=== PATIENT | female | born 1985 | race American Indian/Alaskan Native ===

== ENCOUNTER 2016-07-14 14:00 | Inpatient (IN) | payer OTHER ==
[2016-07-14] MEDS ORDERED: NACL 0.9% 1000 ML 1,000 ML IV ONE ×2 (14:26→16:24)
[2016-07-14] MEDS ORDERED: PROTONIX IV ONE (14:26)
[2016-07-14] MEDS ORDERED: CLEOCIN 600 MG/50 mL 50 ML IV ONE (14:27)
[2016-07-14 14:47] LABS: ISTAT Base Excess -7; ISTAT HCO3 18.6; ISTAT PCO2 34.2 (35-45); ISTAT PH 7.345 (7.35-7.45); ISTAT PO2 24 (80-105); ISTAT SO2 39; ISTAT TCO2 20
[2016-07-14] MEDS ORDERED: CORDARONE IV ONE (14:51)
[2016-07-14] MEDS ORDERED: XYLOCAINE 1%/ EPI 1:100,000 INFILTRATI ONE (14:51)
[2016-07-14] MEDS ORDERED: VANCOMYCIN PHARMACY TO DOSE IV SCH (15:00)
[2016-07-14 15:10] LABS: Anion Gap 24 mmol/L; BUN/Creatinine Ratio 14.14; Blood Urea Nitrogen 99 mg/dL (7-17); Calcium 8.8 mg/dL (8.4-10.2); Carbon Dioxide 16 mmol/L (22-30); Chloride 92.9 mmol/L (98-107); Glucose 107 mg/dL (65-100); Potassium 4.5 mmol/L (3.6-5.0); Sodium 128 mmol/L (137-145)
[2016-07-14 15:14] LABS: Alanine Aminotransferase 26 units/L (7-56); Albumin 2.3 g/dL (3.9-5); Albumin/Globulin Ratio 0.4 %; Alkaline Phosphatase 166 units/L (35-129); Bilirubin,Direct 1.5 mg/dL (0-0.2); Bilirubin,Indirect 0.6 mg/dL; Bilirubin,Total 2.1 mg/dL (0.1-1.2); Total Protein 8.6 g/dL (6.3-8.2)
[2016-07-14] MEDS: ZOSYN/NS 3.375GM/50ML 50 ML IV ONE ×2 (15:14→15:27)
[2016-07-14] MEDS: NACL 0.9% 1000 ML 1,000 ML IV ONE ×2 (15:14→15:28)
[2016-07-14] MEDS ORDERED: XYLOCAINE 1% 20 mL INFILTRATI ONE (15:15)
[2016-07-14 15:21] LABS: Hemoglobin 9.2 gm/dl (10.1-14.3); Mean Corpuscular HGB Conc 33 % (30-34); Mean Corpuscular Hemoglobin 26 pg (28-32); Mean Corpuscular Volume 80 fl (79-97); Platelet Count 373 K/mm3 (140-440); Red Cell Distribution Width 14.7 % (13.2-15.2); White Blood Count 17.3 K/mm3 (4.5-11.0)
[2016-07-14 15:27] LABS: Urine Drugs of Abuse Note Disclamer
[2016-07-14 15:31] LABS: INR 1.22 (0.87-1.13)
[2016-07-14 15:32] LABS: Partial Thromboplastin Time 30.8 Sec. (24.2-36.6)
[2016-07-14] MEDS ORDERED: MERREM 1,000 MG in NACL 0.9% 100 ML IV ONE (15:34)
[2016-07-14] MEDS ORDERED: SODIUM BICARBONATE IV ONE ×2 (15:40→16:13)
[2016-07-14] MEDS ORDERED: SODIUM BICARBONATE 150 MEQ in D5W 1,000 ML IV ONE (15:46)
[2016-07-14 15:56] LABS: Bacteria,Urine 2+ /HPF (Negative); Bilirubin,Urine SM (Negative); Blood,Urine NEG (Negative); Ketones,Urine NEG (Negative); Leukocyte Esterase,Urine NEG (Negative); Mucus,Urine 1+ /HPF; Nitrite,Urine NEG (Negative)
[2016-07-14] MEDS ORDERED: VANCOMYCIN/NS 1 GM/250 ML 250 ML IV NR (16:00)
[2016-07-14 16:08] LABS: Anisocytosis 1+; Basophils % (Manual) 0 % (0.0-1.8); Blastocytes % (Manual) 0 %; Eosinophils % (Manual) 0 % (0.0-4.3); Poikilocytosis 1+
--- NOTE | 2016-07-14 16:08 | Emergency Department Report ---
ED General Adult HPI - General Chief complaint: Chest Pain Stated complaint: CHEST PAIN Time Seen by Provider: 07/14/16 14:18 Source: EMS Mode of arrival: Stretcher Limitations: No Limitations - History of Present Illness Initial comments: Actually the patient is a complaint of chest pain at all. This entered an area apparently by others. This patient was transported via EMS with a heart rate of approximately 170-180 and apparent atrial fibrillation with rapid ventricular response. EMS was unsuccessful in getting IV access. The patient had an Accu-Chek obtained which was over 100. Medics state that the patient was hypotensive and they were unable to get a pulse oximetry. The patient herself was unwilling to provide any more information other than toothache 5 days. The patient was quite lethargic and as the medics described "nonverbal" largely. She would answer very limited questions. She was obviously coughing. She did admit to feeling sick for at least 5 days, weak and having a toothache. Later she would admit that she has a history of HIV which she is apparently ignored and never sought out treatment. -: days(s) Location: mouth (left lower wisdom tooth) Quality: aching Consistency: intermittent Improves with: none Worsens with: none Associated Symptoms: other (very poor historian) - Related Data Allergies Allergy/AdvReac Type Severity Reaction Status Date / Time Penicillins Allergy Swelling Verified 07/14/16 15:15 ED Review of Systems ROS: Stated complaint: CHEST PAIN Other details as noted in HPI Comment: Unobtainable due to pts medical conditions ED Past Medical Hx - Past Medical History Hx Diabetes: Yes Hx Asthma: Yes Additional medical history: HIV positive - Social History Smoking Status: Unknown if ever smoked ED Physical Exam - General Limitations: No Limitations General appearance: lethargic - Head Head exam: Present: atraumatic, normocephalic - Eye Eye exam: Present: normal appearance, PERRL, EOMI. Absent: scleral icterus - ENT ENT exam: Present: mucous membranes dry, other (and packed it and carious left third molar gingival reaction no abscess noted no trismus) - Neck Neck exam: Present: normal inspection, lymphadenopathy (mild anterior cervical adenopathy bilateral). Absent: meningismus - Respiratory Respiratory exam: Present: normal lung sounds bilaterally. Absent: respiratory distress - Cardiovascular Cardiovascular Exam: Present: regular rate, normal rhythm. Absent: systolic murmur, diastolic murmur, rubs, gallop - GI/Abdominal GI/Abdominal exam: Present: soft, normal bowel sounds. Absent: distended, tenderness, guarding, rebound, rigid - Extremities Exam Extremities exam: Present: normal inspection - Back Exam Back exam: Present: normal inspection - Neurological Exam Neurological exam: Present: CN II-XII intact (as testable), other (lethargic I don't think disoriented however). Absent: motor sensory deficit - Psychiatric Psychiatric exam: Present: anxious, flat affect - Skin Skin exam: Present: warm, dry, intact, normal color. Absent: rash ED Course Vital Signs 07/14/16 07/14/16 07/14/16 14:06 14:07 14:15 Temperature 99.1 F Pulse Rate 170 H 111 H 165 H Respiratory 20 12 24 Rate Blood Pressure 89/51 84/48 Blood Pressure 85/50 [Left] O2 Sat by Pulse 99 98 Oximetry 07/14/16 07/14/16 07/14/16 14:30 14:45 15:00 Temperature Pulse Rate 168 H 176 H 124 H Respiratory 13 19 24 Rate Blood Pressure 84/48 106/47 106/47 Blood Pressure [Left] O2 Sat by Pulse 100 79 L 84 Oximetry 07/14/16 07/14/16 07/14/16 15:15 15:30 15:50 Temperature 99.4 F Pulse Rate 120 H 117 H Respiratory 22 11 L Rate Blood Pressure 90/52 100/55 Blood Pressure [Left] O2 Sat by Pulse Oximetry 07/14/16 15:51 Temperature Pulse Rate Respiratory 20 Rate Blood Pressure Blood Pressure [Left] O2 Sat by Pulse 100 Oximetry - Reevaluation(s) Reevaluation #1: Patient presented his atrial fibrillation with a ventricular response of about 160-170. This was presumed to be related to hypovolemia. She was hypotensive. She was given a bolus of IV fluid. She did spontaneously cardiovert to sinus rhythm. Her blood pressure remained on the low side however therefore a central line was placed in the right groin. Later the patient would admit that she was HIV positive and had not ever been treated. She is still providing very little history. She obviously has cough. Chest x-ray is yet pending. The patient was treated for presumed sepsis. She is penicillin allergic. I gave her clindamycin and vancomycin and meropenem as she is penicillin allergic. Further antibiotic coverage may be necessary based on her chest x- ray and infectious disease consultation. I spoke with the marketing communications associate concerning the patient's renal failure and acidosis. We went over all her labs. The marketing communications associate agreed with the administration of one amp of bicarbonate and a bicarbonate drip to follow. She will be seeing the patient. I have already spoken to the hospitalist Dr. sOhea will be admitting this patient presumably to the intensive care unit. With additional fluids the patient's blood pressure has improved. At this point pressors have not been required. I have encouraged x-ray to do her film. 07/14/16 16:14 - Central Line Placement Left Femoral Consent Obtained: verbal consent, emergent situation Time Out Performed: No Patient Placed on Monitor/Pulse Ox: Yes MD Prep: mask, gown, gloves Central Line Prep: Chlorhexidine scrub Local Anesthesia Used: Lidocaine 1% Amount of Anesthesia Used (mls): 8 Ultrasound Used for Placement: Yes Central Line Lumen Inserted: triple Bloods Obtained for Lab: Yes Central Line Position: good blood return (venous and nonpulsatile), all ports aspirated, flus, sutured in place with 2-0 Dressing Applied: Tegaderm Patient Tolerated Procedure: well Complications: none ED Medical Decision Making - Lab Data Result diagrams: 07/14/16 14:33 07/14/16 14:33 Laboratory Results - last 24 hr 07/14/16 07/14/16 07/14/16 14:33 14:33 14:33 WBC 17.3 H RBC 3.50 L Hgb 9.2 L Hct 28.0 L MCV 80 MCH 26 L MCHC 33 RDW 14.7 Plt Count 373 Add Manual Diff Complete Total Counted 100 Seg Neuts % (Manual) 72.0 H Band Neutrophils % 18.0 Lymphocytes % (Manual) 7.0 L Reactive Lymphs % (Man) 0 Monocytes % (Manual) 2.0 Eosinophils % (Manual) 0 Basophils % (Manual) 0 Metamyelocytes % 1.0 Myelocytes % 0 Promyelocytes % 0 Blast Cells % 0 Nucleated RBC % Not Reportable Seg Neutrophils # Man 12.5 H Band Neutrophils # 3.1 Lymphocytes # (Manual) 1.2 Abs React Lymphs (Man) 0.0 Monocytes # (Manual) 0.3 Eosinophils # (Manual) 0.0 Basophils # (Manual) 0.0 Metamyelocytes # 0.2 Myelocytes # 0.0 Promyelocytes # 0.0 Blast Cells # 0.0 WBC Morphology Not Reportable Hypersegmented Neuts Not Reportable Hyposegmented Neuts Not Reportable Hypogranular Neuts Not Reportable Smudge Cells Not Reportable Toxic Granulation Not Reportable Toxic Vacuolation Not Reportable Dohle Bodies 1+ Pelger-Huet Anomaly Not Reportable Rishabh Rods Not Reportable Platelet Estimate Consistent w auto Clumped Platelets Not Reportable Plt Clumps, EDTA Not Reportable Large Platelets Not Reportable Giant Platelets Few Platelet Satelliting Not Reportable Plt Morphology Comment Not Reportable RBC Morphology Not Reportable Dimorphic RBCs Not Reportable Polychromasia Not Reportable Hypochromasia 1+ Poikilocytosis 1+ Anisocytosis 1+ Microcytosis Not Reportable Macrocytosis Not Reportable Spherocytes Not Reportable Pappenheimer Bodies Not Reportable Sickle Cells Not Reportable Target Cells Not Reportable Tear Drop Cells Not Reportable Ovalocytes 1+ Helmet Cells Not Reportable [place] Bodies Not Reportable [place] Rings Not Reportable Augusto Cells Not Reportable Bite Cells Not Reportable Crenated Cell 1+ Elliptocytes Not Reportable Acanthocytes (Spur) Not Reportable Rouleaux Not Reportable Hemoglobin C Crystals Not Reportable Schistocytes Not Reportable Malaria parasites Not Reportable Stephen Bodies Not Reportable Hem Pathologist Commnt No PT INR APTT POC ABG pH POC ABG pCO2 POC ABG pO2 POC ABG HCO3 POC ABG Total CO2 POC ABG O2 Sat POC ABG Base Excess FiO2 Sodium 128 L Potassium 4.5 Chloride 92.9 L Carbon Dioxide 16 L Anion Gap 24 BUN 99 H Creatinine 7.0 H Estimated GFR 8 BUN/Creatinine Ratio 14.14 Glucose 107 H Lactic Acid 2.0 Calcium 8.8 Magnesium Total Bilirubin Direct Bilirubin Indirect Bilirubin AST ALT Alkaline Phosphatase Troponin T NT-Pro-B Natriuret Pep Total Protein Albumin Albumin/Globulin Ratio TSH Free T4 Urine Color Urine Turbidity Urine pH Ur Specific [place] Urine Protein Urine Glucose (UA) Urine Ketones Urine Blood Urine Nitrite Urine Bilirubin Urine Ictotest Urine Urobilinogen Ur Leukocyte Esterase Urine WBC (Auto) Urine RBC (Auto) U Epithel Cells (Auto) Urine Bacteria (Auto) Urine WBC Clumps Urine Mucus Urine HCG, Qual Urine Opiates Screen Urine Methadone Screen Ur Barbiturates Screen Ur Phencyclidine Scrn Ur Amphetamines Screen U Benzodiazepines Scrn Urine Cocaine Screen U Marijuana (THC) Screen Drugs of Abuse Note 07/14/16 07/14/16 07/14/16 14:33 14:33 14:33 WBC RBC Hgb Hct MCV MCH MCHC RDW Plt Count Add Manual Diff Total Counted Seg Neuts % (Manual) Band Neutrophils % Lymphocytes % (Manual) Reactive Lymphs % (Man) Monocytes % (Manual) Eosinophils % (Manual) Basophils % (Manual) Metamyelocytes % Myelocytes % Promyelocytes % Blast Cells % Nucleated RBC % Seg Neutrophils # Man Band Neutrophils # Lymphocytes # (Manual) Abs React Lymphs (Man) Monocytes # (Manual) Eosinophils # (Manual) Basophils # (Manual) Metamyelocytes # Myelocytes # Promyelocytes # Blast Cells # WBC Morphology Hypersegmented Neuts Hyposegmented Neuts Hypogranular Neuts Smudge Cells Toxic Granulation Toxic Vacuolation Dohle Bodies Pelger-Huet Anomaly Rishabh Rods Platelet Estimate Clumped Platelets Plt Clumps, EDTA Large Platelets Giant Platelets Platelet Satelliting Plt Morphology Comment RBC Morphology Dimorphic RBCs Polychromasia Hypochromasia Poikilocytosis Anisocytosis Microcytosis Macrocytosis Spherocytes Pappenheimer Bodies Sickle Cells Target Cells Tear Drop Cells Ovalocytes Helmet Cells [place] Bodies [place] Rings Keno Cells Bite Cells Crenated Cell Elliptocytes Acanthocytes (Spur) Rouleaux Hemoglobin C Crystals Schistocytes Malaria parasites Stephen Bodies Hem Pathologist Commnt PT 15.3 H INR 1.22 H APTT 30.8 POC ABG pH POC ABG pCO2 POC ABG pO2 POC ABG HCO3 POC ABG Total CO2 POC ABG O2 Sat POC ABG Base Excess FiO2 Sodium Potassium Chloride Carbon Dioxide Anion Gap BUN Creatinine Estimated GFR BUN/Creatinine Ratio Glucose Lactic Acid Calcium Magnesium 2.2 Total Bilirubin 2.1 H Direct Bilirubin 1.5 H Indirect Bilirubin 0.6 AST 32 ALT 26 Alkaline Phosphatase 166 H Troponin T < 0.010 NT-Pro-B Natriuret Pep Total Protein 8.6 H Albumin 2.3 L Albumin/Globulin Ratio 0.4 TSH Free T4 Urine Color Urine Turbidity Urine pH Ur Specific [place] Urine Protein Urine Glucose (UA) Urine Ketones Urine Blood Urine Nitrite Urine Bilirubin Urine Ictotest Urine Urobilinogen Ur Leukocyte Esterase Urine WBC (Auto) Urine RBC (Auto) U Epithel Cells (Auto) Urine Bacteria (Auto) Urine WBC Clumps Urine Mucus Urine HCG, Qual Urine Opiates Screen Urine Methadone Screen Ur Barbiturates Screen Ur Phencyclidine Scrn Ur Amphetamines Screen U Benzodiazepines Scrn Urine Cocaine Screen U Marijuana (THC) Screen Drugs of Abuse Note 07/14/16 07/14/16 07/14/16 14:33 14:33 14:42 WBC RBC Hgb Hct MCV MCH MCHC RDW Plt Count Add Manual Diff Total Counted Seg Neuts % (Manual) Band Neutrophils % Lymphocytes % (Manual) Reactive Lymphs % (Man) Monocytes % (Manual) Eosinophils % (Manual) Basophils % (Manual) Metamyelocytes % Myelocytes % Promyelocytes % Blast Cells % Nucleated RBC % Seg Neutrophils # Man Band Neutrophils # Lymphocytes # (Manual) Abs React Lymphs (Man) Monocytes # (Manual) Eosinophils # (Manual) Basophils # (Manual) Metamyelocytes # Myelocytes # Promyelocytes # Blast Cells # WBC Morphology Hypersegmented Neuts Hyposegmented Neuts Hypogranular Neuts Smudge Cells Toxic Granulation Toxic Vacuolation Dohle Bodies Pelger-Huet Anomaly Rishabh Rods Platelet Estimate Clumped Platelets Plt Clumps, EDTA Large Platelets Giant Platelets Platelet Satelliting Plt Morphology Comment RBC Morphology Dimorphic RBCs Polychromasia Hypochromasia Poikilocytosis Anisocytosis Microcytosis Macrocytosis Spherocytes Pappenheimer Bodies Sickle Cells Target Cells Tear Drop Cells Ovalocytes Helmet Cells [place] Bodies [place] Rings Keno Cells Bite Cells Crenated Cell Elliptocytes Acanthocytes (Spur) Rouleaux Hemoglobin C Crystals Schistocytes Malaria parasites Stephen Bodies Hem Pathologist Commnt PT INR APTT POC ABG pH 7.345 L POC ABG pCO2 34.2 L POC ABG pO2 24 L POC ABG HCO3 18.6 POC ABG Total CO2 20 POC ABG O2 Sat 39 POC ABG Base Excess -7 FiO2 28 Sodium Potassium Chloride Carbon Dioxide Anion Gap BUN Creatinine Estimated GFR BUN/Creatinine Ratio Glucose Lactic Acid Calcium Magnesium Total Bilirubin Direct Bilirubin Indirect Bilirubin AST ALT Alkaline Phosphatase Troponin T NT-Pro-B Natriuret Pep 3986 H Total Protein Albumin Albumin/Globulin Ratio TSH 1.060 Free T4 1.21 Urine Color Urine Turbidity Urine pH Ur Specific [place] Urine Protein Urine Glucose (UA) Urine Ketones Urine Blood Urine Nitrite Urine Bilirubin Urine Ictotest Urine Urobilinogen Ur Leukocyte Esterase Urine WBC (Auto) Urine RBC (Auto) U Epithel Cells (Auto) Urine Bacteria (Auto) Urine WBC Clumps Urine Mucus Urine HCG, Qual Urine Opiates Screen Urine Methadone Screen Ur Barbiturates Screen Ur Phencyclidine Scrn Ur Amphetamines Screen U Benzodiazepines Scrn Urine Cocaine Screen U Marijuana (THC) Screen Drugs of Abuse Note 07/14/16 07/14/16 Unknown Unknown WBC RBC Hgb Hct MCV MCH MCHC RDW Plt Count Add Manual Diff Total Counted Seg Neuts % (Manual) Band Neutrophils % Lymphocytes % (Manual) Reactive Lymphs % (Man) Monocytes % (Manual) Eosinophils % (Manual) Basophils % (Manual) Metamyelocytes % Myelocytes % Promyelocytes % Blast Cells % Nucleated RBC % Seg Neutrophils # Man Band Neutrophils # Lymphocytes # (Manual) Abs React Lymphs (Man) Monocytes # (Manual) Eosinophils # (Manual) Basophils # (Manual) Metamyelocytes # Myelocytes # Promyelocytes # Blast Cells # WBC Morphology Hypersegmented Neuts Hyposegmented Neuts Hypogranular Neuts Smudge Cells Toxic Granulation Toxic Vacuolation Dohle Bodies Pelger-Huet Anomaly Rishabh Rods Platelet Estimate Clumped Platelets Plt Clumps, EDTA Large Platelets Giant Platelets Platelet Satelliting Plt Morphology Comment RBC Morphology Dimorphic RBCs Polychromasia Hypochromasia Poikilocytosis Anisocytosis Microcytosis Macrocytosis Spherocytes Pappenheimer Bodies Sickle Cells Target Cells Tear Drop Cells Ovalocytes Helmet Cells [place] Bodies [place] Rings Augusto Cells Bite Cells Crenated Cell Elliptocytes Acanthocytes (Spur) Rouleaux Hemoglobin C Crystals Schistocytes Malaria parasites Stephen Bodies Hem Pathologist Commnt PT INR APTT POC ABG pH POC ABG pCO2 POC ABG pO2 POC ABG HCO3 POC ABG Total CO2 POC ABG O2 Sat POC ABG Base Excess FiO2 Sodium Potassium Chloride Carbon Dioxide Anion Gap BUN Creatinine Estimated GFR BUN/Creatinine Ratio Glucose Lactic Acid Calcium Magnesium Total Bilirubin Direct Bilirubin Indirect Bilirubin AST ALT Alkaline Phosphatase Troponin T NT-Pro-B Natriuret Pep Total Protein Albumin Albumin/Globulin Ratio TSH Free T4 Urine Color Jen Urine Turbidity Turbid Urine pH 5.0 Ur Specific [place] 1.028 Urine Protein 100 mg/dl Urine Glucose (UA) Neg Urine Ketones Neg Urine Blood Neg Urine Nitrite Neg Urine Bilirubin Sm Urine Ictotest Negative Urine Urobilinogen 4.0 Ur Leukocyte Esterase Neg Urine WBC (Auto) 5.0 Urine RBC (Auto) 16.0 U Epithel Cells (Auto) 10.0 Urine Bacteria (Auto) 2+ Urine WBC Clumps 3+ Urine Mucus 1+ Urine HCG, Qual Negative Urine Opiates Screen Presumptive negative Urine Methadone Screen Presumptive negative Ur Barbiturates Screen Presumptive negative Ur Phencyclidine Scrn Presumptive negative Ur Amphetamines Screen Presumptive negative U Benzodiazepines Scrn Presumptive negative Urine Cocaine Screen Presumptive negative U Marijuana (THC) Screen Presumptive negative Drugs of Abuse Note Disclamer Laboratory Results - last 24 hr 07/14/16 07/14/16 07/14/16 14:33 14:33 14:33 WBC 17.3 H RBC 3.50 L Hgb 9.2 L Hct 28.0 L MCV 80 MCH 26 L MCHC 33 RDW 14.7 Plt Count 373 Add Manual Diff Complete Total Counted 100 Seg Neuts % (Manual) 72.0 H Band Neutrophils % 18.0 Lymphocytes % (Manual) 7.0 L Reactive Lymphs % (Man) 0 Monocytes % (Manual) 2.0 Eosinophils % (Manual) 0 Basophils % (Manual) 0 Metamyelocytes % 1.0 Myelocytes % 0 Promyelocytes % 0 Blast Cells % 0 Nucleated RBC % Not Reportable Seg Neutrophils # Man 12.5 H Band Neutrophils # 3.1 Lymphocytes # (Manual) 1.2 Abs React Lymphs (Man) 0.0 Monocytes # (Manual) 0.3 Eosinophils # (Manual) 0.0 Basophils # (Manual) 0.0 Metamyelocytes # 0.2 Myelocytes # 0.0 Promyelocytes # 0.0 Blast Cells # 0.0 WBC Morphology Not Reportable Hypersegmented Neuts Not Reportable Hyposegmented Neuts Not Reportable Hypogranular Neuts Not Reportable Smudge Cells Not Reportable Toxic Granulation Not Reportable Toxic Vacuolation Not Reportable Dohle Bodies 1+ Pelger-Huet Anomaly Not Reportable Rishabh Rods Not Reportable Platelet Estimate Consistent w auto Clumped Platelets Not Reportable Plt Clumps, EDTA Not Reportable Large Platelets Not Reportable Giant Platelets Few Platelet Satelliting Not Reportable Plt Morphology Comment Not Reportable RBC Morphology Not Reportable Dimorphic RBCs Not Reportable Polychromasia Not Reportable Hypochromasia 1+ Poikilocytosis 1+ Anisocytosis 1+ Microcytosis Not Reportable Macrocytosis Not Reportable Spherocytes Not Reportable Pappenheimer Bodies Not Reportable Sickle Cells Not Reportable Target Cells Not Reportable Tear Drop Cells Not Reportable Ovalocytes 1+ Helmet Cells Not Reportable [place] Bodies Not Reportable [place] Rings Not Reportable [place] Cells Not Reportable Bite Cells Not Reportable Crenated Cell 1+ Elliptocytes Not Reportable Acanthocytes (Spur) Not Reportable Rouleaux Not Reportable Hemoglobin C Crystals Not Reportable Schistocytes Not Reportable Malaria parasites Not Reportable Stephen Bodies Not Reportable Hem Pathologist Commnt No PT INR APTT POC ABG pH POC ABG pCO2 POC ABG pO2 POC ABG HCO3 POC ABG Total CO2 POC ABG O2 Sat POC ABG Base Excess FiO2 Sodium 128 L Potassium 4.5 Chloride 92.9 L Carbon Dioxide 16 L Anion Gap 24 BUN 99 H Creatinine 7.0 H Estimated GFR 8 BUN/Creatinine Ratio 14.14 Glucose 107 H Lactic Acid 2.0 Calcium 8.8 Magnesium Total Bilirubin Direct Bilirubin Indirect Bilirubin AST ALT Alkaline Phosphatase Troponin T NT-Pro-B Natriuret Pep Total Protein Albumin Albumin/Globulin Ratio TSH Free T4 Urine Color Urine Turbidity Urine pH Ur Specific [place] Urine Protein Urine Glucose (UA) Urine Ketones Urine Blood Urine Nitrite Urine Bilirubin Urine Ictotest Urine Urobilinogen Ur Leukocyte Esterase Urine WBC (Auto) Urine RBC (Auto) U Epithel Cells (Auto) Urine Bacteria (Auto) Urine WBC Clumps Urine Mucus Urine HCG, Qual Urine Opiates Screen Urine Methadone Screen Ur Barbiturates Screen Ur Phencyclidine Scrn Ur Amphetamines Screen U Benzodiazepines Scrn Urine Cocaine Screen U Marijuana (THC) Screen Drugs of Abuse Note 07/14/16 07/14/16 07/14/16 14:33 14:33 14:33 WBC RBC Hgb Hct MCV MCH MCHC RDW Plt Count Add Manual Diff Total Counted Seg Neuts % (Manual) Band Neutrophils % Lymphocytes % (Manual) Reactive Lymphs % (Man) Monocytes % (Manual) Eosinophils % (Manual) Basophils % (Manual) Metamyelocytes % Myelocytes % Promyelocytes % Blast Cells % Nucleated RBC % Seg Neutrophils # Man Band Neutrophils # Lymphocytes # (Manual) Abs React Lymphs (Man) Monocytes # (Manual) Eosinophils # (Manual) Basophils # (Manual) Metamyelocytes # Myelocytes # Promyelocytes # Blast Cells # WBC Morphology Hypersegmented Neuts Hyposegmented Neuts Hypogranular Neuts Smudge Cells Toxic Granulation Toxic Vacuolation Dohle Bodies Pelger-Huet Anomaly Rishabh Rods Platelet Estimate Clumped Platelets Plt Clumps, EDTA Large Platelets Giant Platelets Platelet Satelliting Plt Morphology Comment RBC Morphology Dimorphic RBCs Polychromasia Hypochromasia Poikilocytosis Anisocytosis Microcytosis Macrocytosis Spherocytes Pappenheimer Bodies Sickle Cells Target Cells Tear Drop Cells Ovalocytes Helmet Cells [place] Bodies [place] Rings Keno Cells Bite Cells Crenated Cell Elliptocytes Acanthocytes (Spur) Rouleaux Hemoglobin C Crystals Schistocytes Malaria parasites Stephen Bodies Hem Pathologist Commnt PT 15.3 H INR 1.22 H APTT 30.8 POC ABG pH POC ABG pCO2 POC ABG pO2 POC ABG HCO3 POC ABG Total CO2 POC ABG O2 Sat POC ABG Base Excess FiO2 Sodium Potassium Chloride Carbon Dioxide Anion Gap BUN Creatinine Estimated GFR BUN/Creatinine Ratio Glucose Lactic Acid Calcium Magnesium 2.2 Total Bilirubin 2.1 H Direct Bilirubin 1.5 H Indirect Bilirubin 0.6 AST 32 ALT 26 Alkaline Phosphatase 166 H Troponin T < 0.010 NT-Pro-B Natriuret Pep Total Protein 8.6 H Albumin 2.3 L Albumin/Globulin Ratio 0.4 TSH Free T4 Urine Color Urine Turbidity Urine pH Ur Specific [place] Urine Protein Urine Glucose (UA) Urine Ketones Urine Blood Urine Nitrite Urine Bilirubin Urine Ictotest Urine Urobilinogen Ur Leukocyte Esterase Urine WBC (Auto) Urine RBC (Auto) U Epithel Cells (Auto) Urine Bacteria (Auto) Urine WBC Clumps Urine Mucus Urine HCG, Qual Urine Opiates Screen Urine Methadone Screen Ur Barbiturates Screen Ur Phencyclidine Scrn Ur Amphetamines Screen U Benzodiazepines Scrn Urine Cocaine Screen U Marijuana (THC) Screen Drugs of Abuse Note 07/14/16 07/14/16 07/14/16 14:33 14:33 14:42 WBC RBC Hgb Hct MCV MCH MCHC RDW Plt Count Add Manual Diff Total Counted Seg Neuts % (Manual) Band Neutrophils % Lymphocytes % (Manual) Reactive Lymphs % (Man) Monocytes % (Manual) Eosinophils % (Manual) Basophils % (Manual) Metamyelocytes % Myelocytes % Promyelocytes % Blast Cells % Nucleated RBC % Seg Neutrophils # Man Band Neutrophils # Lymphocytes # (Manual) Abs React Lymphs (Man) Monocytes # (Manual) Eosinophils # (Manual) Basophils # (Manual) Metamyelocytes # Myelocytes # Promyelocytes # Blast Cells # WBC Morphology Hypersegmented Neuts Hyposegmented Neuts Hypogranular Neuts Smudge Cells Toxic Granulation Toxic Vacuolation Dohle Bodies Pelger-Huet Anomaly Rishabh Rods Platelet Estimate Clumped Platelets Plt Clumps, EDTA Large Platelets Giant Platelets Platelet Satelliting Plt Morphology Comment RBC Morphology Dimorphic RBCs Polychromasia Hypochromasia Poikilocytosis Anisocytosis Microcytosis Macrocytosis Spherocytes Pappenheimer Bodies Sickle Cells Target Cells Tear Drop Cells Ovalocytes Helmet Cells [place] Bodies [place] Rings Augusto Cells Bite Cells Crenated Cell Elliptocytes Acanthocytes (Spur) Rouleaux Hemoglobin C Crystals Schistocytes Malaria parasites Stephen Bodies Hem Pathologist Commnt PT INR APTT POC ABG pH 7.345 L POC ABG pCO2 34.2 L POC ABG pO2 24 L POC ABG HCO3 18.6 POC ABG Total CO2 20 POC ABG O2 Sat 39 POC ABG Base Excess -7 FiO2 28 Sodium Potassium Chloride Carbon Dioxide Anion Gap BUN Creatinine Estimated GFR BUN/Creatinine Ratio Glucose Lactic Acid Calcium Magnesium Total Bilirubin Direct Bilirubin Indirect Bilirubin AST ALT Alkaline Phosphatase Troponin T NT-Pro-B Natriuret Pep 3986 H Total Protein Albumin Albumin/Globulin Ratio TSH 1.060 Free T4 1.21 Urine Color Urine Turbidity Urine pH Ur Specific [place] Urine Protein Urine Glucose (UA) Urine Ketones Urine Blood Urine Nitrite Urine Bilirubin Urine Ictotest Urine Urobilinogen Ur Leukocyte Esterase Urine WBC (Auto) Urine RBC (Auto) U Epithel Cells (Auto) Urine Bacteria (Auto) Urine WBC Clumps Urine Mucus Urine HCG, Qual Urine Opiates Screen Urine Methadone Screen Ur Barbiturates Screen Ur Phencyclidine Scrn Ur Amphetamines Screen U Benzodiazepines Scrn Urine Cocaine Screen U Marijuana (THC) Screen Drugs of Abuse Note 07/14/16 07/14/16 Unknown Unknown WBC RBC Hgb Hct MCV MCH MCHC RDW Plt Count Add Manual Diff Total Counted Seg Neuts % (Manual) Band Neutrophils % Lymphocytes % (Manual) Reactive Lymphs % (Man) Monocytes % (Manual) Eosinophils % (Manual) Basophils % (Manual) Metamyelocytes % Myelocytes % Promyelocytes % Blast Cells % Nucleated RBC % Seg Neutrophils # Man Band Neutrophils # Lymphocytes # (Manual) Abs React Lymphs (Man) Monocytes # (Manual) Eosinophils # (Manual) Basophils # (Manual) Metamyelocytes # Myelocytes # Promyelocytes # Blast Cells # WBC Morphology Hypersegmented Neuts Hyposegmented Neuts Hypogranular Neuts Smudge Cells Toxic Granulation Toxic Vacuolation Dohle Bodies Pelger-Huet Anomaly Rishabh Rods Platelet Estimate Clumped Platelets Plt Clumps, EDTA Large Platelets Giant Platelets Platelet Satelliting Plt Morphology Comment RBC Morphology Dimorphic RBCs Polychromasia Hypochromasia Poikilocytosis Anisocytosis Microcytosis Macrocytosis Spherocytes Pappenheimer Bodies Sickle Cells Target Cells Tear Drop Cells Ovalocytes Helmet Cells Hanna-[place] Bodies Brighton Rings Augusto Cells Bite Cells Crenated Cell Elliptocytes Acanthocytes (Spur) Rouleaux Hemoglobin C Crystals Schistocytes Malaria parasites Stephen Bodies Hem Pathologist Commnt PT INR APTT POC ABG pH POC ABG pCO2 POC ABG pO2 POC ABG HCO3 POC ABG Total CO2 POC ABG O2 Sat POC ABG Base Excess FiO2 Sodium Potassium Chloride Carbon Dioxide Anion Gap BUN Creatinine Estimated GFR BUN/Creatinine Ratio Glucose Lactic Acid Calcium Magnesium Total Bilirubin Direct Bilirubin Indirect Bilirubin AST ALT Alkaline Phosphatase Troponin T NT-Pro-B Natriuret Pep Total Protein Albumin Albumin/Globulin Ratio TSH Free T4 Urine Color Jen Urine Turbidity Turbid Urine pH 5.0 Ur Specific [place] 1.028 Urine Protein 100 mg/dl Urine Glucose (UA) Neg Urine Ketones Neg Urine Blood Neg Urine Nitrite Neg Urine Bilirubin Sm Urine Ictotest Negative Urine Urobilinogen 4.0 Ur Leukocyte Esterase Neg Urine WBC (Auto) 5.0 Urine RBC (Auto) 16.0 U Epithel Cells (Auto) 10.0 Urine Bacteria (Auto) 2+ Urine WBC Clumps 3+ Urine Mucus 1+ Urine HCG, Qual Negative Urine Opiates Screen Presumptive negative Urine Methadone Screen Presumptive negative Ur Barbiturates Screen Presumptive negative Ur Phencyclidine Scrn Presumptive negative Ur Amphetamines Screen Presumptive negative U Benzodiazepines Scrn Presumptive negative Urine Cocaine Screen Presumptive negative U Marijuana (THC) Screen Presumptive negative Drugs of Abuse Note Disclamer - EKG Data -: EKG Interpreted by Me - EKG Data His cardioversion EKG showed normal sinus rhythm normal axis and fairly normal repolarization. No evidence of ischemia. 07/14/16 16:19 - Radiology Data interpreted by me: Chest x-ray appears to show a left lower lobe infiltrate. The cardiac silhouette is probably normal. Critical Care Time: Yes Critical care time in (mins) excluding proc time.: 90 Critical care attestation.: If time is entered above; I have spent that time in minutes in the direct care of this critically ill patient, excluding procedure time. ED Disposition Clinical Impression: Severe sepsis, Acute renal injury, Atrial fibrillation with RVR Hypotension Qualifiers: Hypotension type: unspecified hypotension type Qualified Code(s): I95.9 - Hypotension, unspecified Pneumonia Qualifiers: Pneumonia type: due to unspecified organism Laterality: left Lung location: lower lobe of lung Qualified Code(s): J18.9 - Pneumonia, unspecified organism Disposition: OP ADMITTED IP TO THIS HOSP Is pt being admited?: Yes Does the pt Need Aspirin: No Condition: Stable Instructions: Bacterial Pneumonia (ED) Time of Disposition: 16:23
[2016-07-14 16:09] LABS: Hypochromasia 1+
[2016-07-14 16:11] LABS: Crenated RBC 1+; Diff Status Complete; Dohle Bodies 1+; Giant Platelets Few; Ovalocytes 1+; Platelet Estimate Consistent w Auto
[2016-07-14] MEDS ORDERED: TYLENOL ONE (16:31)
[2016-07-14] MEDS ORDERED: VANCOMYCIN/NS 1 GM/250 ML 250 ML IV ONE ×2 (17:00)
[2016-07-14 17:33] LABS: BUN/Creatinine Ratio 14.84; Calcium 7.6 mg/dL (8.4-10.2); Chloride 97.8 mmol/L (98-107)
[2016-07-14 17:52] LABS: LA REFLEX Y
[2016-07-14] MEDS ORDERED: DILAUDID IV PRN (19:53)
[2016-07-14] MEDS ORDERED: ZOFRAN IV PRN (19:53)
--- NOTE | 2016-07-14 20:16 | Admit Criteria Form ---
Admission Criteria Documentation: SEPSIS and OTHER FEBRILE ILLNESS, W/O FOCAL INFECTION Clinical Indications for Admission to Inpatient Care ( Place 'X' for any and all applicable criteria): Admission is indicated for ANY ONE of the following (1)(2)(3)(4): [ ] I. Bacteremia [X ]II. Suspected or identified specific infection requiring hospitalization (eg, meningitis, endocarditis) [ X]III. Hemodynamic instability [ ]IV. Altered mental status [ ]V. Failure or unavailability of outpatient antimicrobial treatment [ ]. Hypoxemia [ ]VII. Seizures [ ]VIII. High-risk febrile neutropenia [ ]IX. Need for parenteral antibiotic in patient who is likely to abuse vascular access device (eg, injection drug user) [A](7) [ ]X. Temperature greater than 104.9 degrees F (40.5 degrees C) (oral) [ ]XI. Inpatient admission required rather than observation care because of ANY ONE of the following: [ ]1) Specific infection identified that is too severe for outpatient treatment or observation care trial [ ]2) Metabolic disorder (eg, hypoglycemia, hyperglycemia, metabolic acidosis) that is severe or persistent [ ]3) Temperature greater than 103.1 degrees F (39.5 degrees C) ( oral) that is not responsive to observation care treatment [ ]4) IV fluid to replace significant ongoing (eg, for over 24 hours) losses (> 3 L/m2 per day) [ ]5) Supplemental oxygen or respiratory treatments for over 24 hours that is performable only in acute inpatient setting [ ]6) Parenteral nutrition regimen need that must be implemented on inpatient basis [ ]7) Strict or protective (eg, laminar flow) isolation [ ]8) Other condition, treatment or monitoring requiring inpatient admission Extended stay beyond goal length of stay may be needed for(1)(3) [ ]a) Sepsis or septic shock(22) [ ]b) Positive blood cultures [ ]c) Insufficient oral intake [ ]d) High-risk febrile neutropenia(29)(30) [ ]e) Continued fever and clinical instability [ ]f) Clinically active comorbid illness (e.g,heart failure, renal failure , diabetes) The original [facility] [employer] content created by Keila Morris has been revised. The portions of the content which have been revised are identified through the use of italic text or in bold, and Keila Morris has neither reviewed nor approved the modified material. All other unmodified content is copyright [facility]. Please see references footnoted in the original [facility] edition 2016 Admission Criteria Met: Yes
--- NOTE | 2016-07-14 20:34 | Event Note ---
Date: 07/14/16 See H/p in reports Sepsis Hypotension ARF CKD HIV
[2016-07-14] MEDS ORDERED: MILK OF MAGNESIA PO PRN (20:37)
[2016-07-14] MEDS ORDERED: DULCOLAX PR PRN (20:37)
[2016-07-14] MEDS ORDERED: TYLENOL PO PRN (21:12)
[2016-07-14] MEDS ORDERED: ZOSYN/NS 2.25 GM/50ML 50 ML IV SCH (22:00)
[2016-07-14] MEDS ORDERED: VANCOMYCIN VIAL 1,000 MG in NACL 0.9% 250ML 250 ML IV SCH (22:00)
--- NOTE | 2016-07-15 06:20 | Progress Note ---
Subjective Date of service: 07/15/16 Objective - Vital Signs Vital signs: Vital Signs - 12hr 07/14/16 07/14/16 07/14/16 20:46 20:48 21:00 Temperature Pulse Rate 115 H 115 H 115 H Respiratory 27 H 25 H 29 H Rate Blood Pressure 101/58 101/58 98/48 O2 Sat by Pulse 97 97 Oximetry 07/14/16 07/14/16 07/14/16 21:16 21:30 21:46 Temperature Pulse Rate 113 H 112 H 112 H Respiratory 20 29 H 28 H Rate Blood Pressure 101/58 101/58 98/48 O2 Sat by Pulse 95 96 95 Oximetry 07/14/16 07/14/16 07/14/16 22:00 22:16 22:30 Temperature Pulse Rate 113 H 112 H 111 H Respiratory 30 H 29 H 19 Rate Blood Pressure 88/31 88/31 88/31 O2 Sat by Pulse 94 97 95 Oximetry 07/14/16 07/14/16 07/14/16 22:46 23:00 23:16 Temperature Pulse Rate 111 H 112 H 108 H Respiratory 32 H 19 28 H Rate Blood Pressure 88/31 97/51 97/51 O2 Sat by Pulse 96 95 Oximetry 07/14/16 07/14/16 07/15/16 23:30 23:45 00:00 Temperature 98.7 F Pulse Rate 107 H 103 H Respiratory 32 H 26 H Rate Blood Pressure 97/51 97/51 97/51 O2 Sat by Pulse 96 95 Oximetry 07/15/16 07/15/16 07/15/16 00:16 00:30 00:45 Temperature Pulse Rate 109 H 108 H Respiratory 19 13 Rate Blood Pressure 107/53 107/53 97/51 O2 Sat by Pulse 99 96 92 Oximetry 07/15/16 07/15/16 07/15/16 01:00 01:16 01:22 Temperature Pulse Rate 111 H 111 H 109 H Respiratory 24 25 H 24 Rate Blood Pressure 107/53 101/53 101/53 O2 Sat by Pulse 97 98 97 Oximetry 07/15/16 07/15/16 07/15/16 01:30 01:46 02:00 Temperature Pulse Rate 109 H 106 H 112 H Respiratory 24 21 23 Rate Blood Pressure 101/53 101/53 101/53 O2 Sat by Pulse 100 97 95 Oximetry 07/15/16 07/15/16 07/15/16 02:16 02:20 02:30 Temperature Pulse Rate 106 H 105 H 104 H Respiratory 27 H 24 21 Rate Blood Pressure 110/53 107/53 110/53 O2 Sat by Pulse 96 100 96 Oximetry 07/15/16 07/15/16 07/15/16 02:46 03:00 05:00 Temperature 98.5 F Pulse Rate 106 H 107 H Respiratory 13 29 H Rate Blood Pressure 110/53 109/49 O2 Sat by Pulse 90 93 Oximetry - Lab 07/14/16 14:33 07/14/16 17:01 Most recent lab results Calcium 7.6 mg/dL (8.4-10.2) L 07/14/16 17:01 Magnesium 2.2 mg/dL (1.7-2.3) 07/14/16 14:33
[2016-07-15] MEDS: DILAUDID IV PRN ×4 (07:57→21:49)
[2016-07-15] MEDS ORDERED: VANCOMYCIN VIAL 1,000 MG in NACL 0.9% 250ML 250 ML IV SCH (08:00)
--- NOTE | 2016-07-15 08:34 | History and Physical Report ---
CHIEF COMPLAINT: Chest pain. HISTORY OF PRESENT ILLNESS: A 31-year-old female with history of HIV, called in for chest pain. When the EMS arrived, the patient had a heart rate of approximately 170 to 180 and was in atrial fibrillation with rapid ventricular response. The patient had an Accu-Chek of more than 100. The patient was hypotensive. The patient was apparently to take for 5 days. The patient was quite lethargic and nonverbal. She was coughing, feeling sick for the last 5 days. Has history of HIV and did not taking any medications, following up for her HIV. Very poor historian. Chest pain is better in the ER, but the patient continues to cough and has a low blood pressure in the ER. PAST MEDICAL HISTORY: Diabetes, asthma, and HIV positive. SOCIAL HISTORY: Does not smoke. FAMILY HISTORY: Unknown. PAST SURGICAL HISTORY: None. CURRENT MEDICATIONS: None. REVIEW OF SYSTEMS: CONSTITUTIONAL: Has fever and chills. No weight loss. HEENT: No sore throat. No postnasal drip. CARDIOVASCULAR: Has chest pain and palpitations. No diaphoresis. RESPIRATORY: Cough present. Some wheezing present. Cough productive of mucoid to yellow sputum. GASTROINTESTINAL: No nausea, no vomiting, no diarrhea. GENITOURINARY: No dysuria, no flank pain. MUSCULOSKELETAL: No joint pains. CENTRAL NERVOUS SYSTEM: No syncope, no seizures. SKIN: No rashes. PSYCHIATRIC: No depression. No homicidal or suicidal thoughts. A 14-point review of systems done, other than fever, chills, and cough and feeling weak and chest pain, the review of systems is essentially negative. PHYSICAL EXAMINATION: GENERAL: Young female, cooperative during examination. VITAL SIGNS: Temperature 99.1, pulse is 170 it has come down to 111, 117. Blood pressure is 89/51, O2 sats are 99%, and respiratory rate is 20. HEENT: Slightly dry mucous membranes. NECK: Supple, no lymphadenopathy, no thyromegaly. LUNGS: Clear to auscultation and percussion. Good air entry. CARDIOVASCULAR: S1, S2 heard. No gallop, no murmur, no rub. Apical impulse in left fifth intercostal space and midclavicular line. ABDOMEN: Soft and benign. No hepatosplenomegaly. No guarding, no rigidity. Hernial orifices are normal. EXTREMITIES: Good pedal pulses. No pedal edema. CENTRAL NERVOUS SYSTEM: Alert, slightly altered sensorium present. SKIN: Normal. LABORATORY DATA: White count is 17,300, H and H is 9.2 and 28.0, platelet count is 373,000. ABG was done, pH was 7.34, pCO2 of 34, pO2 of 24, bicarbonate of 18. Sodium is 128, potassium is 4.5, BUN and creatinine is 99 and 7.0. Lactic acid is 2.0. Total bilirubin is 2.1. AST, ALT are normal. ProBNP is 3986. TSH is 1.06. Urine was negative 16 RBCs. Toxicology was negative. Chest x-ray was negative. EKG, cardioversion was spontaneous and then it showed normal sinus rhythm with normal axis with a heart rate of 100. Chest x-ray shows left lower lobe infiltrate. ASSESSMENT AND PLAN: 1. Sepsis secondary to possible left lower lobe infiltrate. The patient was started on IV Zosyn and IV vancomycin. 2. Left lower lobe pneumonia. IV Zosyn and IV vancomycin. ID consult requested. 3. Sepsis with hypotension. IV fluids for the time being because of the high creatinine. 4. Acute on chronic renal failure. The patient may end up needing emergent dialysis if creatinine does not improve. 5. Hypotension, as mentioned IV fluids. 6. Human-immunodeficiency virus status. The patient does not elaborate CD4 count, etc. We will have to order CD4 count. ID consultation requested for HIV treatment and also for sepsis. 7. Deep venous thrombosis prophylaxis, Lovenox 40 mg subcutaneous daily. The patient to be admitted to ICU because of sepsis, hypotension and acute renal failure. CRITICAL CARE STATEMENT: The high probability for a clinically significant sudden or life-threatening deterioration of the cardiovascular system, required my full and direct attention, intervention, and personal management. The aggregate critical care time was 40 minutes. At the time of examination, the time spent performing reported procedures, but include the following, 1. Data review and interoperation. 2. The patient assessment and monitoring of vital signs. 3. Documentation. 4. Medication orders and management. JOB# [id number] ARACELI/JOAQUIN
[2016-07-15 08:40] LABS: Bacteria,Urine 2+ /HPF (Negative); Bilirubin,Urine NEG (Negative); Blood,Urine LG (Negative); Ketones,Urine NEG (Negative); Leukocyte Esterase,Urine SM (Negative); Mucus,Urine FEW /HPF; Nitrite,Urine NEG (Negative)
[2016-07-15 08:44] LABS: Hematocrit 21.6 % (30.3-42.9); Hemoglobin 7.1 gm/dl (10.1-14.3); Mean Corpuscular HGB Conc 33 % (30-34); Mean Corpuscular Volume 77 fl (79-97); Platelet Count 323 K/mm3 (140-440); Red Blood Count 2.82 M/mm3 (3.65-5.03); Red Cell Distribution Width 14.4 % (13.2-15.2)
[2016-07-15 08:46] LABS: Mean Corpuscular Hemoglobin 25 pg (28-32)
--- NOTE | 2016-07-15 09:19 | XRay Report ---
Single view chest: History: Hypotension. Findings: Normal cardiomediastinal silhouette. Trachea is midline. Faint infiltrate left lower lobe. Normal CT angles. Impression: Faint infiltrate left lower lobe.
[2016-07-15 09:31] LABS: BUN/Creatinine Ratio 15.07; Calcium 7.8 mg/dL (8.4-10.2); Chloride 97.6 mmol/L (98-107); Potassium 4.1 mmol/L (3.6-5.0)
--- NOTE | 2016-07-15 09:36 | Consultation ---
History of Present Illness - Reason for Consult Consult date: 07/15/16 acute renal failure, metabolic acidosis - History of Present Illness Mrs. Carroll is a 31yo female with HIV who reports being in usual state of health until appx 1.5 week ago when she began having night sweats followed by nasuea/vomiting. She denies fevers. She reports inability to tolerate po intake since that time. Mrs. Carroll denies abdominal pain, constipation and diarrhea. She denies sick contacts. She also reports difficulty urinating over the past several days. She denies NSAIDs, hemoptysis, epistaxis and hematuria. She reports a family hx of kidney disease - mother, hx of DM, was on dialysis Past History Past Medical History: HIV/AIDS Past Surgical History: No surgical history Social history: no significant social history Family history: other (Mother with ESRD, DM - ) Medications and Allergies Allergies Allergy/AdvReac Type Severity Reaction Status Date / Time Penicillins Allergy Swelling Verified 07/14/16 15:15 Home Medications Medication Instructions Recorded Confirmed Last Taken Type No Known Home Medications [No 07/14/16 07/14/16 Unknown History Reported Home Medications] Active Meds: Active Medications Acetaminophen (Tylenol) 650 mg PO Q4H PRN PRN Reason: Pain MILD(1-3)/Fever >100.5/RODRIGUES Benzonatate (Tessalon Perles) 100 mg PO Q8HR PRN PRN Reason: cough Bisacodyl (Dulcolax) 10 mg [place] QDAY PRN PRN Reason: Constipation unrelieved by MOM Hydromorphone HCl (Dilaudid) 1 mg IV Q3H PRN PRN Reason: Pain , Severe (7-10) Last Admin: 07/15/16 07:57 Dose: 1 mg Sodium Bicarbonate 150 meq/ (Dextrose) 1,150 mls @ 75 mls/hr IV DIRECT DARYA Dextrose/Sodium Chloride (D5ns) 1,000 mls @ 125 mls/hr IV DIRECT DARYA Meropenem (Merrem/Ns 500 Mg/50 Ml) 50 mls @ 50 mls/hr IV Q6HR DARYA Vancomycin HCl 1,000 mg/ (Sodium Chloride) 250 mls @ 167 mls/hr IV Q24H DARYA PRN Reason: Protocol Magnesium Hydroxide (Milk Of Magnesia) 30 ml PO Q4H PRN PRN Reason: Constipation Ondansetron HCl (Zofran) 4 mg IV Q3H PRN PRN Reason: N/V unrelieved by Reglan Review of Systems Constitutional: sweats, anorexia, fatigue, weakness, poor appetite, no fever, no chills Ears, nose, mouth and throat: no epistaxis Breasts: deferred Cardiovascular: no chest pain, no orthopnea, no syncope, no shortness of breath , no dyspnea on exertion Respiratory: no cough, no hemoptysis, no shortness of breath, no dyspnea on exertion Gastrointestinal: nausea, vomiting, no abdominal pain, no diarrhea, no constipation, no BRBPR, no melena Genitourinary Female: difficulty voiding, no dysuria, no urinary frequency, no hematuria Integumentary: no rash Exam - Vital Signs Vital signs: Vital Signs Temp Pulse Resp BP Pulse Ox 99.1 F 179 H 20 85/50 99 07/14/16 14:06 07/14/16 14:06 07/14/16 14:06 07/14/16 14:06 07/14/16 14:06 - General Appearance General appearance: well-developed, well-nourished EENT: ATNC Respiratory: Decreased Breath Sounds Heart: tachycardia Gastrointestinal: Present: normal. Absent: tenderness, distended Integumentary: no rash Neurologic: no focal deficit, alert and oriented x3 Musculoskeletal: Present: other (no edema) Psychiatric: cooperative Results - Lab Results 07/16/16 06:00 07/16/16 06:00 Most recent lab results Calcium 7.8 mg/dL (8.4-10.2) L 07/15/16 Unknown Magnesium 2.2 mg/dL (1.7-2.3) 07/14/16 14:33 Assessment and Plan Impression: * Oliguric cute kidney injury secondary to ATN vs HIVAN * Sepsis * HIV * Metabolic acidosis Plan: * Patient w/ minimal UOP, worsening renal function and sx of uremia. Renal function unimproved with hydration. Will plan for hemodialysis today * Consult vascular surgery for vascath placement * Obtain serologic work up * Obtain urine studies * Await renal u/s * If renal function fails to recover, patient may require renal bx for diagnosis /prognosis
[2016-07-15] MEDS ORDERED: VANCOMYCIN/NS 1 GM/250 ML 250 ML IV ONE ×2 (09:51→14:09)
[2016-07-15 10:02] LABS: Basophils % (Manual) 0 % (0.0-1.8); Blastocytes % (Manual) 0 %; Eosinophils % (Manual) 0 % (0.0-4.3); Total Cells Counted Percent 0
[2016-07-15 10:03] LABS: Anisocytosis 1+; Dohle Bodies 1+; Hypochromasia 1+; Microcytosis 1+; Ovalocytes 1+; Poikilocytosis 1+
[2016-07-15 10:04] LABS: Burr Cells Few; Diff Status Complete; Target Cells Rare
[2016-07-15] MEDS ORDERED: NACL 0.9% 1000 ML 100 ML IV PRN (10:51)
--- NOTE | 2016-07-15 11:30 | Consultation ---
History of Present Illness - Reason for Consult Consult date: 07/15/16 Sepsis; HIV Requesting physician: MIKY ONOFRE - History of Present Illness Helga Carroll is a 31 y/o female with HIV infection, type 2 DM and asthma who was admitted to [facility] on 07/14 with a several day history of anterior chest pain, cough with occasional "greenish sputum production, subjective fevers and chills and was found to be hypotensive in the ED. She states that at first she though she had a "simple cold" but when the symptoms progressed she came to the ED and was referred to the hospitalist service and admitted. She has not had any shortness of breath or dyspnea on exertion. She also noted markedly decreased urine output. She has been HIV positive since 2011 and has been followed at the [facility]. She has been maintained on HAART with Truvada, Norvir & prezista which she states that she is compliant in taking. She says that she has been told that she is "undetectable" and her CD4 i s"good" but is unaware of the exact number. She has not had any HIV related complications or hospitalizations. No friends or family members have been ill except her 1 year old child has had a "mild cold." Review of systems General: see HPI HEENT: no odynophagia, no dysphagia, no oral lesions, no vision changes CV: no exertional chest pain, no palpitations Chest: see HPI. Pleuritic quality chest pain. GI: no abdominal pain, no N/V, no diarrhea : no change in urinary frequency, no dysuria, no hematuria Skin: no rashes; Ext: No muscle or joint pain, No edema Neuro: no headaches, no numbness/tingling, no tremors Endocrine: No history of diabetes. Psych: no anxiety, no depression Infectious diseases: + HIV as per HPI. Past History Past Medical History: HIV/AIDS Medications and Allergies Allergies Allergy/AdvReac Type Severity Reaction Status Date / Time Penicillins Allergy Swelling Verified 07/14/16 15:15 Home Medications Medication Instructions Recorded Confirmed Last Taken Type No Known Home Medications [No 07/14/16 07/14/16 Unknown History Reported Home Medications] Active Meds: Active Medications Acetaminophen (Tylenol) 650 mg PO Q4H PRN PRN Reason: Pain MILD(1-3)/Fever >100.5/RODRIGUES Benzonatate (Tessalon Perles) 100 mg PO Q8HR PRN PRN Reason: cough Bisacodyl (Dulcolax) 10 mg [place] QDAY PRN PRN Reason: Constipation unrelieved by MOM Hydromorphone HCl (Dilaudid) 1 mg IV Q3H PRN PRN Reason: Pain , Severe (7-10) Last Admin: 07/15/16 07:57 Dose: 1 mg Sodium Bicarbonate 150 meq/ (Dextrose) 1,150 mls @ 75 mls/hr IV DIRECT DARYA Dextrose/Sodium Chloride (D5ns) 1,000 mls @ 125 mls/hr IV DIRECT DARYA Sodium Chloride (Nacl 0.9% 1000 Ml) 100 mls @ 999 mls/hr IV BORIS PRN PRN Reason: Hypotension Meropenem 500 mg/ Sodium (Chloride) 100 mls @ 100 mls/hr IV Q24HR DARYA Magnesium Hydroxide (Milk Of Magnesia) 30 ml PO Q4H PRN PRN Reason: Constipation Ondansetron HCl (Zofran) 4 mg IV Q3H PRN PRN Reason: N/V unrelieved by Reglan Vancomycin HCl (Vancomycin Pharmacy To Dose) 1 each IV PKCONSULT DARYA Physical Examination - Physical Exam Narrative exam: GENERAL: Well-developed, well-nourished appearing female who is alert and in no acute distress. She only appears mildly ill. HEAD: Normocephalic. No lesions seen. EYES: Pupils are equal reactive to light and accommodation. There is no scleral icterus. Optic fundi are normal. EARS: Tympanic membranes are normal. THROAT: Oropharynx is normal with no evidence of oral candidiasis or pharyngitis. Mildly dry mucus membranes. NECK: Supple. No enlargement of the thyroid gland. No significant cervical lymphadenopathy. No jugular venous distention at 30. LUNGS: Clear with no adventitious sounds. CHEST: Mild tenderness over the anterior chest with no other onjective findings. HEART: Regular rate. S1 and S2 are normal. There are no murmurs, gallops, clicks or rubs heard. ABDOMEN: Soft, mildly distended and nontender. Liver and spleen are not palpably enlarged or tender. No palpable masses. Bowel sounds are normoactive. EXTREMITIES: No peripheral lymphadenopathy, clubbing or edema. SKIN: Multiple tattoos; no rash : Not examined NEUROLOGIC: No focal findings. - Constitutional Vitals: Vital Signs Temp Pulse Resp BP Pulse Ox 98.5 F 99 H 22 100/59 93 07/15/16 05:00 07/15/16 11:00 07/15/16 11:00 07/15/16 11:00 07/15/16 11:00 Temperature -Last 24 Hours Temperature 98.5 F Temperature 98.7 F Results - Labs CBC & Chem 7: 07/15/16 Unknown 07/15/16 Unknown Labs: Abnormal lab results Laboratory Tests 07/14/16 07/14/16 07/14/16 14:33 14:33 Unknown BUN 99 H Creatinine 7.0 H Total Bilirubin 2.1 H Direct Bilirubin 1.5 H Alkaline Phosphatase 166 H Albumin 2.3 L Urine WBC (Auto) 5.0 Urine RBC (Auto) 16.0 Laboratory Tests 07/14/16 07/14/16 14:33 17:01 Lactic Acid 2.0 1.6 Microbiology 07/14/16 14:20 Urine,Catheterized - Straight Catheter Urine Culture - Preliminary NO GROWTH AFTER 24 HOURS 07/14/16 14:33 Peripheral/Venous Blood Culture - Preliminary Culture in Progress 07/14/16 14:33 Peripheral/Venous Blood Culture - Preliminary Culture in Progress Imagin/22: CXR: Faint left lower lobe infiltrate Assessment and Plan Current antibiotics: Meropenem 1 g IV q24h 07/14 --> Vancomycin (pulse dose) IV 07/14 --> Previous antibiotics: Clindamycin 600 mg IV X 1 07/14 ASSESSMENT: Helga Carroll is a 31 y/o female with HIV infection, type 2 DM and asthma who was admitted to [facility] on 07/14 with a several day history of anterior chest pain, cough with occasional "greenish sputum production, subjective fevers and chills and was found to be hypotensive in the ED. She was also found to have MARY. Problem list: 1. Sepsis syndrome -History of fever, MARY, cough and malaise -Rule out viral illness including acute Influenza -Rule out pneumonia although CXR is not impressive to my review -Rule bacteremia -Doubt HIV related OI with her CD4 reportedly "good." 2. HIV infection -ARV therapy: Truvada, Norvir & darunavir -CD4 and VL unclear although reportedly "good." 3. MARY -? secondary to #1 4. Leukocytosis -Secondary to #1 5. Penicillin allergy -"Tongue swells up" 6. Anemia Plan: 1. Will continue empiric vancomycin and meropenem pending culture data 2. Continue Truvada and darunavir/Norvir 3. Will track down information from the [facility] 4. Continued supportive measures as are being done Thank you for this consultation. We will follow with you. Mark Sanchez MD [facility] Office: [phone]
[2016-07-15] MEDS ORDERED: VANCOMYCIN PHARMACY TO DOSE IV SCH (12:00)
[2016-07-15] MEDS ORDERED: MERREM/NS 500 MG/50 ML 50 ML IV SCH (12:00)
[2016-07-15] MEDS ORDERED: HEPARIN/NS 5000 UNIT/500ML(CATH LAB) 500 ML IR ONE (14:09)
[2016-07-15] MEDS: XYLOCAINE 1%/ EPI 1:100,000 INFILTRATI ONE ×2 (14:46→14:49)
[2016-07-15] MEDS: SUBLIMAZE ONE ×2 (14:46→14:50)
--- NOTE | 2016-07-15 14:56 | Progress Note ---
Assessment and Plan Assessment and plan: --Septic shock Continue Levophed, titrate systolic blood pressures to more than 100 Follow cultures and supportive care empiric antibiotics, vancomycin and meropenem ID following, Admit to ICU for close observation --Possible pneumonia left lower lobe Continue current antibiotics follow cultures --Acute and chronic renal failure; nephrology following hemodialysis per schedule --History of HIV AIDS on antiretrovirals, we will hold HIV medications as patient has sepsis, Acute renal failure, --Chronic anemia closely monitor transfuse as needed Iron supplements --DVT prophylaxis with Lovenox Consults noted and appreciated Closely monitor the patient and adjust management as needed Plan of care discussed with the patient as well as her Critical care time 31 minutes The high probability of a clinically significant, sudden or life threatening deterioration of the [pulmonology , infectious diseases , and renal] system(s) required my full and direct attention, intervention and personal management. The aggregate critical care time was [31] minutes. This time is in addition to time spent performing reported procedures but includes the following: [x] Data Review and interpretation [x] Patient assessment and monitoring of vital signs [x] Documentation [x] Medication orders and management History Interval history: Patient seen and evaluated in ER awaiting her room assignment Medical records reviewed, patient was admitted with sepsis and shortness of breath and chest pain Noted to be hypotensive on pressors Patient feels slightly better denies any chest pain or shortness of breath, complains of generalized weakness Mild nausea no vomiting Alert awake oriented 3 not in acute distress Hospitalist Physical - Constitutional Vitals: Temp Pulse Resp BP Pulse Ox 98.6 F 82 18 92/60 98 07/15/16 12:15 07/15/16 13:00 07/15/16 13:00 07/15/16 12:00 07/15/16 12:15 General appearance: Present: mild distress, well-nourished - EENT Eyes: Present: PERRL, EOM intact - Neck Neck: Present: supple, normal ROM - Respiratory Respiratory effort: normal Respiratory: bilateral: diminished, negative: rales, rhonchi, wheezing - Cardiovascular Rhythm: regular Heart Sounds: Present: S1 & S2 - Extremities Extremities: no ischemia, pulses intact, pulses symmetrical Peripheral Pulses: within normal limits - Abdominal General gastrointestinal: soft, non-tender, non-distended, normal bowel sounds - Integumentary Integumentary: Present: clear, warm - Psychiatric Psychiatric: appropriate mood/affect, cooperative - Neurologic Neurologic: CNII-XII intact, moves all extremities Results - Labs CBC & Chem 7: 07/15/16 Unknown 07/15/16 Unknown Labs: Laboratory Last Values WBC 19.0 K/mm3 (4.5-11.0) H 07/15/16 Unknown RBC 2.82 M/mm3 (3.65-5.03) L 07/15/16 Unknown Hgb 7.1 gm/dl (10.1-14.3) L 07/15/16 Unknown Hct 21.6 % (30.3-42.9) L D 07/15/16 Unknown MCV 77 fl (79-97) L D 07/15/16 Unknown MCH 25 pg (28-32) L 07/15/16 Unknown MCHC 33 % (30-34) 07/15/16 Unknown RDW 14.4 % (13.2-15.2) 07/15/16 Unknown Plt Count 323 K/mm3 (140-440) 07/15/16 Unknown Lymph % (Auto) Refrigeration Operator 07/15/16 Unknown [place] % (Auto) Refrigeration Operator 07/15/16 Unknown Eos % (Auto) Refrigeration Operator 07/15/16 Unknown Baso % (Auto) Refrigeration Operator 07/15/16 Unknown Lymph # Refrigeration Operator 07/15/16 Unknown [place] # Refrigeration Operator 07/15/16 Unknown Eos # Refrigeration Operator 07/15/16 Unknown Baso # Refrigeration Operator 07/15/16 Unknown Add Manual Diff Complete 07/15/16 Unknown Total Counted 100 07/15/16 Unknown Seg Neutrophils % Refrigeration Operator 07/15/16 Unknown Seg Neuts % (Manual) 81.0 % (40.0-70.0) H 07/15/16 Unknown Band Neutrophils % 14.0 % 07/15/16 Unknown Lymphocytes % (Manual) 5.0 % (13.4-35.0) L 07/15/16 Unknown Reactive Lymphs % (Man) 0 % 07/15/16 Unknown Monocytes % (Manual) 0 % (0.0-7.3) 07/15/16 Unknown Eosinophils % (Manual) 0 % (0.0-4.3) 07/15/16 Unknown Basophils % (Manual) 0 % (0.0-1.8) 07/15/16 Unknown Metamyelocytes % 0 % 07/15/16 Unknown Myelocytes % 0 % 07/15/16 Unknown Promyelocytes % 0 % 07/15/16 Unknown Blast Cells % 0 % 07/15/16 Unknown Nucleated RBC % Not Reportable 07/15/16 Unknown Seg Neutrophils # Refrigeration Operator 07/15/16 Unknown Seg Neutrophils # Man 15.4 K/mm3 (1.8-7.7) H 07/15/16 Unknown Band Neutrophils # 2.7 K/mm3 07/15/16 Unknown Lymphocytes # (Manual) 1.0 K/mm3 (1.2-5.4) L 07/15/16 Unknown Abs React Lymphs (Man) 0.0 K/mm3 07/15/16 Unknown Monocytes # (Manual) 0.0 K/mm3 (0.0-0.8) 07/15/16 Unknown Eosinophils # (Manual) 0.0 K/mm3 (0.0-0.4) 07/15/16 Unknown Basophils # (Manual) 0.0 K/mm3 (0.0-0.1) 07/15/16 Unknown Metamyelocytes # 0.0 K/mm3 07/15/16 Unknown Myelocytes # 0.0 K/mm3 07/15/16 Unknown Promyelocytes # 0.0 K/mm3 07/15/16 Unknown Blast Cells # 0.0 K/mm3 07/15/16 Unknown WBC Morphology Not Reportable 07/15/16 Unknown Hypersegmented Neuts Not Reportable 07/15/16 Unknown Hyposegmented Neuts Not Reportable 07/15/16 Unknown Hypogranular Neuts Not Reportable 07/15/16 Unknown Smudge Cells Not Reportable 07/15/16 Unknown Toxic Granulation Not Reportable 07/15/16 Unknown Toxic Vacuolation Not Reportable 07/15/16 Unknown Dohle Bodies 1+ 07/15/16 Unknown Pelger-Huet Anomaly Not Reportable 07/15/16 Unknown Rishabh Rods Not Reportable 07/15/16 Unknown Platelet Estimate Appears normal 07/15/16 Unknown Clumped Platelets Not Reportable 07/15/16 Unknown Plt Clumps, EDTA Not Reportable 07/15/16 Unknown Large Platelets Not Reportable 07/15/16 Unknown Giant Platelets Not Reportable 07/15/16 Unknown Platelet Satelliting Not Reportable 07/15/16 Unknown Plt Morphology Comment Not Reportable 07/15/16 Unknown RBC Morphology Not Reportable 07/15/16 Unknown Dimorphic RBCs Not Reportable 07/15/16 Unknown Polychromasia Not Reportable 07/15/16 Unknown Hypochromasia 1+ 07/15/16 Unknown Poikilocytosis 1+ 07/15/16 Unknown Anisocytosis 1+ 07/15/16 Unknown Microcytosis 1+ 07/15/16 Unknown Macrocytosis Not Reportable 07/15/16 Unknown Spherocytes Not Reportable 07/15/16 Unknown Pappenheimer Bodies Not Reportable 07/15/16 Unknown Sickle Cells Not Reportable 07/15/16 Unknown Target Cells Rare 07/15/16 Unknown Tear Drop Cells Not Reportable 07/15/16 Unknown Ovalocytes 1+ 07/15/16 Unknown Helmet Cells Not Reportable 07/15/16 Unknown Hanna-Lyle Bodies Not Reportable 07/15/16 Unknown [place] Rings Not Reportable 07/15/16 Unknown Augusto Cells Few 07/15/16 Unknown Bite Cells Not Reportable 07/15/16 Unknown Crenated Cell Not Reportable 07/15/16 Unknown Elliptocytes Not Reportable 07/15/16 Unknown Acanthocytes (Spur) Not Reportable 07/15/16 Unknown Rouleaux Not Reportable 07/15/16 Unknown Hemoglobin C Crystals Not Reportable 07/15/16 Unknown Schistocytes Not Reportable 07/15/16 Unknown Malaria parasites Not Reportable 07/15/16 Unknown Stephen Bodies Not Reportable 07/15/16 Unknown Hem Pathologist Commnt No 07/15/16 Unknown PT 15.3 Sec. (12.2-14.9) H 07/14/16 14:33 INR 1.22 (0.87-1.13) H 07/14/16 14:33 APTT 30.8 Sec. (24.2-36.6) 07/14/16 14:33 POC ABG pH 7.345 (7.35-7.45) L 07/14/16 14:42 POC ABG pCO2 34.2 (35-45) L 07/14/16 14:42 POC ABG pO2 24 (80-105) L 07/14/16 14:42 POC ABG HCO3 18.6 07/14/16 14:42 POC ABG Total CO2 20 07/14/16 14:42 POC ABG O2 Sat 39 07/14/16 14:42 POC ABG Base Excess -7 07/14/16 14:42 FiO2 28 % 07/14/16 14:42 Sodium 134 mmol/L (137-145) L 07/15/16 Unknown Potassium 4.1 mmol/L (3.6-5.0) 07/15/16 Unknown Chloride 97.6 mmol/L (98-107) L 07/15/16 Unknown Carbon Dioxide 22 mmol/L (22-30) 07/15/16 Unknown Anion Gap 19 mmol/L 07/15/16 Unknown BUN 104 mg/dL (7-17) H 07/15/16 Unknown Creatinine 6.9 mg/dL (0.7-1.2) H 07/15/16 Unknown Estimated GFR 8 ml/min 07/15/16 Unknown BUN/Creatinine Ratio 15.07 % 07/15/16 Unknown Glucose 99 mg/dL (65-100) 07/15/16 Unknown Lactic Acid 1.6 mmol/L (0.7-2.0) 07/14/16 17:01 Calcium 7.8 mg/dL (8.4-10.2) L 07/15/16 Unknown Magnesium 2.2 mg/dL (1.7-2.3) 07/14/16 14:33 Total Bilirubin 2.1 mg/dL (0.1-1.2) H 07/14/16 14:33 Direct Bilirubin 1.5 mg/dL (0-0.2) H 07/14/16 14:33 Indirect Bilirubin 0.6 mg/dL 07/14/16 14:33 AST 32 units/L (5-40) 07/14/16 14:33 ALT 26 units/L (7-56) 07/14/16 14:33 Alkaline Phosphatase 166 units/L (35-129) H 07/14/16 14:33 Troponin T < 0.010 ng/mL (0.00-0.029) 07/14/16 14:33 NT-Pro-B Natriuret Pep 3986 pg/mL (0-450) H 07/14/16 14:33 Total Protein 8.6 g/dL (6.3-8.2) H 07/14/16 14:33 Albumin 2.3 g/dL (3.9-5) L 07/14/16 14:33 Albumin/Globulin Ratio 0.4 % 07/14/16 14:33 TSH 1.060 mlU/mL (0.270-4.200) 07/14/16 14:33 Free T4 1.21 ng/dL (0.76-1.46) 07/14/16 14:33 Urine Color Jen (Yellow) 07/15/16 07:11 Urine Turbidity Cloudy (Clear) 07/15/16 07:11 Urine pH 5.0 (5.0-7.0) 07/15/16 07:11 Ur Specific [place] 1.016 (1.003-1.030) 07/15/16 07:11 Urine Protein 30 mg/dl mg/dL (Negative) 07/15/16 07:11 Urine Glucose (UA) Neg mg/dL (Negative) 07/15/16 07:11 Urine Ketones Neg mg/dL (Negative) 07/15/16 07:11 Urine Blood Lg (Negative) 07/15/16 07:11 Urine Nitrite Neg (Negative) 07/15/16 07:11 Urine Bilirubin Neg (Negative) 07/15/16 07:11 Urine Ictotest Negative (Negative) 07/14/16 Unknown Urine Urobilinogen 4.0 mg/dL (<2.0) 07/15/16 07:11 Ur Leukocyte Esterase Sm (Negative) 07/15/16 07:11 Urine WBC (Auto) 15.0 /HPF (0.0-6.0) H 07/15/16 07:11 Urine RBC (Auto) 115.0 /HPF (0.0-6.0) 07/15/16 07:11 U Epithel Cells (Auto) < 1.0 /HPF (0-13.0) 07/15/16 07:11 Urine Bacteria (Auto) 2+ /HPF (Negative) 07/15/16 07:11 Urine WBC Clumps 3+ /HPF 07/14/16 Unknown Hyaline Casts 3 /LPF 07/15/16 07:11 Urine Mucus Few /HPF 07/15/16 07:11 Urine Eosinophils None seen (None Seen) 07/15/16 07:11 Urine Creatinine 143.6 mg/dL (0.1-20.0) H 07/15/16 07:11 Protein/Creatinin Ratio 1.16 07/15/16 07:11 Urine Sodium 45 mEq/L 07/15/16 07:11 Urine Total Protein 166 mg/dL (5-11.8) H 07/15/16 07:11 Urine HCG, Qual Negative (Negative) 07/14/16 Unknown Urine Opiates Screen Presumptive negative 07/14/16 Unknown Urine Methadone Screen Presumptive negative 07/14/16 Unknown Ur Barbiturates Screen Presumptive negative 07/14/16 Unknown Ur Phencyclidine Scrn Presumptive negative 07/14/16 Unknown Ur Amphetamines Screen Presumptive negative 07/14/16 Unknown U Benzodiazepines Scrn Presumptive negative 07/14/16 Unknown Urine Cocaine Screen Presumptive negative 07/14/16 Unknown U Marijuana (THC) Screen Presumptive negative 07/14/16 Unknown Drugs of Abuse Note Disclamer 07/14/16 Unknown Hepatitis A IgM Ab -1 (NonReactive) 07/15/16 Unknown Hep Bs Antigen Non-reactive (Negative) 07/15/16 Unknown Hep B Core IgM Ab Non-reactive (NonReactive) 07/15/16 Unknown Hepatitis C Antibody Non-reactive (NonReactive) 07/15/16 Unknown Blood Type B POSITIVE 07/14/16 16:00 Antibody Screen Negative 07/14/16 16:00
[2016-07-15] MEDS: HEPARIN 10,000 UNITS/10 ML ONE ×2 (15:01→15:02)
--- NOTE | 2016-07-15 15:09 | Operative Report ---
Operative Report Operative Report: EXAM: ULTRASOUND AND FLUOROSCOPIC GUIDED PLACEMENT OF VAS-CATH CLINICAL INDICATION: PATIENT WITH END-STAGE RENAL DISEASE REQUIRING EMERGENT DIALYSIS ACCESS DATE: 07/15/2016 PROCEDURE: Following an explanation of the risks, benefits and alternatives; written informed consent was obtained. The patient was brought to the angiographic suite and placed in supine position on the examination table. Initial ultrasound survey of the right neck demonstrated a patent right internal jugular vein. The right neck was prepped and draped in the usual sterile fashion. 1% lidocaine was used for anesthesia. Under ultrasound guidance, the right internal jugular vein was cannulated with a 7 cm 18-gauge needle. A 0.035 guidewire was advanced centrally under fluoroscopy. The guidewire was advanced into the IVC under fluoroscopy to document intravenous positioning. The needle was removed and following serial dilation, a 16 cm 11.5 [place] precursor Vas-Cath was placed over the guidewire and positioned with the tip in the proximal right atrium. The guidewire was removed. Both ports flushed and aspirated easily and were then locked with appropriate volumes of heparin. The catheter was securely fastened of the skin surface using 2-0 silk suture and a sterile dressing applied. The patient tolerated the procedure well. There were no immediate post procedure complications. The patient received fentanyl for analgesia. No sedation was utilized secondary to patient's non-nothing by mouth status. Continuous cardiopulmonary monitoring was utilized. IMPRESSION: 1) Utrasound and fluoroscopic guided placement of Vas-Cath via the right internal jugular vein
[2016-07-15] MEDS: HEPARIN IV PRN (20:38)
[2016-07-15] MEDS: TESSALON PERLES PO PRN (21:59)
[2016-07-15] MEDS: ZOFRAN IV PRN (21:59)
[2016-07-15] MEDS ORDERED: SODIUM BICARBONATE 150 MEQ in D5W 1,000 ML IV SCH (23:00)
[2016-07-16] MEDS: DILAUDID IV PRN ×5 (02:21→23:21)
[2016-07-16] MEDS: ZOFRAN IV PRN ×3 (02:22→23:22)
[2016-07-16] MEDS ORDERED: DILAUDID IV ONE (05:30)
[2016-07-16 06:27] LABS: Hematocrit 21.3 % (30.3-42.9); Hemoglobin 7.1 gm/dl (10.1-14.3); Mean Corpuscular HGB Conc 33 % (30-34); Mean Corpuscular Volume 78 fl (79-97); Platelet Count 285 K/mm3 (140-440); Red Blood Count 2.74 M/mm3 (3.65-5.03); Red Cell Distribution Width 14.5 % (13.2-15.2); White Blood Count 15.6 K/mm3 (4.5-11.0)
[2016-07-16 06:28] LABS: Mean Corpuscular Hemoglobin 26 pg (28-32)
[2016-07-16 06:43] LABS: BUN/Creatinine Ratio 13.72
[2016-07-16 06:44] LABS: Chloride 95.8 mmol/L (98-107); Potassium 3.6 mmol/L (3.6-5.0)
--- NOTE | 2016-07-16 07:24 | Ultrasound Report ---
ULTRASOUND RENAL BILATERAL HISTORY: Acute renal insufficiency. TECHNIQUE: transabdominal ultrasound with color Doppler interrogation. FINDINGS: The right kidney measures 14.6 x 5.5 x 7.1cm. Right renal cortex: 1.6cm. The left kidney measures 15.3 x 5.9 x 5.8cm. Left renal cortex: 1.9cm. The kidneys are normal size and contour. The kidneys may be slightly enlarged. There is no evidence for cystic disease, mass, shadowing calculus, hydronephrosis or perinephric fluid. Renal parenchymal echotexture is slightly increased. The bladder is decompressed with a Santiago catheter. IMPRESSION: Normal size but slightly echogenic kidneys suggesting medical renal disease or acute renal failure. No focal renal lesion or hydronephrosis.
[2016-07-16 07:55] LABS: Basophils % (Manual) 0 % (0.0-1.8); Blastocytes % (Manual) 0 %; Eosinophils % (Manual) 0 % (0.0-4.3)
[2016-07-16 07:56] LABS: Anisocytosis 1+; Burr Cells 1+; Large Platelets Few; Microcytosis 1+; Target Cells Rare
[2016-07-16 07:57] LABS: Diff Status Complete; Giant Platelets Rare; Helmet Cells Rare; Ovalocytes 1+; Tear Drop Cells Rare
--- NOTE | 2016-07-16 08:57 | Consultation ---
History of Present Illness Consult date: 07/16/16 Reason for consult: pneumonia, other (Acute renal failure, HIV) History of present illness: 31y/o AAF, HIV positive, who was admitted to the ED with Hx/o SOB. Reportedly found with A.fib on EMS evaluation, rushed to the ED. Initial evaluation there, showed evidence of renal failure and CXR with possible LLL pneumonia. Poor historian, looks detached , apathic during the interview. States that she is taking her HIV meds, but reportedly not on Tx on ED interview. Though she " had the flu" last week. No history of flu vaccination. She follow-up for her HIV disease apparently in [place]. Past History Past Medical History: HIV/AIDS Social history: smoking Medications and Allergies Allergies Allergy/AdvReac Type Severity Reaction Status Date / Time Penicillins Allergy Swelling Verified 07/14/16 15:15 Home Medications Medication Instructions Recorded Confirmed Last Taken Type No Known Home Medications [No 07/14/16 07/14/16 Unknown History Reported Home Medications] Active Meds: Active Medications Acetaminophen (Tylenol) 650 mg PO Q4H PRN PRN Reason: Pain MILD(1-3)/Fever >100.5/RODRIGUES Benzonatate (Tessalon Perles) 100 mg PO Q8HR PRN PRN Reason: cough Last Admin: 07/15/16 21:59 Dose: 100 mg Bisacodyl (Dulcolax) 10 mg CA QDAY PRN PRN Reason: Constipation unrelieved by MOM Heparin Sodium (Porcine) (Heparin) 5,000 unit IV BORIS PRN PRN Reason: hemodialysis Last Admin: 07/15/16 20:38 Dose: 5,000 unit Hydromorphone HCl (Dilaudid) 1 mg IV Q3H PRN PRN Reason: Pain , Severe (7-10) Last Admin: 07/16/16 05:44 Dose: 1 mg Sodium Bicarbonate 150 meq/ (Dextrose) 1,150 mls @ 75 mls/hr IV DIRECT DARYA Last Admin: 07/16/16 02:23 Dose: 75 mls/hr Dextrose/Sodium Chloride (D5ns) 1,000 mls @ 125 mls/hr IV DIRECT DARYA Sodium Chloride (Nacl 0.9% 1000 Ml) 100 mls @ 999 mls/hr IV BORIS PRN PRN Reason: Hypotension Meropenem 500 mg/ Sodium (Chloride) 100 mls @ 100 mls/hr IV Q24HR DARYA Magnesium Hydroxide (Milk Of Magnesia) 30 ml PO Q4H PRN PRN Reason: Constipation Ondansetron HCl (Zofran) 4 mg IV Q3H PRN PRN Reason: N/V unrelieved by Brennon Last Admin: 07/16/16 05:46 Dose: 4 mg Vancomycin HCl (Vancomycin Pharmacy To Dose) 1 each IV PKCONSULT DARYA Review of Systems Constitutional: weight gain, anorexia, fatigue, weakness, malaise Physical Examination Vital signs: Vital Signs Temp Pulse Resp BP Pulse Ox 99.1 F 179 H 20 85/50 99 07/14/16 14:06 07/14/16 14:06 07/14/16 14:06 07/14/16 14:06 07/14/16 14:06 General appearance: no acute distress, alert Eyes: non-icteric ENT: oropharynx moist Ascultation: Bilateral: rales (bases posteriorly) Cardiovascular: regular rate and rhythm, other (tachycardic) Results - Laboratory Findings CBC and BMP: 07/17/16 06:10 07/17/16 06:10 ABG POC ABG pH 7.345 (7.35-7.45) L 07/14/16 14:42 POC ABG pCO2 34.2 (35-45) L 07/14/16 14:42 POC ABG pO2 24 (80-105) L 07/14/16 14:42 POC ABG HCO3 18.6 07/14/16 14:42 POC ABG Total CO2 20 07/14/16 14:42 POC ABG O2 Sat 39 07/14/16 14:42 PT/INR, D-dimer PT 15.3 Sec. (12.2-14.9) H 07/14/16 14:33 INR 1.22 (0.87-1.13) H 07/14/16 14:33 Abnormal lab findings: Abnormal Labs 07/15/16 07/15/16 07/15/16 07:11 07:11 21:32 WBC RBC Hgb Hct MCV MCH Seg Neuts % (Manual) Lymphocytes % (Manual) Seg Neutrophils # Man Lymphocytes # (Manual) Sodium Chloride BUN Creatinine Glucose POC Glucose 140 H Calcium Urine WBC (Auto) 15.0 H Urine Creatinine 143.6 H Urine Total Protein 166 H 07/15/16 07/15/16 07/16/16 Unknown Unknown 06:00 WBC 19.0 H 15.6 H RBC 2.82 L 2.74 L Hgb 7.1 L 7.1 L Hct 21.6 L D 21.3 L MCV 77 L D 78 L MCH 25 L 26 L Seg Neuts % (Manual) 81.0 H 90.0 H Lymphocytes % (Manual) 5.0 L 4.0 L Seg Neutrophils # Man 15.4 H 14.0 H Lymphocytes # (Manual) 1.0 L 0.6 L Sodium 134 L Chloride 97.6 L BUN 104 H Creatinine 6.9 H Glucose POC Glucose Calcium 7.8 L Urine WBC (Auto) Urine Creatinine Urine Total Protein 07/16/16 06:00 WBC RBC Hgb Hct MCV MCH Seg Neuts % (Manual) Lymphocytes % (Manual) Seg Neutrophils # Man Lymphocytes # (Manual) Sodium 135 L Chloride 95.8 L BUN 70 H Creatinine 5.1 H Glucose 122 H POC Glucose Calcium 8.0 L Urine WBC (Auto) Urine Creatinine Urine Total Protein - Diagnostic Findings Chest x-ray: report reviewed, image reviewed Assessment and Plan A fib FVR episode Pneumonia ESRD HIV Rec Continue ABX Possible ESRD evaluation per nephrology Monitor BP Continue O2 support CCT 40 min
--- NOTE | 2016-07-16 09:09 | Progress Note ---
Assessment and Plan Assessment and plan: --Septic shock/ Significantly improved, patient's blood pressures are reasonable Discontinue Levophed, gentle hydration --gram-negative bacteremia ID following, continue meropenem and vancomycin Follow Repeat cultures --Possible small left lower lobe pneumonia Continue current antibiotics follow cultures --Acute and chronic renal failure; nephrology following hemodialysis per schedule --History of HIV AIDS on antiretrovirals, we will hold HIV medications as patient has sepsis, Acute renal failure, --Chronic anemia closely monitor transfuse as needed Iron supplements --DVT prophylaxis with Lovenox Consults noted and appreciated Closely monitor the patient and adjust management as needed Plan of care discussed with the patient as well as her Patient can be transferred out of ICU to medical floor today. Critical care time 31 minutes The high probability of a clinically significant, sudden or life threatening deterioration of the [pulmonology , infectious diseases , and renal] system(s) required my full and direct attention, intervention and personal management. The aggregate critical care time was [31] minutes. This time is in addition to time spent performing reported procedures but includes the following: [x] Data Review and interpretation [x] Patient assessment and monitoring of vital signs [x] Documentation [x] Medication orders and management History Interval history: Reason seen and evaluated in ICU this morning medical records reviewed Patient feels slightly better received hemodialysis yesterday, scheduled for dialysis today Off pressors, blood pressures are reasonable level denies nausea vomiting or abdominal pain Alert awake oriented 3 not in acute distress Vital signs reviewed Hospitalist Physical - Constitutional Vitals: Temp Pulse Resp BP Pulse Ox 97.9 F 94 H 16 108/65 91 07/16/16 08:00 07/16/16 08:00 07/16/16 08:00 07/16/16 08:00 07/16/16 08:00 General appearance: Present: no acute distress, well-nourished - EENT Eyes: Present: PERRL, EOM intact - Neck Neck: Present: supple, normal ROM - Respiratory Respiratory effort: normal Respiratory: bilateral: diminished, rales, negative: rhonchi, wheezing - Cardiovascular Rhythm: regular Heart Sounds: Present: S1 & S2 - Extremities Extremities: no ischemia, pulses intact, pulses symmetrical Peripheral Pulses: within normal limits - Abdominal General gastrointestinal: soft, non-tender, non-distended, normal bowel sounds - Integumentary Integumentary: Present: clear, warm - Psychiatric Psychiatric: appropriate mood/affect, cooperative - Neurologic Neurologic: CNII-XII intact, moves all extremities Results - Labs CBC & Chem 7: 07/16/16 06:00 07/16/16 06:00 Labs: Laboratory Last Values WBC 15.6 K/mm3 (4.5-11.0) H 07/16/16 06:00 RBC 2.74 M/mm3 (3.65-5.03) L 07/16/16 06:00 Hgb 7.1 gm/dl (10.1-14.3) L 07/16/16 06:00 Hct 21.3 % (30.3-42.9) L 07/16/16 06:00 MCV 78 fl (79-97) L 07/16/16 06:00 MCH 26 pg (28-32) L 07/16/16 06:00 MCHC 33 % (30-34) 07/16/16 06:00 RDW 14.5 % (13.2-15.2) 07/16/16 06:00 Plt Count 285 K/mm3 (140-440) 07/16/16 06:00 Lymph % (Auto) Microwave Technician 07/15/16 Unknown [place] % (Auto) Microwave Technician 07/15/16 Unknown Eos % (Auto) Microwave Technician 07/15/16 Unknown Baso % (Auto) Microwave Technician 07/15/16 Unknown Lymph # Microwave Technician 07/15/16 Unknown [place] # Microwave Technician 07/15/16 Unknown Eos # Microwave Technician 07/15/16 Unknown Baso # Microwave Technician 07/15/16 Unknown Add Manual Diff Complete 07/16/16 06:00 Total Counted 100 07/16/16 06:00 Seg Neutrophils % Microwave Technician 07/15/16 Unknown Seg Neuts % (Manual) 90.0 % (40.0-70.0) H 07/16/16 06:00 Band Neutrophils % 4.0 % 07/16/16 06:00 Lymphocytes % (Manual) 4.0 % (13.4-35.0) L 07/16/16 06:00 Reactive Lymphs % (Man) 0 % 07/16/16 06:00 Monocytes % (Manual) 1.0 % (0.0-7.3) 07/16/16 06:00 Eosinophils % (Manual) 0 % (0.0-4.3) 07/16/16 06:00 Basophils % (Manual) 0 % (0.0-1.8) 07/16/16 06:00 Metamyelocytes % 1.0 % 07/16/16 06:00 Myelocytes % 0 % 07/16/16 06:00 Promyelocytes % 0 % 07/16/16 06:00 Blast Cells % 0 % 07/16/16 06:00 Nucleated RBC % Not Reportable 07/16/16 06:00 Seg Neutrophils # Microwave Technician 07/15/16 Unknown Seg Neutrophils # Man 14.0 K/mm3 (1.8-7.7) H 07/16/16 06:00 Band Neutrophils # 0.6 K/mm3 07/16/16 06:00 Lymphocytes # (Manual) 0.6 K/mm3 (1.2-5.4) L 07/16/16 06:00 Abs React Lymphs (Man) 0.0 K/mm3 07/16/16 06:00 Monocytes # (Manual) 0.2 K/mm3 (0.0-0.8) 07/16/16 06:00 Eosinophils # (Manual) 0.0 K/mm3 (0.0-0.4) 07/16/16 06:00 Basophils # (Manual) 0.0 K/mm3 (0.0-0.1) 07/16/16 06:00 Metamyelocytes # 0.2 K/mm3 07/16/16 06:00 Myelocytes # 0.0 K/mm3 07/16/16 06:00 Promyelocytes # 0.0 K/mm3 07/16/16 06:00 Blast Cells # 0.0 K/mm3 07/16/16 06:00 WBC Morphology Not Reportable 07/16/16 06:00 Hypersegmented Neuts Not Reportable 07/16/16 06:00 Hyposegmented Neuts Not Reportable 07/16/16 06:00 Hypogranular Neuts Not Reportable 07/16/16 06:00 Smudge Cells Not Reportable 07/16/16 06:00 Toxic Granulation Not Reportable 07/16/16 06:00 Toxic Vacuolation Not Reportable 07/16/16 06:00 Dohle Bodies Not Reportable 07/16/16 06:00 Pelger-Huet Anomaly Not Reportable 07/16/16 06:00 Rishabh Rods Not Reportable 07/16/16 06:00 Platelet Estimate Appears normal 07/16/16 06:00 Clumped Platelets Not Reportable 07/16/16 06:00 Plt Clumps, EDTA Not Reportable 07/16/16 06:00 Large Platelets Few 07/16/16 06:00 Giant Platelets Rare 07/16/16 06:00 Platelet Satelliting Not Reportable 07/16/16 06:00 Plt Morphology Comment Not Reportable 07/16/16 06:00 RBC Morphology Not Reportable 07/16/16 06:00 Dimorphic RBCs Not Reportable 07/16/16 06:00 Polychromasia Not Reportable 07/16/16 06:00 Hypochromasia Not Reportable 07/16/16 06:00 Poikilocytosis Not Reportable 07/16/16 06:00 Anisocytosis 1+ 07/16/16 06:00 Microcytosis 1+ 07/16/16 06:00 Macrocytosis Not Reportable 07/16/16 06:00 Spherocytes Not Reportable 07/16/16 06:00 Pappenheimer Bodies Not Reportable 07/16/16 06:00 Sickle Cells Not Reportable 07/16/16 06:00 Target Cells Rare 07/16/16 06:00 Tear Drop Cells Rare 07/16/16 06:00 Ovalocytes 1+ 07/16/16 06:00 Helmet Cells Rare 07/16/16 06:00 [place] Bodies Not Reportable 07/16/16 06:00 Orange Rings Not Reportable 07/16/16 06:00 Augusto Cells 1+ 07/16/16 06:00 Bite Cells Not Reportable 07/16/16 06:00 Crenated Cell Not Reportable 07/16/16 06:00 Elliptocytes Not Reportable 07/16/16 06:00 Acanthocytes (Spur) Not Reportable 07/16/16 06:00 Rouleaux Not Reportable 07/16/16 06:00 Hemoglobin C Crystals Not Reportable 07/16/16 06:00 Schistocytes Not Reportable 07/16/16 06:00 Malaria parasites Not Reportable 07/16/16 06:00 Stephen Bodies Not Reportable 07/16/16 06:00 Hem Pathologist Commnt No 07/16/16 06:00 PT 15.3 Sec. (12.2-14.9) H 07/14/16 14:33 INR 1.22 (0.87-1.13) H 07/14/16 14:33 APTT 30.8 Sec. (24.2-36.6) 07/14/16 14:33 POC ABG pH 7.345 (7.35-7.45) L 07/14/16 14:42 POC ABG pCO2 34.2 (35-45) L 07/14/16 14:42 POC ABG pO2 24 (80-105) L 07/14/16 14:42 POC ABG HCO3 18.6 07/14/16 14:42 POC ABG Total CO2 20 07/14/16 14:42 POC ABG O2 Sat 39 07/14/16 14:42 POC ABG Base Excess -7 07/14/16 14:42 FiO2 28 % 07/14/16 14:42 Sodium 135 mmol/L (137-145) L 07/16/16 06:00 Potassium 3.6 mmol/L (3.6-5.0) 07/16/16 06:00 Chloride 95.8 mmol/L (98-107) L 07/16/16 06:00 Carbon Dioxide 29 mmol/L (22-30) D 07/16/16 06:00 Anion Gap 14 mmol/L 07/16/16 06:00 BUN 70 mg/dL (7-17) H 07/16/16 06:00 Creatinine 5.1 mg/dL (0.7-1.2) H 07/16/16 06:00 Estimated GFR 12 ml/min 07/16/16 06:00 BUN/Creatinine Ratio 13.72 % 07/16/16 06:00 Glucose 122 mg/dL (65-100) H 07/16/16 06:00 POC Glucose 140 (70-105) H 07/15/16 21:32 Lactic Acid 1.6 mmol/L (0.7-2.0) 07/14/16 17:01 Calcium 8.0 mg/dL (8.4-10.2) L 07/16/16 06:00 Magnesium 2.2 mg/dL (1.7-2.3) 07/14/16 14:33 Total Bilirubin 2.1 mg/dL (0.1-1.2) H 07/14/16 14:33 Direct Bilirubin 1.5 mg/dL (0-0.2) H 07/14/16 14:33 Indirect Bilirubin 0.6 mg/dL 07/14/16 14:33 AST 32 units/L (5-40) 07/14/16 14:33 ALT 26 units/L (7-56) 07/14/16 14:33 Alkaline Phosphatase 166 units/L (35-129) H 07/14/16 14:33 Troponin T < 0.010 ng/mL (0.00-0.029) 07/14/16 14:33 NT-Pro-B Natriuret Pep 3986 pg/mL (0-450) H 07/14/16 14:33 Total Protein 8.6 g/dL (6.3-8.2) H 07/14/16 14:33 Albumin 2.3 g/dL (3.9-5) L 07/14/16 14:33 Albumin/Globulin Ratio 0.4 % 07/14/16 14:33 TSH 1.060 mlU/mL (0.270-4.200) 07/14/16 14:33 Free T4 1.21 ng/dL (0.76-1.46) 07/14/16 14:33 Urine Color Jen (Yellow) 07/15/16 07:11 Urine Turbidity Cloudy (Clear) 07/15/16 07:11 Urine pH 5.0 (5.0-7.0) 07/15/16 07:11 Ur Specific [place] 1.016 (1.003-1.030) 07/15/16 07:11 Urine Protein 30 mg/dl mg/dL (Negative) 07/15/16 07:11 Urine Glucose (UA) Neg mg/dL (Negative) 07/15/16 07:11 Urine Ketones Neg mg/dL (Negative) 07/15/16 07:11 Urine Blood Lg (Negative) 07/15/16 07:11 Urine Nitrite Neg (Negative) 07/15/16 07:11 Urine Bilirubin Neg (Negative) 07/15/16 07:11 Urine Ictotest Negative (Negative) 07/14/16 Unknown Urine Urobilinogen 4.0 mg/dL (<2.0) 07/15/16 07:11 Ur Leukocyte Esterase Sm (Negative) 07/15/16 07:11 Urine WBC (Auto) 15.0 /HPF (0.0-6.0) H 07/15/16 07:11 Urine RBC (Auto) 115.0 /HPF (0.0-6.0) 07/15/16 07:11 U Epithel Cells (Auto) < 1.0 /HPF (0-13.0) 07/15/16 07:11 Urine Bacteria (Auto) 2+ /HPF (Negative) 07/15/16 07:11 Urine WBC Clumps 3+ /HPF 07/14/16 Unknown Hyaline Casts 3 /LPF 07/15/16 07:11 Urine Mucus Few /HPF 07/15/16 07:11 Urine Eosinophils None seen (None Seen) 07/15/16 07:11 Urine Creatinine 143.6 mg/dL (0.1-20.0) H 07/15/16 07:11 Protein/Creatinin Ratio 1.16 07/15/16 07:11 Urine Sodium 45 mEq/L 07/15/16 07:11 Urine Total Protein 166 mg/dL (5-11.8) H 07/15/16 07:11 Urine HCG, Qual Negative (Negative) 07/14/16 Unknown Urine Opiates Screen Presumptive negative 07/14/16 Unknown Urine Methadone Screen Presumptive negative 07/14/16 Unknown Ur Barbiturates Screen Presumptive negative 07/14/16 Unknown Ur Phencyclidine Scrn Presumptive negative 07/14/16 Unknown Ur Amphetamines Screen Presumptive negative 07/14/16 Unknown U Benzodiazepines Scrn Presumptive negative 07/14/16 Unknown Urine Cocaine Screen Presumptive negative 07/14/16 Unknown U Marijuana (THC) Screen Presumptive negative 07/14/16 Unknown Drugs of Abuse Note Disclamer 07/14/16 Unknown Hepatitis A IgM Ab -1 (NonReactive) 07/15/16 Unknown Hep Bs Antigen Non-reactive (Negative) 07/15/16 Unknown Hep B Core IgM Ab Non-reactive (NonReactive) 07/15/16 Unknown Hepatitis C Antibody Non-reactive (NonReactive) 07/15/16 Unknown Blood Type B POSITIVE 07/14/16 16:00 Antibody Screen Negative 07/14/16 16:00
[2016-07-16] MEDS ORDERED: NACL 0.9% 1000 ML 100 ML IV PRN (09:33)
--- NOTE | 2016-07-16 09:37 | Progress Note ---
Assessment and Plan Impression: * Oliguric acute kidney injury secondary to ATN vs HIVAN * Sepsis secondary to GNR bacteremia * HIV * Metabolic acidosis Plan: * Hemodialysis today via vascath; no UF at this time * Abx per ID * Await serologic work up * Renal u/s reviewed - if renal function fails to recover, patient may require renal bx for diagnosis/prognosis * Renal diet * Avoid potential nephrotoxins * Dose medications for renal function Subjective Date of service: 07/16/16 Interval history: Patient has no complaints today. Objective - Vital Signs Vital signs: Vital Signs - 12hr 07/15/16 07/15/16 07/15/16 21:49 22:00 23:00 Temperature Pulse Rate 102 H 106 H Respiratory 22 21 23 Rate Blood Pressure 108/66 108/59 O2 Sat by Pulse 97 92 Oximetry 07/15/16 07/16/16 07/16/16 23:53 00:00 00:07 Temperature Pulse Rate 100 H 96 H 99 H Respiratory 15 20 20 Rate Blood Pressure 103/61 103/61 O2 Sat by Pulse 100 100 100 Oximetry 07/16/16 07/16/16 07/16/16 01:00 01:02 02:00 Temperature 98.3 F Pulse Rate 102 H 98 H Respiratory 23 25 H Rate Blood Pressure 103/60 106/50 O2 Sat by Pulse 91 100 Oximetry 07/16/16 07/16/16 07/16/16 03:00 04:00 04:22 Temperature 98.1 F Pulse Rate 92 H 92 H Respiratory 24 20 Rate Blood Pressure 97/58 92/55 O2 Sat by Pulse 100 100 Oximetry 07/16/16 07/16/16 07/16/16 05:00 05:18 05:44 Temperature Pulse Rate 83 88 Respiratory 18 21 23 Rate Blood Pressure 85/47 92/53 O2 Sat by Pulse 100 99 Oximetry 07/16/16 07/16/16 07/16/16 05:45 06:00 07:00 Temperature Pulse Rate 97 H 90 Respiratory 23 19 19 Rate Blood Pressure 104/50 102/63 O2 Sat by Pulse 98 94 Oximetry 07/16/16 08:00 Temperature 97.9 F Pulse Rate 94 H Respiratory 16 Rate Blood Pressure 108/65 O2 Sat by Pulse 91 Oximetry - General Appearance General appearance: well-developed, well-nourished EENT: ATNC Respiratory: Present: Clear to Ascultation Cardiology: regular, S1S2 Gastrointestinal: normal, no tenderness, no distended Neurologic: no focal deficit Musculoskeletal: other (no edema) Psychiatric: mood/affect appropriate - Lab 07/17/16 06:10 07/17/16 06:10 Most recent lab results Calcium 8.0 mg/dL (8.4-10.2) L 07/16/16 06:00 Magnesium 2.2 mg/dL (1.7-2.3) 07/14/16 14:33 Urine Creatinine 143.6 mg/dL (0.1-20.0) H 07/15/16 07:11 Urine Sodium 45 mEq/L 07/15/16 07:11 Urine Total Protein 166 mg/dL (5-11.8) H 07/15/16 07:11
--- NOTE | 2016-07-16 10:02 | Progress Note ---
Assessment and Plan Current antibiotics: Meropenem 1 g IV q24h 07/14 --> Vancomycin (pulse dose) IV 07/14 --> Previous antibiotics: Clindamycin 600 mg IV X 1 07/14 Antiretrovirals: (on hold now) Truvada 1 tab po q day Norvir 100 mg po q day Darunavir 800 mg po q day ASSESSMENT: Helga Carroll is a 31 y/o female with HIV infection, type 2 DM and asthma who was admitted to [facility] on 07/14 with a several day history of anterior chest pain, cough with occasional "greenish sputum production, subjective fevers and chills and was found to be hypotensive in the ED. She was also found to have MARY. Problem list: 1. Gram negative bacteremia & sepsis -Source unclear -She did not appear to have a urinary tract infection and was asymptomatic as well -Rule out pulmonary source -Blood intra-abdominal source -Clinically improved 2. HIV infection -ARV therapy: Truvada, Norvir & darunavir -CD4 and VL unclear although reportedly "good." 3. MARY -? secondary to #1 -HD initiated 4. Leukocytosis -Secondary to #1 -Somewhat improved today 5. Penicillin allergy -"Tongue swells up" 6. Anemia Plan: 1. Will continue empiric vancomycin and meropenem pending culture data 2. If no distant Gram positives isolated Will stop vancomycin 2. Continue to hold Truvada and darunavir/Norvir in light of her renal failure 3. Await information from the [facility] (we called yesterday) 4. Continued supportive measures as are being done Mark Sanchez MD [facility] Office: [phone] Subjective Date of service: 07/16/16 Principal diagnosis: Sepsis; + HIV Interval history: Feels a little better. Still with some right lateral chest discomfort. Minimal cough and no sputum production. No subjective fevers or chills. Status post right IJ vas cath placement yesterday. Objective - Exam Narrative Exam: GENERAL: Well-developed, well-nourished appearing female who is alert and in no acute distress. She only appears mildly ill. HEAD: Normocephalic. No lesions seen. EYES: Pupils are equal reactive to light and accommodation. There is no scleral icterus. Optic fundi are normal. EARS: Tympanic membranes are normal. THROAT: Oropharynx is normal with no evidence of oral candidiasis or pharyngitis. Mildly dry mucus membranes. NECK: Supple. No enlargement of the thyroid gland. No significant cervical lymphadenopathy. No jugular venous distention at 30. Right IJ Vas-Cath in place LUNGS: Clear with no adventitious sounds. CHEST: Mild tenderness over the right lateral chest with no other objective findings. HEART: Regular rate. S1 and S2 are normal. There are no murmurs, gallops, clicks or rubs heard. ABDOMEN: Soft, mildly distended and nontender. Liver and spleen are not palpably enlarged or tender. No palpable masses. Bowel sounds are normoactive. EXTREMITIES: No peripheral lymphadenopathy, clubbing or edema. SKIN: Multiple tattoos; no rash : Not examined. No Santiago. NEUROLOGIC: No focal findings. - Constitutional Vitals: Vital Signs Temp Pulse Resp BP Pulse Ox 97.9 F 94 H 16 108/65 91 07/16/16 08:00 07/16/16 08:00 07/16/16 08:00 07/16/16 08:00 07/16/16 08:00 Temperature -Last 24 Hours Temperature 97.9 F Temperature 98.1 F Temperature 98.3 F Temperature 98.1 F Temperature 98.1 F Temperature 97.6 F Temperature 97.6 F Temperature 98.6 F - Labs CBC & Chem 7: 07/16/16 06:00 07/16/16 06:00 Labs: Abnormal lab results Microbiology 07/14/16 14:33 Peripheral/Venous Blood Culture - Preliminary Gram Negative Hans in 1/2 bottle so far 07/14/16 14:33 Peripheral/Venous Blood Culture - Preliminary NO GROWTH AFTER 24 HOURS 07/14/16 14:20 Urine,Catheterized - Straight Catheter Urine Culture - Preliminary NO GROWTH AFTER 24 HOURS Imagin/22: CXR: Faint left lower lobe infiltrate
--- NOTE | 2016-07-16 10:19 | Vascular Lab Report ---
MISCELLANEOUS VESSEL IDENTIFICATION: COMMENTS ON THE SCAN: The right internal jugular vein was identified and under real-time ultrasound guidance was cannulated. IMPRESSION: Successful ultrasound guided vein cannulation.
[2016-07-16] MEDS: MERREM IV SCH (10:30)
[2016-07-16] MEDS: NACL 0.9% IV SCH (10:30)
--- NOTE | 2016-07-16 16:16 | Query- Nutrition ---
Dear Dr. Ester Nava Date: July 16, 2016 Director Supply/CDS: Stanley Harris Phone#: [phone] Exercise your independent professional judgment when responding to query. Questions asked do not imply a particular answer is desired or expected. We greatly appreciate your clarification on this issue. Clinical Documentation States: 31/y F with history of HIV, DM & asthma is admitted for chest pain in [facility] w/ RVR. H&P by Dr. Oshea on 07/15 states : "Sepsis secondary to possible left lower lobe infiltrate.","Human-immunodeficiency virus status" Renal Consult by Dr. Bhakta on 07/15 states : "appx 1.5 week ago when she began having night sweats followed by nasuea/vomiting.","She reports inability to tolerate po intake since that time" Clinical Findings Show: BMI: 25.8 kg/m2 Sr.Albumin: 2.3 g/dL L (07/14) Lymphocyte #: 1200/u L2 (07/14), 1000/uL2 (07/15), 600/uL2 (07/16) Please select the most appropriate option 3 [] Mild Malnutrition [] Mild - Moderate Malnutrition [] Moderate - Severe Malnutrition [x] Severe Malnutrition Serum Albumin 2.8 to 3.4 g/dl or Pre-albumin 5 to 17 mg/dl1,2 Inadequate nutritional intake1,2,3,4 NPO > 5 days Weight loss: 5% in 1 month or 7.5% in 3 months or 10% in 6 months1, 3,4 BMI 16 to 18.4 or Weight <90% of ideal body weight1,2,3,4 Serum Albumin < 2.8 g/ dl1,2 Lymphocytes < 1500/ L2 Inadequate nutritional intake3, high stress e.g. major trauma, sepsis,pancreatitis, henning etc. Decubitus ulcers1,2, , skin breakdown2, easy hair pluckability2 Weight <80% standard for height2 Triceps skin fold <3 mm2 Mid-arm muscle circumference <15 cm2 Creatinine-height index <60% standard2 [ ] Cachexia [ ] Emaciated w/Malnutrition [ ] Other: [ ] Unable to determine [ ] Comment/Explanation: Present on Admission: [x ] Yes (Y) [ ] Clinically undeterminable (W) [ ] No (N) Please also document response in your Progress Notes and/or Discharge Summary and indicate if the condition was present on admission. MTDD
[2016-07-16] MEDS: HEPARIN IV PRN (18:15)
[2016-07-16] MEDS: TYLENOL PO PRN (23:22)
[2016-07-16] MEDS: TESSALON PERLES PO PRN (23:22)
[2016-07-17] MEDS: DILAUDID IV PRN ×6 (02:36→22:00)
[2016-07-17 06:24] LABS: Hematocrit 21.1 % (30.3-42.9); Mean Corpuscular HGB Conc 33 % (30-34); Mean Corpuscular Volume 78 fl (79-97); Platelet Count 260 K/mm3 (140-440); Red Blood Count 2.71 M/mm3 (3.65-5.03); Red Cell Distribution Width 14.5 % (13.2-15.2); White Blood Count 10.9 K/mm3 (4.5-11.0)
[2016-07-17 06:25] LABS: Mean Corpuscular Hemoglobin 26 pg (28-32)
[2016-07-17 06:39] LABS: BUN/Creatinine Ratio 10.96; Calcium 8.2 mg/dL (8.4-10.2); Chloride 97.2 mmol/L (98-107); Magnesium 1.7 mg/dL (1.7-2.3); Potassium 3.8 mmol/L (3.6-5.0)
[2016-07-17] MEDS ORDERED: NACL 0.9% 500 ML 500 ML IV NR (08:00)
[2016-07-17 08:05] LABS: Anisocytosis 1+; Basophils % (Manual) 0 % (0.0-1.8); Blastocytes % (Manual) 0 %; Eosinophils % (Manual) 0 % (0.0-4.3); Microcytosis 1+
[2016-07-17 08:06] LABS: Hypochromasia 1+; Ovalocytes 1+; Tear Drop Cells Rare
[2016-07-17 08:07] LABS: Diff Status Complete
--- NOTE | 2016-07-17 09:06 | Progress Note ---
Assessment and Plan Impression: * Oliguric acute kidney injury secondary to ATN vs HIVAN * Sepsis secondary to haemophilus bacteremia * LLL pneumonia * HIV * Metabolic acidosis Plan: * Hold hemodialysis today; reassess need for HD tomorrow am * Abx per ID * Await serologic work up * Renal u/s reviewed - if renal function fails to recover, patient may require renal bx for diagnosis/prognosis * Renal diet * Avoid potential nephrotoxins * Dose medications for renal function Subjective Date of service: 07/17/16 Principal diagnosis: Sepsis; + HIV Interval history: Patient without complaint Objective - Vital Signs Vital signs: Vital Signs - 12hr 07/16/16 07/16/16 07/16/16 21:21 23:00 23:21 Temperature 100.6 F H Pulse Rate [ 102 H Left] Respiratory 20 18 Rate Respiratory Rate [c/p] Blood Pressure 125/76 O2 Sat by Pulse 98 100 Oximetry 07/16/16 07/16/16 07/17/16 23:22 23:51 00:22 Temperature Pulse Rate [ Left] Respiratory 20 18 18 Rate Respiratory Rate [c/p] Blood Pressure O2 Sat by Pulse Oximetry 07/17/16 07/17/16 07/17/16 02:36 03:06 05:02 Temperature Pulse Rate [ Left] Respiratory 18 18 Rate Respiratory 18 Rate [c/p] Blood Pressure O2 Sat by Pulse Oximetry 07/17/16 07/17/16 05:55 08:45 Temperature 98.7 F Pulse Rate [ 102 H Left] Respiratory 18 20 Rate Respiratory Rate [c/p] Blood Pressure 127/82 O2 Sat by Pulse 95 Oximetry - General Appearance General appearance: well-developed, well-nourished EENT: ATNC Respiratory: Present: Clear to Ascultation Cardiology: regular, S1S2 Gastrointestinal: normal, no tenderness, no distended Neurologic: alert and oriented x3 Psychiatric: mood/affect appropriate, cooperative - Lab 07/17/16 06:10 07/17/16 06:10 Most recent lab results Calcium 8.2 mg/dL (8.4-10.2) L 07/17/16 06:10 Magnesium 1.7 mg/dL (1.7-2.3) 07/17/16 06:10 Urine Creatinine 143.6 mg/dL (0.1-20.0) H 07/15/16 07:11 Urine Sodium 45 mEq/L 07/15/16 07:11 Urine Total Protein 166 mg/dL (5-11.8) H 07/15/16 07:11
[2016-07-17] MEDS: NACL 0.9% IV SCH (09:36)
[2016-07-17] MEDS: MERREM IV SCH (09:36)
[2016-07-17] MEDS: TESSALON PERLES PO PRN (09:48)
--- NOTE | 2016-07-17 10:16 | Progress Note ---
Assessment and Plan Current antibiotics: Meropenem 1 g IV q24h 07/14 --> Vancomycin (pulse dose) IV 07/14 --> Previous antibiotics: Clindamycin 600 mg IV X 1 07/14 Antiretrovirals: (on hold now) Truvada 1 tab po q day Norvir 100 mg po q day Darunavir 800 mg po q day ASSESSMENT: Helga Carroll is a 31 y/o female with HIV infection, type 2 DM and asthma who was admitted to [facility] on 07/14 with a several day history of anterior chest pain, cough with occasional "greenish sputum production, subjective fevers and chills and was found to be hypotensive in the ED. She was also found to have MARY. Problem list: 1. Haemohilus influenzae bacteremia & sepsis -06/26 bottles from 07/14 positive -Likely pulmonary or upper respiratory source -Clinically improved 2. HIV infection -ARV therapy: Truvada, Norvir & darunavir -CD4 in the upper 200s and VL undetectable according to [facility] records 3. MARY -? secondary to #1 -HD initiated -? renal function improving 4. Leukocytosis -Secondary to #1 -Resolved 5. Penicillin allergy -"Tongue swells up" 6. Anemia PLAN: 1. Will continue meropenem pending sensitivity data 2. Will stop vancomycin 3. Continue to hold Truvada and darunavir/Norvir in light of her renal failure 4. Will recheck blood cultures to document clearance 5. Repeat CXR 6. Continued supportive measures as are being done Mark Sanchez MD [facility] Office: [phone] Subjective Date of service: 07/17/16 Principal diagnosis: Sepsis; + HIV Interval history: Complains of constipation. Right lateral chest discomfort ~ the same. Minimal nonproductive cough ~ the same. No subjective fevers or chills. Objective - Exam Narrative Exam: GENERAL: Well-developed, well-nourished appearing female who is alert and in no acute distress. She only appears mildly ill. Mildly depressed affect. HEAD: Normocephalic. No lesions seen. EYES: Pupils are equal reactive to light and accommodation. There is no scleral icterus. Optic fundi are normal. EARS: Tympanic membranes are normal. THROAT: Oropharynx is normal with no evidence of oral candidiasis or pharyngitis. Mildly dry mucus membranes. NECK: Supple. No enlargement of the thyroid gland. No significant cervical lymphadenopathy. No jugular venous distention at 30. Right IJ Vas-Cath in place LUNGS: Clear with no adventitious sounds. CHEST: Mild tenderness over the right lateral chest with no other objective findings. HEART: Regular rate. S1 and S2 are normal. There are no murmurs, gallops, clicks or rubs heard. ABDOMEN: Soft, mildly distended and nontender. Liver and spleen are not palpably enlarged or tender. No palpable masses. Bowel sounds are normoactive. EXTREMITIES: No peripheral lymphadenopathy, clubbing or edema. SKIN: Multiple tattoos; no rash : Not examined. No Santiago. NEUROLOGIC: No focal findings. - Constitutional Vitals: Vital Signs Temp Pulse Resp BP Pulse Ox 98.7 F 102 H 20 127/82 96 07/17/16 08:45 07/17/16 08:45 07/17/16 08:45 07/17/16 08:45 07/17/16 10:13 Temperature -Last 24 Hours Temperature 98.7 F Temperature 100.6 F Temperature 98.1 F Temperature 98.1 F Temperature 97.1 F Temperature 97.2 F - Labs CBC & Chem 7: 07/17/16 06:10 07/17/16 06:10 Labs: Abnormal lab results Microbiology 07/14/16 14:33 Peripheral/Venous Blood Culture - Preliminary Haemophilus influenzae in 1/2 bottle so far 07/14/16 14:33 Peripheral/Venous Blood Culture - Preliminary NO GROWTH AFTER 24 HOURS 07/14/16 14:20 Urine,Catheterized - Straight Catheter Urine Culture - Preliminary NO GROWTH AFTER 24 HOURS Received records from [facility] and she was last seen in 11/2015 but no CD4 or viral load were done on that visit. Previous studies showed undetectable viral load and CD4 in the upper 200s. Imagin/22: CXR: Faint left lower lobe infiltrate
[2016-07-17 11:00] LABS: Myeloperoxidase Antibody <1.0 AI (<1.0)
--- NOTE | 2016-07-17 12:21 | Progress Note ---
Assessment and Plan A fib FVR episode. Controlled Haemophilus Pneumonia. Switch over to meropenem by ID. Off VANCOMYCIN MARY HIV Rec Continue ABX, agree with ID recommendations nephrology follow-up Acapella valve therapy Continue O2 support Subjective Date of service: 07/17/16 Principal diagnosis: Haemophilus pneumonia, Sepsis; + HIV, acute kidney injury Interval history: Some cough coming up with some discomfort on the left base with breathing Objective Vital Signs - 12hr 07/17/16 07/17/16 07/17/16 00:22 02:36 03:06 Temperature Pulse Rate [ Left] Respiratory 18 18 18 Rate Respiratory Rate [c/p] Blood Pressure O2 Sat by Pulse Oximetry 07/17/16 07/17/16 07/17/16 05:02 05:55 08:45 Temperature 98.7 F Pulse Rate [ 102 H Left] Respiratory 18 20 Rate Respiratory 18 Rate [c/p] Blood Pressure 127/82 O2 Sat by Pulse 95 Oximetry 07/17/16 10:13 Temperature Pulse Rate [ Left] Respiratory Rate Respiratory Rate [c/p] Blood Pressure O2 Sat by Pulse 96 Oximetry Constitutional: no acute distress, alert Eyes: non-icteric ENT: oropharynx moist Ascultation: Bilateral: rales ( at left base) Cardiovascular: regular rate and rhythm CBC and BMP: 07/17/16 06:10 07/17/16 06:10 ABG, PT/INR, D-dimer: ABG POC ABG pH 7.345 (7.35-7.45) L 07/14/16 14:42 POC ABG pCO2 34.2 (35-45) L 07/14/16 14:42 POC ABG pO2 24 (80-105) L 07/14/16 14:42 POC ABG HCO3 18.6 07/14/16 14:42 POC ABG Total CO2 20 07/14/16 14:42 POC ABG O2 Sat 39 07/14/16 14:42 PT/INR, D-dimer PT 15.3 Sec. (12.2-14.9) H 07/14/16 14:33 INR 1.22 (0.87-1.13) H 07/14/16 14:33 Abnormal lab findings: Abnormal Labs 07/15/16 07/15/16 07/15/16 07:11 07:11 21:32 WBC RBC Hgb Hct MCV MCH Seg Neuts % (Manual) Lymphocytes % (Manual) Seg Neutrophils # Man Lymphocytes # (Manual) Sodium Chloride BUN Creatinine Glucose POC Glucose 140 H Calcium Urine WBC (Auto) 15.0 H Urine Creatinine 143.6 H Urine Total Protein 166 H Complement C4 07/15/16 07/15/16 07/15/16 Unknown Unknown Unknown WBC 19.0 H RBC 2.82 L Hgb 7.1 L Hct 21.6 L D MCV 77 L D MCH 25 L Seg Neuts % (Manual) 81.0 H Lymphocytes % (Manual) 5.0 L Seg Neutrophils # Man 15.4 H Lymphocytes # (Manual) 1.0 L Sodium 134 L Chloride 97.6 L BUN 104 H Creatinine 6.9 H Glucose POC Glucose Calcium 7.8 L Urine WBC (Auto) Urine Creatinine Urine Total Protein Complement C4 14 L 07/16/16 07/16/16 07/16/16 06:00 06:00 07:29 WBC 15.6 H RBC 2.74 L Hgb 7.1 L Hct 21.3 L MCV 78 L MCH 26 L Seg Neuts % (Manual) 90.0 H Lymphocytes % (Manual) 4.0 L Seg Neutrophils # Man 14.0 H Lymphocytes # (Manual) 0.6 L Sodium 135 L Chloride 95.8 L BUN 70 H Creatinine 5.1 H Glucose 122 H POC Glucose 129 H Calcium 8.0 L Urine WBC (Auto) Urine Creatinine Urine Total Protein Complement C4 07/16/16 07/17/16 07/17/16 11:56 06:10 06:10 WBC RBC 2.71 L Hgb 7.0 L Hct 21.1 L MCV 78 L MCH 26 L Seg Neuts % (Manual) 94.0 H Lymphocytes % (Manual) 3.0 L Seg Neutrophils # Man 10.2 H Lymphocytes # (Manual) 0.3 L Sodium 134 L Chloride 97.2 L BUN 34 H Creatinine 3.1 H Glucose POC Glucose 122 H Calcium 8.2 L Urine WBC (Auto) Urine Creatinine Urine Total Protein Complement C4
--- NOTE | 2016-07-17 13:28 | Progress Note ---
Assessment and Plan Assessment and plan: --Acute on chronic anemia Type and cross transfuse 2 units of PRBC Closely monitor H&H --s/p septic shock, off pressors --gram-negative bacteremia continue meropenem and vancomycin Repeat cultures negative to date ID following --Possible small left lower lobe pneumonia chest x-ray Continue current antibiotics follow cultures --Acute renal failure; nephrology following hemodialysis per schedule --History of HIV AIDS antiretrovirals are on hold in view of sepsis and acute renal failure --DVT prophylaxis with Lovenox Closely monitor the patient and adjust management as needed Plan of care discussed with the patient as well as her nurse History Interval history: Patient seen and evaluated medical records reviewed No new events reported by the nursing staff Significant drop in H&H, will transfuse 2 units of PRBC Denies chest pain shortness of breath Alert awake oriented 3 not in acute distress Hospitalist Physical - Constitutional Vitals: Temp Pulse Resp BP Pulse Ox 98.7 F 102 H 20 127/82 96 07/17/16 08:45 07/17/16 08:45 07/17/16 08:45 07/17/16 08:45 07/17/16 10:13 General appearance: Present: no acute distress, well-nourished - EENT Eyes: Present: PERRL, EOM intact - Neck Neck: Present: supple, normal ROM - Respiratory Respiratory effort: normal Respiratory: bilateral: diminished, negative: rales, rhonchi, wheezing - Cardiovascular Rhythm: regular Heart Sounds: Present: S1 & S2 - Extremities Extremities: no ischemia, pulses intact, pulses symmetrical Peripheral Pulses: within normal limits - Abdominal General gastrointestinal: soft, non-tender, non-distended, normal bowel sounds - Integumentary Integumentary: Present: clear, warm - Psychiatric Psychiatric: appropriate mood/affect, cooperative - Neurologic Neurologic: CNII-XII intact, moves all extremities Results - Labs CBC & Chem 7: 07/17/16 06:10 07/17/16 06:10 Labs: Laboratory Last Values WBC 10.9 K/mm3 (4.5-11.0) 07/17/16 06:10 RBC 2.71 M/mm3 (3.65-5.03) L 07/17/16 06:10 Hgb 7.0 gm/dl (10.1-14.3) L 07/17/16 06:10 Hct 21.1 % (30.3-42.9) L 07/17/16 06:10 MCV 78 fl (79-97) L 07/17/16 06:10 MCH 26 pg (28-32) L 07/17/16 06:10 MCHC 33 % (30-34) 07/17/16 06:10 RDW 14.5 % (13.2-15.2) 07/17/16 06:10 Plt Count 260 K/mm3 (140-440) 07/17/16 06:10 Lymph % (Auto) Doll Dresser 07/15/16 Unknown [place] % (Auto) Doll Dresser 07/15/16 Unknown Eos % (Auto) Doll Dresser 07/15/16 Unknown Baso % (Auto) Doll Dresser 07/15/16 Unknown Lymph # Doll Dresser 07/15/16 Unknown [place] # Doll Dresser 07/15/16 Unknown Eos # Doll Dresser 07/15/16 Unknown Baso # Doll Dresser 07/15/16 Unknown Add Manual Diff Complete 07/17/16 06:10 Total Counted 100 07/17/16 06:10 Seg Neutrophils % Doll Dresser 07/15/16 Unknown Seg Neuts % (Manual) 94.0 % (40.0-70.0) H 07/17/16 06:10 Band Neutrophils % 1.0 % 07/17/16 06:10 Lymphocytes % (Manual) 3.0 % (13.4-35.0) L 07/17/16 06:10 Reactive Lymphs % (Man) 0 % 07/17/16 06:10 Monocytes % (Manual) 1.0 % (0.0-7.3) 07/17/16 06:10 Eosinophils % (Manual) 0 % (0.0-4.3) 07/17/16 06:10 Basophils % (Manual) 0 % (0.0-1.8) 07/17/16 06:10 Metamyelocytes % 1.0 % 07/17/16 06:10 Myelocytes % 0 % 07/17/16 06:10 Promyelocytes % 0 % 07/17/16 06:10 Blast Cells % 0 % 07/17/16 06:10 Nucleated RBC % Not Reportable 07/17/16 06:10 Seg Neutrophils # Doll Dresser 07/15/16 Unknown Seg Neutrophils # Man 10.2 K/mm3 (1.8-7.7) H 07/17/16 06:10 Band Neutrophils # 0.1 K/mm3 07/17/16 06:10 Lymphocytes # (Manual) 0.3 K/mm3 (1.2-5.4) L 07/17/16 06:10 Abs React Lymphs (Man) 0.0 K/mm3 07/17/16 06:10 Monocytes # (Manual) 0.1 K/mm3 (0.0-0.8) 07/17/16 06:10 Eosinophils # (Manual) 0.0 K/mm3 (0.0-0.4) 07/17/16 06:10 Basophils # (Manual) 0.0 K/mm3 (0.0-0.1) 07/17/16 06:10 Metamyelocytes # 0.1 K/mm3 07/17/16 06:10 Myelocytes # 0.0 K/mm3 07/17/16 06:10 Promyelocytes # 0.0 K/mm3 07/17/16 06:10 Blast Cells # 0.0 K/mm3 07/17/16 06:10 WBC Morphology Not Reportable 07/17/16 06:10 Hypersegmented Neuts Not Reportable 07/17/16 06:10 Hyposegmented Neuts Not Reportable 07/17/16 06:10 Hypogranular Neuts Not Reportable 07/17/16 06:10 Smudge Cells Not Reportable 07/17/16 06:10 Toxic Granulation Not Reportable 07/17/16 06:10 Toxic Vacuolation Not Reportable 07/17/16 06:10 Dohle Bodies Not Reportable 07/17/16 06:10 Pelger-Huet Anomaly Not Reportable 07/17/16 06:10 Rishabh Rods Not Reportable 07/17/16 06:10 Platelet Estimate Appears normal 07/17/16 06:10 Clumped Platelets Not Reportable 07/17/16 06:10 Plt Clumps, EDTA Not Reportable 07/17/16 06:10 Large Platelets Not Reportable 07/17/16 06:10 Giant Platelets Not Reportable 07/17/16 06:10 Platelet Satelliting Not Reportable 07/17/16 06:10 Plt Morphology Comment Not Reportable 07/17/16 06:10 RBC Morphology Not Reportable 07/17/16 06:10 Dimorphic RBCs Not Reportable 07/17/16 06:10 Polychromasia Not Reportable 07/17/16 06:10 Hypochromasia 1+ 07/17/16 06:10 Poikilocytosis Not Reportable 07/17/16 06:10 Anisocytosis 1+ 07/17/16 06:10 Microcytosis 1+ 07/17/16 06:10 Macrocytosis Not Reportable 07/17/16 06:10 Spherocytes Not Reportable 07/17/16 06:10 Pappenheimer Bodies Not Reportable 07/17/16 06:10 Sickle Cells Not Reportable 07/17/16 06:10 Target Cells Not Reportable 07/17/16 06:10 Tear Drop Cells Rare 07/17/16 06:10 Ovalocytes 1+ 07/17/16 06:10 Helmet Cells Not Reportable 07/17/16 06:10 Hanna-Afton Bodies Not Reportable 07/17/16 06:10 [place] Rings Not Reportable 07/17/16 06:10 Augusto Cells Not Reportable 07/17/16 06:10 Bite Cells Not Reportable 07/17/16 06:10 Crenated Cell Not Reportable 07/17/16 06:10 Elliptocytes Not Reportable 07/17/16 06:10 Acanthocytes (Spur) Not Reportable 07/17/16 06:10 Rouleaux Not Reportable 07/17/16 06:10 Hemoglobin C Crystals Not Reportable 07/17/16 06:10 Schistocytes Not Reportable 07/17/16 06:10 Malaria parasites Not Reportable 07/17/16 06:10 Stephen Bodies Not Reportable 07/17/16 06:10 Hem Pathologist Commnt No 07/17/16 06:10 PT 15.3 Sec. (12.2-14.9) H 07/14/16 14:33 INR 1.22 (0.87-1.13) H 07/14/16 14:33 APTT 30.8 Sec. (24.2-36.6) 07/14/16 14:33 POC ABG pH 7.345 (7.35-7.45) L 07/14/16 14:42 POC ABG pCO2 34.2 (35-45) L 07/14/16 14:42 POC ABG pO2 24 (80-105) L 07/14/16 14:42 POC ABG HCO3 18.6 07/14/16 14:42 POC ABG Total CO2 20 07/14/16 14:42 POC ABG O2 Sat 39 07/14/16 14:42 POC ABG Base Excess -7 07/14/16 14:42 FiO2 28 % 07/14/16 14:42 Sodium 134 mmol/L (137-145) L 07/17/16 06:10 Potassium 3.8 mmol/L (3.6-5.0) 07/17/16 06:10 Chloride 97.2 mmol/L (98-107) L 07/17/16 06:10 Carbon Dioxide 30 mmol/L (22-30) 07/17/16 06:10 Anion Gap 11 mmol/L 07/17/16 06:10 BUN 34 mg/dL (7-17) H 07/17/16 06:10 Creatinine 3.1 mg/dL (0.7-1.2) H 07/17/16 06:10 Estimated GFR 21 ml/min 07/17/16 06:10 BUN/Creatinine Ratio 10.96 % 07/17/16 06:10 Glucose 100 mg/dL (65-100) 07/17/16 06:10 POC Glucose 122 (70-105) H 07/16/16 11:56 Lactic Acid 1.6 mmol/L (0.7-2.0) 07/14/16 17:01 Calcium 8.2 mg/dL (8.4-10.2) L 07/17/16 06:10 Magnesium 1.7 mg/dL (1.7-2.3) 07/17/16 06:10 Total Bilirubin 2.1 mg/dL (0.1-1.2) H 07/14/16 14:33 Direct Bilirubin 1.5 mg/dL (0-0.2) H 07/14/16 14:33 Indirect Bilirubin 0.6 mg/dL 07/14/16 14:33 AST 32 units/L (5-40) 07/14/16 14:33 ALT 26 units/L (7-56) 07/14/16 14:33 Alkaline Phosphatase 166 units/L (35-129) H 07/14/16 14:33 Troponin T < 0.010 ng/mL (0.00-0.029) 07/14/16 14:33 NT-Pro-B Natriuret Pep 3986 pg/mL (0-450) H 07/14/16 14:33 Total Protein 8.6 g/dL (6.3-8.2) H 07/14/16 14:33 Albumin 2.3 g/dL (3.9-5) L 07/14/16 14:33 Albumin/Globulin Ratio 0.4 % 07/14/16 14:33 TSH 1.060 mlU/mL (0.270-4.200) 07/14/16 14:33 Free T4 1.21 ng/dL (0.76-1.46) 07/14/16 14:33 Urine Color Jen (Yellow) 07/15/16 07:11 Urine Turbidity Cloudy (Clear) 07/15/16 07:11 Urine pH 5.0 (5.0-7.0) 07/15/16 07:11 Ur Specific [place] 1.016 (1.003-1.030) 07/15/16 07:11 Urine Protein 30 mg/dl mg/dL (Negative) 07/15/16 07:11 Urine Glucose (UA) Neg mg/dL (Negative) 07/15/16 07:11 Urine Ketones Neg mg/dL (Negative) 07/15/16 07:11 Urine Blood Lg (Negative) 07/15/16 07:11 Urine Nitrite Neg (Negative) 07/15/16 07:11 Urine Bilirubin Neg (Negative) 07/15/16 07:11 Urine Ictotest Negative (Negative) 07/14/16 Unknown Urine Urobilinogen 4.0 mg/dL (<2.0) 07/15/16 07:11 Ur Leukocyte Esterase Sm (Negative) 07/15/16 07:11 Urine WBC (Auto) 15.0 /HPF (0.0-6.0) H 07/15/16 07:11 Urine RBC (Auto) 115.0 /HPF (0.0-6.0) 07/15/16 07:11 U Epithel Cells (Auto) < 1.0 /HPF (0-13.0) 07/15/16 07:11 Urine Bacteria (Auto) 2+ /HPF (Negative) 07/15/16 07:11 Urine WBC Clumps 3+ /HPF 07/14/16 Unknown Hyaline Casts 3 /LPF 07/15/16 07:11 Urine Mucus Few /HPF 07/15/16 07:11 Urine Eosinophils None seen (None Seen) 07/15/16 07:11 Urine Creatinine 143.6 mg/dL (0.1-20.0) H 07/15/16 07:11 Protein/Creatinin Ratio 1.16 07/15/16 07:11 Urine Sodium 45 mEq/L 07/15/16 07:11 Urine Total Protein 166 mg/dL (5-11.8) H 07/15/16 07:11 Urine HCG, Qual Negative (Negative) 07/14/16 Unknown Random Vancomycin 22.6 ug/mL (0-40.0) 07/16/16 12:30 Urine Opiates Screen Presumptive negative 07/14/16 Unknown Urine Methadone Screen Presumptive negative 07/14/16 Unknown Ur Barbiturates Screen Presumptive negative 07/14/16 Unknown Ur Phencyclidine Scrn Presumptive negative 07/14/16 Unknown Ur Amphetamines Screen Presumptive negative 07/14/16 Unknown U Benzodiazepines Scrn Presumptive negative 07/14/16 Unknown Urine Cocaine Screen Presumptive negative 07/14/16 Unknown U Marijuana (THC) Screen Presumptive negative 07/14/16 Unknown Drugs of Abuse Note Disclamer 07/14/16 Unknown Proteinase 3 (PR3) Ab <1.0 AI (<1.0) 07/15/16 Unknown Myeloperoxidase Ab <1.0 AI (<1.0) 07/15/16 Unknown Complement C3 130 mg/dL (90-180) 07/15/16 Unknown Complement C4 14 mg/dL (16-47) L 07/15/16 Unknown Hepatitis A IgM Ab -1 (NonReactive) 07/15/16 Unknown Hep Bs Antigen Non-reactive (Negative) 07/15/16 Unknown Hep B Core IgM Ab Non-reactive (NonReactive) 07/15/16 Unknown Hepatitis C Antibody Non-reactive (NonReactive) 07/15/16 Unknown Blood Type B POSITIVE 07/14/16 16:00 Antibody Screen Negative 07/14/16 16:00 Crossmatch See Detail 07/14/16 16:00
[2016-07-17] MEDS: TYLENOL PO PRN ×2 (13:29→22:41)
[2016-07-17 23:53] LABS: Albumin 1.8 g/dL (3.8-4.8); Gamma Globulin 2.3 g/dL (0.8-1.7)
[2016-07-18] MEDS ORDERED: NACL 0.9% 500 ML 500 ML IV ONE (01:47)
[2016-07-18] MEDS ORDERED: MILK OF MAGNESIA PO ONE (08:18)
--- NOTE | 2016-07-18 08:19 | Progress Note ---
Hospitalist Physical - Constitutional Vitals: Temp Pulse Resp BP Pulse Ox 98.9 F 118 H 20 132/80 95 07/17/16 23:25 07/17/16 23:25 07/17/16 23:25 07/17/16 23:25 07/17/16 23:25 General appearance: Present: no acute distress, well-nourished Results - Labs CBC & Chem 7: 07/17/16 06:10 07/17/16 06:10 Labs: Laboratory Last Values WBC 10.9 K/mm3 (4.5-11.0) 07/17/16 06:10 RBC 2.71 M/mm3 (3.65-5.03) L 07/17/16 06:10 Hgb 7.0 gm/dl (10.1-14.3) L 07/17/16 06:10 Hct 21.1 % (30.3-42.9) L 07/17/16 06:10 MCV 78 fl (79-97) L 07/17/16 06:10 MCH 26 pg (28-32) L 07/17/16 06:10 MCHC 33 % (30-34) 07/17/16 06:10 RDW 14.5 % (13.2-15.2) 07/17/16 06:10 Plt Count 260 K/mm3 (140-440) 07/17/16 06:10 Lymph % (Auto) Practice Coordinator 07/15/16 Unknown Vance % (Auto) Practice Coordinator 07/15/16 Unknown Eos % (Auto) Practice Coordinator 07/15/16 Unknown Baso % (Auto) Practice Coordinator 07/15/16 Unknown Lymph # Practice Coordinator 07/15/16 Unknown Vance # Practice Coordinator 07/15/16 Unknown Eos # Practice Coordinator 07/15/16 Unknown Baso # Practice Coordinator 07/15/16 Unknown Add Manual Diff Complete 07/17/16 06:10 Total Counted 100 07/17/16 06:10 Seg Neutrophils % Practice Coordinator 07/15/16 Unknown Seg Neuts % (Manual) 94.0 % (40.0-70.0) H 07/17/16 06:10 Band Neutrophils % 1.0 % 07/17/16 06:10 Lymphocytes % (Manual) 3.0 % (13.4-35.0) L 07/17/16 06:10 Reactive Lymphs % (Man) 0 % 07/17/16 06:10 Monocytes % (Manual) 1.0 % (0.0-7.3) 07/17/16 06:10 Eosinophils % (Manual) 0 % (0.0-4.3) 07/17/16 06:10 Basophils % (Manual) 0 % (0.0-1.8) 07/17/16 06:10 Metamyelocytes % 1.0 % 07/17/16 06:10 Myelocytes % 0 % 07/17/16 06:10 Promyelocytes % 0 % 07/17/16 06:10 Blast Cells % 0 % 07/17/16 06:10 Nucleated RBC % Not Reportable 07/17/16 06:10 Seg Neutrophils # Practice Coordinator 07/15/16 Unknown Seg Neutrophils # Man 10.2 K/mm3 (1.8-7.7) H 07/17/16 06:10 Band Neutrophils # 0.1 K/mm3 07/17/16 06:10 Lymphocytes # (Manual) 0.3 K/mm3 (1.2-5.4) L 07/17/16 06:10 Abs React Lymphs (Man) 0.0 K/mm3 07/17/16 06:10 Monocytes # (Manual) 0.1 K/mm3 (0.0-0.8) 07/17/16 06:10 Eosinophils # (Manual) 0.0 K/mm3 (0.0-0.4) 07/17/16 06:10 Basophils # (Manual) 0.0 K/mm3 (0.0-0.1) 07/17/16 06:10 Metamyelocytes # 0.1 K/mm3 07/17/16 06:10 Myelocytes # 0.0 K/mm3 07/17/16 06:10 Promyelocytes # 0.0 K/mm3 07/17/16 06:10 Blast Cells # 0.0 K/mm3 07/17/16 06:10 WBC Morphology Not Reportable 07/17/16 06:10 Hypersegmented Neuts Not Reportable 07/17/16 06:10 Hyposegmented Neuts Not Reportable 07/17/16 06:10 Hypogranular Neuts Not Reportable 07/17/16 06:10 Smudge Cells Not Reportable 07/17/16 06:10 Toxic Granulation Not Reportable 07/17/16 06:10 Toxic Vacuolation Not Reportable 07/17/16 06:10 Dohle Bodies Not Reportable 07/17/16 06:10 Pelger-Huet Anomaly Not Reportable 07/17/16 06:10 Rishabh Rods Not Reportable 07/17/16 06:10 Platelet Estimate Appears normal 07/17/16 06:10 Clumped Platelets Not Reportable 07/17/16 06:10 Plt Clumps, EDTA Not Reportable 07/17/16 06:10 Large Platelets Not Reportable 07/17/16 06:10 Giant Platelets Not Reportable 07/17/16 06:10 Platelet Satelliting Not Reportable 07/17/16 06:10 Plt Morphology Comment Not Reportable 07/17/16 06:10 RBC Morphology Not Reportable 07/17/16 06:10 Dimorphic RBCs Not Reportable 07/17/16 06:10 Polychromasia Not Reportable 07/17/16 06:10 Hypochromasia 1+ 07/17/16 06:10 Poikilocytosis Not Reportable 07/17/16 06:10 Anisocytosis 1+ 07/17/16 06:10 Microcytosis 1+ 07/17/16 06:10 Macrocytosis Not Reportable 07/17/16 06:10 Spherocytes Not Reportable 07/17/16 06:10 Pappenheimer Bodies Not Reportable 07/17/16 06:10 Sickle Cells Not Reportable 07/17/16 06:10 Target Cells Not Reportable 07/17/16 06:10 Tear Drop Cells Rare 07/17/16 06:10 Ovalocytes 1+ 07/17/16 06:10 Helmet Cells Not Reportable 07/17/16 06:10 Hanna-Summers Bodies Not Reportable 07/17/16 06:10 [place] Rings Not Reportable 07/17/16 06:10 [place] Cells Not Reportable 07/17/16 06:10 Bite Cells Not Reportable 07/17/16 06:10 Crenated Cell Not Reportable 07/17/16 06:10 Elliptocytes Not Reportable 07/17/16 06:10 Acanthocytes (Spur) Not Reportable 07/17/16 06:10 Rouleaux Not Reportable 07/17/16 06:10 Hemoglobin C Crystals Not Reportable 07/17/16 06:10 Schistocytes Not Reportable 07/17/16 06:10 Malaria parasites Not Reportable 07/17/16 06:10 Stephen Bodies Not Reportable 07/17/16 06:10 Hem Pathologist Commnt No 07/17/16 06:10 PT 15.3 Sec. (12.2-14.9) H 07/14/16 14:33 INR 1.22 (0.87-1.13) H 07/14/16 14:33 APTT 30.8 Sec. (24.2-36.6) 07/14/16 14:33 POC ABG pH 7.345 (7.35-7.45) L 07/14/16 14:42 POC ABG pCO2 34.2 (35-45) L 07/14/16 14:42 POC ABG pO2 24 (80-105) L 07/14/16 14:42 POC ABG HCO3 18.6 07/14/16 14:42 POC ABG Total CO2 20 07/14/16 14:42 POC ABG O2 Sat 39 07/14/16 14:42 POC ABG Base Excess -7 07/14/16 14:42 FiO2 28 % 07/14/16 14:42 Sodium 134 mmol/L (137-145) L 07/17/16 06:10 Potassium 3.8 mmol/L (3.6-5.0) 07/17/16 06:10 Chloride 97.2 mmol/L (98-107) L 07/17/16 06:10 Carbon Dioxide 30 mmol/L (22-30) 07/17/16 06:10 Anion Gap 11 mmol/L 07/17/16 06:10 BUN 34 mg/dL (7-17) H 07/17/16 06:10 Creatinine 3.1 mg/dL (0.7-1.2) H 07/17/16 06:10 Estimated GFR 21 ml/min 07/17/16 06:10 BUN/Creatinine Ratio 10.96 % 07/17/16 06:10 Glucose 100 mg/dL (65-100) 07/17/16 06:10 POC Glucose 122 (70-105) H 07/16/16 11:56 Lactic Acid 1.6 mmol/L (0.7-2.0) 07/14/16 17:01 Calcium 8.2 mg/dL (8.4-10.2) L 07/17/16 06:10 Magnesium 1.7 mg/dL (1.7-2.3) 07/17/16 06:10 Total Bilirubin 2.1 mg/dL (0.1-1.2) H 07/14/16 14:33 Direct Bilirubin 1.5 mg/dL (0-0.2) H 07/14/16 14:33 Indirect Bilirubin 0.6 mg/dL 07/14/16 14:33 AST 32 units/L (5-40) 07/14/16 14:33 ALT 26 units/L (7-56) 07/14/16 14:33 Alkaline Phosphatase 166 units/L (35-129) H 07/14/16 14:33 Troponin T < 0.010 ng/mL (0.00-0.029) 07/14/16 14:33 NT-Pro-B Natriuret Pep 3986 pg/mL (0-450) H 07/14/16 14:33 Serum Total Protein 6.4 g/dL (6.1-8.1) 07/15/16 Unknown Total Protein 8.6 g/dL (6.3-8.2) H 07/14/16 14:33 Albumin 1.8 g/dL (3.8-4.8) L 07/15/16 Unknown Albumin/Globulin Ratio 0.4 % 07/14/16 14:33 Sialq-0-Ggjtcatxy 0.7 g/dL (0.2-0.3) H 07/15/16 Unknown Rrrbx-4-Ejxwzhppb 0.9 g/dL (0.5-0.9) 07/15/16 Unknown Beta Globulins 0.4 g/dL (0.2-0.5) 07/15/16 Unknown Gamma Globulins 2.3 g/dL (0.8-1.7) H 07/15/16 Unknown Abnorm Protein Band 1 see below (()) 07/15/16 Unknown PEP Interpretation see below (()) H 07/15/16 Unknown TSH 1.060 mlU/mL (0.270-4.200) 07/14/16 14:33 Free T4 1.21 ng/dL (0.76-1.46) 07/14/16 14:33 Urine Color Jen (Yellow) 07/15/16 07:11 Urine Turbidity Cloudy (Clear) 07/15/16 07:11 Urine pH 5.0 (5.0-7.0) 07/15/16 07:11 Ur Specific [place] 1.016 (1.003-1.030) 07/15/16 07:11 Urine Protein 30 mg/dl mg/dL (Negative) 07/15/16 07:11 Urine Glucose (UA) Neg mg/dL (Negative) 07/15/16 07:11 Urine Ketones Neg mg/dL (Negative) 07/15/16 07:11 Urine Blood Lg (Negative) 07/15/16 07:11 Urine Nitrite Neg (Negative) 07/15/16 07:11 Urine Bilirubin Neg (Negative) 07/15/16 07:11 Urine Ictotest Negative (Negative) 07/14/16 Unknown Urine Urobilinogen 4.0 mg/dL (<2.0) 07/15/16 07:11 Ur Leukocyte Esterase Sm (Negative) 07/15/16 07:11 Urine WBC (Auto) 15.0 /HPF (0.0-6.0) H 07/15/16 07:11 Urine RBC (Auto) 115.0 /HPF (0.0-6.0) 07/15/16 07:11 U Epithel Cells (Auto) < 1.0 /HPF (0-13.0) 07/15/16 07:11 Urine Bacteria (Auto) 2+ /HPF (Negative) 07/15/16 07:11 Urine WBC Clumps 3+ /HPF 07/14/16 Unknown Hyaline Casts 3 /LPF 07/15/16 07:11 Urine Mucus Few /HPF 07/15/16 07:11 Urine Eosinophils None seen (None Seen) 07/15/16 07:11 Urine Creatinine 143.6 mg/dL (0.1-20.0) H 07/15/16 07:11 Protein/Creatinin Ratio 1.16 07/15/16 07:11 Urine Sodium 45 mEq/L 07/15/16 07:11 Urine Total Protein 166 mg/dL (5-11.8) H 07/15/16 07:11 Urine HCG, Qual Negative (Negative) 07/14/16 Unknown Random Vancomycin 22.6 ug/mL (0-40.0) 07/16/16 12:30 Urine Opiates Screen Presumptive negative 07/14/16 Unknown Urine Methadone Screen Presumptive negative 07/14/16 Unknown Ur Barbiturates Screen Presumptive negative 07/14/16 Unknown Ur Phencyclidine Scrn Presumptive negative 07/14/16 Unknown Ur Amphetamines Screen Presumptive negative 07/14/16 Unknown U Benzodiazepines Scrn Presumptive negative 07/14/16 Unknown Urine Cocaine Screen Presumptive negative 07/14/16 Unknown U Marijuana (THC) Screen Presumptive negative 07/14/16 Unknown Drugs of Abuse Note Disclamer 07/14/16 Unknown Proteinase 3 (PR3) Ab <1.0 AI (<1.0) 07/15/16 Unknown Myeloperoxidase Ab <1.0 AI (<1.0) 07/15/16 Unknown Complement C3 130 mg/dL (90-180) 07/15/16 Unknown Complement C4 14 mg/dL (16-47) L 07/15/16 Unknown Hepatitis A IgM Ab -1 (NonReactive) 07/15/16 Unknown Hep Bs Antigen Non-reactive (Negative) 07/15/16 Unknown Hep B Core IgM Ab Non-reactive (NonReactive) 07/15/16 Unknown Hepatitis C Antibody Non-reactive (NonReactive) 07/15/16 Unknown Blood Type B POSITIVE 07/18/16 00:16 Antibody Screen Negative 07/18/16 00:16 Crossmatch See Detail 07/18/16 00:16
[2016-07-18] MEDS: DILAUDID IV PRN ×4 (09:06→21:19)
--- NOTE | 2016-07-18 09:17 | Progress Note ---
Assessment and Plan Impression: * Nonoliguric acute kidney injury secondary to ATN vs HIVAN * Sepsis secondary to haemophilus bacteremia * LLL pneumonia * HIV * Metabolic acidosis * Anemia Plan: * Patient w/ improved urine output; SCr trending down. Will hold hemodialysis for now. * Encourage po hydration * Transfuse pRBC per primary team * Abx per ID * Renal diet * Avoid potential nephrotoxins * Dose medications for renal function Subjective Date of service: 07/18/16 Principal diagnosis: Haemophilus pneumonia, Sepsis; + HIV, acute kidney injury Interval history: Patient c/o cough Objective - Vital Signs Vital signs: Vital Signs - 12hr 07/17/16 07/17/16 22:51 23:25 Temperature 98.9 F Pulse Rate [ 118 H Left] Respiratory 20 Rate Blood Pressure 132/80 [Left Arm] O2 Sat by Pulse 97 95 Oximetry - General Appearance General appearance: well-developed, well-nourished EENT: ATNC Respiratory: Present: Clear to Ascultation, Productive Cough Cardiology: regular, S1S2 Integumentary: no rash Neurologic: no focal deficit Musculoskeletal: other (trace edema) Psychiatric: cooperative - Lab 07/17/16 06:10 07/18/16 10:04 Most recent lab results Calcium 8.2 mg/dL (8.4-10.2) L 07/17/16 06:10 Magnesium 1.7 mg/dL (1.7-2.3) 07/17/16 06:10 Urine Creatinine 143.6 mg/dL (0.1-20.0) H 07/15/16 07:11 Urine Sodium 45 mEq/L 07/15/16 07:11 Urine Total Protein 166 mg/dL (5-11.8) H 07/15/16 07:11
--- NOTE | 2016-07-18 09:57 | XRay Report ---
CHEST X-RAY, 2 VIEWS: HISTORY: Chest pain. FINDINGS: There is poor inspiration. Bibasilar atelectasis and small pleural effusions are identified. The upper lung zones are clear. Heart size is within normal limits. A right IJ venous catheter terminates in the right atrium. IMPRESSION: Bibasilar infiltrates or atelectasis and small pleural effusions. ABDOMEN, 2 VIEWS: HISTORY: Abdominal pain. FINDINGS: Supine and upright views of the abdomen demonstrate a normal bowel gas pattern. No evidence for obstruction, pathologic calcifications or large free air. A right femoral catheter terminates at the level of L5-S1. IMPRESSION: No acute abdominal process.
[2016-07-18] MEDS ORDERED: MEROPENEM IV SCH (10:00)
[2016-07-18] MEDS ORDERED: SODIUM CHLORIDE IV SCH (10:00)
[2016-07-18] MEDS ORDERED: NACL 0.9% 500 ML 500 ML ONE (10:06)
--- NOTE | 2016-07-18 10:18 | Progress Note ---
Assessment and Plan Current antibiotics: Meropenem 1 g IV q24h 07/14 --> Vancomycin (pulse dose) IV 07/14 --> Previous antibiotics: Clindamycin 600 mg IV X 1 07/14 Antiretrovirals: (on hold now) Truvada 1 tab po q day Norvir 100 mg po q day Darunavir 800 mg po q day ASSESSMENT: Helga Carroll is a 31 y/o female with HIV infection, type 2 DM and asthma who was admitted to [facility] on 07/14 with a several day history of anterior chest pain, cough with occasional "greenish sputum production, subjective fevers and chills and was found to be hypotensive in the ED. She was also found to have MARY. Problem list: 1. Haemophilus influenzae bacteremia & sepsis -07/27 bottles from 07/14 positive -Repeat blood cultures 07/17 pending -Likely pulmonary or upper respiratory source -07/17 CXR with atelectasis but no definite pneumonia -Clinically improved 2. HIV infection -ARV therapy: Truvada, Norvir & darunavir -CD4 in the upper 200s and VL undetectable according to [facility] records 3. MARY -? secondary to #1 -HD initiated -? renal function improving 4. Leukocytosis -Secondary to #1 -Resolved 5. Penicillin allergy -"Tongue swells up" 6. Anemia PLAN: 1. Will switch to po Levaquin and follow 2. Continue to hold Truvada and darunavir/Norvir in light of her renal failure 4. Await results of repeat blood cultures from 07/17 to document clearance of the bacteremia 5. Continued supportive measures as are being done Mark Sanchez MD [facility] Office: [phone] Subjective Date of service: 07/18/16 Principal diagnosis: Sepsis; + HIV Interval history: Patient and family with multiple complaints about nursing care. States that she has "not received requested pain medication since 9:00 last night." They are asking to "be transferred to [facility] where care can be given." No other new complaints. ROS: No subjective fever or chills. No nausea, vomiting or diarrhea. No shortness of breath, cough or pleuritic chest pain Objective - Exam Narrative Exam: GENERAL: Well-developed, well-nourished appearing female who is alert and in no acute distress. She only appears mildly ill. Depressed affect. HEAD: Normocephalic. No lesions seen. EYES: Pupils are equal reactive to light and accommodation. There is no scleral icterus. Optic fundi are normal. EARS: Tympanic membranes are normal. THROAT: Oropharynx is normal with no evidence of oral candidiasis or pharyngitis. Mildly dry mucus membranes. NECK: Supple. No enlargement of the thyroid gland. No significant cervical lymphadenopathy. No jugular venous distention at 30. Right IJ Vas-Cath in place LUNGS: Clear with no adventitious sounds. CHEST: Mild tenderness over the right lateral chest with no other objective findings. HEART: Regular rate. S1 and S2 are normal. There are no murmurs, gallops, clicks or rubs heard. ABDOMEN: Soft, mildly distended and nontender. Liver and spleen are not palpably enlarged or tender. No palpable masses. Bowel sounds are normoactive. EXTREMITIES: No peripheral lymphadenopathy, clubbing or edema. SKIN: Multiple tattoos; no rash : Not examined. No Santiago. NEUROLOGIC: No focal findings. - Constitutional Vitals: Vital Signs Temp Pulse Resp BP Pulse Ox 99 F 107 H 20 135/79 99 07/18/16 08:00 07/18/16 08:00 07/18/16 08:00 07/18/16 08:00 07/18/16 08:00 Temperature -Last 24 Hours Temperature 99 F Temperature 98.9 F Temperature 99.2 F Temperature 102.7 F - Labs CBC & Chem 7: 07/17/16 06:10 07/18/16 10:04 Labs: Abnormal lab results Microbiology 07/14/16 14:33 Peripheral/Venous Blood Culture - Preliminary Haemophilus influenzae in 1/2 bottle so far 07/14/16 14:33 Peripheral/Venous Blood Culture - Preliminary Haemophilus influenzae in 1/2 bottles so far 07/14/16 14:20 Urine,Catheterized - Straight Catheter Urine Culture - Preliminary NO GROWTH AFTER 24 HOURS 07/18/16 10:04 Nasopharyngeal Swab Influenza Types A,B Antigen (TARA) - Negative Received records from [facility] and she was last seen in 11/2015 but no CD4 or viral load were done on that visit. Previous studies showed undetectable viral load and CD4 in the upper 200s. Imagin/25: Bibasilar infiltrates and small pulmonary effusions 07/14: CXR: Faint left lower lobe infiltrate
[2016-07-18] MEDS: TYLENOL PO PRN (10:20)
[2016-07-18 10:42] LABS: BUN/Creatinine Ratio 11.72; Calcium 8.1 mg/dL (8.4-10.2); Potassium 4.1 mmol/L (3.6-5.0)
[2016-07-18] MEDS: LEVAQUIN PO SCH (11:35)
--- NOTE | 2016-07-18 11:52 | Progress Note ---
Assessment and Plan A fib FVR episode. Controlled Pneumonia completing antibiotics. She also ID recommendations MARY on chronic. Improving HIV. 3 times a day recommendations, follow-up Rec Continue ABX. I will give him 7 days minimum antibiotic coverage Chest x-ray showed minimal changes. Positive with improvement of pneumonic process. We recommend that they just before discharge if the patient's symptoms required this. HIV treatment and follow-up per ID Will sign off reconsult as necessary. Subjective Date of service: 07/18/16 Principal diagnosis: Sepsis; + HIV Interval history: Some discomfort on the left base with breathing Objective Vital Signs - 12hr 07/18/16 07/18/16 08:00 10:32 Temperature 99 F Pulse Rate [ 107 H From Monitor] Respiratory 20 Rate Blood Pressure 135/79 [Left Arm] O2 Sat by Pulse 99 94 Oximetry Constitutional: no acute distress, alert Eyes: non-icteric ENT: oropharynx moist Ascultation: Bilateral: rales (bases posteriorly) Cardiovascular: regular rate and rhythm Integumentary: other (tattoos) Extremities: no cyanosis, no cyanosis, no cyanosis Neurologic: normal mental status, non-focal exam Psychiatric: mood appropriate, affect normal CBC and BMP: 07/17/16 06:10 07/18/16 10:04 ABG, PT/INR, D-dimer: ABG POC ABG pH 7.345 (7.35-7.45) L 07/14/16 14:42 POC ABG pCO2 34.2 (35-45) L 07/14/16 14:42 POC ABG pO2 24 (80-105) L 07/14/16 14:42 POC ABG HCO3 18.6 07/14/16 14:42 POC ABG Total CO2 20 07/14/16 14:42 POC ABG O2 Sat 39 07/14/16 14:42 PT/INR, D-dimer PT 15.3 Sec. (12.2-14.9) H 07/14/16 14:33 INR 1.22 (0.87-1.13) H 07/14/16 14:33 Abnormal lab findings: Abnormal Labs 07/15/16 07/15/16 07/15/16 07:11 07:11 21:32 WBC RBC Hgb Hct MCV MCH Seg Neuts % (Manual) Lymphocytes % (Manual) Seg Neutrophils # Man Lymphocytes # (Manual) Sodium Chloride BUN Creatinine Glucose POC Glucose 140 H Calcium Albumin Jfuiu-5-Fzenwgmqd Gamma Globulins PEP Interpretation Urine WBC (Auto) 15.0 H Urine Creatinine 143.6 H Urine Total Protein 166 H Complement C4 Crossmatch 07/15/16 07/15/16 07/15/16 Unknown Unknown Unknown WBC 19.0 H RBC 2.82 L Hgb 7.1 L Hct 21.6 L D MCV 77 L D MCH 25 L Seg Neuts % (Manual) 81.0 H Lymphocytes % (Manual) 5.0 L Seg Neutrophils # Man 15.4 H Lymphocytes # (Manual) 1.0 L Sodium 134 L Chloride 97.6 L BUN 104 H Creatinine 6.9 H Glucose POC Glucose Calcium 7.8 L Albumin Tpzll-5-Hzcdvureo Gamma Globulins PEP Interpretation Urine WBC (Auto) Urine Creatinine Urine Total Protein Complement C4 14 L Crossmatch 07/15/16 07/16/16 07/16/16 Unknown 06:00 06:00 WBC 15.6 H RBC 2.74 L Hgb 7.1 L Hct 21.3 L MCV 78 L MCH 26 L Seg Neuts % (Manual) 90.0 H Lymphocytes % (Manual) 4.0 L Seg Neutrophils # Man 14.0 H Lymphocytes # (Manual) 0.6 L Sodium 135 L Chloride 95.8 L BUN 70 H Creatinine 5.1 H Glucose 122 H POC Glucose Calcium 8.0 L Albumin 1.8 L Mdjks-4-Ubshksvse 0.7 H Gamma Globulins 2.3 H PEP Interpretation see below H Urine WBC (Auto) Urine Creatinine Urine Total Protein Complement C4 Crossmatch 07/16/16 07/16/16 07/17/16 07:29 11:56 06:10 WBC RBC 2.71 L Hgb 7.0 L Hct 21.1 L MCV 78 L MCH 26 L Seg Neuts % (Manual) 94.0 H Lymphocytes % (Manual) 3.0 L Seg Neutrophils # Man 10.2 H Lymphocytes # (Manual) 0.3 L Sodium Chloride BUN Creatinine Glucose POC Glucose 129 H 122 H Calcium Albumin Ygjsi-5-Qzkkhmavk Gamma Globulins PEP Interpretation Urine WBC (Auto) Urine Creatinine Urine Total Protein Complement C4 Crossmatch 07/17/16 07/18/16 07/18/16 06:10 00:16 10:04 WBC RBC Hgb Hct MCV MCH Seg Neuts % (Manual) Lymphocytes % (Manual) Seg Neutrophils # Man Lymphocytes # (Manual) Sodium 134 L 136 L Chloride 97.2 L BUN 34 H 34 H Creatinine 3.1 H 2.9 H Glucose POC Glucose Calcium 8.2 L 8.1 L Albumin Vqjgn-4-Uplvgkxeb Gamma Globulins PEP Interpretation Urine WBC (Auto) Urine Creatinine Urine Total Protein Complement C4 Crossmatch See Detail
[2016-07-18] MEDS: TESSALON PERLES PO PRN (12:42)
--- NOTE | 2016-07-18 15:00 | Progress Note ---
Assessment and Plan Assessment and plan: --Acute on chronic anemia Patient is receiving transfusion Closely monitor recheck H&H, transfuse additional PRBC --s/p septic shock, resolved --gram-negative bacteremia continue meropenem and vancomycin Repeat cultures negative to date ID following --Possible small left lower lobe pneumonia chest x-ray Continue current antibiotics follow cultures --Acute renal failure; nephrology following hemodialysis per schedule --History of HIV AIDS antiretrovirals are on hold in view of sepsis and acute renal failure --DVT prophylaxis with Lovenox DC planning. Case management Consults and recommendations noted and appreciated Plan of care discussed with the patient her nurse as well as the case management History Interval history: Patient seen and evaluated medical records reviewed Patient complains of constipation and mild abdominal pain Scheduled to receive 2 units of PRBC today End-stage renal disease on hemodialysis Patient is alert awake oriented 3 not in acute distress vital signs reviewed Hospitalist Physical - Constitutional Vitals: Temp Pulse Resp BP Pulse Ox 97.9 F 91 H 18 129/69 94 07/18/16 13:57 07/18/16 13:57 07/18/16 13:57 07/18/16 13:57 07/18/16 10:32 General appearance: Present: no acute distress, well-nourished - EENT Eyes: Present: PERRL, EOM intact - Neck Neck: Present: supple, normal ROM - Respiratory Respiratory effort: normal Respiratory: bilateral: diminished, negative: rales, rhonchi, wheezing - Cardiovascular Rhythm: regular Heart Sounds: Present: S1 & S2 - Extremities Extremities: no ischemia, pulses intact, pulses symmetrical Peripheral Pulses: within normal limits - Abdominal General gastrointestinal: soft, non-tender, non-distended, normal bowel sounds - Integumentary Integumentary: Present: clear, warm - Psychiatric Psychiatric: appropriate mood/affect, cooperative - Neurologic Neurologic: CNII-XII intact, moves all extremities Results - Labs CBC & Chem 7: 07/17/16 06:10 07/18/16 10:04 Labs: Laboratory Last Values WBC 10.9 K/mm3 (4.5-11.0) 07/17/16 06:10 RBC 2.71 M/mm3 (3.65-5.03) L 07/17/16 06:10 Hgb 7.0 gm/dl (10.1-14.3) L 07/17/16 06:10 Hct 21.1 % (30.3-42.9) L 07/17/16 06:10 MCV 78 fl (79-97) L 07/17/16 06:10 MCH 26 pg (28-32) L 07/17/16 06:10 MCHC 33 % (30-34) 07/17/16 06:10 RDW 14.5 % (13.2-15.2) 07/17/16 06:10 Plt Count 260 K/mm3 (140-440) 07/17/16 06:10 Lymph % (Auto) Admissions Specialist 07/15/16 Unknown [facility] % (Auto) Admissions Specialist 07/15/16 Unknown Eos % (Auto) Admissions Specialist 07/15/16 Unknown Baso % (Auto) Admissions Specialist 07/15/16 Unknown Lymph # Admissions Specialist 07/15/16 Unknown [facility] # Admissions Specialist 07/15/16 Unknown Eos # Admissions Specialist 07/15/16 Unknown Baso # Admissions Specialist 07/15/16 Unknown Add Manual Diff Complete 07/17/16 06:10 Total Counted 100 07/17/16 06:10 Seg Neutrophils % Admissions Specialist 07/15/16 Unknown Seg Neuts % (Manual) 94.0 % (40.0-70.0) H 07/17/16 06:10 Band Neutrophils % 1.0 % 07/17/16 06:10 Lymphocytes % (Manual) 3.0 % (13.4-35.0) L 07/17/16 06:10 Reactive Lymphs % (Man) 0 % 07/17/16 06:10 Monocytes % (Manual) 1.0 % (0.0-7.3) 07/17/16 06:10 Eosinophils % (Manual) 0 % (0.0-4.3) 07/17/16 06:10 Basophils % (Manual) 0 % (0.0-1.8) 07/17/16 06:10 Metamyelocytes % 1.0 % 07/17/16 06:10 Myelocytes % 0 % 07/17/16 06:10 Promyelocytes % 0 % 07/17/16 06:10 Blast Cells % 0 % 07/17/16 06:10 Nucleated RBC % Not Reportable 07/17/16 06:10 Seg Neutrophils # Admissions Specialist 07/15/16 Unknown Seg Neutrophils # Man 10.2 K/mm3 (1.8-7.7) H 07/17/16 06:10 Band Neutrophils # 0.1 K/mm3 07/17/16 06:10 Lymphocytes # (Manual) 0.3 K/mm3 (1.2-5.4) L 07/17/16 06:10 Abs React Lymphs (Man) 0.0 K/mm3 07/17/16 06:10 Monocytes # (Manual) 0.1 K/mm3 (0.0-0.8) 07/17/16 06:10 Eosinophils # (Manual) 0.0 K/mm3 (0.0-0.4) 07/17/16 06:10 Basophils # (Manual) 0.0 K/mm3 (0.0-0.1) 07/17/16 06:10 Metamyelocytes # 0.1 K/mm3 07/17/16 06:10 Myelocytes # 0.0 K/mm3 07/17/16 06:10 Promyelocytes # 0.0 K/mm3 07/17/16 06:10 Blast Cells # 0.0 K/mm3 07/17/16 06:10 WBC Morphology Not Reportable 07/17/16 06:10 Hypersegmented Neuts Not Reportable 07/17/16 06:10 Hyposegmented Neuts Not Reportable 07/17/16 06:10 Hypogranular Neuts Not Reportable 07/17/16 06:10 Smudge Cells Not Reportable 07/17/16 06:10 Toxic Granulation Not Reportable 07/17/16 06:10 Toxic Vacuolation Not Reportable 07/17/16 06:10 Dohle Bodies Not Reportable 07/17/16 06:10 Pelger-Huet Anomaly Not Reportable 07/17/16 06:10 Rishabh Rods Not Reportable 07/17/16 06:10 Platelet Estimate Appears normal 07/17/16 06:10 Clumped Platelets Not Reportable 07/17/16 06:10 Plt Clumps, EDTA Not Reportable 07/17/16 06:10 Large Platelets Not Reportable 07/17/16 06:10 Giant Platelets Not Reportable 07/17/16 06:10 Platelet Satelliting Not Reportable 07/17/16 06:10 Plt Morphology Comment Not Reportable 07/17/16 06:10 RBC Morphology Not Reportable 07/17/16 06:10 Dimorphic RBCs Not Reportable 07/17/16 06:10 Polychromasia Not Reportable 07/17/16 06:10 Hypochromasia 1+ 07/17/16 06:10 Poikilocytosis Not Reportable 07/17/16 06:10 Anisocytosis 1+ 07/17/16 06:10 Microcytosis 1+ 07/17/16 06:10 Macrocytosis Not Reportable 07/17/16 06:10 Spherocytes Not Reportable 07/17/16 06:10 Pappenheimer Bodies Not Reportable 07/17/16 06:10 Sickle Cells Not Reportable 07/17/16 06:10 Target Cells Not Reportable 07/17/16 06:10 Tear Drop Cells Rare 07/17/16 06:10 Ovalocytes 1+ 07/17/16 06:10 Helmet Cells Not Reportable 07/17/16 06:10 Hanna-Fitzpatrick Bodies Not Reportable 07/17/16 06:10 [place] Rings Not Reportable 07/17/16 06:10 [place] Cells Not Reportable 07/17/16 06:10 Bite Cells Not Reportable 07/17/16 06:10 Crenated Cell Not Reportable 07/17/16 06:10 Elliptocytes Not Reportable 07/17/16 06:10 Acanthocytes (Spur) Not Reportable 07/17/16 06:10 Rouleaux Not Reportable 07/17/16 06:10 Hemoglobin C Crystals Not Reportable 07/17/16 06:10 Schistocytes Not Reportable 07/17/16 06:10 Malaria parasites Not Reportable 07/17/16 06:10 Stephen Bodies Not Reportable 07/17/16 06:10 Hem Pathologist Commnt No 07/17/16 06:10 PT 15.3 Sec. (12.2-14.9) H 07/14/16 14:33 INR 1.22 (0.87-1.13) H 07/14/16 14:33 APTT 30.8 Sec. (24.2-36.6) 07/14/16 14:33 POC ABG pH 7.345 (7.35-7.45) L 07/14/16 14:42 POC ABG pCO2 34.2 (35-45) L 07/14/16 14:42 POC ABG pO2 24 (80-105) L 07/14/16 14:42 POC ABG HCO3 18.6 07/14/16 14:42 POC ABG Total CO2 20 07/14/16 14:42 POC ABG O2 Sat 39 07/14/16 14:42 POC ABG Base Excess -7 07/14/16 14:42 FiO2 28 % 07/14/16 14:42 Sodium 136 mmol/L (137-145) L 07/18/16 10:04 Potassium 4.1 mmol/L (3.6-5.0) 07/18/16 10:04 Chloride 98.0 mmol/L (98-107) 07/18/16 10:04 Carbon Dioxide 27 mmol/L (22-30) 07/18/16 10:04 Anion Gap 15 mmol/L 07/18/16 10:04 BUN 34 mg/dL (7-17) H 07/18/16 10:04 Creatinine 2.9 mg/dL (0.7-1.2) H 07/18/16 10:04 Estimated GFR 23 ml/min 07/18/16 10:04 BUN/Creatinine Ratio 11.72 % 07/18/16 10:04 Glucose 94 mg/dL (65-100) 07/18/16 10:04 POC Glucose 122 (70-105) H 07/16/16 11:56 Lactic Acid 1.6 mmol/L (0.7-2.0) 07/14/16 17:01 Calcium 8.1 mg/dL (8.4-10.2) L 07/18/16 10:04 Magnesium 1.7 mg/dL (1.7-2.3) 07/17/16 06:10 Total Bilirubin 2.1 mg/dL (0.1-1.2) H 07/14/16 14:33 Direct Bilirubin 1.5 mg/dL (0-0.2) H 07/14/16 14:33 Indirect Bilirubin 0.6 mg/dL 07/14/16 14:33 AST 32 units/L (5-40) 07/14/16 14:33 ALT 26 units/L (7-56) 07/14/16 14:33 Alkaline Phosphatase 166 units/L (35-129) H 07/14/16 14:33 Troponin T < 0.010 ng/mL (0.00-0.029) 07/14/16 14:33 NT-Pro-B Natriuret Pep 3986 pg/mL (0-450) H 07/14/16 14:33 Serum Total Protein 6.4 g/dL (6.1-8.1) 07/15/16 Unknown Total Protein 8.6 g/dL (6.3-8.2) H 07/14/16 14:33 Albumin 1.8 g/dL (3.8-4.8) L 07/15/16 Unknown Albumin/Globulin Ratio 0.4 % 07/14/16 14:33 Xccjo-3-Kkicxewap 0.7 g/dL (0.2-0.3) H 07/15/16 Unknown Brdha-7-Bjkapqjmq 0.9 g/dL (0.5-0.9) 07/15/16 Unknown Beta Globulins 0.4 g/dL (0.2-0.5) 07/15/16 Unknown Gamma Globulins 2.3 g/dL (0.8-1.7) H 07/15/16 Unknown Abnorm Protein Band 1 see below (()) 07/15/16 Unknown PEP Interpretation see below (()) H 07/15/16 Unknown TSH 1.060 mlU/mL (0.270-4.200) 07/14/16 14:33 Free T4 1.21 ng/dL (0.76-1.46) 07/14/16 14:33 Urine Color Jen (Yellow) 07/15/16 07:11 Urine Turbidity Cloudy (Clear) 07/15/16 07:11 Urine pH 5.0 (5.0-7.0) 07/15/16 07:11 Ur Specific Oxly 1.016 (1.003-1.030) 07/15/16 07:11 Urine Protein 30 mg/dl mg/dL (Negative) 07/15/16 07:11 Urine Glucose (UA) Neg mg/dL (Negative) 07/15/16 07:11 Urine Ketones Neg mg/dL (Negative) 07/15/16 07:11 Urine Blood Lg (Negative) 07/15/16 07:11 Urine Nitrite Neg (Negative) 07/15/16 07:11 Urine Bilirubin Neg (Negative) 07/15/16 07:11 Urine Ictotest Negative (Negative) 07/14/16 Unknown Urine Urobilinogen 4.0 mg/dL (<2.0) 07/15/16 07:11 Ur Leukocyte Esterase Sm (Negative) 07/15/16 07:11 Urine WBC (Auto) 15.0 /HPF (0.0-6.0) H 07/15/16 07:11 Urine RBC (Auto) 115.0 /HPF (0.0-6.0) 07/15/16 07:11 U Epithel Cells (Auto) < 1.0 /HPF (0-13.0) 07/15/16 07:11 Urine Bacteria (Auto) 2+ /HPF (Negative) 07/15/16 07:11 Urine WBC Clumps 3+ /HPF 07/14/16 Unknown Hyaline Casts 3 /LPF 07/15/16 07:11 Urine Mucus Few /HPF 07/15/16 07:11 Urine Eosinophils None seen (None Seen) 07/15/16 07:11 Urine Creatinine 143.6 mg/dL (0.1-20.0) H 07/15/16 07:11 Protein/Creatinin Ratio 1.16 07/15/16 07:11 Urine Sodium 45 mEq/L 07/15/16 07:11 Urine Total Protein 166 mg/dL (5-11.8) H 07/15/16 07:11 Urine HCG, Qual Negative (Negative) 07/14/16 Unknown Random Vancomycin 22.6 ug/mL (0-40.0) 07/16/16 12:30 Urine Opiates Screen Presumptive negative 07/14/16 Unknown Urine Methadone Screen Presumptive negative 07/14/16 Unknown Ur Barbiturates Screen Presumptive negative 07/14/16 Unknown Ur Phencyclidine Scrn Presumptive negative 07/14/16 Unknown Ur Amphetamines Screen Presumptive negative 07/14/16 Unknown U Benzodiazepines Scrn Presumptive negative 07/14/16 Unknown Urine Cocaine Screen Presumptive negative 07/14/16 Unknown U Marijuana (THC) Screen Presumptive negative 07/14/16 Unknown Drugs of Abuse Note Disclamer 07/14/16 Unknown Proteinase 3 (PR3) Ab <1.0 AI (<1.0) 07/15/16 Unknown Myeloperoxidase Ab <1.0 AI (<1.0) 07/15/16 Unknown Complement C3 130 mg/dL (90-180) 07/15/16 Unknown Complement C4 14 mg/dL (16-47) L 01/23/17 Unknown Hepatitis A IgM Ab -1 (NonReactive) 07/15/16 Unknown Hep Bs Antigen Non-reactive (Negative) 07/15/16 Unknown Hep B Core IgM Ab Non-reactive (NonReactive) 07/15/16 Unknown Hepatitis C Antibody Non-reactive (NonReactive) 07/15/16 Unknown Blood Type B POSITIVE 07/18/16 00:16 Antibody Screen Negative 07/18/16 00:16 Crossmatch See Detail 07/18/16 00:16
[2016-07-18] MEDS: ZOFRAN IV PRN (17:55)
[2016-07-19] MEDS: DILAUDID IV PRN ×5 (02:08→20:15)
[2016-07-19] MEDS: ZOFRAN IV PRN (07:00)
[2016-07-19 07:02] LABS: Hematocrit 25.7 % (30.3-42.9); Hemoglobin 8.6 gm/dl (10.1-14.3); Mean Corpuscular HGB Conc 34 % (30-34); Mean Corpuscular Hemoglobin 26 pg (28-32); Mean Corpuscular Volume 77 fl (79-97); Platelet Count 209 K/mm3 (140-440); Red Blood Count 3.33 M/mm3 (3.65-5.03); Red Cell Distribution Width 14.1 % (13.2-15.2); White Blood Count 6.2 K/mm3 (4.5-11.0)
[2016-07-19 07:05] LABS: BUN/Creatinine Ratio 13.04; Calcium 8.2 mg/dL (8.4-10.2); Chloride 99.2 mmol/L (98-107); Potassium 4.3 mmol/L (3.6-5.0)
[2016-07-19 08:54] LABS: Anisocytosis 1+; Basophils % (Manual) 0 % (0.0-1.8); Blastocytes % (Manual) 0 %; Eosinophils % (Manual) 0 % (0.0-4.3); Microcytosis 1+
[2016-07-19 08:55] LABS: Diff Status Complete; Hypochromasia 1+; Ovalocytes 1+; Tear Drop Cells Rare
--- NOTE | 2016-07-19 11:09 | Progress Note ---
Assessment and Plan Impression: * Nonoliguric acute kidney injury secondary to ATN vs HIVAN * Sepsis secondary to haemophilus bacteremia * LLL pneumonia * HIV * Metabolic acidosis * Anemia Plan: * Patient w/ improved urine output; SCr trending down. * Will continue to hold hemodialysis for now. * If patient's renal function continues to improve, most likely we can remove the Vas-Cath tomorrow * Encourage po hydration * Transfuse pRBC per primary team * Abx per ID * Renal diet * Avoid potential nephrotoxins * Dose medications for renal function Subjective Date of service: 07/19/16 Principal diagnosis: Haemophilus pneumonia, Sepsis; + HIV, acute kidney injury Interval history: Patient still complains of abdominal discomfort. No nausea or vomiting. However her appetite is somewhat poor Objective - Vital Signs Vital signs: Vital Signs - 12hr 07/18/16 07/19/16 07/19/16 23:12 08:15 09:12 Temperature 98.7 F 99.4 F Pulse Rate [ 87 Left Radial] Pulse Rate [ 94 H Left] Respiratory 20 18 Rate Blood Pressure 128/86 133/82 [Left Arm] O2 Sat by Pulse 97 99 97 Oximetry - General Appearance General appearance: well-developed, well-nourished, appears stated age EENT: PERRL, mucous membranes moist Neck: no JVD, no thyromegaly, no carotid bruit, supple, other (right IJ Vas- Cath in place) Respiratory: Present: Clear to Ascultation Cardiology: regular, normal heart rate, S1S2, no murmurs Gastrointestinal: normal, normoactive bowel sounds, tenderness (mild tenderness in the left lower quadrant area on deep palpation) Integumentary: no rash, other (no edema) - Lab 07/19/16 06:36 07/19/16 06:36 Most recent lab results Calcium 8.2 mg/dL (8.4-10.2) L 07/19/16 06:36 Magnesium 1.7 mg/dL (1.7-2.3) 07/17/16 06:10 Urine Creatinine 143.6 mg/dL (0.1-20.0) H 07/15/16 07:11 Urine Sodium 45 mEq/L 07/15/16 07:11 Urine Total Protein 166 mg/dL (5-11.8) H 07/15/16 07:11
--- NOTE | 2016-07-19 11:46 | Progress Note ---
Assessment and Plan Current antibiotics: Levaquin 500 mg po Q48Hr ( 07/18 - > Previous antibiotics: Meropenem 1 g IV every 24 hour ( 07/14 - 07/18) Vancomycin IV ( 07/14 - 07/18) Clindamycin 600 mg IV X 1 07/14 Antiretrovirals: (on hold now) Truvada 1 tab po q day Norvir 100 mg po q day Darunavir 800 mg po q day ASSESSMENT: Helga Carroll is a 31 y/o female with HIV infection, type 2 DM and asthma who was admitted to [facility] on 07/14 with a several day history of anterior chest pain, cough with occasional "greenish sputum production, subjective fevers and chills and was found to be hypotensive in the ED. She was also found to have MARY. Problem list: 1. Haemophilus influenzae bacteremia & sepsis -07/27 bottles from 07/14 positive -Repeat blood cultures 07/17 - NGTD -Likely pulmonary or upper respiratory source -07/17 CXR with atelectasis but no definite pneumonia -Clinically improved 2. HIV infection -ARV therapy: Truvada, Norvir & darunavir -CD4 in the upper 200s and VL undetectable according to [facility] records 3. MARY -? secondary to #1 -HD initiated -? renal function improving 4. Leukocytosis -Secondary to #1 -Resolved 5. Penicillin allergy -"Tongue swells up" 6. Anemia PLAN: 1. Continu po Levaquin and follow 2. Continue to hold Truvada and darunavir/Norvir in light of her renal failure 3. Continued supportive measures as are being done Subjective Date of service: 07/19/16 Principal diagnosis: Haemophilus pneumonia, Sepsis; + HIV, acute kidney injury Interval history: Describes chest pain with deep inspiration. Objective - Exam Narrative Exam: HEENT: Pupils are equal reactive to light and accommodation. Conjunctiva clear. Oropharynx is normal with no evidence of oral candidiasis or pharyngitis. NECK: Supple. No enlargement of the thyroid gland. No significant cervical lymphadenopathy. No jugular venous distention at 30. LUNGS: Fine crackles with decreased breath sounds at bases. HEART: Regular rate. S1 and S2 are normal. There are no murmurs, gallops, clicks or rubs heard. ABDOMEN: Soft and nontender. Liver and spleen are not palpably enlarged or tender. No palpable masses. Bowel sounds are normoactive. Santiago catheter in place. EXTREMITIES: No rash, peripheral lymphadenopathy, clubbing or edema. SKIN: No other rash, ulcers or wounds. Right chest wall line dressings clean. NEUROLOGIC: No focal findings. - Constitutional Vitals: Vital Signs Temp Pulse Resp BP Pulse Ox 99.4 F 87 18 133/82 97 07/19/16 08:15 07/19/16 08:15 07/19/16 08:15 07/19/16 08:15 07/19/16 09:12 Temperature -Last 24 Hours Temperature 99.4 F Temperature 98.7 F Temperature 98.3 F Temperature 98.4 F Temperature 97.5 F Temperature 98.3 F Temperature 98.4 F Temperature 98.2 F Temperature 98.3 F Temperature 98.3 F Temperature 98.3 F Temperature 97.9 F Temperature 97.9 F Temperature 98.3 F Temperature 98.8 F - Labs CBC & Chem 7: 07/19/16 06:36 07/19/16 06:36 Labs: Abnormal lab results 07/18/16 07/19/16 07/19/16 Range/Units 00:16 06:36 06:36 RBC 3.33 L (3.65-5.03) M/mm3 Hgb 8.6 L (10.1-14.3) gm/dl Hct 25.7 L (30.3-42.9) % MCV 77 L (79-97) fl MCH 26 L (28-32) pg Seg Neuts % (Manual) 80.0 H (40.0-70.0) % Lymphocytes % (Manual) 4.0 L (13.4-35.0) % Monocytes % (Manual) 9.0 H (0.0-7.3) % Lymphocytes # (Manual) 0.2 L (1.2-5.4) K/mm3 Sodium 135 L (137-145) mmol/L BUN 30 H (7-17) mg/dL Creatinine 2.3 H (0.7-1.2) mg/dL Calcium 8.2 L (8.4-10.2) mg/dL Crossmatch See Detail
--- NOTE | 2016-07-19 18:21 | Progress Note ---
Assessment and Plan Assessment and plan: --s/p septic shock, resolved --gram-negative bacteremia Received 5 days of vancomycin and meropenem continue oral Levaquin, Repeat cultures negative to date ID following --Acute on chronic anemia Disposed 2 units PRBC transfusion Mild improvement of H&H --Possible small left lower lobe pneumonia chest x-ray Continue current antibiotics follow cultures --Acute renal failure; nephrology following hemodialysis per schedule --History of HIV AIDS antiretrovirals are on hold in view of sepsis and acute renal failure --DVT prophylaxis with Lovenox DC planning. Case management Consults and recommendations noted and appreciated Plan of care discussed with the patient her nurse as well as the case management Possible discharge in 1-2 days if stable History Interval history: patient seen and evaluated in her room medical records reviewed Patient complains of pain and requests pain medications Alert awake oriented 3 not in acute distress Vital signs reviewed Hospitalist Physical - Constitutional Vitals: Temp Pulse Resp BP Pulse Ox 100.2 F H 91 H 20 145/94 97 07/19/16 16:00 07/19/16 16:00 07/19/16 16:00 07/19/16 16:00 07/19/16 09:12 General appearance: Present: no acute distress, well-nourished - EENT Eyes: Present: PERRL, EOM intact - Neck Neck: Present: supple, normal ROM - Respiratory Respiratory effort: normal Respiratory: negative: rales, rhonchi, wheezing - Cardiovascular Rhythm: regular Heart Sounds: Present: S1 & S2 - Extremities Extremities: no ischemia, pulses intact, pulses symmetrical Peripheral Pulses: within normal limits - Abdominal General gastrointestinal: soft, non-tender, non-distended, normal bowel sounds - Integumentary Integumentary: Present: clear, warm - Psychiatric Psychiatric: appropriate mood/affect, cooperative - Neurologic Neurologic: CNII-XII intact, moves all extremities Results - Labs CBC & Chem 7: 07/19/16 06:36 07/19/16 06:36 Labs: Laboratory Last Values WBC 6.2 K/mm3 (4.5-11.0) 07/19/16 06:36 RBC 3.33 M/mm3 (3.65-5.03) L 07/19/16 06:36 Hgb 8.6 gm/dl (10.1-14.3) L 07/19/16 06:36 Hct 25.7 % (30.3-42.9) L 07/19/16 06:36 MCV 77 fl (79-97) L 07/19/16 06:36 MCH 26 pg (28-32) L 07/19/16 06:36 MCHC 34 % (30-34) 07/19/16 06:36 RDW 14.1 % (13.2-15.2) 07/19/16 06:36 Plt Count 209 K/mm3 (140-440) 07/19/16 06:36 Lymph % (Auto) Roof Panel Hanger 07/15/16 Unknown Starke % (Auto) Roof Panel Hanger 07/15/16 Unknown Eos % (Auto) Roof Panel Hanger 07/15/16 Unknown Baso % (Auto) Roof Panel Hanger 07/15/16 Unknown Lymph # Roof Panel Hanger 07/15/16 Unknown Starke # Roof Panel Hanger 07/15/16 Unknown Eos # Roof Panel Hanger 07/15/16 Unknown Baso # Roof Panel Hanger 07/15/16 Unknown Add Manual Diff Complete 07/19/16 06:36 Total Counted 100 07/19/16 06:36 Seg Neutrophils % Roof Panel Hanger 07/15/16 Unknown Seg Neuts % (Manual) 80.0 % (40.0-70.0) H 07/19/16 06:36 Band Neutrophils % 2.0 % 07/19/16 06:36 Lymphocytes % (Manual) 4.0 % (13.4-35.0) L 07/19/16 06:36 Reactive Lymphs % (Man) 0 % 07/19/16 06:36 Monocytes % (Manual) 9.0 % (0.0-7.3) H 07/19/16 06:36 Eosinophils % (Manual) 0 % (0.0-4.3) 07/19/16 06:36 Basophils % (Manual) 0 % (0.0-1.8) 07/19/16 06:36 Metamyelocytes % 4.0 % 07/19/16 06:36 Myelocytes % 1.0 % 07/19/16 06:36 Promyelocytes % 0 % 07/19/16 06:36 Blast Cells % 0 % 07/19/16 06:36 Nucleated RBC % Not Reportable 07/19/16 06:36 Seg Neutrophils # Roof Panel Hanger 07/15/16 Unknown Seg Neutrophils # Man 5.0 K/mm3 (1.8-7.7) 07/19/16 06:36 Band Neutrophils # 0.1 K/mm3 07/19/16 06:36 Lymphocytes # (Manual) 0.2 K/mm3 (1.2-5.4) L 07/19/16 06:36 Abs React Lymphs (Man) 0.0 K/mm3 07/19/16 06:36 Monocytes # (Manual) 0.6 K/mm3 (0.0-0.8) 07/19/16 06:36 Eosinophils # (Manual) 0.0 K/mm3 (0.0-0.4) 07/19/16 06:36 Basophils # (Manual) 0.0 K/mm3 (0.0-0.1) 07/19/16 06:36 Metamyelocytes # 0.2 K/mm3 07/19/16 06:36 Myelocytes # 0.1 K/mm3 07/19/16 06:36 Promyelocytes # 0.0 K/mm3 07/19/16 06:36 Blast Cells # 0.0 K/mm3 07/19/16 06:36 WBC Morphology Not Reportable 07/19/16 06:36 Hypersegmented Neuts Not Reportable 07/19/16 06:36 Hyposegmented Neuts Not Reportable 07/19/16 06:36 Hypogranular Neuts Not Reportable 07/19/16 06:36 Smudge Cells Not Reportable 07/19/16 06:36 Toxic Granulation Not Reportable 07/19/16 06:36 Toxic Vacuolation Not Reportable 07/19/16 06:36 Dohle Bodies Not Reportable 07/19/16 06:36 Pelger-Huet Anomaly Not Reportable 07/19/16 06:36 Rishabh Rods Not Reportable 07/19/16 06:36 Platelet Estimate Appears normal 07/19/16 06:36 Clumped Platelets Not Reportable 07/19/16 06:36 Plt Clumps, EDTA Not Reportable 07/19/16 06:36 Large Platelets Not Reportable 07/19/16 06:36 Giant Platelets Not Reportable 07/19/16 06:36 Platelet Satelliting Not Reportable 07/19/16 06:36 Plt Morphology Comment Not Reportable 07/19/16 06:36 RBC Morphology Not Reportable 07/19/16 06:36 Dimorphic RBCs Not Reportable 07/19/16 06:36 Polychromasia Not Reportable 07/19/16 06:36 Hypochromasia 1+ 07/19/16 06:36 Poikilocytosis Not Reportable 07/19/16 06:36 Anisocytosis 1+ 07/19/16 06:36 Microcytosis 1+ 07/19/16 06:36 Macrocytosis Not Reportable 07/19/16 06:36 Spherocytes Not Reportable 07/19/16 06:36 Pappenheimer Bodies Not Reportable 07/19/16 06:36 Sickle Cells Not Reportable 07/19/16 06:36 Target Cells Not Reportable 07/19/16 06:36 Tear Drop Cells Rare 07/19/16 06:36 Ovalocytes 1+ 07/19/16 06:36 Helmet Cells Not Reportable 07/19/16 06:36 [place]anna-[place] Bodies Not Reportable 07/19/16 06:36 [place] Rings Not Reportable 07/19/16 06:36 Augusto Cells Not Reportable 07/19/16 06:36 Bite Cells Not Reportable 07/19/16 06:36 Crenated Cell Not Reportable 07/19/16 06:36 Elliptocytes Not Reportable 07/19/16 06:36 Acanthocytes (Spur) Not Reportable 07/19/16 06:36 Rouleaux Not Reportable 07/19/16 06:36 Hemoglobin C Crystals Not Reportable 07/19/16 06:36 Schistocytes Not Reportable 07/19/16 06:36 Malaria parasites Not Reportable 07/19/16 06:36 Stephen Bodies Not Reportable 07/19/16 06:36 Hem Pathologist Commnt No 07/19/16 06:36 PT 15.3 Sec. (12.2-14.9) H 07/14/16 14:33 INR 1.22 (0.87-1.13) H 07/14/16 14:33 APTT 30.8 Sec. (24.2-36.6) 07/14/16 14:33 POC ABG pH 7.345 (7.35-7.45) L 07/14/16 14:42 POC ABG pCO2 34.2 (35-45) L 07/14/16 14:42 POC ABG pO2 24 (80-105) L 07/14/16 14:42 POC ABG HCO3 18.6 07/14/16 14:42 POC ABG Total CO2 20 07/14/16 14:42 POC ABG O2 Sat 39 07/14/16 14:42 POC ABG Base Excess -7 07/14/16 14:42 FiO2 28 % 07/14/16 14:42 Sodium 135 mmol/L (137-145) L 07/19/16 06:36 Potassium 4.3 mmol/L (3.6-5.0) 07/19/16 06:36 Chloride 99.2 mmol/L (98-107) 07/19/16 06:36 Carbon Dioxide 26 mmol/L (22-30) 07/19/16 06:36 Anion Gap 14 mmol/L 07/19/16 06:36 BUN 30 mg/dL (7-17) H 07/19/16 06:36 Creatinine 2.3 mg/dL (0.7-1.2) H 07/19/16 06:36 Estimated GFR 30 ml/min 07/19/16 06:36 BUN/Creatinine Ratio 13.04 % 07/19/16 06:36 Glucose 95 mg/dL (65-100) 07/19/16 06:36 POC Glucose 122 (70-105) H 07/16/16 11:56 Lactic Acid 1.6 mmol/L (0.7-2.0) 07/14/16 17:01 Calcium 8.2 mg/dL (8.4-10.2) L 07/19/16 06:36 Magnesium 1.7 mg/dL (1.7-2.3) 07/17/16 06:10 Total Bilirubin 2.1 mg/dL (0.1-1.2) H 07/14/16 14:33 Direct Bilirubin 1.5 mg/dL (0-0.2) H 07/14/16 14:33 Indirect Bilirubin 0.6 mg/dL 07/14/16 14:33 AST 32 units/L (5-40) 07/14/16 14:33 ALT 26 units/L (7-56) 07/14/16 14:33 Alkaline Phosphatase 166 units/L (35-129) H 07/14/16 14:33 Troponin T < 0.010 ng/mL (0.00-0.029) 07/14/16 14:33 NT-Pro-B Natriuret Pep 3986 pg/mL (0-450) H 07/14/16 14:33 Serum Total Protein 6.4 g/dL (6.1-8.1) 07/15/16 Unknown Total Protein 8.6 g/dL (6.3-8.2) H 07/14/16 14:33 Albumin 1.8 g/dL (3.8-4.8) L 07/15/16 Unknown Albumin/Globulin Ratio 0.4 % 07/14/16 14:33 Mflbo-9-Futjftryq 0.7 g/dL (0.2-0.3) H 07/15/16 Unknown Clikt-7-Pykmxlwsj 0.9 g/dL (0.5-0.9) 07/15/16 Unknown Beta Globulins 0.4 g/dL (0.2-0.5) 07/15/16 Unknown Gamma Globulins 2.3 g/dL (0.8-1.7) H 07/15/16 Unknown Abnorm Protein Band 1 see below (()) 07/15/16 Unknown PEP Interpretation see below (()) H 07/15/16 Unknown TSH 1.060 mlU/mL (0.270-4.200) 07/14/16 14:33 Free T4 1.21 ng/dL (0.76-1.46) 07/14/16 14:33 Urine Color Jen (Yellow) 07/15/16 07:11 Urine Turbidity Cloudy (Clear) 07/15/16 07:11 Urine pH 5.0 (5.0-7.0) 07/15/16 07:11 Ur Specific [place] 1.016 (1.003-1.030) 07/15/16 07:11 Urine Protein 30 mg/dl mg/dL (Negative) 07/15/16 07:11 Urine Glucose (UA) Neg mg/dL (Negative) 07/15/16 07:11 Urine Ketones Neg mg/dL (Negative) 07/15/16 07:11 Urine Blood Lg (Negative) 07/15/16 07:11 Urine Nitrite Neg (Negative) 07/15/16 07:11 Urine Bilirubin Neg (Negative) 07/15/16 07:11 Urine Ictotest Negative (Negative) 07/14/16 Unknown Urine Urobilinogen 4.0 mg/dL (<2.0) 07/15/16 07:11 Ur Leukocyte Esterase Sm (Negative) 07/15/16 07:11 Urine WBC (Auto) 15.0 /HPF (0.0-6.0) H 07/15/16 07:11 Urine RBC (Auto) 115.0 /HPF (0.0-6.0) 07/15/16 07:11 U Epithel Cells (Auto) < 1.0 /HPF (0-13.0) 07/15/16 07:11 Urine Bacteria (Auto) 2+ /HPF (Negative) 07/15/16 07:11 Urine WBC Clumps 3+ /HPF 07/14/16 Unknown Hyaline Casts 3 /LPF 07/15/16 07:11 Urine Mucus Few /HPF 07/15/16 07:11 Urine Eosinophils None seen (None Seen) 07/15/16 07:11 Urine Creatinine 143.6 mg/dL (0.1-20.0) H 07/15/16 07:11 Protein/Creatinin Ratio 1.16 07/15/16 07:11 Urine Sodium 45 mEq/L 07/15/16 07:11 Urine Total Protein 166 mg/dL (5-11.8) H 07/15/16 07:11 Urine HCG, Qual Negative (Negative) 07/14/16 Unknown Random Vancomycin 22.6 ug/mL (0-40.0) 07/16/16 12:30 Urine Opiates Screen Presumptive negative 07/14/16 Unknown Urine Methadone Screen Presumptive negative 07/14/16 Unknown Ur Barbiturates Screen Presumptive negative 07/14/16 Unknown Ur Phencyclidine Scrn Presumptive negative 07/14/16 Unknown Ur Amphetamines Screen Presumptive negative 07/14/16 Unknown U Benzodiazepines Scrn Presumptive negative 07/14/16 Unknown Urine Cocaine Screen Presumptive negative 07/14/16 Unknown U Marijuana (THC) Screen Presumptive negative 07/14/16 Unknown Drugs of Abuse Note Disclamer 07/14/16 Unknown Proteinase 3 (PR3) Ab <1.0 AI (<1.0) 07/15/16 Unknown Myeloperoxidase Ab <1.0 AI (<1.0) 07/15/16 Unknown Complement C3 130 mg/dL (90-180) 07/15/16 Unknown Complement C4 14 mg/dL (16-47) L 07/15/16 Unknown Hepatitis A IgM Ab -1 (NonReactive) 07/15/16 Unknown Hep Bs Antigen Non-reactive (Negative) 07/15/16 Unknown Hep B Core IgM Ab Non-reactive (NonReactive) 07/15/16 Unknown Hepatitis C Antibody Non-reactive (NonReactive) 07/15/16 Unknown Blood Type B POSITIVE 07/18/16 00:16 Antibody Screen Negative 07/18/16 00:16 Crossmatch See Detail 07/18/16 00:16
[2016-07-19] MEDS: PERCOCET 5/325 PO PRN (23:57)
[2016-07-20] MEDS: TESSALON PERLES PO PRN ×2 (00:02→13:40)
[2016-07-20] MEDS: DILAUDID IV PRN ×4 (02:20→23:59)
[2016-07-20] MEDS: PERCOCET 5/325 PO PRN ×3 (05:58→18:25)
[2016-07-20] MEDS: D5NS 1,000 ML IV SCH ×2 (06:08→15:11)
[2016-07-20 06:22] LABS: BUN/Creatinine Ratio 14.11; Chloride 97.5 mmol/L (98-107); Potassium 4.3 mmol/L (3.6-5.0)
[2016-07-20 07:07] LABS: Hematocrit 26.8 % (30.3-42.9); Hemoglobin 8.9 gm/dl (10.1-14.3); Mean Corpuscular HGB Conc 33 % (30-34); Mean Corpuscular Volume 78 fl (79-97); Platelet Count 222 K/mm3 (140-440); Red Blood Count 3.44 M/mm3 (3.65-5.03); Red Cell Distribution Width 14.2 % (13.2-15.2)
[2016-07-20 07:17] LABS: Mean Corpuscular Hemoglobin 26 pg (28-32)
[2016-07-20 08:00] LABS: Basophils % (Manual) 0 % (0.0-1.8); Blastocytes % (Manual) 0 %; Eosinophils % (Manual) 0 % (0.0-4.3)
[2016-07-20 08:01] LABS: Anisocytosis 1+; Hypochromasia 1+; Microcytosis 1+; Tear Drop Cells Rare
[2016-07-20 08:02] LABS: Diff Status Complete
[2016-07-20] MEDS ORDERED: DILAUDID IV PRN (09:26)
[2016-07-20] MEDS: LEVAQUIN PO SCH (10:47)
[2016-07-20] MEDS ORDERED: TRIPLE ANTIBIOTIC TP ONE (11:08)
--- NOTE | 2016-07-20 11:26 | Progress Note ---
Assessment and Plan Impression: * Nonoliguric acute kidney injury secondary to ATN vs HIVAN * Sepsis secondary to haemophilus bacteremia * LLL pneumonia * HIV * Metabolic acidosis * Anemia Plan: * Patient w/ improved urine output; SCr trending down. * Will continue to hold hemodialysis for now. * Don't anticipate need for further dialysis at this time. Shall remove her Vas -Cath today * Encourage po hydration * Transfuse pRBC per primary team * Abx per ID * Renal diet * Avoid potential nephrotoxins * Dose medications for renal function Subjective Date of service: 07/20/16 Principal diagnosis: Haemophilus pneumonia, Sepsis; + HIV, acute kidney injury Interval history: Patient feels better today. Denies any shortness of breath. Still having some abdominal discomfort. No nausea or vomiting . Her Santiago catheter has been removed Objective - Vital Signs Vital signs: Vital Signs - 12hr 07/19/16 07/20/16 07/20/16 23:57 00:00 07:26 Temperature 99.5 F 99.0 F Pulse Rate [ 104 H 95 H Left Radial] Respiratory 20 20 16 Rate Blood Pressure 131/85 129/75 [Left Arm] O2 Sat by Pulse 97 99 Oximetry - General Appearance General appearance: well-developed, well-nourished, appears stated age EENT: PERRL, mucous membranes moist Neck: no JVD, no thyromegaly, no carotid bruit, supple, other (right IJ Vas- Cath in place) Respiratory: Present: Clear to Ascultation Cardiology: regular, normal heart rate, S1S2, no murmurs Gastrointestinal: normal, normoactive bowel sounds, tenderness (mild tenderness in the left lower quadrant area) Integumentary: no rash, other (no edema) - Lab 07/20/16 05:45 07/20/16 05:45 Most recent lab results Calcium 8.0 mg/dL (8.4-10.2) L 07/20/16 05:45 Magnesium 1.7 mg/dL (1.7-2.3) 07/17/16 06:10 Urine Creatinine 143.6 mg/dL (0.1-20.0) H 07/15/16 07:11 Urine Sodium 45 mEq/L 07/15/16 07:11 Urine Total Protein 166 mg/dL (5-11.8) H 07/15/16 07:11
--- NOTE | 2016-07-20 16:35 | Progress Note ---
Assessment and Plan Current antibiotics: Levaquin 500 mg po q day 07/18 --> Previous antibiotics: Meropenem 1 g IV q24h 07/14-07/18 Vancomycin (pulse dose) IV 07/14-07/18 Clindamycin 600 mg IV X 1 07/14 Antiretrovirals: (on hold now) Truvada 1 tab po q day Norvir 100 mg po q day Darunavir 800 mg po q day ASSESSMENT: Helga Carroll is a 31 y/o female with HIV infection, type 2 DM and asthma who was admitted to [facility] on 07/14 with a several day history of anterior chest pain, cough with occasional "greenish sputum production, subjective fevers and chills and was found to be hypotensive in the ED. She was also found to have MARY. Problem list: 1. Haemophilus influenzae bacteremia & sepsis -07/27 bottles from 07/14 positive -Repeat blood cultures 07/17 pending -Likely pulmonary or upper respiratory source -07/17 CXR with atelectasis but no definite pneumonia -Clinically improved 2. HIV infection -ARV therapy: Truvada, Norvir & darunavir -CD4 in the upper 200s and VL undetectable according to [place] records 3. MARY -? secondary to #1 -HD initiated -Renal function appears to be recovering 4. Leukocytosis -Secondary to #1 -Resolved 5. Penicillin allergy -"Tongue swells up" 6. Anemia PLAN: 1. Will switch to po Levaquin and follow 2. Continue to hold Truvada and darunavir/Norvir in light of her renal failure but restart if renal function continues to improve 4. Await results of repeat blood cultures from 07/17 to document clearance of the bacteremia (NGTD) 5. Continued supportive measures as are being done Mark Sanchez MD [facility] Office: [phone] Subjective Date of service: 07/20/16 Principal diagnosis: Haemophilus pneumonia, Sepsis; + HIV, acute kidney injury Interval history: No complaints at present except for persistent chest pain. ROS: No subjective fever or chills. No nausea, vomiting or diarrhea. No shortness of breath, cough or pleuritic chest pain Objective - Exam Narrative Exam: GENERAL: Well-developed, well-nourished appearing female who is alert and in no acute distress. She only appears mildly ill. Depressed affect. HEAD: Normocephalic. No lesions seen. EYES: Pupils are equal reactive to light and accommodation. There is no scleral icterus. Optic fundi are normal. EARS: Tympanic membranes are normal. THROAT: Oropharynx is normal with no evidence of oral candidiasis or pharyngitis. Mildly dry mucus membranes. NECK: Supple. No enlargement of the thyroid gland. No significant cervical lymphadenopathy. No jugular venous distention at 30. Right IJ Vas-Cath in place LUNGS: Clear with no adventitious sounds. CHEST: Mild tenderness over the right lateral chest with no other objective findings. HEART: Regular rate. S1 and S2 are normal. There are no murmurs, gallops, clicks or rubs heard. ABDOMEN: Soft, mildly distended and nontender. Liver and spleen are not palpably enlarged or tender. No palpable masses. Bowel sounds are normoactive. EXTREMITIES: No peripheral lymphadenopathy, clubbing or edema. SKIN: Multiple tattoos; no rash : Not examined. No Santiago. NEUROLOGIC: No focal findings. - Constitutional Vitals: Vital Signs Temp Pulse Resp BP Pulse Ox 98.1 F 90 22 129/84 97 07/20/16 15:15 07/20/16 15:15 07/20/16 15:15 07/20/16 15:15 07/20/16 15:15 Temperature -Last 24 Hours Temperature 98.1 F Temperature 99.0 F Temperature 99.5 F - Labs CBC & Chem 7: 07/20/16 05:45 07/20/16 05:45 Labs: Abnormal lab results Microbiology 07/14/16 14:33 Peripheral/Venous Blood Culture - Preliminary Haemophilus influenzae in 1/2 bottle so far 07/14/16 14:33 Peripheral/Venous Blood Culture - Preliminary Haemophilus influenzae in 1/2 bottles so far 07/14/16 14:20 Urine,Catheterized - Straight Catheter Urine Culture - Preliminary NO GROWTH AFTER 24 HOURS 07/18/16 10:04 Nasopharyngeal Swab Influenza Types A,B Antigen (TARA) - Negative Received records from [facility] and she was last seen in 11/2015 but no CD4 or viral load were done on that visit. Previous studies showed undetectable viral load and CD4 in the upper 200s. Imagin/25: Bibasilar infiltrates and small pulmonary effusions 07/14: CXR: Faint left lower lobe infiltrate
--- NOTE | 2016-07-20 19:05 | Progress Note ---
Assessment and Plan Assessment and plan: --s/p septic shock, resolved --gram-negative bacteremia Received 5 days of vancomycin and meropenem continue oral Levaquin, Repeat cultures negative to date ID following --Acute on chronic anemia Disposed 2 units PRBC transfusion Mild improvement of H&H --Possible small left lower lobe pneumonia chest x-ray Continue current antibiotics follow cultures --Acute renal failure; nephrology following hemodialysis per schedule --History of HIV AIDS antiretrovirals are on hold in view of sepsis and acute renal failure --DVT prophylaxis with Lovenox Closely monitor the patient and adjust the management as needed This planning possible case management DC home when cleared by ID History Interval history: Patient seen and evaluated medical records reviewed Patient feels Slightly better, complains of generalized body pains Patient requests for more pain medications Denies chest pain or shortness of breath Alert awake oriented 3 not in acute distress Hospitalist Physical - Constitutional Vitals: Temp Pulse Resp BP Pulse Ox 100.5 F H 90 22 129/84 97 07/20/16 18:26 07/20/16 15:15 07/20/16 15:15 07/20/16 15:15 07/20/16 15:15 General appearance: Present: no acute distress, well-nourished - EENT Eyes: Present: PERRL, EOM intact - Neck Neck: Present: supple, normal ROM - Respiratory Respiratory effort: normal Respiratory: bilateral: diminished, negative: rales, rhonchi, wheezing - Cardiovascular Rhythm: regular Heart Sounds: Present: S1 & S2 - Extremities Extremities: no ischemia, pulses intact, pulses symmetrical Peripheral Pulses: within normal limits - Abdominal General gastrointestinal: soft, non-tender, non-distended, normal bowel sounds - Integumentary Integumentary: Present: clear, warm - Psychiatric Psychiatric: appropriate mood/affect, cooperative - Neurologic Neurologic: CNII-XII intact, moves all extremities Results - Labs CBC & Chem 7: 07/20/16 05:45 07/20/16 05:45 Labs: Laboratory Last Values WBC 6.0 K/mm3 (4.5-11.0) 07/20/16 05:45 RBC 3.44 M/mm3 (3.65-5.03) L 07/20/16 05:45 Hgb 8.9 gm/dl (10.1-14.3) L 07/20/16 05:45 Hct 26.8 % (30.3-42.9) L 07/20/16 05:45 MCV 78 fl (79-97) L 07/20/16 05:45 MCH 26 pg (28-32) L 07/20/16 05:45 MCHC 33 % (30-34) 07/20/16 05:45 RDW 14.2 % (13.2-15.2) 07/20/16 05:45 Plt Count 222 K/mm3 (140-440) 07/20/16 05:45 Lymph % (Auto) Stator Tester 07/20/16 05:45 [place] % (Auto) Stator Tester 07/20/16 05:45 Eos % (Auto) Stator Tester 07/20/16 05:45 Baso % (Auto) Stator Tester 07/20/16 05:45 Lymph # Stator Tester 07/20/16 05:45 [place] # Stator Tester 07/20/16 05:45 Eos # Stator Tester 07/20/16 05:45 Baso # Stator Tester 07/20/16 05:45 Add Manual Diff Complete 07/20/16 05:45 Total Counted 100 07/20/16 05:45 Seg Neutrophils % Stator Tester 07/20/16 05:45 Seg Neuts % (Manual) 86.0 % (40.0-70.0) H 07/20/16 05:45 Band Neutrophils % 3.0 % 07/20/16 05:45 Lymphocytes % (Manual) 8.0 % (13.4-35.0) L 07/20/16 05:45 Reactive Lymphs % (Man) 0 % 07/20/16 05:45 Monocytes % (Manual) 2.0 % (0.0-7.3) 07/20/16 05:45 Eosinophils % (Manual) 0 % (0.0-4.3) 07/20/16 05:45 Basophils % (Manual) 0 % (0.0-1.8) 07/20/16 05:45 Metamyelocytes % 1.0 % 07/20/16 05:45 Myelocytes % 0 % 07/20/16 05:45 Promyelocytes % 0 % 07/20/16 05:45 Blast Cells % 0 % 07/20/16 05:45 Nucleated RBC % Not Reportable 07/20/16 05:45 Seg Neutrophils # Stator Tester 07/20/16 05:45 Seg Neutrophils # Man 5.2 K/mm3 (1.8-7.7) 07/20/16 05:45 Band Neutrophils # 0.2 K/mm3 07/20/16 05:45 Lymphocytes # (Manual) 0.5 K/mm3 (1.2-5.4) L 07/20/16 05:45 Abs React Lymphs (Man) 0.0 K/mm3 07/20/16 05:45 Monocytes # (Manual) 0.1 K/mm3 (0.0-0.8) 07/20/16 05:45 Eosinophils # (Manual) 0.0 K/mm3 (0.0-0.4) 07/20/16 05:45 Basophils # (Manual) 0.0 K/mm3 (0.0-0.1) 07/20/16 05:45 Metamyelocytes # 0.1 K/mm3 07/20/16 05:45 Myelocytes # 0.0 K/mm3 07/20/16 05:45 Promyelocytes # 0.0 K/mm3 07/20/16 05:45 Blast Cells # 0.0 K/mm3 07/20/16 05:45 WBC Morphology Not Reportable 07/20/16 05:45 Hypersegmented Neuts Not Reportable 07/20/16 05:45 Hyposegmented Neuts Not Reportable 07/20/16 05:45 Hypogranular Neuts Not Reportable 07/20/16 05:45 Smudge Cells Not Reportable 07/20/16 05:45 Toxic Granulation Not Reportable 07/20/16 05:45 Toxic Vacuolation Not Reportable 07/20/16 05:45 Dohle Bodies Not Reportable 07/20/16 05:45 Pelger-Huet Anomaly Not Reportable 07/20/16 05:45 Rishabh Rods Not Reportable 07/20/16 05:45 Platelet Estimate Appears normal 07/20/16 05:45 Clumped Platelets Not Reportable 07/20/16 05:45 Plt Clumps, EDTA Not Reportable 07/20/16 05:45 Large Platelets Not Reportable 07/20/16 05:45 Giant Platelets Not Reportable 07/20/16 05:45 Platelet Satelliting Not Reportable 07/20/16 05:45 Plt Morphology Comment Not Reportable 07/20/16 05:45 RBC Morphology Not Reportable 07/20/16 05:45 Dimorphic RBCs Not Reportable 07/20/16 05:45 Polychromasia Not Reportable 07/20/16 05:45 Hypochromasia 1+ 07/20/16 05:45 Poikilocytosis Not Reportable 07/20/16 05:45 Anisocytosis 1+ 07/20/16 05:45 Microcytosis 1+ 07/20/16 05:45 Macrocytosis Not Reportable 07/20/16 05:45 Spherocytes Not Reportable 07/20/16 05:45 Pappenheimer Bodies Not Reportable 07/20/16 05:45 Sickle Cells Not Reportable 07/20/16 05:45 Target Cells Not Reportable 07/20/16 05:45 Tear Drop Cells Rare 07/20/16 05:45 Ovalocytes Not Reportable 07/20/16 05:45 Helmet Cells Not Reportable 07/20/16 05:45 [place] Bodies Not Reportable 07/20/16 05:45 M[place] Rings Not Reportable 07/20/16 05:45 [place] Cells Not Reportable 07/20/16 05:45 Bite Cells Not Reportable 07/20/16 05:45 Crenated Cell Not Reportable 07/20/16 05:45 Elliptocytes Not Reportable 07/20/16 05:45 Acanthocytes (Spur) Not Reportable 07/20/16 05:45 Rouleaux Not Reportable 07/20/16 05:45 Hemoglobin C Crystals Not Reportable 07/20/16 05:45 Schistocytes Not Reportable 07/20/16 05:45 Malaria parasites Not Reportable 07/20/16 05:45 Stephen Bodies Not Reportable 07/20/16 05:45 Hem Pathologist Commnt No 07/20/16 05:45 PT 15.3 Sec. (12.2-14.9) H 07/14/16 14:33 INR 1.22 (0.87-1.13) H 07/14/16 14:33 APTT 30.8 Sec. (24.2-36.6) 07/14/16 14:33 POC ABG pH 7.345 (7.35-7.45) L 07/14/16 14:42 POC ABG pCO2 34.2 (35-45) L 07/14/16 14:42 POC ABG pO2 24 (80-105) L 07/14/16 14:42 POC ABG HCO3 18.6 07/14/16 14:42 POC ABG Total CO2 20 07/14/16 14:42 POC ABG O2 Sat 39 07/14/16 14:42 POC ABG Base Excess -7 07/14/16 14:42 FiO2 28 % 07/14/16 14:42 Sodium 134 mmol/L (137-145) L 07/20/16 05:45 Potassium 4.3 mmol/L (3.6-5.0) 07/20/16 05:45 Chloride 97.5 mmol/L (98-107) L 07/20/16 05:45 Carbon Dioxide 25 mmol/L (22-30) 07/20/16 05:45 Anion Gap 16 mmol/L 07/20/16 05:45 BUN 24 mg/dL (7-17) H 07/20/16 05:45 Creatinine 1.7 mg/dL (0.7-1.2) H 07/20/16 05:45 Estimated GFR 43 ml/min 07/20/16 05:45 BUN/Creatinine Ratio 14.11 % 07/20/16 05:45 Glucose 84 mg/dL (65-100) 07/20/16 05:45 POC Glucose 122 (70-105) H 07/16/16 11:56 Lactic Acid 1.6 mmol/L (0.7-2.0) 07/14/16 17:01 Calcium 8.0 mg/dL (8.4-10.2) L 07/20/16 05:45 Magnesium 1.7 mg/dL (1.7-2.3) 07/17/16 06:10 Total Bilirubin 2.1 mg/dL (0.1-1.2) H 07/14/16 14:33 Direct Bilirubin 1.5 mg/dL (0-0.2) H 07/14/16 14:33 Indirect Bilirubin 0.6 mg/dL 07/14/16 14:33 AST 32 units/L (5-40) 07/14/16 14:33 ALT 26 units/L (7-56) 07/14/16 14:33 Alkaline Phosphatase 166 units/L (35-129) H 07/14/16 14:33 Troponin T < 0.010 ng/mL (0.00-0.029) 07/14/16 14:33 NT-Pro-B Natriuret Pep 3986 pg/mL (0-450) H 07/14/16 14:33 Serum Total Protein 6.4 g/dL (6.1-8.1) 07/15/16 Unknown Total Protein 8.6 g/dL (6.3-8.2) H 07/14/16 14:33 Albumin 1.8 g/dL (3.8-4.8) L 07/15/16 Unknown Albumin/Globulin Ratio 0.4 % 07/14/16 14:33 Wqvek-1-Hrctwyfqu 0.7 g/dL (0.2-0.3) H 07/15/16 Unknown Mexrd-7-Vtzdgtxqn 0.9 g/dL (0.5-0.9) 07/15/16 Unknown Beta Globulins 0.4 g/dL (0.2-0.5) 07/15/16 Unknown Gamma Globulins 2.3 g/dL (0.8-1.7) H 07/15/16 Unknown Abnorm Protein Band 1 see below (()) 07/15/16 Unknown PEP Interpretation see below (()) H 07/15/16 Unknown TSH 1.060 mlU/mL (0.270-4.200) 07/14/16 14:33 Free T4 1.21 ng/dL (0.76-1.46) 07/14/16 14:33 Urine Color Jen (Yellow) 07/15/16 07:11 Urine Turbidity Cloudy (Clear) 07/15/16 07:11 Urine pH 5.0 (5.0-7.0) 07/15/16 07:11 Ur Specific [place] 1.016 (1.003-1.030) 07/15/16 07:11 Urine Protein 30 mg/dl mg/dL (Negative) 07/15/16 07:11 Urine Glucose (UA) Neg mg/dL (Negative) 07/15/16 07:11 Urine Ketones Neg mg/dL (Negative) 07/15/16 07:11 Urine Blood Lg (Negative) 07/15/16 07:11 Urine Nitrite Neg (Negative) 07/15/16 07:11 Urine Bilirubin Neg (Negative) 07/15/16 07:11 Urine Ictotest Negative (Negative) 07/14/16 Unknown Urine Urobilinogen 4.0 mg/dL (<2.0) 07/15/16 07:11 Ur Leukocyte Esterase Sm (Negative) 07/15/16 07:11 Urine WBC (Auto) 15.0 /HPF (0.0-6.0) H 07/15/16 07:11 Urine RBC (Auto) 115.0 /HPF (0.0-6.0) 07/15/16 07:11 U Epithel Cells (Auto) < 1.0 /HPF (0-13.0) 07/15/16 07:11 Urine Bacteria (Auto) 2+ /HPF (Negative) 07/15/16 07:11 Urine WBC Clumps 3+ /HPF 07/14/16 Unknown Hyaline Casts 3 /LPF 07/15/16 07:11 Urine Mucus Few /HPF 07/15/16 07:11 Urine Eosinophils None seen (None Seen) 07/15/16 07:11 Urine Creatinine 143.6 mg/dL (0.1-20.0) H 07/15/16 07:11 Protein/Creatinin Ratio 1.16 07/15/16 07:11 Urine Sodium 45 mEq/L 07/15/16 07:11 Urine Total Protein 166 mg/dL (5-11.8) H 07/15/16 07:11 Urine HCG, Qual Negative (Negative) 07/14/16 Unknown Random Vancomycin 22.6 ug/mL (0-40.0) 07/16/16 12:30 Urine Opiates Screen Presumptive negative 07/14/16 Unknown Urine Methadone Screen Presumptive negative 07/14/16 Unknown Ur Barbiturates Screen Presumptive negative 07/14/16 Unknown Ur Phencyclidine Scrn Presumptive negative 07/14/16 Unknown Ur Amphetamines Screen Presumptive negative 07/14/16 Unknown U Benzodiazepines Scrn Presumptive negative 07/14/16 Unknown Urine Cocaine Screen Presumptive negative 07/14/16 Unknown U Marijuana (THC) Screen Presumptive negative 07/14/16 Unknown Drugs of Abuse Note Disclamer 07/14/16 Unknown Proteinase 3 (PR3) Ab <1.0 AI (<1.0) 07/15/16 Unknown Myeloperoxidase Ab <1.0 AI (<1.0) 07/15/16 Unknown Complement C3 130 mg/dL (90-180) 01/23/17 Unknown Complement C4 14 mg/dL (16-47) L 07/15/16 Unknown Hepatitis A IgM Ab -1 (NonReactive) 07/15/16 Unknown Hep Bs Antigen Non-reactive (Negative) 07/15/16 Unknown Hep B Core IgM Ab Non-reactive (NonReactive) 07/15/16 Unknown Hepatitis C Antibody Non-reactive (NonReactive) 07/15/16 Unknown Blood Type B POSITIVE 07/18/16 00:16 Antibody Screen Negative 07/18/16 00:16 Crossmatch See Detail 07/18/16 00:16
[2016-07-21] MEDS: PERCOCET 5/325 PO PRN ×3 (03:27→20:55)
[2016-07-21] MEDS: D5NS 1,000 ML IV SCH ×3 (07:40→19:04)
[2016-07-21] MEDS: DILAUDID IV PRN ×2 (07:41→17:20)
[2016-07-21] MEDS: TESSALON PERLES PO PRN (07:41)
[2016-07-21 10:53] LABS: Anion Gap 15 mmol/L; Blood Urea Nitrogen 12 mg/dL (7-17); Calcium 7.5 mg/dL (8.4-10.2); Carbon Dioxide 23 mmol/L (22-30); Chloride 103.2 mmol/L (98-107); Glucose 113 mg/dL (65-100); Potassium 4.2 mmol/L (3.6-5.0); Sodium 137 mmol/L (137-145)
--- NOTE | 2016-07-21 11:29 | Progress Note ---
Assessment and Plan Impression: * Nonoliguric acute kidney injury secondary to ATN vs HIVAN * Sepsis secondary to gram-negative bacteremia * LLL pneumonia * HIV * Metabolic acidosis * Anemia Plan: * Patient renal function has improved. * No further need for dialysis. Her Vas-Cath has been removed * Shall reduce her IV fluids. Encourage po hydration * Transfuse pRBC per primary team * Abx per ID * Renal diet * Avoid potential nephrotoxins * Dose medications for renal function Subjective Date of service: 07/21/16 Principal diagnosis: Haemophilus pneumonia, Sepsis; + HIV, acute kidney injury Interval history: Patient feels somewhat better today. Her IJ Vas-Cath has been removed. Objective - Vital Signs Vital signs: Vital Signs - 12hr 07/20/16 07/21/16 07/21/16 23:59 03:27 08:12 Temperature 99.5 F Pulse Rate [ 87 Left Radial] Respiratory 16 18 20 Rate Blood Pressure 149/95 [Left Arm] O2 Sat by Pulse 99 Oximetry - General Appearance General appearance: well-developed, well-nourished, appears stated age EENT: PERRL, mucous membranes moist Neck: no JVD, no thyromegaly, no carotid bruit, supple, other (small dressing on the right side of her neck. Dry) Respiratory: Present: Clear to Ascultation Cardiology: regular, normal heart rate Gastrointestinal: normal, normoactive bowel sounds Integumentary: no rash, other (no edema) - Lab 07/20/16 05:45 07/21/16 04:00 Most recent lab results Calcium 7.5 mg/dL (8.4-10.2) L 07/21/16 04:00 Magnesium 1.7 mg/dL (1.7-2.3) 07/17/16 06:10 Urine Creatinine 143.6 mg/dL (0.1-20.0) H 07/15/16 07:11 Urine Sodium 45 mEq/L 07/15/16 07:11 Urine Total Protein 166 mg/dL (5-11.8) H 07/15/16 07:11
--- NOTE | 2016-07-21 13:16 | Progress Note ---
Assessment and Plan Total Time Spent with Patient (Minutes): 20 - Patient Problems (1) Acute renal injury Current Visit: Yes Status: Acute Plan to address problem: Renal failure continues to resolve. Nephrology following patient. No further hemodialysis as needed. (2) Pneumonia Current Visit: Yes Status: Acute Qualifiers: Pneumonia type: due to unspecified organism Laterality: left Lung location: lower lobe of lung Qualified Code(s): J18.9 - Pneumonia, unspecified organism Plan to address problem: Agent with questionable history left lower lobe pneumonia. On Levaquin we'll continue Levaquin since patient had temperature over p.m. Chin has only been positive for H influenza. Has been treated with 5 days Vanco M[place]um. Blood cultures no growth so far. Also repeat cultures from 125 no growth as well. (3) Severe sepsis Current Visit: Yes Status: Acute Plan to address problem: Has resolved. Patient treated with Vanco. Cultures repeated negative. No evidence of sepsis at this particular time. Patient did have one episode of fever last night 102.9. (4) History of HIV or AIDS Current Visit: Yes Status: Acute Plan to address problem: Agent being followed off anti-retrovirals at this particular time. History Interval history: Agent seen examined all questions and concerns answered. Patient only concerns today was for cough. States she needs something stronger for cough. Patient also was febrile over p.m. with a temp of 102.9. Hospitalist Physical - Constitutional Vitals: Temp Pulse Resp BP Pulse Ox 99.5 F 87 20 149/95 99 07/21/16 08:12 07/21/16 08:12 07/21/16 08:12 07/21/16 08:12 07/21/16 08:12 General appearance: Present: no acute distress, well-nourished - EENT Eyes: Present: PERRL, EOM intact ENT: hearing intact, clear oral mucosa, dentition normal - Neck Neck: Present: supple - Respiratory Respiratory effort: normal - Cardiovascular Rhythm: regular Heart Sounds: Present: S1 & S2 - Extremities Extremities: no ischemia, pulses intact, pulses symmetrical, No edema, normal color, Full ROM Peripheral Pulses: within normal limits - Abdominal General gastrointestinal: soft, non-tender, non-distended, normal bowel sounds - Integumentary Integumentary: Present: clear, warm, dry - Psychiatric Psychiatric: appropriate mood/affect, cooperative - Neurologic Neurologic: CNII-XII intact Results - Labs CBC & Chem 7: 07/20/16 05:45 07/21/16 04:00 Labs: Laboratory Last Values WBC 6.0 K/mm3 (4.5-11.0) 07/20/16 05:45 RBC 3.44 M/mm3 (3.65-5.03) L 07/20/16 05:45 Hgb 8.9 gm/dl (10.1-14.3) L 07/20/16 05:45 Hct 26.8 % (30.3-42.9) L 07/20/16 05:45 MCV 78 fl (79-97) L 07/20/16 05:45 MCH 26 pg (28-32) L 07/20/16 05:45 MCHC 33 % (30-34) 07/20/16 05:45 RDW 14.2 % (13.2-15.2) 07/20/16 05:45 Plt Count 222 K/mm3 (140-440) 07/20/16 05:45 Lymph % (Auto) Risk Control Consultant 07/20/16 05:45 [place] % (Auto) Risk Control Consultant 07/20/16 05:45 Eos % (Auto) Risk Control Consultant 07/20/16 05:45 Baso % (Auto) Risk Control Consultant 07/20/16 05:45 Lymph # Risk Control Consultant 07/20/16 05:45 [place] # Risk Control Consultant 07/20/16 05:45 Eos # Risk Control Consultant 07/20/16 05:45 Baso # Risk Control Consultant 07/20/16 05:45 Add Manual Diff Complete 07/20/16 05:45 Total Counted 100 07/20/16 05:45 Seg Neutrophils % Risk Control Consultant 07/20/16 05:45 Seg Neuts % (Manual) 86.0 % (40.0-70.0) H 07/20/16 05:45 Band Neutrophils % 3.0 % 07/20/16 05:45 Lymphocytes % (Manual) 8.0 % (13.4-35.0) L 07/20/16 05:45 Reactive Lymphs % (Man) 0 % 07/20/16 05:45 Monocytes % (Manual) 2.0 % (0.0-7.3) 07/20/16 05:45 Eosinophils % (Manual) 0 % (0.0-4.3) 07/20/16 05:45 Basophils % (Manual) 0 % (0.0-1.8) 07/20/16 05:45 Metamyelocytes % 1.0 % 07/20/16 05:45 Myelocytes % 0 % 07/20/16 05:45 Promyelocytes % 0 % 07/20/16 05:45 Blast Cells % 0 % 07/20/16 05:45 Nucleated RBC % Not Reportable 07/20/16 05:45 Seg Neutrophils # Risk Control Consultant 07/20/16 05:45 Seg Neutrophils # Man 5.2 K/mm3 (1.8-7.7) 07/20/16 05:45 Band Neutrophils # 0.2 K/mm3 07/20/16 05:45 Lymphocytes # (Manual) 0.5 K/mm3 (1.2-5.4) L 07/20/16 05:45 Abs React Lymphs (Man) 0.0 K/mm3 07/20/16 05:45 Monocytes # (Manual) 0.1 K/mm3 (0.0-0.8) 07/20/16 05:45 Eosinophils # (Manual) 0.0 K/mm3 (0.0-0.4) 07/20/16 05:45 Basophils # (Manual) 0.0 K/mm3 (0.0-0.1) 07/20/16 05:45 Metamyelocytes # 0.1 K/mm3 07/20/16 05:45 Myelocytes # 0.0 K/mm3 07/20/16 05:45 Promyelocytes # 0.0 K/mm3 07/20/16 05:45 Blast Cells # 0.0 K/mm3 07/20/16 05:45 WBC Morphology Not Reportable 07/20/16 05:45 Hypersegmented Neuts Not Reportable 07/20/16 05:45 Hyposegmented Neuts Not Reportable 07/20/16 05:45 Hypogranular Neuts Not Reportable 07/20/16 05:45 Smudge Cells Not Reportable 07/20/16 05:45 Toxic Granulation Not Reportable 07/20/16 05:45 Toxic Vacuolation Not Reportable 07/20/16 05:45 Dohle Bodies Not Reportable 07/20/16 05:45 Pelger-Huet Anomaly Not Reportable 07/20/16 05:45 Rishabh Rods Not Reportable 07/20/16 05:45 Platelet Estimate Appears normal 07/20/16 05:45 Clumped Platelets Not Reportable 07/20/16 05:45 Plt Clumps, EDTA Not Reportable 07/20/16 05:45 Large Platelets Not Reportable 07/20/16 05:45 Giant Platelets Not Reportable 07/20/16 05:45 Platelet Satelliting Not Reportable 07/20/16 05:45 Plt Morphology Comment Not Reportable 07/20/16 05:45 RBC Morphology Not Reportable 07/20/16 05:45 Dimorphic RBCs Not Reportable 07/20/16 05:45 Polychromasia Not Reportable 07/20/16 05:45 Hypochromasia 1+ 07/20/16 05:45 Poikilocytosis Not Reportable 07/20/16 05:45 Anisocytosis 1+ 07/20/16 05:45 Microcytosis 1+ 07/20/16 05:45 Macrocytosis Not Reportable 07/20/16 05:45 Spherocytes Not Reportable 07/20/16 05:45 Pappenheimer Bodies Not Reportable 07/20/16 05:45 Sickle Cells Not Reportable 07/20/16 05:45 Target Cells Not Reportable 07/20/16 05:45 Tear Drop Cells Rare 07/20/16 05:45 Ovalocytes Not Reportable 07/20/16 05:45 Helmet Cells Not Reportable 07/20/16 05:45 [place] Bodies Not Reportable 07/20/16 05:45 [place] Rings Not Reportable 07/20/16 05:45 [place] Cells Not Reportable 07/20/16 05:45 Bite Cells Not Reportable 07/20/16 05:45 Crenated Cell Not Reportable 07/20/16 05:45 Elliptocytes Not Reportable 07/20/16 05:45 Acanthocytes (Spur) Not Reportable 07/20/16 05:45 Rouleaux Not Reportable 07/20/16 05:45 Hemoglobin C Crystals Not Reportable 07/20/16 05:45 Schistocytes Not Reportable 07/20/16 05:45 Malaria parasites Not Reportable 07/20/16 05:45 Stephen Bodies Not Reportable 07/20/16 05:45 Hem Pathologist Commnt No 07/20/16 05:45 PT 15.3 Sec. (12.2-14.9) H 07/14/16 14:33 INR 1.22 (0.87-1.13) H 07/14/16 14:33 APTT 30.8 Sec. (24.2-36.6) 07/14/16 14:33 POC ABG pH 7.345 (7.35-7.45) L 07/14/16 14:42 POC ABG pCO2 34.2 (35-45) L 07/14/16 14:42 POC ABG pO2 24 (80-105) L 07/14/16 14:42 POC ABG HCO3 18.6 07/14/16 14:42 POC ABG Total CO2 20 07/14/16 14:42 POC ABG O2 Sat 39 07/14/16 14:42 POC ABG Base Excess -7 07/14/16 14:42 FiO2 28 % 07/14/16 14:42 Sodium 137 mmol/L (137-145) 07/21/16 04:00 Potassium 4.2 mmol/L (3.6-5.0) 07/21/16 04:00 Chloride 103.2 mmol/L (98-107) 07/21/16 04:00 Carbon Dioxide 23 mmol/L (22-30) 07/21/16 04:00 Anion Gap 15 mmol/L 07/21/16 04:00 BUN 12 mg/dL (7-17) 07/21/16 04:00 Creatinine 1.2 mg/dL (0.7-1.2) 07/21/16 04:00 Estimated GFR > 60 ml/min 07/21/16 04:00 BUN/Creatinine Ratio 10.00 % 07/21/16 04:00 Glucose 113 mg/dL (65-100) H 07/21/16 04:00 POC Glucose 122 (70-105) H 07/16/16 11:56 Lactic Acid 1.6 mmol/L (0.7-2.0) 07/14/16 17:01 Calcium 7.5 mg/dL (8.4-10.2) L 07/21/16 04:00 Magnesium 1.7 mg/dL (1.7-2.3) 07/17/16 06:10 Total Bilirubin 2.1 mg/dL (0.1-1.2) H 07/14/16 14:33 Direct Bilirubin 1.5 mg/dL (0-0.2) H 07/14/16 14:33 Indirect Bilirubin 0.6 mg/dL 07/14/16 14:33 AST 32 units/L (5-40) 07/14/16 14:33 ALT 26 units/L (7-56) 07/14/16 14:33 Alkaline Phosphatase 166 units/L (35-129) H 07/14/16 14:33 Troponin T < 0.010 ng/mL (0.00-0.029) 07/14/16 14:33 NT-Pro-B Natriuret Pep 3986 pg/mL (0-450) H 07/14/16 14:33 Serum Total Protein 6.4 g/dL (6.1-8.1) 07/15/16 Unknown Total Protein 8.6 g/dL (6.3-8.2) H 07/14/16 14:33 Albumin 1.8 g/dL (3.8-4.8) L 07/15/16 Unknown Albumin/Globulin Ratio 0.4 % 07/14/16 14:33 Flhpo-1-Eltviwjxd 0.7 g/dL (0.2-0.3) H 07/15/16 Unknown Lpcic-0-Lrooxjaio 0.9 g/dL (0.5-0.9) 07/15/16 Unknown Beta Globulins 0.4 g/dL (0.2-0.5) 07/15/16 Unknown Gamma Globulins 2.3 g/dL (0.8-1.7) H 07/15/16 Unknown Abnorm Protein Band 1 see below (()) 07/15/16 Unknown PEP Interpretation see below (()) H 07/15/16 Unknown TSH 1.060 mlU/mL (0.270-4.200) 07/14/16 14:33 Free T4 1.21 ng/dL (0.76-1.46) 07/14/16 14:33 Urine Color Jen (Yellow) 07/15/16 07:11 Urine Turbidity Cloudy (Clear) 07/15/16 07:11 Urine pH 5.0 (5.0-7.0) 07/15/16 07:11 Ur Specific [place] 1.016 (1.003-1.030) 07/15/16 07:11 Urine Protein 30 mg/dl mg/dL (Negative) 07/15/16 07:11 Urine Glucose (UA) Neg mg/dL (Negative) 07/15/16 07:11 Urine Ketones Neg mg/dL (Negative) 07/15/16 07:11 Urine Blood Lg (Negative) 07/15/16 07:11 Urine Nitrite Neg (Negative) 07/15/16 07:11 Urine Bilirubin Neg (Negative) 07/15/16 07:11 Urine Ictotest Negative (Negative) 07/14/16 Unknown Urine Urobilinogen 4.0 mg/dL (<2.0) 07/15/16 07:11 Ur Leukocyte Esterase Sm (Negative) 07/15/16 07:11 Urine WBC (Auto) 15.0 /HPF (0.0-6.0) H 07/15/16 07:11 Urine RBC (Auto) 115.0 /HPF (0.0-6.0) 07/15/16 07:11 U Epithel Cells (Auto) < 1.0 /HPF (0-13.0) 07/15/16 07:11 Urine Bacteria (Auto) 2+ /HPF (Negative) 07/15/16 07:11 Urine WBC Clumps 3+ /HPF 07/14/16 Unknown Hyaline Casts 3 /LPF 07/15/16 07:11 Urine Mucus Few /HPF 07/15/16 07:11 Urine Eosinophils None seen (None Seen) 07/15/16 07:11 Urine Creatinine 143.6 mg/dL (0.1-20.0) H 07/15/16 07:11 Protein/Creatinin Ratio 1.16 07/15/16 07:11 Urine Sodium 45 mEq/L 07/15/16 07:11 Urine Total Protein 166 mg/dL (5-11.8) H 07/15/16 07:11 Urine HCG, Qual Negative (Negative) 07/14/16 Unknown Random Vancomycin 22.6 ug/mL (0-40.0) 07/16/16 12:30 Urine Opiates Screen Presumptive negative 07/14/16 Unknown Urine Methadone Screen Presumptive negative 07/14/16 Unknown Ur Barbiturates Screen Presumptive negative 07/14/16 Unknown Ur Phencyclidine Scrn Presumptive negative 07/14/16 Unknown Ur Amphetamines Screen Presumptive negative 07/14/16 Unknown U Benzodiazepines Scrn Presumptive negative 07/14/16 Unknown Urine Cocaine Screen Presumptive negative 07/14/16 Unknown U Marijuana (THC) Screen Presumptive negative 07/14/16 Unknown Drugs of Abuse Note Disclamer 07/14/16 Unknown Proteinase 3 (PR3) Ab <1.0 AI (<1.0) 07/15/16 Unknown Myeloperoxidase Ab <1.0 AI (<1.0) 07/15/16 Unknown Complement C3 130 mg/dL (90-180) 07/15/16 Unknown Complement C4 14 mg/dL (16-47) L 07/15/16 Unknown Hepatitis A IgM Ab -1 (NonReactive) 07/15/16 Unknown Hep Bs Antigen Non-reactive (Negative) 07/15/16 Unknown Hep B Core IgM Ab Non-reactive (NonReactive) 07/15/16 Unknown Hepatitis C Antibody Non-reactive (NonReactive) 07/15/16 Unknown Blood Type B POSITIVE 07/18/16 00:16 Antibody Screen Negative 07/18/16 00:16 Crossmatch See Detail 07/18/16 00:16 - Imaging and Cardiology Chest x-ray: image reviewed
[2016-07-21] MEDS ORDERED: PHENERGAN/CODEINE 6.25-10 MG/5ML PO PRN (13:17)
[2016-07-21] MEDS: ROBITUSSIN AC PO PRN ×3 (15:15→23:23)
--- NOTE | 2016-07-21 19:09 | Progress Note ---
Assessment and Plan Current antibiotics: Levaquin 500 mg po q day 07/18 --> Previous antibiotics: Meropenem 1 g IV q24h 07/14-07/18 Vancomycin (pulse dose) IV 07/14-07/18 Clindamycin 600 mg IV X 1 07/14 Antiretrovirals: (on hold now) Truvada 1 tab po q day Norvir 100 mg po q day Darunavir 800 mg po q day ASSESSMENT: Helga Carroll is a 31 y/o female with HIV infection, type 2 DM and asthma who was admitted to [facility] on 07/14 with a several day history of anterior chest pain, cough with occasional "greenish sputum production, subjective fevers and chills and was found to be hypotensive in the ED. She was also found to have MARY. Problem list: 1. Haemophilus influenzae bacteremia & sepsis -07/27 bottles from 07/14 positive -Repeat blood cultures 07/17 pending -Likely pulmonary or upper respiratory source -07/17 CXR with atelectasis but no definite pneumonia -Clinically improved 2. HIV infection -ARV therapy: Truvada, Norvir & darunavir -CD4 in the upper 200s and VL undetectable according to [place] records 3. MARY -? secondary to #1 -Transient HD that has now been stopped -Renal function is recovering 4. Leukocytosis -Secondary to #1 -Resolved 5. Penicillin allergy -"Tongue swells up" 6. Anemia PLAN: 1. Continue po Levaquin 2. If renal function continues to improve will restart Truvada and darunavir/ Norvir 3. Await results of repeat blood cultures from 07/17 to document clearance of the bacteremia (NGTD) 4. Continued supportive measures as are being done Mark Sanchez MD [facility] Office: [phone] Subjective Date of service: 07/21/16 Principal diagnosis: Haemophilus pneumonia, Sepsis; + HIV, acute kidney injury Interval history: Feeling better in general. Wants have a breathing treatment with some mild shortness of breath. ROS: No subjective fever or chills. No nausea, vomiting or diarrhea. No cough or pleuritic chest pain Objective - Exam Narrative Exam: GENERAL: Well-developed, well-nourished appearing female who is alert and in no acute distress. She only appears mildly ill. Depressed affect. HEAD: Normocephalic. No lesions seen. EYES: Pupils are equal reactive to light and accommodation. There is no scleral icterus. Optic fundi are normal. EARS: Tympanic membranes are normal. THROAT: Oropharynx is normal with no evidence of oral candidiasis or pharyngitis. Mildly dry mucus membranes. NECK: Supple. No enlargement of the thyroid gland. No significant cervical lymphadenopathy. No jugular venous distention at 30. Right IJ Vas-Cath has been removed. LUNGS: Clear with no adventitious sounds. CHEST: Mild tenderness over the right lateral chest much improved. HEART: Regular rate. S1 and S2 are normal. There are no murmurs, gallops, clicks or rubs heard. ABDOMEN: Soft, mildly distended and nontender. Liver and spleen are not palpably enlarged or tender. No palpable masses. Bowel sounds are normoactive. EXTREMITIES: No peripheral lymphadenopathy, clubbing or edema. SKIN: Multiple tattoos; no rash : Not examined. No Santiago. NEUROLOGIC: No focal findings. - Constitutional Vitals: Vital Signs Temp Pulse Resp BP Pulse Ox 99.4 F 88 20 121/69 99 07/21/16 15:33 07/21/16 15:33 07/21/16 15:33 07/21/16 15:33 07/21/16 08:12 Temperature -Last 24 Hours Temperature 99.4 F Temperature 99.5 F Temperature 102.9 F - Labs CBC & Chem 7: 07/20/16 05:45 07/21/16 04:00 Labs: Abnormal lab results Microbiology 07/14/16 14:33 Peripheral/Venous Blood Culture - Preliminary Haemophilus influenzae in 1/2 bottles 07/14/16 14:33 Peripheral/Venous Blood Culture - Preliminary Haemophilus influenzae in 1/2 bottles 07/14/16 14:20 Urine,Catheterized - Straight Catheter Urine Culture - Preliminary NO GROWTH AFTER 24 HOURS 07/18/16 10:04 Nasopharyngeal Swab Influenza Types A,B Antigen (TARA) - Negative Received records from [facility] and she was last seen in 11/2015 but no CD4 or viral load were done on that visit. Previous studies showed undetectable viral load and CD4 in the upper 200s. Imagin/25: Bibasilar infiltrates and small pulmonary effusions 07/14: CXR: Faint left lower lobe infiltrate
[2016-07-22] MEDS: ROBITUSSIN AC PO PRN ×3 (02:50→14:15)
[2016-07-22] MEDS: DILAUDID IV PRN ×2 (03:00→09:54)
[2016-07-22] MEDS ORDERED: PROVENTIL IH PRN (03:22)
[2016-07-22] MEDS: DUONEB 0.5 MG-3 MG/3 ML SOLN IH SCH ×5 (03:34→19:38)
[2016-07-22 06:46] LABS: Anion Gap 15 mmol/L; BUN/Creatinine Ratio 8.18; Blood Urea Nitrogen 9 mg/dL (7-17); Calcium 7.1 mg/dL (8.4-10.2); Carbon Dioxide 23 mmol/L (22-30); Chloride 98.9 mmol/L (98-107); Glucose 105 mg/dL (65-100); Potassium 3.9 mmol/L (3.6-5.0); Sodium 133 mmol/L (137-145)
[2016-07-22] MEDS: PERCOCET 5/325 PO PRN ×2 (06:46→14:00)
--- NOTE | 2016-07-22 09:41 | Progress Note ---
Assessment and Plan Current antibiotics: Levaquin 500 mg po q day 07/18 --> Previous antibiotics: Meropenem 1 g IV q24h 07/14-07/18 Vancomycin (pulse dose) IV 07/14-07/18 Clindamycin 600 mg IV X 1 07/14 Antiretrovirals: (on hold now) Truvada 1 tab po q day Norvir 100 mg po q day Darunavir 800 mg po q day ASSESSMENT: Helga Carroll is a 31 y/o female with HIV infection, type 2 DM and asthma who was admitted to [facility] on 07/14 with a several day history of anterior chest pain, cough with occasional "greenish sputum production, subjective fevers and chills and was found to be hypotensive in the ED. She was also found to have MARY. Problem list: 1. Haemophilus influenzae bacteremia & sepsis -07/27 bottles from 07/14 positive -Repeat blood cultures 07/17 - negative -Likely pulmonary or upper respiratory source -07/17 CXR with atelectasis but no definite pneumonia -Clinically improved 2. HIV infection -ARV therapy: Truvada, Norvir & darunavir -CD4 in the upper 200s and VL undetectable according to [place] records 3. MARY -? secondary to #1 -Transient HD that has now been stopped -Renal function is recovering 4. Leukocytosis -Secondary to #1 -Resolved 5. Penicillin allergy -"Tongue swells up" 6. Anemia PLAN: 1. Continue po Levaquin to complete 14 day course following documented negative blood cultures on 07/17. ( Antibiotic stop date 08/01/2016) 2. Okay to restart Truvada and darunavir/Norvir 3. Resume HIV follow at [place]. 4. Continued supportive measures Subjective Date of service: 07/22/16 Principal diagnosis: Haemophilus pneumonia, Sepsis; + HIV, acute kidney injury Interval history: Depressed affect. Complains of some abdominal pain. Objective - Exam Narrative Exam: HEENT: Pupils are equal reactive to light and accommodation. Conjunctiva clear. Oropharynx is normal with no evidence of oral candidiasis or pharyngitis. NECK: Supple. No enlargement of the thyroid gland. No significant cervical lymphadenopathy. No jugular venous distention at 30. LUNGS: Clear. HEART: Regular rate. S1 and S2 are normal. There are no murmurs, gallops, clicks or rubs heard. ABDOMEN: Soft and nontender. Liver and spleen are not palpably enlarged or tender. No palpable masses. Bowel sounds are normoactive. EXTREMITIES: No rash, peripheral lymphadenopathy, clubbing or edema. SKIN: No other rash, ulcers or wounds. Right chest wall line dressings clean. NEUROLOGIC: No focal findings. - Constitutional Vitals: Vital Signs Temp Pulse Resp BP Pulse Ox 98.6 F 94 H 16 129/72 93 07/22/16 08:06 07/22/16 08:11 07/22/16 08:11 07/22/16 08:06 07/22/16 08:06 Temperature -Last 24 Hours Temperature 98.6 F Temperature 99.5 F Temperature 100.2 F Temperature 99.4 F - Labs CBC & Chem 7: 07/20/16 05:45 07/22/16 05:40 Labs: Abnormal lab results 07/21/16 07/22/16 Range/Units 04:00 05:40 Sodium 133 L (137-145) mmol/L Glucose 113 H 105 H (65-100) mg/dL Calcium 7.5 L 7.1 L (8.4-10.2) mg/dL
[2016-07-22] MEDS: LEVAQUIN PO SCH (09:54)
[2016-07-22] MEDS: D5NS 1,000 ML IV SCH (09:54)
--- NOTE | 2016-07-22 16:20 | Discharge Summary ---
Providers - Providers Date of Admission: 07/14/16 20:37 Date of discharge: 07/22/16 Attending physician: ROBIN UMANA 07/14/16 21:06 Consult to Physician [CONS] Routine Consulting Provider: ANNELIESE FARRIS Reason For Exam: sepsis Place consult to:: jaret service Notified:: yes Phone number called:: [phone] Was contact made?: Yes If yes, spoke with:: Riddhi Time called:: 07:57 07/15/16 10:52 Consult to Physician [CONS] Routine Consulting Provider: MIRIAM HAYWOOD Reason For Exam: VAS CATH PLACEMENT Place consult to:: dr cuello Notified:: dr cuello Phone number called:: Was contact made?: Yes Time called:: 13:53 Primary care physician: MACHINE CLOTH MEASURER Hospitalization Reason for admission: renal failure chest pain sepsis Condition: Good Pertinent studies: Chest x-ray bilateral infiltrates. Ultrasound unremarkable. Renal ultrasound unremarkable. Procedures: Vas-Cath for hemodialysis. Hospital course: Alejandro Kumari is a 21-year-old female with a history of HIV AIDS presented originally with a chief complaint of right sided flank and chest pain associated with fever. During admission patient was found to be septic. Septic workup was negative for bacteria however was positive for influenza. Patient was diagnosed with bacteremia and sepsis secondary to H influenza. Patient had repeat cultures done from June were negative. He should hospital course was complicated by acute renal failure in which exact etiology for renal failure unknown however patient will require hemodialysis. Patient is kidneys responded to hemodialysis and they will to stop the hemodialysis. Renal function remained stable. Patient HIV meds were he'll secondary to sepsis and poor functional status patient back at baseline meds will be restarted. Patient will require follow-up at [facility]. Also may follow-up for acute kidney injury with Dr. Almeida. Also explained importance of completing Levaquin for 14 days. Disposition: DISCHARGED TO HOME OR SELFCARE - Discharge Diagnoses (1) Acute renal injury Status: Resolved Comment: Resolved after 3 episodes of hemodialysis. Kidneys responded. (2) Pneumonia Status: Acute Qualifiers: Pneumonia type: due to Haemophilus influenzae Laterality: left Lung location: lower lobe of lung Qualified Code(s): J14 - Pneumonia due to Hemophilus influenzae Comment: Stable culture positive. We'll continue Levaquin for total of 14 days to end on 08/01/2016 (3) Severe sepsis Status: Resolved (4) History of HIV or AIDS Status: Acute Comment: Place back on Truvada/Norvir/DarUNAVIR Core Measure Documentation - Palliative Care Palliative Care/ Comfort Measures: Not Applicable - Core Measures Any of the following diagnoses?: none - VTE Discharge Requirements Deep Vein Thrombosis/Pulmonary Embolism Present on Admission: No Exam - Constitutional Vitals: Temp Pulse Resp BP Pulse Ox 98.6 F 94 H 16 129/72 93 07/22/16 08:06 07/22/16 13:28 07/22/16 13:28 07/22/16 08:06 07/22/16 08:06 General appearance: Present: no acute distress, well-nourished - EENT Eyes: Present: PERRL ENT: hearing intact, clear oral mucosa - Neck Neck: Present: supple, normal ROM - Respiratory Respiratory effort: normal Respiratory: bilateral: CTA - Cardiovascular Heart Sounds: Present: S1 & S2. Absent: rub, click - Extremities Extremities: pulses symmetrical, No edema Peripheral Pulses: within normal limits - Abdominal General gastrointestinal: Present: soft, non-tender, non-distended, normal bowel sounds Female genitourinary: Present: normal - Integumentary Integumentary: Present: clear, warm, dry - Musculoskeletal Musculoskeletal: gait normal, strength equal bilaterally - Psychiatric Psychiatric: appropriate mood/affect, intact judgment & insight - Neurologic Neurologic: CNII-XII intact, moves all extremities Plan Activity: no restrictions Weight Bearing Status: Full Weight Bearing Diet: regular, renal Special Instructions: other (follow-up [facility].) Follow up with: PRIMARY CARE, [Primary Care Provider] - 3-5 Days Prescriptions: Benzonatate [Tessalon Perles] 100 mg PO Q8HR PRN #20 capsule PRN Reason: cough Darunavir [Prezista] 800 mg PO QDAY #30 tablet Ipratropium/Albuterol Sulfate [Duoneb 0.5 mg-3 mg/3 ml Soln] 1 ampul IH Q4HRT # 7 ampul.neb Levofloxacin [Levaquin TAB] 500 mg PO Q24HR #10 tablet Ritonavir [Norvir] 100 mg PO BID #60 tab oxyCODONE /ACETAMINOPHEN [Percocet 5/325 mg] 1 tab PO Q6H PRN #60 tablet PRN Reason: Pain, Moderate (4-6)
[2016-07-22 17:30] VITALS: BP 118/79
[2016-07-22] MEDS: TYLENOL PO PRN (18:30)
[2016-07-23] MEDS ORDERED: EMTRIVA 200 MG, VIREAD 300 MG PO SCH (10:00)
[2016-07-23] MEDS ORDERED: NORVIR PO SCH (10:00)
[2016-07-23] MEDS ORDERED: LEVAQUIN PO SCH (10:00)
[2016-07-23] MEDS ORDERED: PREZISTA PO SCH (10:00)
== END 2016-07-22 19:45 | disposition home or self-care (01) | DRG 974 ==
LOC: ED 14:00 → CC1 20:37 → 3A 07-16 14:31
PROVIDERS: ADMIT Internal Medicine; ATTEND Internal Medicine
PROC: 4A03XR1 Measurement of Arterial Saturation, Peripheral, External Approach (ICD-10-PCS; 2016-07-14)
PROC: 06HN33Z Insertion of Infusion Device into Left Femoral Vein, Percutaneous Approach (ICD-10-PCS; 2016-07-14)
PROC: B54CZZA Ultrasonography of Left Lower Extremity Veins, Guidance (ICD-10-PCS; 2016-07-14)
PROC: 05HM33Z Insertion of Infusion Device into Right Internal Jugular Vein, Percutaneous Approach (ICD-10-PCS; principal; 2016-07-15)
PROC: B513YZA Fluoroscopy of Right Jugular Veins using Other Contrast, Guidance (ICD-10-PCS; 2016-07-15)
PROC: 30233N1 Transfusion of Nonautologous Red Blood Cells into Peripheral Vein, Percutaneous Approach (ICD-10-PCS; 2016-07-18)
DX: A41.50 Gram-negative sepsis, unspecified (principal); B20 Human immunodeficiency virus [HIV] disease; E43 Unspecified severe protein-calorie malnutrition; R65.21 Severe sepsis with septic shock; N18.6 End stage renal disease; J14 Pneumonia due to Hemophilus influenzae; N17.9 Acute kidney failure, unspecified; I12.0 Hypertensive chronic kidney disease with stage 5 chronic kidney disease or end stage renal disease; J98.11 Atelectasis; I48.91 Unspecified atrial fibrillation; R07.9 Chest pain, unspecified; J45.909 Unspecified asthma, uncomplicated; D64.9 Anemia, unspecified; Z88.0 Allergy status to penicillin; E11.22 Type 2 diabetes mellitus with diabetic chronic kidney disease; Z68.25 Body mass index [BMI] 25.0-25.9, adult
CPT/HCPCS: 36415; 36556; 71010; 71020; 74020; 76770; 76937; 77001; 80048; 80074; 80202; 80307; 81001; 81025; 82140; 82570; 82803; 82962; 83735; 83880; 84156; 84165; 84300; 84439; 84443; 84484; 85007; 85025; 85610; 85730; 86021; 86160; 86850; 86900; 86901; 86920; 87040; 87076; 87086; 87185; 87400; 89050; 93005; 93010; 94640; 94760; 96361; 96365; 96367; 96368; 96375; 99292; A6250; C1752; C9113; J0282; J1170; J1644; J2185; J2405; J2543; J3010; J3370; J7030; J7040; J7042; J7070; P9016

== ENCOUNTER 2017-01-24 16:09 | Emergency (ER) | payer MEDICAID ==
[2017-01-24 16:30] VITALS: BP 114/80
[2017-01-24 17:10] LABS: Basophils % (Auto) 0.1 % (0.0-1.8); Eosinophils % (Auto) 0.5 % (0.0-4.3); Hematocrit 29.7 % (30.3-42.9); Hemoglobin 9.8 gm/dl (10.1-14.3); Mean Corpuscular HGB Conc 33 % (30-34); Mean Corpuscular Hemoglobin 27 pg (28-32); Mean Corpuscular Volume 83 fl (79-97); Platelet Count 251 K/mm3 (140-440); Red Blood Count 3.58 M/mm3 (3.65-5.03); Red Cell Distribution Width 13.1 % (13.2-15.2); White Blood Count 4.1 K/mm3 (4.5-11.0)
[2017-01-24 17:32] LABS: Alanine Aminotransferase 39 units/L (7-56); Albumin 3.5 g/dL (3.9-5); Albumin/Globulin Ratio 0.5 %; Alkaline Phosphatase 87 units/L (35-129); Anion Gap 14 mmol/L; Blood Urea Nitrogen 12 mg/dL (7-17); Calcium 8.8 mg/dL (8.4-10.2); Carbon Dioxide 25 mmol/L (22-30); Chloride 98.9 mmol/L (98-107); Glucose 116 mg/dL (65-100); Sodium 134 mmol/L (137-145); Total Protein 10.3 g/dL (6.3-8.2)
--- NOTE | 2017-01-25 18:29 | ED Elopement Review ---
ED Pt Elopement review - Results review Lab results: Laboratory Tests 01/24/17 01/24/17 01/24/17 16:46 16:46 16:46 WBC 4.1 L RBC 3.58 L Hgb 9.8 L Hct 29.7 L MCV 83 MCH 27 L MCHC 33 RDW 13.1 L Plt Count 251 Lymph % (Auto) 37.8 H [place] % (Auto) 7.9 H Eos % (Auto) 0.5 Baso % (Auto) 0.1 Lymph # 1.5 [place] # 0.3 Eos # 0.0 Baso # 0.0 Seg Neutrophils % 53.7 Seg Neutrophils # 2.2 Sodium 134 L Potassium 4.0 Chloride 98.9 Carbon Dioxide 25 Anion Gap 14 BUN 12 Creatinine 0.8 Estimated GFR > 60 BUN/Creatinine Ratio 15.00 Glucose 116 H Calcium 8.8 Total Bilirubin 0.50 AST 47 H ALT 39 Alkaline Phosphatase 87 Total Protein 10.3 H Albumin 3.5 L Albumin/Globulin Ratio 0.5 HCG, Qual Negative - Call Back decision Pt Call Back Decision: Pt to F/U with PMD
== END 2017-01-24 19:00 | disposition left against medical advice (07) ==
LOC: ED 16:09
DX: Z53.21 Procedure and treatment not carried out due to patient leaving prior to being seen by health care provider (principal)
CPT/HCPCS: 36415; 80053; 84703; 85025; 93005; 93010

== ENCOUNTER 2017-05-26 23:50 | Emergency (ER) | payer MEDICAID | END 2017-05-27 00:25 | disposition left against medical advice (07) | LOC: ED 23:50 | DX: R55 Syncope and collapse (principal); Z53.21 Procedure and treatment not carried out due to patient leaving prior to being seen by health care provider ==

== ENCOUNTER 2017-09-25 16:18 | Emergency (ER) | payer MEDICAID ==
[2017-09-25] MEDS ORDERED: TYLENOL PO ONE (19:23)
[2017-09-25] MEDS ORDERED: MOTRIN PO ONE (19:23)
--- NOTE | 2017-09-25 19:24 | Emergency Department Report ---
Blank Doc - Documentation Documentation: Patient is a 32-year-old female who presents with vaginal bleeding and pelvic pain enhancing off the last 2 years. Patient had the [place] earlier Placed 2 years ago at [facility]. After of her son she has since not followed up and states that she has even more pain.
[2017-09-25 19:36] LABS: Basophils % (Auto) 0.5 % (0.0-1.8); Eosinophils % (Auto) 0.8 % (0.0-4.3); Hematocrit 29.9 % (30.3-42.9); Hemoglobin 9.9 gm/dl (10.1-14.3); Lymphocytes # (Auto) 1.5 K/mm3 (1.2-5.4); Lymphocytes % (Auto) 44.8 % (13.4-35.0); Mean Corpuscular HGB Conc 33 % (30-34); Mean Corpuscular Hemoglobin 27 pg (28-32); Mean Corpuscular Volume 82 fl (79-97); Monocytes # (Auto) 0.3 K/mm3 (0.0-0.8); Monocytes % (Auto) 10.1 % (0.0-7.3); Platelet Count 231 K/mm3 (140-440); Red Blood Count 3.64 M/mm3 (3.65-5.03); Red Cell Distribution Width 13.6 % (13.2-15.2)
[2017-09-25 19:48] LABS: Alanine Aminotransferase 17 units/L (7-56); Albumin 3.3 g/dL (3.9-5); BUN/Creatinine Ratio 11; Blood Urea Nitrogen 8 mg/dL (7-17); Calcium 8.8 mg/dL (8.4-10.2); Hemolysis Index 1
[2017-09-25 22:31] LABS: Bilirubin,Urine NEG (Negative); Blood,Urine NEG (Negative); Color,Urine Yellow (Yellow); Mucus,Urine FEW /HPF; Protein,Urine <15 mg/dL mg/dL (Negative); RBC,Urine < 1.0 /HPF (0.0-6.0); Urobilinogen,Urine < 2.0 mg/dL (<2.0)
[2017-09-25 22:32] LABS: HCG Qualitative,Urine Negative (Negative)
[2017-09-25 23:42] VITALS: BP 132/83
--- NOTE | 2017-09-25 23:55 | Emergency Department Report ---
HPI - General Chief Complaint: Urogenital-Female - HPI HPI: Patient complains of irregular menstrual cycle. Complaining of pelvic discomfort with motion cycle. Patient has not seen CAREER AGENT for her symptoms. Patient denies any chance of . Denies dysuria, dyspareunia, vaginal discharge. ED Past Medical Hx - Past Medical History Previous Medical History?: Yes Hx Congestive Heart Failure: Yes Hx Diabetes: Yes Hx Asthma: Yes Hx HIV: Yes (2003) Additional medical history: HIV positive - Surgical History Past Surgical History?: Yes Additional Surgical History: Mirena - Social History Smoking Status: Current Every Day Smoker - Medications Home Medications: Home Medications Medication Instructions Recorded Confirmed Last Taken Type Benzonatate [Tessalon Perles] 100 mg PO Q8HR PRN #20 capsule 07/22/16 Unknown Rx Darunavir [Prezista] 800 mg PO QDAY #30 tablet 07/22/16 Unknown Rx Emtricitabine/Tenofovir (Tdf) 1 each PO DAILY #30 tablet 07/22/16 Unknown Rx [Truvada 133 mg-200 mg Tablet] Ipratropium/Albuterol Sulfate 1 ampul IH Q4HRT #7 ampul.neb 07/22/16 Unknown Rx [DUONEB *Not for PRN Use*] Levofloxacin [Levaquin TAB] 500 mg PO Q24HR #10 tablet 07/22/16 Unknown Rx Ritonavir [Norvir] 100 mg PO BID #60 tab 07/22/16 Unknown Rx oxyCODONE /ACETAMINOPHEN [Percocet 1 tab PO Q6H PRN #60 tablet 07/22/16 Unknown Rx 5/325 mg] Cyclobenzaprine [Flexeril] 10 mg PO TID PRN #30 tablet 09/25/17 Unknown Rx ED Review of Systems ROS: Stated complaint: PELVIC PAIN Other details as noted in HPI Comment: All other systems reviewed and negative Gastrointestinal: denies: abdominal pain, nausea, vomiting Genitourinary: abnormal menses. denies: urgency, dysuria, dyspareunia Physical Exam - Physical Exam Vital Signs: Vital Signs 09/25/17 09/25/17 09/25/17 16:22 19:33 19:34 Temperature 97.9 F Pulse Rate 88 Respiratory 18 18 18 Rate Blood Pressure 117/71 Blood Pressure [Left] O2 Sat by Pulse 100 Oximetry 09/25/17 09/25/17 23:41 23:42 Temperature 98.5 F Pulse Rate 91 H Respiratory 16 16 Rate Blood Pressure Blood Pressure 132/83 [Left] O2 Sat by Pulse 97 97 Oximetry Physical Exam: - Physical Exam Physical Exam: - General Limitations: No Limitations General appearance: alert, in no apparent distress. - Head Head exam: Present: atraumatic, normocephalic - Eye Eye exam: Present: normal appearance - ENT ENT exam: Present: mucous membranes moist - Neck Neck exam: Present: normal inspection - Respiratory Respiratory exam: Present: normal lung sounds bilaterally. Absent: respiratory distress - Cardiovascular Cardiovascular Exam: Present: normal rhythm, normal rate. Absent: systolic murmur, diastolic murmur, rubs, gallop - GI/Abdominal GI/Abdominal exam: Present: soft, normal bowel sounds - Extremities Exam Extremities exam: Present: normal inspection - Back Exam Back exam: Present: normal inspection - Neurological Exam Neurological exam: Present: alert, oriented X3 - Psychiatric Psychiatric exam: normal affect and mood - Skin Skin exam: Present: warm, dry, intact, normal color. Absent: rash ED Course Vital Signs 09/25/17 09/25/17 09/25/17 16:22 19:33 19:34 Temperature 97.9 F Pulse Rate 88 Respiratory 18 18 18 Rate Blood Pressure 117/71 Blood Pressure [Left] O2 Sat by Pulse 100 Oximetry 09/25/17 09/25/17 23:41 23:42 Temperature 98.5 F Pulse Rate 91 H Respiratory 16 16 Rate Blood Pressure Blood Pressure 132/83 [Left] O2 Sat by Pulse 97 97 Oximetry ED Medical Decision Making - Lab Data Result diagrams: 09/25/17 19:27 09/25/17 19:27 Critical care attestation.: If time is entered above; I have spent that time in minutes in the direct care of this critically ill patient, excluding procedure time. ED Disposition Clinical Impression: Abnormal vaginal bleeding Disposition: DC-01 TO HOME OR SELFCARE Is pt being admited?: No Does the pt Need Aspirin: No Condition: Stable Instructions: Dysfunctional Uterine Bleeding (ED) Prescriptions: Cyclobenzaprine [Flexeril] 10 mg PO TID PRN #30 tablet PRN Reason: Muscle Spasm Referrals: PRIMARY CARE, [Primary Care Provider] - 3-5 Days CHANG BERGER MD [Staff Physician] - 3-5 Days
== END 2017-09-26 00:16 | disposition home or self-care (01) ==
LOC: ED 16:18
DX: N93.9 Abnormal uterine and vaginal bleeding, unspecified (principal); I50.9 Heart failure, unspecified; E11.9 Type 2 diabetes mellitus without complications; F17.200 Nicotine dependence, unspecified, uncomplicated
CPT/HCPCS: 36415; 80053; 81001; 81025; 85025; 99284

== ENCOUNTER 2017-11-07 06:31 | Day surgery (SDC) | payer MEDICAID ==
[~2017-11-07 06:31] MED LIST: LACTATED RINGERS 1,000 ML IV SCH; VERSED IV NR
[2017-11-07] MEDS ORDERED: GARAMYCIN IV SCH (07:15)
--- NOTE | 2017-11-07 07:15 | Short Stay Summary ---
Short Stay Documentation Date of service: 11/07/17 Narrative H&P: Pt is a 32yo BF LMP 10/11/17 presents for surgical evaluation and treatment for a malpositioned IUD. Pelvic u/s showed an IUD in the lower uterine segment that was unable to be removed in the office. She is therefore scheduled for a Hysteroscopic retrieval of IUD. - History Principal diagnosis: Malpositioned IUD H&P: obtained from office Past Medical History: No medical history Past Surgical History: (x3), Other (kidney biopsy) Social history: no significant social history, single - Allergies and Medications Current Medications: Allergies Penicillins Allergy (Verified 11/04/17 13:28) Swelling Home Medications Medication Instructions Recorded Confirmed Last Taken Type No Known Home Medications [No 11/04/17 11/04/17 Unknown History Reported Home Medications] Active Medications Lactated Ringer's (Lactated Ringers) 1,000 mls @ 100 mls/hr IV DIRECT DARYA Midazolam HCl (Versed) 2 mg IV PREOP NR Stop: 11/07/17 23:59 - Physical exam General appearance: no acute distress Integumentary: no rash HEENT: Atraumatic Lungs: Clear to auscultation Breasts: deferred Heart: Regular rate Gastrointestinal: normal Female Genitourinary: deferred Rectal Exam: deferred Extremities: no ischemia, No edema Neurological: Normal gait, Normal speech - Brief post op/procedure progress note Date of procedure: 11/07/17 Pre-op diagnosis: Malpositioned IUD Post-op diagnosis: same Procedure: Hysteroscopic retrieval of malpositioned IUD Anesthesia: MAC Findings: A normal uterus with anteflexed cervix. IUD removed without difficulty. Surgeon: CHANG BERGER Estimated blood loss: none Pathology: list (IUD) Specimen disposition: to lab Condition: stable - Hospital course Hospital course: Unremarkable. - Disposition Condition at discharge: Good Disposition: DC-01 TO HOME OR SELFCARE - Discharge Diagnoses (1) Malpositioned intrauterine device (IUD) Status: Resolved Qualifiers: Encounter type: subsequent encounter Qualified Code(s): T83.32XD - Displacement of intrauterine contraceptive device, subsequent encounter Short Stay Discharge Plan Activity: no restrictions Diet: regular Follow up with: ERAN POSADA MD [Primary Care Provider] - 7 Days CHANG BERGER MD [Staff Physician] - 14 Days Prescriptions: Ibuprofen [Motrin] 800 mg PO Q8HR PRN #20 tablet PRN Reason: Pain, Moderate (4-6)
[2017-11-07] MEDS ORDERED: ZOFRAN IV PRN (07:29)
[2017-11-07] MEDS ORDERED: PERCOCET 5/325 PO PRN (07:29)
[2017-11-07] MEDS ORDERED: TORADOL IV PRN (07:29)
[2017-11-07] MEDS ORDERED: NACL BACTERIOSTATIC INFILTRATI ONE (07:46)
--- NOTE | 2017-11-07 07:50 | Anesthesia Day of Surgery ---
Anesthesia Day of Surgery - Day of Surgery Patient Examined: Yes Patient H&P Reviewed: Yes Patient is NPO: Yes
--- NOTE | 2017-11-07 07:50 | Anesthesia Consultation ---
Anesthesia Consult and Med Hx Date of service: 11/07/17 - Airway Anesthetic Teeth Evaluation: Good ROM Head & Neck: Adequate Mental/Hyoid Distance: Adequate Mallampati Class: Class II Intubation Access Assessment: Probably Good - Pulmonary Exam CTA: Yes - Cardiac Exam Cardiac Exam: RRR - Pre-Operative Health Status ASA Pre-Surgery Classification: ASA2 Proposed Anesthetic Plan: General - Pulmonary Hx Smoking: No Hx Asthma: No - Cardiovascular System Hx Hypertension: No - Central Nervous System Hx Neuromuscular Disorder: No Hx Psychiatric Problems: No - Hematic Hx Anemia: Yes - Other Systems Hx Substance Use: Yes (Marijuana last used 2 mos ago) Hx Cancer: No
[2017-11-07] MEDS ORDERED: GARAMYCIN/NS 120MG/100ML 120 MG/100 ML BAG IV SCH (08:00)
[2017-11-07] MEDS ORDERED: CLEOCIN 600 MG/50 mL 600 MG/50 ML BAG IV NR (08:00)
[2017-11-07] MEDS ORDERED: SUBLIMAZE ONE (08:30)
[2017-11-07] MEDS ORDERED: DIPRIVAN 10 MG/ML IV ONE (08:30)
[2017-11-07] MEDS ORDERED: DECADRON ONE (08:32)
[2017-11-07 08:58] LABS: Hematocrit 30.6 % (30.3-42.9); Hemoglobin 10.4 gm/dl (10.1-14.3)
[2017-11-07] MEDS ORDERED: ZOFRAN ONE (09:00)
--- NOTE | 2017-11-07 09:37 | Operative Report ---
Operative Report Operative Report: Date of procedure: 11/07/2017 Pre-operative diagnosis: Malpositioned IUD Post-operative diagnosis: Same Procedure name(s): Hysteroscopic retrieval of malpositioned IUD Surgeon: Charles Neely MD Heel Seat Flap Stapler: None Anesthesia: Gen. mask EBL: Minimal Findings: A normal uterus with anteflexed cervix. IUD removed without difficulty Procedure: After the patient was correctly identified, she was prepped and draped in usual sterile fashion and placed in the dorsolithotomy position. First the bladder was entered using a straight catheter, and next the anterior lip of the cervix was grasped using single-tooth tenaculum after the patient was placed in Trendelenburg positioning. The cervix was anteflexed almost behind the pubic bone. The cervical os was sequentially dilated, and the hysteroscope was introduced. The IUD string was visible in the uterine cavity. It was then grasped and removed without complications and sent to pathology. At this point the procedure was considered complete. All instruments removed from the vagina. The patient tolerated the procedure well and was transported to recovery room in stable condition.
[2017-11-07] MEDS: DILAUDID IV PRN ×2 (10:00→10:05)
--- NOTE | 2017-11-07 10:09 | Post Anesthesia Evaluation ---
- Post Anesthesia Evaluation Patient Participated: Yes Airway Patent: Yes Stable Respiratory Function: Yes Nausea/Vomiting: No Temp > 96.8F: Yes Pain Manageable: Yes Adequeate Hydration: Yes Anesthesia Complications: No Block Receding Appropriately: Not Applicable Patient on Ventilator: No
[2017-11-07 11:44] VITALS: BP 116/79
== END 2017-11-07 12:00 | disposition home or self-care (01) ==
LOC: OR 06:31
PROVIDERS: ATTEND Obstetrics & Gynecology
DX: T83.32XA Displacement of intrauterine contraceptive device, initial encounter (principal); Z98.890 Other specified postprocedural states; Z88.0 Allergy status to penicillin; Y83.1 Surgical operation with implant of artificial internal device as the cause of abnormal reaction of the patient, or of later complication, without mention of misadventure at the time of the procedure
CPT/HCPCS: 36415; 58562; 81025; 85014; 85018; 88300; J1100; J1170; J1580; J2250; J2405; J2704; J3010; J7120; 88302

== ENCOUNTER 2017-11-11 12:15 | Emergency (ER) | payer MEDICAID ==
[2017-11-11 13:42] LABS: Basophils % (Auto) 0.3 % (0.0-1.8); Eosinophils # (Auto) 0.1 K/mm3 (0.0-0.4); Eosinophils % (Auto) 1.7 % (0.0-4.3); Hematocrit 27.3 % (30.3-42.9); Hemoglobin 9.3 gm/dl (10.1-14.3); Lymphocytes # (Auto) 1.1 K/mm3 (1.2-5.4); Lymphocytes % (Auto) 26.1 % (13.4-35.0); Mean Corpuscular HGB Conc 34 % (30-34); Mean Corpuscular Hemoglobin 28 pg (28-32); Mean Corpuscular Volume 81 fl (79-97); Monocytes # (Auto) 0.4 K/mm3 (0.0-0.8); Monocytes % (Auto) 9.4 % (0.0-7.3); Platelet Count 234 K/mm3 (140-440); Red Blood Count 3.36 M/mm3 (3.65-5.03); Red Cell Distribution Width 13.6 % (13.2-15.2)
--- NOTE | 2017-11-11 13:47 | XRay Report ---
ROUTINE CHEST, TWO VIEWS: HISTORY: Shortness of breath. The trachea, heart, mediastinal contour, lung blue and bony thorax are unremarkable. IMPRESSION: Unremarkable chest x-ray.
[2017-11-11 13:53] LABS: BUN/Creatinine Ratio 20; Blood Urea Nitrogen 20 mg/dL (7-17); Calcium 8.4 mg/dL (8.4-10.2); Hemolysis Index 1
[2017-11-11] MEDS ORDERED: ZOFRAN IV ONE (16:20)
[2017-11-11] MEDS ORDERED: SUBLIMAZE IV ONE ×2 (16:20→17:00)
[2017-11-11] MEDS ORDERED: NACL 0.9% 1000 ML 1,000 ML IV ONE (16:20)
--- NOTE | 2017-11-11 16:23 | Emergency Department Report ---
ED General Adult HPI - General Chief complaint: Dyspnea/Respdistress Stated complaint: CP/SOB/ABD PAIN Time Seen by Provider: 11/11/17 16:14 Source: patient Mode of arrival: Ambulatory Limitations: No Limitations - History of Present Illness Initial comments: Patient is a 32 years old female with no significant past medical history. Patient presents to the ER complaining of chest pain or shortness of breath and lower abdominal pain. Patient had hysteroscopy 4 days ago for mal-position IUD by Dr. Charles Neely. Patient denied any fever, nausea or vomiting. She describes her chest pain as sharp, increase with deep breathing. She denied any cough. - Related Data Previous Rx's Medication Instructions Recorded Last Taken Type Ibuprofen [Motrin] 800 mg PO Q8HR PRN #20 tablet 11/07/17 Unknown Rx Ondansetron [Zofran Odt] 4 mg PO Q8HR PRN #14 tab.rapdis 11/11/17 Unknown Rx traMADol [Ultram 50 MG tab] 50 mg PO Q4HR PRN #14 tablet 11/11/17 Unknown Rx Allergies Allergy/AdvReac Type Severity Reaction Status Date / Time Penicillins Allergy Swelling Verified 11/04/17 13:28 ED Review of Systems ROS: Stated complaint: CP/SOB/ABD PAIN Other details as noted in HPI Comment: All other systems reviewed and negative Constitutional: denies: chills, fever Respiratory: shortness of breath. denies: cough Cardiovascular: chest pain, palpitations Gastrointestinal: abdominal pain, nausea. denies: vomiting, diarrhea, constipation, hematemesis, melena, hematochezia Genitourinary: denies: urgency, dysuria, frequency, hematuria Musculoskeletal: denies: back pain Neurological: denies: headache, weakness, numbness, paresthesias, confusion, abnormal gait ED Past Medical Hx - Past Medical History Previous Medical History?: Yes Hx Hypertension: No Hx Asthma: No Hx HIV: No (Pt verbally denies although noted in medical history) Additional medical history: HIV positive - Surgical History Past Surgical History?: Yes Additional Surgical History: Mirena, HYSTEROSCOPY - Social History Smoking Status: Never Smoker Substance Use Type: Prescribed - Medications Home Medications: Home Medications Medication Instructions Recorded Confirmed Last Taken Type Ibuprofen [Motrin] 800 mg PO Q8HR PRN #20 tablet 11/07/17 Unknown Rx Ondansetron [Zofran Odt] 4 mg PO Q8HR PRN #14 tab.rapdis 11/11/17 Unknown Rx traMADol [Ultram 50 MG tab] 50 mg PO Q4HR PRN #14 tablet 11/11/17 Unknown Rx ED Physical Exam - General Limitations: No Limitations General appearance: alert, in no apparent distress - Head Head exam: Present: atraumatic, normocephalic, normal inspection - Eye Eye exam: Present: normal appearance, PERRL - ENT ENT exam: Present: normal exam, normal orophraynx, mucous membranes moist - Neck Neck exam: Present: normal inspection, full ROM. Absent: tenderness, meningismus, lymphadenopathy, thyromegaly - Respiratory Respiratory exam: Present: normal lung sounds bilaterally. Absent: respiratory distress, wheezes, rales, rhonchi, stridor, chest wall tenderness, accessory muscle use, decreased breath sounds, prolonged expiratory - Cardiovascular Cardiovascular Exam: Present: tachycardia - GI/Abdominal GI/Abdominal exam: Present: soft, tenderness (lower abdominal pain), normal bowel sounds. Absent: distended, guarding, rebound, rigid, organomegaly, mass, bruit, pulsatile mass, hernia - Extremities Exam Extremities exam: Present: normal inspection, full ROM, normal capillary refill - Back Exam Back exam: Present: normal inspection, full ROM. Absent: tenderness, CVA tenderness (R), CVA tenderness (L), muscle spasm, paraspinal tenderness, vertebral tenderness - Neurological Exam Neurological exam: Present: alert, oriented X3, CN II-XII intact, normal gait, reflexes normal - Skin Skin exam: Present: warm, intact, normal color ED Course Vital Signs 11/11/17 11/11/17 11/11/17 12:38 19:24 19:30 Temperature 97.8 F 98.5 F Pulse Rate 102 H 97 H 97 H Respiratory 20 15 14 Rate Blood Pressure 124/85 131/83 116/76 Blood Pressure 131/83 [Left] O2 Sat by Pulse 98 100 100 Oximetry 11/11/17 19:37 Temperature 98.2 F Pulse Rate Respiratory Rate Blood Pressure Blood Pressure [Left] O2 Sat by Pulse Oximetry ED Medical Decision Making - Lab Data Result diagrams: 11/11/17 13:23 11/11/17 13:23 - Radiology Data Radiology results: report reviewed Referring Physician: JAMIL MCFARLAND Patient Name: ROGELIO DE LA VEGA Date of : 1985 Sex: Female Report Date: 2017-11-11 Report Status: Finalized Findings [address] [address] Cat Scan Report Signed Patient: ROGELIO DE LA VEGA MR#: [id number] : 1985 Acct:[id number] Age/Sex: 32 / F ADM Date: 11/11/17 Loc: ED Attending Dr: Ordering Physician: JAMIL MCFARLAND Date of Service: 11/11/17 Procedure(s): CT angio chest Accession Number(s): [id number] cc: JAMIL MCFARLAND FINAL REPORT EXAM: CT ANGIO CHEST HISTORY: CHEST PAIN WITH SOB TECHNIQUE: High-resolution helical axial images were obtained of the chest during intravenous administration of iodinated contrast. Images are reconstructed in the sagittal and coronal planes. PRIORS: None. FINDINGS: There is no evidence of pulmonary embolism, the pulmonary arteries opacify normally. The heart and thoracic aorta appear normal. The lungs are clear. The bones are unremarkable. IMPRESSION: 1. No evidence of pulmonary embolism. 2. No acute findings in the chest Transcribed By: [facility] [place]ictated By: AMEYA MARIN MD Electronically Authenticated By: AMEYA MARIN MD Signed Date/Time: 11/11/171900 Referring Physician: JAMIL MCFARLAND Patient Name: ROGELIO DE LA VEGA Date of : 1985 Sex: Female Report Date: 2017-11-11 Report Status: Finalized Findings [address] [address] Cat Scan Report Signed Patient: ROGELIO DE LA VEGA MR#: [id number] : 1985 Acct:[id number] Age/Sex: 32 / F ADM Date: 11/11/17 Loc: ED Attending Dr: Ordering Physician: JAMIL MCFARLAND Date of Service: 11/11/17 Procedure(s): CT abdomen pelvis w con Accession Number(s): [id number] cc: JAMIL MCFARLAND FINAL REPORT EXAM: CT ABDOMEN PELVIS W CON HISTORY: abdominal pain/hysteroscope 4 days ago TECHNIQUE: Dynamic helical CT scan through the abdomen and pelvis during and again after for fix dot for intravenous injection of iodinated contrast. Images are reconstructed in the sagittal and coronal planes. Oral contrast was not given. PRIORS: None. FINDINGS: There are numerous enlarged mesenteric, retroperitoneal, pelvic and inguinal lymph nodes. The liver, pancreas, spleen and adrenal glands appear normal. There are multiple calcified stones in an otherwise normal-appearing gallbladder. The kidneys appear normal. The uterus and ovaries appear grossly normal. The stomach appears grossly within normal limits. There are no abnormally dilated loops of bowel or acute inflammatory changes. A normal-appearing appendix is identified. The abdominal aorta has a normal diameter. The bones and subcutaneous soft tissues are unremarkable for age. IMPRESSION: 1. Diffuse adenopathy. Further clinical evaluation to evaluate for lymphoma is recommended. 2. Cholelithiasis without CT evidence of acute cholecystitis Transcribed By: [facility] [place]ictated By: AMEYA MARIN MD Electronically Authenticated By: AMEYA MARIN MD Signed Date/Time: 11/11/171915 DD/ 15 TD/TT: 11/11/171915 DD/ 00 TD/TT: 11/11/171900 - Medical Decision Making Patient stated that she is feeling better, I informed the patient about her CT abdomen and pelvis finding which show Diffuse adenopathy. Further clinical evaluation to evaluate for lymphoma is recommended. I strongly advised the patient to follow-up with her primary care physician for further evaluation and referral to hematology. Critical care attestation.: If time is entered above; I have spent that time in minutes in the direct care of this critically ill patient, excluding procedure time. ED Disposition Clinical Impression: Abdominal pain, Status post hysteroscopy, Gallbladder stone with nonacute cholecystitis Disposition: -01 TO HOME OR SELFCARE Is pt being admited?: No Condition: Stable Instructions: Biliary Colic (ED), Lymphadenopathy (ED), Abdominal Pain (ED) Additional Instructions: Please follow-up with your primary care physician for further management for your enlarged lymph nodes and possible referral to hematology to rule out lymphoma. Prescriptions: Ondansetron [Zofran Odt] 4 mg PO Q8HR PRN #14 tab.rapdis PRN Reason: Nausea And Vomiting traMADol [Ultram 50 MG tab] 50 mg PO Q4HR PRN #14 tablet PRN Reason: Pain Referrals: PRIMARY CARE,MD [Primary Care Provider] - 3-5 Days
[2017-11-11 17:46] LABS: HCG Qualitative,Urine Negative (Negative)
--- NOTE | 2017-11-11 19:04 | Cat Scan Report ---
FINAL REPORT EXAM: CT ANGIO CHEST HISTORY: CHEST PAIN WITH SOB TECHNIQUE: High-resolution helical axial images were obtained of the chest during intravenous administration of iodinated contrast. Images are reconstructed in the sagittal and coronal planes. PRIORS: None. FINDINGS: There is no evidence of pulmonary embolism, the pulmonary arteries opacify normally. The heart and thoracic aorta appear normal. The lungs are clear. The bones are unremarkable. IMPRESSION: 1. No evidence of pulmonary embolism. 2. No acute findings in the chest
--- NOTE | 2017-11-11 19:20 | Cat Scan Report ---
FINAL REPORT EXAM: CT ABDOMEN PELVIS W CON HISTORY: abdominal pain/hysteroscope 4 days ago TECHNIQUE: Dynamic helical CT scan through the abdomen and pelvis during and again after for fix dot for intravenous injection of iodinated contrast. Images are reconstructed in the sagittal and coronal planes. Oral contrast was not given. PRIORS: None. FINDINGS: There are numerous enlarged mesenteric, retroperitoneal, pelvic and inguinal lymph nodes. The liver, pancreas, spleen and adrenal glands appear normal. There are multiple calcified stones in an otherwise normal-appearing gallbladder. The kidneys appear normal. The uterus and ovaries appear grossly normal. The stomach appears grossly within normal limits. There are no abnormally dilated loops of bowel or acute inflammatory changes. A normal-appearing appendix is identified. The abdominal aorta has a normal diameter. The bones and subcutaneous soft tissues are unremarkable for age. IMPRESSION: 1. Diffuse adenopathy. Further clinical evaluation to evaluate for lymphoma is recommended. 2. Cholelithiasis without CT evidence of acute cholecystitis
[2017-11-11] MEDS ORDERED: TORADOL IV ONE (19:56)
[2017-11-11 20:09] VITALS: BP 130/78
== END 2017-11-11 20:22 | disposition home or self-care (01) ==
LOC: ED 12:15
DX: K80.10 Calculus of gallbladder with chronic cholecystitis without obstruction (principal); R07.89 Other chest pain; R06.02 Shortness of breath; Z88.0 Allergy status to penicillin; Z98.890 Other specified postprocedural states
CPT/HCPCS: 36415; 71046; 71275; 74177; 80048; 81025; 84484; 85025; 85379; 93005; 93010; 96361; 96374; 96375; 99285; J1885; J2405; J3010; J7030; Q9967

== ENCOUNTER 2017-12-02 07:35 | Emergency (ER) | payer MEDICAID ==
[2017-12-02] MEDS ORDERED: MOTRIN PO ONE (09:19)
--- NOTE | 2017-12-02 09:22 | Emergency Department Report ---
Blank Doc - Documentation Documentation: Pt is presenting with 3 weeks of vaginal bleeding. Pt had an IUD removed 3 weeks ago. heavy clots present. pt states that she is is pain in lower abd. cramy. Pt had hx of 4 blood transfusions in the past. +dysuria. CBC ordered to rule out anemia. preg test done as well. If labs nl may consider provera and OBGYN follow up
[2017-12-02 09:47] LABS: Hemoglobin 9.4 gm/dl (10.1-14.3); Mean Corpuscular HGB Conc 33 % (30-34); Mean Corpuscular Hemoglobin 27 pg (28-32); Mean Corpuscular Volume 83 fl (79-97); Platelet Count 278 K/mm3 (140-440); Red Blood Count 3.49 M/mm3 (3.65-5.03); Red Cell Distribution Width 13.8 % (13.2-15.2)
[2017-12-02 09:57] LABS: BUN/Creatinine Ratio 14; Blood Urea Nitrogen 11 mg/dL (7-17); Calcium 8.5 mg/dL (8.4-10.2); Hemolysis Index 3
[2017-12-02 10:19] LABS: Partial Thromboplastin Time 33.7 Sec. (24.2-36.6)
--- NOTE | 2017-12-02 11:27 | Emergency Department Report ---
ED Female HPI - General Chief complaint: Vaginal Bleeding Stated complaint: VOMITTING Time Seen by Provider: 12/02/17 09:16 Source: patient Mode of arrival: Ambulatory Limitations: No Limitations - History of Present Illness Initial comments: Pt is presenting with 3 weeks of vaginal bleeding. Pt had an IUD removed 3 weeks ago. heavy clots present. pt states that she is is pain in lower abd. cramy. Pt had hx of 4 blood transfusions in the past. +dysuria. CBC ordered to rule out anemia. preg test done as well. If labs nl may consider provera and OBGYN follow up MD Complaint: vaginal bleeding, dysuria Onset/Timin -: week(s) Severity: moderate Severity scale (0 -10): 3 Quality: cramping Consistency: intermittent Improves with: none Worsens with: none Are you Now?: No Last Menstrual Period: 11/11/17 EDC: 08/18/18 Associated Symptoms: vaginal bleeding, dysuria. denies: nausea/vomiting, fever/ chills, headaches, loss of appetite, hematuria, rash, seizure, shortness of breath, syncope, weakness - Related Data Sexually active: Yes Previous Rx's Medication Instructions Recorded Last Taken Type Ibuprofen [Motrin] 800 mg PO Q8HR PRN #20 tablet 11/07/17 Unknown Rx Ondansetron [Zofran Odt] 4 mg PO Q8HR PRN #14 tab.rapdis 11/11/17 Unknown Rx traMADol [Ultram 50 MG tab] 50 mg PO Q4HR PRN #14 tablet 11/11/17 Unknown Rx medroxyPROGESTERone ACETATE 10 mg PO QDAY #10 tablet 12/02/17 Unknown Rx [Provera] traMADol [Ultram] 50 mg PO Q8HR PRN #15 tablet 12/02/17 Unknown Rx Allergies Allergy/AdvReac Type Severity Reaction Status Date / Time Penicillins Allergy Swelling Verified 11/04/17 13:28 ED Review of Systems ROS: Stated complaint: VOMITTING Other details as noted in HPI Constitutional: denies: chills, fever Eyes: denies: eye pain, eye discharge, vision change ENT: denies: ear pain, throat pain Respiratory: denies: cough, shortness of breath, wheezing Cardiovascular: denies: chest pain, palpitations Endocrine: no symptoms reported Gastrointestinal: denies: abdominal pain, nausea, diarrhea Genitourinary: denies: urgency, dysuria, discharge Musculoskeletal: denies: back pain, joint swelling, arthralgia Skin: denies: rash, lesions Neurological: denies: headache, weakness, paresthesias Psychiatric: denies: anxiety, depression Hematological/Lymphatic: denies: easy bleeding, easy bruising ED Past Medical Hx - Past Medical History Hx Hypertension: No Hx Asthma: No Hx HIV: Yes Additional medical history: HIV positive - Surgical History Additional Surgical History: Mirena, HYSTEROSCOPY - Social History Smoking Status: Never Smoker Substance Use Type: None - Medications Home Medications: Home Medications Medication Instructions Recorded Confirmed Last Taken Type Ibuprofen [Motrin] 800 mg PO Q8HR PRN #20 tablet 11/07/17 Unknown Rx Ondansetron [Zofran Odt] 4 mg PO Q8HR PRN #14 tab.rapdis 11/11/17 Unknown Rx traMADol [Ultram 50 MG tab] 50 mg PO Q4HR PRN #14 tablet 11/11/17 Unknown Rx medroxyPROGESTERone ACETATE 10 mg PO QDAY #10 tablet 12/02/17 Unknown Rx [Provera] traMADol [Ultram] 50 mg PO Q8HR PRN #15 tablet 12/02/17 Unknown Rx ED Physical Exam - General Limitations: No Limitations General appearance: alert, in no apparent distress - Head Head exam: Present: atraumatic, normocephalic - Eye Eye exam: Present: normal appearance - ENT ENT exam: Present: mucous membranes moist - Neck Neck exam: Present: normal inspection - Respiratory Respiratory exam: Present: normal lung sounds bilaterally. Absent: respiratory distress - Cardiovascular Cardiovascular Exam: Present: regular rate, normal rhythm. Absent: systolic murmur, diastolic murmur, rubs, gallop - GI/Abdominal GI/Abdominal exam: Present: soft, normal bowel sounds. Absent: distended, tenderness, guarding, rebound, rigid, mass, bruit, pulsatile mass, hernia - Rectal Rectal exam: Present: deferred - External exam: Present: other (deferred per patient ) - Extremities Exam Extremities exam: Present: normal inspection, full ROM - Back Exam Back exam: Present: normal inspection, full ROM. Absent: tenderness, CVA tenderness (R), CVA tenderness (L), muscle spasm, paraspinal tenderness, vertebral tenderness - Neurological Exam Neurological exam: Present: alert, oriented X3 - Psychiatric Psychiatric exam: Present: normal affect, normal mood - Skin Skin exam: Present: warm, dry, intact, normal color. Absent: rash ED Course Vital Signs 12/02/17 12/02/17 08:49 09:45 Temperature 98.9 F Pulse Rate 96 H Respiratory 18 20 Rate Blood Pressure 122/84 ED Medical Decision Making - Lab Data Result diagrams: 12/02/17 09:32 12/02/17 09:35 Laboratory Tests 12/02/17 12/02/17 12/02/17 09:32 09:35 09:35 WBC 4.4 L RBC 3.49 L Hgb 9.4 L Hct 29.0 L MCV 83 MCH 27 L MCHC 33 RDW 13.8 Plt Count 278 PT 13.7 INR 1.00 APTT 33.7 Sodium 134 L Potassium 3.8 Chloride 101.0 Carbon Dioxide 24 Anion Gap 13 BUN 11 Creatinine 0.8 Estimated GFR > 60 BUN/Creatinine Ratio 14 Glucose 180 H Calcium 8.5 Laboratory Tests 12/02/17 12/02/17 12/02/17 09:32 09:35 09:35 WBC 4.4 L RBC 3.49 L Hgb 9.4 L Hct 29.0 L MCV 83 MCH 27 L MCHC 33 RDW 13.8 Plt Count 278 Add Manual Diff Complete Total Counted 100 Seg Neuts % (Manual) 63.0 Band Neutrophils % 0 Lymphocytes % (Manual) 29.0 Reactive Lymphs % (Man) 0 Monocytes % (Manual) 6.0 Eosinophils % (Manual) 1.0 Basophils % (Manual) 1.0 Metamyelocytes % 0 Myelocytes % 0 Promyelocytes % 0 Blast Cells % 0 Nucleated RBC % Not Reportable Seg Neutrophils # Man 2.8 Band Neutrophils # 0.0 Lymphocytes # (Manual) 1.3 Abs React Lymphs (Man) 0.0 Monocytes # (Manual) 0.3 Eosinophils # (Manual) 0.0 Basophils # (Manual) 0.0 Metamyelocytes # 0.0 Myelocytes # 0.0 Promyelocytes # 0.0 Blast Cells # 0.0 WBC Morphology Not Reportable Hypersegmented Neuts Not Reportable Hyposegmented Neuts Not Reportable Hypogranular Neuts Not Reportable Smudge Cells Not Reportable Toxic Granulation Not Reportable Toxic Vacuolation Not Reportable Dohle Bodies Not Reportable Pelger-Huet Anomaly Not Reportable Rishabh Rods Not Reportable Platelet Estimate Cons Clumped Platelets Not Reportable Plt Clumps, EDTA Not Reportable Large Platelets Not Reportable Giant Platelets Not Reportable Platelet Satelliting Not Reportable Plt Morphology Comment Not Reportable RBC Morphology Not Reportable Dimorphic RBCs Not Reportable Polychromasia Not Reportable Hypochromasia Not Reportable Poikilocytosis Not Reportable Anisocytosis 1+ Microcytosis Not Reportable Macrocytosis Not Reportable Spherocytes Not Reportable Pappenheimer Bodies Not Reportable Sickle Cells Not Reportable Target Cells Not Reportable Tear Drop Cells Not Reportable Ovalocytes Not Reportable Helmet Cells Not Reportable [place] Bodies Not Reportable [place] Rings Not Reportable Platter Cells Not Reportable Bite Cells Not Reportable Crenated Cell Not Reportable Elliptocytes Not Reportable Acanthocytes (Spur) Not Reportable Rouleaux Not Reportable Hemoglobin C Crystals Not Reportable Schistocytes Not Reportable Malaria parasites Not Reportable Stephen Bodies Not Reportable Hem Pathologist Commnt No PT 13.7 INR 1.00 APTT 33.7 Sodium 134 L Potassium 3.8 Chloride 101.0 Carbon Dioxide 24 Anion Gap 13 BUN 11 Creatinine 0.8 Estimated GFR > 60 BUN/Creatinine Ratio 14 Glucose 180 H Calcium 8.5 Urine Color Urine Turbidity Urine pH Ur Specific [place] Urine Protein Urine Glucose (UA) Urine Ketones Urine Blood Urine Nitrite Urine Bilirubin Urine Urobilinogen Ur Leukocyte Esterase Urine WBC (Auto) Urine RBC (Auto) U Epithel Cells (Auto) Urine Bacteria (Auto) Hyaline Casts Urine Mucus Urine HCG, Qual 12/02/17 10:36 WBC RBC Hgb Hct MCV MCH MCHC RDW Plt Count Add Manual Diff Total Counted Seg Neuts % (Manual) Band Neutrophils % Lymphocytes % (Manual) Reactive Lymphs % (Man) Monocytes % (Manual) Eosinophils % (Manual) Basophils % (Manual) Metamyelocytes % Myelocytes % Promyelocytes % Blast Cells % Nucleated RBC % Seg Neutrophils # Man Band Neutrophils # Lymphocytes # (Manual) Abs React Lymphs (Man) Monocytes # (Manual) Eosinophils # (Manual) Basophils # (Manual) Metamyelocytes # Myelocytes # Promyelocytes # Blast Cells # WBC Morphology Hypersegmented Neuts Hyposegmented Neuts Hypogranular Neuts Smudge Cells Toxic Granulation Toxic Vacuolation Dohle Bodies Pelger-Huet Anomaly Rishabh Rods Platelet Estimate Clumped Platelets Plt Clumps, EDTA Large Platelets Giant Platelets Platelet Satelliting Plt Morphology Comment RBC Morphology Dimorphic RBCs Polychromasia Hypochromasia Poikilocytosis Anisocytosis Microcytosis Macrocytosis Spherocytes Pappenheimer Bodies Sickle Cells Target Cells Tear Drop Cells Ovalocytes Helmet Cells [place] Bodies [place] Rings Augusto Cells Bite Cells Crenated Cell Elliptocytes Acanthocytes (Spur) Rouleaux Hemoglobin C Crystals Schistocytes Malaria parasites Stephen Bodies Hem Pathologist Commnt PT INR APTT Sodium Potassium Chloride Carbon Dioxide Anion Gap BUN Creatinine Estimated GFR BUN/Creatinine Ratio Glucose Calcium Urine Color Yellow Urine Turbidity Hazy Urine pH 5.0 Ur Specific [place] 1.021 Urine Protein 30 mg/dl Urine Glucose (UA) 50 Urine Ketones Tr Urine Blood Lg Urine Nitrite Neg Urine Bilirubin Neg Urine Urobilinogen < 2.0 Ur Leukocyte Esterase Neg Urine WBC (Auto) 1.0 Urine RBC (Auto) 134.0 U Epithel Cells (Auto) 2.0 Urine Bacteria (Auto) 1+ Hyaline Casts 3 Urine Mucus Few Urine HCG, Qual Negative - Medical Decision Making This is AUB , h/h stable, hcg: neg plan Provera I rebroken when necessary pain follow with [facility] Dr. Neely in 2-3 days patient verbalized understanding and was signed discharged home in stable condition at this time Critical care attestation.: If time is entered above; I have spent that time in minutes in the direct care of this critically ill patient, excluding procedure time. ED Disposition Clinical Impression: Abnormal uterine bleeding (AUB) Disposition: - TO HOME OR SELFCARE Is pt being admited?: No Does the pt Need Aspirin: No Condition: Good Instructions: Dysfunctional Uterine Bleeding (ED) Prescriptions: medroxyPROGESTERone ACETATE [Provera] 10 mg PO QDAY #10 tablet traMADol [Ultram] 50 mg PO Q8HR PRN #15 tablet PRN Reason: Pain Referrals: SPRING NEELY MD [Referring] - 3-5 Days Time of Disposition: 12:02
[2017-12-02 11:38] LABS: Total Cells Counted 100
[2017-12-02 11:40] LABS: Anisocytosis 1+; Platelet Estimate Cons
[2017-12-02 11:50] LABS: Bacteria,Urine 1+ /HPF (Negative); Bilirubin,Urine NEG (Negative); Blood,Urine LG (Negative); Color,Urine Yellow (Yellow); Hyaline Casts,Urine 3 /LPF; Mucus,Urine FEW /HPF; Urobilinogen,Urine < 2.0 mg/dL (<2.0)
[2017-12-02 11:51] LABS: HCG Qualitative,Urine Negative (Negative)
[2017-12-02] MEDS ORDERED: TORADOL IV ONE (11:55)
[2017-12-02 12:57] VITALS: BP 128/78
== END 2017-12-02 12:58 | disposition home or self-care (01) ==
LOC: ED 07:35
DX: N93.8 Other specified abnormal uterine and vaginal bleeding (principal); Z88.0 Allergy status to penicillin
CPT/HCPCS: 36415; 80048; 81001; 81025; 85007; 85025; 85610; 85730; 96374; 99283; J1885

== ENCOUNTER 2018-01-07 04:17 | Emergency (ER) | payer MEDICAID ==
--- NOTE | 2018-01-07 05:01 | Emergency Department Report ---
Blank Doc - Documentation Documentation: The patient was medically screened by myself at 0445. The patient is a 32-year-old female with a history of heart failure, and whom presents reporting sudden onset of headache, right sided pain, left arm and leg tingling, and left-sided facial droop earlier tonight. She is unsure of the exact time that her symptoms began, but she believes that the time was around midnight, or 4 hours and 45 minutes prior to my evaluation. The on-call tele-neurologist Dr. Franco was contacted. She submitted that as the patient's last known normal time is unknown, and at best 5 hours ago now, the patient is not a candidate for TPA. The patient will be given asprin and a CTA of the head and neck will be ordered.
--- NOTE | 2018-01-07 05:05 | Cat Scan Report ---
FINAL REPORT EXAM: CT HEAD/BRAIN WO CON HISTORY: left sided numbness TECHNIQUE: Routine axial imaging was obtained of the brain without IV contrast. FINDINGS: The ventricular system is appropriate in size. There is no evidence of acute stroke or hemorrhage. There are no extra-axial fluid collections. The basal cisterns appear normal. The visualized sinuses are clear. The mastoid air cells are well pneumatized. IMPRESSION: No acute intracranial process.
[2018-01-07 05:06] LABS: Hematocrit 25.9 % (30.3-42.9); Hemoglobin 8.6 gm/dl (10.1-14.3); Mean Corpuscular HGB Conc 33 % (30-34); Mean Corpuscular Hemoglobin 27 pg (28-32); Mean Corpuscular Volume 83 fl (79-97); Platelet Count 269 K/mm3 (140-440); Red Blood Count 3.14 M/mm3 (3.65-5.03); Red Cell Distribution Width 13.3 % (13.2-15.2)
[2018-01-07 05:12] LABS: INR 1.02 (0.87-1.13)
[2018-01-07 05:13] LABS: Partial Thromboplastin Time 32.1 Sec. (24.2-36.6)
[2018-01-07 05:20] LABS: BUN/Creatinine Ratio 16; Blood Urea Nitrogen 11 mg/dL (7-17); Calcium 8.6 mg/dL (8.4-10.2); Hemolysis Index 0
[2018-01-07 06:21] LABS: Basophils % (Manual) 0 % (0.0-1.8); Hypochromasia 1+; Platelet Estimate Consistent w Auto; Target Cells Rare; Total Cells Counted 100
[2018-01-07 07:16] LABS: Alanine Aminotransferase 17 units/L (7-56); Albumin 3.1 g/dL (3.9-5)
[2018-01-07 07:17] LABS: Bilirubin,Direct < 0.2 mg/dL (0-0.2)
--- NOTE | 2018-01-07 08:03 | XRay Report ---
AP CHEST: HISTORY: Hypertension AP view of the chest demonstrates a normal mediastinal and cardiac contour with clear lungs and normal bony and soft tissue structures. IMPRESSION: Unremarkable AP chest.
[2018-01-07 08:14] VITALS: BP 120/82
--- NOTE | 2018-01-07 08:40 | Cat Scan Report ---
CTA HEAD: HISTORY: Left-sided numbness and facial droop. TECHNIQUE: Helical CT images after IV contrast with 0.625mm reformations. Sagittal and coronal reformats. Rotational MIP images. 3D volume rendering technique. FINDINGS: The arterial structures of the anterior and posterior circulations are patent throughout. No evidence for stenosis, occlusion or aneurysm. IMPRESSION: Unremarkable CTA head.
--- NOTE | 2018-01-07 08:41 | Cat Scan Report ---
CTA NECK: HISTORY: Left-sided numbness and facial droop. TECHNIQUE: Helical CT following IV contrast. Sagittal and coronal reformatted images. 3D volume rendering technique. Stenosis was calculated using NASCET criteria with the distal ICA the used to standard diameter. FINDINGS: The visualized aortic arch, innominate artery and proximal bilateral subclavian arteries are widely patent with less than 20% stenosis. Within the right carotid system: Less than 20% stenosis. Within the left carotid system: Less than 20% stenosis. The cervical vertebral arteries are patent with less than 20% stenosis. IMPRESSION: Unremarkable CTA of the neck.
[2018-01-07 08:52] LABS: Bilirubin,Urine NEG (Negative); Blood,Urine NEG (Negative); Color,Urine Yellow (Yellow); Hyaline Casts,Urine 1 /LPF; Mucus,Urine FEW /HPF; Protein,Urine <15 mg/dL mg/dL (Negative); Urobilinogen,Urine < 2.0 mg/dL (<2.0); WBC,Urine < 1.0 /HPF (0.0-6.0)
--- NOTE | 2018-01-07 09:19 | Emergency Department Report ---
ED Neuro Deficit HPI - General Chief Complaint: Neuro Symptoms/Deficit Stated Complaint: LT SIDE NUMBNESS/TINGLING Time Seen by Provider: 01/07/18 06:24 Source: patient Mode of arrival: Ambulatory Limitations: No Limitations - History of Present Illness Initial Comments: This is a 32 year old patient who states that she is compliant with antiretroviral therapy and has undetectable viral load. The patient is a variable history. She is preliminarily seen by Dr. Garcia who reported that the patient had a history of CHF as well. Patient did tell me that she had a history of CHF which occurred during a long hospitalization at this facility. She actually went into acute renal failure and a diagnosis of HIV was made. She had various CTs which showed some abdominal lymphadenopathy which I presume was consistent with her diagnosis of HIV. In any case patient has followed up with infectious disease on her condition. She stated that she had some left eye drooping, slight slurred speech and slight facial droop at triage. However the patient did not complain of any of these elements to me whatsoever. She had no difficulty with her face. She said her entire left side of her body was tingling to include her face arm chest abdomen and lower extremity. She also stated that it was painful and that both sides of her body were painful. She stated that she has frequent headaches and has been previously diagnosed with migraine. She states that she has had CTs of her head before. The patient complained of general body pain in the emergency department but not specifically of headache. -: hour(s) (patient is not suspected of stroke at this point. Her symptoms began at midnight. She was well out of the window for thrombolytics as when she was seen by me.) Location: other (altered sensation (paresthesias of the entire left side) Presenting Symptoms: Absent: Weak/Paralyzed One Side, Sudden, Severe Headache, Blurred/Loss of Vision, Facial Droop/Numbness, Unable to Speak Clearly, Altered Mental Status History of same: No Place: home Severity: mild, moderate Quality: tingling Improves With: none Worsens With: none On Anticoagulants: No Context: gradual onset Associated Symptoms: denies other symptoms (except for body pain and a frontal headache bilaterally which was not persistent) - Related Data Home Medications: Previous Rx's Medication Instructions Recorded Last Taken Type Ibuprofen [Motrin] 800 mg PO Q8HR PRN #20 tablet 11/07/17 Unknown Rx Ondansetron [Zofran Odt] 4 mg PO Q8HR PRN #14 tab.rapdis 11/11/17 Unknown Rx medroxyPROGESTERone ACETATE 10 mg PO QDAY #10 tablet 12/02/17 Unknown Rx [Provera] traMADol [Ultram] 50 mg PO Q8HR PRN #15 tablet 12/02/17 Unknown Rx traMADol [Ultram 50 MG tab] 50 mg PO Q4HR PRN #14 tablet 01/07/18 Unknown Rx Allergies/Adverse Reactions: Allergies Allergy/AdvReac Type Severity Reaction Status Date / Time Penicillins Allergy Swelling Verified 11/04/17 13:28 ED Review of Systems ROS: Stated complaint: LT SIDE NUMBNESS/TINGLING Other details as noted in HPI Constitutional: denies: chills, fever Eyes: denies: eye pain, eye discharge, vision change ENT: denies: ear pain, throat pain Respiratory: denies: cough, shortness of breath, wheezing Cardiovascular: denies: chest pain, palpitations Endocrine: no symptoms reported Gastrointestinal: denies: abdominal pain, nausea, diarrhea Genitourinary: denies: urgency, dysuria, discharge Musculoskeletal: denies: back pain, joint swelling, arthralgia Skin: denies: rash, lesions Neurological: as per HPI, headache. denies: weakness, paresthesias Psychiatric: denies: anxiety, depression Hematological/Lymphatic: denies: easy bleeding, easy bruising ED Past Medical Hx - Past Medical History Previous Medical History?: Yes Hx Hypertension: No Hx Congestive Heart Failure: Yes Hx Asthma: No Hx HIV: Yes Additional medical history: HIV positive - Surgical History Past Surgical History?: Yes Hx Breast Surgery: Yes (reduction) Additional Surgical History: Mirena, HYSTEROSCOPY. c-sectin x3 - Social History Smoking Status: Never Smoker Substance Use Type: None - Medications Home Medications: Home Medications Medication Instructions Recorded Confirmed Last Taken Type Ibuprofen [Motrin] 800 mg PO Q8HR PRN #20 tablet 11/07/17 Unknown Rx Ondansetron [Zofran Odt] 4 mg PO Q8HR PRN #14 tab.rapdis 11/11/17 Unknown Rx medroxyPROGESTERone ACETATE 10 mg PO QDAY #10 tablet 12/02/17 Unknown Rx [Provera] traMADol [Ultram] 50 mg PO Q8HR PRN #15 tablet 12/02/17 Unknown Rx traMADol [Ultram 50 MG tab] 50 mg PO Q4HR PRN #14 tablet 01/07/18 Unknown Rx ED Neuro Physical Exam - General Limitations: No Limitations General appearance: alert, in no apparent distress Suspected Stroke: No (NIH stroke is 0) - Head Head exam: Present: atraumatic, normocephalic - Eye Eye exam: Present: normal appearance, PERRL, EOMI. Absent: scleral icterus - ENT ENT exam: Present: normal exam, mucous membranes moist - Neck Neck exam: Present: normal inspection. Absent: tenderness, meningismus - Respiratory Respiratory exam: Present: normal lung sounds bilaterally. Absent: respiratory distress - Cardiovascular Cardiovascular Exam: Present: regular rate, normal rhythm. Absent: systolic murmur, diastolic murmur, rubs, gallop - GI/Abdominal GI/Abdominal exam: Present: soft, normal bowel sounds. Absent: distended, tenderness, guarding, rebound, rigid - Extremities Exam Extremities exam: Present: normal inspection - Back Exam Back exam: Present: normal inspection - Neurological Exam Neurological exam: Present: alert, oriented X3, CN II-XII intact. Absent: motor sensory deficit - NIHSS Assessment Interval: Baseline 1a. Level of Consciousness: alert 1b. LOC Questions: answers correctly 1c. LOC Commands: performs tasks correctly 2. Best Gaze: normal 3. Visual: no visual loss 4. Facial Palsy: normal symmetrical movement 5b. Motor Arm Right: no drift 5a. Motor Arm Left: no drift 6a. Motor Leg Left: no drift 6b. Motor Leg Right: no drift 7. Limb Ataxia: absent 8. Sensory: normal (complaints of paresthesias only) 9. Best Language: no aphasia 10. Dysarthria: normal 11. Extinction/Inattention: no abnormality Total Score: 0 Stroke Severity: No Stroke Symptoms - Psychiatric Psychiatric exam: Present: normal affect, normal mood - Skin Skin exam: Present: warm, dry, intact, normal color. Absent: rash ED Course Vital Signs 01/07/18 01/07/18 01/07/18 04:29 05:27 05:46 Temperature 98.5 F Pulse Rate 80 Respiratory 16 18 Rate Blood Pressure 135/80 O2 Sat by Pulse 100 99 99 Oximetry 01/07/18 01/07/18 06:00 07:00 Temperature Pulse Rate Respiratory Rate Blood Pressure 108/62 120/82 O2 Sat by Pulse 100 99 Oximetry - Reevaluation(s) Reevaluation #1: I found the patient resting comfortably/of sleep. She is easily arousable. She had asked the nurse for medicine for body pain but not specifically headache. I did not find her to have any facial paresis nor any ptosis. I did not find her to have any actual sensory deficit just paresthesias. I spoke with the neurologist Dr. Franco. She did not express a need to admit the patient. The patient was found to have a negative CT of her head negative CT angiogram of her neck and head. Therefore I think it would be reasonable to have the patient follow-up with her HIV provider as well as a neurologist. She is discharged in stable condition. It is recommended that she takes baby aspirin a day. 01/07/18 09:21 - Lab Data Result diagrams: 01/07/18 04:48 01/07/18 04:48 Lab Results 01/07/18 01/07/18 01/07/18 Range/Units 04:48 04:48 04:48 WBC 3.8 L (4.5-11.0) K/mm3 RBC 3.14 L (3.65-5.03) M/mm3 Hgb 8.6 L (10.1-14.3) gm/dl Hct 25.9 L (30.3-42.9) % MCV 83 (79-97) fl MCH 27 L (28-32) pg MCHC 33 (30-34) % RDW 13.3 (13.2-15.2) % Plt Count 269 (140-440) K/mm3 Add Manual Diff Complete Total Counted 100 Seg Neuts % (Manual) 66.0 (40.0-70.0) % Band Neutrophils % 0 % Lymphocytes % (Manual) 30.0 (13.4-35.0) % Reactive Lymphs % (Man) 0 % Monocytes % (Manual) 3.0 (0.0-7.3) % Eosinophils % (Manual) 1.0 (0.0-4.3) % Basophils % (Manual) 0 (0.0-1.8) % Metamyelocytes % 0 % Myelocytes % 0 % Promyelocytes % 0 % Blast Cells % 0 % Nucleated RBC % Not Reportable Seg Neutrophils # Man 2.5 (1.8-7.7) K/mm3 Band Neutrophils # 0.0 K/mm3 Lymphocytes # (Manual) 1.1 L (1.2-5.4) K/mm3 Abs React Lymphs (Man) 0.0 K/mm3 Monocytes # (Manual) 0.1 (0.0-0.8) K/mm3 Eosinophils # (Manual) 0.0 (0.0-0.4) K/mm3 Basophils # (Manual) 0.0 (0.0-0.1) K/mm3 Metamyelocytes # 0.0 K/mm3 Myelocytes # 0.0 K/mm3 Promyelocytes # 0.0 K/mm3 Blast Cells # 0.0 K/mm3 WBC Morphology Not Reportable Hypersegmented Neuts Not Reportable Hyposegmented Neuts Not Reportable Hypogranular Neuts Not Reportable Smudge Cells Not Reportable Toxic Granulation Not Reportable Toxic Vacuolation Not Reportable Dohle Bodies Not Reportable Pelger-Huet Anomaly Not Reportable Rishabh Rods Not Reportable Platelet Estimate Consistent w auto Clumped Platelets Not Reportable Plt Clumps, EDTA Not Reportable Large Platelets Not Reportable Giant Platelets Not Reportable Platelet Satelliting Not Reportable Plt Morphology Comment Not Reportable RBC Morphology Not Reportable Dimorphic RBCs Not Reportable Polychromasia Not Reportable Hypochromasia 1+ Poikilocytosis Not Reportable Anisocytosis Not Reportable Microcytosis Not Reportable Macrocytosis Not Reportable Spherocytes Not Reportable Pappenheimer Bodies Not Reportable Sickle Cells Not Reportable Target Cells Rare Tear Drop Cells Not Reportable Ovalocytes Not Reportable Helmet Cells Not Reportable Hanna-Stilwell Bodies Not Reportable [place] Rings Not Reportable Augusto Cells Not Reportable Bite Cells Not Reportable Crenated Cell Not Reportable Elliptocytes Not Reportable Acanthocytes (Spur) Not Reportable Rouleaux Not Reportable Hemoglobin C Crystals Not Reportable Schistocytes Not Reportable Malaria parasites Not Reportable Stephen Bodies Not Reportable Hem Pathologist Commnt No PT 13.9 (12.2-14.9) Sec. INR 1.02 (0.87-1.13) APTT 32.1 (24.2-36.6) Sec. Thrombin Time (15.1-19.6) Sec. D-Dimer (0-234) ng/mlDDU Sodium 135 L (137-145) mmol/L Potassium 3.6 (3.6-5.0) mmol/L Chloride 101.7 (98-107) mmol/L Carbon Dioxide 24 (22-30) mmol/L Anion Gap 13 mmol/L BUN 11 (7-17) mg/dL Creatinine 0.7 (0.7-1.2) mg/dL Estimated GFR > 60 ml/min BUN/Creatinine Ratio 16 % Glucose 109 H (65-100) mg/dL POC Glucose (70-105) Calcium 8.6 (8.4-10.2) mg/dL Magnesium (1.7-2.3) mg/dL Total Bilirubin (0.1-1.2) mg/dL Direct Bilirubin (0-0.2) mg/dL Indirect Bilirubin mg/dL AST (5-40) units/L ALT (7-56) units/L Alkaline Phosphatase (35-129) units/L Troponin T < 0.010 (0.00-0.029) ng/mL NT-Pro-B Natriuret Pep (0-450) pg/mL Total Protein (6.3-8.2) g/dL Albumin (3.9-5) g/dL Albumin/Globulin Ratio % Urine Color (Yellow) Urine Turbidity (Clear) Urine pH (5.0-7.0) Ur Specific [place] (1.003-1.030) Urine Protein (Negative) mg/dL Urine Glucose (UA) (Negative) mg/dL Urine Ketones (Negative) mg/dL Urine Blood (Negative) Urine Nitrite (Negative) Urine Bilirubin (Negative) Urine Urobilinogen (<2.0) mg/dL Ur Leukocyte Esterase (Negative) Urine WBC (Auto) (0.0-6.0) /HPF Urine RBC (Auto) (0.0-6.0) /HPF U Epithel Cells (Auto) (0-13.0) /HPF Hyaline Casts /LPF Urine Mucus /HPF 01/07/18 01/07/18 01/07/18 Range/Units 04:48 04:48 04:48 WBC (4.5-11.0) K/mm3 RBC (3.65-5.03) M/mm3 Hgb (10.1-14.3) gm/dl Hct (30.3-42.9) % MCV (79-97) fl MCH (28-32) pg MCHC (30-34) % RDW (13.2-15.2) % Plt Count (140-440) K/mm3 Add Manual Diff Total Counted Seg Neuts % (Manual) (40.0-70.0) % Band Neutrophils % % Lymphocytes % (Manual) (13.4-35.0) % Reactive Lymphs % (Man) % Monocytes % (Manual) (0.0-7.3) % Eosinophils % (Manual) (0.0-4.3) % Basophils % (Manual) (0.0-1.8) % Metamyelocytes % % Myelocytes % % Promyelocytes % % Blast Cells % % Nucleated RBC % Seg Neutrophils # Man (1.8-7.7) K/mm3 Band Neutrophils # K/mm3 Lymphocytes # (Manual) (1.2-5.4) K/mm3 Abs React Lymphs (Man) K/mm3 Monocytes # (Manual) (0.0-0.8) K/mm3 Eosinophils # (Manual) (0.0-0.4) K/mm3 Basophils # (Manual) (0.0-0.1) K/mm3 Metamyelocytes # K/mm3 Myelocytes # K/mm3 Promyelocytes # K/mm3 Blast Cells # K/mm3 WBC Morphology Hypersegmented Neuts Hyposegmented Neuts Hypogranular Neuts Smudge Cells Toxic Granulation Toxic Vacuolation Dohle Bodies Pelger-Huet Anomaly Rishabh Rods Platelet Estimate Clumped Platelets Plt Clumps, EDTA Large Platelets Giant Platelets Platelet Satelliting Plt Morphology Comment RBC Morphology Dimorphic RBCs Polychromasia Hypochromasia Poikilocytosis Anisocytosis Microcytosis Macrocytosis Spherocytes Pappenheimer Bodies Sickle Cells Target Cells Tear Drop Cells Ovalocytes Helmet Cells Hanna-Stilwell Bodies [place] Rings Augusto Cells Bite Cells Crenated Cell Elliptocytes Acanthocytes (Spur) Rouleaux Hemoglobin C Crystals Schistocytes Malaria parasites Stephen Bodies Hem Pathologist Commnt PT (12.2-14.9) Sec. INR (0.87-1.13) APTT (24.2-36.6) Sec. Thrombin Time 19.3 (15.1-19.6) Sec. D-Dimer 424.07 H (0-234) ng/mlDDU Sodium (137-145) mmol/L Potassium (3.6-5.0) mmol/L Chloride (98-107) mmol/L Carbon Dioxide (22-30) mmol/L Anion Gap mmol/L BUN (7-17) mg/dL Creatinine (0.7-1.2) mg/dL Estimated GFR ml/min BUN/Creatinine Ratio % Glucose (65-100) mg/dL POC Glucose (70-105) Calcium (8.4-10.2) mg/dL Magnesium 1.70 (1.7-2.3) mg/dL Total Bilirubin 0.30 (0.1-1.2) mg/dL Direct Bilirubin < 0.2 (0-0.2) mg/dL Indirect Bilirubin 0.1 mg/dL AST 34 (5-40) units/L ALT 17 (7-56) units/L Alkaline Phosphatase 81 (35-129) units/L Troponin T (0.00-0.029) ng/mL NT-Pro-B Natriuret Pep 38.05 (0-450) pg/mL Total Protein 9.6 H (6.3-8.2) g/dL Albumin 3.1 L (3.9-5) g/dL Albumin/Globulin Ratio 0.5 % Urine Color (Yellow) Urine Turbidity (Clear) Urine pH (5.0-7.0) Ur Specific [place] (1.003-1.030) Urine Protein (Negative) mg/dL Urine Glucose (UA) (Negative) mg/dL Urine Ketones (Negative) mg/dL Urine Blood (Negative) Urine Nitrite (Negative) Urine Bilirubin (Negative) Urine Urobilinogen (<2.0) mg/dL Ur Leukocyte Esterase (Negative) Urine WBC (Auto) (0.0-6.0) /HPF Urine RBC (Auto) (0.0-6.0) /HPF U Epithel Cells (Auto) (0-13.0) /HPF Hyaline Casts /LPF Urine Mucus /HPF 01/07/18 01/07/18 Range/Units 04:50 Unknown WBC (4.5-11.0) K/mm3 RBC (3.65-5.03) M/mm3 Hgb (10.1-14.3) gm/dl Hct (30.3-42.9) % MCV (79-97) fl MCH (28-32) pg MCHC (30-34) % RDW (13.2-15.2) % Plt Count (140-440) K/mm3 Add Manual Diff Total Counted Seg Neuts % (Manual) (40.0-70.0) % Band Neutrophils % % Lymphocytes % (Manual) (13.4-35.0) % Reactive Lymphs % (Man) % Monocytes % (Manual) (0.0-7.3) % Eosinophils % (Manual) (0.0-4.3) % Basophils % (Manual) (0.0-1.8) % Metamyelocytes % % Myelocytes % % Promyelocytes % % Blast Cells % % Nucleated RBC % Seg Neutrophils # Man (1.8-7.7) K/mm3 Band Neutrophils # K/mm3 Lymphocytes # (Manual) (1.2-5.4) K/mm3 Abs React Lymphs (Man) K/mm3 Monocytes # (Manual) (0.0-0.8) K/mm3 Eosinophils # (Manual) (0.0-0.4) K/mm3 Basophils # (Manual) (0.0-0.1) K/mm3 Metamyelocytes # K/mm3 Myelocytes # K/mm3 Promyelocytes # K/mm3 Blast Cells # K/mm3 WBC Morphology Hypersegmented Neuts Hyposegmented Neuts Hypogranular Neuts Smudge Cells Toxic Granulation Toxic Vacuolation Dohle Bodies Pelger-Huet Anomaly Rishabh Rods Platelet Estimate Clumped Platelets Plt Clumps, EDTA Large Platelets Giant Platelets Platelet Satelliting Plt Morphology Comment RBC Morphology Dimorphic RBCs Polychromasia Hypochromasia Poikilocytosis Anisocytosis Microcytosis Macrocytosis Spherocytes Pappenheimer Bodies Sickle Cells Target Cells Tear Drop Cells Ovalocytes Helmet Cells Hanna-Stilwell Bodies [place] Rings Augusto Cells Bite Cells Crenated Cell Elliptocytes Acanthocytes (Spur) Rouleaux Hemoglobin C Crystals Schistocytes Malaria parasites Stephen Bodies Hem Pathologist Commnt PT (12.2-14.9) Sec. INR (0.87-1.13) APTT (24.2-36.6) Sec. Thrombin Time (15.1-19.6) Sec. D-Dimer (0-234) ng/mlDDU Sodium (137-145) mmol/L Potassium (3.6-5.0) mmol/L Chloride (98-107) mmol/L Carbon Dioxide (22-30) mmol/L Anion Gap mmol/L BUN (7-17) mg/dL Creatinine (0.7-1.2) mg/dL Estimated GFR ml/min BUN/Creatinine Ratio % Glucose (65-100) mg/dL POC Glucose 95 (70-105) Calcium (8.4-10.2) mg/dL Magnesium (1.7-2.3) mg/dL Total Bilirubin (0.1-1.2) mg/dL Direct Bilirubin (0-0.2) mg/dL Indirect Bilirubin mg/dL AST (5-40) units/L ALT (7-56) units/L Alkaline Phosphatase (35-129) units/L Troponin T (0.00-0.029) ng/mL NT-Pro-B Natriuret Pep (0-450) pg/mL Total Protein (6.3-8.2) g/dL Albumin (3.9-5) g/dL Albumin/Globulin Ratio % Urine Color Yellow (Yellow) Urine Turbidity Clear (Clear) Urine pH 7.0 (5.0-7.0) Ur Specific [place] 1.003 (1.003-1.030) Urine Protein <15 mg/dl (Negative) mg/dL Urine Glucose (UA) Neg (Negative) mg/dL Urine Ketones Neg (Negative) mg/dL Urine Blood Neg (Negative) Urine Nitrite Neg (Negative) Urine Bilirubin Neg (Negative) Urine Urobilinogen < 2.0 (<2.0) mg/dL Ur Leukocyte Esterase Neg (Negative) Urine WBC (Auto) < 1.0 (0.0-6.0) /HPF Urine RBC (Auto) 2.0 (0.0-6.0) /HPF U Epithel Cells (Auto) 2.0 (0-13.0) /HPF Hyaline Casts 1 /LPF Urine Mucus Few /HPF Laboratory Results - last 24 hr 01/07/18 01/07/18 01/07/18 04:48 04:48 04:48 WBC 3.8 L RBC 3.14 L Hgb 8.6 L Hct 25.9 L MCV 83 MCH 27 L MCHC 33 RDW 13.3 Plt Count 269 Add Manual Diff Complete Total Counted 100 Seg Neuts % (Manual) 66.0 Band Neutrophils % 0 Lymphocytes % (Manual) 30.0 Reactive Lymphs % (Man) 0 Monocytes % (Manual) 3.0 Eosinophils % (Manual) 1.0 Basophils % (Manual) 0 Metamyelocytes % 0 Myelocytes % 0 Promyelocytes % 0 Blast Cells % 0 Nucleated RBC % Not Reportable Seg Neutrophils # Man 2.5 Band Neutrophils # 0.0 Lymphocytes # (Manual) 1.1 L Abs React Lymphs (Man) 0.0 Monocytes # (Manual) 0.1 Eosinophils # (Manual) 0.0 Basophils # (Manual) 0.0 Metamyelocytes # 0.0 Myelocytes # 0.0 Promyelocytes # 0.0 Blast Cells # 0.0 WBC Morphology Not Reportable Hypersegmented Neuts Not Reportable Hyposegmented Neuts Not Reportable Hypogranular Neuts Not Reportable Smudge Cells Not Reportable Toxic Granulation Not Reportable Toxic Vacuolation Not Reportable Dohle Bodies Not Reportable Pelger-Huet Anomaly Not Reportable Rishabh Rods Not Reportable Platelet Estimate Consistent w auto Clumped Platelets Not Reportable Plt Clumps, EDTA Not Reportable Large Platelets Not Reportable Giant Platelets Not Reportable Platelet Satelliting Not Reportable Plt Morphology Comment Not Reportable RBC Morphology Not Reportable Dimorphic RBCs Not Reportable Polychromasia Not Reportable Hypochromasia 1+ Poikilocytosis Not Reportable Anisocytosis Not Reportable Microcytosis Not Reportable Macrocytosis Not Reportable Spherocytes Not Reportable Pappenheimer Bodies Not Reportable Sickle Cells Not Reportable Target Cells Rare Tear Drop Cells Not Reportable Ovalocytes Not Reportable Helmet Cells Not Reportable Hanna-Stilwell Bodies Not Reportable [place] Rings Not Reportable [place] Cells Not Reportable Bite Cells Not Reportable Crenated Cell Not Reportable Elliptocytes Not Reportable Acanthocytes (Spur) Not Reportable Rouleaux Not Reportable Hemoglobin C Crystals Not Reportable Schistocytes Not Reportable Malaria parasites Not Reportable Stephen Bodies Not Reportable Hem Pathologist Commnt No PT 13.9 INR 1.02 APTT 32.1 Thrombin Time D-Dimer Sodium 135 L Potassium 3.6 Chloride 101.7 Carbon Dioxide 24 Anion Gap 13 BUN 11 Creatinine 0.7 Estimated GFR > 60 BUN/Creatinine Ratio 16 Glucose 109 H POC Glucose Calcium 8.6 Magnesium Total Bilirubin Direct Bilirubin Indirect Bilirubin AST ALT Alkaline Phosphatase Troponin T < 0.010 NT-Pro-B Natriuret Pep Total Protein Albumin Albumin/Globulin Ratio Urine Color Urine Turbidity Urine pH Ur Specific [place] Urine Protein Urine Glucose (UA) Urine Ketones Urine Blood Urine Nitrite Urine Bilirubin Urine Urobilinogen Ur Leukocyte Esterase Urine WBC (Auto) Urine RBC (Auto) U Epithel Cells (Auto) Hyaline Casts Urine Mucus 01/07/18 01/07/18 01/07/18 04:48 04:48 04:48 WBC RBC Hgb Hct MCV MCH MCHC RDW Plt Count Add Manual Diff Total Counted Seg Neuts % (Manual) Band Neutrophils % Lymphocytes % (Manual) Reactive Lymphs % (Man) Monocytes % (Manual) Eosinophils % (Manual) Basophils % (Manual) Metamyelocytes % Myelocytes % Promyelocytes % Blast Cells % Nucleated RBC % Seg Neutrophils # Man Band Neutrophils # Lymphocytes # (Manual) Abs React Lymphs (Man) Monocytes # (Manual) Eosinophils # (Manual) Basophils # (Manual) Metamyelocytes # Myelocytes # Promyelocytes # Blast Cells # WBC Morphology Hypersegmented Neuts Hyposegmented Neuts Hypogranular Neuts Smudge Cells Toxic Granulation Toxic Vacuolation Dohle Bodies Pelger-Huet Anomaly Rishabh Rods Platelet Estimate Clumped Platelets Plt Clumps, EDTA Large Platelets Giant Platelets Platelet Satelliting Plt Morphology Comment RBC Morphology Dimorphic RBCs Polychromasia Hypochromasia Poikilocytosis Anisocytosis Microcytosis Macrocytosis Spherocytes Pappenheimer Bodies Sickle Cells Target Cells Tear Drop Cells Ovalocytes Helmet Cells Hanna-Stilwell Bodies [place] Rings Augusto Cells Bite Cells Crenated Cell Elliptocytes Acanthocytes (Spur) Rouleaux Hemoglobin C Crystals Schistocytes Malaria parasites Stephen Bodies Hem Pathologist Commnt PT INR APTT Thrombin Time 19.3 D-Dimer 424.07 H Sodium Potassium Chloride Carbon Dioxide Anion Gap BUN Creatinine Estimated GFR BUN/Creatinine Ratio Glucose POC Glucose Calcium Magnesium 1.70 Total Bilirubin 0.30 Direct Bilirubin < 0.2 Indirect Bilirubin 0.1 AST 34 ALT 17 Alkaline Phosphatase 81 Troponin T NT-Pro-B Natriuret Pep 38.05 Total Protein 9.6 H Albumin 3.1 L Albumin/Globulin Ratio 0.5 Urine Color Urine Turbidity Urine pH Ur Specific [place] Urine Protein Urine Glucose (UA) Urine Ketones Urine Blood Urine Nitrite Urine Bilirubin Urine Urobilinogen Ur Leukocyte Esterase Urine WBC (Auto) Urine RBC (Auto) U Epithel Cells (Auto) Hyaline Casts Urine Mucus 01/07/18 01/07/18 04:50 Unknown WBC RBC Hgb Hct MCV MCH MCHC RDW Plt Count Add Manual Diff Total Counted Seg Neuts % (Manual) Band Neutrophils % Lymphocytes % (Manual) Reactive Lymphs % (Man) Monocytes % (Manual) Eosinophils % (Manual) Basophils % (Manual) Metamyelocytes % Myelocytes % Promyelocytes % Blast Cells % Nucleated RBC % Seg Neutrophils # Man Band Neutrophils # Lymphocytes # (Manual) Abs React Lymphs (Man) Monocytes # (Manual) Eosinophils # (Manual) Basophils # (Manual) Metamyelocytes # Myelocytes # Promyelocytes # Blast Cells # WBC Morphology Hypersegmented Neuts Hyposegmented Neuts Hypogranular Neuts Smudge Cells Toxic Granulation Toxic Vacuolation Dohle Bodies Pelger-Huet Anomaly Rishabh Rods Platelet Estimate Clumped Platelets Plt Clumps, EDTA Large Platelets Giant Platelets Platelet Satelliting Plt Morphology Comment RBC Morphology Dimorphic RBCs Polychromasia Hypochromasia Poikilocytosis Anisocytosis Microcytosis Macrocytosis Spherocytes Pappenheimer Bodies Sickle Cells Target Cells Tear Drop Cells Ovalocytes Helmet Cells Hanna-Stilwell Bodies [place] Rings [place] Cells Bite Cells Crenated Cell Elliptocytes Acanthocytes (Spur) Rouleaux Hemoglobin C Crystals Schistocytes Malaria parasites Stephen Bodies Hem Pathologist Commnt PT INR APTT Thrombin Time D-Dimer Sodium Potassium Chloride Carbon Dioxide Anion Gap BUN Creatinine Estimated GFR BUN/Creatinine Ratio Glucose POC Glucose 95 Calcium Magnesium Total Bilirubin Direct Bilirubin Indirect Bilirubin AST ALT Alkaline Phosphatase Troponin T NT-Pro-B Natriuret Pep Total Protein Albumin Albumin/Globulin Ratio Urine Color Yellow Urine Turbidity Clear Urine pH 7.0 Ur Specific [place] 1.003 Urine Protein <15 mg/dl Urine Glucose (UA) Neg Urine Ketones Neg Urine Blood Neg Urine Nitrite Neg Urine Bilirubin Neg Urine Urobilinogen < 2.0 Ur Leukocyte Esterase Neg Urine WBC (Auto) < 1.0 Urine RBC (Auto) 2.0 U Epithel Cells (Auto) 2.0 Hyaline Casts 1 Urine Mucus Few - EKG Data -: EKG Interpreted by Sd EKG shows normal: sinus rhythm, axis, intervals, QRS complexes, ST-T waves Rate: normal Interpretation: no acute changes - Radiology Data Radiology results: report reviewed Critical care attestation.: If time is entered above; I have spent that time in minutes in the direct care of this critically ill patient, excluding procedure time. ED Disposition Clinical Impression: Paresthesias, Allodynia, History of HIV or AIDS Anemia Qualifiers: Anemia type: unspecified type Qualified Code(s): D64.9 - Anemia, unspecified Cephalalgia Qualifiers: Headache type: unspecified Headache chronicity pattern: episodic headache Intractability: not intractable Qualified Code(s): R51 - Headache Disposition: DC-01 TO HOME OR SELFCARE Is pt being admited?: No Does the pt Need Aspirin: No Condition: Stable Instructions: Human Immunodeficiency Virus Infection (ED), Anemia (ED), Acute Headache (ED), Paresthesia (ED) Additional Instructions: I would recommend further evaluation with the neurologist, a primary care physician and your HIV specialist. Sincerely referrals. Return to the emergency department any acute change in her symptoms or worsening. Rx for generalized pain as needed. I would recommend one baby aspirin a day. Prescriptions: traMADol [Ultram 50 MG tab] 50 mg PO Q4HR PRN #14 tablet PRN Reason: Pain Referrals: REGINA HU MD [Staff Physician] - 3-5 Days PRIMARY CARE, [Primary Care Provider] - 24 Hours [facility] [Provider Group] - 3-5 Days Time of Disposition: 09:29
[2018-01-07 09:28] LABS: Basophils % (Auto) 1.2 % (0.0-1.8); Eosinophils # (Auto) 0.1 K/mm3 (0.0-0.4); Eosinophils % (Auto) 1.5 % (0.0-4.3); Lymphocytes # (Auto) 1.5 K/mm3 (1.2-5.4); Lymphocytes % (Auto) 40.2 % (13.4-35.0); Monocytes # (Auto) 0.4 K/mm3 (0.0-0.8); Monocytes % (Auto) 10.5 % (0.0-7.3)
[2018-01-07] MEDS ORDERED: ASPIRIN PO ONE (09:35)
[2018-01-07] MEDS ORDERED: ULTRAM PO ONE (09:35)
== END 2018-01-07 09:40 | disposition home or self-care (01) ==
LOC: ED 04:17
DX: D64.9 Anemia, unspecified (principal); R51 Headache; R20.0 Anesthesia of skin; I50.9 Heart failure, unspecified; Z88.0 Allergy status to penicillin
CPT/HCPCS: 36415; 70450; 70496; 70498; 71045; 80048; 80074; 81001; 82962; 83735; 83880; 84484; 85007; 85025; 85379; 85610; 85670; 85730; 93005; 93010; 99285; Q9967

== ENCOUNTER 2019-02-14 22:32 | Emergency (ER) | payer MEDICAID ==
--- NOTE | 2019-02-14 23:16 | Emergency Department Report ---
HPI - General Chief Complaint: Syncope Time Seen by Provider: 02/14/19 23:03 - HPI HPI: 33-year-old -[place] female presents to the emergency department by EMS from home after she had a syncopal episode. The patient says that she was talking on the phone and then woke up in the ambulance. It is unknown who called EMS but she thinks it may have been one of her children. The patient says that she was having some chest pain leading up to the syncopal episode. The chest pain is midsternal to left-sided and radiates to the left arm and neck. She has a past medical history of HIV but says she is at an undetectable level, is compliant with her medications, and follows up with [facility]. She also has a past medical history of [id number] diabetes and CHF. She says that she was supposed to have a pacemaker placed one year ago but she decided not to get this done and says "I have just been ignoring it." She also appears to have had an episode of atrial fibrillation in the past and says that she is supposed to be on blood thinners but is not. No recent travel or sick contacts at home. ED Past Medical Hx - Past Medical History Previous Medical History?: Yes Hx Hypertension: No Hx Congestive Heart Failure: Yes Hx Asthma: No Hx HIV: Yes Additional medical history: HIV positive - Surgical History Past Surgical History?: Yes Hx Breast Surgery: Yes (reduction) Additional Surgical History: Mirena, HYSTEROSCOPY. c-sectin x3 - Social History Smoking Status: Never Smoker Substance Use Type: None - Medications Home Medications: Home Medications Medication Instructions Recorded Confirmed Last Taken Type Ibuprofen [Motrin] 800 mg PO Q8HR PRN #20 tablet 11/07/17 06/01/18 Unknown Rx Ondansetron [Zofran Odt] 4 mg PO Q8HR PRN #14 tab.rapdis 11/11/17 06/01/18 Unknown Rx medroxyPROGESTERone ACETATE 10 mg PO QDAY #10 tablet 12/02/17 06/01/18 Unknown Rx [Provera] traMADol [Ultram] 50 mg PO Q8HR PRN #15 tablet 12/02/17 06/01/18 Unknown Rx traMADol [Ultram 50 MG tab] 50 mg PO Q4HR PRN #14 tablet 01/07/18 06/01/18 Unknown Rx ED Review of Systems ROS: Stated complaint: AMS Other details as noted in HPI Comment: All other systems reviewed and negative Constitutional: denies: chills, weakness Eyes: denies: eye pain, vision change ENT: denies: ear pain, throat pain Respiratory: denies: cough, wheezing Cardiovascular: chest pain, syncope Gastrointestinal: denies: abdominal pain, vomiting Genitourinary: denies: dysuria, discharge Musculoskeletal: denies: back pain, arthralgia Skin: denies: rash, lesions Neurological: denies: weakness, numbness Physical Exam - Physical Exam Vital Signs: Vital Signs 02/14/19 02/14/19 22:44 23:05 Temperature 100.4 F H Pulse Rate 96 H 97 H Respiratory 16 Rate Blood Pressure 117/74 O2 Sat by Pulse 99 Oximetry Physical Exam: GENERAL: The patient is well-developed well-nourished. HENT: Normocephalic. Atraumatic. Patient has moist mucous membranes. EYES: Extraocular motions are intact. Pupils equal reactive to light b ilaterally. NECK: Supple. Trachea is midline. CHEST/LUNGS: Clear to auscultation. There is no respiratory distress noted. HEART/CARDIOVASCULAR: Regular. There is no tachycardia. There is no murmur. ABDOMEN: Abdomen is soft, nontender. Patient has normal bowel sounds. There is no abdominal distention. SKIN: Skin is warm and dry. NEURO: The patient is awake, alert, and oriented. The patient is cooperative. The patient has no focal neurologic deficits. Normal speech. CN II - XII grossly intact. MUSCULOSKELETAL: There is no tenderness or deformity. There is no limitation range of motion. There is no evidence of acute injury. ED Course Vital Signs 02/14/19 02/14/19 22:44 23:05 Temperature 100.4 F H Pulse Rate 96 H 97 H Respiratory 16 Rate Blood Pressure 117/74 O2 Sat by Pulse 99 Oximetry ED Medical Decision Making - Lab Data Result diagrams: 02/14/19 23:00 02/14/19 23:00 - EKG Data -: EKG Interpreted by Me EKG shows normal: sinus rhythm, axis, intervals, QRS complexes, ST-T waves Rate: normal - EKG Data When compared to previous EKG there are: no significant change Interpretation: unchanged when compared t (06/01/18) - Radiology Data Radiology results: report reviewed, image reviewed interpreted by me: Chest x-ray does not show any acute process. There are no pleural effusions, o bvious pneumonia and there is no pneumothorax. CT head/brain wo con INDICATION: headache, Syncope. TECHNIQUE: All CT scans at this location are performed using the following dose modulation technique: Automated exposure control. CONTRAST: None. COMPARISON: CT brain 01/07/2018. FINDINGS: The ventricular system is appropriate in size and configuration withou t midline shift. Negative for mass, stroke or hemorrhage. Imaged portions of the paranasal sinuses are clear. IMPRESSION: Negative CT brain without contrast. CT angio chest INDICATION / CLINICAL INFORMATION: Syncope. Chest pain. TECHNIQUE: Axial CT images were obtained after injection of Omnipaque 350, 100 cc IV injection. IV contrast using CTA protocol. 3 plane MIP / 3D reconstructions were produced. All CT scans at this location are performed using CT dose reduction for ALARA by means of automated exposure control. COMPARISON: None available. FINDINGS: Negative for lung mass, infiltrate or pleural fluid. No mediastinal mass or adenopathy. Negative for aneurysm, dissection or pulmonary embolus. Prominent nodes are seen at the axillary regions bilaterally. The largest is on the right (series 2, image 81) measuring 1.3 cm in the greatest short axis diameter. Imaging of the upper abdomen demonstrates calcified gallstones. IMPRESSION: 1. Negative for pulmonary embolus or pneumonia. 2. Calcified gallstones. - Medical Decision Making This patient presents to the emergency department after having a syncopal episode at home. She says that she had some generalized chest pain earlier in the day. Since being in the emergency department, the patient denies any significant pain. She does not appear to have any focal, motor or sensory deficits and her cranial nerves are intact. EKG was done that does not show any signs of ST elevation RI, dysrhythmia or ischemia. CT scan of the head was done without contrast that does not show any bleed, shift, mass, ischemia, or any other acute process. Patient's labs have been mostly unremarkable except for a slightly elevated and equivocal d-dimer. For this reason, the patient had a CT angiography of the chest does not show any signs of pulmonary embolism, pneumothorax, dissection, or any other acute process. There is an incidental finding of some calcified gallstones. The patient had a low-grade fever upon arrival but no source of infection has been found and the patient had no complaints of any fever, chills, sweats. The patient also had some anemia but it does not appear to require transfusion and is consistent with her previous visits. The patient was seen ambulatory in the emergency department and both appears and feels stable. She is currently without any chest discomfort and is low on the Heart score. Her information has been faxed over to [facility] cardiology for a close outpatient follow-up within the next 48 hours. The patient has been instructed to return to the emergency department with any return of her chest pain, any further episodes of passing out, or with any acute distress. - Differential Diagnosis dysrhythmia, TIA, RI, PE Critical Care Time: No Critical care attestation.: If time is entered above; I have spent that time in minutes in the direct care of this critically ill patient, excluding procedure time. ED Disposition Clinical Impression: History of HIV or AIDS, Intermittent chest pain Syncope Qualifiers: Syncope type: unspecified Qualified Code(s): R55 - Syncope and collapse Disposition: DC-01 TO HOME OR SELFCARE Is pt being admited?: No Condition: Stable Instructions: Chest Pain (ED), Syncope (ED) Additional Instructions: Please follow-up with your infectious disease physician. I am giving you some referrals for local primary care physicians and clinics. You should receive a phone call in the next day or so from [facility] cardiology setting you up for an outpatient appointment in the next 48 hours. However, he should return to the emergency department immediately, or call 911, with any return of your chest pain, further episodes of passing out, worsening of your symptoms, or with any acute distress. Referrals: [facility] [Outside] - 2-3 Days [facility] [Provider Group] - 2-3 Days KAYCE YEN MD [Staff Physician] - 2-3 Days Time of Disposition: 03:37 Heart Score - HEART Score History: Slightly suspicious EKG: Normal Age: < 45 Risk factors: 1-2 risk factors Troponin: < normal limit HEART Score: 1 - Critical Actions Critical Actions: 0-3 pts:0.9-1.7%risk of adverse cardiac event.Candidate for discharge
[2019-02-14 23:23] LABS: Basophils % (Auto) 0.3 % (0.0-1.8); Eosinophils % (Auto) 1.1 % (0.0-4.3); Hematocrit 25.3 % (30.3-42.9); Hemoglobin 8.3 gm/dl (10.1-14.3); Lymphocytes # (Auto) 1.5 K/mm3 (1.2-5.4); Mean Corpuscular HGB Conc 33 % (30-34); Mean Corpuscular Volume 77 fl (79-97); Monocytes # (Auto) 0.4 K/mm3 (0.0-0.8); Monocytes % (Auto) 9.3 % (0.0-7.3); Platelet Count 250 K/mm3 (140-440); Red Blood Count 3.27 M/mm3 (3.65-5.03); Red Cell Distribution Width 14.8 % (13.2-15.2)
[2019-02-14 23:35] LABS: Creatine Kinase MB 2.3 ng/mL (0.0-4.0)
[2019-02-14 23:36] LABS: Alanine Aminotransferase 19 units/L (7-56); Albumin 3.5 g/dL (3.9-5); BUN/Creatinine Ratio 22; Blood Urea Nitrogen 20 mg/dL (7-17); Calcium 9.1 mg/dL (8.4-10.2); Hemolysis Index 0
[2019-02-15] MEDS ORDERED: TYLENOL PO ONE (00:12)
--- NOTE | 2019-02-15 00:48 | XRay Report ---
CHEST 2 VIEWS INDICATION: CP. COMPARISON: 01/07/2018. FINDINGS: Support devices: None. Heart: Within normal limits. Lungs/Pleura: No acute air space or interstitial disease. No significant pleural effusion. IMPRESSION: No acute findings. Signer Name: Evelio Nolan MD Signed: 02/15/2019 12:44 AM Workstation Name: [id number]
--- NOTE | 2019-02-15 02:46 | Cat Scan Report ---
CT head/brain wo con INDICATION: headache, Syncope. TECHNIQUE: All CT scans at this location are performed using the following dose modulation technique: Automated exposure control. CONTRAST: None. COMPARISON: CT brain 01/07/2018. FINDINGS: The ventricular system is appropriate in size and configuration without midline shift. Nega tive for mass, stroke or hemorrhage. Imaged portions of the paranasal sinuses are clear. IMPRESSION: Negative CT brain without contrast. Signer Name: Evelio Nolan MD Signed: 02/15/2019 2:42 AM Workstation Name: [id number]
--- NOTE | 2019-02-15 03:23 | Cat Scan Report ---
CT angio chest INDICATION / CLINICAL INFORMATION: Syncope. Chest pain. TECHNIQUE: Axial CT images were obtained after injection of Omnipaque 350, 100 cc IV injection. IV contrast usin g CTA protocol. 3 plane MIP / 3D reconstructions were produced. All CT scans at this location are per formed using CT dose reduction for ALARA by means of automated exposure control. COMPARISON: None available. FINDINGS: Negative for lung mass, infiltrate or pleural fluid. No mediastinal mass or adenopathy. Negative for aneurysm, dissection or pulmonary embolus. Prominent nodes are seen at the axillary regions bilaterally. The largest is on the right (series 2, image 81) measuring 1.3 cm in the greatest short axis diameter. Imaging of the upper abdomen demonstrates calcified gallstones. IMPRESSION: 1. Negative for pulmonary embolus or pneumonia. 2. Calcified gallstones. Signer Name: Evelio Nolan MD Signed: 02/15/2019 3:19 AM Workstation Name: [id number]
[2019-02-15 03:36] VITALS: BP 125/76
== END 2019-02-15 03:51 | disposition home or self-care (01) ==
LOC: ED 22:32
DX: R55 Syncope and collapse (principal); R07.89 Other chest pain; I50.9 Heart failure, unspecified; E11.9 Type 2 diabetes mellitus without complications; Z98.890 Other specified postprocedural states; Z90.710 Acquired absence of both cervix and uterus; Z79.899 Other long term (current) drug therapy; Z88.0 Allergy status to penicillin
CPT/HCPCS: 36415; 70450; 71046; 71275; 80053; 82550; 82553; 84443; 84484; 84703; 85025; 85379; 93005; 93010; 99285; Q9967; 80320; G0480

== ENCOUNTER 2019-05-24 16:12 | Emergency (ER) | payer MEDICAID ==
--- NOTE | 2019-05-24 16:18 | Emergency Department Report ---
Blank Doc - Documentation Documentation: 34-year-old female that presents with chest pain and SOB. This initial assessment/diagnostic orders/clinical plan/treatment(s) is/are subject to change based on patient's health status, clinical progression and re- assessment by fellow clinical providers in the ED. Further treatment and workup at subsequent clinical providers discretion. Patient/guardians urged not to elope from the ED as their condition may be serious if not clinically assessed and managed. Initial orders include: 1- Patient sent to [facility] for further evaluation and treatment 2- EKG 3- labs 4- CXR
[2019-05-24 17:07] LABS: Basophils % (Auto) 0.3 % (0.0-1.8); Eosinophils # (Auto) 0.2 K/mm3 (0.0-0.4); Hematocrit 26.6 % (30.3-42.9); Hemoglobin 8.7 gm/dl (10.1-14.3); Lymphocytes # (Auto) 2.4 K/mm3 (1.2-5.4); Lymphocytes % (Auto) 37.1 % (13.4-35.0); Mean Corpuscular HGB Conc 33 % (30-34); Mean Corpuscular Volume 79 fl (79-97); Monocytes # (Auto) 0.9 K/mm3 (0.0-0.8); Monocytes % (Auto) 13.1 % (0.0-7.3); Platelet Count 271 K/mm3 (140-440); Red Blood Count 3.37 M/mm3 (3.65-5.03)
[2019-05-24 17:32] LABS: BUN/Creatinine Ratio 13; Blood Urea Nitrogen 10 mg/dL (7-17); Calcium 8.8 mg/dL (8.4-10.2); Hemolysis Index 0
--- NOTE | 2019-05-24 17:50 | XRay Report ---
CHEST 2 VIEWS INDICATION / CLINICAL INFORMATION: Chest pain. COMPARISON: 02/15/2019 FINDINGS: SUPPORT DEVICES: None. HEART / MEDIASTINUM: No significant abnormality. LUNGS / PLEURA: No significant pulmonary or pleural abnormality. No pneumothorax. ADDITIONAL FINDINGS: No significant additional findings. IMPRESSION: 1. No acute findings. Signer Name: Olegario Gary MD Signed: 05/24/2019 5:45 PM Workstation Name: [email or web address]
[2019-05-24 19:32] VITALS: BP 129/93
[2019-05-24] MEDS ORDERED: HYDROcodone/ACETAMINOPHEN 5-325 MG TAB PO ONE (21:56)
--- NOTE | 2019-05-24 22:22 | Emergency Department Report ---
ED General Adult HPI - General Chief complaint: Chest Pain Stated complaint: CHEST PAIN/SOB Time Seen by Provider: 05/24/19 16:16 Source: patient Mode of arrival: Ambulatory Limitations: No Limitations - History of Present Illness Initial comments: 34-year-old female that presents with chest pain and SOB. Patient is to occasions for same. there is no nausea vomiting no fever chills no back pain or flank pain no shortness of breath patient history is even nonlabored Onset/Timin -: days(s) Location: chest Severity scale (0 -10): 5 Quality: burning Improves with: none Worsens with: none Associated Symptoms: chest pain, nausea/vomiting Treatments Prior to Arrival: none - Related Data Previous Rx's Medication Instructions Recorded Last Taken Type Ibuprofen [Motrin] 800 mg PO Q8HR PRN #20 tablet 11/07/17 Unknown Rx Ondansetron [Zofran Odt] 4 mg PO Q8HR PRN #14 tab.rapdis 11/11/17 Unknown Rx medroxyPROGESTERone ACETATE 10 mg PO QDAY #10 tablet 12/02/17 Unknown Rx [Provera] traMADoL [Ultram] 50 mg PO Q8HR PRN #15 tablet 12/02/17 Unknown Rx traMADoL [Ultram 50 MG tab] 50 mg PO Q4HR PRN #14 tablet 01/07/18 Unknown Rx Naproxen 500 mg PO BID PRN #30 tablet 05/24/19 Unknown Rx Allergies Allergy/AdvReac Type Severity Reaction Status Date / Time Penicillins Allergy Swelling Verified 11/04/17 13:28 ED Review of Systems ROS: Stated complaint: CHEST PAIN/SOB Other details as noted in HPI Constitutional: denies: chills, fever Eyes: denies: eye pain, eye discharge, vision change ENT: denies: ear pain, throat pain Respiratory: denies: cough, shortness of breath, wheezing Cardiovascular: denies: chest pain, palpitations, paroxysmal nocturnal dyspnea Endocrine: no symptoms reported Gastrointestinal: denies: abdominal pain, nausea, diarrhea Genitourinary: denies: urgency, dysuria, discharge Musculoskeletal: denies: back pain, joint swelling, arthralgia Skin: denies: rash, lesions Neurological: denies: headache, weakness, paresthesias Psychiatric: denies: anxiety, depression Hematological/Lymphatic: denies: easy bleeding, easy bruising ED Past Medical Hx - Past Medical History Previous Medical History?: Yes Hx Hypertension: No Hx Congestive Heart Failure: Yes Hx Asthma: No Hx HIV: Yes Additional medical history: HIV positive - Surgical History Past Surgical History?: Yes Hx Breast Surgery: Yes (reduction) Additional Surgical History: Mirena, HYSTEROSCOPY. c-sectin x3 - Social History Smoking Status: Never Smoker Substance Use Type: None - Medications Home Medications: Home Medications Medication Instructions Recorded Confirmed Last Taken Type Ibuprofen [Motrin] 800 mg PO Q8HR PRN #20 tablet 11/07/17 06/01/18 Unknown Rx Ondansetron [Zofran Odt] 4 mg PO Q8HR PRN #14 tab.rapdis 11/11/17 06/01/18 Unknown Rx medroxyPROGESTERone ACETATE 10 mg PO QDAY #10 tablet 12/02/17 06/01/18 Unknown Rx [Provera] traMADoL [Ultram] 50 mg PO Q8HR PRN #15 tablet 12/02/17 06/01/18 Unknown Rx traMADoL [Ultram 50 MG tab] 50 mg PO Q4HR PRN #14 tablet 01/07/18 06/01/18 Unknown Rx Naproxen 500 mg PO BID PRN #30 tablet 05/24/19 Unknown Rx ED Physical Exam - General Limitations: No Limitations General appearance: alert, in no apparent distress, cachectic, postictal - Eye Eye exam: Present: normal appearance, PERRL, EOMI Pupils: Present: normal accommodation, irregular - ENT ENT exam: Present: mucous membranes moist - Neck Neck exam: Present: normal inspection - Respiratory Respiratory exam: Present: normal lung sounds bilaterally, chest wall tenderness (right antreiror u trtils;). Absent: respiratory distress, wheezes, rhonchi - Cardiovascular Cardiovascular Exam: Present: regular rate, normal rhythm, normal heart sounds. Absent: systolic murmur, diastolic murmur, rubs, gallop - GI/Abdominal GI/Abdominal exam: Present: soft, normal bowel sounds. Absent: mass, bruit, hernia - Rectal Rectal exam: Present: deferred - External exam: Present: normal external exam. Absent: erythema, swelling, lesions, bleeding Speculum exam: Present: other (deferred by patient) - Extremities Exam Extremities exam: Present: normal inspection - Back Exam Back exam: Present: normal inspection, full ROM. Absent: tenderness, CVA tenderness (R), muscle spasm, paraspinal tenderness, vertebral tenderness, rash noted - Neurological Exam Neurological exam: Present: alert, oriented X3, reflexes normal - Psychiatric Psychiatric exam: Present: normal affect, normal mood - Skin Skin exam: Present: warm, dry, intact, normal color. Absent: rash ED Course Vital Signs 05/24/19 05/24/19 16:21 19:31 Temperature 98.0 F Pulse Rate 110 H 94 H Respiratory 20 16 Rate Blood Pressure 158/84 Blood Pressure 129/93 [Right] O2 Sat by Pulse 100 98 Oximetry ED Medical Decision Making - Lab Data Result diagrams: 05/24/19 16:31 05/24/19 16:31 Critical Care Qualifying Procedures Procedure Code Date FLUOROSCOPY OF R JUGULAR VEIN USING OT CONTRAST, GUIDANCE [id number] 07/14/16 INSERT INFUSION DEV IN R INT JUGULAR VEIN, PERC [id number] 07/14/16 INSERTION OF INFUSION DEV INTO L FEMOR VEIN, PERC APPROACH [id number] 07/14/16 MEASURE OF ARTERIAL SATURATION, PERIPHERAL, MEDICAL OFFICE SECRETARY APPROACH [id number] 07/14/16 TRANSFUSE NONAUT RED BLOOD CELLS IN PERIPH VEIN, PERC [id number] 07/14/16 ULTRASONOGRAPHY OF LEFT LOWER EXTREMITY VEINS, GUIDANCE [id number] 07/14/16 - Medical Decision Making this is chest wall pain , pain is relieved, heart score is 0, pt with nad at this time, pt is ambulatory with steay gait. will follow up with pcp in 2-3 days. Critical care attestation.: If time is entered above; I have spent that time in minutes in the direct care of this critically ill patient, excluding procedure time. ED Disposition Clinical Impression: Chest wall pain Disposition: DC-01 TO HOME OR SELFCARE Is pt being admited?: No Does the pt Need Aspirin: No Condition: Undetermined Instructions: Chest Pain (ED) Prescriptions: Naproxen 500 mg PO BID PRN #30 tablet PRN Reason: pain Referrals: PRIMARY CARE, [Primary Care Provider] - 3-5 Days Forms: Work/School Release Form(ED) Time of Disposition: 22:31
== END 2019-05-24 22:54 | disposition home or self-care (01) ==
LOC: ED 16:12
DX: R07.89 Other chest pain (principal); R06.02 Shortness of breath; R11.2 Nausea with vomiting, unspecified; I50.9 Heart failure, unspecified; Z79.899 Other long term (current) drug therapy; Z88.0 Allergy status to penicillin
CPT/HCPCS: 36415; 71046; 80048; 84484; 84703; 85025; 93005; 93010

== ENCOUNTER 2019-06-02 10:37 | Outpatient (CLI) | payer MEDICAID ==
[2019-06-02 11:19] LABS: Hematocrit 26.8 % (30.3-42.9); Hemoglobin 8.7 gm/dl (10.1-14.3); Mean Corpuscular HGB Conc 33 % (30-34); Mean Corpuscular Volume 79 fl (79-97); Platelet Count 210 K/mm3 (140-440); Red Blood Count 3.42 M/mm3 (3.65-5.03)
[2019-06-02 11:47] LABS: Erythrocyte Sedimentation Rate 99 mm/Hr (0-20)
--- NOTE | 2019-06-02 12:04 | XRay Report ---
LUMBOSACRAL SPINE, 5 VIEWS INDICATION: M54.5 LOW BACK PAIN. COMPARISON: None. IMPRESSION: Normal alignment. No significant discogenic DJD or facet arthropathy. No acute osseous or soft tissue abnormality. Signer Name: Charles Davidson Jr, MD Signed: 06/02/2019 12:00 PM Workstation Name: [id number]
--- NOTE | 2019-06-02 12:04 | XRay Report ---
RIGHT KNEE, 3 VIEWS INDICATION: M25.561 PAIN IN RIGHT KNEE. COMPARISON: None. IMPRESSION: No acute osseous or soft tissue abnormality. No significant DJD. Signer Name: Charles Davidson Jr, MD Signed: 06/02/2019 12:00 PM Workstation Name: [id number]
[2019-06-06 22:15] LABS: ANA Screen, IFA Negative (Negative)
== END 2019-06-02 10:38 | disposition home or self-care (01) ==
LOC: XRAY 10:37
PROVIDERS: ATTEND Orthopaedic Surgery
DX: M25.561 Pain in right knee (principal); M54.5 Low back pain
CPT/HCPCS: 36415; 72110; 84550; 85027; 85652; 86038; 86618

== ENCOUNTER 2020-08-04 16:54 | Emergency (ER) | payer MEDICAID ==
[2020-08-04 17:18] VITALS: BP 150/94
[2020-08-04] MEDS ORDERED: ACETAMINOPHEN 325 MG TAB ONE (17:19)
[2020-08-04] MEDS ORDERED: ACETAMINOPHEN 325 MG TAB PO ONE (17:21)
--- NOTE | 2020-08-04 17:25 | Emergency Department Report ---
ED General Adult HPI - General Chief complaint: Pain General Stated complaint: WEAKNESS/BODY ACHES PUI?: Yes Time Seen by Provider: 08/04/20 17:20 Source: patient Mode of arrival: Ambulatory Limitations: No Limitations - Related Data Previous Rx's Medication Instructions Recorded Last Taken Type Ibuprofen [Motrin] 800 mg PO Q8HR PRN #20 tablet 11/07/17 Unknown Rx Ondansetron [Zofran Odt] 4 mg PO Q8HR PRN #14 tab.rapdis 11/11/17 Unknown Rx medroxyPROGESTERone ACETATE 10 mg PO QDAY #10 tablet 12/02/17 Unknown Rx [Provera] traMADoL [Ultram] 50 mg PO Q8HR PRN #15 tablet 12/02/17 Unknown Rx traMADoL [Ultram 50 MG tab] 50 mg PO Q4HR PRN #14 tablet 01/07/18 Unknown Rx Naproxen 500 mg PO BID PRN #30 tablet 05/24/19 Unknown Rx Allergies Allergy/AdvReac Type Severity Reaction Status Date / Time Penicillins Allergy Swelling Verified 08/04/20 17:13 ED Review of Systems ROS: Stated complaint: WEAKNESS/BODY ACHES Other details as noted in HPI ED Past Medical Hx - Past Medical History Hx Hypertension: No Hx Congestive Heart Failure: Yes Hx Asthma: No Hx HIV: Yes Additional medical history: HIV positive - Surgical History Hx Breast Surgery: Yes (reduction) Additional Surgical History: Mirena, HYSTEROSCOPY. c-sectin x3 - Social History Smoking Status: Current Every Day Smoker - Medications Home Medications: Home Medications Medication Instructions Recorded Confirmed Last Taken Type Ibuprofen [Motrin] 800 mg PO Q8HR PRN #20 tablet 11/07/17 06/01/18 Unknown Rx Ondansetron [Zofran Odt] 4 mg PO Q8HR PRN #14 tab.rapdis 11/11/17 06/01/18 Unknown Rx medroxyPROGESTERone ACETATE 10 mg PO QDAY #10 tablet 12/02/17 06/01/18 Unknown Rx [Provera] traMADoL [Ultram] 50 mg PO Q8HR PRN #15 tablet 12/02/17 06/01/18 Unknown Rx traMADoL [Ultram 50 MG tab] 50 mg PO Q4HR PRN #14 tablet 01/07/18 06/01/18 Unknown Rx Naproxen 500 mg PO BID PRN #30 tablet 05/24/19 Unknown Rx ED Physical Exam - General Limitations: No Limitations ED Course Vital Signs 08/04/20 17:16 Temperature 99.1 F Pulse Rate 91 H Respiratory 16 Rate Blood Pressure 150/94 O2 Sat by Pulse 100 Oximetry Critical care attestation.: If time is entered above; I have spent that time in minutes in the direct care of this critically ill patient, excluding procedure time. ED Disposition Condition: Stable
--- NOTE | 2020-08-04 18:03 | Emergency Department Report ---
Chief Complaint: Pain General Stated Complaint: WEAKNESS/BODY ACHES Time Seen by Provider: 08/04/20 17:20 - HPI History of Present Illness: Patient is a 35-year-old female presents to the ED today complaining of generalized body aches times couple of days. Patient states she went and got tested for COVID-19 today and tested positive. Patient states she presents here today because she is having generalized body aches. Patient denies fever/chills/chest pain/shortness of breath/abdominal pain or any other symptoms. - ROS Review of Systems: As noted in HPI - Exam Vital Signs: Vital Signs 08/04/20 17:16 Temperature 99.1 F Pulse Rate 91 H Respiratory 16 Rate Blood Pressure 150/94 O2 Sat by Pulse 100 Oximetry Physical Exam: GENERAL: Alert and oriented x3, no apparent distress, Normal Gait, atraumatic. HEAD: Head is normocephalic and a-traumatic. LUNGS: Symetrical with respiration, No wheezing, no rales or crackles, CTAB. HEART: S1, S2 present, regular rate and rhythm without murmur, no rubs, no gallops. Non tender to palpation SKIN: Warm and dry, No lesions, No ulceration or induration present. MSE screening note: Focused history and physical exam performed. Due to findings the following was ordered: ED Medical Decision Making - Medical Decision Making 35-year-old female presented with body aches secondary to the COVID-19. Chest x-ray was ordered, labs ordered. Tylenol given in triage for body aches. After advising patient that she would be screened for pneumonia. Vital signs are normal. Patient is in no acute or respiratory distress. X-ray was pending. Patient decided to walk out right after being triaged. Nurse's triage nurse made me aware after patient had walked out ED Disposition for MSE Clinical Impression: Body aches Disposition: Z-07 MED SCREENING EXAM-LEFT Is pt being admited?: No Does the pt Need Aspirin: No Condition: Stable
== END 2020-08-04 17:30 | disposition left against medical advice (07) ==
LOC: ED 16:54
DX: M79.10 Myalgia, unspecified site (principal); Z53.21 Procedure and treatment not carried out due to patient leaving prior to being seen by health care provider

== ENCOUNTER 2020-11-13 16:55 | Observation (INO) | payer MEDICAID ==
[2020-11-13] MEDS ORDERED: ASPIRIN 325 MG TAB PO ONE (17:04)
[2020-11-13 17:34] LABS: Basophils % (Auto) 0.4 % (0.0-1.8); Eosinophils # (Auto) 0.1 K/mm3 (0.0-0.4); Eosinophils % (Auto) 2.6 % (0.0-4.3); Hematocrit 27.4 % (30.3-42.9); Lymphocytes # (Auto) 1.2 K/mm3 (1.2-5.4); Mean Corpuscular HGB Conc 33 % (30-34); Mean Corpuscular Volume 77 fl (79-97); Monocytes # (Auto) 0.6 K/mm3 (0.0-0.8); Monocytes % (Auto) 11.2 % (0.0-7.3); Platelet Count 315 K/mm3 (140-440); Red Blood Count 3.55 M/mm3 (3.65-5.03)
[2020-11-13 17:44] LABS: INR 1.11 (0.87-1.13)
[2020-11-13 17:45] LABS: Partial Thromboplastin Time 28.9 Sec. (24.2-36.6)
--- NOTE | 2020-11-13 17:54 | XRay Report ---
XR chest routine 2V INDICATION / CLINICAL INFORMATION: CP/ DYSPNEA COMPARISON: May 24, 2019 FINDINGS: SUPPORT DEVICES: None. HEART / MEDIASTINUM: No significant abnormality. LUNGS / PLEURA: Bilateral patchy parenchymal opacities. Costophrenic sulci are sharp. No pneumothorax . ADDITIONAL FINDINGS: No significant additional findings. IMPRESSION: 1. Bilateral airspace disease concerning for infection. Covid is a consideration. Signer Name: Leobardo Moreno MD Signed: 11/13/2020 5:49 PM Workstation Name: [id number]
[2020-11-13 18:00] LABS: Alanine Aminotransferase 14 units/L (7-56); Albumin 3.6 g/dL (3.9-5); Blood Urea Nitrogen 8 mg/dL (7-17); Calcium 8.8 mg/dL (8.4-10.2); Hemolysis Index 0
[2020-11-13 18:01] LABS: BUN/Creatinine Ratio 11
--- NOTE | 2020-11-13 21:17 | Emergency Department Report ---
ED General Adult HPI - General Chief complaint: Dyspnea/Respdistress Stated complaint: LIGHT HEADED PUI?: Yes Time Seen by Provider: 11/13/20 21:09 Source: patient, EMS ( EMS documentation not available at time of chart d ictation ), RN notes reviewed, old records reviewed Mode of arrival: Wheelchair Limitations: Physical Limitation - History of Present Illness Initial comments: The patient was evaluated in the emergency department for symptoms described in the history of present illness. He/she was evaluated in the context of the global COVID-19 pandemic, which necessitated consideration that the patient might be at risk for infection with the virus that causes COVID-19. Institutional protocols and algorithms that pertain to the evaluation of patients at risk for COVID-19 are in a state of rapid change based on infor mation released by regulatory bodies including the CDC and federal and state organizations. These policies and algorithms were followed during the patient's care in the emergency department. Please note that these policies, procedures and recommendations changed on a rapid basis. During the history and physical examination, I had on complete personal protective equipment. This is a 35-year-old female. She states that she is not . She has a past medical history of HIV. She follows at the [facility] for her infectious disease care. She has not received a COVID-19 vaccination. She is on antiviral therapy, and believes that she is on Biktarvy. She presents to the ER today with a 1 day complaints of cough, chest tightness, shortness of breath, malaise, fatigue and headache. No fever. No loss of taste or smell. No vomiting. No dysuria. Positive body aches. Positive chest tightness. No leg pain or leg swelling. Denies travel, surgery, immobilization, DVT and pulmonary embolism risk factors. Please note that this patient had a CTA chest, January 2019, October 2017, both of which were negative for pulmonary embolism. The patient is insistent that she has been staying at home and isolating. She states that she has not gone out at all. She also reports that she lives with family members at home, although she states that "none of them have Covid." -: Gradual, days(s) Location: head, chest, abdomen, left, right, upper extremity, lower extremity Radiation: non-radiation Quality: aching Consistency: constant Improves with: rest Worsens with: movement - Related Data Previous Rx's Medication Instructions Recorded Last Taken Type Ibuprofen [Motrin] 800 mg PO Q8HR PRN #20 tablet 11/07/17 Unknown Rx Ondansetron [Zofran Odt] 4 mg PO Q8HR PRN #14 tab.rapdis 11/11/17 Unknown Rx medroxyPROGESTERone ACETATE 10 mg PO QDAY #10 tablet 12/02/17 Unknown Rx [Provera] traMADoL [Ultram] 50 mg PO Q8HR PRN #15 tablet 12/02/17 Unknown Rx traMADoL [Ultram 50 MG tab] 50 mg PO Q4HR PRN #14 tablet 01/07/18 Unknown Rx Naproxen 500 mg PO BID PRN #30 tablet 05/24/19 Unknown Rx Allergies Allergy/AdvReac Type Severity Reaction Status Date / Time Penicillins Allergy Swelling Verified 11/13/20 16:58 ED Review of Systems ROS: Stated complaint: LIGHT HEADED Other details as noted in HPI Constitutional: malaise, weakness Eyes: denies: eye discharge ENT: congestion Respiratory: shortness of breath Cardiovascular: chest pain Gastrointestinal: nausea. denies: abdominal pain Genitourinary: denies: dysuria Musculoskeletal: back pain, arthralgia, myalgia Neurological: headache, weakness Psychiatric: anxiety Hematological/Lymphatic: denies: easy bleeding ED Past Medical Hx - Past Medical History Hx Hypertension: No Hx Congestive Heart Failure: Yes Hx Asthma: No Hx HIV: Yes Additional medical history: HIV positive - Surgical History Hx Breast Surgery: Yes (reduction) Additional Surgical History: Mirena, HYSTEROSCOPY. c-sectin x3 - Social History Smoking Status: Never Smoker Substance Use Type: None - Medications Home Medications: Home Medications Medication Instructions Recorded Confirmed Last Taken Type Ibuprofen [Motrin] 800 mg PO Q8HR PRN #20 tablet 11/07/17 06/01/18 Unknown Rx Ondansetron [Zofran Odt] 4 mg PO Q8HR PRN #14 tab.rapdis 11/11/17 06/01/18 Unknown Rx medroxyPROGESTERone ACETATE 10 mg PO QDAY #10 tablet 12/02/17 06/01/18 Unknown Rx [Provera] traMADoL [Ultram] 50 mg PO Q8HR PRN #15 tablet 12/02/17 06/01/18 Unknown Rx traMADoL [Ultram 50 MG tab] 50 mg PO Q4HR PRN #14 tablet 01/07/18 06/01/18 Unknown Rx Naproxen 500 mg PO BID PRN #30 tablet 05/24/19 Unknown Rx ED Physical Exam - General Limitations: Physical Limitation General appearance: alert, anxious, obese - Head Head exam: Present: atraumatic, normocephalic - Eye Eye exam: Present: normal appearance, EOMI. Absent: nystagmus - ENT ENT exam: Present: normal exam, normal orophraynx, mucous membranes moist, normal external ear exam - Neck Neck exam: Present: normal inspection, full ROM. Absent: tenderness, meningismus - Respiratory Respiratory exam: Present: other (Pulmonary auscultation not performed secondary to lack of disposable stethoscope). Absent: stridor - Cardiovascular Cardiovascular Exam: Present: tachycardia (Tachycardic rate seen on teletypesetter monitor), other (Cardiac auscultation not performed secondary to lack of disposable stethoscope) - GI/Abdominal GI/Abdominal exam: Present: soft. Absent: distended, tenderness, guarding, rebound, rigid, pulsatile mass - Extremities Exam Extremities exam: Present: normal inspection, full ROM, other (2+ pulses noted in the bilateral upper and lower extremities. There is no palpable cord. negative Homans sign. Muscular compartments are soft. The pelvis is stable.). Absent: pedal edema, calf tenderness - Back Exam Back exam: Present: normal inspection, full ROM. Absent: tenderness, CVA tenderness (R), CVA tenderness (L), paraspinal tenderness, vertebral tenderness - Neurological Exam Neurological exam: Present: alert, normal gait, other (No facial droop. Tongue midline. Extraocular movements intact bilaterally. Facial sensation intact to light touch in V1, V2, V3 distribution bilaterally. 5 and a 5 strength in 4 extremities. Sensation intact to light touch in 4 extremities.). Absent: motor sensory deficit - Psychiatric Psychiatric exam: Present: anxious - Skin Skin exam: Present: warm, dry, intact, normal color. Absent: rash ED Course Vital Signs 11/13/20 11/13/20 17:02 22:19 Temperature 99.4 F Pulse Rate 112 H Respiratory 18 18 Rate Blood Pressure 114/78 Blood Pressure 134/74 [Right] O2 Sat by Pulse 97 98 Oximetry - Reevaluation(s) Reevaluation #1: 11/13/20 22:36 Differential diagnosis, including but not limited to: Pneumonia, COVID-19, PCP pneumonia Assessment and plan: 35-year-old female, who has a low-grade temperature and is tachycardic, who with trial of ambulation, desaturated to 92% on room air, could not complete 5-minute walk test on ambulation, secondary to fatigue and shortness of breath, with bilateral pneumonia, suspicious for COVID-19. Given presence of HIV, immune compromise, hypoxia, bilateral infiltrates, we have recommended admission to the hospital for supportive care and initiation of steroids, supplemental oxygen, and urgent ID consultation, to determine if patient is a suitable candidate for remdesivir. Courtesy consultation is placed to infectious disease, will defer to the inpatient team to follow this up. Review of old charts has indicated that the patient has received meropenem without difficulty, although she has indicated in the past that her tongue swells up if she gets penicillin, although she tells me that she has no medication allergies. Patient will be treated supportively and symptomatically with steroids, supplemental oxygen, and acetaminophen. Assuming she is not , we will initiate levofloxacin. The patient stated that she is not , and she is amenable to admission an d hospitalization. Hospital physician, Dr. Camarillo, to admit to [facility] 11/13/20 22:38 Microcytic anemia is chronic, this is likely anemia of chronic disease. ED Medical Decision Making - Lab Data Result diagrams: 11/13/20 17:23 11/13/20 21:56 Vital Signs 11/13/20 17:02 Temperature 99.4 F Pulse Rate 112 H Respiratory 18 Rate Blood Pressure 114/78 O2 Sat by Pulse 97 Oximetry Lab Results 11/13/20 11/13/20 11/13/20 Range/Units 17:23 17:23 17:23 WBC 5.0 (4.5-11.0) K/mm3 RBC 3.55 L (3.65-5.03) M/mm3 Hgb 9.0 L (10.1-14.3) gm/dl Hct 27.4 L (30.3-42.9) % MCV 77 L (79-97) fl MCH 25 L (28-32) pg MCHC 33 (30-34) % RDW 14.0 (13.2-15.2) % Plt Count 315 (140-440) K/mm3 Lymph % (Auto) 25.0 (13.4-35.0) % [place] % (Auto) 11.2 H (0.0-7.3) % Eos % (Auto) 2.6 (0.0-4.3) % Baso % (Auto) 0.4 (0.0-1.8) % Lymph # (Auto) 1.2 (1.2-5.4) K/mm3 [place] # (Auto) 0.6 (0.0-0.8) K/mm3 Eos # (Auto) 0.1 (0.0-0.4) K/mm3 Baso # (Auto) 0.0 (0.0-0.1) K/mm3 Seg Neutrophils % 60.8 (40.0-70.0) % Seg Neutrophils # 3.0 (1.8-7.7) K/mm3 PT 14.1 (12.2-14.9) Sec. INR 1.11 (0.87-1.13) APTT 28.9 (24.2-36.6) Sec. Sodium 132 L (137-145) mmol/L Potassium 3.9 (3.6-5.0) mmol/L Chloride 100.9 (98-107) mmol/L Carbon Dioxide 22 (22-30) mmol/L Anion Gap 13 mmol/L BUN 8 (7-17) mg/dL Creatinine 0.7 (0.6-1.2) mg/dL Estimated GFR > 60 ml/min BUN/Creatinine Ratio 11 % Glucose 148 H (65-100) mg/dL Calcium 8.8 (8.4-10.2) mg/dL Total Bilirubin 0.30 (0.1-1.2) mg/dL AST 28 (5-40) units/L ALT 14 (7-56) units/L Alkaline Phosphatase 97 (35-129) units/L Troponin T < 0.010 (0.00-0.029) ng/mL NT-Pro-B Natriuret Pep (0-450) pg/mL Total Protein 9.5 H (6.3-8.2) g/dL Albumin 3.6 L (3.9-5) g/dL Albumin/Globulin Ratio 0.6 % 11/13/20 11/13/20 Range/Units 17:23 20:08 WBC (4.5-11.0) K/mm3 RBC (3.65-5.03) M/mm3 Hgb (10.1-14.3) gm/dl Hct (30.3-42.9) % MCV (79-97) fl MCH (28-32) pg MCHC (30-34) % RDW (13.2-15.2) % Plt Count (140-440) K/mm3 Lymph % (Auto) (13.4-35.0) % [place] % (Auto) (0.0-7.3) % Eos % (Auto) (0.0-4.3) % Baso % (Auto) (0.0-1.8) % Lymph # (Auto) (1.2-5.4) K/mm3 [place] # (Auto) (0.0-0.8) K/mm3 Eos # (Auto) (0.0-0.4) K/mm3 Baso # (Auto) (0.0-0.1) K/mm3 Seg Neutrophils % (40.0-70.0) % Seg Neutrophils # (1.8-7.7) K/mm3 PT (12.2-14.9) Sec. INR (0.87-1.13) APTT (24.2-36.6) Sec. Sodium (137-145) mmol/L Potassium (3.6-5.0) mmol/L Chloride (98-107) mmol/L Carbon Dioxide (22-30) mmol/L Anion Gap mmol/L BUN (7-17) mg/dL Creatinine (0.6-1.2) mg/dL Estimated GFR ml/min BUN/Creatinine Ratio % Glucose (65-100) mg/dL Calcium (8.4-10.2) mg/dL Total Bilirubin (0.1-1.2) mg/dL AST (5-40) units/L ALT (7-56) units/L Alkaline Phosphatase (35-129) units/L Troponin T < 0.010 (0.00-0.029) ng/mL NT-Pro-B Natriuret Pep 10.44 (0-450) pg/mL Total Protein (6.3-8.2) g/dL Albumin (3.9-5) g/dL Albumin/Globulin Ratio % - EKG Data -: EKG Interpreted by Ri EKG shows normal: sinus rhythm Rate: tachycardia - EKG Data 11/13/20 22:39 EKG interpreted at 17: 10 Sinus rhythm, tachycardia, rate 109 bpm. Normal axis and normal intervals. Minimal motion artifact. This is an abnormal EKG, however, it appears to be unchanged from prior EKG from May 2019. This EKG is not morphologically consistent with a STEMI - Radiology Data Radiology results: report reviewed, image reviewed [facility] [address] [place] [address] XRay Report Signed Patient: ROGELIO DE LA VEGA MR#: [id number] : 1985 Acct:[id number] Age/Sex: 35 / F ADM Date: 11/13/20 Loc: ED Attending Dr: Ordering Physician: LEIGH PRITCHARD MD Date of Service: 11/13/20 Procedure(s): XR chest routine 2V Accession Number(s): [id number] cc: ED MD FRANCHESKA Fluoro Time In Minutes: XR chest routine 2V INDICATION / CLINICAL INFORMATION: CP/ DYSPNEA COMPARISON: May 24, 2019 FINDINGS: SUPPORT DEVICES: None. HEART / MEDIASTINUM: No significant abnormality. LUNGS / PLEURA: Bilateral patchy parenchymal opacities. Costophrenic sulci are sharp. No pneumothorax. ADDITIONAL FINDINGS: No significant additional findings. IMPRESSION: 1. Bilateral airspace disease concerning for infection. Covid is a consideration. Signer Name: Leobardo Moreno MD Signed: 11/13/2020 5:49 PM Workstation Name: [id number] Transcribed By: Dictated By: Leobardo Moreno MD Electronically Authenticated By: Leobardo Moreno MD Signed Date/Time: 11/13/201748 DD/ 48 Critical Care Time: Yes Critical care time in (mins) excluding proc time.: 35 Critical care attestation.: If time is entered above; I have spent that time in minutes in the direct care of this critically ill patient, excluding procedure time. ED Disposition Clinical Impression: History of HIV or AIDS, Suspected 2019 novel coronavirus infection Pneumonia Qualifiers: Pneumonia type: due to unspecified organism Laterality: bilateral Disposition: -09 OP ADMIT IP TO THIS HOSP Is pt being admited?: Yes Does the pt Need Aspirin: No Condition: Stable
[2020-11-13] MEDS ORDERED: METOCLOPRAMIDE 10 MG/2 ML INJ IV ONE (21:43)
[2020-11-13] MEDS ORDERED: dexAMETHasone 4 MG/ML VIAL IV ONE (21:43)
[2020-11-13] MEDS ORDERED: ACETAMINOPHEN 325 MG TAB PO ONE (21:43)
[2020-11-13] MEDS ORDERED: LACTATED RINGERS 1,000 ML IV ONE (21:48)
[2020-11-13] MEDS ORDERED: ACETAMINOPHEN 325 MG TAB PO PRN (21:58)
[2020-11-13] MEDS ORDERED: ALBUTEROL 2.5 MG/3 ML NEBU IH PRN (21:58)
[2020-11-13] MEDS ORDERED: ONDANSETRON 4 MG/2 ML INJ IV PRN (21:58)
[2020-11-13] MEDS ORDERED: IBUPROFEN 800 MG TAB PO PRN (21:59)
[2020-11-13] MEDS ORDERED: hydrALAZINE 20 MG/1 ML INJ IV PRN (22:00)
--- NOTE | 2020-11-13 22:08 | History and Physical Report ---
History of Present Illness Date of examination: 11/13/20 Date of admission: 11/13/20 Chief complaint: Dyspnea Respiratory distress History of present illness: 35 years old female with past medical history of HIV, congestive heart failure was brought to the hospital because of shortness of breath and coughing , chest tightness, malice, fatigue and headache for last 1 day. No fever. No loss of taste or smell. No vomiting. No dysuria. Positive body aches. Positive chest tightness. No leg pain or leg swelling. Denies travel, surgery, immobilization, DVT and pulmonary embolism risk factors. Please note that this patient had a CTA chest, January 2019, October 2017, both of which were negative for pulmonary embolism. The patient is insistent that she has been staying at home and isolating. She states that she has not gone out at all. She also reports that she lives with family members at home, although she states that "none of them have Covid." In the emergency room patient is found to have suspected COVID-19 infection/pneumonia, chest x-ray showed bilateral airspace disease concerning for infections Covid is a consideration Past History Past Medical History: heart failure, HIV/AIDS Medications and Allergies Allergies Allergy/AdvReac Type Severity Reaction Status Date / Time Penicillins Allergy Swelling Verified 11/13/20 16:58 Home Medications Medication Instructions Recorded Confirmed Last Taken Type Ibuprofen [Motrin] 800 mg PO Q8HR PRN #20 tablet 11/07/17 06/01/18 Unknown Rx Ondansetron [Zofran Odt] 4 mg PO Q8HR PRN #14 tab.rapdis 11/11/17 06/01/18 Unknown Rx medroxyPROGESTERone ACETATE 10 mg PO QDAY #10 tablet 12/02/17 06/01/18 Unknown Rx [Provera] traMADoL [Ultram] 50 mg PO Q8HR PRN #15 tablet 12/02/17 06/01/18 Unknown Rx traMADoL [Ultram 50 MG tab] 50 mg PO Q4HR PRN #14 tablet 01/07/18 06/01/18 Unknown Rx Naproxen 500 mg PO BID PRN #30 tablet 05/24/19 Unknown Rx Active Meds: Active Medications Acetaminophen (Acetaminophen 325 Mg Tab) 650 mg PO Q4H PRN PRN Reason: Pain MILD(1-3)/Fever >100.5/RODRIGUES Albuterol (Albuterol 2.5 Mg/3 Ml Nebu) 2.5 mg IH Q3HRT PRN PRN Reason: Shortness Of Breath Albuterol/Ipratropium (Ipratropium/Albuterol Sulfate 3 Ml Ampul.Neb) 1 ampul IH Q6HRT [facility] Dexamethasone (Dexamethasone 4 Mg/Ml Vial) 6 mg IV DAILY [facility] Famotidine (Famotidine 20 Mg Tab) 20 mg PO BID [facility] Heparin Sodium (Porcine) (Heparin 5,000 Unit/1 Ml Vial) 5,000 unit SUB-Q Q8HR [facility] Hydralazine HCl (Hydralazine 20 Mg/1 Ml Inj) 10 mg IV Q6H PRN PRN Reason: htn Lactated Ringer's (Lactated Ringers) 1,000 mls @ 999 mls/hr IV BOLUS ONE Stop: 11/13/20 22:48 Ibuprofen (Ibuprofen 800 Mg Tab) 800 mg PO Q8HR PRN PRN Reason: Pain, Moderate (4-6) Miscellaneous Medication (Medroxyprogesterone Acetate [Provera]) 10 mg PO QDAY [facility] Ondansetron HCl (Ondansetron 4 Mg/2 Ml Inj) 4 mg IV Q8H PRN PRN Reason: Nausea And Vomiting Sodium Chloride (Sodium Chloride 0.9% 10 Ml Flush Syringe) 10 ml IV BID [facility] Sodium Chloride (Sodium Chloride 0.9% 10 Ml Flush Syringe) 10 ml IV PRN PRN PRN Reason: LINE FLUSH Tramadol HCl (Tramadol 50 Mg Tab) 50 mg PO Q4HR PRN PRN Reason: PAIN Review of Systems Respiratory: cough, shortness of breath, dyspnea on exertion Exam - Constitutional Vitals: Temp Pulse Resp BP Pulse Ox 99.4 F 112 H 18 114/78 97 11/13/20 17:02 11/13/20 17:02 11/13/20 17:02 11/13/20 17:02 11/13/20 17:02 General appearance: Present: no acute distress, well-nourished - EENT Eyes: Present: PERRL ENT: hearing intact, clear oral mucosa - Neck Neck: Present: supple, normal ROM - Respiratory Respiratory effort: normal Respiratory: bilateral: diminished - Cardiovascular Heart Sounds: Present: S1 & S2. Absent: rub, click - Extremities Extremities: pulses symmetrical, No edema Peripheral Pulses: within normal limits - Abdominal General gastrointestinal: Present: soft, non-tender, non-distended, normal bowel sounds Female genitourinary: Present: normal - Integumentary Integumentary: Present: clear, warm, dry - Musculoskeletal Musculoskeletal: gait normal, strength equal bilaterally - Psychiatric Psychiatric: appropriate mood/affect, intact judgment & insight - Neurologic Neurologic: CNII-XII intact, moves all extremities HEART Score - HEART Score Troponin: Troponin T < 0.010 ng/mL (0.00-0.029) 11/13/20 20:08 Results - Labs CBC & Chem 7: 11/13/20 17:23 11/13/20 21:56 Labs: Laboratory Last Values WBC 5.0 K/mm3 (4.5-11.0) 11/13/20 17:23 RBC 3.55 M/mm3 (3.65-5.03) L 11/13/20 17:23 Hgb 9.0 gm/dl (10.1-14.3) L 11/13/20 17:23 Hct 27.4 % (30.3-42.9) L 11/13/20 17:23 MCV 77 fl (79-97) L 11/13/20 17:23 MCH 25 pg (28-32) L 11/13/20 17:23 MCHC 33 % (30-34) 11/13/20 17:23 RDW 14.0 % (13.2-15.2) 11/13/20 17:23 Plt Count 315 K/mm3 (140-440) 11/13/20 17:23 Lymph % (Auto) 25.0 % (13.4-35.0) 11/13/20 17:23 [place] % (Auto) 11.2 % (0.0-7.3) H 11/13/20 17:23 Eos % (Auto) 2.6 % (0.0-4.3) 11/13/20 17:23 Baso % (Auto) 0.4 % (0.0-1.8) 11/13/20 17:23 Lymph # (Auto) 1.2 K/mm3 (1.2-5.4) 11/13/20 17:23 [place] # (Auto) 0.6 K/mm3 (0.0-0.8) 11/13/20 17:23 Eos # (Auto) 0.1 K/mm3 (0.0-0.4) 11/13/20 17:23 Baso # (Auto) 0.0 K/mm3 (0.0-0.1) 11/13/20 17:23 Seg Neutrophils % 60.8 % (40.0-70.0) 11/13/20 17:23 Seg Neutrophils # 3.0 K/mm3 (1.8-7.7) 11/13/20 17:23 PT 14.1 Sec. (12.2-14.9) 11/13/20 17:23 INR 1.11 (0.87-1.13) 11/13/20 17:23 APTT 28.9 Sec. (24.2-36.6) 11/13/20 17:23 Sodium 132 mmol/L (137-145) L 11/13/20 17:23 Potassium 3.9 mmol/L (3.6-5.0) 11/13/20 17:23 Chloride 100.9 mmol/L (98-107) 11/13/20 17:23 Carbon Dioxide 22 mmol/L (22-30) 11/13/20 17:23 Anion Gap 13 mmol/L 11/13/20 17:23 BUN 8 mg/dL (7-17) 11/13/20 17:23 Creatinine 0.7 mg/dL (0.6-1.2) 11/13/20 17:23 Estimated GFR > 60 ml/min 11/13/20 17:23 BUN/Creatinine Ratio 11 % 11/13/20 17:23 Glucose 148 mg/dL (65-100) H 11/13/20 17:23 Calcium 8.8 mg/dL (8.4-10.2) 11/13/20 17:23 Magnesium 1.80 mg/dL (1.7-2.3) 11/13/20 21:26 Total Bilirubin 0.30 mg/dL (0.1-1.2) 11/13/20 17:23 AST 28 units/L (5-40) 11/13/20 17:23 ALT 14 units/L (7-56) 11/13/20 17:23 Alkaline Phosphatase 97 units/L (35-129) 05/24/21 17:23 Total Creatine Kinase < 7 units/L (30-135) L 11/13/20 21:26 Troponin T < 0.010 ng/mL (0.00-0.029) 11/13/20 20:08 NT-Pro-B Natriuret Pep 10.44 pg/mL (0-450) 11/13/20 17:23 Total Protein 9.5 g/dL (6.3-8.2) H 11/13/20 17:23 Albumin 3.6 g/dL (3.9-5) L 11/13/20 17:23 Albumin/Globulin Ratio 0.6 % 11/13/20 17:23 - Imaging and Cardiology Chest x-ray: report reviewed Assessment and Plan VTE prophylaxis?: Chemical Plan of care discussed with patient/family: Yes - Patient Problems (1) Suspected 2019 novel coronavirus infection Current Visit: No Status: Acute Plan to address problem: Admit the patient to the medical floor. Oxygen per nasal cannula 3 to per minute. DuoNeb by nebulizer every 4 hours as needed. Dexamethasone 6 mg IV daily. Levaquin 750 mg IV daily because patient is allergic to penicillin. We will do the blood cultures sputum culture. Will consult infectious disease for evaluation. Follow the Covid inflammatory marker. Follow the Covid PCR test (2) Pneumonia Current Visit: No Status: Acute Qualifiers: Pneumonia type: due to unspecified organism Laterality: bilateral Plan to address problem: Oxygen per nasal cannula 3 to per minute. DuoNeb by nebulizer every 4 hours as needed. Dexamethasone 6 mg IV daily. Levaquin 750 mg IV daily. We will do the blood cultures sputum culture. Will consult infectious disease for evaluation (3) History of HIV or AIDS Current Visit: No Status: Acute Plan to address problem: Is stable. Patient advised to take her HIV medication. Outpatient follow-up with HIV clinic (4) CHF (congestive heart failure) Current Visit: No Status: Acute Plan to address problem: Stable. Continue current management. (5) DVT prophylaxis Current Visit: No Status: Acute Plan to address problem: Heparin 5000 units subcu every 8 hours for DVT prophylaxis. Pepcid 20 mg p.o. twice daily for GI prophylaxis. Patient is a full code
[2020-11-13 22:34] LABS: C-Reactive Protein 3.2 mg/dL (0.00-1.30)
[2020-11-13 22:40] LABS: HCG,Quantitative < 2 mIU/mL (0-4)
[2020-11-13] MEDS: HEPARIN 5,000 UNIT/1 ML VIAL SUB-Q SCH (22:49)
[2020-11-13] MEDS: FAMOTIDINE 20 MG TAB PO SCH (22:49)
[2020-11-14] MEDS: traMADol 50 MG TAB PO PRN ×2 (00:03→19:35)
[2020-11-14] MEDS: IPRATROPIUM/ALBUTEROL SULFATE 3 ML AMPUL.NEB IH SCH ×4 (03:44→20:28)
[2020-11-14] MEDS: HEPARIN 5,000 UNIT/1 ML VIAL SUB-Q SCH ×3 (05:10→21:00)
[2020-11-14 06:23] LABS: Basophils % (Auto) 0.2 % (0.0-1.8); Eosinophils % (Auto) 0.1 % (0.0-4.3); Hematocrit 27.4 % (30.3-42.9); Hemoglobin 9.2 gm/dl (10.1-14.3); Lymphocytes # (Auto) 0.8 K/mm3 (1.2-5.4); Lymphocytes % (Auto) 16.9 % (13.4-35.0); Mean Corpuscular HGB Conc 34 % (30-34); Mean Corpuscular Volume 77 fl (79-97); Monocytes # (Auto) 0.1 K/mm3 (0.0-0.8); Monocytes % (Auto) 2.4 % (0.0-7.3); Platelet Count 302 K/mm3 (140-440); Red Blood Count 3.56 M/mm3 (3.65-5.03); Red Cell Distribution Width 13.8 % (13.2-15.2)
[2020-11-14 06:46] LABS: Blood Urea Nitrogen 13 mg/dL (7-17); Calcium 8.8 mg/dL (8.4-10.2); Hemolysis Index 8
[2020-11-14 06:52] LABS: BUN/Creatinine Ratio 19
--- NOTE | 2020-11-14 09:20 | Progress Note ---
Assessment and Plan Assessment and plan: --PUI /suspected 2019 novel coronavirus infection Current Visit: No Status: Acute Plan to address problem: Isolation, follow lopez PCR test Supportive care --Pneumonia Current Visit: No Status: Acute Oxygen per nasal cannula 3 to per minute. DuoNeb by nebulizer every 4 hours as needed. Dexamethasone 6 mg IV daily. Levaquin 750 mg IV daily. Follow cultures Check procalcitonin --History of HIV or AIDS Current Visit: No Status: Acute Is stable. Resume antiretrovirals outpatient follow-up with HIV clinic --Hyponatremia ; Current Visit: No Status: Acute Closely monitor electrolytes , normal saline if needed --DVT prophylaxis Current Visit: No Status: Acute Heparin 5000 units subcu every 8 hours for DVT prophylaxis. GI prophylaxis ;Pepcid 20 mg p.o. Closely monitor the patient and adjust the management as needed Recommendations noted and appreciated 11/14/2020; PUI, follow lopez PCR test Pneumonia follow cultures, Continue empiric antibiotics Follow ID recommendations History Interval history: I have seen and examined the patient at the bedside this morning Isolation precautions PPE protocols followed Patient complains of mild shortness of breath and cough Afebrile, Alert awake oriented x3 Mild distress Vital signs reviewed Hospitalist Physical - Constitutional Vitals: Temp Pulse Resp BP Pulse Ox 98.8 F 120 H 24 149/99 97 11/14/20 09:11 11/14/20 09:11 11/14/20 09:11 11/14/20 09:11 11/14/20 09:11 General appearance: Present: no acute distress, well-nourished - EENT Eyes: Present: PERRL, EOM intact - Neck Neck: Present: supple, normal ROM - Respiratory Respiratory effort: normal Respiratory: bilateral: diminished, rhonchi, negative: rales, wheezing - Cardiovascular Rhythm: regular Heart Sounds: Present: S1 & S2 - Extremities Extremities: no ischemia, No edema - Abdominal General gastrointestinal: soft, non-tender, non-distended, normal bowel sounds - Integumentary Integumentary: Present: clear, warm - Psychiatric Psychiatric: appropriate mood/affect, cooperative - Neurologic Neurologic: CNII-XII intact, moves all extremities HEART Score - HEART Score Troponin: Troponin T < 0.010 ng/mL (0.00-0.029) 11/13/20 21:56 Results - Labs CBC & Chem 7: 11/14/20 05:49 11/14/20 05:49 Labs: Laboratory Last Values WBC 5.0 K/mm3 (4.5-11.0) 11/14/20 05:49 RBC 3.56 M/mm3 (3.65-5.03) L 11/14/20 05:49 Hgb 9.2 gm/dl (10.1-14.3) L 11/14/20 05:49 Hct 27.4 % (30.3-42.9) L 11/14/20 05:49 MCV 77 fl (79-97) L 11/14/20 05:49 MCH 26 pg (28-32) L 11/14/20 05:49 MCHC 34 % (30-34) 11/14/20 05:49 RDW 13.8 % (13.2-15.2) 11/14/20 05:49 Plt Count 302 K/mm3 (140-440) 11/14/20 05:49 Lymph % (Auto) 16.9 % (13.4-35.0) 11/14/20 05:49 [place]ary % (Auto) 2.4 % (0.0-7.3) 11/14/20 05:49 Eos % (Auto) 0.1 % (0.0-4.3) 11/14/20 05:49 Baso % (Auto) 0.2 % (0.0-1.8) 11/14/20 05:49 Lymph # (Auto) 0.8 K/mm3 (1.2-5.4) L 11/14/20 05:49 [place] # (Auto) 0.1 K/mm3 (0.0-0.8) 11/14/20 05:49 Eos # (Auto) 0.0 K/mm3 (0.0-0.4) 11/14/20 05:49 Baso # (Auto) 0.0 K/mm3 (0.0-0.1) 11/14/20 05:49 Seg Neutrophils % 80.4 % (40.0-70.0) H 11/14/20 05:49 Seg Neutrophils # 4.0 K/mm3 (1.8-7.7) 11/14/20 05:49 PT 14.1 Sec. (12.2-14.9) 11/13/20 17:23 INR 1.11 (0.87-1.13) 11/13/20 17:23 APTT 28.9 Sec. (24.2-36.6) 11/13/20 17:23 D-Dimer 306.57 ng/mlDDU (0-234) H 11/13/20 21:56 Sodium 129 mmol/L (137-145) L 11/14/20 05:49 Potassium 4.5 mmol/L (3.6-5.0) 11/14/20 05:49 Chloride 98.2 mmol/L (98-107) 11/14/20 05:49 Carbon Dioxide 20 mmol/L (22-30) L 11/14/20 05:49 Anion Gap 15 mmol/L 11/14/20 05:49 BUN 13 mg/dL (7-17) 11/14/20 05:49 Creatinine 0.7 mg/dL (0.6-1.2) 11/14/20 05:49 Estimated GFR > 60 ml/min 11/14/20 05:49 BUN/Creatinine Ratio 19 % 11/14/20 05:49 Glucose 232 mg/dL (65-100) H 11/14/20 05:49 Lactic Acid 0.90 mmol/L (0.7-2.0) 11/13/20 21:56 Calcium 8.8 mg/dL (8.4-10.2) 11/14/20 05:49 Magnesium 1.80 mg/dL (1.7-2.3) 11/13/20 21:26 Ferritin 43.9 ng/mL (10.0-200.0) 11/13/20 21:56 Total Bilirubin 0.30 mg/dL (0.1-1.2) 11/13/20 17:23 AST 28 units/L (5-40) 11/13/20 17:23 ALT 14 units/L (7-56) 11/13/20 17:23 Alkaline Phosphatase 97 units/L (35-129) 11/13/20 17:23 Lactate Dehydrogenase 348 units/L (91-180) H 11/13/20 21:56 Total Creatine Kinase < 7 units/L (30-135) L 11/13/20 21:26 Troponin T < 0.010 ng/mL (0.00-0.029) 11/13/20 21:56 C-Reactive Protein 3.20 mg/dL (0.00-1.30) H 11/13/20 21:56 NT-Pro-B Natriuret Pep 9.43 pg/mL (0-450) 11/13/20 21:56 Total Protein 9.5 g/dL (6.3-8.2) H 11/13/20 17:23 Albumin 3.6 g/dL (3.9-5) L 11/13/20 17:23 Albumin/Globulin Ratio 0.6 % 11/13/20 17:23 HCG, Quant < 2 mIU/mL (0-4) 11/13/20 21:56 Microbiology: Microbiology 11/13/20 21:59 Peripheral/Venous Blood Culture - Preliminary Culture in Progress 11/13/20 21:56 Peripheral/Venous Blood Culture - Preliminary Culture in Progress Santiago/IV: Voiding Method Toilet Active Medications - Current Medications Current Medications: Generic Name Dose Route Start Last Admin Trade Name Freq PRN Reason Stop Dose Admin Acetaminophen 650 mg 11/13/20 21:58 Acetaminophen 325 Mg Tab PO Q4H PRN Pain MILD(1-3)/Fever >100.5/RODRIGUES Albuterol 2.5 mg 11/13/20 21:58 Albuterol 2.5 Mg/3 Ml Nebu IH Q3HRT PRN Shortness Of Breath Albuterol/Ipratropium 1 ampul 11/14/20 02:00 11/14/20 08:48 Ipratropium/Albuterol Sulfate 3 Ml Ampul.Neb IH 1 ampul Q6HRT DARYA Administration Dexamethasone 6 mg 11/14/20 10:00 Dexamethasone 4 Mg/Ml Vial IV 11/22/20 10:01 DAILY DARYA Famotidine 20 mg 11/13/20 22:00 11/13/20 22:49 Famotidine 20 Mg Tab PO 20 mg BID DARYA Administration Heparin Sodium (Porcine) 5,000 unit 11/13/20 22:00 11/14/20 05:10 Heparin 5,000 Unit/1 Ml Vial SUB-Q Not Given Q8HR DARYA Hydralazine HCl 10 mg 11/13/20 22:00 Hydralazine 20 Mg/1 Ml Inj IV Q6H PRN htn Levofloxacin/Dextrose 750 mg in 150 mls @ 100 mls/hr 11/14/20 22:00 Levaquin 750mg/150ml IV Q24H DARYA Protocol Ibuprofen 800 mg 11/13/20 21:59 Ibuprofen 800 Mg Tab PO Q8HR PRN Pain, Moderate (4-6) Medroxyprogesterone Acetate 10 mg 11/14/20 10:00 Medroxyprogesterone Acetate 5 Mg Tab PO QDAY [facility] Ondansetron HCl 4 mg 11/13/20 21:58 Ondansetron 4 Mg/2 Ml Inj IV Q8H PRN Nausea And Vomiting Sodium Chloride 10 ml 11/13/20 22:00 11/13/20 23:40 Sodium Chloride 0.9% 10 Ml Flush Syringe IV 10 ml BID DARYA Administration Sodium Chloride 10 ml 11/13/20 21:58 Sodium Chloride 0.9% 10 Ml Flush Syringe IV PRN PRN LINE FLUSH Tramadol HCl 50 mg 11/13/20 21:59 11/14/20 00:03 Tramadol 50 Mg Tab PO 50 mg Q4HR PRN Administration Pain, Moderate (4-6)
[2020-11-14] MEDS: medroxyPROGESTERone ACETATE 5 MG TAB PO SCH (09:31)
[2020-11-14] MEDS ORDERED: dexAMETHasone 4 MG/ML VIAL IV SCH (10:00)
[2020-11-14] MEDS: FAMOTIDINE 20 MG TAB PO SCH ×2 (10:00→21:27)
[2020-11-14] MEDS ORDERED: MEDROXYPROGESTERONE ACETATE 10 MG PO SCH (10:00)
--- NOTE | 2020-11-14 10:41 | Electrocardiograph Report ---
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
--- NOTE | 2020-11-14 10:45 | Electrocardiograph Report ---
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
--- NOTE | 2020-11-14 16:02 | Consultation ---
History of Present Illness - Reason for Consult Consult date: 11/14/20 HIV, pneumonia Requesting physician: SUZANNA ORDAZ - History of Present Illness The patient is a 35-year-old female with HIV, CHF admitted to the hospital with chest tightness, fatigue and shortness of breath of 1 day duration. Upon evaluation in the ER, chest x-ray showed bilateral airspace disease concerning for possible viral pneumonia. She tested negative for COVID-19. Infectious diseases was consulted for additional evaluation. Otherwise afebrile, labs without leukocytosis. Review of Systems: General: no fevers,chills or rigors HEENT: no new visual disturbance Respiratory: Chest tightness, shortness of breath Cardiovascular: No chest pain, syncope Gastrointestinal: No nausea, vomiting or diarrhea Genitourinary: No dysuria or hematuria Musculoskeletal: No new or worsening neck pain or back pain Neurologic: No headaches, seizures Hematologic: No easy bruising or bleeding Endocrine: No night sweats or acute weight loss Skin: negative for rash, jaundice Psychiatric: No suicidal or homicidal ideation Past History Past Medical History: heart failure, HIV/AIDS Medications and Allergies Allergies Allergy/AdvReac Type Severity Reaction Status Date / Time Penicillins Allergy Swelling Verified 11/13/20 16:58 Home Medications Medication Instructions Recorded Confirmed Last Taken Type Ibuprofen [Motrin] 800 mg PO Q8HR PRN #20 tablet 11/07/17 06/01/18 Unknown Rx Ondansetron [Zofran Odt] 4 mg PO Q8HR PRN #14 tab.rapdis 11/11/17 06/01/18 Unknown Rx medroxyPROGESTERone ACETATE 10 mg PO QDAY #10 tablet 12/02/17 06/01/18 Unknown Rx [Provera] traMADoL [Ultram] 50 mg PO Q8HR PRN #15 tablet 12/02/17 06/01/18 Unknown Rx traMADoL [Ultram 50 MG tab] 50 mg PO Q4HR PRN #14 tablet 01/07/18 06/01/18 Unknown Rx Naproxen 500 mg PO BID PRN #30 tablet 05/24/19 Unknown Rx Active Meds: Active Medications Acetaminophen (Acetaminophen 325 Mg Tab) 650 mg PO Q4H PRN PRN Reason: Pain MILD(1-3)/Fever >100.5/RODRIGUES Albuterol (Albuterol 2.5 Mg/3 Ml Nebu) 2.5 mg IH Q3HRT PRN PRN Reason: Shortness Of Breath Albuterol/Ipratropium (Ipratropium/Albuterol Sulfate 3 Ml Ampul.Neb) 1 ampul IH Q6HRT COUNT INCLUDES THE [facility] Last Admin: 11/14/20 14:47 Dose: Not Given Documented by: Dexamethasone (Dexamethasone 4 Mg/Ml Vial) 6 mg IV DAILY COUNT INCLUDES THE [facility] Stop: 11/22/20 10:01 Last Admin: 11/14/20 09:28 Dose: 6 mg Documented by: Famotidine (Famotidine 20 Mg Tab) 20 mg PO BID COUNT INCLUDES THE [facility] Last Admin: 11/14/20 10:00 Dose: 20 mg Documented by: Heparin Sodium (Porcine) (Heparin 5,000 Unit/1 Ml Vial) 5,000 unit SUB-Q Q8HR COUNT INCLUDES THE [facility] Last Admin: 11/14/20 14:15 Dose: 5,000 unit Documented by: Hydralazine HCl (Hydralazine 20 Mg/1 Ml Inj) 10 mg IV Q6H PRN PRN Reason: htn Levofloxacin/Dextrose (Levaquin 750mg/150ml) 750 mg in 150 mls @ 100 mls/hr IV Q24H COUNT INCLUDES THE [facility]; Protocol Ibuprofen (Ibuprofen 800 Mg Tab) 800 mg PO Q8HR PRN PRN Reason: Pain, Moderate (4-6) Last Admin: 11/14/20 09:29 Dose: 800 mg Documented by: Medroxyprogesterone Acetate (Medroxyprogesterone Acetate 5 Mg Tab) 10 mg PO QDAY COUNT INCLUDES THE [facility] Last Admin: 11/14/20 09:31 Dose: 10 mg Documented by: Ondansetron HCl (Ondansetron 4 Mg/2 Ml Inj) 4 mg IV Q8H PRN PRN Reason: Nausea And Vomiting Sodium Chloride (Sodium Chloride 0.9% 10 Ml Flush Syringe) 10 ml IV BID COUNT INCLUDES THE [facility] Last Admin: 11/14/20 10:00 Dose: 10 ml Documented by: Sodium Chloride (Sodium Chloride 0.9% 10 Ml Flush Syringe) 10 ml IV PRN PRN PRN Reason: LINE FLUSH Tramadol HCl (Tramadol 50 Mg Tab) 50 mg PO Q4HR PRN PRN Reason: Pain, Moderate (4-6) Last Admin: 11/14/20 00:03 Dose: 50 mg Documented by: Physical Examination - Physical Exam Narrative exam: Physical Exam: Constitutional: Alert, cooperative. No acute distress Head, Ears, Nose: Normocephalic, atraumatic. External ears, nose normal Eyes: Conjunctivae/corneas clear. No icterus. No ptosis. Neck: Supple, no meningeal signs Cardiovascular: S1, S2 normal. Respiratory: Good air entry, clear to auscultation bilaterally GI: Soft, non-tender; bowel sounds normal. No peritoneal signs Musculoskeletal: No pedal edema, no cyanosis. Skin: No rash or abscess Hem/Lymphatic: No palpable cervical or supraclavicular nodes. No lymphangitis Psych: Mood ok. Affect normal Neurological: Awake, alert, oriented. No gross abnormality - Constitutional Vitals: Vital Signs Temp Pulse Resp BP Pulse Ox 98.8 F 120 H 20 149/99 97 11/14/20 09:11 11/14/20 09:11 11/14/20 09:29 11/14/20 09:11 11/14/20 09:11 Temperature -Last 24 Hours Temperature 98.8 F Temperature 97.9 F Temperature 98.3 F Temperature 99.4 F Results - Labs CBC & Chem 7: 11/14/20 05:49 11/14/20 05:49 Labs: Abnormal lab results 11/13/20 11/13/20 11/13/20 Range/Units 17:23 17:23 21:26 RBC 3.55 L (3.65-5.03) M/mm3 Hgb 9.0 L (10.1-14.3) gm/dl Hct 27.4 L (30.3-42.9) % MCV 77 L (79-97) fl MCH 25 L (28-32) pg [place] % (Auto) 11.2 H (0.0-7.3) % Lymph # (Auto) (1.2-5.4) K/mm3 Seg Neutrophils % (40.0-70.0) % D-Dimer (0-234) ng/mlDDU Sodium 132 L (137-145) mmol/L Carbon Dioxide (22-30) mmol/L Glucose 148 H (65-100) mg/dL Lactate Dehydrogenase (91-180) units/L Total Creatine Kinase < 7 L (30-135) units/L C-Reactive Protein (0.00-1.30) mg/dL Total Protein 9.5 H (6.3-8.2) g/dL Albumin 3.6 L (3.9-5) g/dL 11/13/20 11/13/20 11/14/20 Range/Units 21:56 21:56 05:49 RBC 3.56 L (3.65-5.03) M/mm3 Hgb 9.2 L (10.1-14.3) gm/dl Hct 27.4 L (30.3-42.9) % MCV 77 L (79-97) fl MCH 26 L (28-32) pg [place] % (Auto) (0.0-7.3) % Lymph # (Auto) 0.8 L (1.2-5.4) K/mm3 Seg Neutrophils % 80.4 H (40.0-70.0) % D-Dimer 306.57 H (0-234) ng/mlDDU Sodium (137-145) mmol/L Carbon Dioxide (22-30) mmol/L Glucose (65-100) mg/dL Lactate Dehydrogenase 348 H (91-180) units/L Total Creatine Kinase (30-135) units/L C-Reactive Protein 3.20 H (0.00-1.30) mg/dL Total Protein (6.3-8.2) g/dL Albumin (3.9-5) g/dL 11/14/20 Range/Units 05:49 RBC (3.65-5.03) M/mm3 Hgb (10.1-14.3) gm/dl Hct (30.3-42.9) % MCV (79-97) fl MCH (28-32) pg [place] % (Auto) (0.0-7.3) % Lymph # (Auto) (1.2-5.4) K/mm3 Seg Neutrophils % (40.0-70.0) % D-Dimer (0-234) ng/mlDDU Sodium 129 L (137-145) mmol/L Carbon Dioxide 20 L (22-30) mmol/L Glucose 232 H (65-100) mg/dL Lactate Dehydrogenase (91-180) units/L Total Creatine Kinase (30-135) units/L C-Reactive Protein (0.00-1.30) mg/dL Total Protein (6.3-8.2) g/dL Albumin (3.9-5) g/dL - Imaging and Cardiology Chest x-ray: report reviewed, image reviewed (faint b/l airspace disease) Assessment and Plan Cultures: COVID-19 PCR: Negative Blood culture: In process A/P: 35-year-old female with HIV, CHF admitted to the hospital with chest tightness, fatigue and shortness of breath of 1 day duration: #Bilateral pneumonia: Likely atypical. Procalcitonin is low, COVID-19 PCR is negative. No leukocytosis. #HIV: Well-controlled, patient states she is undetectable for the last 13 years, on Truvada, darunavir and Norvir at home. CD4 count has been high. #Penicillin allergy: Remote, patient does not think it is a true allergy. Recs: empiric Ceftriaxone, azithromycin, may change to p.o. Ceftin, azithromycin upon discharge (total 5 days) Continue antiretrovirals: Truvada, darunavir and Norvir Ashly Lindsay MD, FACP [facility] ([facility] O: [phone] F: [phone]
[2020-11-14] MEDS ORDERED: cefTRIAXone/NS 2 GM/100 ML 2 GM/100 ML BAG IV SCH (17:00)
[2020-11-14] MEDS ORDERED: EMTRICITABINE 200 MG, TENOFOVIR 300 MG PO SCH (17:00)
[2020-11-14] MEDS ORDERED: AZITHROMYCIN/NS 500 MG/250 ML 500 MG/250 ML BAG IV SCH (18:00)
--- NOTE | 2020-11-14 18:05 | Event Note ---
Date: 11/14/20 Moses PCR test is negative, DC isolation Mild elevation D-dimers, in the setting of shortness of breath and hypoxia Evaluate for PE, will check CTA chest to rule out PE Also lower extremity venous Doppler to evaluate for DVT History of HIV; resume antiretrovirals, ID following, will follow with health department Hypoxia, oxygen, titrate O2 sats more than 90% We will monitor the patient and adjust the management as needed Possible discharge in 1 to 2 days if stable
[2020-11-14] MEDS: EMTRICITABINE 200 MG CAP PO SCH (19:36)
[2020-11-14] MEDS: RITONAVIR 100 MG TAB PO SCH (19:36)
[2020-11-14] MEDS: TENOFOVIR 300 MG TAB PO SCH (19:36)
[2020-11-14] MEDS: DARUNAVIR 800 MG TAB PO SCH (19:36)
[2020-11-14] MEDS: SODIUM CHLORIDE 1 GM TAB PO SCH (21:27)
--- NOTE | 2020-11-14 21:55 | Cat Scan Report ---
CTA CHEST WITH CONTRAST INDICATION / CLINICAL INFORMATION: Elevated D-dimers/SOB/evaluate PE. TECHNIQUE: Axial CT images were obtained through the chest after injection of IV contrast. 3 plane MIP and/or 3D reconstructions were produced. All CT scans at this location are performed using CT dose reduction f or ALARA by means of automated exposure control. COMPARISON: Chest radiograph dated 11/13/2020. FINDINGS: PULMONARY ARTERIES: No pulmonary emboli. THORACIC AORTA: No significant abnormality. HEART: No significant abnormality. CORONARY ARTERIES: No significant calcification. MEDIASTINUM / PRINCE: No significant abnormality. PLEURA: No pleural effusion. No pneumothorax. LUNGS: There are patchy groundglass density changes throughout the lungs, predominantly peripherally. This is slightly more consolidative in the lower lobes. ADDITIONAL FINDINGS: There are prominent lymph nodes within the axillae bilaterally. UPPER ABDOMEN: Uncomplicated cholelithiasis. SKELETAL STRUCTURES: No significant osseous abnormality. IMPRESSION: 1. No CT evidence for pulmonary embolism. 2. Diffuse patchy groundglass density changes throughout the lungs, which are slightly more consolida tive in the lower lobes. Findings are concerning for an atypical or viral infectious process. 3. Prominent axillary lymph nodes bilaterally, likely reactive. 4. Uncomplicated cholelithiasis. Signer Name: Rene Lee MD Signed: 11/14/2020 9:51 PM Workstation Name: [id number]
[2020-11-15] MEDS: IPRATROPIUM/ALBUTEROL SULFATE 3 ML AMPUL.NEB IH SCH ×4 (02:32→16:02)
[2020-11-15] MEDS: HEPARIN 5,000 UNIT/1 ML VIAL SUB-Q SCH (05:22)
[2020-11-15 06:00] LABS: BUN/Creatinine Ratio 19; Blood Urea Nitrogen 15 mg/dL (7-17); Calcium 8.8 mg/dL (8.4-10.2); Hemolysis Index 25
[2020-11-15] MEDS ORDERED: AZITHROMYCIN/NS 500 MG/250 ML 500 MG/250 ML BAG IV SCH (09:00)
[2020-11-15] MEDS: RITONAVIR 100 MG TAB PO SCH (09:30)
[2020-11-15] MEDS ORDERED: cefTRIAXone/NS 2 GM/100 ML 2 GM/100 ML BAG IV SCH (09:30)
[2020-11-15] MEDS: EMTRICITABINE 200 MG CAP PO SCH (09:30)
[2020-11-15] MEDS: FAMOTIDINE 20 MG TAB PO SCH (09:31)
[2020-11-15] MEDS: DARUNAVIR 800 MG TAB PO SCH (09:31)
[2020-11-15] MEDS: TENOFOVIR 300 MG TAB PO SCH (09:31)
[2020-11-15] MEDS: medroxyPROGESTERone ACETATE 5 MG TAB PO SCH (11:33)
[2020-11-15] MEDS: SODIUM CHLORIDE 1 GM TAB PO SCH (11:33)
[2020-11-15] MEDS ORDERED: INSULIN LISPRO 100 UNIT/ML SUB-Q SCH (12:18)
--- NOTE | 2020-11-15 12:34 | Discharge Summary ---
Providers - Providers Date of Admission: 11/13/20 21:49 Date of discharge: 11/15/20 Attending physician: ZELALEM TOLBERT 11/13/20 21:43 Consult to Physician [CONS] Urgent Comment: Consulting Provider: SHAYY SOUTH Physician Instructions: Reason For Exam: pna, covid vs other, hiv + Primary care physician: PRACTICE PROFESSIONAL Hospitalization Reason for admission: Worsening shortness of breath/cough Condition: Stable Pertinent studies: Chest x-ray; bilateral airspace disease; CTA chest; no evidence of PE diffuse patchy groundglass density throughout the lungs, atypical or viral infection Hospital course: 35-year-old female patient with past medical history of HIV CHF was admitted through emergency room with worsening shortness of breath and cough, admitted in isolation Moses PCR test is negative, discontinue isolation treated for atypical pneumonia, Elevated D-dimer CTA chest negative for PE ID evaluated the patient recommended empiric antibiotics, Cultures negative Today patient is comfortable no new complaints vital signs stable Physical examination prior to discharge is unremarkable, Stable at discharge Advised to see health department for her HIV needs patient is hemodynamically Patient is hemodynamically and clinically stable at discharge Discharge diagnosis: --PUI /COVID-19 negative - 11/13/2020 DC isolation, Supportive care --Dimitri Pneumonia Empiric antibiotics, ID following improved Cultures negative, --History of HIV or AIDS outpatient follow-up with HIV clinic --Hyponatremia ; Closely monitor electrolytes , normal saline if needed Type 2 diabetes mellitus; Noncompliant with medications Accu-Chek sliding scale coverage ADA diet oral hypoglycemics --DVT prophylaxis Heparin 5000 units subcu every 8 hours for DVT prophylaxis. GI prophylaxis ;Pepcid 20 mg p.o. Stable at discharge Disposition: DC-01 TO HOME OR SELFCARE Final Discharge Diagnosis (Prints w/discharge instructions): COVID-19 test negative. Bilateral pneumonia. Hyponatremia improved. History of HIV AIDS stable. Obesity; BMI 30.1. Type 2 diabetes mellitus. Medical noncompliance Time spent for discharge: 35 min Core Measure Documentation - Palliative Care Palliative Care/ Comfort Measures: Not Applicable - Core Measures Any of the following diagnoses?: none Exam - Constitutional Vitals: Temp Pulse Resp BP Pulse Ox 97.7 F 84 16 126/86 99 11/15/20 05:30 11/15/20 05:30 11/15/20 05:30 11/15/20 05:30 11/15/20 05:30 General appearance: Present: no acute distress, well-nourished - EENT Eyes: Present: PERRL, EOM intact - Neck Neck: Present: supple, normal ROM - Respiratory Respiratory effort: normal Respiratory: bilateral: diminished, negative: rales, rhonchi, wheezing - Cardiovascular Rhythm: regular Heart Sounds: Present: S1 & S2 - Extremities Extremities: no ischemia, pulses intact - Abdominal General gastrointestinal: Present: soft, non-tender, normal bowel sounds - Integumentary Integumentary: Present: clear, warm - Musculoskeletal Musculoskeletal: strength equal bilaterally, generalized weakness - Psychiatric Psychiatric: appropriate mood/affect, cooperative - Neurologic Neurologic: CNII-XII intact, moves all extremities Plan Activity: no restrictions Diet: diabetic Additional Instructions: Advised to see PMD in 3 to 5 days. Advised to see private ID/health department in 1 week. If you have worsening symptoms contact MD or go to emergency room strongly advised to comply with medications diet and follow-up visits check with primary care physician for further evaluation management of your. diabetes. He did not need home oxygen, your resting room air and ambulatory room air O2 sats are more than 93% Follow up with: PRIMARY CARE,MD [Primary Care Provider] - 7 Days
--- NOTE | 2020-11-15 13:23 | Progress Note ---
Assessment and Plan Cultures: COVID-19 PCR: Negative Blood culture: no growth A/P: 35-year-old female with HIV, CHF admitted to the hospital with chest tightness, fatigue and shortness of breath of 1 day duration: #Bilateral pneumonia: Likely atypical, possibly viral. Procalcitonin is low, COVID-19 PCR is negative. No leukocytosis. #HIV: Well-controlled, patient states she is undetectable for the last 13 years, on Truvada, darunavir and Norvir at home. CD4 count has been high. #Penicillin allergy: Remote, patient does not think it is a true allergy. Tolerating Ceftriaxone without issue. Recs: -upon discharge, switch to PO Ceftin 500 mg BID + PO azithromycin x 2 more days -Continue antiretrovirals: Truvada, darunavir and Norvir and follow up with her own HIV provider Ashly Lindsay MD, FACP [facility] ([facility] O: [phone] F: [phone] Subjective Date of service: 11/15/20 Interval history: No fever. Feels the same. Mild headache. Objective - Exam Narrative Exam: Physical Exam: Constitutional: Alert, cooperative. No acute distress Head, Ears, Nose: Normocephalic, atraumatic. External ears, nose normal Eyes: Conjunctivae/corneas clear. No icterus. No ptosis. Neck: Supple, no meningeal signs Cardiovascular: S1, S2 normal. Respiratory: Good air entry, clear to auscultation bilaterally GI: Soft, non-tender; bowel sounds normal. No peritoneal signs Musculoskeletal: No pedal edema, no cyanosis. Skin: No rash or abscess Hem/Lymphatic: No palpable cervical or supraclavicular nodes. No lymphangitis Psych: Mood ok. Affect normal Neurological: Awake, alert, oriented. No gross abnormality - Constitutional Vitals: Vital Signs Temp Pulse Resp BP Pulse Ox 97.7 F 84 16 126/86 99 11/15/20 05:30 11/15/20 05:30 11/15/20 05:30 11/15/20 05:30 11/15/20 05:30 Temperature -Last 24 Hours Temperature 97.7 F Temperature 97.4 F Temperature 98.1 F - Labs CBC & Chem 7: 11/14/20 05:49 11/15/20 05:13 Labs: Abnormal lab results 11/15/20 Range/Units 05:13 Sodium 134 L (137-145) mmol/L Glucose 232 H (65-100) mg/dL
[2020-11-15 13:33] VITALS: BP 113/73
== END 2020-11-15 14:52 | disposition home or self-care (01) ==
LOC: ED 16:55 → 3A 21:49
PROVIDERS: ADMIT Hospitalist; ATTEND Internal Medicine
DX: J18.9 Pneumonia, unspecified organism (principal); Z20.822 Contact with and (suspected) exposure to COVID-19; I50.9 Heart failure, unspecified; E11.9 Type 2 diabetes mellitus without complications; E87.1 Hypo-osmolality and hyponatremia; R00.0 Tachycardia, unspecified; Z90.710 Acquired absence of both cervix and uterus; Z91.19 Patient's noncompliance with other medical treatment and regimen; Z79.899 Other long term (current) drug therapy; Z88.0 Allergy status to penicillin; Z68.30 Body mass index [BMI] 30.0-30.9, adult
CPT/HCPCS: 36415; 71046; 71275; 80048; 80053; 82140; 82550; 82728; 82947; 82962; 83615; 83735; 83880; 84100; 84145; 84484; 84702; 85025; 85379; 85610; 85730; 86140; 87040; 93005; 94640; 96365; 96366; 96367; 96368; 96372; 96375; 96376; 99291; G0378; J0456; J0696; J1100; J1644; J1956; J2765; J7050; Q9967; U0003; J1815

== ENCOUNTER 2020-12-06 13:01 | Inpatient (IN) | payer MEDICAID ==
[2020-12-06] MEDS ORDERED: SODIUM CHLORIDE 0.9% 1000 ML 1,000 ML IV ONE (13:41)
[2020-12-06] MEDS ORDERED: SODIUM CHLORIDE 0.9% 500 ML 500 ML IV ONE (13:44)
[2020-12-06] MEDS ORDERED: cefTRIAXone/NS 2 GM/100 ML 2 GM/100 ML BAG IV ONE (13:44)
--- NOTE | 2020-12-06 14:09 | XRay Report ---
XR chest 1V ap INDICATION / CLINICAL INFORMATION: sob. COMPARISON: CTA from 11/14/2020. FINDINGS: SUPPORT DEVICES: None. HEART /PULMONARY VASCULATURE: No significant abnormality. LUNGS / PLEURA: Bibasilar airspace opacities persists, slightly increased on the right. No sizable pl eural effusion. No pneumothorax. ADDITIONAL FINDINGS: No significant additional findings. IMPRESSION: Persistent bibasilar airspace disease, slightly increased on the right. Signer Name: Rylan Sinclair MD Signed: 12/06/2020 2:05 PM Workstation Name: [id number]
[2020-12-06] MEDS ORDERED: AZITHROMYCIN/NS 500 MG/250 ML 500 MG/250 ML BAG IV ONE (14:11)
--- NOTE | 2020-12-06 14:17 | Emergency Department Report ---
HPI - General Chief Complaint: Dyspnea/Respdistress Time Seen by Provider: 12/06/20 13:27 - HPI HPI: 35-year-old female with history of diabetes mellitus, CHF, and HIV on antiretroviral therapy presents complaining of 3 days of whole body aches, cough, shortness of breath, and chest pain. She reports that the symptoms have been progressive. Her cough is productive of minimal sputum. The body aches are the most distressing symptom that she has had. She says she is supposed to be on home oxygen but was never given oxygen. She has felt progressively more short of breath over the past 3 days. She also has pain in her chest which she described as a tightness. She also states that she had a fever of 104.0 today for which she took ibuprofen. She is not vaccinated against the novel coronavirus. She also endorses generalized abdominal pain over the same period of time. She denies any associated headache, visual change, neck pain, back pain, syncope, palpitations, nausea/vomiting, dysuria, hematuria, or any other complaints. ED Past Medical Hx - Past Medical History Previous Medical History?: Yes Hx Hypertension: No Hx Congestive Heart Failure: Yes Hx Diabetes: No Hx Asthma: No Hx COPD: No Hx HIV: Yes Additional medical history: HIV positive - Surgical History Past Surgical History?: Yes Hx Breast Surgery: Yes (reduction) Additional Surgical History: Mirena, HYSTEROSCOPY. c-sectin x3 - Social History Smoking Status: Never Smoker - Medications Home Medications: Home Medications Medication Instructions Recorded Confirmed Last Taken Type Ibuprofen [Motrin 800 MG tab] 800 mg PO Q8HR PRN #20 tablet 11/07/17 11/15/20 Unknown Rx Ondansetron [Zofran ODT TAB] 4 mg PO Q8HR PRN #14 tab.rapdis 11/11/17 11/15/20 11/11/20 Rx medroxyPROGESTERone ACETATE 10 mg PO QDAY #10 tablet 12/02/17 11/15/20 11/12/20 09:00 Rx [Provera] traMADoL [Ultram 50 MG tab] 50 mg PO Q8HR PRN #15 tablet 12/02/17 11/15/20 11/12/20 Rx Azithromycin [Zithromax TAB] 500 mg PO QDAY #2 tablet 11/15/20 Unknown Rx Famotidine [Pepcid] 20 mg PO BID #30 tablet 11/15/20 Unknown Rx Metformin HCl [metFORMIN ER 500 mg PO DAILY #30 tab.er.24 11/15/20 Unknown Rx Osmotic] cefUROXime [Ceftin] 500 mg PO BID #4 tablet 11/15/20 Unknown Rx ED Review of Systems ROS: Stated complaint: PAIN ALL OVER Other details as noted in HPI Constitutional: fever Eyes: denies: eye pain, vision change ENT: denies: throat pain, congestion Respiratory: cough, shortness of breath Cardiovascular: chest pain. denies: palpitations, syncope Gastrointestinal: abdominal pain. denies: nausea, vomiting Genitourinary: denies: dysuria, frequency Musculoskeletal: myalgia. denies: back pain Skin: denies: rash Neurological: denies: headache, weakness, numbness Physical Exam - Physical Exam Vital Signs: Vital Signs 12/06/20 12/06/20 13:36 13:39 Temperature 98.9 F Pulse Rate 110 H Respiratory 18 22 Rate Blood Pressure 109/65 [Left] O2 Sat by Pulse 94 98 Oximetry Physical Exam: GENERAL: Well developed and well nourished. In mild distress HEENT: Normocephalic. No obvious signs of trauma. Dry mucous membranes EYES: Extraocular movements are intact. Pupils are equal round and reactive to light bilaterally NECK: Supple. Trachea is midline. LUNGS: Tachypneic but without accessory muscle use. Equal chest rise bilaterally. There are diffuse scattered rales and rhonchi throughout the bilateral lung blue. HEART/CARDIOVASCULAR: Tachycardic. No murmurs or rubs. VASCULAR: 2+ peripheral pulses. ABDOMEN: Abdomen is soft and nondistended. There is diffuse tenderness to palpation without guarding or rebound. SKIN: Skin is warm and dry NEURO: Patient is awake, alert, and oriented. hospitality coordinator II-XII grossly intact. No focal deficits. Normal motor and sensory exam throughout. Normal speech. MUSCULOSKELETAL: No obvious deformities. No significant bony tenderness. Normal ROM throughout. ED Course Vital Signs 12/06/20 12/06/20 13:36 13:39 Temperature 98.9 F Pulse Rate 110 H Respiratory 18 22 Rate Blood Pressure 109/65 [Left] O2 Sat by Pulse 94 98 Oximetry ED Medical Decision Making - Lab Data Result diagrams: 12/06/20 14:04 12/06/20 14:04 Lab Results 12/06/20 12/06/20 12/06/20 Range/Units 14:04 14:04 14:04 WBC 5.5 (4.5-11.0) K/mm3 RBC 3.57 L (3.65-5.03) M/mm3 Hgb 8.8 L (10.1-14.3) gm/dl Hct 27.3 L (30.3-42.9) % MCV 76 L (79-97) fl MCH 25 L (28-32) pg MCHC 32 (30-34) % RDW 14.0 (13.2-15.2) % Plt Count 340 (140-440) K/mm3 Lymph % (Auto) 26.6 (13.4-35.0) % [place] % (Auto) 8.5 H (0.0-7.3) % Eos % (Auto) 0.5 (0.0-4.3) % Baso % (Auto) 0.2 (0.0-1.8) % Lymph # (Auto) 1.5 (1.2-5.4) K/mm3 [place] # (Auto) 0.5 (0.0-0.8) K/mm3 Eos # (Auto) 0.0 (0.0-0.4) K/mm3 Baso # (Auto) 0.0 (0.0-0.1) K/mm3 Seg Neutrophils % 64.2 (40.0-70.0) % Seg Neutrophils # 3.5 (1.8-7.7) K/mm3 D-Dimer (0-234) ng/mlDDU Sodium 136 L (137-145) mmol/L Potassium 4.5 (3.6-5.0) mmol/L Chloride 103.0 (98-107) mmol/L Carbon Dioxide 22 (22-30) mmol/L Anion Gap 16 mmol/L BUN 15 (7-17) mg/dL Creatinine 0.9 (0.6-1.2) mg/dL Estimated GFR > 60 ml/min BUN/Creatinine Ratio 17 % Glucose 149 H (65-100) mg/dL Lactic Acid 0.80 (0.7-2.0) mmol/L Calcium 8.8 (8.4-10.2) mg/dL Total Bilirubin 0.40 (0.1-1.2) mg/dL AST 32 (5-40) units/L ALT 8 (7-56) units/L Alkaline Phosphatase 89 (35-129) units/L Troponin T < 0.010 (0.00-0.029) ng/mL NT-Pro-B Natriuret Pep (0-450) pg/mL Total Protein 8.6 H (6.3-8.2) g/dL Albumin 2.9 L (3.9-5) g/dL Albumin/Globulin Ratio 0.5 % HCG, Qual (Negative) 12/06/20 12/06/20 12/06/20 Range/Units 14:04 14:04 15:24 WBC (4.5-11.0) K/mm3 RBC (3.65-5.03) M/mm3 Hgb (10.1-14.3) gm/dl Hct (30.3-42.9) % MCV (79-97) fl MCH (28-32) pg MCHC (30-34) % RDW (13.2-15.2) % Plt Count (140-440) K/mm3 Lymph % (Auto) (13.4-35.0) % [place] % (Auto) (0.0-7.3) % Eos % (Auto) (0.0-4.3) % Baso % (Auto) (0.0-1.8) % Lymph # (Auto) (1.2-5.4) K/mm3 [place] # (Auto) (0.0-0.8) K/mm3 Eos # (Auto) (0.0-0.4) K/mm3 Baso # (Auto) (0.0-0.1) K/mm3 Seg Neutrophils % (40.0-70.0) % Seg Neutrophils # (1.8-7.7) K/mm3 D-Dimer 185.58 (0-234) ng/mlDDU Sodium (137-145) mmol/L Potassium (3.6-5.0) mmol/L Chloride (98-107) mmol/L Carbon Dioxide (22-30) mmol/L Anion Gap mmol/L BUN (7-17) mg/dL Creatinine (0.6-1.2) mg/dL Estimated GFR ml/min BUN/Creatinine Ratio % Glucose (65-100) mg/dL Lactic Acid (0.7-2.0) mmol/L Calcium (8.4-10.2) mg/dL Total Bilirubin (0.1-1.2) mg/dL AST (5-40) units/L ALT (7-56) units/L Alkaline Phosphatase (35-129) units/L Troponin T (0.00-0.029) ng/mL NT-Pro-B Natriuret Pep 42.20 (0-450) pg/mL Total Protein (6.3-8.2) g/dL Albumin (3.9-5) g/dL Albumin/Globulin Ratio % HCG, Qual Negative (Negative) - Radiology Data XR chest 1V ap INDICATION / CLINICAL INFORMATION: sob. COMPARISON: CTA from 11/14/2020. FINDINGS: SUPPORT DEVICES: None. HEART /PULMONARY VASCULATURE: No significant abnormality. LUNGS / PLEURA: Bibasilar airspace opacities persists, slightly increased on the right. No sizable pleural effusion. No pneumothorax. ADDITIONAL FINDINGS: No significant additional findings. IMPRESSION: Persistent bibasilar airspace disease, slightly increased on the right. Signer Name: Rylan Sinclair MD Signed: 12/06/2020 1:05 PM Workstation Name: [id number] - Medical Decision Making 35-year-old female with complex medical history including diabetes mellitus, CHF, and HIV on antiretroviral therapy presenting with 3 days of body aches, cough, shortness of breath, chest pain, and fever. Also reports abdominal pain as well. She is afebrile here but says she had a fever of 104.0 prior to arrival. She is mildly tachycardic in the 110s. She has an elevated respiratory rate. Her oxygen saturation was initially 93% on room air but while I was speaking with her I watched her oxygen saturation dropped to 87%. Her oxygen saturation is normal on 2 L via nasal cannula. On physical exam, she has dry mucous membranes. She has 1+ pitting edema of the bilateral lower extremities. Lung auscultation reveals diffuse scattered rales and rhonchi throughout. She has diffuse abdominal tenderness without guarding or rebound. Given the reported history of fever, sepsis order set was initiated with full set of labs and cultures as well as chest x-ray. We will also obtain CT of the abdomen and pelvis given tenderness on exam. We will start with 500 cc of IV fluids given her CHF. We will give IV ceftriaxone and azithromycin and monitor closely. Chest x-ray shows bibasilar airspace opacities similar to prior x-ray last month but with slightly increased findings on the right. This is most consistent with pneumonia. At 3:20 PM, labs have partially returned and reveal normal white blood cell count, anemia with a hemoglobin of 8.8 from her baseline of 9.0. Troponin is negative. BNP is not elevated at 42.2. Therefore I have low suspicion for CHF exacerbation. Given that the patient's CXR is not significantly changed from the prior x-ray showing her pneumonia which was treated with antibiotics in ad dition to the fact that the patient is now requiring supplemental oxygen, I have ordered a CTA of the chest in addition to CT of the abdomen to assess for evidence of PE. I have also ordered the COVID-19 order set. I spoke with Dr. Oshea who accepts the patient for admission and will assume care. I have signed out the patient and the pending CTA of the chest as well as CT of the abdomen to the oncoming ER doctor, Dr. Addison who will follow up the result. CTA shows worsened bilateral groundglass opacities without evidence of CT. CT abd/pelvis shows no acute findings to explain patient's symptoms. Critical care attestation.: If time is entered above; I have spent that time in minutes in the direct care of this critically ill patient, excluding procedure time. ED Disposition Clinical Impression: History of HIV or AIDS Sepsis with acute hypoxic respiratory failure Qualifiers: Severe sepsis shock status: unspecified Disposition: OP ADMIT IP TO THIS HOSP Is pt being admited?: Yes Condition: Stable
[2020-12-06 14:22] LABS: Basophils % (Auto) 0.2 % (0.0-1.8); Eosinophils % (Auto) 0.5 % (0.0-4.3); Hematocrit 27.3 % (30.3-42.9); Hemoglobin 8.8 gm/dl (10.1-14.3); Lymphocytes # (Auto) 1.5 K/mm3 (1.2-5.4); Lymphocytes % (Auto) 26.6 % (13.4-35.0); Mean Corpuscular HGB Conc 32 % (30-34); Mean Corpuscular Volume 76 fl (79-97); Monocytes # (Auto) 0.5 K/mm3 (0.0-0.8); Monocytes % (Auto) 8.5 % (0.0-7.3); Platelet Count 340 K/mm3 (140-440); Red Blood Count 3.57 M/mm3 (3.65-5.03)
[2020-12-06] MEDS ORDERED: SODIUM CHLORIDE 0.9% 1000 ML 1,000 ML ONE (14:59)
[2020-12-06 15:25] LABS: Alanine Aminotransferase 8 units/L (7-56); Albumin 2.9 g/dL (3.9-5); BUN/Creatinine Ratio 17; Blood Urea Nitrogen 15 mg/dL (7-17); Calcium 8.8 mg/dL (8.4-10.2); Hemolysis Index 10
[2020-12-06 16:12] LABS: C-Reactive Protein 7.1 mg/dL (0.00-1.30)
--- NOTE | 2020-12-06 16:30 | Cat Scan Report ---
CTA CHEST WITH CONTRAST INDICATION / CLINICAL INFORMATION: SOb, tachycardia x3days [id number] 100ml. TECHNIQUE: Axial CT images were obtained through the chest after injection of 100 mL Omni 350 IV contrast. 3 jacob ne MIP and/or 3D reconstructions were produced. All CT scans at this location are performed using CT dose reduction for ALARA by means of automated exposure control. COMPARISON: CTA chest 11/14/2020 FINDINGS: PULMONARY ARTERIES: No pulmonary emboli. THORACIC AORTA: No significant abnormality. HEART: No significant abnormality. CORONARY ARTERIES: No significant calcification. MEDIASTINUM / PRINCE: No significant abnormality. PLEURA: No pleural effusion. No pneumothorax. LUNGS: Interval worsening of diffuse groundglass opacities throughout bilateral lung blue. ADDITIONAL FINDINGS: Reactive appearing lymph nodes in the bilateral axillary region are similar to p rior exam. UPPER ABDOMEN: No acute findings. Persistent calcified cholelithiasis without acute cholecystitis. SKELETAL STRUCTURES: No significant osseous abnormality. No aggressive osseous lesions. IMPRESSION: 1. No CT evidence for pulmonary embolism. 2. Interval worsening of diffuse groundglass opacities throughout bilateral lung blue when compared to 11/14/2020. Concerning for worsened atypical versus viral infectious process. Signer Name: Joselo Gordon MD Signed: 12/06/2020 4:25 PM Workstation Name: [id number]
--- NOTE | 2020-12-06 16:47 | Cat Scan Report ---
CT ABDOMEN AND PELVIS WITH CONTRAST INDICATION / CLINICAL INFORMATION: abdominal tenderness x3days [id number] 100ml. TECHNIQUE: Axial CT images were obtained through the abdomen and pelvis after 100 mL Omni [address] scans at this location are performed using CT dose reduction for ALARA by means of automated expos ure control. COMPARISON: 11/11/2017 FINDINGS: LOWER CHEST: Persistent groundglass opacities throughout the visualized portion of bilateral lower lo bes. Please see dedicated CTA chest for further detail. LIVER: No significant abnormality. GALLBLADDER: Persistent calcified cholelithiasis without acute cholecystitis BILE DUCTS: No significant abnormality. PANCREAS: No significant abnormality. SPLEEN: No significant abnormality. ADRENALS: No significant abnormality. RIGHT KIDNEY / URETER: No significant abnormality. LEFT KIDNEY / URETER: No significant abnormality. STOMACH / SMALL BOWEL: Mural thickening noted of the gastric wall. No significant abnormality of the small bowel. No mechanical bowel obstruction. COLON: No significant abnormality. APPENDIX: No significant abnormality. PERITONEUM: No free fluid. No free air. No fluid collection. LYMPH NODES: No significant adenopathy. AORTA / ARTERIES: No significant abnormality. IVC / VEINS: No significant abnormality. URINARY BLADDER: No significant abnormality. REPRODUCTIVE ORGANS: Physiologic changes are noted of the uterus and bilateral ovaries. There is a 5. 2 cm simple left ovarian cyst. ADDITIONAL FINDINGS: None. SKELETAL SYSTEM: No significant abnormality. No aggressive osseous lesions. IMPRESSION: 1. Worsened groundglass opacities throughout the visualized portion of the bilateral lower lobes. Thi s likely represents worsened atypical versus viral infectious process. Please see dedicated CTA chest for further detail. 2. Persistent cholelithiasis without acute cholecystitis. 3. Mural thickening of the gastric wall may be secondary to incomplete distention versus mild gastrit is. 4. 5.2 cm simple left ovarian cyst is likely physiologic. However, given its size 3 month pelvic ultr asound follow-up to document resolution is recommended. Signer Name: Joselo Gordon MD Signed: 12/06/2020 4:42 PM Workstation Name: [id number]
[2020-12-06] MEDS ORDERED: traMADol 50 MG TAB PO PRN (21:21)
[2020-12-06] MEDS ORDERED: ONDANSETRON 4 MG ODT TAB PO PRN (21:21)
--- NOTE | 2020-12-06 21:21 | History and Physical Report ---
History of Present Illness Date of examination: 12/06/20 Date of admission: 12/06/20 15:31 Chief complaint: Shortness of breath and cough for 1 week History of present illness: 35-year-old female with history of HIV, type 2 diabetes and CHF comes in for 1 week of body aches cough and shortness of breath and low-grade fever. Cough is productive of mucoid sputum. Body aches are the most distressing symptom that she had. Patient is a poor historian.. Patient denies getting vaccination for coronavirus. Generalized abdominal pain. Shortness of breath present. Generalized malaise present. - Past Medical History Previous Medical History?: Yes --Congestive Heart Failure: Yes --HIV: Yes --Type 2 diabetes - Surgical History Past Surgical History?: Yes --Breast Surgery: Yes (reduction) --Additional Surgical History: Mirena, HYSTEROSCOPY. c-sectin x3 - Social History Smoking Status: Never Smoker - Medications Home Medications: Home Medications Medication Instructions Recorded Confirmed Last Taken Type Ibuprofen [Motrin 800 MG tab] 800 mg PO Q8HR PRN #20 tablet 11/07/17 11/15/20 Unknown Rx Ondansetron [Zofran ODT TAB] 4 mg PO Q8HR PRN #14 tab.rapdis 11/11/17 11/15/20 11/11/20 Rx medroxyPROGESTERone ACETATE 10 mg PO QDAY #10 tablet 12/02/17 11/15/20 11/12/20 09:00 Rx [Provera] traMADoL [Ultram 50 MG tab] 50 mg PO Q8HR PRN #15 tablet 12/02/17 11/15/20 11/12/20 Rx Azithromycin [Zithromax TAB] 500 mg PO QDAY #2 tablet 11/15/20 Unknown Rx Famotidine [Pepcid] 20 mg PO BID #30 tablet 11/15/20 Unknown Rx Metformin HCl [metFORMIN ER 500 mg PO DAILY #30 tab.er.24 11/15/20 Unknown Rx Osmotic] cefUROXime [Ceftin] 500 mg PO BID #4 tablet 11/15/20 Unknown Rx Review of Systems ROS: Stated complaint: PAIN ALL OVER Other details as noted in HPI Constitutional: fever Eyes: denies: eye pain, vision change ENT: denies: throat pain, congestion Respiratory: cough, shortness of breath Cardiovascular: chest pain. denies: palpitations, syncope Gastrointestinal: abdominal pain. denies: nausea, vomiting Genitourinary: denies: dysuria, frequency Musculoskeletal: myalgia. denies: back pain Skin: denies: rash Neurological: denies: headache, weakness, numbness Medications and Allergies Allergies Allergy/AdvReac Type Severity Reaction Status Date / Time Penicillins Allergy Swelling Verified 11/13/20 16:58 Home Medications Medication Instructions Recorded Confirmed Last Taken Type Ibuprofen [Motrin 800 MG tab] 800 mg PO Q8HR PRN #20 tablet 11/07/17 11/15/20 Unknown Rx Ondansetron [Zofran ODT TAB] 4 mg PO Q8HR PRN #14 tab.rapdis 11/11/17 11/15/20 11/11/20 Rx medroxyPROGESTERone ACETATE 10 mg PO QDAY #10 tablet 12/02/17 11/15/20 11/12/20 09:00 Rx [Provera] traMADoL [Ultram 50 MG tab] 50 mg PO Q8HR PRN #15 tablet 12/02/17 11/15/20 Rx Azithromycin [Zithromax TAB] 500 mg PO QDAY #2 tablet 11/15/20 Unknown Rx Famotidine [Pepcid] 20 mg PO BID #30 tablet 11/15/20 Unknown Rx Metformin HCl [metFORMIN ER 500 mg PO DAILY #30 tab.er.24 11/15/20 Unknown Rx Osmotic] cefUROXime [Ceftin] 500 mg PO BID #4 tablet 11/15/20 Unknown Rx Exam - Constitutional Vitals: Temp Pulse Resp BP Pulse Ox 98.9 F 84 16 116/70 100 12/06/20 13:39 12/06/20 17:43 12/06/20 17:43 12/06/20 17:43 12/06/20 20:47 General appearance: Present: mild distress, well-nourished - EENT Eyes: Present: PERRL ENT: hearing intact, clear oral mucosa - Neck Neck: Present: supple, normal ROM - Respiratory Respiratory effort: normal Respiratory: bilateral: CTA, rhonchi, wheezing - Cardiovascular Heart rate: 88 Rhythm: regular Heart Sounds: Present: S1 & S2. Absent: rub, click - Extremities Extremities: pulses symmetrical, No edema Peripheral Pulses: within normal limits - Abdominal General gastrointestinal: Present: soft, non-tender, non-distended, normal bowel sounds Female genitourinary: Present: normal - Integumentary Integumentary: Present: clear, warm, dry - Musculoskeletal Musculoskeletal: gait normal, strength equal bilaterally - Psychiatric Psychiatric: appropriate mood/affect, intact judgment & insight - Neurologic Neurologic: CNII-XII intact, moves all extremities HEART Score - HEART Score Troponin: Troponin T < 0.010 ng/mL (0.00-0.029) 12/06/20 14:04 Results - Labs CBC & Chem 7: 12/07/20 02:12 12/07/20 02:12 Labs: Laboratory Last Values WBC 5.5 K/mm3 (4.5-11.0) 12/06/20 14:04 RBC 3.57 M/mm3 (3.65-5.03) L 12/06/20 14:04 Hgb 8.8 gm/dl (10.1-14.3) L 12/06/20 14:04 Hct 27.3 % (30.3-42.9) L 12/06/20 14:04 MCV 76 fl (79-97) L 12/06/20 14:04 MCH 25 pg (28-32) L 12/06/20 14:04 MCHC 32 % (30-34) 12/06/20 14:04 RDW 14.0 % (13.2-15.2) 12/06/20 14:04 Plt Count 340 K/mm3 (140-440) 12/06/20 14:04 Lymph % (Auto) 26.6 % (13.4-35.0) 12/06/20 14:04 [place] % (Auto) 8.5 % (0.0-7.3) H 12/06/20 14:04 Eos % (Auto) 0.5 % (0.0-4.3) 12/06/20 14:04 Baso % (Auto) 0.2 % (0.0-1.8) 12/06/20 14:04 Lymph # (Auto) 1.5 K/mm3 (1.2-5.4) 12/06/20 14:04 [place] # (Auto) 0.5 K/mm3 (0.0-0.8) 12/06/20 14:04 Eos # (Auto) 0.0 K/mm3 (0.0-0.4) 12/06/20 14:04 Baso # (Auto) 0.0 K/mm3 (0.0-0.1) 12/06/20 14:04 Seg Neutrophils % 64.2 % (40.0-70.0) 12/06/20 14:04 Seg Neutrophils # 3.5 K/mm3 (1.8-7.7) 12/06/20 14:04 D-Dimer 185.58 ng/mlDDU (0-234) 12/06/20 15:24 Sodium 136 mmol/L (137-145) L 12/06/20 14:04 Potassium 4.5 mmol/L (3.6-5.0) 12/06/20 14:04 Chloride 103.0 mmol/L (98-107) 12/06/20 14:04 Carbon Dioxide 22 mmol/L (22-30) 12/06/20 14:04 Anion Gap 16 mmol/L 12/06/20 14:04 BUN 15 mg/dL (7-17) 12/06/20 14:04 Creatinine 0.9 mg/dL (0.6-1.2) 12/06/20 14:04 Estimated GFR > 60 ml/min 12/06/20 14:04 BUN/Creatinine Ratio 17 % 12/06/20 14:04 Glucose 149 mg/dL (65-100) H 12/06/20 14:04 Lactic Acid 0.80 mmol/L (0.7-2.0) 12/06/20 14:04 Calcium 8.8 mg/dL (8.4-10.2) 12/06/20 14:04 Ferritin 40.7 ng/mL (10.0-200.0) 12/06/20 15:24 Total Bilirubin 0.40 mg/dL (0.1-1.2) 12/06/20 14:04 AST 32 units/L (5-40) 12/06/20 14:04 ALT 8 units/L (7-56) 12/06/20 14:04 Alkaline Phosphatase 89 units/L (35-129) 12/06/20 14:04 Lactate Dehydrogenase 418 units/L (91-180) H 12/06/20 15:24 Troponin T < 0.010 ng/mL (0.00-0.029) 12/06/20 14:04 C-Reactive Protein 7.10 mg/dL (0.00-1.30) H 12/06/20 15:24 NT-Pro-B Natriuret Pep 42.20 pg/mL (0-450) 12/06/20 14:04 Total Protein 8.6 g/dL (6.3-8.2) H 12/06/20 14:04 Albumin 2.9 g/dL (3.9-5) L 12/06/20 14:04 Albumin/Globulin Ratio 0.5 % 12/06/20 14:04 HCG, Qual Negative (Negative) 12/06/20 14:04 Short CBC 12/06/20 12/07/20 Range/Units 14:04 02:12 WBC 5.5 4.6 (4.5-11.0) K/mm3 Hgb 8.8 L 9.2 L (10.1-14.3) gm/dl Hct 27.3 L 27.8 L (30.3-42.9) % Plt Count 340 378 (140-440) K/mm3 BMP 12/06/20 12/07/20 14:04 02:12 Sodium 136 L 137 Potassium 4.5 4.4 Chloride 103.0 100.6 Carbon Dioxide 22 24 BUN 15 12 Creatinine 0.9 0.7 Glucose 149 H 123 H Calcium 8.8 8.3 L Cardiac Enzymes 12/06/20 Range/Units 14:04 Troponin T < 0.010 (0.00-0.029) ng/mL Liver Function 12/06/20 12/07/20 Range/Units 14:04 02:12 Total Bilirubin 0.40 0.40 (0.1-1.2) mg/dL AST 32 26 (5-40) units/L ALT 8 9 (7-56) units/L Alkaline Phosphatase 89 94 (35-129) units/L Albumin 2.9 L 3.2 L (3.9-5) g/dL Microbiology: Microbiology 12/06/20 14:04 Peripheral/Venous Blood Culture - Preliminary Culture in Progress 12/06/20 14:04 Peripheral/Venous Blood Culture - Preliminary Culture in Progress - Imaging and Cardiology Chest x-ray: report reviewed CT scan - chest: report reviewed Imaging and Cardiology: Chest x-ray Persistent bibasilar airspace disease slightly increased on the right CT abdomen Worsened groundglass opacities throughout the visualized portion of the bilateral lower lobes. This likely represents worsened atypical versus viral infectious process. Persistent cholelithiasis without acute cholecystitis Mural thickening of the gastric wall may be secondary to incomplete distention versus mild gastritis 5.2 cm simple left ovarian cyst is likely physiologic. However given its size 3- month pelvic ultrasound follow-up to document resolution is recommended. Chest CTA No CT evidence for pulmonary embolism Interval worsening of diffuse groundglass opacities throughout bilateral lung blue when compared to 11-14-2020. Concerning for worsened atypical versus viral infectious process. Assessment and Plan Advance Directives: Yes (Full code) VTE prophylaxis?: Chemical Plan of care discussed with patient/family: Yes - Patient Problems (1) Sepsis with acute hypoxic respiratory failure Current Visit: Yes Status: Acute Qualifiers: Severe sepsis shock status: unspecified Plan to address problem: Supplemental oxygen and keep the oxygen saturations above 92 Possible Covid pneumonia Treat for bilateral pneumonia and Covid pneumonia (2) Bilateral pneumonia Current Visit: Yes Status: Acute Plan to address problem: Treated as community-acquired pneumonia Coronavirus PCR requested IV Decadron initiated ID consult requested (3) CHF (congestive heart failure) Current Visit: No Status: Chronic Qualifiers: Heart failure type: combined systolic and diastolic Plan to address problem: Cardiogram for ejection fraction IV Lasix 40 mg every 24 (4) Person under investigation for COVID-19 Current Visit: Yes Status: Acute Plan to address problem: Coronavirus PCR requested IV Decadron initiated Zinc vitamin C and vitamin D initiated (5) HIV (human immunodeficiency virus infection) Current Visit: Yes Status: Chronic Qualifiers: HIV symptom status: asymptomatic, with no history of HIV-related illness Qualified Code(s): Z21 - Asymptomatic human immunodeficiency virus [HIV] infection status Plan to address problem: Patient on Zithromax (6) T2DM (type 2 diabetes mellitus) Current Visit: Yes Status: Chronic Qualifiers: Diabetes mellitus 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 insulin use: unspecified 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 insulin use status Plan to address problem: Check hemoglobin A1c Accu-Cheks AC at bedtime Coverage as per moderate dose sliding scale Continue Metformin (7) DVT prophylaxis Current Visit: Yes Status: Acute Plan to address problem: On Lovenox and GI prophylaxis (8) Anemia Current Visit: Yes Status: Chronic Qualifiers: Anemia type: iron deficiency Plan to address problem: Probable iron deficiency anemia: Check iron levels B12 and folic acid (9) DVT prophylaxis Current Visit: No Status: Acute Plan to address problem: Lovenox and GI prophylaxis
[2020-12-06] MEDS ORDERED: AZITHROMYCIN 250 MG TAB PO SCH (21:30)
[2020-12-06] MEDS ORDERED: HYDROmorphone 1 MG/1 ML INJ IV PRN (21:36)
[2020-12-06] MEDS ORDERED: ACETAMINOPHEN 325 MG TAB PO PRN (21:36)
[2020-12-06] MEDS: ASCORBIC ACID 500 MG TAB PO SCH (22:59)
[2020-12-06] MEDS: FAMOTIDINE 20 MG TAB PO SCH (23:00)
[2020-12-06] MEDS: dexAMETHasone 4 MG/ML VIAL IV SCH (23:00)
[2020-12-06] MEDS: ZINC SULFATE 220 MG CAP PO SCH (23:00)
[2020-12-06] MEDS: ENOXAPARIN 40 MG/0.4 ML INJ SUB-Q SCH (23:01)
[2020-12-06] MEDS: oxyCODONE /ACETAMINOPHEN 5-325MG TAB PO PRN (23:19)
[2020-12-06] MEDS: metFORMIN XR 500MG TAB PO SCH (23:20)
[2020-12-06] MEDS: CHOLECALCIFEROL (VIT D3) 5,000 UNIT TAB PO SCH (23:20)
[2020-12-07] MEDS: ENOXAPARIN 40 MG/0.4 ML INJ SUB-Q SCH ×2 (00:03→22:34)
[2020-12-07] MEDS: guaiFENesin 100 MG/5 ML ORAL LIQD PO PRN (00:42)
[2020-12-07] MEDS: IPRATROPIUM/ALBUTEROL SULFATE 3 ML AMPUL.NEB IH SCH ×5 (02:20→20:52)
[2020-12-07 02:41] LABS: Basophils % (Auto) 0.6 % (0.0-1.8); Eosinophils # (Auto) 0.1 K/mm3 (0.0-0.4); Eosinophils % (Auto) 1.4 % (0.0-4.3); Hematocrit 27.8 % (30.3-42.9); Hemoglobin 9.2 gm/dl (10.1-14.3); Lymphocytes # (Auto) 1.4 K/mm3 (1.2-5.4); Lymphocytes % (Auto) 30.9 % (13.4-35.0); Mean Corpuscular HGB Conc 33 % (30-34); Mean Corpuscular Volume 77 fl (79-97); Monocytes # (Auto) 0.4 K/mm3 (0.0-0.8); Monocytes % (Auto) 9.4 % (0.0-7.3); Platelet Count 378 K/mm3 (140-440); Red Blood Count 3.61 M/mm3 (3.65-5.03); Red Cell Distribution Width 14.1 % (13.2-15.2)
[2020-12-07 02:57] LABS: Alanine Aminotransferase 9 units/L (7-56); Albumin 3.2 g/dL (3.9-5); Blood Urea Nitrogen 12 mg/dL (7-17); Calcium 8.3 mg/dL (8.4-10.2); Hemolysis Index 0
[2020-12-07 03:01] LABS: BUN/Creatinine Ratio 17
[2020-12-07 08:18] LABS: % Iron Saturation 6.45 %
--- NOTE | 2020-12-07 08:26 | Progress Note ---
Assessment and Plan Assessment and plan: (1) Sepsis with acute hypoxic respiratory failure Current Visit: Yes Status: Acute Qualifiers: Severe sepsis shock status: unspecified Plan to address problem: Supplemental oxygen and keep the oxygen saturations above 92 Possible Covid pneumonia Treat for bilateral pneumonia and Covid pneumonia (2) Bilateral pneumonia Current Visit: Yes Status: Acute Plan to address problem: Treated as community-acquired pneumonia Coronavirus PCR requested IV Decadron initiated ID consult requested (3) CHF (congestive heart failure) Current Visit: No Status: Chronic Qualifiers: Heart failure type: combined systolic and diastolic Plan to address problem: Cardiogram for ejection fraction IV Lasix 40 mg every 24 (4) Person under investigation for COVID-19 Current Visit: Yes Status: Acute Plan to address problem: Coronavirus PCR requested IV Decadron initiated Zinc vitamin C and vitamin D initiated (5) HIV (human immunodeficiency virus infection) Current Visit: Yes Status: Chronic Qualifiers: HIV symptom status: asymptomatic, with no history of HIV-related illness Qualified Code(s): Z21 - Asymptomatic human immunodeficiency virus [HIV] inf ection status Plan to address problem: Patient on Zithromax (6) T2DM (type 2 diabetes mellitus) Current Visit: Yes Status: Chronic Qualifiers: 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 use: unspecified intermodal customer service insulin use status Plan to address problem: Check hemoglobin A1c Accu-Cheks AC at bedtime Coverage as per moderate dose sliding scale Continue Metformin (7) DVT prophylaxis Current Visit: Yes Status: Acute Plan to address problem: On Lovenox and GI prophylaxis (8) Anemia Current Visit: Yes Status: Chronic Qualifiers: Anemia type: iron deficiency Plan to address problem: Probable iron deficiency anemia: Check iron levels B12 and folic acid (9) DVT prophylaxis Current Visit: No Status: Acute Plan to address problem: Lovenox and GI prophylaxis 12/07/2020 -COVID-19 test is pending -Continue with IV antibiotics for now, follow procalcitonin level -ID consulted. -Patient's hemoglobin A1c is 8.2 -HIV; patient will follow with ID History Interval history: Patient was seen and evaluated this morning Patient states still short shortness of breath Hospitalist Physical - Physical exam Narrative exam: Not in cardiopulmonary distress. The patient appeared well nourished and normally developed. Vital signs as documented. Head exam is unremarkable. No scleral icterus . Neck is without jugular venous distension, thyromegaly, or carotid bruits. Lungs are clear to auscultation. Cardiac exam reveals regular rate and Rhythm. Abdominal exam reveals normal bowel sounds, nontender, no organomegaly. Extremities are nonedematous and both femoral and pedal pulses are normal. 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 No focal weakness. - Constitutional Vitals: Temp Pulse Resp BP Pulse Ox 98.8 F 100 H 20 137/85 88 12/07/20 05:17 12/07/20 05:17 12/07/20 05:17 12/07/20 05:17 12/07/20 05:17 General appearance: Present: mild distress, well-nourished HEART Score - HEART Score Troponin: Troponin T < 0.010 ng/mL (0.00-0.029) 12/06/20 14:04 Results - Labs CBC & Chem 7: 12/07/20 02:12 12/07/20 02:12 Labs: Laboratory Last Values WBC 4.6 K/mm3 (4.5-11.0) 12/07/20 02:12 RBC 3.61 M/mm3 (3.65-5.03) L 12/07/20 02:12 Hgb 9.2 gm/dl (10.1-14.3) L 12/07/20 02:12 Hct 27.8 % (30.3-42.9) L 12/07/20 02:12 MCV 77 fl (79-97) L 12/07/20 02:12 MCH 26 pg (28-32) L 12/07/20 02:12 MCHC 33 % (30-34) 12/07/20 02:12 RDW 14.1 % (13.2-15.2) 12/07/20 02:12 Plt Count 378 K/mm3 (140-440) 12/07/20 02:12 Lymph % (Auto) 30.9 % (13.4-35.0) 12/07/20 02:12 [place] % (Auto) 9.4 % (0.0-7.3) H 12/07/20 02:12 Eos % (Auto) 1.4 % (0.0-4.3) 12/07/20 02:12 Baso % (Auto) 0.6 % (0.0-1.8) 12/07/20 02:12 Lymph # (Auto) 1.4 K/mm3 (1.2-5.4) 12/07/20 02:12 [place] # (Auto) 0.4 K/mm3 (0.0-0.8) 12/07/20 02:12 Eos # (Auto) 0.1 K/mm3 (0.0-0.4) 12/07/20 02:12 Baso # (Auto) 0.0 K/mm3 (0.0-0.1) 12/07/20 02:12 Seg Neutrophils % 57.7 % (40.0-70.0) 12/07/20 02:12 Seg Neutrophils # 2.7 K/mm3 (1.8-7.7) 12/07/20 02:12 D-Dimer 185.58 ng/mlDDU (0-234) 12/06/20 15:24 Sodium 137 mmol/L (137-145) 12/07/20 02:12 Potassium 4.4 mmol/L (3.6-5.0) 12/07/20 02:12 Chloride 100.6 mmol/L (98-107) 12/07/20 02:12 Carbon Dioxide 24 mmol/L (22-30) 12/07/20 02:12 Anion Gap 17 mmol/L 12/07/20 02:12 BUN 12 mg/dL (7-17) 12/07/20 02:12 Creatinine 0.7 mg/dL (0.6-1.2) 12/07/20 02:12 Estimated GFR > 60 ml/min 12/07/20 02:12 BUN/Creatinine Ratio 17 % 12/07/20 02:12 Glucose 123 mg/dL (65-100) H 12/07/20 02:12 POC Glucose 79 mg/dL (70-105) 12/06/20 21:39 Hemoglobin A1c 8.2 % (4-6) H 12/07/20 02:12 Lactic Acid 1.10 mmol/L (0.7-2.0) 12/06/20 23:55 Calcium 8.3 mg/dL (8.4-10.2) L 12/07/20 02:12 Iron 22 ug/dL (37-170) L 12/07/20 07:28 TIBC 341 mcg/dL (250-450) 12/07/20 07:28 % Saturation 6.45 % 12/07/20 07:28 Transferrin 292 mg/dl (192-382) 12/07/20 07:28 Ferritin 40.7 ng/mL (10.0-200.0) 12/06/20 15:24 Total Bilirubin 0.40 mg/dL (0.1-1.2) 12/07/20 02:12 AST 26 units/L (5-40) 12/07/20 02:12 ALT 9 units/L (7-56) 12/07/20 02:12 Alkaline Phosphatase 94 units/L (35-129) 12/07/20 02:12 Lactate Dehydrogenase 418 units/L (91-180) H 12/06/20 15:24 Troponin T < 0.010 ng/mL (0.00-0.029) 12/06/20 14:04 C-Reactive Protein 7.10 mg/dL (0.00-1.30) H 12/06/20 15:24 NT-Pro-B Natriuret Pep 42.20 pg/mL (0-450) 12/06/20 14:04 Total Protein 8.3 g/dL (6.3-8.2) H 12/07/20 02:12 Albumin 3.2 g/dL (3.9-5) L 12/07/20 02:12 Albumin/Globulin Ratio 0.6 % 12/07/20 02:12 HCG, Qual Negative (Negative) 12/06/20 14:04 Microbiology: Microbiology 12/06/20 14:04 Peripheral/Venous Blood Culture - Preliminary Culture in Progress 12/06/20 14:04 Peripheral/Venous Blood Culture - Preliminary Culture in Progress Santiago/IV: Voiding Method Toilet Active Medications - Current Medications Current Medications: Generic Name Dose Route Start Last Admin Trade Name Freq PRN Reason Stop Dose Admin Acetaminophen 650 mg 12/06/20 21:36 Acetaminophen 325 Mg Tab PO Q4H PRN Pain MILD(1-3)/Fever >100.5/RODRIGUES Albuterol/Ipratropium 1 ampul 12/07/20 08:00 Ipratropium/Albuterol Sulfate 3 Ml Ampul.Neb IH TIDRT [facility] Ascorbic Acid 1,000 mg 12/06/20 22:00 12/06/20 22:59 Ascorbic Acid 500 Mg Tab PO 1,000 mg BID DARYA Administration Cholecalciferol 5,000 unit 12/06/20 22:00 12/06/20 23:20 Cholecalciferol (Vit D3) 5,000 Unit Tab PO 5,000 unit DAILY DARYA Administration Dexamethasone 8 mg 12/06/20 22:00 12/06/20 23:00 Dexamethasone 4 Mg/Ml Vial IV 8 mg Q24H DARYA Administration Enoxaparin Sodium 40 mg 12/06/20 22:00 12/07/20 00:03 Enoxaparin 40 Mg/0.4 Ml Inj SUB-Q Not Given QDAY@2200 [facility] Protocol Famotidine 20 mg 12/06/20 22:00 12/06/20 23:00 Famotidine 20 Mg Tab PO 20 mg BID [facility] Administration Guaifenesin 200 mg 12/06/20 23:59 12/07/20 00:42 Guaifenesin 100 Mg/5 Ml Oral Liqd PO 200 mg Q8H PRN Administration Cough Hydromorphone HCl 0.5 mg 12/06/20 21:36 Hydromorphone 1 Mg/1 Ml Inj IV Q3H PRN Pain , Severe (7-10) Azithromycin 500 mg in 250 mls @ 250 mls/hr 12/07/20 10:00 Zithromax/Ns IV 12/10/20 10:59 Q24HR [facility] Ceftriaxone Sodium 2 gm in 100 mls @ 200 mls/hr 12/07/20 10:00 Rocephin/Ns 2 Gm/100 Ml IV 12/10/20 10:29 Q24HR [facility] Protocol Metformin HCl 500 mg 12/06/20 21:30 12/06/20 23:20 Metformin Xr 500mg Tab PO 500 mg QAMDIAB DARYA Administration Metoclopramide HCl 10 mg 12/06/20 21:36 Metoclopramide 10 Mg/2 Ml Inj IV Q6H PRN Nausea And Vomiting Ondansetron HCl 4 mg 12/06/20 21:21 Ondansetron 4 Mg Odt Tab PO Q8H PRN Nausea And Vomiting Ondansetron HCl 4 mg 12/06/20 21:36 Ondansetron 4 Mg/2 Ml Inj IV Q8H PRN Nausea And Vomiting Oxycodone/Acetaminophen 1 tab 12/06/20 21:36 12/06/20 23:19 Oxycodone /Acetaminophen 5-325mg Tab PO 1 tab Q6H PRN Administration Pain, Moderate (4-6) Sodium Chloride 10 ml 12/06/20 22:00 12/06/20 23:02 Sodium Chloride 0.9% 10 Ml Flush Syringe IV 10 ml BID DARYA Administration Sodium Chloride 10 ml 12/06/20 21:36 Sodium Chloride 0.9% 10 Ml Flush Syringe IV PRN PRN LINE FLUSH Tramadol HCl 50 mg 12/06/20 21:21 Tramadol 50 Mg Tab PO Q8H PRN PAIN (4-6) Zinc Sulfate 220 mg 12/06/20 22:00 12/06/20 23:00 Zinc Sulfate 220 Mg Cap PO 220 mg BID DARYA Administration
[2020-12-07] MEDS ORDERED: AZITHROMYCIN 250 MG TAB PO SCH (10:00)
[2020-12-07] MEDS: ZINC SULFATE 220 MG CAP PO SCH ×2 (10:22→22:37)
[2020-12-07] MEDS: CHOLECALCIFEROL (VIT D3) 5,000 UNIT TAB PO SCH (10:22)
[2020-12-07] MEDS: FAMOTIDINE 20 MG TAB PO SCH ×2 (10:22→22:34)
[2020-12-07] MEDS: cefTRIAXone/NS 2 GM/100 ML 2 GM/100 ML BAG IV SCH (10:22)
[2020-12-07] MEDS: ASCORBIC ACID 500 MG TAB PO SCH ×2 (10:22→22:34)
[2020-12-07] MEDS: metFORMIN XR 500MG TAB PO SCH (10:25)
[2020-12-07 11:05] LABS: Bilirubin,Urine NEG (Negative); Blood,Urine NEG (Negative); Color,Urine Yellow (Yellow); Protein,Urine <15 mg/dL mg/dL (Negative)
[2020-12-07] MEDS: AZITHROMYCIN/NS 500 MG/250 ML 500 MG/250 ML BAG IV SCH (11:20)
[2020-12-07 12:26] LABS: WBC,Urine < 1.0 /HPF (0.0-6.0)
--- NOTE | 2020-12-07 14:15 | Consultation ---
History of Present Illness - Reason for Consult Consult date: 12/07/20 - History of Present Illness 35 yo F PMHx HIV, Dm2, CHF presents to the hosptial complaining of SOB and fevers. She notes this began one week prior to admission. She also notes myalgias which are her most prominent symptom. She denies receiving the COVID vaccine. She was recently admitted here with pneumonia and was treated with antibiotics. COVID was negative at that time as well. Regarding her HIV she has been undetectable for many years, and has an outside HIV provider. She is on Truvada, darunavir, and Norvir. Afebrile, normal white count. [place] COVID PCR. Normal renal function. Procalcitonin normal. Blood cultures no growth so far. Imaging personally reviewed: Chest CTA: No PE. Diffuse groundglass opacities, worse than previous. CTAP: Cholelithiasis w/o cholecystitis Review of systems: Deferred to reduce to the risk of transmission of COVID-19 Medications and Allergies Allergies Allergy/AdvReac Type Severity Reaction Status Date / Time Penicillins Allergy Swelling Verified 11/13/20 16:58 Home Medications Medication Instructions Recorded Confirmed Last Taken Type Ibuprofen [Motrin 800 MG tab] 800 mg PO Q8HR PRN #20 tablet 11/07/17 11/15/20 Unknown Rx Ondansetron [Zofran ODT TAB] 4 mg PO Q8HR PRN #14 tab.rapdis 11/11/17 11/15/20 11/11/20 Rx medroxyPROGESTERone ACETATE 10 mg PO QDAY #10 tablet 12/02/17 11/15/20 11/12/20 09:00 Rx [Provera] traMADoL [Ultram 50 MG tab] 50 mg PO Q8HR PRN #15 tablet 12/02/17 11/15/20 11/12/20 Rx Azithromycin [Zithromax TAB] 500 mg PO QDAY #2 tablet 11/15/20 Unknown Rx Famotidine [Pepcid] 20 mg PO BID #30 tablet 11/15/20 Unknown Rx Metformin HCl [metFORMIN ER 500 mg PO DAILY #30 tab.er.24 11/15/20 Unknown Rx Osmotic] cefUROXime [Ceftin] 500 mg PO BID #4 tablet 11/15/20 Unknown Rx Active Meds: Active Medications Acetaminophen (Acetaminophen 325 Mg Tab) 650 mg PO Q4H PRN PRN Reason: Pain MILD(1-3)/Fever >100.5/RODRIGUES Albuterol/Ipratropium (Ipratropium/Albuterol Sulfate 3 Ml Ampul.Neb) 1 ampul IH TIDRT [facility] Last Admin: 12/07/20 08:55 Dose: 1 ampul Documented by: Ascorbic Acid (Ascorbic Acid 500 Mg Tab) 1,000 mg PO BID [facility] Last Admin: 12/07/20 10:22 Dose: 1,000 mg Documented by: Cholecalciferol (Cholecalciferol (Vit D3) 5,000 Unit Tab) 5,000 unit PO DAILY [facility] Last Admin: 12/07/20 10:22 Dose: 5,000 unit Documented by: Dexamethasone (Dexamethasone 4 Mg/Ml Vial) 8 mg IV Q24H [facility] Last Admin: 12/06/20 23:00 Dose: 8 mg Documented by: Enoxaparin Sodium (Enoxaparin 40 Mg/0.4 Ml Inj) 40 mg SUB-Q QDAY@2200 [facility]; Protocol Last Admin: 12/07/20 00:03 Dose: Not Given Documented by: Famotidine (Famotidine 20 Mg Tab) 20 mg PO BID [facility] Last Admin: 12/07/20 10:22 Dose: 20 mg Documented by: Guaifenesin (Guaifenesin 100 Mg/5 Ml Oral Liqd) 200 mg PO Q8H PRN PRN Reason: Cough Last Admin: 12/07/20 00:42 Dose: 200 mg Documented by: Hydromorphone HCl (Hydromorphone 1 Mg/1 Ml Inj) 0.5 mg IV Q3H PRN PRN Reason: Pain , Severe (7-10) Azithromycin (Zithromax/Ns) 500 mg in 250 mls @ 250 mls/hr IV Q24HR [facility] Stop: 12/10/20 10:59 Last Admin: 12/07/20 11:20 Dose: 250 mls/hr Documented by: Ceftriaxone Sodium (Rocephin/Ns 2 Gm/100 Ml) 2 gm in 100 mls @ 200 mls/hr IV Q24HR [facility]; Protocol Stop: 12/10/20 10:29 Last Admin: 12/07/20 10:22 Dose: 200 mls/hr Documented by: Metformin HCl (Metformin Xr 500mg Tab) 500 mg PO QAMDIAB [facility] Last Admin: 12/07/20 10:25 Dose: 500 mg Documented by: Metoclopramide HCl (Metoclopramide 10 Mg/2 Ml Inj) 10 mg IV Q6H PRN PRN Reason: Nausea And Vomiting Ondansetron HCl (Ondansetron 4 Mg Odt Tab) 4 mg PO Q8H PRN PRN Reason: Nausea And Vomiting Ondansetron HCl (Ondansetron 4 Mg/2 Ml Inj) 4 mg IV Q8H PRN PRN Reason: Nausea And Vomiting Oxycodone/Acetaminophen (Oxycodone /Acetaminophen 5-325mg Tab) 1 tab PO Q6H PRN PRN Reason: Pain, Moderate (4-6) Last Admin: 12/06/20 23:19 Dose: 1 tab Documented by: Sodium Chloride (Sodium Chloride 0.9% 10 Ml Flush Syringe) 10 ml IV BID [facility] Last Admin: 12/07/20 10:23 Dose: 10 ml Documented by: Sodium Chloride (Sodium Chloride 0.9% 10 Ml Flush Syringe) 10 ml IV PRN PRN PRN Reason: LINE FLUSH Tramadol HCl (Tramadol 50 Mg Tab) 50 mg PO Q8H PRN PRN Reason: PAIN (4-6) Zinc Sulfate (Zinc Sulfate 220 Mg Cap) 220 mg PO BID [facility] Last Admin: 12/07/20 10:22 Dose: 220 mg Documented by: Physical Examination - Physical Exam Narrative exam: Physical exam deferred to reduce risk of transmission of COVID-19. Please refer to primary team's note. - Constitutional Vitals: Vital Signs Temp Pulse Resp BP Pulse Ox 98.2 F 108 H 22 121/74 90 12/07/20 11:47 12/07/20 11:47 12/07/20 11:47 12/07/20 11:47 12/07/20 11:47 Temperature -Last 24 Hours Temperature 98.2 F Temperature 98.8 F Temperature 99.3 F Results - Labs CBC & Chem 7: 12/07/20 02:12 12/07/20 02:12 Labs: Abnormal lab results 12/06/20 12/06/20 12/06/20 Range/Units 14:04 14:04 15:24 RBC 3.57 L (3.65-5.03) M/mm3 Hgb 8.8 L (10.1-14.3) gm/dl Hct 27.3 L (30.3-42.9) % MCV 76 L (79-97) fl MCH 25 L (28-32) pg [place] % (Auto) 8.5 H (0.0-7.3) % Sodium 136 L (137-145) mmol/L Glucose 149 H (65-100) mg/dL POC Glucose (70-105) mg/dL Hemoglobin A1c (4-6) % Calcium (8.4-10.2) mg/dL Iron (37-170) ug/dL Lactate Dehydrogenase 418 H (91-180) units/L C-Reactive Protein 7.10 H (0.00-1.30) mg/dL Total Protein 8.6 H (6.3-8.2) g/dL Albumin 2.9 L (3.9-5) g/dL 12/07/20 12/07/20 12/07/20 Range/Units 02:12 02:12 02:12 RBC 3.61 L (3.65-5.03) M/mm3 Hgb 9.2 L (10.1-14.3) gm/dl Hct 27.8 L (30.3-42.9) % MCV 77 L (79-97) fl MCH 26 L (28-32) pg [place] % (Auto) 9.4 H (0.0-7.3) % Sodium (137-145) mmol/L Glucose 123 H (65-100) mg/dL POC Glucose (70-105) mg/dL Hemoglobin A1c 8.2 H (4-6) % Calcium 8.3 L (8.4-10.2) mg/dL Iron (37-170) ug/dL Lactate Dehydrogenase (91-180) units/L C-Reactive Protein (0.00-1.30) mg/dL Total Protein 8.3 H (6.3-8.2) g/dL Albumin 3.2 L (3.9-5) g/dL 12/07/20 12/07/20 Range/Units 07:28 07:48 RBC (3.65-5.03) M/mm3 Hgb (10.1-14.3) gm/dl Hct (30.3-42.9) % MCV (79-97) fl MCH (28-32) pg [place] % (Auto) (0.0-7.3) % Sodium (137-145) mmol/L Glucose (65-100) mg/dL POC Glucose 290 H (70-105) mg/dL Hemoglobin A1c (4-6) % Calcium (8.4-10.2) mg/dL Iron 22 L (37-170) ug/dL Lactate Dehydrogenase (91-180) units/L C-Reactive Protein (0.00-1.30) mg/dL Total Protein (6.3-8.2) g/dL Albumin (3.9-5) g/dL Assessment and Plan Cultures: Blood culture 12/06/2020 no growth so far. A/P: 35 yo F PMHx HIV, Dm2, CHF admitted with SOB, myalgias. #COVID PUI: admitted with SOB and myalgias. Was seen here 3 weeks previously and tested negative for COVID then. Await PCR. CT without PE, but with worsening GGO bilaterally. #HIV: well controlled with Truvada, norvir, and darunavir. Hs outpatient ID. Recs: -Can continue antibiotics for now, would stop if COVID PCR positive -Follow up COVID PCR, if positive and patient hypoxic would start remdesivir -continue home Truvada, Norvir, darunavir. -Follow up with outpatient ID on discharge. Thank you for the consult, we will continue to follow. MD [facility] O: [phone] F: [phone]
[2020-12-07] MEDS ORDERED: EMTRICITABINE 200 MG, TENOFOVIR 300 MG PO SCH (15:00)
[2020-12-07] MEDS: oxyCODONE /ACETAMINOPHEN 5-325MG TAB PO PRN ×2 (16:57→23:48)
[2020-12-07] MEDS: EMTRICITABINE 200 MG CAP PO SCH (17:17)
[2020-12-07] MEDS: RITONAVIR 100 MG TAB PO SCH (17:18)
[2020-12-07] MEDS: DARUNAVIR 800 MG TAB PO SCH (17:18)
[2020-12-07] MEDS: TENOFOVIR 300 MG TAB PO SCH (17:18)
[2020-12-07] MEDS: ZOLPIDEM 5 MG TAB PO PRN (22:34)
[2020-12-07] MEDS: dexAMETHasone 4 MG/ML VIAL IV SCH (22:35)
[2020-12-08] MEDS: IPRATROPIUM/ALBUTEROL SULFATE 3 ML AMPUL.NEB IH SCH ×3 (07:37→21:21)
[2020-12-08] MEDS: cefTRIAXone/NS 2 GM/100 ML 2 GM/100 ML BAG IV SCH (09:08)
[2020-12-08] MEDS: DARUNAVIR 800 MG TAB PO SCH (09:10)
[2020-12-08] MEDS: RITONAVIR 100 MG TAB PO SCH (09:10)
[2020-12-08] MEDS: CHOLECALCIFEROL (VIT D3) 5,000 UNIT TAB PO SCH (09:11)
[2020-12-08] MEDS: EMTRICITABINE 200 MG CAP PO SCH (09:11)
[2020-12-08] MEDS: ZINC SULFATE 220 MG CAP PO SCH ×2 (09:11→23:11)
[2020-12-08] MEDS: ASCORBIC ACID 500 MG TAB PO SCH ×2 (09:11→23:10)
[2020-12-08] MEDS: metFORMIN XR 500MG TAB PO SCH (09:11)
[2020-12-08] MEDS: TENOFOVIR 300 MG TAB PO SCH (09:11)
[2020-12-08] MEDS: FAMOTIDINE 20 MG TAB PO SCH ×2 (09:11→23:10)
[2020-12-08] MEDS: AZITHROMYCIN/NS 500 MG/250 ML 500 MG/250 ML BAG IV SCH (11:01)
--- NOTE | 2020-12-08 13:26 | Progress Note ---
Assessment and Plan Assessment and plan: (1) Sepsis with acute hypoxic respiratory failure Current Visit: Yes Status: Acute Qualifiers: Severe sepsis shock status: unspecified Plan to address problem: Supplemental oxygen and keep the oxygen saturations above 92 Possible Covid pneumonia Treat for bilateral pneumonia and Covid pneumonia (2) Bilateral pneumonia Current Visit: Yes Status: Acute Plan to address problem: Treated as community-acquired pneumonia Coronavirus PCR requested IV Decadron initiated ID consult requested (3) CHF (congestive heart failure) Current Visit: No Status: Chronic Qualifiers: Heart failure type: combined systolic and diastolic Plan to address problem: Cardiogram for ejection fraction IV Lasix 40 mg every 24 (4) Person under investigation for COVID-19 Current Visit: Yes Status: Acute Plan to address problem: Coronavirus PCR requested IV Decadron initiated Zinc vitamin C and vitamin D initiated (5) HIV (human immunodeficiency virus infection) Current Visit: Yes Status: Chronic Qualifiers: HIV symptom status: asymptomatic, with no history of HIV-related illness Qualified Code(s): Z21 - Asymptomatic human immunodeficiency virus [HIV] inf ection status Plan to address problem: Patient on Zithromax (6) T2DM (type 2 diabetes mellitus) Current Visit: Yes Status: Chronic Qualifiers: 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 insulin use status Plan to address problem: Check hemoglobin A1c Accu-Cheks AC at bedtime Coverage as per moderate dose sliding scale Continue Metformin (7) DVT prophylaxis Current Visit: Yes Status: Acute Plan to address problem: On Lovenox and GI prophylaxis (8) Anemia Current Visit: Yes Status: Chronic Qualifiers: Anemia type: iron deficiency Plan to address problem: Probable iron deficiency anemia: Check iron levels B12 and folic acid (9) DVT prophylaxis Current Visit: No Status: Acute Plan to address problem: Lovenox and GI prophylaxis 12/07/2020 -COVID-19 test is pending -Continue with IV antibiotics for now, follow procalcitonin level -ID consulted. -Patient's hemoglobin A1c is 8.2 -HIV; patient will follow with ID 12/08/2020 -CTA showed worsening of her groundglass opacities -COVID-19 test was negative -ID consulted and recommend to continue with antibiotics for now -Patient is on her HIV medications -Patient will oxygen saturation dropped to 85% on ambulation and patient require oxygen at discharge -I put a consult for pulmonary History Interval history: Patient was seen and evaluated this morning Patient complains short shortness of breath Hospitalist Physical - Physical exam Narrative exam: Not in cardiopulmonary distress. The patient appeared well nourished and normally developed. Vital signs as documented. Head exam is unremarkable. No scleral icterus . Neck is without jugular venous distension, thyromegaly, or carotid bruits. Lungs scattered wheezing. Cardiac exam reveals regular rate and Rhythm. Abdominal exam reveals normal bowel sounds, nontender, no organomegaly. Extremities are nonedematous and both femoral and pedal pulses are normal. 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 No focal weakness. - Constitutional Vitals: Temp Pulse Resp BP Pulse Ox 98.3 F 105 H 20 128/85 99 12/08/20 11:41 12/08/20 11:41 12/08/20 11:41 12/08/20 11:41 12/08/20 11:41 General appearance: Present: mild distress, well-nourished HEART Score - HEART Score Troponin: Troponin T < 0.010 ng/mL (0.00-0.029) 12/06/20 14:04 Results - Labs CBC & Chem 7: 12/07/20 02:12 12/07/20 02:12 Labs: Laboratory Last Values WBC 4.6 K/mm3 (4.5-11.0) 12/07/20 02:12 RBC 3.61 M/mm3 (3.65-5.03) L 12/07/20 02:12 Hgb 9.2 gm/dl (10.1-14.3) L 12/07/20 02:12 Hct 27.8 % (30.3-42.9) L 12/07/20 02:12 MCV 77 fl (79-97) L 12/07/20 02:12 MCH 26 pg (28-32) L 12/07/20 02:12 MCHC 33 % (30-34) 12/07/20 02:12 RDW 14.1 % (13.2-15.2) 12/07/20 02:12 Plt Count 378 K/mm3 (140-440) 12/07/20 02:12 Lymph % (Auto) 30.9 % (13.4-35.0) 12/07/20 02:12 [place] % (Auto) 9.4 % (0.0-7.3) H 12/07/20 02:12 Eos % (Auto) 1.4 % (0.0-4.3) 12/07/20 02:12 Baso % (Auto) 0.6 % (0.0-1.8) 12/07/20 02:12 Lymph # (Auto) 1.4 K/mm3 (1.2-5.4) 12/07/20 02:12 [place] # (Auto) 0.4 K/mm3 (0.0-0.8) 12/07/20 02:12 Eos # (Auto) 0.1 K/mm3 (0.0-0.4) 12/07/20 02:12 Baso # (Auto) 0.0 K/mm3 (0.0-0.1) 12/07/20 02:12 Seg Neutrophils % 57.7 % (40.0-70.0) 12/07/20 02:12 Seg Neutrophils # 2.7 K/mm3 (1.8-7.7) 12/07/20 02:12 D-Dimer 185.58 ng/mlDDU (0-234) 12/06/20 15:24 Sodium 137 mmol/L (137-145) 12/07/20 02:12 Potassium 4.4 mmol/L (3.6-5.0) 12/07/20 02:12 Chloride 100.6 mmol/L (98-107) 12/07/20 02:12 Carbon Dioxide 24 mmol/L (22-30) 12/07/20 02:12 Anion Gap 17 mmol/L 12/07/20 02:12 BUN 12 mg/dL (7-17) 12/07/20 02:12 Creatinine 0.7 mg/dL (0.6-1.2) 12/07/20 02:12 Estimated GFR > 60 ml/min 12/07/20 02:12 BUN/Creatinine Ratio 17 % 12/07/20 02:12 Glucose 123 mg/dL (65-100) H 12/07/20 02:12 POC Glucose 360 mg/dL (70-105) H 12/08/20 11:35 Hemoglobin A1c 8.2 % (4-6) H 12/07/20 02:12 Lactic Acid 1.10 mmol/L (0.7-2.0) 12/06/20 23:55 Calcium 8.3 mg/dL (8.4-10.2) L 12/07/20 02:12 Iron 22 ug/dL (37-170) L 12/07/20 07:28 TIBC 341 mcg/dL (250-450) 12/07/20 07:28 % Saturation 6.45 % 12/07/20 07:28 Transferrin 292 mg/dl (192-382) 12/07/20 07:28 Ferritin 40.7 ng/mL (10.0-200.0) 12/06/20 15:24 Total Bilirubin 0.40 mg/dL (0.1-1.2) 12/07/20 02:12 AST 26 units/L (5-40) 12/07/20 02:12 ALT 9 units/L (7-56) 12/07/20 02:12 Alkaline Phosphatase 94 units/L (35-129) 12/07/20 02:12 Lactate Dehydrogenase 418 units/L (91-180) H 12/06/20 15:24 Troponin T < 0.010 ng/mL (0.00-0.029) 12/06/20 14:04 C-Reactive Protein 7.10 mg/dL (0.00-1.30) H 12/06/20 15:24 NT-Pro-B Natriuret Pep 42.20 pg/mL (0-450) 12/06/20 14:04 Total Protein 8.3 g/dL (6.3-8.2) H 12/07/20 02:12 Albumin 3.2 g/dL (3.9-5) L 12/07/20 02:12 Albumin/Globulin Ratio 0.6 % 12/07/20 02:12 Vitamin B12 304.1 pg/mL (211-911) 12/07/20 07:28 Procalcitonin < 0.05 ng/mL (<0.15) 12/06/20 15:24 HCG, Qual Negative (Negative) 12/06/20 14:04 Urine Color Yellow (Yellow) 12/07/20 Unknown Urine Turbidity Clear (Clear) 12/07/20 Unknown Urine pH 7.0 (5.0-7.0) 12/07/20 Unknown Ur Specific Tabiona 1.017 (1.003-1.030) 12/07/20 Unknown Urine Protein <15 mg/dl mg/dL (Negative) 12/07/20 Unknown Urine Glucose (UA) 150 mg/dL (Negative) 12/07/20 Unknown Urine Ketones Neg mg/dL (Negative) 12/07/20 Unknown Urine Blood Neg (Negative) 12/07/20 Unknown Urine Nitrite Neg (Negative) 12/07/20 Unknown Urine Bilirubin Neg (Negative) 12/07/20 Unknown Urine Urobilinogen 2.0 mg/dL (<2.0) 12/07/20 Unknown Ur Leukocyte Esterase Neg (Negative) 12/07/20 Unknown Urine WBC (Auto) < 1.0 /HPF (0.0-6.0) 12/07/20 Unknown Urine RBC (Auto) 1.0 /HPF (0.0-6.0) 12/07/20 Unknown U Epithel Cells (Auto) 6.0 /HPF (0-13.0) 12/07/20 Unknown Coronavirus (PCR) Negative (Negative) 12/06/20 08:46 Microbiology: Microbiology 12/06/20 14:04 Peripheral/Venous Blood Culture - Preliminary NO GROWTH AFTER 24 HOURS 12/06/20 14:04 Peripheral/Venous Blood Culture - Preliminary NO GROWTH AFTER 24 HOURS Santiago/IV: Voiding Method Toilet Active Medications - Current Medications Current Medications: Generic Name Dose Route Start Last Admin Trade Name Freq PRN Reason Stop Dose Admin Acetaminophen 650 mg 12/06/20 21:36 Acetaminophen 325 Mg Tab PO Q4H PRN Pain MILD(1-3)/Fever >100.5/RODRIGUES Albuterol/Ipratropium 1 ampul 12/07/20 08:00 12/08/20 07:37 Ipratropium/Albuterol Sulfate 3 Ml Ampul.Neb IH 1 ampul TIDRT DARYA Administration Ascorbic Acid 1,000 mg 12/06/20 22:00 12/08/20 09:11 Ascorbic Acid 500 Mg Tab PO 1,000 mg BID DARYA Administration Cholecalciferol 5,000 unit 12/06/20 22:00 12/08/20 09:11 Cholecalciferol (Vit D3) 5,000 Unit Tab PO 5,000 unit DAILY DARYA Administration Darunavir 800 mg 12/07/20 16:00 12/08/20 09:10 Darunavir 800 Mg Tab PO 800 mg QDAY DARYA Administration Emtricitabine 200 mg 12/07/20 16:00 12/08/20 09:11 Emtricitabine 200 Mg Cap PO 200 mg QDAY DARYA Administration Enoxaparin Sodium 40 mg 12/06/20 22:00 12/07/20 22:34 Enoxaparin 40 Mg/0.4 Ml Inj SUB-Q 40 mg QDAY@2200 DARYA Administration Protocol Famotidine 20 mg 12/06/20 22:00 12/08/20 09:11 Famotidine 20 Mg Tab PO 20 mg BID DARYA Administration Guaifenesin 200 mg 12/06/20 23:59 12/07/20 00:42 Guaifenesin 100 Mg/5 Ml Oral Liqd PO 200 mg Q8H PRN Administration Cough Azithromycin 500 mg in 250 mls @ 250 mls/hr 12/07/20 10:00 12/08/20 11:01 Zithromax/Ns IV 12/10/20 10:59 250 mls/hr Q24HR DARYA Administration Ceftriaxone Sodium 2 gm in 100 mls @ 200 mls/hr 12/07/20 10:00 12/08/20 09:08 Rocephin/Ns 2 Gm/100 Ml IV 12/10/20 10:29 200 mls/hr Q24HR DARYA Administration Protocol Metformin HCl 500 mg 12/06/20 21:30 12/08/20 09:11 Metformin Xr 500mg Tab PO 500 mg QAMDIAB DARYA Administration Metoclopramide HCl 10 mg 12/06/20 21:36 Metoclopramide 10 Mg/2 Ml Inj IV Q6H PRN Nausea And Vomiting Ondansetron HCl 4 mg 12/06/20 21:21 Ondansetron 4 Mg Odt Tab PO Q8H PRN Nausea And Vomiting Ondansetron HCl 4 mg 12/06/20 21:36 Ondansetron 4 Mg/2 Ml Inj IV Q8H PRN Nausea And Vomiting Oxycodone/Acetaminophen 2 tab 12/07/20 18:00 12/07/20 23:48 Oxycodone /Acetaminophen 5-325mg Tab PO 2 tab Q6H PRN Administration Pain, Moderate (4-6) Ritonavir 100 mg 12/07/20 16:00 12/08/20 09:10 Ritonavir 100 Mg Tab PO 100 mg QDAY DARYA Administration Sodium Chloride 10 ml 12/06/20 22:00 12/08/20 09:09 Sodium Chloride 0.9% 10 Ml Flush Syringe IV 10 ml BID DARYA Administration Sodium Chloride 10 ml 12/06/20 21:36 Sodium Chloride 0.9% 10 Ml Flush Syringe IV PRN PRN LINE FLUSH Tenofovir Disoproxil Fumarate 300 mg 12/07/20 16:00 12/08/20 09:11 Tenofovir 300 Mg Tab PO 300 mg QDAY DARYA Administration Tramadol HCl 50 mg 12/06/20 21:21 Tramadol 50 Mg Tab PO Q8H PRN PAIN (4-6) Zinc Sulfate 220 mg 12/06/20 22:00 12/08/20 09:11 Zinc Sulfate 220 Mg Cap PO 220 mg BID DARYA Administration Zolpidem Tartrate 5 mg 12/07/20 22:00 12/07/20 22:34 Zolpidem 5 Mg Tab PO 5 mg QHS PRN Administration Sleep Nutrition/Malnutrition Assess - Dietary Evaluation Nutrition/Malnutrition Findings: Nutrition Notes Start: 12/07/20 15:58 Freq: Status: Active Protocol: Document 12/07/20 15:58 SATNAM (Rec: 12/07/20 15:59 SATNAM [id number]) Nutrition Notes Need for Assessment generated from: clinical case manager Initial or Follow up Brief Note Subjective/Other Information Pt screened for skin risk, however, Dmitri score is 20. Will assess upon further consult or LOS. Burn Absent Trauma Absent Minimum of two criteria No
--- NOTE | 2020-12-08 13:57 | Progress Note ---
Assessment and Plan Cultures: Blood culture 12/06/2020 no growth so far. A/P: 35 yo F PMHx HIV, Dm2, CHF admitted with SOB, myalgias. #Bilateral PNA: admitted with SOB and myalgias. Was seen here 3 weeks previously and tested negative for COVID then. CT without PE, but with worsening GGO bilaterally. Normal procalcitonin. Other viral etiology? Doubt opportunistic infection given historical excellent control of HIV. She does not have any pets, and lives in the city. No recent travel. no travel to the [place]. #HIV: well controlled with Truvada, norvir, and darunavir. Has outpatient ID. Recs: -Check fungitell -Check flu/RSV -continue home Truvada, Norvir, darunavir. -Follow up with outpatient ID on discharge. -Escalated to cefepime as she was recently admitted -Added doxycycline Thank you for the consult, we will continue to follow. Shilo Harden MD [facility] ([facility] O: [phone] F: [phone] Subjective Date of service: 12/08/20 Interval history: Afebrile, normal white count. COVID PCR negative. On 2L NC Objective - Exam Narrative Exam: Physical Exam: Constitutional: Alert, cooperative. No acute distress Head, Ears, Nose: Normocephalic, atraumatic. External ears, nose normal Eyes: Conjunctivae/corneas clear. No icterus. No ptosis. Neck: Supple, no meningeal signs Oral: dentition fair, no thrush Cardiovascular: S1, S2 normal. Respiratory: Good air entry, clear to auscultation bilaterally GI: Soft, non-tender; bowel sounds normal. No peritoneal signs. Musculoskeletal: No pedal edema, no cyanosis. Skin: No rash or abscess Hem/Lymphatic: No palpable cervical or supraclavicular nodes. No lymphangitis Psych: Mood ok. Affect normal Neurological: Awake, alert, oriented. No gross abnormality - Constitutional Vitals: Vital Signs Temp Pulse Resp BP Pulse Ox 98.3 F 98 H 16 128/85 99 12/08/20 11:41 12/08/20 13:29 12/08/20 13:29 12/08/20 11:41 12/08/20 11:41 Temperature -Last 24 Hours Temperature 98.3 F Temperature 98.1 F Temperature 98.3 F Temperature 98.0 F - Labs CBC & Chem 7: 12/07/20 02:12 12/07/20 02:12 Labs: Abnormal lab results 12/07/20 12/07/20 12/07/20 Range/Units 11:48 16:46 22:36 POC Glucose 217 H 203 H 189 H (70-105) mg/dL 12/08/20 12/08/20 Range/Units 08:50 11:35 POC Glucose 293 H 360 H (70-105) mg/dL
--- NOTE | 2020-12-08 14:26 | Consultation ---
History of Present Illness Consult date: 12/08/20 Requesting physician: RAMON ROBIN Reason for consult: abnormal CXR/CT History of present illness: 35 yo F PMHx HIV, Dm2, CHF presents to the hospital complaining of SOB and fevers. She notes this began one week prior to admission. She also notes myalgias which are her most prominent symptom. She denies receiving the COVID vaccine. She was recently admitted here with pneumonia and was treated with antibiotics. COVID was negative at that time . COVID PCR is negative. Normal renal function. Procalcitonin normal. Blood cultures no growth so far. She is lying in the chair, states she feels tired and has had fevers. Denies any chest pain at this time. Constitutional: fever Eyes: denies: eye pain, vision change ENT: denies: throat pain, congestion Respiratory: cough, shortness of breath Cardiovascular: chest pain. denies: palpitations, syncope Gastrointestinal: abdominal pain. denies: nausea, vomiting Genitourinary: denies: dysuria, frequency Musculoskeletal: myalgia. denies: back pain Skin: denies: rash Neurological: denies: headache, weakness, numbness - Past Medical History Previous Medical History?: Yes --Congestive Heart Failure: Yes --HIV: Yes -Type 2 diabetes - Surgical History Past Surgical History?: Yes --Breast Surgery: Yes (reduction) --Additional Surgical History: Hysterectomy; x3 - Social History Smoking Status: Never Smoker Medications and Allergies Allergies Allergy/AdvReac Type Severity Reaction Status Date / Time Penicillins Allergy Swelling Verified 11/13/20 16:58 Home Medications Medication Instructions Recorded Confirmed Last Taken Type Ondansetron [Zofran ODT TAB] 4 mg PO Q8HR PRN #14 tab.rapdis 11/11/17 12/08/20 11/11/20 Rx traMADoL [Ultram 50 MG tab] 50 mg PO Q8HR PRN #15 tablet 12/02/17 12/08/20 11/12/20 Rx Azithromycin [Zithromax TAB] 500 mg PO QDAY #2 tablet 11/15/20 12/08/20 11/18/20 Rx Metformin HCl [metFORMIN ER 500 mg PO DAILY #30 tab.er.24 11/15/20 12/08/20 12/06/20 Rx Osmotic] cefUROXime [Ceftin] 500 mg PO BID #4 tablet 11/15/20 12/08/20 11/18/20 Rx Active Meds: Active Medications Acetaminophen (Acetaminophen 325 Mg Tab) 650 mg PO Q4H PRN PRN Reason: Pain MILD(1-3)/Fever >100.5/RODRIGUES Albuterol/Ipratropium (Ipratropium/Albuterol Sulfate 3 Ml Ampul.Neb) 1 ampul IH TIDRT [facility] Last Admin: 12/08/20 13:28 Dose: 1 ampul Documented by: Ascorbic Acid (Ascorbic Acid 500 Mg Tab) 1,000 mg PO BID [facility] Last Admin: 12/08/20 09:11 Dose: 1,000 mg Documented by: Cholecalciferol (Cholecalciferol (Vit D3) 5,000 Unit Tab) 5,000 unit PO DAILY [facility] Last Admin: 12/08/20 09:11 Dose: 5,000 unit Documented by: Darunavir (Darunavir 800 Mg Tab) 800 mg PO QDAY [facility] Last Admin: 12/08/20 09:10 Dose: 800 mg Documented by: Emtricitabine (Emtricitabine 200 Mg Cap) 200 mg PO QDAY [facility] Last Admin: 12/08/20 09:11 Dose: 200 mg Documented by: Enoxaparin Sodium (Enoxaparin 40 Mg/0.4 Ml Inj) 40 mg SUB-Q QDAY@2200 [facility]; Protocol Last Admin: 12/07/20 22:34 Dose: 40 mg Documented by: Famotidine (Famotidine 20 Mg Tab) 20 mg PO BID [facility] Last Admin: 12/08/20 09:11 Dose: 20 mg Documented by: Guaifenesin (Guaifenesin 100 Mg/5 Ml Oral Liqd) 200 mg PO Q8H PRN PRN Reason: Cough Last Admin: 12/07/20 00:42 Dose: 200 mg Documented by: Azithromycin (Zithromax/Ns) 500 mg in 250 mls @ 250 mls/hr IV Q24HR [facility] Stop: 12/10/20 10:59 Last Admin: 12/08/20 11:01 Dose: 250 mls/hr Documented by: Ceftriaxone Sodium (Rocephin/Ns 2 Gm/100 Ml) 2 gm in 100 mls @ 200 mls/hr IV Q24HR [facility]; Protocol Stop: 12/10/20 10:29 Last Admin: 12/08/20 09:08 Dose: 200 mls/hr Documented by: Metformin HCl (Metformin Xr 500mg Tab) 500 mg PO QAMDIAB [facility] Last Admin: 12/08/20 09:11 Dose: 500 mg Documented by: Metoclopramide HCl (Metoclopramide 10 Mg/2 Ml Inj) 10 mg IV Q6H PRN PRN Reason: Nausea And Vomiting Ondansetron HCl (Ondansetron 4 Mg Odt Tab) 4 mg PO Q8H PRN PRN Reason: Nausea And Vomiting Ondansetron HCl (Ondansetron 4 Mg/2 Ml Inj) 4 mg IV Q8H PRN PRN Reason: Nausea And Vomiting Oxycodone/Acetaminophen (Oxycodone /Acetaminophen 5-325mg Tab) 2 tab PO Q6H PRN PRN Reason: Pain, Moderate (4-6) Last Admin: 12/07/20 23:48 Dose: 2 tab Documented by: Ritonavir (Ritonavir 100 Mg Tab) 100 mg PO QDAY [facility] Last Admin: 12/08/20 09:10 Dose: 100 mg Documented by: Sodium Chloride (Sodium Chloride 0.9% 10 Ml Flush Syringe) 10 ml IV BID [facility] Last Admin: 12/08/20 09:09 Dose: 10 ml Documented by: Sodium Chloride (Sodium Chloride 0.9% 10 Ml Flush Syringe) 10 ml IV PRN PRN PRN Reason: LINE FLUSH Tenofovir Disoproxil Fumarate (Tenofovir 300 Mg Tab) 300 mg PO QDAY [facility] Last Admin: 12/08/20 09:11 Dose: 300 mg Documented by: Tramadol HCl (Tramadol 50 Mg Tab) 50 mg PO Q8H PRN PRN Reason: PAIN (4-6) Zinc Sulfate (Zinc Sulfate 220 Mg Cap) 220 mg PO BID [facility] Last Admin: 12/08/20 09:11 Dose: 220 mg Documented by: Zolpidem Tartrate (Zolpidem 5 Mg Tab) 5 mg PO QHS PRN PRN Reason: Sleep Last Admin: 12/07/20 22:34 Dose: 5 mg Documented by: Physical Examination Vital signs: Vital Signs Pulse Resp Pulse Ox 108 H 14 95 12/06/20 13:33 12/06/20 13:33 12/06/20 13:33 General appearance: no acute distress Eyes: non-icteric ENT: oropharynx moist Neck: supple, no lymphadenopathy, no JVD Effort: mildly labored Ascultation: Bilateral: diminished breath sounds Cardiovascular: regular rate and rhythm, other (S1,S2) Gastrointestinal: normoactive bowel sounds, soft, non-tender Integumentary: normal Extremities: no cyanosis, no edema, pulses normal Musculoskeletal: no deformities normal mental status, non-focal exam mood appropriate, affect normal Results - Laboratory Findings CBC and BMP: 12/07/20 02:12 12/07/20 02:12 PT/INR, D-dimer D-Dimer 185.58 ng/mlDDU (0-234) 12/06/20 15:24 Abnormal lab findings: Abnormal Labs 12/06/20 12/06/20 12/06/20 14:04 14:04 15:24 RBC 3.57 L Hgb 8.8 L Hct 27.3 L MCV 76 L MCH 25 L [place] % (Auto) 8.5 H Sodium 136 L Glucose 149 H POC Glucose Hemoglobin A1c Calcium Iron Lactate Dehydrogenase 418 H C-Reactive Protein 7.10 H Total Protein 8.6 H Albumin 2.9 L 12/07/20 12/07/20 12/07/20 02:12 02:12 02:12 RBC 3.61 L Hgb 9.2 L Hct 27.8 L MCV 77 L MCH 26 L [place] % (Auto) 9.4 H Sodium Glucose 123 H POC Glucose Hemoglobin A1c 8.2 H Calcium 8.3 L Iron Lactate Dehydrogenase C-Reactive Protein Total Protein 8.3 H Albumin 3.2 L 12/07/20 12/07/20 12/07/20 07:28 07:48 11:48 RBC Hgb Hct MCV MCH [place] % (Auto) Sodium Glucose POC Glucose 290 H 217 H Hemoglobin A1c Calcium Iron 22 L Lactate Dehydrogenase C-Reactive Protein Total Protein Albumin 12/07/20 12/07/20 12/08/20 16:46 22:36 08:50 RBC Hgb Hct MCV MCH [place] % (Auto) Sodium Glucose POC Glucose 203 H 189 H 293 H Hemoglobin A1c Calcium Iron Lactate Dehydrogenase C-Reactive Protein Total Protein Albumin 12/08/20 11:35 RBC Hgb Hct MCV MCH [place] % (Auto) Sodium Glucose POC Glucose 360 H Hemoglobin A1c Calcium Iron Lactate Dehydrogenase C-Reactive Protein Total Protein Albumin - Diagnostic Findings Chest x-ray: image reviewed CT scan - chest: image reviewed Assessment and Plan Sepsis with acute hypoxic respiratory failure Bilateral pneumonia, worsening GGO on chest imaging CHF (congestive heart failure) Person under investigation for COVID-19 HIV (human immunodeficiency virus infection) T2DM (type 2 diabetes mellitus) Anemia, microcytic -Get ABG, titrate supplemental oxygen to keep SpO2 89-92% -Get ABG to assess degree of hypoxia and acid base balance -Differentials of GGO include viral pneumonia, heart failure, atypical pneumonia, collagen vascular disorders with lung involvement -Get transthoracic echocardiogram, get BNP, DELFINO with reflex -Agree with antibiotics, de-escalate per ID. On Cefepime and Doxycycline -VTE prophylaxis -Chronic home medications- on ART -Accucheck with glycemic control, target blood glucose <180mg/dL; avoid hypoglycemia -Gentle IV hydration -Supportive transfusions as clinically indicated. Keep Hgb >7g/dL Thank you fro [facility] consult. Will follow
[2020-12-08] MEDS: CEFEPIME/NS 2 GM/100 ML 2 GM/100 ML BAG IV SCH ×2 (19:06→23:10)
[2020-12-08] MEDS: DOXYCYCLINE 100 MG CAP PO SCH ×2 (19:06→23:11)
[2020-12-08] MEDS: ZOLPIDEM 5 MG TAB PO PRN (23:10)
[2020-12-08] MEDS: ENOXAPARIN 40 MG/0.4 ML INJ SUB-Q SCH (23:10)
[2020-12-08] MEDS: oxyCODONE /ACETAMINOPHEN 5-325MG TAB PO PRN (23:49)
--- NOTE | 2020-12-09 08:12 | Progress Note ---
Assessment and Plan Assessment and plan: (1) Sepsis with acute hypoxic respiratory failure Current Visit: Yes Status: Acute Qualifiers: Severe sepsis shock status: unspecified Plan to address problem: Supplemental oxygen and keep the oxygen saturations above 92 Possible Covid pneumonia Treat for bilateral pneumonia and Covid pneumonia (2) Bilateral pneumonia Current Visit: Yes Status: Acute Plan to address problem: Treated as community-acquired pneumonia Coronavirus PCR requested IV Decadron initiated ID consult requested (3) CHF (congestive heart failure) Current Visit: No Status: Chronic Qualifiers: Heart failure type: combined systolic and diastolic Plan to address problem: Cardiogram for ejection fraction IV Lasix 40 mg every 24 (4) Person under investigation for COVID-19 Current Visit: Yes Status: Acute Plan to address problem: Coronavirus PCR requested IV Decadron initiated Zinc vitamin C and vitamin D initiated (5) HIV (human immunodeficiency virus infection) Current Visit: Yes Status: Chronic Qualifiers: HIV symptom status: asymptomatic, with no history of HIV-related illness Qualified Code(s): Z21 - Asymptomatic human immunodeficiency virus [HIV] inf ection status Plan to address problem: Patient on Zithromax (6) T2DM (type 2 diabetes mellitus) Current Visit: Yes Status: Chronic Qualifiers: 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 Plan to address problem: Check hemoglobin A1c Accu-Cheks AC at bedtime Coverage as per moderate dose sliding scale Continue Metformin (7) DVT prophylaxis Current Visit: Yes Status: Acute Plan to address problem: On Lovenox and GI prophylaxis (8) Anemia Current Visit: Yes Status: Chronic Qualifiers: Anemia type: iron deficiency Plan to address problem: Probable iron deficiency anemia: Check iron levels B12 and folic acid (9) DVT prophylaxis Current Visit: No Status: Acute Plan to address problem: Lovenox and GI prophylaxis 12/07/2020 -COVID-19 test is pending -Continue with IV antibiotics for now, follow procalcitonin level -ID consulted. -Patient's hemoglobin A1c is 8.2 -HIV; patient will follow with ID 12/08/2020 -CTA showed worsening of her groundglass opacities -COVID-19 test was negative -ID consulted and recommend to continue with antibiotics for now -Patient is on her HIV medications -Patient will oxygen saturation dropped to 85% on ambulation and patient require oxygen at discharge -I put a consult for pulmonary 12/09/2020 -Patient's proBNP is normal, pulmonary ordered echo. Patient states she has history of CHF and told me she was diagnosed in this hospital but I check her r ecords and there is no echo report. -Home oxygen arranged. History Interval history: Patient was seen and evaluated this morning Patient states she is breathing better Hospitalist Physical - Physical exam Narrative exam: Not in cardiopulmonary distress. The patient appeared well nourished and normally developed. Vital signs as documented. Head exam is unremarkable. No scleral icterus . Neck is without jugular venous distension, thyromegaly, or carotid bruits. Lungs scattered wheezing. Cardiac exam reveals regular rate and Rhythm. Abdominal exam reveals normal bowel sounds, nontender, no organomegaly. Extremities are nonedematous and both femoral and pedal pulses are normal. 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 No focal weakness. - Constitutional Vitals: Temp Pulse Resp BP Pulse Ox 98.4 F 96 H 16 115/72 99 12/09/20 06:00 12/09/20 06:00 12/09/20 06:00 12/09/20 06:00 12/08/20 21:25 General appearance: Present: mild distress, well-nourished HEART Score - HEART Score Troponin: Troponin T < 0.010 ng/mL (0.00-0.029) 12/06/20 14:04 Results - Labs CBC & Chem 7: 12/07/20 02:12 12/07/20 02:12 Labs: Laboratory Last Values WBC 4.6 K/mm3 (4.5-11.0) 12/07/20 02:12 RBC 3.61 M/mm3 (3.65-5.03) L 12/07/20 02:12 Hgb 9.2 gm/dl (10.1-14.3) L 12/07/20 02:12 Hct 27.8 % (30.3-42.9) L 12/07/20 02:12 MCV 77 fl (79-97) L 12/07/20 02:12 MCH 26 pg (28-32) L 12/07/20 02:12 MCHC 33 % (30-34) 12/07/20 02:12 RDW 14.1 % (13.2-15.2) 12/07/20 02:12 Plt Count 378 K/mm3 (140-440) 12/07/20 02:12 Lymph % (Auto) 30.9 % (13.4-35.0) 12/07/20 02:12 [place] % (Auto) 9.4 % (0.0-7.3) H 12/07/20 02:12 Eos % (Auto) 1.4 % (0.0-4.3) 12/07/20 02:12 Baso % (Auto) 0.6 % (0.0-1.8) 12/07/20 02:12 Lymph # (Auto) 1.4 K/mm3 (1.2-5.4) 12/07/20 02:12 [place] # (Auto) 0.4 K/mm3 (0.0-0.8) 12/07/20 02:12 Eos # (Auto) 0.1 K/mm3 (0.0-0.4) 12/07/20 02:12 Baso # (Auto) 0.0 K/mm3 (0.0-0.1) 12/07/20 02:12 Seg Neutrophils % 57.7 % (40.0-70.0) 12/07/20 02:12 Seg Neutrophils # 2.7 K/mm3 (1.8-7.7) 12/07/20 02:12 D-Dimer 185.58 ng/mlDDU (0-234) 12/06/20 15:24 ABG pH 7.400 (7.320-7.450) 12/08/20 16:18 POC ABG pCO2 32.1 mmHg (32.0-48.0) 12/08/20 16:18 POC ABG pO2 85.3 mmHg (83-108) 12/08/20 16:18 POC ABG HCO3 19.4 12/08/20 16:18 ABG O2 Saturation 96.4 (0-100) 12/08/20 16:18 POC ABG Base Excess -4.7 12/08/20 16:18 ABG Hemoglobin 9.4 (12.0-17.5) L 12/08/20 16:18 ABG Oxyhemoglobin 96.0 (94-98) 12/08/20 16:18 ABG Methemoglobin 0 (0.0-1.5) 12/08/20 16:18 ABG Sodium 132.7 mmol/L (136.0-145.0) L 12/08/20 16:18 ABG Potassium 4.4 mmol/L (3.40-4.50) 12/08/20 16:18 ABG Chloride 101.0 mmol/L (98-107) 12/08/20 16:18 ABG Glucose 303 mg/dL (65-95) H 12/08/20 16:18 Carboxyhemoglobin 0.4 (0.5-1.5) L 12/08/20 16:18 FiO2 % 28.0 12/08/20 16:18 Sodium 137 mmol/L (137-145) 12/07/20 02:12 Potassium 4.4 mmol/L (3.6-5.0) 12/07/20 02:12 Chloride 100.6 mmol/L (98-107) 12/07/20 02:12 Carbon Dioxide 24 mmol/L (22-30) 12/07/20 02:12 Anion Gap 17 mmol/L 12/07/20 02:12 BUN 12 mg/dL (7-17) 12/07/20 02:12 Creatinine 0.7 mg/dL (0.6-1.2) 12/07/20 02:12 Estimated GFR > 60 ml/min 12/07/20 02:12 BUN/Creatinine Ratio 17 % 12/07/20 02:12 Glucose 123 mg/dL (65-100) H 12/07/20 02:12 POC Glucose 300 mg/dL (70-105) H 12/08/20 21:08 Hemoglobin A1c 8.2 % (4-6) H 12/07/20 02:12 Lactic Acid 1.10 mmol/L (0.7-2.0) 12/06/20 23:55 Calcium 8.3 mg/dL (8.4-10.2) L 12/07/20 02:12 Iron 22 ug/dL (37-170) L 12/07/20 07:28 TIBC 341 mcg/dL (250-450) 12/07/20 07:28 % Saturation 6.45 % 12/07/20 07:28 Transferrin 292 mg/dl (192-382) 12/07/20 07:28 Ferritin 40.7 ng/mL (10.0-200.0) 12/06/20 15:24 Total Bilirubin 0.40 mg/dL (0.1-1.2) 12/07/20 02:12 AST 26 units/L (5-40) 12/07/20 02:12 ALT 9 units/L (7-56) 12/07/20 02:12 Alkaline Phosphatase 94 units/L (35-129) 12/07/20 02:12 Lactate Dehydrogenase 418 units/L (91-180) H 12/06/20 15:24 Troponin T < 0.010 ng/mL (0.00-0.029) 12/06/20 14:04 C-Reactive Protein 7.10 mg/dL (0.00-1.30) H 12/06/20 15:24 NT-Pro-B Natriuret Pep 150.7 pg/mL (0-450) 12/09/20 00:43 Total Protein 8.3 g/dL (6.3-8.2) H 12/07/20 02:12 Albumin 3.2 g/dL (3.9-5) L 12/07/20 02:12 Albumin/Globulin Ratio 0.6 % 12/07/20 02:12 Vitamin B12 304.1 pg/mL (211-911) 12/07/20 07:28 Procalcitonin < 0.05 ng/mL (<0.15) 12/06/20 15:24 HCG, Qual Negative (Negative) 12/06/20 14:04 Arterial Blood Glucose 303 mg/dL (65-95) H 12/08/20 16:18 Arterial Blood Ionized Calcium 4.9 mg/dL (4.6-5.3) 12/08/20 16:18 Urine Color Yellow (Yellow) 12/07/20 Unknown Urine Turbidity Clear (Clear) 12/07/20 Unknown Urine pH 7.0 (5.0-7.0) 12/07/20 Unknown Ur Specific [place] 1.017 (1.003-1.030) 12/07/20 Unknown Urine Protein <15 mg/dl mg/dL (Negative) 12/07/20 Unknown Urine Glucose (UA) 150 mg/dL (Negative) 12/07/20 Unknown Urine Ketones Neg mg/dL (Negative) 12/07/20 Unknown Urine Blood Neg (Negative) 12/07/20 Unknown Urine Nitrite Neg (Negative) 12/07/20 Unknown Urine Bilirubin Neg (Negative) 12/07/20 Unknown Urine Urobilinogen 2.0 mg/dL (<2.0) 12/07/20 Unknown Ur Leukocyte Esterase Neg (Negative) 12/07/20 Unknown Urine WBC (Auto) < 1.0 /HPF (0.0-6.0) 12/07/20 Unknown Urine RBC (Auto) 1.0 /HPF (0.0-6.0) 12/07/20 Unknown U Epithel Cells (Auto) 6.0 /HPF (0-13.0) 12/07/20 Unknown Coronavirus (PCR) Negative (Negative) 12/06/20 08:46 Microbiology: Microbiology 12/06/20 14:04 Peripheral/Venous Blood Culture - Preliminary NO GROWTH AFTER 48 HOURS 12/06/20 14:04 Peripheral/Venous Blood Culture - Preliminary NO GROWTH AFTER 48 HOURS Santiago/IV: Voiding Method Toilet Active Medications - Current Medications Current Medications: Generic Name Dose Route Start Last Admin Trade Name Freq PRN Reason Stop Dose Admin Acetaminophen 650 mg 12/06/20 21:36 Acetaminophen 325 Mg Tab PO Q4H PRN Pain MILD(1-3)/Fever >100.5/RODRIGUES Albuterol/Ipratropium 1 ampul 12/07/20 08:00 12/08/20 21:21 Ipratropium/Albuterol Sulfate 3 Ml Ampul.Neb IH 1 ampul TIDRT DARYA Administration Ascorbic Acid 1,000 mg 12/06/20 22:00 12/08/20 23:10 Ascorbic Acid 500 Mg Tab PO 1,000 mg BID DARYA Administration Cholecalciferol 5,000 unit 12/06/20 22:00 12/08/20 09:11 Cholecalciferol (Vit D3) 5,000 Unit Tab PO 5,000 unit DAILY DARYA Administration Darunavir 800 mg 12/07/20 16:00 12/08/20 09:10 Darunavir 800 Mg Tab PO 800 mg QDAY DARYA Administration Doxycycline Hyclate 100 mg 12/08/20 16:00 12/08/20 23:11 Doxycycline 100 Mg Cap PO 100 mg BID DARYA Administration Protocol Emtricitabine 200 mg 12/07/20 16:00 12/08/20 09:11 Emtricitabine 200 Mg Cap PO 200 mg QDAY DARYA Administration Enoxaparin Sodium 40 mg 12/06/20 22:00 12/08/20 23:10 Enoxaparin 40 Mg/0.4 Ml Inj SUB-Q 40 mg QDAY@2200 DARYA Administration Protocol Famotidine 20 mg 12/06/20 22:00 12/08/20 23:10 Famotidine 20 Mg Tab PO 20 mg BID DARYA Administration Guaifenesin 200 mg 12/06/20 23:59 12/07/20 00:42 Guaifenesin 100 Mg/5 Ml Oral Liqd PO 200 mg Q8H PRN Administration Cough Cefepime HCl 2 gm in 100 mls @ 200 mls/hr 12/08/20 16:00 12/08/20 23:10 Cefepime/Ns 2 Gm/100 Ml IV 200 mls/hr Q8H DARYA Administration Protocol Metformin HCl 500 mg 12/06/20 21:30 12/08/20 09:11 Metformin Xr 500mg Tab PO 500 mg QAMDIAB DARYA Administration Metoclopramide HCl 10 mg 12/06/20 21:36 Metoclopramide 10 Mg/2 Ml Inj IV Q6H PRN Nausea And Vomiting Ondansetron HCl 4 mg 12/06/20 21:21 Ondansetron 4 Mg Odt Tab PO Q8H PRN Nausea And Vomiting Ondansetron HCl 4 mg 12/06/20 21:36 Ondansetron 4 Mg/2 Ml Inj IV Q8H PRN Nausea And Vomiting Oxycodone/Acetaminophen 2 tab 12/07/20 18:00 12/08/20 23:49 Oxycodone /Acetaminophen 5-325mg Tab PO 2 tab Q6H PRN Administration Pain, Moderate (4-6) Ritonavir 100 mg 12/07/20 16:00 12/08/20 09:10 Ritonavir 100 Mg Tab PO 100 mg QDAY DARYA Administration Sodium Chloride 10 ml 12/06/20 22:00 12/08/20 23:11 Sodium Chloride 0.9% 10 Ml Flush Syringe IV 10 ml BID DARYA Administration Sodium Chloride 10 ml 12/06/20 21:36 Sodium Chloride 0.9% 10 Ml Flush Syringe IV PRN PRN LINE FLUSH Tenofovir Disoproxil Fumarate 300 mg 12/07/20 16:00 12/08/20 09:11 Tenofovir 300 Mg Tab PO 300 mg QDAY DARYA Administration Tramadol HCl 50 mg 12/06/20 21:21 Tramadol 50 Mg Tab PO Q8H PRN PAIN (4-6) Zinc Sulfate 220 mg 12/06/20 22:00 12/08/20 23:11 Zinc Sulfate 220 Mg Cap PO 220 mg BID DARYA Administration Zolpidem Tartrate 5 mg 12/07/20 22:00 12/08/20 23:10 Zolpidem 5 Mg Tab PO 5 mg QHS PRN Administration Sleep Nutrition/Malnutrition Assess - Dietary Evaluation Nutrition/Malnutrition Findings: Nutrition Notes Start: 12/07/20 15:58 Freq: Status: Active Protocol: Document 12/07/20 15:58 SATNAM (Rec: 12/07/20 15:59 SATNAM [id number]) Nutrition Notes Need for Assessment generated from: 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 Will assess upon further consult or LOS. Burn Absent Trauma Absent Minimum of two criteria No
--- NOTE | 2020-12-09 08:43 | Progress Note ---
Assessment and Plan Sepsis with acute hypoxic respiratory failure Bilateral pneumonia, worsening GGO on chest imaging CHF (congestive heart failure) Person under investigation for COVID-19 HIV (human immunodeficiency virus infection) T2DM (type 2 diabetes mellitus) Anemia, microcytic -Her echocardiogram in normal, discussed with Dr. Curtis In the setting of HIV will need induced sputum to r/o PJP, also get smears for AFB. Place PPD. Start Steroids If we are unable to get the induced sputum, will plan for bronchoscopy on Friday. - Continue with VTE prophylaxis -Chronic home medications- on ART -Accucheck with glycemic control, target blood glucose <180mg/dL; avoid hypoglycemia She needs better glycemic control, blood glucose is >200 -Gentle IV hydration -Supportive transfusions as clinically indicated. Keep Hgb >7g/dL Subjective Date of service: 12/09/20 Interval history: Follow up for Sepsis with acute hypoxic respiratory failure; Bilateral pneumo yayo, worsening GGO on chest imaging; HIV Seen and examined. Vitals, labs, medications, cahrt and imaging reviewed. She states she still has the tightness in her chest, and some shortness of breath but denies any hemoptysis. She was a smoker, about 1PPD for about 10 years. She however quit a few months ago because her breathing was getting worse. Objective Vital Signs - 12hr 12/08/20 12/09/20 12/09/20 21:25 00:00 06:00 Temperature 98.5 F 98.4 F Pulse Rate 109 H 96 H Pulse Rate [ 94 H Bilateral] Pulse Rate [ 94 H Posterior Bilateral Bases ] Pulse Rate [ 93 H Posterior Right Middle Lobe] Respiratory 16 Rate Respiratory 20 Rate [Bilateral ] Respiratory 16 Rate [Posterior Bilateral Bases] Respiratory 16 Rate [Posterior Right Middle Lobe] Blood Pressure 115/72 [Left] Blood Pressure 133/79 115/72 [Right] O2 Sat by Pulse 99 Oximetry Constitutional: no acute distress, alert Eyes: non-icteric ENT: oropharynx moist, other (oral candidiasis) Neck: supple, no lymphadenopathy, no JVD Effort: mildly labored Ascultation: Bilateral: diminished breath sounds Cardiovascular: regular rate and rhythm, other (S1,S2) Gastrointestinal: normoactive bowel sounds, soft, non-tender Integumentary: normal Extremities: no cyanosis, no edema, pulses normal Neurologic: normal mental status, non-focal exam Psychiatric: mood appropriate, affect normal CBC and BMP: 12/07/20 02:12 12/07/20 02:12 ABG, PT/INR, D-dimer: ABG ABG pH 7.400 (7.320-7.450) 12/08/20 16:18 POC ABG pCO2 32.1 mmHg (32.0-48.0) 12/08/20 16:18 POC ABG pO2 85.3 mmHg (83-108) 12/08/20 16:18 POC ABG HCO3 19.4 12/08/20 16:18 ABG O2 Saturation 96.4 (0-100) 12/08/20 16:18 PT/INR, D-dimer D-Dimer 185.58 ng/mlDDU (0-234) 12/06/20 15:24 Abnormal lab findings: Abnormal Labs 12/06/20 12/06/20 12/06/20 14:04 14:04 15:24 RBC 3.57 L Hgb 8.8 L Hct 27.3 L MCV 76 L MCH 25 L [place] % (Auto) 8.5 H ABG Hemoglobin ABG Sodium ABG Glucose Carboxyhemoglobin Sodium 136 L Glucose 149 H POC Glucose Hemoglobin A1c Calcium Iron Lactate Dehydrogenase 418 H C-Reactive Protein 7.10 H Total Protein 8.6 H Albumin 2.9 L Arterial Blood Glucose 12/07/20 12/07/20 12/07/20 02:12 02:12 02:12 RBC 3.61 L Hgb 9.2 L Hct 27.8 L MCV 77 L MCH 26 L [place] % (Auto) 9.4 H ABG Hemoglobin ABG Sodium ABG Glucose Carboxyhemoglobin Sodium Glucose 123 H POC Glucose Hemoglobin A1c 8.2 H Calcium 8.3 L Iron Lactate Dehydrogenase C-Reactive Protein Total Protein 8.3 H Albumin 3.2 L Arterial Blood Glucose 12/07/20 12/07/20 12/07/20 07:28 07:48 11:48 RBC Hgb Hct MCV MCH [place] % (Auto) ABG Hemoglobin ABG Sodium ABG Glucose Carboxyhemoglobin Sodium Glucose POC Glucose 290 H 217 H Hemoglobin A1c Calcium Iron 22 L Lactate Dehydrogenase C-Reactive Protein Total Protein Albumin Arterial Blood Glucose 12/07/20 12/07/20 12/08/20 16:46 22:36 08:50 RBC Hgb Hct MCV MCH [place] % (Auto) ABG Hemoglobin ABG Sodium ABG Glucose Carboxyhemoglobin Sodium Glucose POC Glucose 203 H 189 H 293 H Hemoglobin A1c Calcium Iron Lactate Dehydrogenase C-Reactive Protein Total Protein Albumin Arterial Blood Glucose 12/08/20 12/08/20 12/08/20 11:35 16:18 16:39 RBC Hgb Hct MCV MCH [place] % (Auto) ABG Hemoglobin 9.4 L ABG Sodium 132.7 L ABG Glucose 303 H Carboxyhemoglobin 0.4 L Sodium Glucose POC Glucose 360 H 288 H Hemoglobin A1c Calcium Iron Lactate Dehydrogenase C-Reactive Protein Total Protein Albumin Arterial Blood Glucose 303 H 12/08/20 21:08 RBC Hgb Hct MCV MCH [place] % (Auto) ABG Hemoglobin ABG Sodium ABG Glucose Carboxyhemoglobin Sodium Glucose POC Glucose 300 H Hemoglobin A1c Calcium Iron Lactate Dehydrogenase C-Reactive Protein Total Protein Albumin Arterial Blood Glucose Chest x-ray: image reviewed Allied health notes reviewed: nursing
[2020-12-09] MEDS: IPRATROPIUM/ALBUTEROL SULFATE 3 ML AMPUL.NEB IH SCH ×3 (09:52→20:11)
[2020-12-09] MEDS: ZINC SULFATE 220 MG CAP PO SCH ×2 (10:10→21:48)
[2020-12-09] MEDS: DOXYCYCLINE 100 MG CAP PO SCH ×2 (10:10→21:47)
[2020-12-09] MEDS: metFORMIN XR 500MG TAB PO SCH (10:10)
[2020-12-09] MEDS: EMTRICITABINE 200 MG CAP PO SCH (10:11)
[2020-12-09] MEDS: TENOFOVIR 300 MG TAB PO SCH (10:11)
[2020-12-09] MEDS: FAMOTIDINE 20 MG TAB PO SCH ×2 (10:11→21:48)
[2020-12-09] MEDS: RITONAVIR 100 MG TAB PO SCH (10:11)
[2020-12-09] MEDS: CHOLECALCIFEROL (VIT D3) 5,000 UNIT TAB PO SCH (10:12)
[2020-12-09] MEDS: DARUNAVIR 800 MG TAB PO SCH (10:12)
[2020-12-09] MEDS: CEFEPIME/NS 2 GM/100 ML 2 GM/100 ML BAG IV SCH ×2 (10:38→19:12)
[2020-12-09] MEDS: ASCORBIC ACID 500 MG TAB PO SCH ×2 (10:38→21:48)
--- NOTE | 2020-12-09 12:47 | Progress Note ---
Assessment and Plan Cultures: Blood culture 12/06/2020 no growth so far. A/P: 35 yo F PMHx HIV, Dm2, CHF admitted with SOB, myalgias. #Bilateral PNA: CT shows bilateral groundglass opacities. Admitted with SOB and myalgias. Was seen here 3 weeks previously and tested negative for COVID then. CT without PE, but with worsening GGO bilaterally. Normal procalcitonin. Other viral etiology? Doubt opportunistic infection given historical excellent control of HIV. However patient noted with oral candidiasis no recent CD4 viral load. Noted mild hypoxia. PCP with CD4 over usually is unlikely. She does not have any pets, and lives in the city. No recent travel. no travel to the [place]. #Acute hypoxia: On 2 L nasal cannula, likely due to pneumonia. Doubt volume overload, BNP is low. #HIV: well controlled with Truvada, norvir, and darunavir. Has outpatient ID. Viral load was undetectable 3 months ago. She denies missing ART. #Oral candidiasis Recs: -Induced sputum for PCP -Check LDH -Start Bactrim DS 2 tablets p.o. 3 times daily to cover empirically for PCP pneumonia. Even though it is PCP is unlikely with CD4>200, given the presence of oral candidiasis, lack of clinical improvement and hypoxia will cover empirically for PCP -Monitor hypoxia which is improving -Start fluconazole 200 g p.o. once a day -Follow-up fungitell, follow-up flu/RSV -continue home Truvada, Norvir, darunavir. -Stop doxycycline and cefepime, procalcitonin is low will follow Desiree Brown MD [facility] ([facility]) Office [phone] Subjective Date of service: 12/09/20 Principal diagnosis: HIV pneumonia Interval history: Patient reports feeling sick still complaining of shortness of breath and cough. She is on 2 L nasal cannula sats over 99. No fever overnight complaining of abdominal pain due to coughing spells. Objective - Exam Narrative Exam: General appearance: Alert in NAD pleasant Eyes: anicteric sclerae, moist conjunctivae; no lid-lag; PERRLA HENT: Normocephalic, Atraumatic; normal external ears, nares open, oropharynx whitish patches Neck: supple, tracheal midline, no JVD Lungs: Bibasilar crackles CV: RRR no murmur Abdomen: Soft, non-tender; no masses or hepatosplenomegaly Extremities: no edema, no cyanosis Skin: No rash. Psych: no agitated Neuro: alert and oriented x 3. Moving all extermities - Constitutional Vitals: Vital Signs Temp Pulse Resp BP Pulse Ox 97.8 F 81 18 122/82 99 12/09/20 10:53 12/09/20 10:53 12/09/20 10:53 12/09/20 10:53 12/09/20 10:53 Temperature -Last 24 Hours Temperature 97.8 F Temperature 98.4 F Temperature 98.5 F Temperature 98.5 F - Labs CBC & Chem 7: 12/07/20 02:12 12/07/20 02:12 Labs: Abnormal lab results 12/08/20 12/08/20 12/08/20 Range/Units 16:18 16:39 21:08 ABG Hemoglobin 9.4 L (12.0-17.5) ABG Sodium 132.7 L (136.0-145.0) mmol/L ABG Glucose 303 H (65-95) mg/dL Carboxyhemoglobin 0.4 L (0.5-1.5) POC Glucose 288 H 300 H (70-105) mg/dL Arterial Blood Glucose 303 H (65-95) mg/dL
[2020-12-09] MEDS: FLUCONAZOLE 200 MG TAB PO SCH (14:05)
[2020-12-09] MEDS: methylPREDNISolone Sod Succinate 125 MG/2 ML INJ IV SCH ×2 (19:12→21:49)
[2020-12-09] MEDS: SULFAMETHOXAZOLE/TRIMETHOPRIM 800/160MG DS TAB PO SCH ×2 (19:12→21:48)
[2020-12-09] MEDS: guaiFENesin 100 MG/5 ML ORAL LIQD PO PRN (21:47)
[2020-12-09] MEDS: ENOXAPARIN 40 MG/0.4 ML INJ SUB-Q SCH (21:47)
[2020-12-09] MEDS: oxyCODONE /ACETAMINOPHEN 5-325MG TAB PO PRN (21:48)
[2020-12-09] MEDS: INSULIN LISPRO 100 UNIT/ML SUB-Q SCH (22:05)
[2020-12-10] MEDS: CEFEPIME/NS 2 GM/100 ML 2 GM/100 ML BAG IV SCH ×2 (01:15→08:27)
[2020-12-10] MEDS: SULFAMETHOXAZOLE/TRIMETHOPRIM 800/160MG DS TAB PO SCH ×3 (06:01→22:03)
[2020-12-10] MEDS: methylPREDNISolone Sod Succinate 125 MG/2 ML INJ IV SCH (06:01)
[2020-12-10] MEDS: IPRATROPIUM/ALBUTEROL SULFATE 3 ML AMPUL.NEB IH SCH ×3 (07:58→20:15)
[2020-12-10] MEDS: INSULIN LISPRO 100 UNIT/ML SUB-Q SCH ×4 (08:27→22:02)
[2020-12-10] MEDS: metFORMIN XR 500MG TAB PO SCH (08:27)
--- NOTE | 2020-12-10 09:02 | Progress Note ---
Assessment and Plan Assessment and plan: (1) Sepsis with acute hypoxic respiratory failure Current Visit: Yes Status: Acute Qualifiers: Severe sepsis shock status: unspecified Plan to address problem: Supplemental oxygen and keep the oxygen saturations above 92 Possible Covid pneumonia Treat for bilateral pneumonia and Covid pneumonia (2) Bilateral pneumonia Current Visit: Yes Status: Acute Plan to address problem: Treated as community-acquired pneumonia Coronavirus PCR requested IV Decadron initiated ID consult requested (3) CHF (congestive heart failure) Current Visit: No Status: Chronic Qualifiers: Heart failure type: combined systolic and diastolic Plan to address problem: Cardiogram for ejection fraction IV Lasix 40 mg every 24 (4) Person under investigation for COVID-19 Current Visit: Yes Status: Acute Plan to address problem: Coronavirus PCR requested IV Decadron initiated Zinc vitamin C and vitamin D initiated (5) HIV (human immunodeficiency virus infection) Current Visit: Yes Status: Chronic Qualifiers: HIV symptom status: asymptomatic, with no history of HIV-related illness Qualified Code(s): Z21 - Asymptomatic human immunodeficiency virus [HIV] inf ection status Plan to address problem: Patient on Zithromax (6) T2DM (type 2 diabetes mellitus) Current Visit: Yes Status: Chronic Qualifiers: 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 Plan to address problem: Check hemoglobin A1c Accu-Cheks AC at bedtime Coverage as per moderate dose sliding scale Continue Metformin (7) DVT prophylaxis Current Visit: Yes Status: Acute Plan to address problem: On Lovenox and GI prophylaxis (8) Anemia Current Visit: Yes Status: Chronic Qualifiers: Anemia type: iron deficiency Plan to address problem: Probable iron deficiency anemia: Check iron levels B12 and folic acid (9) DVT prophylaxis Current Visit: No Status: Acute Plan to address problem: Lovenox and GI prophylaxis 12/07/2020 -COVID-19 test is pending -Continue with IV antibiotics for now, follow procalcitonin level -ID consulted. -Patient's hemoglobin A1c is 8.2 -HIV; patient will follow with ID 12/08/2020 -CTA showed worsening of her groundglass opacities -COVID-19 test was negative -ID consulted and recommend to continue with antibiotics for now -Patient is on her HIV medications -Patient will oxygen saturation dropped to 85% on ambulation and patient require oxygen at discharge -I put a consult for pulmonary 12/09/2020 -Patient's proBNP is normal, pulmonary ordered echo. Patient states she has history of CHF and told me she was diagnosed in this hospital but I check her r ecords and there is no echo report. -Home oxygen arranged. 12/10/2020 -Echo showed no CHF. Patient was seen by ID and started the patient on Bactrim for suspected PCP, and fluconazole for oral candidiasis. We going to follow Fungitell and induced sputum for PCP. Patient has hyperglycemia and added 15 units of Lantus, change Solu-Medrol to prednisone 40 mg daily. Disposition is per pulmonary and ID recommendation History Interval history: Patient was seen and evaluated this morning Patient states she is breathing better Hospitalist Physical - Physical exam Narrative exam: Not in cardiopulmonary distress. The patient appeared well nourished and normally developed. Vital signs as documented. Head exam is unremarkable. Patient has oral thrush No scleral icterus . Neck is without jugular venous distension, thyromegaly, or carotid bruits. Lungs scattered wheezing. Cardiac exam reveals regular rate and Rhythm. Abdominal exam reveals normal bowel sounds, nontender, no organomegaly. Extremities are nonedematous and both femoral and pedal pulses are normal. 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 No focal weakness. - Constitutional Vitals: Temp Pulse Resp BP Pulse Ox 98.4 F 87 16 136/81 92 12/09/20 21:38 12/10/20 07:58 12/10/20 07:58 12/09/20 21:38 12/10/20 07:58 General appearance: Present: mild distress, well-nourished HEART Score - HEART Score Troponin: Troponin T < 0.010 ng/mL (0.00-0.029) 12/06/20 14:04 Results - Labs CBC & Chem 7: 12/07/20 02:12 12/07/20 02:12 Labs: Laboratory Last Values WBC 4.6 K/mm3 (4.5-11.0) 12/07/20 02:12 RBC 3.61 M/mm3 (3.65-5.03) L 12/07/20 02:12 Hgb 9.2 gm/dl (10.1-14.3) L 12/07/20 02:12 Hct 27.8 % (30.3-42.9) L 12/07/20 02:12 MCV 77 fl (79-97) L 12/07/20 02:12 MCH 26 pg (28-32) L 12/07/20 02:12 MCHC 33 % (30-34) 12/07/20 02:12 RDW 14.1 % (13.2-15.2) 12/07/20 02:12 Plt Count 378 K/mm3 (140-440) 12/07/20 02:12 Lymph % (Auto) 30.9 % (13.4-35.0) 12/07/20 02:12 [place] % (Auto) 9.4 % (0.0-7.3) H 12/07/20 02:12 Eos % (Auto) 1.4 % (0.0-4.3) 12/07/20 02:12 Baso % (Auto) 0.6 % (0.0-1.8) 12/07/20 02:12 Lymph # (Auto) 1.4 K/mm3 (1.2-5.4) 12/07/20 02:12 [place]arr # (Auto) 0.4 K/mm3 (0.0-0.8) 12/07/20 02:12 Eos # (Auto) 0.1 K/mm3 (0.0-0.4) 12/07/20 02:12 Baso # (Auto) 0.0 K/mm3 (0.0-0.1) 12/07/20 02:12 Seg Neutrophils % 57.7 % (40.0-70.0) 12/07/20 02:12 Seg Neutrophils # 2.7 K/mm3 (1.8-7.7) 12/07/20 02:12 D-Dimer 185.58 ng/mlDDU (0-234) 12/06/20 15:24 ABG pH 7.400 (7.320-7.450) 12/08/20 16:18 POC ABG pCO2 32.1 mmHg (32.0-48.0) 12/08/20 16:18 POC ABG pO2 85.3 mmHg (83-108) 12/08/20 16:18 POC ABG HCO3 19.4 12/08/20 16:18 ABG O2 Saturation 96.4 (0-100) 12/08/20 16:18 POC ABG Base Excess -4.7 12/08/20 16:18 ABG Hemoglobin 9.4 (12.0-17.5) L 12/08/20 16:18 ABG Oxyhemoglobin 96.0 (94-98) 12/08/20 16:18 ABG Methemoglobin 0 (0.0-1.5) 12/08/20 16:18 ABG Sodium 132.7 mmol/L (136.0-145.0) L 12/08/20 16:18 ABG Potassium 4.4 mmol/L (3.40-4.50) 12/08/20 16:18 ABG Chloride 101.0 mmol/L (98-107) 12/08/20 16:18 ABG Glucose 303 mg/dL (65-95) H 12/08/20 16:18 Carboxyhemoglobin 0.4 (0.5-1.5) L 12/08/20 16:18 FiO2 % 28.0 12/08/20 16:18 Sodium 137 mmol/L (137-145) 12/07/20 02:12 Potassium 4.4 mmol/L (3.6-5.0) 12/07/20 02:12 Chloride 100.6 mmol/L (98-107) 12/07/20 02:12 Carbon Dioxide 24 mmol/L (22-30) 12/07/20 02:12 Anion Gap 17 mmol/L 12/07/20 02:12 BUN 12 mg/dL (7-17) 12/07/20 02:12 Creatinine 0.7 mg/dL (0.6-1.2) 12/07/20 02:12 Estimated GFR > 60 ml/min 12/07/20 02:12 BUN/Creatinine Ratio 17 % 12/07/20 02:12 Glucose 123 mg/dL (65-100) H 12/07/20 02:12 POC Glucose 394 mg/dL (70-105) H 12/09/20 21:43 Hemoglobin A1c 8.2 % (4-6) H 12/07/20 02:12 Lactic Acid 1.10 mmol/L (0.7-2.0) 12/06/20 23:55 Calcium 8.3 mg/dL (8.4-10.2) L 12/07/20 02:12 Iron 22 ug/dL (37-170) L 12/07/20 07:28 TIBC 341 mcg/dL (250-450) 12/07/20 07:28 % Saturation 6.45 % 12/07/20 07:28 Transferrin 292 mg/dl (192-382) 12/07/20 07:28 Ferritin 40.7 ng/mL (10.0-200.0) 12/06/20 15:24 Total Bilirubin 0.40 mg/dL (0.1-1.2) 12/07/20 02:12 AST 26 units/L (5-40) 12/07/20 02:12 ALT 9 units/L (7-56) 12/07/20 02:12 Alkaline Phosphatase 94 units/L (35-129) 12/07/20 02:12 Lactate Dehydrogenase 273 units/L (91-180) H 12/09/20 13:32 Troponin T < 0.010 ng/mL (0.00-0.029) 12/06/20 14:04 C-Reactive Protein 7.10 mg/dL (0.00-1.30) H 12/06/20 15:24 NT-Pro-B Natriuret Pep 150.7 pg/mL (0-450) 12/09/20 00:43 Total Protein 8.3 g/dL (6.3-8.2) H 12/07/20 02:12 Albumin 3.2 g/dL (3.9-5) L 12/07/20 02:12 Albumin/Globulin Ratio 0.6 % 12/07/20 02:12 Vitamin B12 304.1 pg/mL (211-911) 12/07/20 07:28 Procalcitonin < 0.05 ng/mL (<0.15) 12/06/20 15:24 HCG, Qual Negative (Negative) 12/06/20 14:04 Arterial Blood Glucose 303 mg/dL (65-95) H 12/08/20 16:18 Arterial Blood Ionized Calcium 4.9 mg/dL (4.6-5.3) 12/08/20 16:18 Urine Color Yellow (Yellow) 12/07/20 Unknown Urine Turbidity Clear (Clear) 12/07/20 Unknown Urine pH 7.0 (5.0-7.0) 12/07/20 Unknown Ur Specific [place] 1.017 (1.003-1.030) 12/07/20 Unknown Urine Protein <15 mg/dl mg/dL (Negative) 12/07/20 Unknown Urine Glucose (UA) 150 mg/dL (Negative) 12/07/20 Unknown Urine Ketones Neg mg/dL (Negative) 12/07/20 Unknown Urine Blood Neg (Negative) 12/07/20 Unknown Urine Nitrite Neg (Negative) 12/07/20 Unknown Urine Bilirubin Neg (Negative) 12/07/20 Unknown Urine Urobilinogen 2.0 mg/dL (<2.0) 12/07/20 Unknown Ur Leukocyte Esterase Neg (Negative) 12/07/20 Unknown Urine WBC (Auto) < 1.0 /HPF (0.0-6.0) 12/07/20 Unknown Urine RBC (Auto) 1.0 /HPF (0.0-6.0) 12/07/20 Unknown U Epithel Cells (Auto) 6.0 /HPF (0-13.0) 12/07/20 Unknown Coronavirus (PCR) Negative (Negative) 12/06/20 08:46 Microbiology: Microbiology 12/06/20 14:04 Peripheral/Venous Blood Culture - Preliminary NO GROWTH AFTER 72 HOURS 12/06/20 14:04 Peripheral/Venous Blood Culture - Preliminary NO GROWTH AFTER 72 HOURS 12/06/20 Unknown Urine,Clean Catch Urine Culture - Final Santiago/IV: Voiding Method Toilet Active Medications - Current Medications Current Medications: Generic Name Dose Route Start Last Admin Trade Name Freq PRN Reason Stop Dose Admin Acetaminophen 650 mg 12/06/20 21:36 Acetaminophen 325 Mg Tab PO Q4H PRN Pain MILD(1-3)/Fever >100.5/RODRIGUES Albuterol/Ipratropium 1 ampul 12/07/20 08:00 12/10/20 07:58 Ipratropium/Albuterol Sulfate 3 Ml Ampul.Neb IH 1 ampul TIDRT DARYA Administration Ascorbic Acid 1,000 mg 12/06/20 22:00 12/09/20 21:48 Ascorbic Acid 500 Mg Tab PO 1,000 mg BID DARYA Administration Cholecalciferol 5,000 unit 12/06/20 22:00 12/09/20 10:12 Cholecalciferol (Vit D3) 5,000 Unit Tab PO 5,000 unit DAILY DARYA Administration Darunavir 800 mg 12/07/20 16:00 12/09/20 10:12 Darunavir 800 Mg Tab PO 800 mg QDAY DARYA Administration Doxycycline Hyclate 100 mg 12/08/20 16:00 12/09/20 21:47 Doxycycline 100 Mg Cap PO 100 mg BID DARYA Administration Protocol Emtricitabine 200 mg 12/07/20 16:00 12/09/20 10:11 Emtricitabine 200 Mg Cap PO 200 mg QDAY DARYA Administration Enoxaparin Sodium 40 mg 12/06/20 22:00 12/09/20 21:47 Enoxaparin 40 Mg/0.4 Ml Inj SUB-Q 40 mg QDAY@2200 DARYA Administration Protocol Famotidine 20 mg 12/06/20 22:00 12/09/20 21:48 Famotidine 20 Mg Tab PO 20 mg BID DARYA Administration Fluconazole 200 mg 12/09/20 13:00 12/09/20 14:05 Fluconazole 200 Mg Tab PO 200 mg QDAY DARYA Administration Protocol Guaifenesin 200 mg 12/06/20 23:59 12/09/20 21:47 Guaifenesin 100 Mg/5 Ml Oral Liqd PO 200 mg Q8H PRN Administration Cough Cefepime HCl 2 gm in 100 mls @ 200 mls/hr 12/08/20 16:00 12/10/20 08:27 Cefepime/Ns 2 Gm/100 Ml IV 200 mls/hr Q8H DARYA Administration Protocol Insulin Human Lispro 0 unit 12/09/20 22:00 12/10/20 08:27 Insulin Lispro 100 Unit/Ml SUB-Q 8 unit ACHS DARYA Administration Protocol Metformin HCl 500 mg 12/06/20 21:30 12/10/20 08:27 Metformin Xr 500mg Tab PO 500 mg QAMDIAB DARYA Administration Methylprednisolone Sodium Succinate 60 mg 12/09/20 14:00 12/10/20 06:01 Methylprednisolone Sod Succinate 125 Mg/2 Ml Inj IV 60 mg Q8HR DARYA Administration Metoclopramide HCl 10 mg 12/06/20 21:36 Metoclopramide 10 Mg/2 Ml Inj IV Q6H PRN Nausea And Vomiting Ondansetron HCl 4 mg 12/06/20 21:21 Ondansetron 4 Mg Odt Tab PO Q8H PRN Nausea And Vomiting Ondansetron HCl 4 mg 12/06/20 21:36 Ondansetron 4 Mg/2 Ml Inj IV Q8H PRN Nausea And Vomiting Oxycodone/Acetaminophen 2 tab 12/07/20 18:00 12/09/20 21:48 Oxycodone /Acetaminophen 5-325mg Tab PO 2 tab Q6H PRN Administration Pain, Moderate (4-6) Ritonavir 100 mg 12/07/20 16:00 12/09/20 10:11 Ritonavir 100 Mg Tab PO 100 mg QDAY DARYA Administration Sodium Chloride 10 ml 12/06/20 22:00 12/09/20 21:49 Sodium Chloride 0.9% 10 Ml Flush Syringe IV 10 ml BID DARYA Administration Sodium Chloride 10 ml 12/06/20 21:36 Sodium Chloride 0.9% 10 Ml Flush Syringe IV PRN PRN LINE FLUSH Tenofovir Disoproxil Fumarate 300 mg 12/07/20 16:00 12/09/20 10:11 Tenofovir 300 Mg Tab PO 300 mg QDAY DARYA Administration Tramadol HCl 50 mg 12/06/20 21:21 Tramadol 50 Mg Tab PO Q8H PRN PAIN (4-6) Trimethoprim/Sulfamethoxazole 2 each 12/09/20 14:00 12/10/20 06:01 Sulfamethoxazole/Trimethoprim 800/160mg Ds Tab PO 2 each Q8HR DARYA Administration Protocol Zinc Sulfate 220 mg 12/06/20 22:00 12/09/20 21:48 Zinc Sulfate 220 Mg Cap PO 220 mg BID DARYA Administration Zolpidem Tartrate 5 mg 12/07/20 22:00 12/08/20 23:10 Zolpidem 5 Mg Tab PO 5 mg QHS PRN Administration Sleep Nutrition/Malnutrition Assess - Dietary Evaluation Nutrition/Malnutrition Findings: Nutrition Notes Start: 12/07/20 15:58 Freq: Status: Active Protocol: Document 12/07/20 15:58 SATNAM (Rec: 12/07/20 15:59 SATNAM [id number]) Nutrition Notes 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 Will assess upon further consult or LOS. Burn Absent Trauma Absent Minimum of two criteria No
[2020-12-10] MEDS: TENOFOVIR 300 MG TAB PO SCH (09:49)
[2020-12-10] MEDS: EMTRICITABINE 200 MG CAP PO SCH (09:49)
[2020-12-10] MEDS: RITONAVIR 100 MG TAB PO SCH (09:49)
[2020-12-10] MEDS: ASCORBIC ACID 500 MG TAB PO SCH ×2 (09:49→22:01)
[2020-12-10] MEDS: ZINC SULFATE 220 MG CAP PO SCH ×2 (09:49→22:03)
[2020-12-10] MEDS: CHOLECALCIFEROL (VIT D3) 5,000 UNIT TAB PO SCH (09:50)
[2020-12-10] MEDS: FAMOTIDINE 20 MG TAB PO SCH ×2 (09:50→22:02)
[2020-12-10] MEDS: DARUNAVIR 800 MG TAB PO SCH (09:52)
[2020-12-10] MEDS: INSULIN GLARGINE 100 UNITS/ML SUB-Q SCH (09:57)
[2020-12-10] MEDS ORDERED: predniSONE 20 MG TAB PO SCH (10:00)
--- NOTE | 2020-12-10 10:54 | Progress Note ---
Assessment and Plan Sepsis with acute hypoxic respiratory failure Bilateral pneumonia, worsening GGO on chest imaging CHF (congestive heart failure) Person under investigation for COVID-19 HIV (human immunodeficiency virus infection) T2DM (type 2 diabetes mellitus) Anemia, microcytic Extensive discussions with her. Explained the need for bronchoscopy. The risks benefits, indications and complications for bronchoscopy were discussed. She is agreeable to the procedure for diagnostic purposes She is COVID negative. GI lab will be notified on Friday and bronch scheduled fro Friday. I explained to her that I will not be in [facility] on Friday and one of my colleagues will be performing the procedure. She verbalized understanding -Titrate supplemental oxygen to keep SpO2 89-92% -Antibiotics and anti-infectives per ID service -Continue with VTE prophylaxis -Chronic home medications- on ART -Stress ulcer prophylaxis while she is on steroids -Accucheck with glycemic control, target blood glucose <180mg/dL; avoid hypoglycemia She needs better glycemic control, blood glucose is >200.She is currently on steroids -Gentle IV hydration -Supportive transfusions as clinically indicated. Keep Hgb >7g/dL Subjective Date of service: 12/10/20 Principal diagnosis: HIV pneumonia Interval history: Follow up for Sepsis with acute hypoxic respiratory failure; Bilateral pneumonia, worsening GGO on chest imaging; HIV Seen and examined. Vitals, labs, medications, chart reviewed. Discussed with respiratory and nursing staff. She is no better today. On going shortness of breath on rest, weakness and on going chest tightness No fevers, no chills, no nausea or vomiting Objective Vital Signs - 12hr 12/10/20 07:58 Pulse Rate [ 87 Bilateral] Respiratory 16 Rate [Bilateral ] O2 Sat by Pulse 92 Oximetry Constitutional: no acute distress, alert Eyes: non-icteric ENT: oropharynx moist, other (oral candidiasis) Neck: supple, no lymphadenopathy, no JVD Effort: mildly labored Ascultation: Bilateral: diminished breath sounds Cardiovascular: regular rate and rhythm, other (S1,S2) Gastrointestinal: normoactive bowel sounds, soft, non-tender Integumentary: normal Extremities: no cyanosis, no edema, pulses normal Neurologic: normal mental status, non-focal exam, pupils equal and round, CN II- XII normal, motor strength normal and (but wekness) Psychiatric: mood appropriate, depressed CBC and BMP: 12/07/20 02:12 12/07/20 02:12 ABG, PT/INR, D-dimer: ABG ABG pH 7.400 (7.320-7.450) 12/08/20 16:18 POC ABG pCO2 32.1 mmHg (32.0-48.0) 12/08/20 16:18 POC ABG pO2 85.3 mmHg (83-108) 12/08/20 16:18 POC ABG HCO3 19.4 12/08/20 16:18 ABG O2 Saturation 96.4 (0-100) 12/08/20 16:18 PT/INR, D-dimer D-Dimer 185.58 ng/mlDDU (0-234) 12/06/20 15:24 Abnormal lab findings: Abnormal Labs 12/06/20 12/06/20 12/06/20 14:04 14:04 15:24 RBC 3.57 L Hgb 8.8 L Hct 27.3 L MCV 76 L MCH 25 L [place] % (Auto) 8.5 H ABG Hemoglobin ABG Sodium ABG Glucose Carboxyhemoglobin Sodium 136 L Glucose 149 H POC Glucose Hemoglobin A1c Calcium Iron Lactate Dehydrogenase 418 H C-Reactive Protein 7.10 H Total Protein 8.6 H Albumin 2.9 L Arterial Blood Glucose 12/07/20 12/07/20 12/07/20 02:12 02:12 02:12 RBC 3.61 L Hgb 9.2 L Hct 27.8 L MCV 77 L MCH 26 L [place] % (Auto) 9.4 H ABG Hemoglobin ABG Sodium ABG Glucose Carboxyhemoglobin Sodium Glucose 123 H POC Glucose Hemoglobin A1c 8.2 H Calcium 8.3 L Iron Lactate Dehydrogenase C-Reactive Protein Total Protein 8.3 H Albumin 3.2 L Arterial Blood Glucose 12/07/20 12/07/20 12/07/20 07:28 07:48 11:48 RBC Hgb Hct MCV MCH [place] % (Auto) ABG Hemoglobin ABG Sodium ABG Glucose Carboxyhemoglobin Sodium Glucose POC Glucose 290 H 217 H Hemoglobin A1c Calcium Iron 22 L Lactate Dehydrogenase C-Reactive Protein Total Protein Albumin Arterial Blood Glucose 12/07/20 12/07/20 12/08/20 16:46 22:36 08:50 RBC Hgb Hct MCV MCH [place] % (Auto) ABG Hemoglobin ABG Sodium ABG Glucose Carboxyhemoglobin Sodium Glucose POC Glucose 203 H 189 H 293 H Hemoglobin A1c Calcium Iron Lactate Dehydrogenase C-Reactive Protein Total Protein Albumin Arterial Blood Glucose 12/08/20 12/08/20 12/08/20 11:35 16:18 16:39 RBC Hgb Hct MCV MCH [place] % (Auto) ABG Hemoglobin 9.4 L ABG Sodium 132.7 L ABG Glucose 303 H Carboxyhemoglobin 0.4 L Sodium Glucose POC Glucose 360 H 288 H Hemoglobin A1c Calcium Iron Lactate Dehydrogenase C-Reactive Protein Total Protein Albumin Arterial Blood Glucose 303 H 12/08/20 12/09/20 12/09/20 21:08 13:32 21:43 RBC Hgb Hct MCV MCH [place] % (Auto) ABG Hemoglobin ABG Sodium ABG Glucose Carboxyhemoglobin Sodium Glucose POC Glucose 300 H 394 H Hemoglobin A1c Calcium Iron Lactate Dehydrogenase 273 H C-Reactive Protein Total Protein Albumin Arterial Blood Glucose 12/10/20 07:37 RBC Hgb Hct MCV MCH [place] % (Auto) ABG Hemoglobin ABG Sodium ABG Glucose Carboxyhemoglobin Sodium Glucose POC Glucose 431 H Hemoglobin A1c Calcium Iron Lactate Dehydrogenase C-Reactive Protein Total Protein Albumin Arterial Blood Glucose Chest x-ray: image reviewed Allied health notes reviewed: nursing
[2020-12-10] MEDS: FLUCONAZOLE 200 MG TAB PO SCH (13:05)
[2020-12-10] MEDS: oxyCODONE /ACETAMINOPHEN 5-325MG TAB PO PRN (17:01)
[2020-12-10] MEDS: guaiFENesin 100 MG/5 ML ORAL LIQD PO PRN (22:01)
[2020-12-10] MEDS: predniSONE 20 MG TAB PO SCH (22:02)
[2020-12-10] MEDS: ENOXAPARIN 40 MG/0.4 ML INJ SUB-Q SCH (22:03)
[2020-12-11] MEDS: SULFAMETHOXAZOLE/TRIMETHOPRIM 800/160MG DS TAB PO SCH ×3 (05:37→21:45)
[2020-12-11] MEDS: INSULIN LISPRO 100 UNIT/ML SUB-Q SCH ×4 (08:36→22:40)
[2020-12-11] MEDS: metFORMIN XR 500MG TAB PO SCH (08:36)
[2020-12-11] MEDS: INSULIN GLARGINE 100 UNITS/ML SUB-Q SCH (08:37)
[2020-12-11] MEDS: IPRATROPIUM/ALBUTEROL SULFATE 3 ML AMPUL.NEB IH SCH ×3 (08:50→21:27)
[2020-12-11] MEDS: DARUNAVIR 800 MG TAB PO SCH (09:02)
[2020-12-11] MEDS: ZINC SULFATE 220 MG CAP PO SCH ×2 (09:02→21:45)
[2020-12-11] MEDS: predniSONE 20 MG TAB PO SCH ×2 (09:02→21:45)
[2020-12-11] MEDS: ASCORBIC ACID 500 MG TAB PO SCH ×2 (09:02→21:46)
[2020-12-11] MEDS: CHOLECALCIFEROL (VIT D3) 5,000 UNIT TAB PO SCH (09:03)
[2020-12-11] MEDS: EMTRICITABINE 200 MG CAP PO SCH (09:03)
[2020-12-11] MEDS: RITONAVIR 100 MG TAB PO SCH (09:03)
[2020-12-11] MEDS: TENOFOVIR 300 MG TAB PO SCH (09:03)
[2020-12-11] MEDS: FAMOTIDINE 20 MG TAB PO SCH ×2 (09:03→21:45)
--- NOTE | 2020-12-11 09:22 | Progress Note ---
Assessment and Plan Assessment and plan: (1) Sepsis with acute hypoxic respiratory failure Current Visit: Yes Status: Acute Qualifiers: Severe sepsis shock status: unspecified Plan to address problem: Supplemental oxygen and keep the oxygen saturations above 92 Possible Covid pneumonia Treat for bilateral pneumonia and Covid pneumonia (2) Bilateral pneumonia Current Visit: Yes Status: Acute Plan to address problem: Treated as community-acquired pneumonia Coronavirus PCR requested IV Decadron initiated ID consult requested (3) CHF (congestive heart failure) Current Visit: No Status: Chronic Qualifiers: Heart failure type: combined systolic and diastolic Plan to address problem: Cardiogram for ejection fraction IV Lasix 40 mg every 24 (4) Person under investigation for COVID-19 Current Visit: Yes Status: Acute Plan to address problem: Coronavirus PCR requested IV Decadron initiated Zinc vitamin C and vitamin D initiated (5) HIV (human immunodeficiency virus infection) Current Visit: Yes Status: Chronic Qualifiers: HIV symptom status: asymptomatic, with no history of HIV-related illness Qualified Code(s): Z21 - Asymptomatic human immunodeficiency virus [HIV] inf ection status Plan to address problem: Patient on Zithromax (6) T2DM (type 2 diabetes mellitus) Current Visit: Yes Status: Chronic Qualifiers: 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 exterminator insulin use status Plan to address problem: Check hemoglobin A1c Accu-Cheks AC at bedtime Coverage as per moderate dose sliding scale Continue Metformin (7) DVT prophylaxis Current Visit: Yes Status: Acute Plan to address problem: On Lovenox and GI prophylaxis (8) Anemia Current Visit: Yes Status: Chronic Qualifiers: Anemia type: iron deficiency Plan to address problem: Probable iron deficiency anemia: Check iron levels B12 and folic acid (9) DVT prophylaxis Current Visit: No Status: Acute Plan to address problem: Lovenox and GI prophylaxis 12/07/2020 -COVID-19 test is pending -Continue with IV antibiotics for now, follow procalcitonin level -ID consulted. -Patient's hemoglobin A1c is 8.2 -HIV; patient will follow with ID 12/08/2020 -CTA showed worsening of her groundglass opacities -COVID-19 test was negative -ID consulted and recommend to continue with antibiotics for now -Patient is on her HIV medications -Patient will oxygen saturation dropped to 85% on ambulation and patient require oxygen at discharge -I put a consult for pulmonary 12/09/2020 -Patient's proBNP is normal, pulmonary ordered echo. Patient states she has history of CHF and told me she was diagnosed in this hospital but I check her r ecords and there is no echo report. -Home oxygen arranged. 12/10/2020 -Echo showed no CHF. Patient was seen by ID and started the patient on Bactrim for suspected PCP, and fluconazole for oral candidiasis. We going to follow Fungitell and induced sputum for PCP. Patient has hyperglycemia and added 15 units of Lantus, change Solu-Medrol to prednisone 40 mg daily. Disposition is per pulmonary and ID recommendation 12/11/2020; patient is on Bactrim and fluconazole per ID recommendation. Patient is on steroid per pulmonary recommendation. Induced sputum for PCP was ordered but there was no collected, in detail was ordered. Patient's blood sugar is uncontrolled and I increase Lantus from 15 to 25 units, change sliding scale from moderate to high dose. Continue to monitor and adjust as needed. Disposition is per pulmonary and ID recommendation. Pulmonary evaluated and recommendations as follows: Patient has been scheduled for bronchoscopy with TBBx, cytology brushings, BAL tomorrow at 1pm. Patient is NPO from midnight. Enoxaparin has been stopped. Start D51/2Nsaline at midnight. History Interval history: Patient was seen and evaluated this morning Patient states she is breathing better Hospitalist Physical - Physical exam Narrative exam: Not in cardiopulmonary distress. The patient appeared well nourished and normally developed. Vital signs as documented. Head exam is unremarkable. Patient has oral thrush No scleral icterus . Neck is without jugular venous distension, thyromegaly, or carotid bruits. Lungs scattered wheezing. Cardiac exam reveals regular rate and Rhythm. Abdominal exam reveals normal bowel sounds, nontender, no organomegaly. Extremities are nonedematous and both femoral and pedal pulses are normal. 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 No focal weakness. - Constitutional Vitals: Temp Pulse Resp BP Pulse Ox 98.3 F 91 H 18 120/79 94 12/10/20 21:11 12/10/20 21:11 12/10/20 22:00 12/10/20 21:11 12/10/20 21:11 General appearance: Present: mild distress, well-nourished HEART Score - HEART Score Troponin: Troponin T < 0.010 ng/mL (0.00-0.029) 12/06/20 14:04 Results - Labs CBC & Chem 7: 12/07/20 02:12 12/07/20 02:12 Labs: Laboratory Last Values WBC 4.6 K/mm3 (4.5-11.0) 12/07/20 02:12 RBC 3.61 M/mm3 (3.65-5.03) L 12/07/20 02:12 Hgb 9.2 gm/dl (10.1-14.3) L 12/07/20 02:12 Hct 27.8 % (30.3-42.9) L 12/07/20 02:12 MCV 77 fl (79-97) L 12/07/20 02:12 MCH 26 pg (28-32) L 12/07/20 02:12 MCHC 33 % (30-34) 12/07/20 02:12 RDW 14.1 % (13.2-15.2) 12/07/20 02:12 Plt Count 378 K/mm3 (140-440) 12/07/20 02:12 Lymph % (Auto) 30.9 % (13.4-35.0) 12/07/20 02:12 [place] % (Auto) 9.4 % (0.0-7.3) H 12/07/20 02:12 Eos % (Auto) 1.4 % (0.0-4.3) 12/07/20 02:12 Baso % (Auto) 0.6 % (0.0-1.8) 12/07/20 02:12 Lymph # (Auto) 1.4 K/mm3 (1.2-5.4) 12/07/20 02:12 [place] # (Auto) 0.4 K/mm3 (0.0-0.8) 12/07/20 02:12 Eos # (Auto) 0.1 K/mm3 (0.0-0.4) 12/07/20 02:12 Baso # (Auto) 0.0 K/mm3 (0.0-0.1) 12/07/20 02:12 Seg Neutrophils % 57.7 % (40.0-70.0) 12/07/20 02:12 Seg Neutrophils # 2.7 K/mm3 (1.8-7.7) 12/07/20 02:12 D-Dimer 185.58 ng/mlDDU (0-234) 12/06/20 15:24 ABG pH 7.400 (7.320-7.450) 12/08/20 16:18 POC ABG pCO2 32.1 mmHg (32.0-48.0) 12/08/20 16:18 POC ABG pO2 85.3 mmHg (83-108) 12/08/20 16:18 POC ABG HCO3 19.4 12/08/20 16:18 ABG O2 Saturation 96.4 (0-100) 12/08/20 16:18 POC ABG Base Excess -4.7 12/08/20 16:18 ABG Hemoglobin 9.4 (12.0-17.5) L 12/08/20 16:18 ABG Oxyhemoglobin 96.0 (94-98) 12/08/20 16:18 ABG Methemoglobin 0 (0.0-1.5) 12/08/20 16:18 ABG Sodium 132.7 mmol/L (136.0-145.0) L 12/08/20 16:18 ABG Potassium 4.4 mmol/L (3.40-4.50) 12/08/20 16:18 ABG Chloride 101.0 mmol/L (98-107) 12/08/20 16:18 ABG Glucose 303 mg/dL (65-95) H 12/08/20 16:18 Carboxyhemoglobin 0.4 (0.5-1.5) L 12/08/20 16:18 FiO2 % 28.0 12/08/20 16:18 Sodium 137 mmol/L (137-145) 12/07/20 02:12 Potassium 4.4 mmol/L (3.6-5.0) 12/07/20 02:12 Chloride 100.6 mmol/L (98-107) 12/07/20 02:12 Carbon Dioxide 24 mmol/L (22-30) 12/07/20 02:12 Anion Gap 17 mmol/L 12/07/20 02:12 BUN 12 mg/dL (7-17) 12/07/20 02:12 Creatinine 0.7 mg/dL (0.6-1.2) 12/07/20 02:12 Estimated GFR > 60 ml/min 12/07/20 02:12 BUN/Creatinine Ratio 17 % 12/07/20 02:12 Glucose 123 mg/dL (65-100) H 12/07/20 02:12 POC Glucose 399 mg/dL (70-105) H 12/11/20 07:24 Hemoglobin A1c 8.2 % (4-6) H 12/07/20 02:12 Lactic Acid 1.10 mmol/L (0.7-2.0) 12/06/20 23:55 Calcium 8.3 mg/dL (8.4-10.2) L 12/07/20 02:12 Iron 22 ug/dL (37-170) L 12/07/20 07:28 TIBC 341 mcg/dL (250-450) 12/07/20 07:28 % Saturation 6.45 % 12/07/20 07:28 Transferrin 292 mg/dl (192-382) 12/07/20 07:28 Ferritin 40.7 ng/mL (10.0-200.0) 12/06/20 15:24 Total Bilirubin 0.40 mg/dL (0.1-1.2) 12/07/20 02:12 AST 26 units/L (5-40) 12/07/20 02:12 ALT 9 units/L (7-56) 12/07/20 02:12 Alkaline Phosphatase 94 units/L (35-129) 12/07/20 02:12 Lactate Dehydrogenase 273 units/L (91-180) H 12/09/20 13:32 Troponin T < 0.010 ng/mL (0.00-0.029) 12/06/20 14:04 C-Reactive Protein 7.10 mg/dL (0.00-1.30) H 12/06/20 15:24 NT-Pro-B Natriuret Pep 150.7 pg/mL (0-450) 12/09/20 00:43 Total Protein 8.3 g/dL (6.3-8.2) H 12/07/20 02:12 Albumin 3.2 g/dL (3.9-5) L 12/07/20 02:12 Albumin/Globulin Ratio 0.6 % 12/07/20 02:12 Vitamin B12 304.1 pg/mL (211-911) 12/07/20 07:28 Procalcitonin < 0.05 ng/mL (<0.15) 12/06/20 15:24 HCG, Qual Negative (Negative) 12/06/20 14:04 Arterial Blood Glucose 303 mg/dL (65-95) H 12/08/20 16:18 Arterial Blood Ionized Calcium 4.9 mg/dL (4.6-5.3) 12/08/20 16:18 Urine Color Yellow (Yellow) 12/07/20 Unknown Urine Turbidity Clear (Clear) 12/07/20 Unknown Urine pH 7.0 (5.0-7.0) 12/07/20 Unknown Ur Specific [place] 1.017 (1.003-1.030) 12/07/20 Unknown Urine Protein <15 mg/dl mg/dL (Negative) 12/07/20 Unknown Urine Glucose (UA) 150 mg/dL (Negative) 12/07/20 Unknown Urine Ketones Neg mg/dL (Negative) 12/07/20 Unknown Urine Blood Neg (Negative) 12/07/20 Unknown Urine Nitrite Neg (Negative) 12/07/20 Unknown Urine Bilirubin Neg (Negative) 12/07/20 Unknown Urine Urobilinogen 2.0 mg/dL (<2.0) 12/07/20 Unknown Ur Leukocyte Esterase Neg (Negative) 12/07/20 Unknown Urine WBC (Auto) < 1.0 /HPF (0.0-6.0) 12/07/20 Unknown Urine RBC (Auto) 1.0 /HPF (0.0-6.0) 12/07/20 Unknown U Epithel Cells (Auto) 6.0 /HPF (0-13.0) 12/07/20 Unknown Coronavirus (PCR) Negative (Negative) 12/06/20 08:46 Microbiology: Microbiology 12/06/20 14:04 Peripheral/Venous Blood Culture - Preliminary NO GROWTH AFTER 4 DAYS 12/06/20 14:04 Peripheral/Venous Blood Culture - Preliminary NO GROWTH AFTER 4 DAYS Santiago/IV: Voiding Method Toilet Active Medications - Current Medications Current Medications: Generic Name Dose Route Start Last Admin Trade Name Freq PRN Reason Stop Dose Admin Acetaminophen 650 mg 12/06/20 21:36 Acetaminophen 325 Mg Tab PO Q4H PRN Pain MILD(1-3)/Fever >100.5/RODRIGUES Albuterol/Ipratropium 1 ampul 12/07/20 08:00 12/10/20 20:15 Ipratropium/Albuterol Sulfate 3 Ml Ampul.Neb IH 1 ampul TIDRT DARYA Administration Ascorbic Acid 1,000 mg 12/06/20 22:00 12/11/20 09:02 Ascorbic Acid 500 Mg Tab PO 1,000 mg BID DARYA Administration Cholecalciferol 5,000 unit 12/06/20 22:00 12/11/20 09:03 Cholecalciferol (Vit D3) 5,000 Unit Tab PO 5,000 unit DAILY DARYA Administration Darunavir 800 mg 12/07/20 16:00 12/11/20 09:02 Darunavir 800 Mg Tab PO 800 mg QDAY DARYA Administration Emtricitabine 200 mg 12/07/20 16:00 12/11/20 09:03 Emtricitabine 200 Mg Cap PO 200 mg QDAY DARYA Administration Enoxaparin Sodium 40 mg 12/06/20 22:00 12/10/20 22:03 Enoxaparin 40 Mg/0.4 Ml Inj SUB-Q 40 mg QDAY@2200 DARYA Administration Protocol Famotidine 20 mg 12/06/20 22:00 12/11/20 09:03 Famotidine 20 Mg Tab PO 20 mg BID DARYA Administration Fluconazole 200 mg 12/09/20 13:00 12/10/20 13:05 Fluconazole 200 Mg Tab PO 200 mg QDAY DARYA Administration Protocol Guaifenesin 200 mg 12/06/20 23:59 12/10/20 22:01 Guaifenesin 100 Mg/5 Ml Oral Liqd PO 200 mg Q8H PRN Administration Cough Insulin Glargine 25 units 12/12/20 08:00 Insulin Glargine 100 Units/Ml SUB-Q QAMDIAB [facility] Insulin Human Lispro 0 unit 12/09/20 22:00 12/11/20 08:36 Insulin Lispro 100 Unit/Ml SUB-Q 8 unit ACHS [facility] Administration Protocol Metformin HCl 500 mg 12/06/20 21:30 12/11/20 08:36 Metformin Xr 500mg Tab PO 500 mg QAMDIAB DARYA Administration Metoclopramide HCl 10 mg 12/06/20 21:36 Metoclopramide 10 Mg/2 Ml Inj IV Q6H PRN Nausea And Vomiting Ondansetron HCl 4 mg 12/06/20 21:21 Ondansetron 4 Mg Odt Tab PO Q8H PRN Nausea And Vomiting Ondansetron HCl 4 mg 12/06/20 21:36 Ondansetron 4 Mg/2 Ml Inj IV Q8H PRN Nausea And Vomiting Oxycodone/Acetaminophen 2 tab 12/07/20 18:00 12/10/20 17:01 Oxycodone /Acetaminophen 5-325mg Tab PO 2 tab Q6H PRN Administration Pain, Moderate (4-6) Prednisone 40 mg 12/10/20 22:00 12/11/20 09:02 Prednisone 20 Mg Tab PO 40 mg BID DARYA Administration Ritonavir 100 mg 12/07/20 16:00 12/11/20 09:03 Ritonavir 100 Mg Tab PO 100 mg QDAY DARYA Administration Sodium Chloride 10 ml 12/06/20 22:00 12/11/20 09:04 Sodium Chloride 0.9% 10 Ml Flush Syringe IV 10 ml BID DARYA Administration Sodium Chloride 10 ml 12/06/20 21:36 Sodium Chloride 0.9% 10 Ml Flush Syringe IV PRN PRN LINE FLUSH Tenofovir Disoproxil Fumarate 300 mg 12/07/20 16:00 12/11/20 09:03 Tenofovir 300 Mg Tab PO 300 mg QDAY DARYA Administration Tramadol HCl 50 mg 12/06/20 21:21 Tramadol 50 Mg Tab PO Q8H PRN PAIN (4-6) Trimethoprim/Sulfamethoxazole 2 each 12/09/20 14:00 12/11/20 05:37 Sulfamethoxazole/Trimethoprim 800/160mg Ds Tab PO 2 each Q8HR DARYA Administration Protocol Zinc Sulfate 220 mg 12/06/20 22:00 12/11/20 09:02 Zinc Sulfate 220 Mg Cap PO 220 mg BID DARYA Administration Zolpidem Tartrate 5 mg 12/07/20 22:00 12/08/20 23:10 Zolpidem 5 Mg Tab PO 5 mg QHS PRN Administration Sleep Nutrition/Malnutrition Assess - Dietary Evaluation Nutrition/Malnutrition Findings: Nutrition Notes Start: 12/07/20 15:58 Freq: Status: Active Protocol: Document 12/07/20 15:58 SATNAM (Rec: 12/07/20 15:59 SATNAM [id number]) Nutrition Notes Need for Assessment generated from: emergency medical technician basic Initial or Follow up Brief Note Subjective/Other Information Pt screened for skin risk, however, Dmitri score is 20. Will assess upon further consult or LOS. Burn Absent Trauma Absent Minimum of two criteria No
[2020-12-11] MEDS ORDERED: INSULIN GLARGINE 100 UNITS/ML SUB-Q ONE (10:00)
[2020-12-11] MEDS: FLUCONAZOLE 200 MG TAB PO SCH (11:34)
[2020-12-11] MEDS: oxyCODONE /ACETAMINOPHEN 5-325MG TAB PO PRN (11:38)
--- NOTE | 2020-12-11 12:20 | Event Note ---
Date: 12/11/20 Patient has been scheduled for bronchoscopy with TBBx, cytology brushings, BAL tomorrow at 1pm. Patient is NPO from midnight. Enoxaparin has been stopped. Start D51/2Nsaline at midnight.
--- NOTE | 2020-12-11 14:15 | Progress Note ---
Assessment and Plan Patient alert, awake. resting on 2 litres o2. o2 saturation 96%. Still complaining shortness of breath and cough and slight chest pain. Patient afebrile. No leukocytosis. Patient has CTA of chest 12/06/20 reported No PE. Worsening bilateral ground glass opacities. Considering bronchoscopy. Patient is on Prednisone, bactrim,Fluconazole. akbuterol/atrovent aerosol treatments, Famotidine. Patient was on S/C Lovenox. - Patient Problems (1) Bilateral pneumonia Current Visit: Yes Status: Acute Plan to address problem: Patient is on bactrim DS and Fluconazole. (2) History of HIV or AIDS Current Visit: Yes Status: Acute Plan to address problem: Management as per infectious diseases. (3) Person under investigation for COVID-19 Current Visit: Yes Status: Acute Plan to address problem: Patient [place] virus PCR negative. 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 (5) Atrial fibrillation with RVR Current Visit: No Status: Acute Plan to address problem: Management as per cardiology. (6) CHF (congestive heart failure) Current Visit: No Status: Chronic Qualifiers: Heart failure type: combined systolic and diastolic Plan to address problem: Management as per cardiology. Subjective Date of service: 12/11/20 Principal diagnosis: HIV pneumonia Interval history: Patient alert, awake. resting on 2 litres o2. o2 saturation 96%. Still complaining shortness of breath and cough and slight chest pain. Patient afebrile. No leukocytosis. Patient has CTA of chest 12/06/20 reported No PE. Worsening bilateral ground glass opacities. Considering bronchoscopy. Patient is on Prednisone, bactrim,Fluconazole. akbuterol/atrovent aerosol treatments, Famotidine. Patient was on S/C Lovenox. Objective Vital Signs - 12hr 12/11/20 12/11/20 08:50 09:00 Pulse Rate [ 90 Bilateral] Respiratory 18 Rate [Bilateral ] O2 Sat by Pulse 96 Oximetry Constitutional: alert, appears uncomfortable Eyes: non-icteric ENT: oropharynx moist, other (oral candidiasis) Neck: supple, no lymphadenopathy, no JVD Effort: mildly labored Ascultation: Bilateral: diminished breath sounds, rales, rhonchi Cardiovascular: regular rate and rhythm, other (S1,S2) Gastrointestinal: normoactive bowel sounds, soft, non-tender Integumentary: normal Extremities: no cyanosis, no edema, pulses normal Neurologic: normal mental status, non-focal exam Psychiatric: mood appropriate, affect normal CBC and BMP: 12/07/20 02:12 12/07/20 02:12 ABG, PT/INR, D-dimer: ABG ABG pH 7.400 (7.320-7.450) 12/08/20 16:18 POC ABG pCO2 32.1 mmHg (32.0-48.0) 12/08/20 16:18 POC ABG pO2 85.3 mmHg (83-108) 12/08/20 16:18 POC ABG HCO3 19.4 12/08/20 16:18 ABG O2 Saturation 96.4 (0-100) 12/08/20 16:18 PT/INR, D-dimer D-Dimer 185.58 ng/mlDDU (0-234) 12/06/20 15:24 Abnormal lab findings: Abnormal Labs 12/06/20 12/06/20 12/06/20 14:04 14:04 15:24 RBC 3.57 L Hgb 8.8 L Hct 27.3 L MCV 76 L MCH 25 L [place] % (Auto) 8.5 H ABG Hemoglobin ABG Sodium ABG Glucose Carboxyhemoglobin Sodium 136 L Glucose 149 H POC Glucose Hemoglobin A1c Calcium Iron Lactate Dehydrogenase 418 H C-Reactive Protein 7.10 H Total Protein 8.6 H Albumin 2.9 L Arterial Blood Glucose 12/07/20 12/07/20 12/07/20 02:12 02:12 02:12 RBC 3.61 L Hgb 9.2 L Hct 27.8 L MCV 77 L MCH 26 L [place] % (Auto) 9.4 H ABG Hemoglobin ABG Sodium ABG Glucose Carboxyhemoglobin Sodium Glucose 123 H POC Glucose Hemoglobin A1c 8.2 H Calcium 8.3 L Iron Lactate Dehydrogenase C-Reactive Protein Total Protein 8.3 H Albumin 3.2 L Arterial Blood Glucose 12/07/20 12/07/20 12/07/20 07:28 07:48 11:48 RBC Hgb Hct MCV MCH [place] % (Auto) ABG Hemoglobin ABG Sodium ABG Glucose Carboxyhemoglobin Sodium Glucose POC Glucose 290 H 217 H Hemoglobin A1c Calcium Iron 22 L Lactate Dehydrogenase C-Reactive Protein Total Protein Albumin Arterial Blood Glucose 12/07/20 12/07/20 12/08/20 16:46 22:36 08:50 RBC Hgb Hct MCV MCH [place] % (Auto) ABG Hemoglobin ABG Sodium ABG Glucose Carboxyhemoglobin Sodium Glucose POC Glucose 203 H 189 H 293 H Hemoglobin A1c Calcium Iron Lactate Dehydrogenase C-Reactive Protein Total Protein Albumin Arterial Blood Glucose 12/08/20 12/08/20 12/08/20 11:35 16:18 16:39 RBC Hgb Hct MCV MCH [place] % (Auto) ABG Hemoglobin 9.4 L ABG Sodium 132.7 L ABG Glucose 303 H Carboxyhemoglobin 0.4 L Sodium Glucose POC Glucose 360 H 288 H Hemoglobin A1c Calcium Iron Lactate Dehydrogenase C-Reactive Protein Total Protein Albumin Arterial Blood Glucose 303 H 12/08/20 12/09/20 12/09/20 21:08 13:32 21:43 RBC Hgb Hct MCV MCH [place] % (Auto) ABG Hemoglobin ABG Sodium ABG Glucose Carboxyhemoglobin Sodium Glucose POC Glucose 300 H 394 H Hemoglobin A1c Calcium Iron Lactate Dehydrogenase 273 H C-Reactive Protein Total Protein Albumin Arterial Blood Glucose 12/10/20 12/10/20 12/10/20 07:37 11:04 15:37 RBC Hgb Hct MCV MCH [place] % (Auto) ABG Hemoglobin ABG Sodium ABG Glucose Carboxyhemoglobin Sodium Glucose POC Glucose 431 H 386 H 339 H Hemoglobin A1c Calcium Iron Lactate Dehydrogenase C-Reactive Protein Total Protein Albumin Arterial Blood Glucose 12/10/20 12/11/20 21:09 07:24 RBC Hgb Hct MCV MCH [place] % (Auto) ABG Hemoglobin ABG Sodium ABG Glucose Carboxyhemoglobin Sodium Glucose POC Glucose 412 H 399 H Hemoglobin A1c Calcium Iron Lactate Dehydrogenase C-Reactive Protein Total Protein Albumin Arterial Blood Glucose CT scan - chest: report reviewed Additional Studies: CTA chest 12/06/20 reported No PE. Worsening bilateral ground glass opacities. Allied health notes reviewed: nursing
--- NOTE | 2020-12-11 14:18 | Progress Note ---
Assessment and Plan Cultures: Blood culture 12/06/2020 no growth 12/06/2020 urine culture: Usual skin korin A/P: 35 yo F PMHx HIV, Dm2, CHF admitted with SOB, myalgias. #Bilateral PNA: CT shows bilateral groundglass opacities. Admitted with SOB and myalgias. Was seen here 3 weeks previously and tested negative for COVID then, treated empiric with abx. No improvement in symptoms, readmitted. CT without PE, but with worsening GGO bilaterally. Normal procalcitonin. Other viral etiology? Doubt opportunistic infection given historical excellent control of HIV. However patient noted with oral candidiasis no recent CD4 viral load. Noted mild hypoxia. She does not have any pets, and [place] the city. No recent travel, no sick contacts. No travel to the [place]. LDH elevated. #Acute hypoxia: On 2 L nasal cannula, likely due to pneumonia. Doubt volume overload, BNP is low. #HIV: reportedly well controlled with Truvada, norvir, and darunavir. Has outpatient ID. Viral load was undetectable 3 months ago. She denies missing ART. #Oral candidiasis Recs: -agree with bronch, BAL with cultures for fungi, AFB and routine, cytology, possible transbronchial biopsy -continue empiric Bactrim plus steroids -Continue fluconazole -Check influenza and RSV PCR's -Continue home ART: Truvada, Norvir, darunavir -HIV RNA PCR, CD4 count -Follow-up 1,3 [id number] Ashly Lindsay MD, FACP [facility] O: [phone] F: [phone] Subjective Date of service: 12/11/20 Principal diagnosis: HIV pneumonia Interval history: No fever. Continues to feel short of breath. Plan for bronchoscopy. Objective - Exam Narrative Exam: Physical Exam: Constitutional: Alert, cooperative. No acute distress Head, Ears, Nose: Normocephalic, atraumatic. External ears, nose normal Eyes: Conjunctivae/corneas clear. No icterus. No ptosis. Neck: Supple, no meningeal signs Oral: Thrush present Cardiovascular: S1, S2 normal. Respiratory: Bilateral crackles GI: Soft, non-tender; bowel sounds normal. No peritoneal signs Musculoskeletal: No pedal edema, no cyanosis. Skin: No rash or abscess Hem/Lymphatic: No palpable cervical or supraclavicular nodes. No lymphangitis Psych: Mood ok. Affect normal Neurological: Awake, alert, oriented. No gross abnormality - Constitutional Vitals: Vital Signs Temp Pulse Resp BP Pulse Ox 98.3 F 90 18 120/79 96 12/10/20 21:11 12/11/20 08:50 12/11/20 08:50 12/10/20 21:11 12/11/20 09:00 Temperature -Last 24 Hours Temperature 98.3 F Temperature 98.2 F - Labs CBC & Chem 7: 12/07/20 02:12 12/07/20 02:12 Labs: Abnormal lab results 12/10/20 12/10/20 12/11/20 Range/Units 15:37 21:09 07:24 POC Glucose 339 H 412 H 399 H (70-105) mg/dL
[2020-12-11] MEDS: POLYETHYLENE GLYCOL 3350 17 GM POWDER PO PRN (18:24)
[2020-12-11] MEDS: ZOLPIDEM 5 MG TAB PO PRN (21:45)
[2020-12-12] MEDS: SULFAMETHOXAZOLE/TRIMETHOPRIM 800/160MG DS TAB PO SCH ×3 (06:05→21:38)
[2020-12-12] MEDS: metFORMIN XR 500MG TAB PO SCH (07:58)
[2020-12-12] MEDS: INSULIN LISPRO 100 UNIT/ML SUB-Q SCH ×4 (08:20→22:29)
[2020-12-12] MEDS: IPRATROPIUM/ALBUTEROL SULFATE 3 ML AMPUL.NEB IH SCH ×4 (09:33→19:40)
[2020-12-12] MEDS ORDERED: LIDOCAINE (2%) 20 MG/1 ML VIAL 20 ML MDV INFILTRATI ONE ×2 (09:38→11:49)
[2020-12-12] MEDS ORDERED: SODIUM CHLORIDE 0.9% 1000 ML 1,000 ML IV SCH (09:45)
[2020-12-12] MEDS ORDERED: BENZOCAINE 20% TOP SPRAY 0.5 ML UNIT DOSE MM NR (10:00)
[2020-12-12] MEDS: INSULIN GLARGINE 100 UNITS/ML SUB-Q SCH (10:47)
--- NOTE | 2020-12-12 10:52 | Progress Note ---
Assessment and Plan Patient awake. resting in chair, on 3 litres o2. o2 saturation 97%. Still complaining shortness of breath and cough and slight chest pain. Patient afebrile. No leukocytosis. Patient has CTA of chest 12/06/20 reported No PE. Worsening bilateral ground glass opacities. Paiient scheduled for bronchoscopy to day Patient is on Prednisone, bactrim,Fluconazole. akbuterol/atrovent aerosol treatments, Famotidine. Patient was on S/C Lovenox. - Patient Problems (1) Bilateral pneumonia Current Visit: Yes Status: Acute Plan to address problem: Patient is on bactrim DS and Fluconazole. (2) History of HIV or AIDS Current Visit: Yes Status: Acute Plan to address problem: Management as per infectious diseases. (3) Person under investigation for COVID-19 Current Visit: Yes Status: Acute Plan to address problem: Patient Crona virus PCR negative. 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 (5) Atrial fibrillation with RVR Current Visit: No Status: Acute Plan to address problem: Management as per cardiology. (6) CHF (congestive heart failure) Current Visit: No Status: Chronic Qualifiers: Heart failure type: combined systolic and diastolic Plan to address problem: Management as per cardiology. Subjective Date of service: 12/12/20 Principal diagnosis: HIV pneumonia Interval history: Patient awake. resting in chair, on 3 litres o2. o2 saturation 97%. Still complaining shortness of breath and cough and slight chest pain. Patient afebrile. No leukocytosis. Patient has CTA of chest 12/06/20 reported No PE. Worsening bilateral ground glass opacities. Paiient scheduled for bronchoscopy to day Patient is on Prednisone, bactrim,Fluconazole. akbuterol/atrovent aerosol treatments, Famotidine. Patient was on S/C Lovenox. Objective Vital Signs - 12hr 12/11/20 12/12/20 12/12/20 23:50 05:09 09:36 Temperature 98.0 F Pulse Rate 80 Pulse Rate [ Bilateral] Pulse Rate [ 94 H Right Brachial] Respiratory 26 H 20 Rate Respiratory Rate [Bilateral ] Blood Pressure 123/90 O2 Sat by Pulse 97 96 96 Oximetry 12/12/20 09:37 Temperature Pulse Rate Pulse Rate [ 91 H Bilateral] Pulse Rate [ Right Brachial] Respiratory Rate Respiratory 18 Rate [Bilateral ] Blood Pressure O2 Sat by Pulse Oximetry Constitutional: no acute distress, alert Eyes: non-icteric ENT: oropharynx moist, other (oral candidiasis) Neck: supple, no lymphadenopathy, no JVD Effort: mildly labored Ascultation: Bilateral: diminished breath sounds, rales, rhonchi Cardiovascular: regular rate and rhythm, other (S1,S2) Gastrointestinal: normoactive bowel sounds, soft, non-tender Integumentary: normal Extremities: no cyanosis, no edema, pulses normal Neurologic: normal mental status, non-focal exam, pupils equal and round, CN II- XII normal, motor strength normal and (but wekness) Psychiatric: mood appropriate, depressed CBC and BMP: 12/07/20 02:12 12/07/20 02:12 ABG, PT/INR, D-dimer: ABG ABG pH 7.400 (7.320-7.450) 12/08/20 16:18 POC ABG pCO2 32.1 mmHg (32.0-48.0) 12/08/20 16:18 POC ABG pO2 85.3 mmHg (83-108) 12/08/20 16:18 POC ABG HCO3 19.4 12/08/20 16:18 ABG O2 Saturation 96.4 (0-100) 12/08/20 16:18 PT/INR, D-dimer D-Dimer 185.58 ng/mlDDU (0-234) 12/06/20 15:24 Abnormal lab findings: Abnormal Labs 12/06/20 12/06/20 12/06/20 14:04 14:04 15:24 RBC 3.57 L Hgb 8.8 L Hct 27.3 L MCV 76 L MCH 25 L Spencer % (Auto) 8.5 H ABG Hemoglobin ABG Sodium ABG Glucose Carboxyhemoglobin Sodium 136 L Glucose 149 H POC Glucose Hemoglobin A1c Calcium Iron Lactate Dehydrogenase 418 H C-Reactive Protein 7.10 H Total Protein 8.6 H Albumin 2.9 L Arterial Blood Glucose 12/07/20 12/07/20 12/07/20 02:12 02:12 02:12 RBC 3.61 L Hgb 9.2 L Hct 27.8 L MCV 77 L MCH 26 L Spencer % (Auto) 9.4 H ABG Hemoglobin ABG Sodium ABG Glucose Carboxyhemoglobin Sodium Glucose 123 H POC Glucose Hemoglobin A1c 8.2 H Calcium 8.3 L Iron Lactate Dehydrogenase C-Reactive Protein Total Protein 8.3 H Albumin 3.2 L Arterial Blood Glucose 12/07/20 12/07/20 12/07/20 07:28 07:48 11:48 RBC Hgb Hct MCV MCH Spencer % (Auto) ABG Hemoglobin ABG Sodium ABG Glucose Carboxyhemoglobin Sodium Glucose POC Glucose 290 H 217 H Hemoglobin A1c Calcium Iron 22 L Lactate Dehydrogenase C-Reactive Protein Total Protein Albumin Arterial Blood Glucose 12/07/20 12/07/20 12/08/20 16:46 22:36 08:50 RBC Hgb Hct MCV MCH Spencer % (Auto) ABG Hemoglobin ABG Sodium ABG Glucose Carboxyhemoglobin Sodium Glucose POC Glucose 203 H 189 H 293 H Hemoglobin A1c Calcium Iron Lactate Dehydrogenase C-Reactive Protein Total Protein Albumin Arterial Blood Glucose 12/08/20 12/08/20 12/08/20 11:35 16:18 16:39 RBC Hgb Hct MCV MCH Spencer % (Auto) ABG Hemoglobin 9.4 L ABG Sodium 132.7 L ABG Glucose 303 H Carboxyhemoglobin 0.4 L Sodium Glucose POC Glucose 360 H 288 H Hemoglobin A1c Calcium Iron Lactate Dehydrogenase C-Reactive Protein Total Protein Albumin Arterial Blood Glucose 303 H 12/08/20 12/09/20 12/09/20 21:08 13:32 21:43 RBC Hgb Hct MCV MCH Spencer % (Auto) ABG Hemoglobin ABG Sodium ABG Glucose Carboxyhemoglobin Sodium Glucose POC Glucose 300 H 394 H Hemoglobin A1c Calcium Iron Lactate Dehydrogenase 273 H C-Reactive Protein Total Protein Albumin Arterial Blood Glucose 12/10/20 12/10/20 12/10/20 07:37 11:04 15:37 RBC Hgb Hct MCV MCH Spencer % (Auto) ABG Hemoglobin ABG Sodium ABG Glucose Carboxyhemoglobin Sodium Glucose POC Glucose 431 H 386 H 339 H Hemoglobin A1c Calcium Iron Lactate Dehydrogenase C-Reactive Protein Total Protein Albumin Arterial Blood Glucose 12/10/20 12/11/20 12/11/20 21:09 07:24 10:56 RBC Hgb Hct MCV MCH Spencer % (Auto) ABG Hemoglobin ABG Sodium ABG Glucose Carboxyhemoglobin Sodium Glucose POC Glucose 412 H 399 H 431 H Hemoglobin A1c Calcium Iron Lactate Dehydrogenase C-Reactive Protein Total Protein Albumin Arterial Blood Glucose 12/11/20 12/11/20 12/12/20 16:26 22:31 00:53 RBC Hgb Hct MCV MCH Spencer % (Auto) ABG Hemoglobin ABG Sodium ABG Glucose Carboxyhemoglobin Sodium Glucose POC Glucose 320 H 361 H 255 H Hemoglobin A1c Calcium Iron Lactate Dehydrogenase C-Reactive Protein Total Protein Albumin Arterial Blood Glucose 12/12/20 07:16 RBC Hgb Hct MCV MCH Spencer % (Auto) ABG Hemoglobin ABG Sodium ABG Glucose Carboxyhemoglobin Sodium Glucose POC Glucose 171 H Hemoglobin A1c Calcium Iron Lactate Dehydrogenase C-Reactive Protein Total Protein Albumin Arterial Blood Glucose Allied health notes reviewed: nursing
--- NOTE | 2020-12-12 11:21 | Progress Note ---
Assessment and Plan Assessment and plan: 35-year-old female with history of HIV, type 2 diabetes and CHF comes in for 1 week of body aches cough and shortness of breath and low-grade fever. Cough is productive of mucoid sputum. Body aches are the most distressing symptom that she had. Patient is a poor historian.. Patient denies getting vaccination for coronavirus. Generalized abdominal pain. Shortness of breath present. Generalized malaise present. (1) Sepsis with acute hypoxic respiratory failure Current Visit: Yes Status: Acute Qualifiers: Severe sepsis shock status: unspecified Plan to address problem: Supplemental oxygen and keep the oxygen saturations above 92 Possible Covid pneumonia Treat for bilateral pneumonia and Covid pneumonia (2) Bilateral pneumonia Current Visit: Yes Status: Acute Plan to address problem: Treated as community-acquired pneumonia Coronavirus PCR requested IV Decadron initiated ID consult requested (3) CHF (congestive heart failure) Current Visit: No Status: Chronic Qualifiers: Heart failure type: combined systolic and diastolic Plan to address problem: Cardiogram for ejection fraction IV Lasix 40 mg every 24 (4) Person under investigation for COVID-19 Current Visit: Yes Status: Acute Plan to address problem: Coronavirus PCR requested IV Decadron initiated Zinc vitamin C and vitamin D initiated (5) HIV (human immunodeficiency virus infection) Current Visit: Yes Status: Chronic Qualifiers: HIV symptom status: asymptomatic, with no history of HIV-related illness Qualified Code(s): Z21 - Asymptomatic human immunodeficiency virus [HIV] infection status Plan to address problem: Patient on Zithromax (6) T2DM (type 2 diabetes mellitus) Current Visit: Yes Status: Chronic Qualifiers: 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 Plan to address problem: Check hemoglobin A1c Accu-Cheks AC at bedtime Coverage as per moderate dose sliding scale Continue Metformin (7) DVT prophylaxis Current Visit: Yes Status: Acute Plan to address problem: On Lovenox and GI prophylaxis (8) Anemia Current Visit: Yes Status: Chronic Qualifiers: Anemia type: iron deficiency Plan to address problem: Probable iron deficiency anemia: Check iron levels B12 and folic acid (9) DVT prophylaxis Current Visit: No Status: Acute Plan to address problem: Lovenox and GI prophylaxis 12/07/2020 -COVID-19 test is pending -Continue with IV antibiotics for now, follow procalcitonin level -ID consulted. -Patient's hemoglobin A1c is 8.2 -HIV; patient will follow with ID 12/08/2020 -CTA showed worsening of her groundglass opacities -COVID-19 test was negative -ID consulted and recommend to continue with antibiotics for now -Patient is on her HIV medications -Patient will oxygen saturation dropped to 85% on ambulation and patient require oxygen at discharge -I put a consult for pulmonary 12/09/2020 -Patient's proBNP is normal, pulmonary ordered echo. Patient states she has history of CHF and told me she was diagnosed in this hospital but I check her records and there is no echo report. -Home oxygen arranged. 12/10/2020 -Echo showed no CHF. Patient was seen by ID and started the patient on Bactrim for suspected PCP, and fluconazole for oral candidiasis. We going to follow Fungitell and induced sputum for PCP. Patient has hyperglycemia and added 15 units of Lantus, change Solu-Medrol to prednisone 40 mg daily. Disposition is per pulmonary and ID recommendation 12/11/2020; patient is on Bactrim and fluconazole per ID recommendation. Patient is on steroid per pulmonary recommendation. Induced sputum for PCP was ordered but there was no collected, in detail was ordered. Patient's blood sugar is uncontrolled and I increase Lantus from 15 to 25 units, change sliding scale from moderate to high dose. Continue to monitor and adjust as needed. Disposition is per pulmonary and ID recommendation. Pulmonary evaluated and recommendations as follows: Patient has been scheduled for bronchoscopy with TBBx, cytology brushings, BAL tomorrow at 1pm. Patient is NPO from midnight. Enoxaparin has been stopped. Start D51/2Nsaline at midnight. 12/12: Still with generalized body pain, Bronch today, Will monitor, Pain control. lethargic, awaiting History Interval history: Patient seen and examined, resting but with lethargy and generalized body pain Hospitalist Physical - Physical exam Narrative exam: Not in cardiopulmonary distress. lethargic The patient appeared well nourished and normally developed. Vital signs as documented. Head exam is unremarkable. Patient has oral thrush No scleral icterus . Neck is without jugular venous distension, thyromegaly, or carotid bruits. Lungs scattered wheezing. Cardiac exam reveals regular rate and Rhythm. Abdominal exam reveals normal bowel sounds, nontender, no organomegaly. Extremities are nonedematous and both femoral and pedal pulses are normal. LEATHER FLESHER: Alert and oriented 3. No focal weakness. - Constitutional Vitals: Temp Pulse Resp BP Pulse Ox 98.0 F 91 H 18 123/90 96 12/12/20 05:09 12/12/20 09:37 12/12/20 09:37 12/12/20 05:09 12/12/20 09:36 General appearance: Present: mild distress, well-nourished HEART Score - HEART Score Troponin: Troponin T < 0.010 ng/mL (0.00-0.029) 12/06/20 14:04 Results - Labs CBC & Chem 7: 12/07/20 02:12 12/07/20 02:12 Labs: Laboratory Last Values WBC 4.6 K/mm3 (4.5-11.0) 12/07/20 02:12 RBC 3.61 M/mm3 (3.65-5.03) L 12/07/20 02:12 Hgb 9.2 gm/dl (10.1-14.3) L 12/07/20 02:12 Hct 27.8 % (30.3-42.9) L 12/07/20 02:12 MCV 77 fl (79-97) L 12/07/20 02:12 MCH 26 pg (28-32) L 12/07/20 02:12 MCHC 33 % (30-34) 12/07/20 02:12 RDW 14.1 % (13.2-15.2) 12/07/20 02:12 Plt Count 378 K/mm3 (140-440) 12/07/20 02:12 Lymph % (Auto) 30.9 % (13.4-35.0) 12/07/20 02:12 [place] % (Auto) 9.4 % (0.0-7.3) H 12/07/20 02:12 Eos % (Auto) 1.4 % (0.0-4.3) 12/07/20 02:12 Baso % (Auto) 0.6 % (0.0-1.8) 12/07/20 02:12 Lymph # (Auto) 1.4 K/mm3 (1.2-5.4) 12/07/20 02:12 Runnels # (Auto) 0.4 K/mm3 (0.0-0.8) 12/07/20 02:12 Eos # (Auto) 0.1 K/mm3 (0.0-0.4) 12/07/20 02:12 Baso # (Auto) 0.0 K/mm3 (0.0-0.1) 12/07/20 02:12 Seg Neutrophils % 57.7 % (40.0-70.0) 12/07/20 02:12 Seg Neutrophils # 2.7 K/mm3 (1.8-7.7) 12/07/20 02:12 D-Dimer 185.58 ng/mlDDU (0-234) 12/06/20 15:24 ABG pH 7.400 (7.320-7.450) 12/08/20 16:18 POC ABG pCO2 32.1 mmHg (32.0-48.0) 12/08/20 16:18 POC ABG pO2 85.3 mmHg (83-108) 12/08/20 16:18 POC ABG HCO3 19.4 12/08/20 16:18 ABG O2 Saturation 96.4 (0-100) 12/08/20 16:18 POC ABG Base Excess -4.7 12/08/20 16:18 ABG Hemoglobin 9.4 (12.0-17.5) L 12/08/20 16:18 ABG Oxyhemoglobin 96.0 (94-98) 12/08/20 16:18 ABG Methemoglobin 0 (0.0-1.5) 12/08/20 16:18 ABG Sodium 132.7 mmol/L (136.0-145.0) L 12/08/20 16:18 ABG Potassium 4.4 mmol/L (3.40-4.50) 12/08/20 16:18 ABG Chloride 101.0 mmol/L (98-107) 12/08/20 16:18 ABG Glucose 303 mg/dL (65-95) H 12/08/20 16:18 Carboxyhemoglobin 0.4 (0.5-1.5) L 12/08/20 16:18 FiO2 % 28.0 12/08/20 16:18 Sodium 137 mmol/L (137-145) 12/07/20 02:12 Potassium 4.4 mmol/L (3.6-5.0) 12/07/20 02:12 Chloride 100.6 mmol/L (98-107) 12/07/20 02:12 Carbon Dioxide 24 mmol/L (22-30) 12/07/20 02:12 Anion Gap 17 mmol/L 12/07/20 02:12 BUN 12 mg/dL (7-17) 12/07/20 02:12 Creatinine 0.7 mg/dL (0.6-1.2) 12/07/20 02:12 Estimated GFR > 60 ml/min 12/07/20 02:12 BUN/Creatinine Ratio 17 % 12/07/20 02:12 Glucose 123 mg/dL (65-100) H 12/07/20 02:12 POC Glucose 171 mg/dL (70-105) H 12/12/20 07:16 Hemoglobin A1c 8.2 % (4-6) H 12/07/20 02:12 Lactic Acid 1.10 mmol/L (0.7-2.0) 12/06/20 23:55 Calcium 8.3 mg/dL (8.4-10.2) L 12/07/20 02:12 Iron 22 ug/dL (37-170) L 12/07/20 07:28 TIBC 341 mcg/dL (250-450) 12/07/20 07:28 % Saturation 6.45 % 12/07/20 07:28 Transferrin 292 mg/dl (192-382) 12/07/20 07:28 Ferritin 40.7 ng/mL (10.0-200.0) 12/06/20 15:24 Total Bilirubin 0.40 mg/dL (0.1-1.2) 12/07/20 02:12 AST 26 units/L (5-40) 12/07/20 02:12 ALT 9 units/L (7-56) 12/07/20 02:12 Alkaline Phosphatase 94 units/L (35-129) 12/07/20 02:12 Lactate Dehydrogenase 273 units/L (91-180) H 12/09/20 13:32 Troponin T < 0.010 ng/mL (0.00-0.029) 12/06/20 14:04 C-Reactive Protein 7.10 mg/dL (0.00-1.30) H 12/06/20 15:24 NT-Pro-B Natriuret Pep 150.7 pg/mL (0-450) 12/09/20 00:43 Total Protein 8.3 g/dL (6.3-8.2) H 12/07/20 02:12 Albumin 3.2 g/dL (3.9-5) L 12/07/20 02:12 Albumin/Globulin Ratio 0.6 % 12/07/20 02:12 Vitamin B12 304.1 pg/mL (211-911) 12/07/20 07:28 RBC Folic Acid 711 ng/mL (>280) 12/07/20 07:28 Procalcitonin < 0.05 ng/mL (<0.15) 12/06/20 15:24 HCG, Qual Negative (Negative) 12/06/20 14:04 Arterial Blood Glucose 303 mg/dL (65-95) H 12/08/20 16:18 Arterial Blood Ionized Calcium 4.9 mg/dL (4.6-5.3) 12/08/20 16:18 Urine Color Yellow (Yellow) 12/07/20 Unknown Urine Turbidity Clear (Clear) 12/07/20 Unknown Urine pH 7.0 (5.0-7.0) 12/07/20 Unknown Ur Specific [place] 1.017 (1.003-1.030) 12/07/20 Unknown Urine Protein <15 mg/dl mg/dL (Negative) 12/07/20 Unknown Urine Glucose (UA) 150 mg/dL (Negative) 12/07/20 Unknown Urine Ketones Neg mg/dL (Negative) 12/07/20 Unknown Urine Blood Neg (Negative) 12/07/20 Unknown Urine Nitrite Neg (Negative) 12/07/20 Unknown Urine Bilirubin Neg (Negative) 12/07/20 Unknown Urine Urobilinogen 2.0 mg/dL (<2.0) 12/07/20 Unknown Ur Leukocyte Esterase Neg (Negative) 12/07/20 Unknown Urine WBC (Auto) < 1.0 /HPF (0.0-6.0) 12/07/20 Unknown Urine RBC (Auto) 1.0 /HPF (0.0-6.0) 12/07/20 Unknown U Epithel Cells (Auto) 6.0 /HPF (0-13.0) 12/07/20 Unknown Coronavirus (PCR) Negative (Negative) 12/06/20 08:46 Microbiology: Microbiology 12/06/20 14:04 Peripheral/Venous Blood Culture - Final NO GROWTH AFTER 5 DAYS 12/06/20 14:04 Peripheral/Venous Blood Culture - Final NO GROWTH AFTER 5 DAYS Santiago/IV: Voiding Method Toilet Active Medications - Current Medications Current Medications: Generic Name Dose Route Start Last Admin Trade Name Freq PRN Reason Stop Dose Admin Acetaminophen 650 mg 12/06/20 21:36 Acetaminophen 325 Mg Tab PO Q4H PRN Pain MILD(1-3)/Fever >100.5/RORDIGUES Albuterol/Ipratropium 1 ampul 12/07/20 08:00 12/12/20 09:33 Ipratropium/Albuterol Sulfate 3 Ml Ampul.Neb IH 1 ampul TIDRT DARYA Administration Ascorbic Acid 1,000 mg 12/06/20 22:00 12/11/20 21:46 Ascorbic Acid 500 Mg Tab PO Not Given BID DARYA Benzocaine 2 spray 12/12/20 10:00 Benzocaine 20% Top [place] 0.5 Ml Unit Dose MM 12/13/20 09:59 PREOP NR Cholecalciferol 5,000 unit 12/06/20 22:00 12/11/20 09:03 Cholecalciferol (Vit D3) 5,000 Unit Tab PO 5,000 unit DAILY DARYA Administration Darunavir 800 mg 12/07/20 16:00 12/11/20 09:02 Darunavir 800 Mg Tab PO 800 mg QDAY DARYA Administration Emtricitabine 200 mg 12/07/20 16:00 12/11/20 09:03 Emtricitabine 200 Mg Cap PO 200 mg QDAY DARYA Administration Famotidine 20 mg 12/06/20 22:00 12/11/20 21:45 Famotidine 20 Mg Tab PO 20 mg BID DARYA Administration Fluconazole 200 mg 12/09/20 13:00 12/11/20 11:34 Fluconazole 200 Mg Tab PO 200 mg QDAY DARYA Administration Protocol Guaifenesin 200 mg 12/06/20 23:59 12/10/20 22:01 Guaifenesin 100 Mg/5 Ml Oral Liqd PO 200 mg Q8H PRN Administration Cough Sodium Chloride 1,000 mls @ 50 mls/hr 12/12/20 09:45 Nacl 0.9% 1000 Ml IV DIRECT [facility] Insulin Glargine 25 units 12/12/20 08:00 12/12/20 10:47 Insulin Glargine 100 Units/Ml SUB-Q Not Given QAMDIAB [facility] Insulin Human Lispro 0 unit 12/09/20 22:00 12/12/20 08:20 Insulin Lispro 100 Unit/Ml SUB-Q 3 unit ACHS [facility] Administration Protocol Metformin HCl 500 mg 12/06/20 21:30 12/12/20 07:58 Metformin Xr 500mg Tab PO Not Given QAMDIAB [facility] Metoclopramide HCl 10 mg 12/06/20 21:36 Metoclopramide 10 Mg/2 Ml Inj IV Q6H PRN Nausea And Vomiting Ondansetron HCl 4 mg 12/06/20 21:36 Ondansetron 4 Mg/2 Ml Inj IV Q8H PRN Nausea And Vomiting Oxycodone/Acetaminophen 2 tab 12/07/20 18:00 12/11/20 11:38 Oxycodone /Acetaminophen 5-325mg Tab PO 2 tab Q6H PRN Administration Pain, Moderate (4-6) Polyethylene Glycol 17 gm 12/11/20 18:05 12/11/20 18:24 Polyethylene Glycol 3350 17 Gm Powder PO 17 gm QDAY PRN Administration Constipation Prednisone 40 mg 12/10/20 22:00 12/11/20 21:45 Prednisone 20 Mg Tab PO 40 mg BID DARYA Administration Ritonavir 100 mg 12/07/20 16:00 12/11/20 09:03 Ritonavir 100 Mg Tab PO 100 mg QDAY DARYA Administration Sodium Chloride 10 ml 12/06/20 22:00 12/11/20 21:45 Sodium Chloride 0.9% 10 Ml Flush Syringe IV 10 ml BID DARYA Administration Sodium Chloride 10 ml 12/06/20 21:36 Sodium Chloride 0.9% 10 Ml Flush Syringe IV PRN PRN LINE FLUSH Tenofovir Disoproxil Fumarate 300 mg 12/07/20 16:00 12/11/20 09:03 Tenofovir 300 Mg Tab PO 300 mg QDAY [facility] Administration Tramadol HCl 50 mg 12/06/20 21:21 Tramadol 50 Mg Tab PO Q8H PRN PAIN (4-6) Trimethoprim/Sulfamethoxazole 2 each 12/09/20 14:00 12/12/20 06:05 Sulfamethoxazole/Trimethoprim 800/160mg Ds Tab PO Not Given Q8HR [facility] Protocol Zinc Sulfate 220 mg 12/06/20 22:00 12/11/20 21:45 Zinc Sulfate 220 Mg Cap PO 220 mg BID DARYA Administration Zolpidem Tartrate 5 mg 12/07/20 22:00 12/11/20 21:45 Zolpidem 5 Mg Tab PO 5 mg QHS PRN Administration Sleep Nutrition/Malnutrition Assess - Dietary Evaluation Nutrition/Malnutrition Findings: Nutrition Notes Start: 12/07/20 15:58 Freq: Status: Active Protocol: Document 12/07/20 15:58 SATNAM (Rec: 12/07/20 15:59 [id number]) Nutrition Notes Need for Assessment generated from: [email or web address] Initial or Follow up Brief Note Subjective/Other Information Pt screened for skin risk, however, Dmitri score is 20. Will assess upon further consult or LOS. Burn Absent Trauma Absent Minimum of two criteria No
[2020-12-12] MEDS ORDERED: LIDOCAINE VISCOUS 2% 15 ML ORAL LIQD ONE (11:50)
[2020-12-12] MEDS ORDERED: EPINEPHrine 1 MG/10 ML SYRINGE ONE (11:51)
[2020-12-12] MEDS ORDERED: WATER FOR IRRIG STERILE 250 ML BOTTLE IR ONE (11:52)
[2020-12-12] MEDS ORDERED: BENZOCAINE 20% TOP SPRAY 0.5 ML UNIT DOSE MM ONE (12:50)
[2020-12-12] MEDS ORDERED: LIDOCAINE VISCOUS 2% 15 ML ORAL LIQD PO ONE (12:50)
--- NOTE | 2020-12-12 12:55 | Procedure Note ---
Date of procedure: 12/12/20 Pre-op diagnosis: Bilateral Pneumonia; HIV +ve Post-op diagnosis: same Procedure: Fiberoptic Bronchoscopy with TBB's (Full dictation # [id number]) Please see dictated notes for full details
[2020-12-12] MEDS ORDERED: fentaNYL 100 MCG/2 ML INJ ONE (13:19)
[2020-12-12] MEDS ORDERED: propofoL 200 MG/20 ML VIAL IV ONE ×3 (13:19→13:48)
[2020-12-12] MEDS ORDERED: KETAMINE/STERILE WATER 50 MG/ML SYRINGE ONE (13:19)
--- NOTE | 2020-12-12 13:23 | Anesthesia Day of Surgery ---
Anesthesia Day of Surgery - Day of Surgery Patient Examined: Yes Patient H&P Reviewed: Yes Patient is NPO: Yes
--- NOTE | 2020-12-12 13:23 | Anesthesia Consultation ---
Anesthesia Consult and Med Hx Date of service: 12/12/20 - Airway Anesthetic Teeth Evaluation: Good ROM Head & Neck: Adequate Mental/Hyoid Distance: Adequate Mallampati Class: Class II Intubation Access Assessment: Probably Good - Pulmonary Exam CTA: Yes (increased WOB) - Cardiac Exam Cardiac Exam: RRR - Pre-Operative Health Status ASA Pre-Surgery Classification: ASA3 Proposed Anesthetic Plan: MAC - Pulmonary Hx Smoking: Yes (former smoker) Hx Respiratory Symptoms: Yes (currently on 2-3L NC) SOB: Yes Hx Pneumonia: Yes (worsening ground glass opacities on CT chest; COVID neg) - Cardiovascular System Hx Hypertension: No Hx Heart Attack/AMI: No Hx Percutaneous Transluminal Coronary Angioplasty (PTCA): No Hx Cardia Arrhythmia: No - Central Nervous System CVA: No - Endocrine Hx Renal Disease: No Hx Liver Disease: No Hx Non-Insulin Dependent Diabetes: Yes Hx Thyroid Disease: No - Hematic Hx Anemia: Yes - Other Systems Hx Substance Use: Yes (THC) - Additional Comments Anesthesia Medical History Comments: Hx awareness under anesthesia during emergency under [place]. Discussed with patient the risk of denzel- anesthestic respiratory complications given current respiratory status including but not limited to increased O2 requirements, intubation/mechanical ventilation, and/or ICU admission. Verbalized understanding.
--- NOTE | 2020-12-12 13:33 | Event Note ---
Date: 12/12/20 Off the floor for bronch. Tests ordered yesterday do not appear to have been collected. Recs: -f/u bronch + BAL with cultures for fungi, AFB and routine, cytology, possible transbronchial biopsy -continue empiric Bactrim plus steroids -Continue fluconazole -Check influenza and RSV PCR's -Continue home ART: Truvada, Norvir, darunavir -please collect HIV RNA PCR, CD4 count -Follow-up 1,3 [id number]
--- NOTE | 2020-12-12 14:40 | XRay Report ---
XR chest 1V ap INDICATION / CLINICAL INFORMATION: pneumothorax evaluation s/p transbronchial biopses. COMPARISON: December 06, 2020 FINDINGS: SUPPORT DEVICES: None. HEART / MEDIASTINUM: Unchanged. LUNGS / PLEURA: Increased bilateral lower lung zone parenchymal opacities. No pneumothorax. No pleura l effusion. ADDITIONAL FINDINGS: No significant additional findings. IMPRESSION: 1. Increased bilateral lower lung zone opacities. No pneumothorax. Signer Name: Leobardo Moreno MD Signed: 12/12/2020 2:36 PM Workstation Name: [id number]
--- NOTE | 2020-12-12 15:31 | Operative Report ---
DATE OF SURGERY: 12/12/2020 PROCEDURE: Fiberoptic bronchoscopy with transbronchial biopsies. INDICATIONS: Bilateral nonresolving pneumonia in a patient HIV positive. CONSENT: Informed and witness obtained from the patient herself. DESCRIPTION OF PROCEDURE: After informed and witness consent as well as premedication that was provided by the anesthesiologist, the fiberoptic bronchoscope was first attempted to be passed through both right and left nostrils. They were too tight and I was unable to get the scope down. Ultimately, a bite block was placed and I was able to get this scope into the oropharynx and advanced distally to the vocal cords. She received about 3 mL of topical lidocaine over the vocal cords and I entered the trachea, there was some slight tracheal deviation to the right. What was most likely scope trauma was noted just at the level of the og and in the right lower lobe region as well as some blood that probably had been aspirated from my attempts to get through the nasopharynx. I do not really see any lesions suspicious for Kaposi sarcoma or any other gross endobronchial lesion. After applying topical lidocaine at the og, the right upper lobe was entered. It was clean. No gross endobronchial lesions. The right lower lobe and bronchus intermedius was entered and then the right middle lobe was quickly evaluated. Again, no gross endobronchial lesion. Airways were on the narrow side and it was difficult really to advance through the endobronchial tree. I then evaluated the right lower lobe basilar segments, superior segment. No gross endobronchial lesions were seen. I wedged the fiberoptic bronchoscope what I believe was a lateral basilar segment. Four passes in all of transbronchial biopsies were taken from here, a couple were placed in saline for cultures and a couple were placed in formalin for pathology. I then proceeded to do brushings from this segment followed by endobronchial washings. Bleeding was minimal. She tolerated the procedure well. The fiberoptic bronchoscope was then withdrawn to the og and then I entered the left endobronchial tree. Again, pretty narrow apertures. The left upper lobe, the left lower lobe basilar segments I was able to examine had no gross endobronchial lesion and the endobronchial mucosa appeared normal. The fiberoptic bronchoscope was wedged in the basilar segment and again bronchoalveolar lavage samples were taken from there. Fiberoptic bronchoscope was then withdrawn. A quick secondary survey was done. There was no gross uncontrolled bleeding. The fiberoptic bronchoscope was then withdrawn through again bilaterally mobile vocal cords. The patient tolerated the procedure well. Post-procedure chest x-ray is pending. RECOMMENDATIONS: 1. Follow up on the chest x-ray. 2. Follow up on the pathology, cytology and cultures including AFB and fungal cultures of the samples taken. TID: [id number] RECEIPT: [id number] PRIYA/LIZBETH/EDWAR
[2020-12-12] MEDS: MORPHINE 2 MG/1 ML INJ IV PRN ×2 (16:03→21:10)
[2020-12-12] MEDS: predniSONE 20 MG TAB PO SCH ×2 (16:22→21:38)
[2020-12-12] MEDS: ZINC SULFATE 220 MG CAP PO SCH ×2 (16:23→21:39)
[2020-12-12] MEDS: FAMOTIDINE 20 MG TAB PO SCH ×2 (16:23→21:39)
[2020-12-12] MEDS: ASCORBIC ACID 500 MG TAB PO SCH ×2 (16:23→21:39)
[2020-12-12] MEDS: DARUNAVIR 800 MG TAB PO SCH (16:52)
[2020-12-12] MEDS: TENOFOVIR 300 MG TAB PO SCH (16:52)
[2020-12-12] MEDS: FLUCONAZOLE 200 MG TAB PO SCH (16:52)
[2020-12-12] MEDS: RITONAVIR 100 MG TAB PO SCH (16:52)
[2020-12-12] MEDS: CHOLECALCIFEROL (VIT D3) 5,000 UNIT TAB PO SCH (16:52)
[2020-12-12] MEDS: EMTRICITABINE 200 MG CAP PO SCH (16:53)
--- NOTE | 2020-12-12 16:57 | Post Anesthesia Evaluation ---
- Post Anesthesia Evaluation Patient Participated: Yes Airway Patent: Yes Stable Respiratory Function: Yes (placed on venti mask 40% w/ improvement of SpO2 to >95%) Nausea/Vomiting: No Temp > 96.8F: Yes Pain Manageable: Yes Adequeate Hydration: Yes Anesthesia Complications: No
[2020-12-12] MEDS: ZOLPIDEM 5 MG TAB PO PRN (21:10)
[2020-12-13] MEDS ORDERED: ACETAMINOPHEN 650 MG RECT SUPP PR PRN ×2 (04:50→05:22)
[2020-12-13] MEDS: SULFAMETHOXAZOLE/TRIMETHOPRIM 800/160MG DS TAB PO SCH ×3 (05:43→21:31)
[2020-12-13] MEDS ORDERED: ACETAMINOPHEN 650 MG RECT SUPP PR ONE (06:00)
[2020-12-13] MEDS: IPRATROPIUM/ALBUTEROL SULFATE 3 ML AMPUL.NEB IH SCH ×3 (07:50→20:23)
[2020-12-13] MEDS: oxyCODONE /ACETAMINOPHEN 5-325MG TAB PO PRN (08:43)
[2020-12-13] MEDS: INSULIN LISPRO 100 UNIT/ML SUB-Q SCH ×4 (08:44→22:36)
[2020-12-13] MEDS: INSULIN GLARGINE 100 UNITS/ML SUB-Q SCH (08:45)
[2020-12-13] MEDS: metFORMIN XR 500MG TAB PO SCH (08:45)
[2020-12-13] MEDS: RITONAVIR 100 MG TAB PO SCH (10:00)
[2020-12-13 11:56] LABS: Basophils % (Auto) 0.3 % (0.0-1.8); Eosinophils # (Auto) 0.2 K/mm3 (0.0-0.4); Eosinophils % (Auto) 1.8 % (0.0-4.3); Hematocrit 29.6 % (30.3-42.9); Hemoglobin 9.3 gm/dl (10.1-14.3); Lymphocytes # (Auto) 2.1 K/mm3 (1.2-5.4); Lymphocytes % (Auto) 16.1 % (13.4-35.0); Mean Corpuscular HGB Conc 32 % (30-34); Mean Corpuscular Volume 76 fl (79-97); Monocytes # (Auto) 0.9 K/mm3 (0.0-0.8); Platelet Count 653 K/mm3 (140-440); Red Blood Count 3.92 M/mm3 (3.65-5.03); Red Cell Distribution Width 14.3 % (13.2-15.2)
[2020-12-13] MEDS: SODIUM CHLORIDE 0.9% 1000 ML 1,000 ML IV SCH (12:24)
[2020-12-13] MEDS: ASCORBIC ACID 500 MG TAB PO SCH ×2 (12:25→21:30)
[2020-12-13] MEDS: FAMOTIDINE 20 MG TAB PO SCH ×2 (12:26→21:31)
[2020-12-13] MEDS: CHOLECALCIFEROL (VIT D3) 5,000 UNIT TAB PO SCH (12:26)
[2020-12-13] MEDS: ZINC SULFATE 220 MG CAP PO SCH ×2 (12:26→21:31)
[2020-12-13] MEDS: EMTRICITABINE 200 MG CAP PO SCH (12:29)
[2020-12-13] MEDS: TENOFOVIR 300 MG TAB PO SCH (12:29)
[2020-12-13] MEDS: FLUCONAZOLE 200 MG TAB PO SCH (12:29)
[2020-12-13] MEDS: DARUNAVIR 800 MG TAB PO SCH (12:33)
--- NOTE | 2020-12-13 12:45 | Progress Note ---
Assessment and Plan Cultures: Blood culture 12/06/2020 no growth 12/06/2020 urine culture: Usual skin korin 12/13/2020 blood culture: In process A/P: 35 yo F PMHx HIV, Dm2, CHF admitted with SOB, myalgias. #Bilateral PNA: CT shows bilateral groundglass opacities. Admitted with SOB and myalgias. Was seen here 3 weeks previously and tested negative for COVID then, treated empiric with abx. No improvement in symptoms, readmitted. CT without PE, but with worsening GGO bilaterally. Normal procalcitonin. Other viral etiology? Doubt opportunistic infection given historical excellent control of HIV. However patient noted with oral candidiasis no recent CD4 viral load. Noted mild hypoxia. She does not have any pets, and [place] in the city. No recent travel, no sick contacts. No travel to the [place]. LDH elevated. Status post bronchoscopy 12/12/2020, no gross endobronchial lesions were seen. Samples were collected. #Acute hypoxic respiratory failure: On 2 L nasal cannula, likely due to pneumonia. Doubt volume overload, BNP is low. #HIV: reportedly well controlled with Truvada, norvir, and darunavir. Has outpatient ID. Viral load was undetectable 3 months ago. She denies missing ART. #Oral candidiasis Recs: -f/u BAL with cultures for fungi, AFB and routine, cytology, possible transbronchial biopsy -continue empiric Bactrim plus steroids -Continue fluconazole -Discussed with RN to ensure pending tests were collected and sent: influenza and RSV -Continue home ART: Truvada, Norvir, darunavir -f/u HIV RNA PCR, CD4 count -Follow-up 1,3 [id number] Ashly Lindsay MD, FACP [facility] ([facility]) O: [phone] F: [phone] Subjective Date of service: 12/13/20 Principal diagnosis: HIV pneumonia Interval history: Underwent bronc yesterday. Febrile today. Feels the same. Objective - Exam Narrative Exam: Physical Exam: Constitutional: Alert, cooperative. No acute distress Head, Ears, Nose: Normocephalic, atraumatic. External ears, nose normal Eyes: Conjunctivae/corneas clear. No icterus. No ptosis. Neck: Supple, no meningeal signs Oral: Thrush present Cardiovascular: S1, S2 normal. Respiratory: Bilateral crackles GI: Soft, non-tender; bowel sounds normal. No peritoneal signs Musculoskeletal: No pedal edema, no cyanosis. Skin: No rash or abscess Hem/Lymphatic: No palpable cervical or supraclavicular nodes. No lymphangitis Psych: Mood ok. Affect normal Neurological: Awake, alert, oriented. No gross abnormality - Constitutional Vitals: Vital Signs Temp Pulse Resp BP Pulse Ox 101.5 F H 127 H 20 133/77 93 12/13/20 04:19 12/13/20 08:06 12/13/20 08:43 12/13/20 04:18 12/13/20 07:51 Temperature -Last 24 Hours Temperature 101.5 F Temperature 100.4 F Temperature 98.2 F - Labs CBC & Chem 7: 12/13/20 11:09 12/07/20 02:12 Labs: Abnormal lab results 12/12/20 12/12/20 12/12/20 Range/Units 10:47 16:40 22:04 WBC (4.5-11.0) K/mm3 Hgb (10.1-14.3) gm/dl Hct (30.3-42.9) % MCV (79-97) fl MCH (28-32) pg Plt Count (140-440) K/mm3 [place] # (Auto) (0.0-0.8) K/mm3 Seg Neutrophils % (40.0-70.0) % Seg Neutrophils # (1.8-7.7) K/mm3 POC Glucose 156 H 146 H 214 H (70-105) mg/dL 12/13/20 Range/Units 11:09 WBC 13.3 H (4.5-11.0) K/mm3 Hgb 9.3 L (10.1-14.3) gm/dl Hct 29.6 L (30.3-42.9) % MCV 76 L (79-97) fl MCH 24 L (28-32) pg Plt Count 653 H (140-440) K/mm3 [place] # (Auto) 0.9 H (0.0-0.8) K/mm3 Seg Neutrophils % 74.8 H (40.0-70.0) % Seg Neutrophils # 9.9 H (1.8-7.7) K/mm3 POC Glucose (70-105) mg/dL
--- NOTE | 2020-12-13 13:43 | Progress Note ---
Assessment and Plan Assessment and plan: 35-year-old female with history of HIV, type 2 diabetes and CHF comes in for 1 week of body aches cough and shortness of breath and low-grade fever. Cough is productive of mucoid sputum. Body aches are the most distressing symptom that she had. Patient is a poor historian.. Patient denies getting vaccination for coronavirus. Generalized abdominal pain. Shortness of breath present. Generalized malaise present. (1) Sepsis with acute hypoxic respiratory failure Current Visit: Yes Status: Acute Qualifiers: Severe sepsis shock status: unspecified Plan to address problem: Supplemental oxygen and keep the oxygen saturations above 92 Possible Covid pneumonia Treat for bilateral pneumonia and Covid pneumonia (2) Bilateral pneumonia Current Visit: Yes Status: Acute Plan to address problem: Treated as community-acquired pneumonia Coronavirus PCR requested IV Decadron initiated ID consult requested (3) CHF (congestive heart failure) Current Visit: No Status: Chronic Qualifiers: Heart failure type: combined systolic and diastolic Plan to address problem: Cardiogram for ejection fraction IV Lasix 40 mg every 24 (4) Person under investigation for COVID-19 Current Visit: Yes Status: Acute Plan to address problem: Coronavirus PCR requested IV Decadron initiated Zinc vitamin C and vitamin D initiated (5) HIV (human immunodeficiency virus infection) Current Visit: Yes Status: Chronic Qualifiers: HIV symptom status: asymptomatic, with no history of HIV-related illness Qualified Code(s): Z21 - Asymptomatic human immunodeficiency virus [HIV] infection status Plan to address problem: Patient on Zithromax (6) T2DM (type 2 diabetes mellitus) Current Visit: Yes Status: Chronic Qualifiers: Diabetes mellitus long-term 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 Plan to address problem: Check hemoglobin A1c Accu-Cheks AC at bedtime Coverage as per moderate dose sliding scale Continue Metformin (7) DVT prophylaxis Current Visit: Yes Status: Acute Plan to address problem: On Lovenox and GI prophylaxis (8) Anemia Current Visit: Yes Status: Chronic Qualifiers: Anemia type: iron deficiency Plan to address problem: Probable iron deficiency anemia: Check iron levels B12 and folic acid (9) DVT prophylaxis Current Visit: No Status: Acute Plan to address problem: Lovenox and GI prophylaxis 12/07/2020 -COVID-19 test is pending -Continue with IV antibiotics for now, follow procalcitonin level -ID consulted. -Patient's hemoglobin A1c is 8.2 -HIV; patient will follow with ID 12/08/2020 -CTA showed worsening of her groundglass opacities -COVID-19 test was negative -ID consulted and recommend to continue with antibiotics for now -Patient is on her HIV medications -Patient will oxygen saturation dropped to 85% on ambulation and patient require oxygen at discharge -I put a consult for pulmonary 12/09/2020 -Patient's proBNP is normal, pulmonary ordered echo. Patient states she has history of CHF and told me she was diagnosed in this hospital but I check her records and there is no echo report. -Home oxygen arranged. 12/10/2020 -Echo showed no CHF. Patient was seen by ID and started the patient on Bactrim for suspected PCP, and fluconazole for oral candidiasis. We going to follow Fungitell and induced sputum for PCP. Patient has hyperglycemia and added 15 units of Lantus, change Solu-Medrol to prednisone 40 mg daily. Disposition is per pulmonary and ID recommendation 12/11/2020; patient is on Bactrim and fluconazole per ID recommendation. Patient is on steroid per pulmonary recommendation. Induced sputum for PCP was ordered but there was no collected, in detail was ordered. Patient's blood sugar is uncontrolled and I increase Lantus from 15 to 25 units, change sliding scale from moderate to high dose. Continue to monitor and adjust as needed. Disposition is per pulmonary and ID recommendation. Pulmonary evaluated and recommendations as follows: Patient has been scheduled for bronchoscopy with TBBx, cytology brushings, BAL tomorrow at 1pm. Patient is NPO from midnight. Enoxaparin has been stopped. Start D51/2Nsaline at midnight. 12/12: Still with generalized body pain, Bronch today, Will monitor, Pain control. lethargic, awaiting 12/13: Continue supportive care, ID input noted, patient is post Bronchosocpy 12/12- Awaiting microdata and serologies. CONTINUE PAIN CONTROL History Interval history: Patient seen and examined, sitting up today. still with lethargy Hospitalist Physical - Physical exam Narrative exam: Sitting up on chair, not as lethargic as yesterday Not in cardiopulmonary distress. lethargic The patient appeared well nourished and normally developed. Vital signs as documented. Head exam is unremarkable. Patient has oral thrush No scleral icterus . Neck is without jugular venous distension, thyromegaly, or carotid bruits. Lungs scattered wheezing. Cardiac exam reveals regular rate and Rhythm. Abdominal exam reveals normal bowel sounds, nontender, no organomegaly. Extremities are nonedematous and both femoral and pedal pulses are normal. SPORTS THERAPIST: Alert and oriented 3. No focal weakness. - Constitutional Vitals: Temp Pulse Resp BP Pulse Ox 101.5 F H 127 H 20 133/77 93 12/13/20 04:19 12/13/20 08:06 12/13/20 08:43 12/13/20 04:18 12/13/20 07:51 General appearance: Present: mild distress, well-nourished HEART Score - HEART Score Troponin: Troponin T < 0.010 ng/mL (0.00-0.029) 12/06/20 14:04 Results - Labs CBC & Chem 7: 12/13/20 11:09 12/07/20 02:12 Labs: Laboratory Last Values WBC 13.3 K/mm3 (4.5-11.0) H 12/13/20 11:09 RBC 3.92 M/mm3 (3.65-5.03) 12/13/20 11:09 Hgb 9.3 gm/dl (10.1-14.3) L 12/13/20 11:09 Hct 29.6 % (30.3-42.9) L 12/13/20 11:09 MCV 76 fl (79-97) L 12/13/20 11:09 MCH 24 pg (28-32) L 12/13/20 11:09 MCHC 32 % (30-34) 12/13/20 11:09 RDW 14.3 % (13.2-15.2) 12/13/20 11:09 Plt Count 653 K/mm3 (140-440) H 12/13/20 11:09 Lymph % (Auto) 16.1 % (13.4-35.0) 12/13/20 11:09 [place] % (Auto) 7.0 % (0.0-7.3) 12/13/20 11:09 Eos % (Auto) 1.8 % (0.0-4.3) 12/13/20 11:09 Baso % (Auto) 0.3 % (0.0-1.8) 12/13/20 11:09 Lymph # (Auto) 2.1 K/mm3 (1.2-5.4) 12/13/20 11:09 [place] # (Auto) 0.9 K/mm3 (0.0-0.8) H 12/13/20 11:09 Eos # (Auto) 0.2 K/mm3 (0.0-0.4) 12/13/20 11:09 Baso # (Auto) 0.0 K/mm3 (0.0-0.1) 12/13/20 11:09 Seg Neutrophils % 74.8 % (40.0-70.0) H 12/13/20 11:09 Seg Neutrophils # 9.9 K/mm3 (1.8-7.7) H 12/13/20 11:09 D-Dimer 185.58 ng/mlDDU (0-234) 12/06/20 15:24 ABG pH 7.400 (7.320-7.450) 12/08/20 16:18 POC ABG pCO2 32.1 mmHg (32.0-48.0) 12/08/20 16:18 POC ABG pO2 85.3 mmHg (83-108) 12/08/20 16:18 POC ABG HCO3 19.4 12/08/20 16:18 ABG O2 Saturation 96.4 (0-100) 12/08/20 16:18 POC ABG Base Excess -4.7 12/08/20 16:18 ABG Hemoglobin 9.4 (12.0-17.5) L 12/08/20 16:18 ABG Oxyhemoglobin 96.0 (94-98) 12/08/20 16:18 ABG Methemoglobin 0 (0.0-1.5) 12/08/20 16:18 ABG Sodium 132.7 mmol/L (136.0-145.0) L 12/08/20 16:18 ABG Potassium 4.4 mmol/L (3.40-4.50) 12/08/20 16:18 ABG Chloride 101.0 mmol/L (98-107) 12/08/20 16:18 ABG Glucose 303 mg/dL (65-95) H 12/08/20 16:18 Carboxyhemoglobin 0.4 (0.5-1.5) L 12/08/20 16:18 FiO2 % 28.0 12/08/20 16:18 Sodium 137 mmol/L (137-145) 12/07/20 02:12 Potassium 4.4 mmol/L (3.6-5.0) 12/07/20 02:12 Chloride 100.6 mmol/L (98-107) 12/07/20 02:12 Carbon Dioxide 24 mmol/L (22-30) 12/07/20 02:12 Anion Gap 17 mmol/L 12/07/20 02:12 BUN 12 mg/dL (7-17) 12/07/20 02:12 Creatinine 0.7 mg/dL (0.6-1.2) 12/07/20 02:12 Estimated GFR > 60 ml/min 12/07/20 02:12 BUN/Creatinine Ratio 17 % 12/07/20 02:12 Glucose 123 mg/dL (65-100) H 12/07/20 02:12 POC Glucose 255 mg/dL (70-105) H 12/13/20 11:23 Hemoglobin A1c 8.2 % (4-6) H 12/07/20 02:12 Lactic Acid 1.10 mmol/L (0.7-2.0) 12/06/20 23:55 Calcium 8.3 mg/dL (8.4-10.2) L 12/07/20 02:12 Iron 22 ug/dL (37-170) L 12/07/20 07:28 TIBC 341 mcg/dL (250-450) 12/07/20 07:28 % Saturation 6.45 % 12/07/20 07:28 Transferrin 292 mg/dl (192-382) 12/07/20 07:28 Ferritin 40.7 ng/mL (10.0-200.0) 12/06/20 15:24 Total Bilirubin 0.40 mg/dL (0.1-1.2) 12/07/20 02:12 AST 26 units/L (5-40) 12/07/20 02:12 ALT 9 units/L (7-56) 12/07/20 02:12 Alkaline Phosphatase 94 units/L (35-129) 12/07/20 02:12 Lactate Dehydrogenase 273 units/L (91-180) H 12/09/20 13:32 Troponin T < 0.010 ng/mL (0.00-0.029) 12/06/20 14:04 C-Reactive Protein 7.10 mg/dL (0.00-1.30) H 12/06/20 15:24 NT-Pro-B Natriuret Pep 150.7 pg/mL (0-450) 12/09/20 00:43 Total Protein 8.3 g/dL (6.3-8.2) H 12/07/20 02:12 Albumin 3.2 g/dL (3.9-5) L 12/07/20 02:12 Albumin/Globulin Ratio 0.6 % 12/07/20 02:12 Vitamin B12 304.1 pg/mL (211-911) 12/07/20 07:28 RBC Folic Acid 711 ng/mL (>280) 12/07/20 07:28 Procalcitonin < 0.05 ng/mL (<0.15) 12/06/20 15:24 HCG, Qual Negative (Negative) 12/06/20 14:04 Arterial Blood Glucose 303 mg/dL (65-95) H 12/08/20 16:18 Arterial Blood Ionized Calcium 4.9 mg/dL (4.6-5.3) 12/08/20 16:18 Urine Color Yellow (Yellow) 12/07/20 Unknown Urine Turbidity Clear (Clear) 12/07/20 Unknown Urine pH 7.0 (5.0-7.0) 12/07/20 Unknown Ur Specific [place] 1.017 (1.003-1.030) 12/07/20 Unknown Urine Protein <15 mg/dl mg/dL (Negative) 12/07/20 Unknown Urine Glucose (UA) 150 mg/dL (Negative) 12/07/20 Unknown Urine Ketones Neg mg/dL (Negative) 12/07/20 Unknown Urine Blood Neg (Negative) 12/07/20 Unknown Urine Nitrite Neg (Negative) 12/07/20 Unknown Urine Bilirubin Neg (Negative) 12/07/20 Unknown Urine Urobilinogen 2.0 mg/dL (<2.0) 12/07/20 Unknown Ur Leukocyte Esterase Neg (Negative) 12/07/20 Unknown Urine WBC (Auto) < 1.0 /HPF (0.0-6.0) 12/07/20 Unknown Urine RBC (Auto) 1.0 /HPF (0.0-6.0) 12/07/20 Unknown U Epithel Cells (Auto) 6.0 /HPF (0-13.0) 12/07/20 Unknown Coronavirus (PCR) Negative (Negative) 12/06/20 08:46 Microbiology: Microbiology 12/13/20 08:19 Peripheral/Venous Blood Culture - Preliminary Culture in Progress [place]/IV: Voiding Method Toilet Active Medications - Current Medications Current Medications: Generic Name Dose Route Start Last Admin Trade Name Freq PRN Reason Stop Dose Admin Acetaminophen 650 mg 12/06/20 21:36 Acetaminophen 325 Mg Tab PO Q4H PRN Pain MILD(1-3)/Fever >100.5/RODRIGUES Acetaminophen 650 mg 12/13/20 04:50 Acetaminophen 650 Mg Rect Supp AR Q4H PRN Pain, Mild (1-3) Albuterol/Ipratropium 1 ampul 12/07/20 08:00 12/13/20 07:50 Ipratropium/Albuterol Sulfate 3 Ml Ampul.Neb IH 1 ampul TIDRT DARYA Administration Ascorbic Acid 1,000 mg 12/06/20 22:00 12/13/20 12:25 Ascorbic Acid 500 Mg Tab PO 1,000 mg BID DARYA Administration Cholecalciferol 5,000 unit 12/06/20 22:00 12/13/20 12:26 Cholecalciferol (Vit D3) 5,000 Unit Tab PO 5,000 unit DAILY DARYA Administration Darunavir 800 mg 12/07/20 16:00 12/13/20 12:33 Darunavir 800 Mg Tab PO 800 mg QDAY DARYA Administration Emtricitabine 200 mg 12/07/20 16:00 12/13/20 12:29 Emtricitabine 200 Mg Cap PO 200 mg QDAY DARYA Administration Famotidine 20 mg 12/06/20 22:00 12/13/20 12:26 Famotidine 20 Mg Tab PO 20 mg BID DARYA Administration Fluconazole 200 mg 12/09/20 13:00 12/13/20 12:29 Fluconazole 200 Mg Tab PO 200 mg QDAY DARYA Administration Protocol Guaifenesin 200 mg 12/06/20 23:59 12/10/20 22:01 Guaifenesin 100 Mg/5 Ml Oral Liqd PO 200 mg Q8H PRN Administration Cough Sodium Chloride 1,000 mls @ 100 mls/hr 12/13/20 05:00 12/13/20 12:24 Nacl 0.9% 1000 Ml IV 100 mls/hr DIRECT DARYA Administration Insulin Glargine 25 units 12/12/20 08:00 12/13/20 08:45 Insulin Glargine 100 Units/Ml SUB-Q 25 units QAMDIAB DARYA Administration Insulin Human Lispro 0 unit 12/09/20 22:00 12/13/20 08:44 Insulin Lispro 100 Unit/Ml SUB-Q 4 unit ACHS DARYA Administration Protocol Metformin HCl 500 mg 12/06/20 21:30 12/13/20 08:45 Metformin Xr 500mg Tab PO 500 mg QAMDIAB DARYA Administration Metoclopramide HCl 10 mg 12/06/20 21:36 Metoclopramide 10 Mg/2 Ml Inj IV Q6H PRN Nausea And Vomiting Morphine Sulfate 2 mg 12/12/20 14:28 12/12/20 21:10 Morphine 2 Mg/1 Ml Inj IV 2 mg Q4H PRN Administration Pain, Moderate (4-6) Ondansetron HCl 4 mg 12/06/20 21:36 Ondansetron 4 Mg/2 Ml Inj IV Q8H PRN Nausea And Vomiting Oxycodone/Acetaminophen 2 tab 12/07/20 18:00 12/13/20 08:43 Oxycodone /Acetaminophen 5-325mg Tab PO 2 tab Q6H PRN Administration Pain, Moderate (4-6) Polyethylene Glycol 17 gm 12/11/20 18:05 12/11/20 18:24 Polyethylene Glycol 3350 17 Gm Powder PO 17 gm QDAY PRN Administration Constipation Prednisone 40 mg 12/10/20 22:00 12/12/20 21:38 Prednisone 20 Mg Tab PO Not Given BID DARYA Ritonavir 100 mg 12/07/20 16:00 12/12/20 16:52 Ritonavir 100 Mg Tab PO 100 mg QDAY DARYA Administration Sodium Chloride 10 ml 12/06/20 22:00 12/13/20 12:36 Sodium Chloride 0.9% 10 Ml Flush Syringe IV 10 ml BID DARYA Administration Sodium Chloride 10 ml 12/06/20 21:36 Sodium Chloride 0.9% 10 Ml Flush Syringe IV PRN PRN LINE FLUSH Tenofovir Disoproxil Fumarate 300 mg 12/07/20 16:00 06/23/21 12:29 Tenofovir 300 Mg Tab PO 300 mg QDAY DARYA Administration Tramadol HCl 50 mg 12/06/20 21:21 Tramadol 50 Mg Tab PO Q8H PRN PAIN (4-6) Trimethoprim/Sulfamethoxazole 2 each 12/09/20 14:00 12/13/20 05:43 Sulfamethoxazole/Trimethoprim 800/160mg Ds Tab PO Not Given Q8HR DARYA Protocol Zinc Sulfate 220 mg 12/06/20 22:00 12/13/20 12:26 Zinc Sulfate 220 Mg Cap PO 220 mg BID DARYA Administration Zolpidem Tartrate 5 mg 12/07/20 22:00 12/12/20 21:10 Zolpidem 5 Mg Tab PO 5 mg QHS PRN Administration Sleep Nutrition/Malnutrition Assess - Dietary Evaluation Nutrition/Malnutrition Findings: Nutrition Notes Start: 12/07/20 15:58 Freq: Status: Active Protocol: Document 12/07/20 15:58 SATNAM (Rec: 12/07/20 15:59 SATNAM [id number]) Nutrition Notes Need for Assessment generated from: crm technical lead Initial or Follow up Brief Note Subjective/Other Information Pt screened for skin risk, however, Dmitri score is 20. Will assess upon further consult or LOS. Burn Absent Trauma Absent Minimum of two criteria No
[2020-12-13] MEDS: predniSONE 20 MG TAB PO SCH ×2 (14:05→21:31)
[2020-12-13] MEDS: MORPHINE 2 MG/1 ML INJ IV PRN ×3 (14:05→22:35)
--- NOTE | 2020-12-13 14:58 | Progress Note ---
Assessment and Plan Patient awake. On venturi mask, FIO2 50% and O2 saturation 94%. Patient weak. Still complaining shortness of breath and cough and slight chest pain. Patient afebrile. Has leukocytosis. Patient has CTA of chest 12/06/20 reported No PE. Wo rsening bilateral ground glass opacities. Paiient Undergone bronchoscopy Yesterday. Bronchoscopy specimen results pending. Chest xray done 12/13/20 reported improvement in appearence of chest compare to previous chest xray. Patient is on Prednisone, bactrim,Fluconazole. albuterol/atrovent aerosol tr eatments, Famotidine. - Patient Problems (1) Bilateral pneumonia Current Visit: Yes Status: Acute Plan to address problem: Patient is on bactrim DS and Fluconazole. Venturi mask, FIO2 50%. (2) History of HIV or AIDS Current Visit: Yes Status: Acute Plan to address problem: Management as per infectious diseases. (3) Person under investigation for COVID-19 Current Visit: Yes Status: Acute Plan to address problem: Patient [place] virus PCR negative. (4) T2DM (type 2 diabetes mellitus) Current Visit: Yes Status: Chronic Qualifiers: Diabetes mellitus emt 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 insulin use: unspecified emt 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 insulin use status Plan to address problem: Management as per primary care. (5) Atrial fibrillation with RVR Current Visit: No Status: Acute Plan to address problem: Management as per cardiology. (6) CHF (congestive heart failure) Current Visit: No Status: Chronic Qualifiers: Heart failure type: combined systolic and diastolic Plan to address problem: Management as per cardiology. Subjective Date of service: 12/13/20 Principal diagnosis: HIV pneumonia Interval history: Patient awake. On venturi mask, FIO2 50% and O2 saturation 94%. Patient weak. Still complaining shortness of breath and cough and slight chest pain. Patient afebrile. Has leukocytosis. Patient has CTA of chest 12/06/20 reported No PE. Worsening bilateral ground glass opacities. Paiient Undergone bronchoscopy Yesterday. Bronchoscopy specimen results pending. Chest xray done 12/13/20 reported improvement in appearence of chest compare to previous chest xray. Patient is on Prednisone, bactrim,Fluconazole. albuterol/atrovent aerosol treatments, Famotidine. Objective Vital Signs - 12hr 12/13/20 12/13/20 12/13/20 04:18 04:19 07:51 Temperature 101.5 F H Pulse Rate 134 H 130 H Pulse Rate [ Bilateral] Respiratory 20 Rate Respiratory Rate [Bilateral ] Blood Pressure 133/77 O2 Sat by Pulse 87 91 93 Oximetry 12/13/20 12/13/20 12/13/20 08:06 08:43 14:05 Temperature Pulse Rate Pulse Rate [ 127 H Bilateral] Respiratory 20 20 Rate Respiratory 20 Rate [Bilateral ] Blood Pressure O2 Sat by Pulse Oximetry Constitutional: no acute distress, alert Eyes: non-icteric ENT: oropharynx moist, other (oral candidiasis) Neck: supple, no lymphadenopathy, no JVD Effort: mildly labored Ascultation: Bilateral: diminished breath sounds, rales, rhonchi Cardiovascular: regular rate and rhythm, other (S1,S2) Gastrointestinal: normoactive bowel sounds, soft, non-tender Integumentary: normal Extremities: no cyanosis, no edema, pulses normal Neurologic: normal mental status, non-focal exam, pupils equal and round, CN II- XII normal, motor strength normal and (but wekness) Psychiatric: mood appropriate, depressed CBC and BMP: 12/14/20 07:15 12/14/20 07:15 ABG, PT/INR, D-dimer: ABG ABG pH 7.400 (7.320-7.450) 12/08/20 16:18 POC ABG pCO2 32.1 mmHg (32.0-48.0) 12/08/20 16:18 POC ABG pO2 85.3 mmHg (83-108) 12/08/20 16:18 POC ABG HCO3 19.4 12/08/20 16:18 ABG O2 Saturation 96.4 (0-100) 12/08/20 16:18 PT/INR, D-dimer D-Dimer 185.58 ng/mlDDU (0-234) 12/06/20 15:24 Abnormal lab findings: Abnormal Labs 12/06/20 12/06/20 12/06/20 14:04 14:04 15:24 WBC RBC 3.57 L Hgb 8.8 L Hct 27.3 L MCV 76 L MCH 25 L Plt Count [place] % (Auto) 8.5 H [place] # (Auto) Seg Neutrophils % Seg Neutrophils # ABG Hemoglobin ABG Sodium ABG Glucose Carboxyhemoglobin Sodium 136 L Glucose 149 H POC Glucose Hemoglobin A1c Calcium Iron Lactate Dehydrogenase 418 H C-Reactive Protein 7.10 H Total Protein 8.6 H Albumin 2.9 L Arterial Blood Glucose 12/07/20 12/07/20 12/07/20 02:12 02:12 02:12 WBC RBC 3.61 L Hgb 9.2 L Hct 27.8 L MCV 77 L MCH 26 L Plt Count [place] % (Auto) 9.4 H [place] # (Auto) Seg Neutrophils % Seg Neutrophils # ABG Hemoglobin ABG Sodium ABG Glucose Carboxyhemoglobin Sodium Glucose 123 H POC Glucose Hemoglobin A1c 8.2 H Calcium 8.3 L Iron Lactate Dehydrogenase C-Reactive Protein Total Protein 8.3 H Albumin 3.2 L Arterial Blood Glucose 12/07/20 12/07/20 12/07/20 07:28 07:48 11:48 WBC RBC Hgb Hct MCV MCH Plt Count [place] % (Auto) [place] # (Auto) Seg Neutrophils % Seg Neutrophils # ABG Hemoglobin ABG Sodium ABG Glucose Carboxyhemoglobin Sodium Glucose POC Glucose 290 H 217 H Hemoglobin A1c Calcium Iron 22 L Lactate Dehydrogenase C-Reactive Protein Total Protein Albumin Arterial Blood Glucose 12/07/20 12/07/20 12/08/20 16:46 22:36 08:50 WBC RBC Hgb Hct MCV MCH Plt Count [place] % (Auto) [place] # (Auto) Seg Neutrophils % Seg Neutrophils # ABG Hemoglobin ABG Sodium ABG Glucose Carboxyhemoglobin Sodium Glucose POC Glucose 203 H 189 H 293 H Hemoglobin A1c Calcium Iron Lactate Dehydrogenase C-Reactive Protein Total Protein Albumin Arterial Blood Glucose 12/08/20 12/08/20 12/08/20 11:35 16:18 16:39 WBC RBC Hgb Hct MCV MCH Plt Count [place] % (Auto) [place] # (Auto) Seg Neutrophils % Seg Neutrophils # ABG Hemoglobin 9.4 L ABG Sodium 132.7 L ABG Glucose 303 H Carboxyhemoglobin 0.4 L Sodium Glucose POC Glucose 360 H 288 H Hemoglobin A1c Calcium Iron Lactate Dehydrogenase C-Reactive Protein Total Protein Albumin Arterial Blood Glucose 303 H 12/08/20 12/09/20 12/09/20 21:08 13:32 21:43 WBC RBC Hgb Hct MCV MCH Plt Count [place] % (Auto) [place] # (Auto) Seg Neutrophils % Seg Neutrophils # ABG Hemoglobin ABG Sodium ABG Glucose Carboxyhemoglobin Sodium Glucose POC Glucose 300 H 394 H Hemoglobin A1c Calcium Iron Lactate Dehydrogenase 273 H C-Reactive Protein Total Protein Albumin Arterial Blood Glucose 12/10/20 12/10/20 12/10/20 07:37 11:04 15:37 WBC RBC Hgb Hct MCV MCH Plt Count [place] % (Auto) [place] # (Auto) Seg Neutrophils % Seg Neutrophils # ABG Hemoglobin ABG Sodium ABG Glucose Carboxyhemoglobin Sodium Glucose POC Glucose 431 H 386 H 339 H Hemoglobin A1c Calcium Iron Lactate Dehydrogenase C-Reactive Protein Total Protein Albumin Arterial Blood Glucose 12/10/20 12/11/20 12/11/20 21:09 07:24 10:56 WBC RBC Hgb Hct MCV MCH Plt Count [place] % (Auto) [place] # (Auto) Seg Neutrophils % Seg Neutrophils # ABG Hemoglobin ABG Sodium ABG Glucose Carboxyhemoglobin Sodium Glucose POC Glucose 412 H 399 H 431 H Hemoglobin A1c Calcium Iron Lactate Dehydrogenase C-Reactive Protein Total Protein Albumin Arterial Blood Glucose 12/11/20 12/11/20 12/12/20 16:26 22:31 00:53 WBC RBC Hgb Hct MCV MCH Plt Count [place] % (Auto) [place] # (Auto) Seg Neutrophils % Seg Neutrophils # ABG Hemoglobin ABG Sodium ABG Glucose Carboxyhemoglobin Sodium Glucose POC Glucose 320 H 361 H 255 H Hemoglobin A1c Calcium Iron Lactate Dehydrogenase C-Reactive Protein Total Protein Albumin Arterial Blood Glucose 12/12/20 12/12/20 12/12/20 07:16 10:47 16:40 WBC RBC Hgb Hct MCV MCH Plt Count [place] % (Auto) [place] # (Auto) Seg Neutrophils % Seg Neutrophils # ABG Hemoglobin ABG Sodium ABG Glucose Carboxyhemoglobin Sodium Glucose POC Glucose 171 H 156 H 146 H Hemoglobin A1c Calcium Iron Lactate Dehydrogenase C-Reactive Protein Total Protein Albumin Arterial Blood Glucose 12/12/20 12/13/20 12/13/20 22:04 07:29 11:09 WBC 13.3 H RBC Hgb 9.3 L Hct 29.6 L MCV 76 L MCH 24 L Plt Count 653 H [place] % (Auto) [place] # (Auto) 0.9 H Seg Neutrophils % 74.8 H Seg Neutrophils # 9.9 H ABG Hemoglobin ABG Sodium ABG Glucose Carboxyhemoglobin Sodium Glucose POC Glucose 214 H 211 H Hemoglobin A1c Calcium Iron Lactate Dehydrogenase C-Reactive Protein Total Protein Albumin Arterial Blood Glucose 12/13/20 11:23 WBC RBC Hgb Hct MCV MCH Plt Count [place] % (Auto) [place] # (Auto) Seg Neutrophils % Seg Neutrophils # ABG Hemoglobin ABG Sodium ABG Glucose Carboxyhemoglobin Sodium Glucose POC Glucose 255 H Hemoglobin A1c Calcium Iron Lactate Dehydrogenase C-Reactive Protein Total Protein Albumin Arterial Blood Glucose Allied health notes reviewed: nursing
--- NOTE | 2020-12-13 16:46 | XRay Report ---
CHEST 1 VIEW INDICATION: SOB possible PE COMPARISON: 12/12/2020 FINDINGS: SUPPORT DEVICES: None. HEART / MEDIASTINUM: No significant abnormality. LUNGS / PLEURA: Significant increase in aeration throughout both lungs as compared to previous exam.. No pneumothorax. ADDITIONAL FINDINGS: IMPRESSION: 1. Improvement in appearance the chest as compared to previous exam Signer Name: Av Naik MD Signed: 12/13/2020 4:41 PM Workstation Name: [id number]
[2020-12-13] MEDS: METOCLOPRAMIDE 10 MG/2 ML INJ IV PRN (22:35)
[2020-12-14] MEDS: MORPHINE 2 MG/1 ML INJ IV PRN ×3 (05:48→18:34)
[2020-12-14] MEDS: SULFAMETHOXAZOLE/TRIMETHOPRIM 800/160MG DS TAB PO SCH (05:49)
[2020-12-14 08:20] LABS: Hematocrit 26.5 % (30.3-42.9); Hemoglobin 8.5 gm/dl (10.1-14.3); Mean Corpuscular HGB Conc 32 % (30-34); Mean Corpuscular Volume 75 fl (79-97); Platelet Count 513 K/mm3 (140-440); Red Blood Count 3.54 M/mm3 (3.65-5.03); Red Cell Distribution Width 14.3 % (13.2-15.2)
[2020-12-14] MEDS: IPRATROPIUM/ALBUTEROL SULFATE 3 ML AMPUL.NEB IH SCH ×3 (08:23→20:23)
[2020-12-14 08:43] LABS: Blood Urea Nitrogen 12 mg/dL (7-17); Calcium 8.9 mg/dL (8.4-10.2); Hemolysis Index 0
[2020-12-14 08:46] LABS: BUN/Creatinine Ratio 17
--- NOTE | 2020-12-14 10:46 | Progress Note ---
Assessment and Plan Cultures: Blood culture 12/06/2020 no growth 12/06/2020 urine culture: Usual skin korin 12/13/2020 blood culture: In process A/P: 35 yo F PMHx HIV, Dm2, CHF admitted with SOB, myalgias. #Bilateral PNA: CT shows bilateral groundglass opacities. Admitted with SOB and myalgias. Was seen here 3 weeks previously and tested negative for COVID then, treated empiric with abx. No improvement in symptoms, readmitted. CT without PE, but with worsening GGO bilaterally. Normal procalcitonin. Other viral etiology? Doubt opportunistic infection given historical excellent control of HIV. However patient noted with oral candidiasis no recent CD4 viral load. Noted mild hypoxia. She does not have any pets, and [place] in the city. No recent travel, no sick contacts. No travel to the [place]. LDH elevated. Status post bronchoscopy 12/12/2020, no gross endobronchial lesions were seen. Samples were collected. BAL prelim positive for PJP. As per discussion with patient, she r eports good compliance with her HIV medications. She used to be undetectable. She however admits to vaping daily since August 2020. Vaping induced lung injury is another possibility. #Acute hypoxic respiratory failure: secondary to above. #HIV: supposedly well controlled with Truvada, norvir, and darunavir. Has outpatient ID doc. Given evidence of thrush and PJP pneumonia, I doubt she has good control of HIV. #Oral candidiasis Recs: -per d/w Dr. Matos, BAL positive for PJP. D/W pharmacy, started IV Bactrim -f/u BAL cultures for fungi, AFB and routine -continue adjunctive steroids -h/o vaping, Vaping induced lung injury is another possibility -Continue fluconazole -Continue home ART: Truvada, Norvir, darunavir for now. -f/u HIV RNA PCR, CD4 count -Follow-up 1,3 [id number] -HIV genotype ordered d/w Dr. Naidu. Ashly Lindsay MD, FACP [facility] O: [phone] F: [phone] Subjective Date of service: 12/14/20 Principal diagnosis: HIV pneumonia Interval history: Febrile yesterday. Remains short of breath, on oxygen. PCP positive. As per discussion with patient, she reports good compliance with her HIV medications. She used to be undetectable. She however admits to vaping daily since August 2020. Vaping induced lung injury is another possibility. Objective - Exam Narrative Exam: Physical Exam: Constitutional: Alert, cooperative. No acute distress Head, Ears, Nose: Normocephalic, atraumatic. External ears, nose normal Eyes: Conjunctivae/corneas clear. No icterus. No ptosis. Neck: Supple, no meningeal signs Oral: Thrush present Cardiovascular: S1, S2 normal. Respiratory: Bilateral crackles GI: Soft, non-tender; bowel sounds normal. No peritoneal signs Musculoskeletal: No pedal edema, no cyanosis. Skin: No rash or abscess Hem/Lymphatic: No palpable cervical or supraclavicular nodes. No lymphangitis Psych: Mood ok. Affect normal Neurological: Awake, alert, oriented. No gross abnormality - Constitutional Vitals: Vital Signs Temp Pulse Resp BP Pulse Ox 98.6 F 112 H 20 127/76 96 12/14/20 03:55 12/14/20 08:23 12/14/20 09:23 12/14/20 03:55 12/14/20 09:23 Temperature -Last 24 Hours Temperature 98.6 F Temperature 99.1 F Temperature 98.4 F - Labs CBC & Chem 7: 12/14/20 07:15 12/14/20 07:15 Labs: Abnormal lab results 12/13/20 12/13/20 12/13/20 Range/Units 07:29 11:09 11:23 WBC 13.3 H (4.5-11.0) K/mm3 RBC (3.65-5.03) M/mm3 Hgb 9.3 L (10.1-14.3) gm/dl Hct 29.6 L (30.3-42.9) % MCV 76 L (79-97) fl MCH 24 L (28-32) pg Plt Count 653 H (140-440) K/mm3 [place] # (Auto) 0.9 H (0.0-0.8) K/mm3 Seg Neutrophils % 74.8 H (40.0-70.0) % Seg Neutrophils # 9.9 H (1.8-7.7) K/mm3 POC ABG pO2 (83-108) mmHg ABG Hemoglobin (12.0-17.5) ABG Oxyhemoglobin (94-98) ABG Sodium (136.0-145.0) mmol/L ABG Glucose (65-95) mg/dL Sodium (137-145) mmol/L Glucose (65-100) mg/dL POC Glucose 211 H 255 H (70-105) mg/dL Arterial Blood Glucose (65-95) mg/dL 12/13/20 12/13/20 12/13/20 Range/Units 15:33 16:00 20:59 WBC (4.5-11.0) K/mm3 RBC (3.65-5.03) M/mm3 Hgb (10.1-14.3) gm/dl Hct (30.3-42.9) % MCV (79-97) fl MCH (28-32) pg Plt Count (140-440) K/mm3 [place] # (Auto) (0.0-0.8) K/mm3 Seg Neutrophils % (40.0-70.0) % Seg Neutrophils # (1.8-7.7) K/mm3 POC ABG pO2 70.0 L (83-108) mmHg ABG Hemoglobin 10.4 L (12.0-17.5) ABG Oxyhemoglobin 93.9 L (94-98) ABG Sodium 131.5 L (136.0-145.0) mmol/L ABG Glucose 239 H (65-95) mg/dL Sodium (137-145) mmol/L Glucose (65-100) mg/dL POC Glucose 225 H 267 H (70-105) mg/dL Arterial Blood Glucose 239 H (65-95) mg/dL 12/14/20 12/14/20 12/14/20 Range/Units 07:15 07:15 07:41 WBC 11.5 H (4.5-11.0) K/mm3 RBC 3.54 L (3.65-5.03) M/mm3 Hgb 8.5 L (10.1-14.3) gm/dl Hct 26.5 L (30.3-42.9) % MCV 75 L (79-97) fl MCH 24 L (28-32) pg Plt Count 513 H (140-440) K/mm3 [place] # (Auto) (0.0-0.8) K/mm3 Seg Neutrophils % (40.0-70.0) % Seg Neutrophils # (1.8-7.7) K/mm3 POC ABG pO2 (83-108) mmHg ABG Hemoglobin (12.0-17.5) ABG Oxyhemoglobin (94-98) ABG Sodium (136.0-145.0) mmol/L ABG Glucose (65-95) mg/dL Sodium 134 L (137-145) mmol/L Glucose 154 H (65-100) mg/dL POC Glucose 162 H (70-105) mg/dL Arterial Blood Glucose (65-95) mg/dL
[2020-12-14] MEDS: ZINC SULFATE 220 MG CAP PO SCH ×2 (11:09→21:45)
[2020-12-14] MEDS: metFORMIN XR 500MG TAB PO SCH (11:09)
[2020-12-14] MEDS: ASCORBIC ACID 500 MG TAB PO SCH ×2 (11:10→21:44)
[2020-12-14] MEDS: INSULIN GLARGINE 100 UNITS/ML SUB-Q SCH (11:10)
[2020-12-14] MEDS: INSULIN LISPRO 100 UNIT/ML SUB-Q SCH ×4 (11:10→21:45)
--- NOTE | 2020-12-14 12:06 | Progress Note ---
Assessment and Plan Assessment and plan: 35-year-old female with history of HIV, type 2 diabetes and CHF comes in for 1 week of body aches cough and shortness of breath and low-grade fever. Cough is productive of mucoid sputum. Body aches are the most distressing symptom that she had. Patient is a poor historian.. Patient denies getting vaccination for coronavirus. Generalized abdominal pain. Shortness of breath present. Generalized malaise present. (1) Sepsis with acute hypoxic respiratory failure Current Visit: Yes Status: Acute Qualifiers: Severe sepsis shock status: unspecified Plan to address problem: Supplemental oxygen and keep the oxygen saturations above 92 Possible Covid pneumonia Treat for bilateral pneumonia and Covid pneumonia (2) Bilateral pneumonia Current Visit: Yes Status: Acute Plan to address problem: Treated as community-acquired pneumonia Coronavirus PCR requested IV Decadron initiated ID consult requested (3) CHF (congestive heart failure) Current Visit: No Status: Chronic Qualifiers: Heart failure type: combined systolic and diastolic Plan to address problem: Cardiogram for ejection fraction IV Lasix 40 mg every 24 (4) Person under investigation for COVID-19 Current Visit: Yes Status: Acute Plan to address problem: Coronavirus PCR requested IV Decadron initiated Zinc vitamin C and vitamin D initiated (5) HIV (human immunodeficiency virus infection) Current Visit: Yes Status: Chronic Qualifiers: HIV symptom status: asymptomatic, with no history of HIV-related illness Qualified Code(s): Z21 - Asymptomatic human immunodeficiency virus [HIV] infection status Plan to address problem: Patient on Zithromax (6) T2DM (type 2 diabetes mellitus) Current Visit: Yes Status: Chronic 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 Plan to address problem: Check hemoglobin A1c Accu-Cheks AC at bedtime Coverage as per moderate dose sliding scale Continue Metformin (7) DVT prophylaxis Current Visit: Yes Status: Acute Plan to address problem: On Lovenox and GI prophylaxis (8) Anemia Current Visit: Yes Status: Chronic Qualifiers: Anemia type: iron deficiency Plan to address problem: Probable iron deficiency anemia: Check iron levels B12 and folic acid (9) DVT prophylaxis Current Visit: No Status: Acute Plan to address problem: Lovenox and GI prophylaxis 12/07/2020 -COVID-19 test is pending -Continue with IV antibiotics for now, follow procalcitonin level -ID consulted. -Patient's hemoglobin A1c is 8.2 -HIV; patient will follow with ID 12/08/2020 -CTA showed worsening of her groundglass opacities -COVID-19 test was negative -ID consulted and recommend to continue with antibiotics for now -Patient is on her HIV medications -Patient will oxygen saturation dropped to 85% on ambulation and patient require oxygen at discharge -I put a consult for pulmonary 12/09/2020 -Patient's proBNP is normal, pulmonary ordered echo. Patient states she has history of CHF and told me she was diagnosed in this hospital but I check her records and there is no echo report. -Home oxygen arranged. 12/10/2020 -Echo showed no CHF. Patient was seen by ID and started the patient on Bactrim for suspected PCP, and fluconazole for oral candidiasis. We going to follow Fungitell and induced sputum for PCP. Patient has hyperglycemia and added 15 units of Lantus, change Solu-Medrol to prednisone 40 mg daily. Disposition is per pulmonary and ID recommendation 12/11/2020; patient is on Bactrim and fluconazole per ID recommendation. Patient is on steroid per pulmonary recommendation. Induced sputum for PCP was ordered but there was no collected, in detail was ordered. Patient's blood sugar is uncontrolled and I increase Lantus from 15 to 25 units, change sliding scale from moderate to high dose. Continue to monitor and adjust as needed. Disposition is per pulmonary and ID recommendation. Pulmonary evaluated and recommendations as follows: Patient has been scheduled for bronchoscopy with TBBx, cytology brushings, BAL tomorrow at 1pm. Patient is NPO from midnight. Enoxaparin has been stopped. Start D51/2Nsaline at midnight. 12/12: Still with generalized body pain, Bronch today, Will monitor, Pain control. lethargic, awaiting 12/13: Continue supportive care, ID input noted, patient is post Bronchosocpy 12/12- Awaiting microdata and serologies. CONTINUE PAIN CONTROL 12/14: Patient noted with worsening respiratory distress and hypoxia, chest x-ray otherwise shows improvement in symptoms. I encouraged the patient to prone herself during hours of sleep. To use pillows across her chest with deep breaths and practice incentive spirometer. We will continue to monitor wean oxygen as tolerated. Continue awaiting cultures from recent bronchoscopy History Interval history: Patient seen and examined, this morning was noted to be on high flow oxygen with FiO2 of 70%. While stabilizing no visible acute distress she has shallow breaths. Hospitalist Physical - Physical exam Narrative exam: VITAL SIGNS: Reviewed. GENERAL: The patient appears normally developed but ill-appearing on high flow, lethargic vital signs as documented. HEAD: No signs of head trauma. EYES: Pupils are equal. Extraocular motions intact. EARS: Hearing grossly intact. MOUTH: Oropharynx is normal. NECK: No adenopathy, no JVD. CHEST: Chest with diminished breath sounds bilaterally with otherwise crackles. No wheezes. CARDIAC: Regular rate and rhythm. S1 and S2, without murmurs, gallops, or rubs. VASCULAR: No Edema. Peripheral pulses normal and equal in all extremities. ABDOMEN: Soft, non tender and non distended. No rebound or guarding, and no masses palpated. Bowel Sounds normal. MUSCULOSKELETAL: Good range of motion of all major joints. Extremities without clubbing, cyanosis or edema. NEUROLOGIC EXAM: Awake but lethargic oriented x 3 No focal sensory or strength deficits. Speech normal. Follows commands. PSYCHIATRIC: Mood normal. SKIN: detail exam as documented in skin assessment - Constitutional Vitals: Temp Pulse Resp BP Pulse Ox 98.6 F 112 H 20 127/76 96 12/14/20 03:55 12/14/20 08:23 12/14/20 09:23 12/14/20 03:55 12/14/20 09:23 General appearance: Present: mild distress, well-nourished HEART Score - HEART Score Troponin: Troponin T < 0.010 ng/mL (0.00-0.029) 12/06/20 14:04 Results - Labs CBC & Chem 7: 12/14/20 07:15 12/14/20 07:15 Labs: Laboratory Last Values WBC 11.5 K/mm3 (4.5-11.0) H 12/14/20 07:15 RBC 3.54 M/mm3 (3.65-5.03) L 12/14/20 07:15 Hgb 8.5 gm/dl (10.1-14.3) L 12/14/20 07:15 Hct 26.5 % (30.3-42.9) L 12/14/20 07:15 MCV 75 fl (79-97) L 12/14/20 07:15 MCH 24 pg (28-32) L 12/14/20 07:15 MCHC 32 % (30-34) 12/14/20 07:15 RDW 14.3 % (13.2-15.2) 12/14/20 07:15 Plt Count 513 K/mm3 (140-440) H 12/14/20 07:15 Lymph % (Auto) 16.1 % (13.4-35.0) 12/13/20 11:09 Coleman % (Auto) 7.0 % (0.0-7.3) 12/13/20 11:09 Eos % (Auto) 1.8 % (0.0-4.3) 12/13/20 11:09 Baso % (Auto) 0.3 % (0.0-1.8) 12/13/20 11:09 Lymph # (Auto) 2.1 K/mm3 (1.2-5.4) 12/13/20 11:09 Coleman # (Auto) 0.9 K/mm3 (0.0-0.8) H 12/13/20 11:09 Eos # (Auto) 0.2 K/mm3 (0.0-0.4) 12/13/20 11:09 Baso # (Auto) 0.0 K/mm3 (0.0-0.1) 12/13/20 11:09 Seg Neutrophils % 74.8 % (40.0-70.0) H 12/13/20 11:09 Seg Neutrophils # 9.9 K/mm3 (1.8-7.7) H 12/13/20 11:09 D-Dimer 185.58 ng/mlDDU (0-234) 12/06/20 15:24 ABG pH 7.441 (7.320-7.450) 12/13/20 15:33 POC ABG pCO2 33.7 mmHg (32.0-48.0) 12/13/20 15:33 POC ABG pO2 70.0 mmHg (83-108) L 12/13/20 15:33 POC ABG HCO3 22.4 12/13/20 15:33 ABG O2 Saturation 94.9 (0-100) 12/13/20 15:33 POC ABG Base Excess -1.2 12/13/20 15:33 ABG Hemoglobin 10.4 (12.0-17.5) L 12/13/20 15:33 ABG Oxyhemoglobin 93.9 (94-98) L 12/13/20 15:33 ABG Methemoglobin 0.3 (0.0-1.5) 12/13/20 15:33 ABG Sodium 131.5 mmol/L (136.0-145.0) L 12/13/20 15:33 ABG Potassium 4.0 mmol/L (3.40-4.50) 12/13/20 15:33 ABG Chloride 100.0 mmol/L (98-107) 12/13/20 15:33 ABG Glucose 239 mg/dL (65-95) H 12/13/20 15:33 Carboxyhemoglobin 0.8 (0.5-1.5) 12/13/20 15:33 FiO2 % 40.0 12/13/20 15:33 Sodium 134 mmol/L (137-145) L 12/14/20 07:15 Potassium 4.5 mmol/L (3.6-5.0) 12/14/20 07:15 Chloride 99.1 mmol/L (98-107) 12/14/20 07:15 Carbon Dioxide 25 mmol/L (22-30) 12/14/20 07:15 Anion Gap 14 mmol/L 12/14/20 07:15 BUN 12 mg/dL (7-17) 12/14/20 07:15 Creatinine 0.7 mg/dL (0.6-1.2) 12/14/20 07:15 Estimated GFR > 60 ml/min 12/14/20 07:15 BUN/Creatinine Ratio 17 % 12/14/20 07:15 Glucose 154 mg/dL (65-100) H 12/14/20 07:15 POC Glucose 260 mg/dL (70-105) H 12/14/20 11:58 Hemoglobin A1c 8.2 % (4-6) H 12/07/20 02:12 Lactic Acid 1.10 mmol/L (0.7-2.0) 12/06/20 23:55 Calcium 8.9 mg/dL (8.4-10.2) 12/14/20 07:15 Iron 22 ug/dL (37-170) L 12/07/20 07:28 TIBC 341 mcg/dL (250-450) 12/07/20 07:28 % Saturation 6.45 % 12/07/20 07:28 Transferrin 292 mg/dl (192-382) 12/07/20 07:28 Ferritin 40.7 ng/mL (10.0-200.0) 12/06/20 15:24 Total Bilirubin 0.40 mg/dL (0.1-1.2) 12/07/20 02:12 AST 26 units/L (5-40) 12/07/20 02:12 ALT 9 units/L (7-56) 12/07/20 02:12 Alkaline Phosphatase 94 units/L (35-129) 12/07/20 02:12 Lactate Dehydrogenase 273 units/L (91-180) H 12/09/20 13:32 Troponin T < 0.010 ng/mL (0.00-0.029) 12/06/20 14:04 C-Reactive Protein 7.10 mg/dL (0.00-1.30) H 12/06/20 15:24 NT-Pro-B Natriuret Pep 150.7 pg/mL (0-450) 12/09/20 00:43 Total Protein 8.3 g/dL (6.3-8.2) H 12/07/20 02:12 Albumin 3.2 g/dL (3.9-5) L 12/07/20 02:12 Albumin/Globulin Ratio 0.6 % 12/07/20 02:12 Vitamin B12 304.1 pg/mL (211-911) 12/07/20 07:28 RBC Folic Acid 711 ng/mL (>280) 12/07/20 07:28 Procalcitonin < 0.05 ng/mL (<0.15) 12/06/20 15:24 HCG, Qual Negative (Negative) 12/06/20 14:04 Arterial Blood Glucose 239 mg/dL (65-95) H 12/13/20 15:33 Arterial Blood Ionized Calcium 4.7 mg/dL (4.6-5.3) 12/13/20 15:33 Urine Color Yellow (Yellow) 12/07/20 Unknown Urine Turbidity Clear (Clear) 12/07/20 Unknown Urine pH 7.0 (5.0-7.0) 12/07/20 Unknown Ur Specific [place] 1.017 (1.003-1.030) 12/07/20 Unknown Urine Protein <15 mg/dl mg/dL (Negative) 12/07/20 Unknown Urine Glucose (UA) 150 mg/dL (Negative) 12/07/20 Unknown Urine Ketones Neg mg/dL (Negative) 12/07/20 Unknown Urine Blood Neg (Negative) 12/07/20 Unknown Urine Nitrite Neg (Negative) 12/07/20 Unknown Urine Bilirubin Neg (Negative) 12/07/20 Unknown Urine Urobilinogen 2.0 mg/dL (<2.0) 12/07/20 Unknown Ur Leukocyte Esterase Neg (Negative) 12/07/20 Unknown Urine WBC (Auto) < 1.0 /HPF (0.0-6.0) 12/07/20 Unknown Urine RBC (Auto) 1.0 /HPF (0.0-6.0) 12/07/20 Unknown U Epithel Cells (Auto) 6.0 /HPF (0-13.0) 12/07/20 Unknown Coronavirus (PCR) Negative (Negative) 12/06/20 08:46 Microbiology: Microbiology 12/13/20 08:19 Peripheral/Venous Blood Culture - Preliminary NO GROWTH AFTER 24 HOURS 12/13/20 11:09 Peripheral/Venous Blood Culture - Preliminary Culture in Progress Santiago/IV: Voiding Method Toilet Active Medications - Current Medications Current Medications: Generic Name Dose Route Start Last Admin Trade Name Freq PRN Reason Stop Dose Admin Acetaminophen 650 mg 12/06/20 21:36 Acetaminophen 325 Mg Tab PO Q4H PRN Pain MILD(1-3)/Fever >100.5/RODRIGUES Acetaminophen 650 mg 12/13/20 04:50 Acetaminophen 650 Mg Rect Supp ND Q4H PRN Pain, Mild (1-3) Albuterol/Ipratropium 1 ampul 12/07/20 08:00 12/14/20 08:23 Ipratropium/Albuterol Sulfate 3 Ml Ampul.Neb IH 1 ampul TIDRT DARYA Administration Ascorbic Acid 1,000 mg 12/06/20 22:00 12/14/20 11:10 Ascorbic Acid 500 Mg Tab PO 1,000 mg BID DARYA Administration Cholecalciferol 5,000 unit 12/06/20 22:00 12/13/20 12:26 Cholecalciferol (Vit D3) 5,000 Unit Tab PO 5,000 unit DAILY DARYA Administration Darunavir 800 mg 12/07/20 16:00 12/13/20 12:33 Darunavir 800 Mg Tab PO 800 mg QDAY DARYA Administration Emtricitabine 200 mg 12/07/20 16:00 12/13/20 12:29 Emtricitabine 200 Mg Cap PO 200 mg QDAY DARYA Administration Famotidine 20 mg 12/06/20 22:00 12/13/20 21:31 Famotidine 20 Mg Tab PO 20 mg BID DARYA Administration Fluconazole 200 mg 12/09/20 13:00 12/13/20 12:29 Fluconazole 200 Mg Tab PO 200 mg QDAY DARYA Administration Protocol Guaifenesin 200 mg 12/06/20 23:59 12/10/20 22:01 Guaifenesin 100 Mg/5 Ml Oral Liqd PO 200 mg Q8H PRN Administration Cough Sodium Chloride 1,000 mls @ 100 mls/hr 12/13/20 05:00 12/13/20 12:24 Nacl 0.9% 1000 Ml IV 100 mls/hr DIRECT DARYA Administration Trimethoprim/Sulfamethoxazole 528.125 mls @ 350 mls/hr 12/14/20 10:00 450 mg/ Dextrose IV Q8H [facility] Protocol Insulin Glargine 25 units 12/12/20 08:00 12/14/20 11:10 Insulin Glargine 100 Units/Ml SUB-Q 25 units QACOIAB [facility] Administration Insulin Human Lispro 0 unit 12/09/20 22:00 12/14/20 11:10 Insulin Lispro 100 Unit/Ml SUB-Q 2 unit ACHS DARYA Administration Protocol Metformin HCl 500 mg 12/06/20 21:30 12/14/20 11:09 Metformin Xr 500mg Tab PO 500 mg QAMDIAB DARYA Administration Metoclopramide HCl 10 mg 12/06/20 21:36 12/13/20 22:35 Metoclopramide 10 Mg/2 Ml Inj IV 10 mg Q6H PRN Administration Nausea And Vomiting Morphine Sulfate 2 mg 12/12/20 14:28 12/14/20 05:48 Morphine 2 Mg/1 Ml Inj IV 2 mg Q4H PRN Administration Pain, Moderate (4-6) Ondansetron HCl 4 mg 12/06/20 21:36 Ondansetron 4 Mg/2 Ml Inj IV Q8H PRN Nausea And Vomiting Oxycodone/Acetaminophen 2 tab 12/07/20 18:00 12/13/20 08:43 Oxycodone /Acetaminophen 5-325mg Tab PO 2 tab Q6H PRN Administration Pain, Moderate (4-6) Polyethylene Glycol 17 gm 12/11/20 18:05 12/11/20 18:24 Polyethylene Glycol 3350 17 Gm Powder PO 17 gm QDAY PRN Administration Constipation Prednisone 40 mg 12/10/20 22:00 12/13/20 21:31 Prednisone 20 Mg Tab PO 12/15/20 10:01 40 mg BID DARYA Administration Prednisone 40 mg 12/16/20 10:00 Prednisone 20 Mg Tab PO 12/20/20 10:01 QDAY DARYA Prednisone 20 mg 12/21/20 10:00 Prednisone 10 Mg Tab PO 12/31/20 10:01 QDAY DARYA Ritonavir 100 mg 12/07/20 16:00 12/13/20 10:00 Ritonavir 100 Mg Tab PO Not Given QDAY DARYA Sodium Chloride 10 ml 12/06/20 22:00 12/13/20 21:31 Sodium Chloride 0.9% 10 Ml Flush Syringe IV 10 ml BID DARYA Administration Sodium Chloride 10 ml 12/06/20 21:36 Sodium Chloride 0.9% 10 Ml Flush Syringe IV PRN PRN LINE FLUSH Tenofovir Disoproxil Fumarate 300 mg 12/07/20 16:00 12/13/20 12:29 Tenofovir 300 Mg Tab PO 300 mg QDAY DARYA Administration Tramadol HCl 50 mg 12/06/20 21:21 Tramadol 50 Mg Tab PO Q8H PRN PAIN (4-6) Zinc Sulfate 220 mg 12/06/20 22:00 12/14/20 11:09 Zinc Sulfate 220 Mg Cap PO 220 mg BID DARYA Administration Zolpidem Tartrate 5 mg 12/07/20 22:00 12/12/20 21:10 Zolpidem 5 Mg Tab PO 5 mg QHS PRN Administration Sleep Nutrition/Malnutrition Assess - Dietary Evaluation Nutrition/Malnutrition Findings: Nutrition Notes Start: 12/07/20 15:58 Freq: Status: Active Protocol: Document 12/13/20 14:26 (Rec: 12/13/20 14:32 AMOL [id number]) Nutrition Notes Need for Assessment generated from: LOS Initial or Follow up Brief Note Current Diagnosis Diabetes,Sepsis,Heart Failure, Respiratory Failure Other Pertinent Diagnosis pneu Current Diet Consistent CHO, vegetarian Labs/Tests POC 255 Pertinent Medications Prednisone NS at 100 ml/hr Height 5 ft 7 in Weight 88.2 kg Usual Body Weight 87.7 kg [place] Body Weight (kg) 61.36 BMI 30.4 Weight Status Obese Subjective/Other Information Screen for LOS. Pt reports eating 50 of meals depending on what it is and her pain level. Pt open to ONS BID to help meet protein needs. Burn Absent Trauma Absent Current % PO Fair (50-74%) Minimum of two criteria No #1 Nutrition Diagnosis Inadequate oral intake Etiology pain and food prefrences As Evidenced by Signs and Symptoms pt eating 50% of meals Is patient on ventilator? No Is Patient Ambulatory and/or Out of Bed No REE-([facility]-confined to bed) 1939.752 Kcal/Kg value to use for calculation 19 Approximate Energy Requirements Using 1676 kcal/Kg Additional Notes Protein: (0.8-1g/kg AdjBW: 75kg) 60-75g Fluid: 1ml/kcal or per MD Nutrition Intervention Change Diet Order: Continue Add Supplement/Snack (indicate name/kcal Glucerna BID /protein ) Provides kCal: 440 Provides Protein (gm) 20 Goal #1 Meet at least 75% of protein and energy needs Follow-Up By: 12/15/20 Additional Comments FU for intakes and ONS tolerance
[2020-12-14] MEDS: FAMOTIDINE 20 MG TAB PO SCH ×2 (12:29→21:45)
[2020-12-14] MEDS: CHOLECALCIFEROL (VIT D3) 5,000 UNIT TAB PO SCH (12:33)
[2020-12-14] MEDS: DEXTROSE 5% IV SCH ×2 (12:35→18:51)
[2020-12-14] MEDS: WATER IV SCH ×2 (12:35→18:51)
[2020-12-14] MEDS: SMX IV SCH ×2 (12:35→18:51)
[2020-12-14] MEDS: predniSONE 20 MG TAB PO SCH ×2 (12:35→21:45)
[2020-12-14] MEDS: TMP IV SCH ×2 (12:35→18:51)
[2020-12-14] MEDS: EMTRICITABINE 200 MG CAP PO SCH (12:37)
[2020-12-14] MEDS: TENOFOVIR 300 MG TAB PO SCH (12:37)
[2020-12-14] MEDS: FLUCONAZOLE 200 MG TAB PO SCH (12:37)
[2020-12-14] MEDS: RITONAVIR 100 MG TAB PO SCH (12:38)
[2020-12-14] MEDS: DARUNAVIR 800 MG TAB PO SCH (12:38)
--- NOTE | 2020-12-14 13:09 | Progress Note ---
Assessment and Plan Severe Sepsis Acute hypoxic respiratory failure Bilateral pneumonia (PJP Pneumonia) CHF PUI COVID-19 HIV DM II Anemia - therapy for severe PJP pneumonia started - follow other bronch results including special stains (5-7 days) - continue to wean supplemental oxygen to keep O2 sats > 90% - prn NIV for increased work of breathing - Bronchodilators (HILDA) with pulm hygiene per RT - continue systemic steroids - continue to avoid nephrotoxins, renally dose all medications - mobility protocols to prevent pressure ulcers - PT/OT as tolerated - Wound care per RN/WCT - continue accuchecks with glycemic control per SSI for target blood glucose < 180 mg/dL - tobacco abstinence strongly counseled at the bedside - home oxygen evaluation at discharge - prn analgesia per pain score - GI & VTE prophylaxis - Flu & pneumovax per protocol - Pulmonary out patient follow up for PFTs and optimization of respiratory status - continue other care per attending / other consultants ... re-evaluate in am & prn Subjective Date of service: 12/14/20 Principal diagnosis: Sepsis; Ac hypoxemic resp failure; PJP Pneumonia; CHF; PUI COVID-19; HIV+ve Interval history: Patient is seen today for: Sepsis; Acute hypoxemic respiratory failure; Bilateral pneumonia (PJP Pneumonia); CHF; PUI COVID-19; HIV +ve; DM II Seen and examined at bedside; 24hour events reviewed; nursing and respiratory care staff consulted; no adverse overnight events reported to me; resting peacefully in bed; FiO2 at 50%; feels a little better; denies hemoptysis Objective Vital Signs - 12hr 12/14/20 12/14/20 12/14/20 01:39 03:55 05:00 Temperature 98.6 F Pulse Rate 88 Pulse Rate [ Bilateral] Respiratory 20 Rate Respiratory Rate [Bilateral ] Blood Pressure 127/76 O2 Sat by Pulse 95 98 96 Oximetry 12/14/20 12/14/20 12/14/20 08:23 09:23 12:36 Temperature Pulse Rate Pulse Rate [ 112 H Bilateral] Respiratory 20 20 Rate Respiratory 16 Rate [Bilateral ] Blood Pressure O2 Sat by Pulse 84 96 Oximetry Constitutional: no acute distress, alert Eyes: non-icteric ENT: oropharynx moist, other (oral candidiasis) Neck: supple, no lymphadenopathy, no JVD Effort: mildly labored Ascultation: Bilateral: diminished breath sounds, rales Percussion: Bilateral: not dull Cardiovascular: regular rate and rhythm, other (S1,S2) Gastrointestinal: normoactive bowel sounds, soft, non-tender, non-distended Integumentary: normal Extremities: no cyanosis, no edema, pulses normal, no ischemia or petechiae Neurologic: normal mental status, non-focal exam, pupils equal and round, CN II- XII normal, motor strength normal and (but wekness) Psychiatric: mood appropriate, affect normal CBC and BMP: 12/14/20 07:15 12/14/20 07:15 ABG, PT/INR, D-dimer: ABG ABG pH 7.441 (7.320-7.450) 12/13/20 15:33 POC ABG pCO2 33.7 mmHg (32.0-48.0) 12/13/20 15:33 POC ABG pO2 70.0 mmHg (83-108) L 12/13/20 15:33 POC ABG HCO3 22.4 12/13/20 15:33 ABG O2 Saturation 94.9 (0-100) 12/13/20 15:33 PT/INR, D-dimer D-Dimer 185.58 ng/mlDDU (0-234) 12/06/20 15:24 Abnormal lab findings: Abnormal Labs 12/06/20 12/06/20 12/06/20 14:04 14:04 15:24 WBC RBC 3.57 L Hgb 8.8 L Hct 27.3 L MCV 76 L MCH 25 L Plt Count Ward % (Auto) 8.5 H Ward # (Auto) Seg Neutrophils % Seg Neutrophils # POC ABG pO2 ABG Hemoglobin ABG Oxyhemoglobin ABG Sodium ABG Glucose Carboxyhemoglobin Sodium 136 L Glucose 149 H POC Glucose Hemoglobin A1c Calcium Iron Lactate Dehydrogenase 418 H C-Reactive Protein 7.10 H Total Protein 8.6 H Albumin 2.9 L Arterial Blood Glucose 12/07/20 12/07/20 12/07/20 02:12 02:12 02:12 WBC RBC 3.61 L Hgb 9.2 L Hct 27.8 L MCV 77 L MCH 26 L Plt Count Ward % (Auto) 9.4 H Ward # (Auto) Seg Neutrophils % Seg Neutrophils # POC ABG pO2 ABG Hemoglobin ABG Oxyhemoglobin ABG Sodium ABG Glucose Carboxyhemoglobin Sodium Glucose 123 H POC Glucose Hemoglobin A1c 8.2 H Calcium 8.3 L Iron Lactate Dehydrogenase C-Reactive Protein Total Protein 8.3 H Albumin 3.2 L Arterial Blood Glucose 12/07/20 12/07/20 12/07/20 07:28 07:48 11:48 WBC RBC Hgb Hct MCV MCH Plt Count Ward % (Auto) Ward # (Auto) Seg Neutrophils % Seg Neutrophils # POC ABG pO2 ABG Hemoglobin ABG Oxyhemoglobin ABG Sodium ABG Glucose Carboxyhemoglobin Sodium Glucose POC Glucose 290 H 217 H Hemoglobin A1c Calcium Iron 22 L Lactate Dehydrogenase C-Reactive Protein Total Protein Albumin Arterial Blood Glucose 12/07/20 12/07/20 12/08/20 16:46 22:36 08:50 WBC RBC Hgb Hct MCV MCH Plt Count Ward % (Auto) Ward # (Auto) Seg Neutrophils % Seg Neutrophils # POC ABG pO2 ABG Hemoglobin ABG Oxyhemoglobin ABG Sodium ABG Glucose Carboxyhemoglobin Sodium Glucose POC Glucose 203 H 189 H 293 H Hemoglobin A1c Calcium Iron Lactate Dehydrogenase C-Reactive Protein Total Protein Albumin Arterial Blood Glucose 12/08/20 12/08/20 12/08/20 11:35 16:18 16:39 WBC RBC Hgb Hct MCV MCH Plt Count Ward % (Auto) Ward # (Auto) Seg Neutrophils % Seg Neutrophils # POC ABG pO2 ABG Hemoglobin 9.4 L ABG Oxyhemoglobin ABG Sodium 132.7 L ABG Glucose 303 H Carboxyhemoglobin 0.4 L Sodium Glucose POC Glucose 360 H 288 H Hemoglobin A1c Calcium Iron Lactate Dehydrogenase C-Reactive Protein Total Protein Albumin Arterial Blood Glucose 303 H 12/08/20 12/09/20 12/09/20 21:08 13:32 21:43 WBC RBC Hgb Hct MCV MCH Plt Count Ward % (Auto) Ward # (Auto) Seg Neutrophils % Seg Neutrophils # POC ABG pO2 ABG Hemoglobin ABG Oxyhemoglobin ABG Sodium ABG Glucose Carboxyhemoglobin Sodium Glucose POC Glucose 300 H 394 H Hemoglobin A1c Calcium Iron Lactate Dehydrogenase 273 H C-Reactive Protein Total Protein Albumin Arterial Blood Glucose 12/10/20 12/10/20 12/10/20 07:37 11:04 15:37 WBC RBC Hgb Hct MCV MCH Plt Count Ward % (Auto) Ward # (Auto) Seg Neutrophils % Seg Neutrophils # POC ABG pO2 ABG Hemoglobin ABG Oxyhemoglobin ABG Sodium ABG Glucose Carboxyhemoglobin Sodium Glucose POC Glucose 431 H 386 H 339 H Hemoglobin A1c Calcium Iron Lactate Dehydrogenase C-Reactive Protein Total Protein Albumin Arterial Blood Glucose 12/10/20 12/11/20 12/11/20 21:09 07:24 10:56 WBC RBC Hgb Hct MCV MCH Plt Count Ward % (Auto) Ward # (Auto) Seg Neutrophils % Seg Neutrophils # POC ABG pO2 ABG Hemoglobin ABG Oxyhemoglobin ABG Sodium ABG Glucose Carboxyhemoglobin Sodium Glucose POC Glucose 412 H 399 H 431 H Hemoglobin A1c Calcium Iron Lactate Dehydrogenase C-Reactive Protein Total Protein Albumin Arterial Blood Glucose 12/11/20 12/11/20 12/12/20 16:26 22:31 00:53 WBC RBC Hgb Hct MCV MCH Plt Count Ward % (Auto) Ward # (Auto) Seg Neutrophils % Seg Neutrophils # POC ABG pO2 ABG Hemoglobin ABG Oxyhemoglobin ABG Sodium ABG Glucose Carboxyhemoglobin Sodium Glucose POC Glucose 320 H 361 H 255 H Hemoglobin A1c Calcium Iron Lactate Dehydrogenase C-Reactive Protein Total Protein Albumin Arterial Blood Glucose 12/12/20 12/12/20 12/12/20 07:16 10:47 16:40 WBC RBC Hgb Hct MCV MCH Plt Count Ward % (Auto) Ward # (Auto) Seg Neutrophils % Seg Neutrophils # POC ABG pO2 ABG Hemoglobin ABG Oxyhemoglobin ABG Sodium ABG Glucose Carboxyhemoglobin Sodium Glucose POC Glucose 171 H 156 H 146 H Hemoglobin A1c Calcium Iron Lactate Dehydrogenase C-Reactive Protein Total Protein Albumin Arterial Blood Glucose 12/12/20 12/13/20 12/13/20 22:04 07:29 11:09 WBC 13.3 H RBC Hgb 9.3 L Hct 29.6 L MCV 76 L MCH 24 L Plt Count 653 H Ward % (Auto) Ward # (Auto) 0.9 H Seg Neutrophils % 74.8 H Seg Neutrophils # 9.9 H POC ABG pO2 ABG Hemoglobin ABG Oxyhemoglobin ABG Sodium ABG Glucose Carboxyhemoglobin Sodium Glucose POC Glucose 214 H 211 H Hemoglobin A1c Calcium Iron Lactate Dehydrogenase C-Reactive Protein Total Protein Albumin Arterial Blood Glucose 12/13/20 12/13/20 12/13/20 11:23 15:33 16:00 WBC RBC Hgb Hct MCV MCH Plt Count Ward % (Auto) Ward # (Auto) Seg Neutrophils % Seg Neutrophils # POC ABG pO2 70.0 L ABG Hemoglobin 10.4 L ABG Oxyhemoglobin 93.9 L ABG Sodium 131.5 L ABG Glucose 239 H Carboxyhemoglobin Sodium Glucose POC Glucose 255 H 225 H Hemoglobin A1c Calcium Iron Lactate Dehydrogenase C-Reactive Protein Total Protein Albumin Arterial Blood Glucose 239 H 12/13/20 12/14/20 12/14/20 20:59 07:15 07:15 WBC 11.5 H RBC 3.54 L Hgb 8.5 L Hct 26.5 L MCV 75 L MCH 24 L Plt Count 513 H Ward % (Auto) Ward # (Auto) Seg Neutrophils % Seg Neutrophils # POC ABG pO2 ABG Hemoglobin ABG Oxyhemoglobin ABG Sodium ABG Glucose Carboxyhemoglobin Sodium 134 L Glucose 154 H POC Glucose 267 H Hemoglobin A1c Calcium Iron Lactate Dehydrogenase C-Reactive Protein Total Protein Albumin Arterial Blood Glucose 12/14/20 12/14/20 07:41 11:58 WBC RBC Hgb Hct MCV MCH Plt Count Ward % (Auto) Ward # (Auto) Seg Neutrophils % Seg Neutrophils # POC ABG pO2 ABG Hemoglobin ABG Oxyhemoglobin ABG Sodium ABG Glucose Carboxyhemoglobin Sodium Glucose POC Glucose 162 H 260 H Hemoglobin A1c Calcium Iron Lactate Dehydrogenase C-Reactive Protein Total Protein Albumin Arterial Blood Glucose Chest x-ray: other (none today) Allied health notes reviewed: nursing
[2020-12-14] MEDS: ONDANSETRON 4 MG/2 ML INJ IV PRN (18:34)
[2020-12-14] MEDS: oxyCODONE /ACETAMINOPHEN 5-325MG TAB PO PRN (21:44)
[2020-12-14] MEDS: ZOLPIDEM 5 MG TAB PO PRN (21:45)
[2020-12-15 00:11] LABS: ANA Screen, IFA Negative (Negative)
[2020-12-15] MEDS: MORPHINE 2 MG/1 ML INJ IV PRN ×3 (00:28→23:07)
[2020-12-15] MEDS: DEXTROSE 5% IV SCH ×3 (02:11→17:22)
[2020-12-15] MEDS: TMP IV SCH ×3 (02:11→17:22)
[2020-12-15] MEDS: SMX IV SCH ×3 (02:11→17:22)
[2020-12-15] MEDS: WATER IV SCH ×3 (02:11→17:22)
[2020-12-15] MEDS: guaiFENesin 100 MG/5 ML ORAL LIQD PO PRN (06:06)
[2020-12-15] MEDS: SODIUM CHLORIDE 0.9% 1000 ML 1,000 ML IV SCH ×3 (06:07→22:42)
[2020-12-15] MEDS: IPRATROPIUM/ALBUTEROL SULFATE 3 ML AMPUL.NEB IH SCH ×3 (08:35→20:32)
[2020-12-15] MEDS: INSULIN GLARGINE 100 UNITS/ML SUB-Q SCH (08:47)
[2020-12-15] MEDS: metFORMIN XR 500MG TAB PO SCH (08:48)
[2020-12-15] MEDS: INSULIN LISPRO 100 UNIT/ML SUB-Q SCH ×4 (08:48→22:43)
[2020-12-15] MEDS: predniSONE 20 MG TAB PO SCH (10:15)
[2020-12-15] MEDS: ASCORBIC ACID 500 MG TAB PO SCH ×2 (10:15→22:43)
[2020-12-15] MEDS: RITONAVIR 100 MG TAB PO SCH (10:16)
[2020-12-15] MEDS: FAMOTIDINE 20 MG TAB PO SCH ×2 (10:16→22:43)
[2020-12-15] MEDS: EMTRICITABINE 200 MG CAP PO SCH (10:16)
[2020-12-15] MEDS: DARUNAVIR 800 MG TAB PO SCH (10:16)
[2020-12-15] MEDS: FLUCONAZOLE 200 MG TAB PO SCH (10:16)
[2020-12-15] MEDS: CHOLECALCIFEROL (VIT D3) 5,000 UNIT TAB PO SCH (10:17)
[2020-12-15] MEDS: TENOFOVIR 300 MG TAB PO SCH (10:17)
[2020-12-15] MEDS: ZINC SULFATE 220 MG CAP PO SCH ×2 (10:17→22:44)
--- NOTE | 2020-12-15 10:52 | Progress Note ---
Assessment and Plan Assessment and plan: 35-year-old female with history of HIV, type 2 diabetes and CHF comes in for 1 week of body aches cough and shortness of breath and low-grade fever. Cough is productive of mucoid sputum. Body aches are the most distressing symptom that she had. Patient is a poor historian.. Patient denies getting vaccination for coronavirus. Generalized abdominal pain. Shortness of breath present. Generalized malaise present. (1) Sepsis with acute hypoxic respiratory failure Current Visit: Yes Status: Acute Qualifiers: Severe sepsis shock status: unspecified Plan to address problem: Supplemental oxygen and keep the oxygen saturations above 92 Possible Covid pneumonia Treat for bilateral pneumonia and Covid pneumonia (2) Bilateral pneumonia Current Visit: Yes Status: Acute Plan to address problem: Treated as community-acquired pneumonia Coronavirus PCR requested IV Decadron initiated ID consult requested (3) CHF (congestive heart failure) Current Visit: No Status: Chronic Qualifiers: Heart failure type: combined systolic and diastolic Plan to address problem: Cardiogram for ejection fraction IV Lasix 40 mg every 24 (4) Person under investigation for COVID-19 Current Visit: Yes Status: Acute Plan to address problem: Coronavirus PCR requested IV Decadron initiated Zinc vitamin C and vitamin D initiated (5) HIV (human immunodeficiency virus infection) Current Visit: Yes Status: Chronic Qualifiers: HIV symptom status: asymptomatic, with no history of HIV-related illness Qualified Code(s): Z21 - Asymptomatic human immunodeficiency virus [HIV] infection status Plan to address problem: Patient on Zithromax (6) T2DM (type 2 diabetes mellitus) Current Visit: Yes Status: Chronic Qualifiers: Diabetes mellitus 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 insulin use: 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 Plan to address problem: Check hemoglobin A1c Accu-Cheks AC at bedtime Coverage as per moderate dose sliding scale Continue Metformin (7) DVT prophylaxis Current Visit: Yes Status: Acute Plan to address problem: On Lovenox and GI prophylaxis (8) Anemia Current Visit: Yes Status: Chronic Qualifiers: Anemia type: iron deficiency Plan to address problem: Probable iron deficiency anemia: Check iron levels B12 and folic acid (9) DVT prophylaxis Current Visit: No Status: Acute Plan to address problem: Lovenox and GI prophylaxis 12/07/2020 -COVID-19 test is pending -Continue with IV antibiotics for now, follow procalcitonin level -ID consulted. -Patient's hemoglobin A1c is 8.2 -HIV; patient will follow with ID 12/08/2020 -CTA showed worsening of her groundglass opacities -COVID-19 test was negative -ID consulted and recommend to continue with antibiotics for now -Patient is on her HIV medications -Patient will oxygen saturation dropped to 85% on ambulation and patient require oxygen at discharge -I put a consult for pulmonary 12/09/2020 -Patient's proBNP is normal, pulmonary ordered echo. Patient states she has history of CHF and told me she was diagnosed in this hospital but I check her records and there is no echo report. -Home oxygen arranged. 12/10/2020 -Echo showed no CHF. Patient was seen by ID and started the patient on Bactrim for suspected PCP, and fluconazole for oral candidiasis. We going to follow Fungitell and induced sputum for PCP. Patient has hyperglycemia and added 15 units of Lantus, change Solu-Medrol to prednisone 40 mg daily. Disposition is per pulmonary and ID recommendation 12/11/2020; patient is on Bactrim and fluconazole per ID recommendation. Patient is on steroid per pulmonary recommendation. Induced sputum for PCP was ordered but there was no collected, in detail was ordered. Patient's blood sugar is uncontrolled and I increase Lantus from 15 to 25 units, change sliding scale from moderate to high dose. Continue to monitor and adjust as needed. Disposition is per pulmonary and ID recommendation. Pulmonary evaluated and recommendations as follows: Patient has been scheduled for bronchoscopy with TBBx, cytology brushings, BAL tomorrow at 1pm. Patient is NPO from midnight. Enoxaparin has been stopped. Start D51/2Nsaline at midnight. 12/12: Still with generalized body pain, Bronch today, Will monitor, Pain control. lethargic, awaiting 12/13: Continue supportive care, ID input noted, patient is post Bronchosocpy 12/12- Awaiting microdata and serologies. CONTINUE PAIN CONTROL 12/14: Patient noted with worsening respiratory distress and hypoxia, chest x-ray otherwise shows improvement in symptoms. I encouraged the patient to prone herself during hours of sleep. To use pillows across her chest with deep breaths and practice incentive spirometer. We will continue to monitor wean oxygen as tolerated. Continue awaiting cultures from recent bronchoscopy 12/15/20 patient is seen and examined. shortness of breath is same. But patient is coughing. Chest x-ray shows improvement in the appearance in irrigation throughout the both lung as compared to previous exam. Continue Bactrim IV every 8 hours, prednisone 40 mg p.o. daily. Follow-up BAL culture for fungi, AFB. Follow-up HIV RNA PCR, CD4 count. ID consult. Continue current management. Recheck CBC in the morning. Out of bed to chair and PT evaluation. History Interval history: She is seen and examined Lab and medication reviewed Patient is on high flow oxygen nasal cannula 70 L/min FiO2 70% Hospitalist Physical - Constitutional Vitals: Temp Pulse Resp BP Pulse Ox 98.5 F 83 18 138/79 87 12/15/20 05:58 12/15/20 05:58 12/15/20 05:58 12/15/20 05:58 12/15/20 09:09 General appearance: Present: mild distress, well-nourished - Respiratory Respiratory: left: diminished HEART Score - HEART Score Troponin: Troponin T < 0.010 ng/mL (0.00-0.029) 12/06/20 14:04 Results - Labs CBC & Chem 7: 12/14/20 07:15 12/14/20 07:15 Labs: Laboratory Last Values WBC 11.5 K/mm3 (4.5-11.0) H 12/14/20 07:15 RBC 3.54 M/mm3 (3.65-5.03) L 12/14/20 07:15 Hgb 8.5 gm/dl (10.1-14.3) L 12/14/20 07:15 Hct 26.5 % (30.3-42.9) L 12/14/20 07:15 MCV 75 fl (79-97) L 12/14/20 07:15 MCH 24 pg (28-32) L 12/14/20 07:15 MCHC 32 % (30-34) 12/14/20 07:15 RDW 14.3 % (13.2-15.2) 12/14/20 07:15 Plt Count 513 K/mm3 (140-440) H 12/14/20 07:15 Lymph % (Auto) 16.1 % (13.4-35.0) 12/13/20 11:09 [place] % (Auto) 7.0 % (0.0-7.3) 12/13/20 11:09 Eos % (Auto) 1.8 % (0.0-4.3) 12/13/20 11:09 Baso % (Auto) 0.3 % (0.0-1.8) 12/13/20 11:09 Lymph # (Auto) 2.1 K/mm3 (1.2-5.4) 12/13/20 11:09 [place] # (Auto) 0.9 K/mm3 (0.0-0.8) H 12/13/20 11:09 Eos # (Auto) 0.2 K/mm3 (0.0-0.4) 12/13/20 11:09 Baso # (Auto) 0.0 K/mm3 (0.0-0.1) 12/13/20 11:09 Seg Neutrophils % 74.8 % (40.0-70.0) H 12/13/20 11:09 Seg Neutrophils # 9.9 K/mm3 (1.8-7.7) H 12/13/20 11:09 D-Dimer 185.58 ng/mlDDU (0-234) 12/06/20 15:24 ABG pH 7.441 (7.320-7.450) 12/13/20 15:33 POC ABG pCO2 33.7 mmHg (32.0-48.0) 12/13/20 15:33 POC ABG pO2 70.0 mmHg (83-108) L 12/13/20 15:33 POC ABG HCO3 22.4 12/13/20 15:33 ABG O2 Saturation 94.9 (0-100) 12/13/20 15:33 POC ABG Base Excess -1.2 12/13/20 15:33 ABG Hemoglobin 10.4 (12.0-17.5) L 12/13/20 15:33 ABG Oxyhemoglobin 93.9 (94-98) L 12/13/20 15:33 ABG Methemoglobin 0.3 (0.0-1.5) 12/13/20 15:33 ABG Sodium 131.5 mmol/L (136.0-145.0) L 12/13/20 15:33 ABG Potassium 4.0 mmol/L (3.40-4.50) 12/13/20 15:33 ABG Chloride 100.0 mmol/L (98-107) 12/13/20 15:33 ABG Glucose 239 mg/dL (65-95) H 12/13/20 15:33 Carboxyhemoglobin 0.8 (0.5-1.5) 12/13/20 15:33 FiO2 % 40.0 12/13/20 15:33 Sodium 134 mmol/L (137-145) L 12/14/20 07:15 Potassium 4.5 mmol/L (3.6-5.0) 12/14/20 07:15 Chloride 99.1 mmol/L (98-107) 12/14/20 07:15 Carbon Dioxide 25 mmol/L (22-30) 12/14/20 07:15 Anion Gap 14 mmol/L 12/14/20 07:15 BUN 12 mg/dL (7-17) 12/14/20 07:15 Creatinine 0.7 mg/dL (0.6-1.2) 12/14/20 07:15 Estimated GFR > 60 ml/min 12/14/20 07:15 BUN/Creatinine Ratio 17 % 12/14/20 07:15 Glucose 154 mg/dL (65-100) H 12/14/20 07:15 POC Glucose 249 mg/dL (70-105) H 12/15/20 07:33 Hemoglobin A1c 8.2 % (4-6) H 12/07/20 02:12 Lactic Acid 1.10 mmol/L (0.7-2.0) 12/06/20 23:55 Calcium 8.9 mg/dL (8.4-10.2) 12/14/20 07:15 Iron 22 ug/dL (37-170) L 12/07/20 07:28 TIBC 341 mcg/dL (250-450) 12/07/20 07:28 % Saturation 6.45 % 12/07/20 07:28 Transferrin 292 mg/dl (192-382) 12/07/20 07:28 Ferritin 40.7 ng/mL (10.0-200.0) 12/06/20 15:24 Total Bilirubin 0.40 mg/dL (0.1-1.2) 12/07/20 02:12 AST 26 units/L (5-40) 12/07/20 02:12 ALT 9 units/L (7-56) 12/07/20 02:12 Alkaline Phosphatase 94 units/L (35-129) 12/07/20 02:12 Lactate Dehydrogenase 273 units/L (91-180) H 12/09/20 13:32 Troponin T < 0.010 ng/mL (0.00-0.029) 12/06/20 14:04 C-Reactive Protein 7.10 mg/dL (0.00-1.30) H 12/06/20 15:24 NT-Pro-B Natriuret Pep 150.7 pg/mL (0-450) 12/09/20 00:43 Total Protein 8.3 g/dL (6.3-8.2) H 12/07/20 02:12 Albumin 3.2 g/dL (3.9-5) L 12/07/20 02:12 Albumin/Globulin Ratio 0.6 % 12/07/20 02:12 Vitamin B12 304.1 pg/mL (211-911) 12/07/20 07:28 RBC Folic Acid 711 ng/mL (>280) 12/07/20 07:28 Procalcitonin < 0.05 ng/mL (<0.15) 12/06/20 15:24 HCG, Qual Negative (Negative) 12/06/20 14:04 Arterial Blood Glucose 239 mg/dL (65-95) H 12/13/20 15:33 Arterial Blood Ionized Calcium 4.7 mg/dL (4.6-5.3) 12/13/20 15:33 Urine Color Yellow (Yellow) 12/07/20 Unknown Urine Turbidity Clear (Clear) 12/07/20 Unknown Urine pH 7.0 (5.0-7.0) 12/07/20 Unknown Ur Specific [place] 1.017 (1.003-1.030) 12/07/20 Unknown Urine Protein <15 mg/dl mg/dL (Negative) 12/07/20 Unknown Urine Glucose (UA) 150 mg/dL (Negative) 12/07/20 Unknown Urine Ketones Neg mg/dL (Negative) 12/07/20 Unknown Urine Blood Neg (Negative) 12/07/20 Unknown Urine Nitrite Neg (Negative) 12/07/20 Unknown Urine Bilirubin Neg (Negative) 12/07/20 Unknown Urine Urobilinogen 2.0 mg/dL (<2.0) 12/07/20 Unknown Ur Leukocyte Esterase Neg (Negative) 12/07/20 Unknown Urine WBC (Auto) < 1.0 /HPF (0.0-6.0) 12/07/20 Unknown Urine RBC (Auto) 1.0 /HPF (0.0-6.0) 12/07/20 Unknown U Epithel Cells (Auto) 6.0 /HPF (0-13.0) 12/07/20 Unknown DELFINO Screen Negative (Negative) 12/09/20 00:43 Coronavirus (PCR) Negative (Negative) 12/06/20 08:46 AFB Identification 12/13/20 Unknown AFB Identification 12/13/20 Unknown Fungal Id Prelim 12/13/20 Unknown Microbiology: Microbiology 12/13/20 08:19 Peripheral/Venous Blood Culture - Preliminary NO GROWTH AFTER 48 HOURS 12/13/20 Unknown Bronchial Washings - Right Lower Lobe Respiratory Culture - Preliminary 12/13/20 Unknown Bronchial Washings - Left Lower Lobe Respiratory Culture - Preliminary 12/13/20 11:09 Peripheral/Venous Blood Culture - Preliminary NO GROWTH AFTER 24 HOURS Santiago/IV: Voiding Method Toilet Active Medications - Current Medications Current Medications: Generic Name Dose Route Start Last Admin Trade Name Freq PRN Reason Stop Dose Admin Acetaminophen 650 mg 12/06/20 21:36 Acetaminophen 325 Mg Tab PO Q4H PRN Pain MILD(1-3)/Fever >100.5/RODRIGUES Acetaminophen 650 mg 12/13/20 04:50 Acetaminophen 650 Mg Rect Supp TN Q4H PRN Pain, Mild (1-3) Albuterol/Ipratropium 1 ampul 12/07/20 08:00 12/15/20 08:35 Ipratropium/Albuterol Sulfate 3 Ml Ampul.Neb IH 1 ampul TIDRT DARYA Administration Ascorbic Acid 1,000 mg 12/06/20 22:00 12/15/20 10:15 Ascorbic Acid 500 Mg Tab PO 1,000 mg BID DARYA Administration Cholecalciferol 5,000 unit 12/06/20 22:00 12/15/20 10:17 Cholecalciferol (Vit D3) 5,000 Unit Tab PO 5,000 unit DAILY DARYA Administration Darunavir 800 mg 12/07/20 16:00 12/15/20 10:16 Darunavir 800 Mg Tab PO 800 mg QDAY DARYA Administration Emtricitabine 200 mg 12/07/20 16:00 12/15/20 10:16 Emtricitabine 200 Mg Cap PO 200 mg QDAY DARYA Administration Famotidine 20 mg 12/06/20 22:00 12/15/20 10:16 Famotidine 20 Mg Tab PO 20 mg BID DARYA Administration Fluconazole 200 mg 12/09/20 13:00 12/15/20 10:16 Fluconazole 200 Mg Tab PO 200 mg QDAY DARYA Administration Protocol Guaifenesin 200 mg 12/06/20 23:59 12/15/20 06:06 Guaifenesin 100 Mg/5 Ml Oral Liqd PO 200 mg Q8H PRN Administration Cough Sodium Chloride 1,000 mls @ 100 mls/hr 12/13/20 05:00 12/15/20 06:07 Nacl 0.9% 1000 Ml IV 100 mls/hr DIRECT DARYA Administration Trimethoprim/Sulfamethoxazole 528.125 mls @ 350 mls/hr 12/14/20 10:00 12/15/20 10:19 450 mg/ Dextrose IV 350 mls/hr Q8H DARYA Administration Protocol Insulin Glargine 25 units 12/12/20 08:00 12/15/20 08:47 Insulin Glargine 100 Units/Ml SUB-Q 25 units QAMDIAB DARYA Administration Insulin Human Lispro 0 unit 12/09/20 22:00 12/15/20 08:48 Insulin Lispro 100 Unit/Ml SUB-Q 4 unit ACHS DARYA Administration Protocol Metformin HCl 500 mg 12/06/20 21:30 12/15/20 08:48 Metformin Xr 500mg Tab PO 500 mg QAMDIAB DARYA Administration Metoclopramide HCl 10 mg 12/06/20 21:36 12/13/20 22:35 Metoclopramide 10 Mg/2 Ml Inj IV 10 mg Q6H PRN Administration Nausea And Vomiting Morphine Sulfate 2 mg 12/12/20 14:28 12/15/20 00:28 Morphine 2 Mg/1 Ml Inj IV 2 mg Q4H PRN Administration Pain, Moderate (4-6) Ondansetron HCl 4 mg 12/06/20 21:36 12/14/20 18:34 Ondansetron 4 Mg/2 Ml Inj IV 4 mg Q8H PRN Administration Nausea And Vomiting Oxycodone/Acetaminophen 2 tab 12/07/20 18:00 12/14/20 21:44 Oxycodone /Acetaminophen 5-325mg Tab PO 2 tab Q6H PRN Administration Pain, Moderate (4-6) Polyethylene Glycol 17 gm 12/11/20 18:05 12/11/20 18:24 Polyethylene Glycol 3350 17 Gm Powder PO 17 gm QDAY PRN Administration Constipation Prednisone 40 mg 12/16/20 10:00 Prednisone 20 Mg Tab PO 12/20/20 10:01 QDAY DARYA Prednisone 20 mg 12/21/20 10:00 Prednisone 10 Mg Tab PO 12/31/20 10:01 QDAY DARYA Ritonavir 100 mg 12/07/20 16:00 12/15/20 10:16 Ritonavir 100 Mg Tab PO 100 mg QDAY DARYA Administration Sodium Chloride 10 ml 12/06/20 22:00 12/15/20 10:17 Sodium Chloride 0.9% 10 Ml Flush Syringe IV 10 ml BID DARYA Administration Sodium Chloride 10 ml 12/06/20 21:36 Sodium Chloride 0.9% 10 Ml Flush Syringe IV PRN PRN LINE FLUSH Tenofovir Disoproxil Fumarate 300 mg 12/07/20 16:00 12/15/20 10:17 Tenofovir 300 Mg Tab PO 300 mg QDAY DARYA Administration Tramadol HCl 50 mg 12/06/20 21:21 Tramadol 50 Mg Tab PO Q8H PRN PAIN (4-6) Zinc Sulfate 220 mg 12/06/20 22:00 12/15/20 10:17 Zinc Sulfate 220 Mg Cap PO 220 mg BID DARYA Administration Zolpidem Tartrate 5 mg 12/07/20 22:00 12/14/20 21:45 Zolpidem 5 Mg Tab PO 5 mg QHS PRN Administration Sleep Nutrition/Malnutrition Assess - Dietary Evaluation Nutrition/Malnutrition Findings: Nutrition Notes Start: 12/07/20 15:58 Freq: Status: Active Protocol: Document 12/13/20 14:26 AMOL (Rec: 12/13/20 14:32 AMOL [email or web address]) Nutrition Notes Need for Assessment generated from: LOS Initial or Follow up Brief Note Current Diagnosis Diabetes,Sepsis,Heart Failure, Respiratory Failure Other Pertinent Diagnosis pneu Current Diet Consistent CHO, vegetarian Labs/Tests POC 255 Pertinent Medications Prednisone NS at 100 ml/hr Height 5 ft 7 in Weight 88.2 kg Usual Body Weight 87.7 kg [place] Body Weight (kg) 61.36 BMI 30.4 Weight Status Obese Subjective/Other Information Screen for LOS. Pt reports eating 50 of meals depending on what it is and her pain level. Pt open to ONS BID to help meet protein needs. Burn Absent Trauma Absent Current % PO Fair (50-74%) Minimum of two criteria No #1 Nutrition Diagnosis Inadequate oral intake Etiology pain and food prefrences As Evidenced by Signs and Symptoms pt eating 50% of meals Is patient on ventilator? No Is Patient Ambulatory and/or Out of Bed No REE-([facility]-confined to bed) 1939.752 Kcal/Kg value to use for calculation 19 Approximate Energy Requirements Using 1676 kcal/Kg Additional Notes Protein: (0.8-1g/kg AdjBW: 75kg) 60-75g Fluid: 1ml/kcal or per MD Nutrition Intervention Change Diet Order: Continue Add Supplement/Snack (indicate name/kcal Glucerna BID /protein ) Provides kCal: 440 Provides Protein (gm) 20 Goal #1 Meet at least 75% of protein and energy needs Follow-Up By: 12/15/20 Additional Comments FU for intakes and ONS tolerance - Malnutrition Assessment Minimum of two criteria: No physical signs of malnutrition - Attestation Statement I have reviewed and agreed w/ Malnutrition eval & tx plan: No
--- NOTE | 2020-12-15 13:24 | Progress Note ---
Assessment and Plan Cultures: Blood culture 12/06/2020 no growth 12/06/2020 urine culture: Usual skin korin 12/09/2020 1,3 [id number]: >500, strongly positive. 12/13/2020 blood culture: no growth 12/13/2020 BAL washings culture: Usual respiratory korin A/P: 35 yo F PMHx HIV, Dm2, CHF admitted with SOB, myalgias. #Bilateral PNA: CT shows bilateral groundglass opacities. Admitted with SOB and myalgias. Was seen here 3 weeks previously and tested negative for COVID then, treated empiric with abx. No improvement in symptoms, readmitted. CT without PE, but with worsening GGO bilaterally. Normal procalcitonin. Other viral etiology? Doubt opportunistic infection given historical excellent control of HIV. However patient noted with oral candidiasis no recent CD4 viral load. Noted m ild hypoxia. She does not have any pets, and [place] in the city. No recent travel, no sick contacts. No travel to the [place]. LDH elevated. Status post bronchoscopy 12/12/2020, no gross endobronchial lesions were seen. Right lower lobe lung biopsy showed findings consistent with pneumocystis. BAL cytology also showed pneumocystis. As per discussion with patient, she reports good compliance with her HIV medications. She used to be undetectable. She also admits to vaping twice daily since August 2020. Vaping induced lung injury is another possibility. #Acute hypoxic respiratory failure: secondary to above. #HIV: supposedly well controlled with Truvada, norvir, and darunavir. Has outpatient ID doc. Given evidence of thrush and PJP pneumonia, I doubt she has good control of HIV. #Oral candidiasis Recs: -continue IV Bactrim with adjunctive steroids -Continue fluconazole -Continue home ART: Truvada, Norvir, darunavir for now. -f/u HIV RNA PCR, CD4 count, HIV genotype ordered Ashly Lindsay MD, FACP [facility] ([facility]) O: [phone] F: [phone] Subjective Date of service: 12/15/20 Principal diagnosis: Sepsis; Ac hypoxemic resp failure; PJP Pneumonia; CHF; PUI COVID-19; HIV+ve Interval history: Low grade fever. Shortness of breath +. Remains on HFNC. Objective - Exam Narrative Exam: Physical Exam: Constitutional: Alert, cooperative. No acute distress Head, Ears, Nose: Normocephalic, atraumatic. External ears, nose normal Eyes: Conjunctivae/corneas clear. No icterus. No ptosis. Neck: Supple, no meningeal signs Oral: Thrush + Cardiovascular: S1, S2 normal. Respiratory: Bilateral crackles GI: Soft, non-tender; bowel sounds normal. No peritoneal signs Musculoskeletal: No pedal edema, no cyanosis. Skin: No rash or abscess Hem/Lymphatic: No palpable cervical or supraclavicular nodes. No lymphangitis Psych: Mood ok. Affect normal Neurological: Awake, alert, oriented. No gross abnormality - Constitutional Vitals: Vital Signs Temp Pulse Resp BP Pulse Ox 98.5 F 102 H 19 138/79 87 12/15/20 05:58 12/15/20 08:35 12/15/20 09:00 12/15/20 05:58 12/15/20 09:09 Temperature -Last 24 Hours Temperature 98.5 F Temperature 98.0 F Temperature 98.5 F - Labs CBC & Chem 7: 12/14/20 07:15 12/14/20 07:15 Labs: Abnormal lab results 12/14/20 12/14/20 12/15/20 Range/Units 17:16 21:07 07:33 POC Glucose 314 H 402 H 249 H (70-105) mg/dL 12/15/20 Range/Units 11:13 POC Glucose 344 H (70-105) mg/dL
--- NOTE | 2020-12-15 19:19 | Progress Note ---
Assessment and Plan Severe Sepsis Acute hypoxic respiratory failure Bilateral pneumonia (PJP Pneumonia) CHF PUI COVID-19 HIV DM II Anemia - watch closely with short leash to transfer to ICU - therapy for severe PJP pneumonia started (on IV bactrim) - follow other bronch results including special stains (5-7 days) - continue to wean supplemental oxygen to keep O2 sats > 90% - prn NIV for increased work of breathing (will hold on scheduling re: risk of pneumothoraces with PJP pneumonia) - prn bronchodilators (HILDA) with pulm hygiene per RT - continue systemic steroids - continue to avoid nephrotoxins, renally dose all medications - continue accuchecks with glycemic control per SSI (While critically ill target blood glucose of 140-180 mg/dL; avoid hypoglycemia) - aspiration precautions - complete AB's per ID rec's - Maintenance of sleep-wake cycle, avoid delirium - mobility protocols to prevent pressure ulcers - PT/OT as tolerated - Wound care per RN/WCT - continue accuchecks with glycemic control per SSI for target blood glucose < 180 mg/dL - tobacco abstinence strongly counseled at the bedside - home oxygen evaluation at discharge - prn analgesia per pain score - GI & VTE prophylaxis - Flu & pneumovax per protocol - Pulmonary out patient follow up for PFTs and optimization of respiratory status - continue other care per attending / other consultants - discharge planning ongoing concurrently .... Re-evaluate in am & prn CONDITION: CRITICAL PROGNOSIS: GUARDED CODE STATUS: FULL CODE The high probability of a clinically significant, sudden or life-threatening deterioration of the [respiratory, cardiovascular & neurologic] system(s) required my full and direct attention, intervention and personal management. The aggregate critical care time was [34] minutes without overlap. Time includes spent on; [x] Data Review and interpretation [x] Patient assessment and monitoring of vital signs [x] Documentation [x] Medication orders and management Subjective Date of service: 12/15/20 Principal diagnosis: Sepsis; Ac hypoxemic resp failure; PJP Pneumonia; CHF; PUI COVID-19; HIV+ve Interval history: Patient is seen today for: Sepsis; Acute hypoxemic respiratory failure; Bilateral pneumonia (PJP Pneumonia); CHF; PUI COVID-19; HIV +ve; DM II Seen and examined at bedside; 24hour events reviewed; nursing and respiratory care staff consulted; no adverse overnight events reported to me; resting peacefully in bed; FiO2 increased to 70% due to desaturation's with frequent bathroom visits; denies chest pain and no hemoptysis Objective Vital Signs - 12hr 12/15/20 12/15/20 12/15/20 08:25 08:35 09:00 Pulse Rate [ 102 H Bilateral] Respiratory 19 Rate Respiratory 18 Rate [Bilateral ] O2 Sat by Pulse 96 Oximetry 12/15/20 12/15/20 12/15/20 09:09 14:15 14:20 Pulse Rate [ 104 H Bilateral] Respiratory Rate Respiratory 20 Rate [Bilateral ] O2 Sat by Pulse 87 93 Oximetry Constitutional: alert, appears uncomfortable, other (young female with mildly increased respiratory effort at rest ) Eyes: non-icteric ENT: oropharynx moist, other (oral candidiasis) Neck: supple, no lymphadenopathy, no JVD Effort: mildly labored Ascultation: Bilateral: diminished breath sounds, rales (faint in bases) Percussion: Bilateral: not dull Cardiovascular: regular rate and rhythm, other (S1,S2) Gastrointestinal: normoactive bowel sounds, soft, non-tender, non-distended Integumentary: normal Extremities: no cyanosis, no edema, pulses normal, no ischemia or petechiae Neurologic: normal mental status, non-focal exam, pupils equal and round, CN II- XII normal, motor strength normal and (but wekness) Psychiatric: mood appropriate, affect normal CBC and BMP: 12/16/20 07:06 12/16/20 07:06 ABG, PT/INR, D-dimer: ABG ABG pH 7.441 (7.320-7.450) 12/13/20 15:33 POC ABG pCO2 33.7 mmHg (32.0-48.0) 12/13/20 15:33 POC ABG pO2 70.0 mmHg (83-108) L 12/13/20 15:33 POC ABG HCO3 22.4 12/13/20 15:33 ABG O2 Saturation 94.9 (0-100) 12/13/20 15:33 PT/INR, D-dimer D-Dimer 185.58 ng/mlDDU (0-234) 12/06/20 15:24 Abnormal lab findings: Abnormal Labs 12/06/20 12/06/20 12/06/20 14:04 14:04 15:24 WBC RBC 3.57 L Hgb 8.8 L Hct 27.3 L MCV 76 L MCH 25 L Plt Count Bell % (Auto) 8.5 H Bell # (Auto) Seg Neutrophils % Seg Neutrophils # POC ABG pO2 ABG Hemoglobin ABG Oxyhemoglobin ABG Sodium ABG Glucose Carboxyhemoglobin Sodium 136 L Glucose 149 H POC Glucose Hemoglobin A1c Calcium Iron Lactate Dehydrogenase 418 H C-Reactive Protein 7.10 H Total Protein 8.6 H Albumin 2.9 L Arterial Blood Glucose 12/07/20 12/07/20 12/07/20 02:12 02:12 02:12 WBC RBC 3.61 L Hgb 9.2 L Hct 27.8 L MCV 77 L MCH 26 L Plt Count Bell % (Auto) 9.4 H Bell # (Auto) Seg Neutrophils % Seg Neutrophils # POC ABG pO2 ABG Hemoglobin ABG Oxyhemoglobin ABG Sodium ABG Glucose Carboxyhemoglobin Sodium Glucose 123 H POC Glucose Hemoglobin A1c 8.2 H Calcium 8.3 L Iron Lactate Dehydrogenase C-Reactive Protein Total Protein 8.3 H Albumin 3.2 L Arterial Blood Glucose 12/07/20 12/07/20 12/07/20 07:28 07:48 11:48 WBC RBC Hgb Hct MCV MCH Plt Count Bell % (Auto) Bell # (Auto) Seg Neutrophils % Seg Neutrophils # POC ABG pO2 ABG Hemoglobin ABG Oxyhemoglobin ABG Sodium ABG Glucose Carboxyhemoglobin Sodium Glucose POC Glucose 290 H 217 H Hemoglobin A1c Calcium Iron 22 L Lactate Dehydrogenase C-Reactive Protein Total Protein Albumin Arterial Blood Glucose 12/07/20 12/07/20 12/08/20 16:46 22:36 08:50 WBC RBC Hgb Hct MCV MCH Plt Count Bell % (Auto) Bell # (Auto) Seg Neutrophils % Seg Neutrophils # POC ABG pO2 ABG Hemoglobin ABG Oxyhemoglobin ABG Sodium ABG Glucose Carboxyhemoglobin Sodium Glucose POC Glucose 203 H 189 H 293 H Hemoglobin A1c Calcium Iron Lactate Dehydrogenase C-Reactive Protein Total Protein Albumin Arterial Blood Glucose 12/08/20 12/08/20 12/08/20 11:35 16:18 16:39 WBC RBC Hgb Hct MCV MCH Plt Count Bell % (Auto) Bell # (Auto) Seg Neutrophils % Seg Neutrophils # POC ABG pO2 ABG Hemoglobin 9.4 L ABG Oxyhemoglobin ABG Sodium 132.7 L ABG Glucose 303 H Carboxyhemoglobin 0.4 L Sodium Glucose POC Glucose 360 H 288 H Hemoglobin A1c Calcium Iron Lactate Dehydrogenase C-Reactive Protein Total Protein Albumin Arterial Blood Glucose 303 H 12/08/20 12/09/20 12/09/20 21:08 13:32 21:43 WBC RBC Hgb Hct MCV MCH Plt Count Bell % (Auto) Bell # (Auto) Seg Neutrophils % Seg Neutrophils # POC ABG pO2 ABG Hemoglobin ABG Oxyhemoglobin ABG Sodium ABG Glucose Carboxyhemoglobin Sodium Glucose POC Glucose 300 H 394 H Hemoglobin A1c Calcium Iron Lactate Dehydrogenase 273 H C-Reactive Protein Total Protein Albumin Arterial Blood Glucose 12/10/20 12/10/20 12/10/20 07:37 11:04 15:37 WBC RBC Hgb Hct MCV MCH Plt Count Bell % (Auto) Bell # (Auto) Seg Neutrophils % Seg Neutrophils # POC ABG pO2 ABG Hemoglobin ABG Oxyhemoglobin ABG Sodium ABG Glucose Carboxyhemoglobin Sodium Glucose POC Glucose 431 H 386 H 339 H Hemoglobin A1c Calcium Iron Lactate Dehydrogenase C-Reactive Protein Total Protein Albumin Arterial Blood Glucose 12/10/20 12/11/20 12/11/20 21:09 07:24 10:56 WBC RBC Hgb Hct MCV MCH Plt Count Bell % (Auto) Bell # (Auto) Seg Neutrophils % Seg Neutrophils # POC ABG pO2 ABG Hemoglobin ABG Oxyhemoglobin ABG Sodium ABG Glucose Carboxyhemoglobin Sodium Glucose POC Glucose 412 H 399 H 431 H Hemoglobin A1c Calcium Iron Lactate Dehydrogenase C-Reactive Protein Total Protein Albumin Arterial Blood Glucose 12/11/20 12/11/20 12/12/20 16:26 22:31 00:53 WBC RBC Hgb Hct MCV MCH Plt Count Bell % (Auto) Bell # (Auto) Seg Neutrophils % Seg Neutrophils # POC ABG pO2 ABG Hemoglobin ABG Oxyhemoglobin ABG Sodium ABG Glucose Carboxyhemoglobin Sodium Glucose POC Glucose 320 H 361 H 255 H Hemoglobin A1c Calcium Iron Lactate Dehydrogenase C-Reactive Protein Total Protein Albumin Arterial Blood Glucose 12/12/20 12/12/20 12/12/20 07:16 10:47 16:40 WBC RBC Hgb Hct MCV MCH Plt Count Bell % (Auto) Bell # (Auto) Seg Neutrophils % Seg Neutrophils # POC ABG pO2 ABG Hemoglobin ABG Oxyhemoglobin ABG Sodium ABG Glucose Carboxyhemoglobin Sodium Glucose POC Glucose 171 H 156 H 146 H Hemoglobin A1c Calcium Iron Lactate Dehydrogenase C-Reactive Protein Total Protein Albumin Arterial Blood Glucose 12/12/20 12/13/20 12/13/20 22:04 07:29 11:09 WBC 13.3 H RBC Hgb 9.3 L Hct 29.6 L MCV 76 L MCH 24 L Plt Count 653 H Bell % (Auto) Bell # (Auto) 0.9 H Seg Neutrophils % 74.8 H Seg Neutrophils # 9.9 H POC ABG pO2 ABG Hemoglobin ABG Oxyhemoglobin ABG Sodium ABG Glucose Carboxyhemoglobin Sodium Glucose POC Glucose 214 H 211 H Hemoglobin A1c Calcium Iron Lactate Dehydrogenase C-Reactive Protein Total Protein Albumin Arterial Blood Glucose 12/13/20 12/13/20 12/13/20 11:23 15:33 16:00 WBC RBC Hgb Hct MCV MCH Plt Count Bell % (Auto) Bell # (Auto) Seg Neutrophils % Seg Neutrophils # POC ABG pO2 70.0 L ABG Hemoglobin 10.4 L ABG Oxyhemoglobin 93.9 L ABG Sodium 131.5 L ABG Glucose 239 H Carboxyhemoglobin Sodium Glucose POC Glucose 255 H 225 H Hemoglobin A1c Calcium Iron Lactate Dehydrogenase C-Reactive Protein Total Protein Albumin Arterial Blood Glucose 239 H 12/13/20 12/14/20 12/14/20 20:59 07:15 07:15 WBC 11.5 H RBC 3.54 L Hgb 8.5 L Hct 26.5 L MCV 75 L MCH 24 L Plt Count 513 H Bell % (Auto) Bell # (Auto) Seg Neutrophils % Seg Neutrophils # POC ABG pO2 ABG Hemoglobin ABG Oxyhemoglobin ABG Sodium ABG Glucose Carboxyhemoglobin Sodium 134 L Glucose 154 H POC Glucose 267 H Hemoglobin A1c Calcium Iron Lactate Dehydrogenase C-Reactive Protein Total Protein Albumin Arterial Blood Glucose 12/14/20 12/14/20 12/14/20 07:41 11:58 17:16 WBC RBC Hgb Hct MCV MCH Plt Count Bell % (Auto) Bell # (Auto) Seg Neutrophils % Seg Neutrophils # POC ABG pO2 ABG Hemoglobin ABG Oxyhemoglobin ABG Sodium ABG Glucose Carboxyhemoglobin Sodium Glucose POC Glucose 162 H 260 H 314 H Hemoglobin A1c Calcium Iron Lactate Dehydrogenase C-Reactive Protein Total Protein Albumin Arterial Blood Glucose 12/14/20 12/15/20 12/15/20 21:07 07:33 11:13 WBC RBC Hgb Hct MCV MCH Plt Count Bell % (Auto) Bell # (Auto) Seg Neutrophils % Seg Neutrophils # POC ABG pO2 ABG Hemoglobin ABG Oxyhemoglobin ABG Sodium ABG Glucose Carboxyhemoglobin Sodium Glucose POC Glucose 402 H 249 H 344 H Hemoglobin A1c Calcium Iron Lactate Dehydrogenase C-Reactive Protein Total Protein Albumin Arterial Blood Glucose 12/15/20 17:09 WBC RBC Hgb Hct MCV MCH Plt Count Bell % (Auto) Bell # (Auto) Seg Neutrophils % Seg Neutrophils # POC ABG pO2 ABG Hemoglobin ABG Oxyhemoglobin ABG Sodium ABG Glucose Carboxyhemoglobin Sodium Glucose POC Glucose 251 H Hemoglobin A1c Calcium Iron Lactate Dehydrogenase C-Reactive Protein Total Protein Albumin Arterial Blood Glucose Allied health notes reviewed: nursing
[2020-12-15 20:21] LABS: HIV-1 RNA QN PCR 5.17 Log cps/mL
[2020-12-15] MEDS: oxyCODONE /ACETAMINOPHEN 5-325MG TAB PO PRN (22:58)
[2020-12-15] MEDS: ONDANSETRON 4 MG/2 ML INJ IV PRN (23:11)
[2020-12-16] MEDS: TMP IV SCH ×3 (02:28→17:11)
[2020-12-16] MEDS: SMX IV SCH ×3 (02:28→17:11)
[2020-12-16] MEDS: DEXTROSE 5% IV SCH ×3 (02:28→17:11)
[2020-12-16] MEDS: WATER IV SCH ×3 (02:28→17:11)
[2020-12-16] MEDS: ZOLPIDEM 5 MG TAB PO PRN ×2 (03:38→21:51)
[2020-12-16 07:31] LABS: Basophils % (Auto) 0.1 % (0.0-1.8); Eosinophils # (Auto) 0.1 K/mm3 (0.0-0.4); Eosinophils % (Auto) 0.5 % (0.0-4.3); Hematocrit 26.3 % (30.3-42.9); Hemoglobin 8.5 gm/dl (10.1-14.3); Lymphocytes # (Auto) 1.5 K/mm3 (1.2-5.4); Lymphocytes % (Auto) 10.3 % (13.4-35.0); Mean Corpuscular HGB Conc 32 % (30-34); Mean Corpuscular Volume 75 fl (79-97); Monocytes # (Auto) 1.1 K/mm3 (0.0-0.8); Monocytes % (Auto) 7.3 % (0.0-7.3); Platelet Count 540 K/mm3 (140-440); Red Cell Distribution Width 14.4 % (13.2-15.2)
[2020-12-16 07:50] LABS: BUN/Creatinine Ratio 14; Blood Urea Nitrogen 11 mg/dL (7-17); Calcium 9.1 mg/dL (8.4-10.2); Hemolysis Index 1
[2020-12-16] MEDS: INSULIN LISPRO 100 UNIT/ML SUB-Q SCH ×4 (07:54→22:41)
[2020-12-16] MEDS: MORPHINE 2 MG/1 ML INJ IV PRN ×3 (07:56→21:14)
[2020-12-16] MEDS: INSULIN GLARGINE 100 UNITS/ML SUB-Q SCH (08:16)
[2020-12-16] MEDS: metFORMIN XR 500MG TAB PO SCH (08:16)
[2020-12-16] MEDS: IPRATROPIUM/ALBUTEROL SULFATE 3 ML AMPUL.NEB IH SCH ×3 (08:43→21:02)
[2020-12-16] MEDS: EMTRICITABINE 200 MG CAP PO SCH (10:45)
[2020-12-16] MEDS: FLUCONAZOLE 200 MG TAB PO SCH (10:45)
[2020-12-16] MEDS: predniSONE 20 MG TAB PO SCH (10:45)
[2020-12-16] MEDS: RITONAVIR 100 MG TAB PO SCH (10:45)
[2020-12-16] MEDS: FAMOTIDINE 20 MG TAB PO SCH ×2 (10:45→21:13)
[2020-12-16] MEDS: DARUNAVIR 800 MG TAB PO SCH (10:45)
[2020-12-16] MEDS: TENOFOVIR 300 MG TAB PO SCH (10:46)
[2020-12-16] MEDS: CHOLECALCIFEROL (VIT D3) 5,000 UNIT TAB PO SCH (10:46)
[2020-12-16] MEDS: ASCORBIC ACID 500 MG TAB PO SCH ×2 (10:46→22:33)
[2020-12-16] MEDS: ZINC SULFATE 220 MG CAP PO SCH (10:47)
--- NOTE | 2020-12-16 11:42 | Progress Note ---
Assessment and Plan Assessment and plan: 35-year-old female with history of HIV, type 2 diabetes and CHF comes in for 1 week of body aches cough and shortness of breath and low-grade fever. Cough is productive of mucoid sputum. Body aches are the most distressing symptom that she had. Patient is a poor historian.. Patient denies getting vaccination for coronavirus. Generalized abdominal pain. Shortness of breath present. Generalized malaise present. (1) Sepsis with acute hypoxic respiratory failure Current Visit: Yes Status: Acute Qualifiers: Severe sepsis shock status: unspecified Plan to address problem: Supplemental oxygen and keep the oxygen saturations above 92 Possible Covid pneumonia Treat for bilateral pneumonia and Covid pneumonia (2) Bilateral pneumonia Current Visit: Yes Status: Acute Plan to address problem: Treated as community-acquired pneumonia Coronavirus PCR requested IV Decadron initiated ID consult requested (3) CHF (congestive heart failure) Current Visit: No Status: Chronic Qualifiers: Heart failure type: combined systolic and diastolic Plan to address problem: Cardiogram for ejection fraction IV Lasix 40 mg every 24 (4) Person under investigation for COVID-19 Current Visit: Yes Status: Acute Plan to address problem: Coronavirus PCR requested IV Decadron initiated Zinc vitamin C and vitamin D initiated (5) HIV (human immunodeficiency virus infection) Current Visit: Yes Status: Chronic Qualifiers: HIV symptom status: asymptomatic, with no history of HIV-related illness Qualified Code(s): Z21 - Asymptomatic human immunodeficiency virus [HIV] infection status Plan to address problem: Patient on Zithromax (6) T2DM (type 2 diabetes mellitus) Current Visit: Yes Status: Chronic Qualifiers: 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 Plan to address problem: Check hemoglobin A1c Accu-Cheks AC at bedtime Coverage as per moderate dose sliding scale Continue Metformin (7) DVT prophylaxis Current Visit: Yes Status: Acute Plan to address problem: On Lovenox and GI prophylaxis (8) Anemia Current Visit: Yes Status: Chronic Qualifiers: Anemia type: iron deficiency Plan to address problem: Probable iron deficiency anemia: Check iron levels B12 and folic acid (9) DVT prophylaxis Current Visit: No Status: Acute Plan to address problem: Lovenox and GI prophylaxis 12/07/2020 -COVID-19 test is pending -Continue with IV antibiotics for now, follow procalcitonin level -ID consulted. -Patient's hemoglobin A1c is 8.2 -HIV; patient will follow with ID 12/08/2020 -CTA showed worsening of her groundglass opacities -COVID-19 test was negative -ID consulted and recommend to continue with antibiotics for now -Patient is on her HIV medications -Patient will oxygen saturation dropped to 85% on ambulation and patient require oxygen at discharge -I put a consult for pulmonary 12/09/2020 -Patient's proBNP is normal, pulmonary ordered echo. Patient states she has history of CHF and told me she was diagnosed in this hospital but I check her records and there is no echo report. -Home oxygen arranged. 12/10/2020 -Echo showed no CHF. Patient was seen by ID and started the patient on Bactrim for suspected PCP, and fluconazole for oral candidiasis. We going to follow Fungitell and induced sputum for PCP. Patient has hyperglycemia and added 15 units of Lantus, change Solu-Medrol to prednisone 40 mg daily. Disposition is per pulmonary and ID recommendation 12/11/2020; patient is on Bactrim and fluconazole per ID recommendation. Patient is on steroid per pulmonary recommendation. Induced sputum for PCP was ordered but there was no collected, in detail was ordered. Patient's blood sugar is uncontrolled and I increase Lantus from 15 to 25 units, change sliding scale from moderate to high dose. Continue to monitor and adjust as needed. Disposition is per pulmonary and ID recommendation. Pulmonary evaluated and recommendations as follows: Patient has been scheduled for bronchoscopy with TBBx, cytology brushings, BAL tomorrow at 1pm. Patient is NPO from midnight. Enoxaparin has been stopped. Start D51/2Nsaline at midnight. 12/12: Still with generalized body pain, Bronch today, Will monitor, Pain control. lethargic, awaiting 12/13: Continue supportive care, ID input noted, patient is post Bronchosocpy 12/12- Awaiting microdata and serologies. CONTINUE PAIN CONTROL 12/14: Patient noted with worsening respiratory distress and hypoxia, chest x-ray otherwise shows improvement in symptoms. I encouraged the patient to prone herself during hours of sleep. To use pillows across her chest with deep breaths and practice incentive spirometer. We will continue to monitor wean oxygen as tolerated. Continue awaiting cultures from recent bronchoscopy 12/15/20 patient is seen and examined. shortness of breath is same. But patient is coughing. Chest x-ray shows improvement in the appearance in irrigation throughout the both lung as compared to previous exam. Continue Bactrim IV every 8 hours, prednisone 40 mg p.o. daily. Follow-up BAL culture for fungi, AFB. Follow-up HIV RNA PCR, CD4 count. ID consult. Continue current management. Recheck CBC in the morning. Out of bed to chair and PT evaluation. 12/16/20 patient seen and examined. Lab and medication reviewed.Patient is on high flow oxygen nasal cannula 18 L/min FiO2 70%. Patient feels better compared to yesterday. Decreased shortness of breath. Mild coughing. Continue Bactrim IV every 8 hours, prednisone 40 mg p.o. daily. Follow-up BAL culture for fungi, AFB. Follow-up HIV RNA PCR, CD4 count. ID consult. Continue current management. Recheck CBC in the morning. Out of bed to chair and PT evaluation. History Interval history: She is seen and examined Lab and medication reviewed Patient is on high flow oxygen nasal cannula 18 L/min FiO2 70%. Patient feels better compared to yesterday. Decreased shortness of breath. Mild coughing Hospitalist Physical - Constitutional Vitals: Temp Pulse Resp BP Pulse Ox 97.9 F 112 H 18 104/54 96 12/16/20 05:07 12/16/20 08:35 12/16/20 08:35 12/16/20 05:07 12/16/20 08:40 General appearance: Present: mild distress, well-nourished - EENT Eyes: Present: PERRL, EOM intact ENT: hearing intact, clear oral mucosa, dentition normal - Neck Neck: Present: supple, normal ROM - Respiratory Respiratory effort: normal Respiratory: bilateral: diminished - Cardiovascular Rhythm: regular - Extremities Extremities: no ischemia, normal color Peripheral Pulses: within normal limits - Abdominal General gastrointestinal: soft, non-tender, normal bowel sounds - Integumentary Integumentary: Present: clear, warm, dry - Psychiatric Psychiatric: appropriate mood/affect, intact judgment & insight - Neurologic Neurologic: CNII-XII intact, moves all extremities HEART Score - HEART Score Troponin: Troponin T < 0.010 ng/mL (0.00-0.029) 12/06/20 14:04 Results - Labs CBC & Chem 7: 12/16/20 07:06 12/16/20 07:06 Labs: Laboratory Last Values WBC 14.7 K/mm3 (4.5-11.0) H 12/16/20 07:06 RBC 3.50 M/mm3 (3.65-5.03) L 12/16/20 07:06 Hgb 8.5 gm/dl (10.1-14.3) L 12/16/20 07:06 Hct 26.3 % (30.3-42.9) L 12/16/20 07:06 MCV 75 fl (79-97) L 12/16/20 07:06 MCH 24 pg (28-32) L 12/16/20 07:06 MCHC 32 % (30-34) 12/16/20 07:06 RDW 14.4 % (13.2-15.2) 12/16/20 07:06 Plt Count 540 K/mm3 (140-440) H 12/16/20 07:06 Lymph % (Auto) 10.3 % (13.4-35.0) L 12/16/20 07:06 Me[place] % (Auto) 7.3 % (0.0-7.3) 12/16/20 07:06 Eos % (Auto) 0.5 % (0.0-4.3) 12/16/20 07:06 Baso % (Auto) 0.1 % (0.0-1.8) 12/16/20 07:06 Lymph # (Auto) 1.5 K/mm3 (1.2-5.4) 12/16/20 07:06 [place] # (Auto) 1.1 K/mm3 (0.0-0.8) H 12/16/20 07:06 Eos # (Auto) 0.1 K/mm3 (0.0-0.4) 12/16/20 07:06 Baso # (Auto) 0.0 K/mm3 (0.0-0.1) 12/16/20 07:06 Seg Neutrophils % 81.8 % (40.0-70.0) H 12/16/20 07:06 Seg Neutrophils # 12.0 K/mm3 (1.8-7.7) H 12/16/20 07:06 D-Dimer 185.58 ng/mlDDU (0-234) 12/06/20 15:24 ABG pH 7.441 (7.320-7.450) 12/13/20 15:33 POC ABG pCO2 33.7 mmHg (32.0-48.0) 12/13/20 15:33 POC ABG pO2 70.0 mmHg (83-108) L 12/13/20 15:33 POC ABG HCO3 22.4 12/13/20 15:33 ABG O2 Saturation 94.9 (0-100) 12/13/20 15:33 POC ABG Base Excess -1.2 12/13/20 15:33 ABG Hemoglobin 10.4 (12.0-17.5) L 12/13/20 15:33 ABG Oxyhemoglobin 93.9 (94-98) L 12/13/20 15:33 ABG Methemoglobin 0.3 (0.0-1.5) 12/13/20 15:33 ABG Sodium 131.5 mmol/L (136.0-145.0) L 12/13/20 15:33 ABG Potassium 4.0 mmol/L (3.40-4.50) 12/13/20 15:33 ABG Chloride 100.0 mmol/L (98-107) 12/13/20 15:33 ABG Glucose 239 mg/dL (65-95) H 12/13/20 15:33 Carboxyhemoglobin 0.8 (0.5-1.5) 12/13/20 15:33 FiO2 % 40.0 12/13/20 15:33 Sodium 135 mmol/L (137-145) L 12/16/20 07:06 Potassium 4.1 mmol/L (3.6-5.0) 12/16/20 07:06 Chloride 103.2 mmol/L (98-107) 12/16/20 07:06 Carbon Dioxide 21 mmol/L (22-30) L 12/16/20 07:06 Anion Gap 15 mmol/L 12/16/20 07:06 BUN 11 mg/dL (7-17) 12/16/20 07:06 Creatinine 0.8 mg/dL (0.6-1.2) 12/16/20 07:06 Estimated GFR > 60 ml/min 12/16/20 07:06 BUN/Creatinine Ratio 14 % 12/16/20 07:06 Glucose 80 mg/dL (65-100) 12/16/20 07:06 POC Glucose 138 mg/dL (70-105) H 12/16/20 11:16 Hemoglobin A1c 8.2 % (4-6) H 12/07/20 02:12 Lactic Acid 1.10 mmol/L (0.7-2.0) 12/06/20 23:55 Calcium 9.1 mg/dL (8.4-10.2) 12/16/20 07:06 Iron 22 ug/dL (37-170) L 12/07/20 07:28 TIBC 341 mcg/dL (250-450) 12/07/20 07:28 % Saturation 6.45 % 12/07/20 07:28 Transferrin 292 mg/dl (192-382) 12/07/20 07:28 Ferritin 40.7 ng/mL (10.0-200.0) 12/06/20 15:24 Total Bilirubin 0.40 mg/dL (0.1-1.2) 12/07/20 02:12 AST 26 units/L (5-40) 12/07/20 02:12 ALT 9 units/L (7-56) 12/07/20 02:12 Alkaline Phosphatase 94 units/L (35-129) 12/07/20 02:12 Lactate Dehydrogenase 273 units/L (91-180) H 12/09/20 13:32 Troponin T < 0.010 ng/mL (0.00-0.029) 12/06/20 14:04 C-Reactive Protein 7.10 mg/dL (0.00-1.30) H 12/06/20 15:24 NT-Pro-B Natriuret Pep 150.7 pg/mL (0-450) 12/09/20 00:43 Total Protein 8.3 g/dL (6.3-8.2) H 12/07/20 02:12 Albumin 3.2 g/dL (3.9-5) L 12/07/20 02:12 Albumin/Globulin Ratio 0.6 % 12/07/20 02:12 Vitamin B12 304.1 pg/mL (211-911) 12/07/20 07:28 RBC Folic Acid 711 ng/mL (>280) 12/07/20 07:28 Procalcitonin < 0.05 ng/mL (<0.15) 12/06/20 15:24 HCG, Qual Negative (Negative) 12/06/20 14:04 Arterial Blood Glucose 239 mg/dL (65-95) H 12/13/20 15:33 Arterial Blood Ionized Calcium 4.7 mg/dL (4.6-5.3) 12/13/20 15:33 Urine Color Yellow (Yellow) 12/07/20 Unknown Urine Turbidity Clear (Clear) 12/07/20 Unknown Urine pH 7.0 (5.0-7.0) 12/07/20 Unknown Ur Specific Daisy 1.017 (1.003-1.030) 12/07/20 Unknown Urine Protein <15 mg/dl mg/dL (Negative) 12/07/20 Unknown Urine Glucose (UA) 150 mg/dL (Negative) 12/07/20 Unknown Urine Ketones Neg mg/dL (Negative) 12/07/20 Unknown Urine Blood Neg (Negative) 12/07/20 Unknown Urine Nitrite Neg (Negative) 12/07/20 Unknown Urine Bilirubin Neg (Negative) 12/07/20 Unknown Urine Urobilinogen 2.0 mg/dL (<2.0) 12/07/20 Unknown Ur Leukocyte Esterase Neg (Negative) 12/07/20 Unknown Urine WBC (Auto) < 1.0 /HPF (0.0-6.0) 12/07/20 Unknown Urine RBC (Auto) 1.0 /HPF (0.0-6.0) 12/07/20 Unknown U Epithel Cells (Auto) 6.0 /HPF (0-13.0) 12/07/20 Unknown DELFINO Screen Negative (Negative) 12/09/20 00:43 Coronavirus (PCR) Negative (Negative) 12/06/20 08:46 HIV-1 RNA PCR copies/ml 010053 Copies/mL H 12/13/20 08:19 HIV-1 RNA (PCR) log 5.17 Log cps/mL H 12/13/20 08:19 AFB Identification 12/13/20 Unknown AFB Identification 12/13/20 Unknown Fungal Id Prelim 12/13/20 Unknown Microbiology: Microbiology 12/13/20 08:19 Peripheral/Venous Blood Culture - Preliminary NO GROWTH AFTER 72 HOURS 12/13/20 11:09 Peripheral/Venous Blood Culture - Preliminary NO GROWTH AFTER 48 HOURS - Imaging and Cardiology Chest x-ray: report reviewed Santiago/IV: Voiding Method Toilet Active Medications - Current Medications Current Medications: Generic Name Dose Route Start Last Admin Trade Name Freq PRN Reason Stop Dose Admin Acetaminophen 650 mg 12/06/20 21:36 Acetaminophen 325 Mg Tab PO Q4H PRN Pain MILD(1-3)/Fever >100.5/RODRIGUES Albuterol/Ipratropium 1 ampul 12/07/20 08:00 12/16/20 08:43 Ipratropium/Albuterol Sulfate 3 Ml Ampul.Neb IH 1 ampul TIDRT DARYA Administration Ascorbic Acid 1,000 mg 12/06/20 22:00 12/16/20 10:46 Ascorbic Acid 500 Mg Tab PO Not Given BID DARYA Cholecalciferol 5,000 unit 12/06/20 22:00 12/16/20 10:46 Cholecalciferol (Vit D3) 5,000 Unit Tab PO 5,000 unit DAILY DARYA Administration Darunavir 800 mg 12/07/20 16:00 12/16/20 10:45 Darunavir 800 Mg Tab PO 800 mg QDAY DARYA Administration Emtricitabine 200 mg 12/07/20 16:00 12/16/20 10:45 Emtricitabine 200 Mg Cap PO 200 mg QDAY DARYA Administration Famotidine 20 mg 12/06/20 22:00 12/16/20 10:45 Famotidine 20 Mg Tab PO 20 mg BID DARYA Administration Fluconazole 200 mg 12/09/20 13:00 12/16/20 10:45 Fluconazole 200 Mg Tab PO 200 mg QDAY DARYA Administration Protocol Guaifenesin 200 mg 12/06/20 23:59 12/15/20 06:06 Guaifenesin 100 Mg/5 Ml Oral Liqd PO 200 mg Q8H PRN Administration Cough Sodium Chloride 1,000 mls @ 100 mls/hr 12/13/20 05:00 12/15/20 22:42 Nacl 0.9% 1000 Ml IV 100 mls/hr DIRECT DARYA Administration Trimethoprim/Sulfamethoxazole 528.125 mls @ 350 mls/hr 12/14/20 10:00 12/16/20 10:44 450 mg/ Dextrose IV Not Given Q8H DARYA Protocol Insulin Glargine 25 units 12/12/20 08:00 12/16/20 08:16 Insulin Glargine 100 Units/Ml SUB-Q Not Given QAMDIAB [facility] Insulin Human Lispro 0 unit 12/09/20 22:00 12/16/20 11:21 Insulin Lispro 100 Unit/Ml SUB-Q Not Given [facility] Protocol Metformin HCl 500 mg 12/06/20 21:30 12/16/20 08:16 Metformin Xr 500mg Tab PO [facility] Metoclopramide HCl 10 mg 12/06/20 21:36 12/13/20 22:35 Metoclopramide 10 Mg/2 Ml Inj IV 10 mg Q6H PRN Administration Nausea And Vomiting Morphine Sulfate 2 mg 12/12/20 14:28 12/16/20 07:56 Morphine 2 Mg/1 Ml Inj IV 2 mg Q4H PRN Administration Pain, Moderate (4-6) Ondansetron HCl 4 mg 12/06/20 21:36 12/15/20 23:11 Ondansetron 4 Mg/2 Ml Inj IV 4 mg Q8H PRN Administration Nausea And Vomiting Oxycodone/Acetaminophen 2 tab 12/07/20 18:00 12/14/20 21:44 Oxycodone /Acetaminophen 5-325mg Tab PO 2 tab Q6H PRN Administration Pain, Moderate (4-6) Polyethylene Glycol 17 gm 12/11/20 18:05 12/11/20 18:24 Polyethylene Glycol 3350 17 Gm Powder PO 17 gm QDAY PRN Administration Constipation Prednisone 40 mg 12/16/20 10:00 12/16/20 10:45 Prednisone 20 Mg Tab PO 12/20/20 10:01 40 mg QDAY DARYA Administration Prednisone 20 mg 12/21/20 10:00 Prednisone 10 Mg Tab PO 12/31/20 10:01 QDAY DARYA Ritonavir 100 mg 12/07/20 16:00 12/16/20 10:45 Ritonavir 100 Mg Tab PO 100 mg QDAY DARYA Administration Sodium Chloride 10 ml 12/06/20 22:00 12/16/20 10:45 Sodium Chloride 0.9% 10 Ml Flush Syringe IV 10 ml BID DARYA Administration Sodium Chloride 10 ml 12/06/20 21:36 Sodium Chloride 0.9% 10 Ml Flush Syringe IV PRN PRN LINE FLUSH Tenofovir Disoproxil Fumarate 300 mg 12/07/20 16:00 12/16/20 10:46 Tenofovir 300 Mg Tab PO 300 mg QDAY DARYA Administration Tramadol HCl 50 mg 12/06/20 21:21 Tramadol 50 Mg Tab PO Q8H PRN PAIN (4-6) Zinc Sulfate 220 mg 12/17/20 10:00 Zinc Sulfate 220 Mg Cap PO DAILY DARYA Zolpidem Tartrate 5 mg 12/07/20 22:00 12/16/20 03:38 Zolpidem 5 Mg Tab PO 5 mg QHS PRN Administration Sleep Nutrition/Malnutrition Assess - Dietary Evaluation Nutrition/Malnutrition Findings: Nutrition Notes Start: 12/07/20 15:58 Freq: Status: Active Protocol: Document 12/15/20 11:46 LM (Rec: 12/15/20 12:00 LM [id number]) Nutrition Notes Initial or Follow up Reassessment Current Diagnosis Diabetes,Sepsis,Heart Failure, Respiratory Failure Other Pertinent Diagnosis pneu Current Diet Consistent CHO, vegetarian Labs/Tests POC 249 Pertinent Medications Metformin Humalog Lantus NS at 100ml/hr Height 5 ft 7 in Weight 87 kg [place] Body Weight (kg) 61.36 BMI 30.0 Weight Status Obese Subjective/Other Information Pt stated she ate 75% of breakfast and drank Glucerna. Pt stated she would like broth or soup due to having stomach ache. Percent of energy/protein needs met: 100%/100% (PO and ONS) Burn Absent Trauma Absent Current % PO Good (75-100%) Minimum of two criteria No physical signs of malnutrition #1 Nutrition Diagnosis Inadequate oral intake As Evidenced by Signs and Symptoms Pt eating 75% Diagnosis Progress(for reassessment Improved documentation) Is patient on ventilator? No Is Patient Ambulatory and/or Out of Bed No REE-([facility]-confined to bed) 1925.376 Kcal/Kg value to use for calculation 19 Approximate Energy Requirements Using 1653 kcal/Kg Additional Notes Protein: (0.8-1g/kg AdjBW: 75kg) 60-75g Fluid: 1ml/kcal or per MD Nutrition Intervention Change Diet Order: Continue Add Supplement/Snack (indicate name/kcal Glucerna BID /protein ) Provides kCal: 440 Provides Protein (gm) 20 Goal #1 Meet at least 75% of protein and energy needs Follow-Up By: 12/21/20 Additional Comments F/U for stable PO intakes, ONS - Malnutrition Assessment Minimum of two criteria: No physical signs of malnutrition
[2020-12-16 12:53] LABS: CD4/CD8 Ratio 0.02 (0.86-5.00)
--- NOTE | 2020-12-16 17:15 | Progress Note ---
Assessment and Plan Cultures: Blood culture 12/06/2020 no growth 12/06/2020 urine culture: Usual skin korin 12/09/2020 1,3 arvd-F-onsakh: >500, strongly positive. 12/13/2020 blood culture: no growth 12/13/2020 BAL washings culture: Usual respiratory korin A/P: 35 yo F PMHx HIV, Dm2, CHF admitted with SOB, myalgias. #Bilateral PNA: CT shows bilateral groundglass opacities. Admitted with SOB and myalgias. Was seen here 3 weeks previously and tested negative for COVID then, treated empiric with abx. No improvement in symptoms, readmitted. CT without PE, but with worsening GGO bilaterally. Normal procalcitonin. Other viral etiology? Doubt opportunistic infection given historical excellent control of HIV. However patient noted with oral candidiasis no recent CD4 viral load. Noted mild hypoxia. She does not have any pets, and [place] the city. No recent travel, no sick contacts. No travel to the [place]. LDH elevated. Status post bronchoscopy 12/12/2020, no gross endobronchial lesions were seen. Right lower lobe lung biopsy showed findings consistent with pneumocystis. BAL cytology also showed pneumocystis. As per discussion with patient, she reports good compliance with her HIV medications. She used to be undetectable. She also admits to vaping twice daily since August 2020. Vaping induced lung injury is another possibility. #Acute hypoxic respiratory failure: secondary to above. #HIV: supposedly well controlled with Truvada, norvir, and darunavir. Has outpatient ID doc. Given evidence of thrush and PJP pneumonia, I doubt she has good control of HIV. #Oral candidiasis Recs: -continue IV Bactrim with adjunctive steroids -She remains on HFNC, as such would discharge home yet. When ready needs to do Bactrim 2xDS q8h to complete 3 weeks of Bactrim therapy. -Continue fluconazole -Continue home ART: Truvada, Norvir, darunavir for now. -f/u HIV RNA PCR, CD4 count, HIV genotype ordered Shilo Harden MD [facility] O: [phone] F: [phone] Subjective Date of service: 12/16/20 Principal diagnosis: Sepsis; Ac hypoxemic resp failure; PJP Pneumonia; CHF; PUI COVID-19; HIV+ve Interval history: Afebrile, white count 14.7 today. Remains on high flow nasal cannula. Objective - Exam Narrative Exam: Physical Exam: Constitutional: Alert, cooperative. No acute distress Head, Ears, Nose: Normocephalic, atraumatic. External ears, nose normal Eyes: Conjunctivae/corneas clear. No icterus. No ptosis. Neck: Supple, no meningeal signs Oral: dentition fair, no thrush Cardiovascular: S1, S2 normal. Respiratory: Good air entry, clear to auscultation bilaterally GI: Soft, non-tender; bowel sounds normal. No peritoneal signs. Musculoskeletal: No pedal edema, no cyanosis. Skin: No rash or abscess Hem/Lymphatic: No palpable cervical or supraclavicular nodes. No lymphangitis Psych: Mood ok. Affect normal Neurological: Awake, alert, oriented. No gross abnormality - Constitutional Vitals: Vital Signs Temp Pulse Resp BP Pulse Ox 98.4 F 121 H 18 100/54 93 12/16/20 12:03 12/16/20 16:17 12/16/20 16:17 12/16/20 12:03 12/16/20 15:05 Temperature -Last 24 Hours Temperature 98.4 F Temperature 97.9 F Temperature 98.1 F - Labs CBC & Chem 7: 12/16/20 07:06 12/16/20 07:06 Labs: Abnormal lab results 12/13/20 12/13/20 12/15/20 Range/Units 08:19 08:19 21:34 WBC (4.5-11.0) K/mm3 RBC (3.65-5.03) M/mm3 Hgb (10.1-14.3) gm/dl Hct (30.3-42.9) % MCV (79-97) fl MCH (28-32) pg Plt Count (140-440) K/mm3 Lymph % (Auto) (13.4-35.0) % [place] # (Auto) (0.0-0.8) K/mm3 Seg Neutrophils % (40.0-70.0) % Seg Neutrophils # (1.8-7.7) K/mm3 Sodium (137-145) mmol/L Carbon Dioxide (22-30) mmol/L POC Glucose 294 H (70-105) mg/dL Lymph Enumerat CD4/CD8 0.02 L (0.86-5.00) % CD3 Cells 90 H (57-85) % % CD4 Cells 2 L (30-61) % Absolute CD4 Count 22 L (490-1740) cells/uL % CD8 Cells 88 H (12-42) % Absolute CD19 Count 72 L (110-660) cells/uL HIV-1 RNA PCR copies/ml 623321 H Copies/mL HIV-1 RNA (PCR) log 5.17 H Log cps/mL 12/16/20 12/16/20 12/16/20 Range/Units 07:06 07:06 11:16 WBC 14.7 H (4.5-11.0) K/mm3 RBC 3.50 L (3.65-5.03) M/mm3 Hgb 8.5 L (10.1-14.3) gm/dl Hct 26.3 L (30.3-42.9) % MCV 75 L (79-97) fl MCH 24 L (28-32) pg Plt Count 540 H (140-440) K/mm3 Lymph % (Auto) 10.3 L (13.4-35.0) % [place] # (Auto) 1.1 H (0.0-0.8) K/mm3 Seg Neutrophils % 81.8 H (40.0-70.0) % Seg Neutrophils # 12.0 H (1.8-7.7) K/mm3 Sodium 135 L (137-145) mmol/L Carbon Dioxide 21 L (22-30) mmol/L POC Glucose 138 H (70-105) mg/dL Lymph Enumerat CD4/CD8 (0.86-5.00) % CD3 Cells (57-85) % % CD4 Cells (30-61) % Absolute CD4 Count (490-1740) cells/uL % CD8 Cells (12-42) % Absolute CD19 Count (110-660) cells/uL HIV-1 RNA PCR copies/ml Copies/mL HIV-1 RNA (PCR) log Log cps/mL 12/16/20 Range/Units 16:34 WBC (4.5-11.0) K/mm3 RBC (3.65-5.03) M/mm3 Hgb (10.1-14.3) gm/dl Hct (30.3-42.9) % MCV (79-97) fl MCH (28-32) pg Plt Count (140-440) K/mm3 Lymph % (Auto) (13.4-35.0) % [place] # (Auto) (0.0-0.8) K/mm3 Seg Neutrophils % (40.0-70.0) % Seg Neutrophils # (1.8-7.7) K/mm3 Sodium (137-145) mmol/L Carbon Dioxide (22-30) mmol/L POC Glucose 354 H (70-105) mg/dL Lymph Enumerat CD4/CD8 (0.86-5.00) % CD3 Cells (57-85) % % CD4 Cells (30-61) % Absolute CD4 Count (490-1740) cells/uL % CD8 Cells (12-42) % Absolute CD19 Count (110-660) cells/uL HIV-1 RNA PCR copies/ml Copies/mL HIV-1 RNA (PCR) log Log cps/mL
--- NOTE | 2020-12-16 17:35 | Progress Note ---
Assessment and Plan Severe Sepsis Acute hypoxic respiratory failure Bilateral pneumonia (PJP Pneumonia) CHF PUI COVID-19 HIV DM II Anemia - continue to watch watch closely with short leash to transfer to step down unit vs ICU - continue therapy for severe PJP pneumonia started (on IV bactrim) - follow other bronch results including special stains (5-7 days) - continue care as below otherwise; - continue to wean supplemental oxygen to keep O2 sats > 90% - prn NIV for increased work of breathing (will hold on scheduling re: risk of pneumothoraces with PJP pneumonia) - prn bronchodilators (HILDA) with pulm hygiene per RT - continue systemic steroids - continue to avoid nephrotoxins, renally dose all medications - continue accuchecks with glycemic control per SSI (While critically ill target blood glucose of 140-180 mg/dL; avoid hypoglycemia) - aspiration precautions - complete AB's per ID rec's - Maintenance of sleep-wake cycle, avoid delirium - mobility protocols to prevent pressure ulcers - PT/OT as tolerated - Wound care per RN/WCT - continue accuchecks with glycemic control per SSI for target blood glucose < 180 mg/dL - tobacco abstinence strongly counseled at the bedside - home oxygen evaluation at discharge - prn analgesia per pain score - GI & VTE prophylaxis - Flu & pneumovax per protocol - Pulmonary out patient follow up for PFTs and optimization of respiratory status - continue other care per attending / other consultants - discharge planning ongoing concurrently .... Re-evaluate in am & prn CONDITION: CRITICAL PROGNOSIS: GUARDED CODE STATUS: FULL CODE The high probability of a clinically significant, sudden or life-threatening deterioration of the [respiratory, cardiovascular & neurologic] system(s) required my full and direct attention, intervention and personal management. The aggregate critical care time was [32] minutes without overlap. Time includes spent on; [x] Data Review and interpretation [x] Patient assessment and monitoring of vital signs [x] Documentation [x] Medication orders and management Subjective Date of service: 12/16/20 Principal diagnosis: Sepsis; Ac hypoxemic resp failure; PJP Pneumonia; CHF; PUI COVID-19; HIV+ve Interval history: Patient is seen today for: Sepsis; Acute hypoxemic respiratory failure; Bilateral pneumonia (PJP Pneumonia); CHF; PUI COVID-19; HIV +ve; DM II Seen and examined at bedside; 24hour events reviewed; nursing and respiratory care staff consulted; no adverse overnight events reported to me; resting peacefully in bed; remains on supplemental oxygen at 70% FiO2; denies acute chest pain or SOB; No N/V/F/C Objective Vital Signs - 12hr 12/16/20 12/16/20 12/16/20 08:15 08:35 08:40 Temperature Pulse Rate Pulse Rate [ 112 H Bilateral] Respiratory 20 Rate Respiratory 18 Rate [Bilateral ] Blood Pressure O2 Sat by Pulse 96 Oximetry 12/16/20 12/16/20 12/16/20 12:03 15:05 16:17 Temperature 98.4 F Pulse Rate 96 H Pulse Rate [ 121 H Bilateral] Respiratory 22 Rate Respiratory 18 Rate [Bilateral ] Blood Pressure 100/54 O2 Sat by Pulse 90 93 Oximetry Constitutional: alert, appears uncomfortable, other (young female with mildly increased respiratory effort at rest ) Eyes: non-icteric ENT: oropharynx moist, other (oral candidiasis) Neck: supple, no lymphadenopathy, no JVD Effort: mildly labored Ascultation: Bilateral: diminished breath sounds, rales (faint in bases) Percussion: Bilateral: not dull Cardiovascular: regular rate and rhythm, other (S1,S2) Gastrointestinal: normoactive bowel sounds, soft, non-tender, non-distended Integumentary: normal Extremities: no cyanosis, no edema, pulses normal, no ischemia or petechiae Neurologic: normal mental status, non-focal exam, pupils equal and round, CN II- XII normal, motor strength normal and (but wekness) Psychiatric: mood appropriate, affect normal CBC and BMP: 12/16/20 07:06 12/16/20 07:06 ABG, PT/INR, D-dimer: ABG ABG pH 7.441 (7.320-7.450) 12/13/20 15:33 POC ABG pCO2 33.7 mmHg (32.0-48.0) 12/13/20 15:33 POC ABG pO2 70.0 mmHg (83-108) L 12/13/20 15:33 POC ABG HCO3 22.4 12/13/20 15:33 ABG O2 Saturation 94.9 (0-100) 12/13/20 15:33 PT/INR, D-dimer D-Dimer 185.58 ng/mlDDU (0-234) 12/06/20 15:24 Abnormal lab findings: Abnormal Labs 12/06/20 12/06/20 12/06/20 14:04 14:04 15:24 WBC RBC 3.57 L Hgb 8.8 L Hct 27.3 L MCV 76 L MCH 25 L Plt Count Lymph % (Auto) [place] % (Auto) 8.5 H [place] # (Auto) Seg Neutrophils % Seg Neutrophils # POC ABG pO2 ABG Hemoglobin ABG Oxyhemoglobin ABG Sodium ABG Glucose Carboxyhemoglobin Sodium 136 L Carbon Dioxide Glucose 149 H POC Glucose Hemoglobin A1c Calcium Iron Lactate Dehydrogenase 418 H C-Reactive Protein 7.10 H Total Protein 8.6 H Albumin 2.9 L Arterial Blood Glucose Lymph Enumerat CD4/CD8 % CD3 Cells % CD4 Cells Absolute CD4 Count % CD8 Cells Absolute CD19 Count HIV-1 RNA PCR copies/ml HIV-1 RNA (PCR) log 12/07/20 12/07/20 12/07/20 02:12 02:12 02:12 WBC RBC 3.61 L Hgb 9.2 L Hct 27.8 L MCV 77 L MCH 26 L Plt Count Lymph % (Auto) [place] % (Auto) 9.4 H [place] # (Auto) Seg Neutrophils % Seg Neutrophils # POC ABG pO2 ABG Hemoglobin ABG Oxyhemoglobin ABG Sodium ABG Glucose Carboxyhemoglobin Sodium Carbon Dioxide Glucose 123 H POC Glucose Hemoglobin A1c 8.2 H Calcium 8.3 L Iron Lactate Dehydrogenase C-Reactive Protein Total Protein 8.3 H Albumin 3.2 L Arterial Blood Glucose Lymph Enumerat CD4/CD8 % CD3 Cells % CD4 Cells Absolute CD4 Count % CD8 Cells Absolute CD19 Count HIV-1 RNA PCR copies/ml HIV-1 RNA (PCR) log 12/07/20 12/07/20 12/07/20 07:28 07:48 11:48 WBC RBC Hgb Hct MCV MCH Plt Count Lymph % (Auto) [place] % (Auto) [place] # (Auto) Seg Neutrophils % Seg Neutrophils # POC ABG pO2 ABG Hemoglobin ABG Oxyhemoglobin ABG Sodium ABG Glucose Carboxyhemoglobin Sodium Carbon Dioxide Glucose POC Glucose 290 H 217 H Hemoglobin A1c Calcium Iron 22 L Lactate Dehydrogenase C-Reactive Protein Total Protein Albumin Arterial Blood Glucose Lymph Enumerat CD4/CD8 % CD3 Cells % CD4 Cells Absolute CD4 Count % CD8 Cells Absolute CD19 Count HIV-1 RNA PCR copies/ml HIV-1 RNA (PCR) log 12/07/20 12/07/20 12/08/20 16:46 22:36 08:50 WBC RBC Hgb Hct MCV MCH Plt Count Lymph % (Auto) [place] % (Auto) [place] # (Auto) Seg Neutrophils % Seg Neutrophils # POC ABG pO2 ABG Hemoglobin ABG Oxyhemoglobin ABG Sodium ABG Glucose Carboxyhemoglobin Sodium Carbon Dioxide Glucose POC Glucose 203 H 189 H 293 H Hemoglobin A1c Calcium Iron Lactate Dehydrogenase C-Reactive Protein Total Protein Albumin Arterial Blood Glucose Lymph Enumerat CD4/CD8 % CD3 Cells % CD4 Cells Absolute CD4 Count % CD8 Cells Absolute CD19 Count HIV-1 RNA PCR copies/ml HIV-1 RNA (PCR) log 12/08/20 12/08/20 12/08/20 11:35 16:18 16:39 WBC RBC Hgb Hct MCV MCH Plt Count Lymph % (Auto) [place] % (Auto) [place] # (Auto) Seg Neutrophils % Seg Neutrophils # POC ABG pO2 ABG Hemoglobin 9.4 L ABG Oxyhemoglobin ABG Sodium 132.7 L ABG Glucose 303 H Carboxyhemoglobin 0.4 L Sodium Carbon Dioxide Glucose POC Glucose 360 H 288 H Hemoglobin A1c Calcium Iron Lactate Dehydrogenase C-Reactive Protein Total Protein Albumin Arterial Blood Glucose 303 H Lymph Enumerat CD4/CD8 % CD3 Cells % CD4 Cells Absolute CD4 Count % CD8 Cells Absolute CD19 Count HIV-1 RNA PCR copies/ml HIV-1 RNA (PCR) log 12/08/20 12/09/20 12/09/20 21:08 13:32 21:43 WBC RBC Hgb Hct MCV MCH Plt Count Lymph % (Auto) [place] % (Auto) [place] # (Auto) Seg Neutrophils % Seg Neutrophils # POC ABG pO2 ABG Hemoglobin ABG Oxyhemoglobin ABG Sodium ABG Glucose Carboxyhemoglobin Sodium Carbon Dioxide Glucose POC Glucose 300 H 394 H Hemoglobin A1c Calcium Iron Lactate Dehydrogenase 273 H C-Reactive Protein Total Protein Albumin Arterial Blood Glucose Lymph Enumerat CD4/CD8 % CD3 Cells % CD4 Cells Absolute CD4 Count % CD8 Cells Absolute CD19 Count HIV-1 RNA PCR copies/ml HIV-1 RNA (PCR) log 12/10/20 12/10/20 12/10/20 07:37 11:04 15:37 WBC RBC Hgb Hct MCV MCH Plt Count Lymph % (Auto) [place] % (Auto) [place] # (Auto) Seg Neutrophils % Seg Neutrophils # POC ABG pO2 ABG Hemoglobin ABG Oxyhemoglobin ABG Sodium ABG Glucose Carboxyhemoglobin Sodium Carbon Dioxide Glucose POC Glucose 431 H 386 H 339 H Hemoglobin A1c Calcium Iron Lactate Dehydrogenase C-Reactive Protein Total Protein Albumin Arterial Blood Glucose Lymph Enumerat CD4/CD8 % CD3 Cells % CD4 Cells Absolute CD4 Count % CD8 Cells Absolute CD19 Count HIV-1 RNA PCR copies/ml HIV-1 RNA (PCR) log 12/10/20 12/11/20 12/11/20 21:09 07:24 10:56 WBC RBC Hgb Hct MCV MCH Plt Count Lymph % (Auto) [place] % (Auto) [place] # (Auto) Seg Neutrophils % Seg Neutrophils # POC ABG pO2 ABG Hemoglobin ABG Oxyhemoglobin ABG Sodium ABG Glucose Carboxyhemoglobin Sodium Carbon Dioxide Glucose POC Glucose 412 H 399 H 431 H Hemoglobin A1c Calcium Iron Lactate Dehydrogenase C-Reactive Protein Total Protein Albumin Arterial Blood Glucose Lymph Enumerat CD4/CD8 % CD3 Cells % CD4 Cells Absolute CD4 Count % CD8 Cells Absolute CD19 Count HIV-1 RNA PCR copies/ml HIV-1 RNA (PCR) log 12/11/20 12/11/20 12/12/20 16:26 22:31 00:53 WBC RBC Hgb Hct MCV MCH Plt Count Lymph % (Auto) [place] % (Auto) [place] # (Auto) Seg Neutrophils % Seg Neutrophils # POC ABG pO2 ABG Hemoglobin ABG Oxyhemoglobin ABG Sodium ABG Glucose Carboxyhemoglobin Sodium Carbon Dioxide Glucose POC Glucose 320 H 361 H 255 H Hemoglobin A1c Calcium Iron Lactate Dehydrogenase C-Reactive Protein Total Protein Albumin Arterial Blood Glucose Lymph Enumerat CD4/CD8 % CD3 Cells % CD4 Cells Absolute CD4 Count % CD8 Cells Absolute CD19 Count HIV-1 RNA PCR copies/ml HIV-1 RNA (PCR) log 12/12/20 12/12/20 12/12/20 07:16 10:47 16:40 WBC RBC Hgb Hct MCV MCH Plt Count Lymph % (Auto) [place] % (Auto) [place] # (Auto) Seg Neutrophils % Seg Neutrophils # POC ABG pO2 ABG Hemoglobin ABG Oxyhemoglobin ABG Sodium ABG Glucose Carboxyhemoglobin Sodium Carbon Dioxide Glucose POC Glucose 171 H 156 H 146 H Hemoglobin A1c Calcium Iron Lactate Dehydrogenase C-Reactive Protein Total Protein Albumin Arterial Blood Glucose Lymph Enumerat CD4/CD8 % CD3 Cells % CD4 Cells Absolute CD4 Count % CD8 Cells Absolute CD19 Count HIV-1 RNA PCR copies/ml HIV-1 RNA (PCR) log 12/12/20 12/13/20 12/13/20 22:04 07:29 08:19 WBC RBC Hgb Hct MCV MCH Plt Count Lymph % (Auto) [place] % (Auto) [place] # (Auto) Seg Neutrophils % Seg Neutrophils # POC ABG pO2 ABG Hemoglobin ABG Oxyhemoglobin ABG Sodium ABG Glucose Carboxyhemoglobin Sodium Carbon Dioxide Glucose POC Glucose 214 H 211 H Hemoglobin A1c Calcium Iron Lactate Dehydrogenase C-Reactive Protein Total Protein Albumin Arterial Blood Glucose Lymph Enumerat CD4/CD8 0.02 L % CD3 Cells 90 H % CD4 Cells 2 L Absolute CD4 Count 22 L % CD8 Cells 88 H Absolute CD19 Count 72 L HIV-1 RNA PCR copies/ml HIV-1 RNA (PCR) log 12/13/20 12/13/20 12/13/20 08:19 11:09 11:23 WBC 13.3 H RBC Hgb 9.3 L Hct 29.6 L MCV 76 L MCH 24 L Plt Count 653 H Lymph % (Auto) [place] % (Auto) [place] # (Auto) 0.9 H Seg Neutrophils % 74.8 H Seg Neutrophils # 9.9 H POC ABG pO2 ABG Hemoglobin ABG Oxyhemoglobin ABG Sodium ABG Glucose Carboxyhemoglobin Sodium Carbon Dioxide Glucose POC Glucose 255 H Hemoglobin A1c Calcium Iron Lactate Dehydrogenase C-Reactive Protein Total Protein Albumin Arterial Blood Glucose Lymph Enumerat CD4/CD8 % CD3 Cells % CD4 Cells Absolute CD4 Count % CD8 Cells Absolute CD19 Count HIV-1 RNA PCR copies/ml 109207 H HIV-1 RNA (PCR) log 5.17 H 12/13/20 12/13/20 12/13/20 15:33 16:00 20:59 WBC RBC Hgb Hct MCV MCH Plt Count Lymph % (Auto) [place] % (Auto) [place] # (Auto) Seg Neutrophils % Seg Neutrophils # POC ABG pO2 70.0 L ABG Hemoglobin 10.4 L ABG Oxyhemoglobin 93.9 L ABG Sodium 131.5 L ABG Glucose 239 H Carboxyhemoglobin Sodium Carbon Dioxide Glucose POC Glucose 225 H 267 H Hemoglobin A1c Calcium Iron Lactate Dehydrogenase C-Reactive Protein Total Protein Albumin Arterial Blood Glucose 239 H Lymph Enumerat CD4/CD8 % CD3 Cells % CD4 Cells Absolute CD4 Count % CD8 Cells Absolute CD19 Count HIV-1 RNA PCR copies/ml HIV-1 RNA (PCR) log 12/14/20 12/14/20 12/14/20 07:15 07:15 07:41 WBC 11.5 H RBC 3.54 L Hgb 8.5 L Hct 26.5 L MCV 75 L MCH 24 L Plt Count 513 H Lymph % (Auto) [place] % (Auto) [place] # (Auto) Seg Neutrophils % Seg Neutrophils # POC ABG pO2 ABG Hemoglobin ABG Oxyhemoglobin ABG Sodium ABG Glucose Carboxyhemoglobin Sodium 134 L Carbon Dioxide Glucose 154 H POC Glucose 162 H Hemoglobin A1c Calcium Iron Lactate Dehydrogenase C-Reactive Protein Total Protein Albumin Arterial Blood Glucose Lymph Enumerat CD4/CD8 % CD3 Cells % CD4 Cells Absolute CD4 Count % CD8 Cells Absolute CD19 Count HIV-1 RNA PCR copies/ml HIV-1 RNA (PCR) log 12/14/20 12/14/20 12/14/20 11:58 17:16 21:07 WBC RBC Hgb Hct MCV MCH Plt Count Lymph % (Auto) [place] % (Auto) [place] # (Auto) Seg Neutrophils % Seg Neutrophils # POC ABG pO2 ABG Hemoglobin ABG Oxyhemoglobin ABG Sodium ABG Glucose Carboxyhemoglobin Sodium Carbon Dioxide Glucose POC Glucose 260 H 314 H 402 H Hemoglobin A1c Calcium Iron Lactate Dehydrogenase C-Reactive Protein Total Protein Albumin Arterial Blood Glucose Lymph Enumerat CD4/CD8 % CD3 Cells % CD4 Cells Absolute CD4 Count % CD8 Cells Absolute CD19 Count HIV-1 RNA PCR copies/ml HIV-1 RNA (PCR) log 12/15/20 12/15/20 12/15/20 07:33 11:13 17:09 WBC RBC Hgb Hct MCV MCH Plt Count Lymph % (Auto) [place] % (Auto) [place] # (Auto) Seg Neutrophils % Seg Neutrophils # POC ABG pO2 ABG Hemoglobin ABG Oxyhemoglobin ABG Sodium ABG Glucose Carboxyhemoglobin Sodium Carbon Dioxide Glucose POC Glucose 249 H 344 H 251 H Hemoglobin A1c Calcium Iron Lactate Dehydrogenase C-Reactive Protein Total Protein Albumin Arterial Blood Glucose Lymph Enumerat CD4/CD8 % CD3 Cells % CD4 Cells Absolute CD4 Count % CD8 Cells Absolute CD19 Count HIV-1 RNA PCR copies/ml HIV-1 RNA (PCR) log 12/15/20 12/16/20 12/16/20 21:34 07:06 07:06 WBC 14.7 H RBC 3.50 L Hgb 8.5 L Hct 26.3 L MCV 75 L MCH 24 L Plt Count 540 H Lymph % (Auto) 10.3 L [place] % (Auto) [place] # (Auto) 1.1 H Seg Neutrophils % 81.8 H Seg Neutrophils # 12.0 H POC ABG pO2 ABG Hemoglobin ABG Oxyhemoglobin ABG Sodium ABG Glucose Carboxyhemoglobin Sodium 135 L Carbon Dioxide 21 L Glucose POC Glucose 294 H Hemoglobin A1c Calcium Iron Lactate Dehydrogenase C-Reactive Protein Total Protein Albumin Arterial Blood Glucose Lymph Enumerat CD4/CD8 % CD3 Cells % CD4 Cells Absolute CD4 Count % CD8 Cells Absolute CD19 Count HIV-1 RNA PCR copies/ml HIV-1 RNA (PCR) log 12/16/20 12/16/20 11:16 16:34 WBC RBC Hgb Hct MCV MCH Plt Count Lymph % (Auto) [place] % (Auto) [place] # (Auto) Seg Neutrophils % Seg Neutrophils # POC ABG pO2 ABG Hemoglobin ABG Oxyhemoglobin ABG Sodium ABG Glucose Carboxyhemoglobin Sodium Carbon Dioxide Glucose POC Glucose 138 H 354 H Hemoglobin A1c Calcium Iron Lactate Dehydrogenase C-Reactive Protein Total Protein Albumin Arterial Blood Glucose Lymph Enumerat CD4/CD8 % CD3 Cells % CD4 Cells Absolute CD4 Count % CD8 Cells Absolute CD19 Count HIV-1 RNA PCR copies/ml HIV-1 RNA (PCR) log Allied health notes reviewed: nursing
[2020-12-16] MEDS: SODIUM CHLORIDE 0.9% 1000 ML 1,000 ML IV SCH (21:49)
[2020-12-17] MEDS: WATER IV SCH ×3 (01:25→18:01)
[2020-12-17] MEDS: SMX IV SCH ×3 (01:25→18:01)
[2020-12-17] MEDS: TMP IV SCH ×3 (01:25→18:01)
[2020-12-17] MEDS: DEXTROSE 5% IV SCH ×3 (01:25→18:01)
[2020-12-17] MEDS: MORPHINE 2 MG/1 ML INJ IV PRN ×2 (05:10→15:16)
[2020-12-17] MEDS: guaiFENesin 100 MG/5 ML ORAL LIQD PO PRN (06:18)
[2020-12-17] MEDS: INSULIN LISPRO 100 UNIT/ML SUB-Q SCH ×4 (08:16→22:06)
[2020-12-17] MEDS: SODIUM CHLORIDE 0.9% 1000 ML 1,000 ML IV SCH ×2 (08:25→17:40)
[2020-12-17] MEDS: metFORMIN XR 500MG TAB PO SCH (08:25)
[2020-12-17] MEDS: IPRATROPIUM/ALBUTEROL SULFATE 3 ML AMPUL.NEB IH SCH ×3 (08:53→20:32)
[2020-12-17] MEDS: INSULIN GLARGINE 100 UNITS/ML SUB-Q SCH (09:52)
[2020-12-17] MEDS: TENOFOVIR 300 MG TAB PO SCH (10:33)
[2020-12-17] MEDS: FLUCONAZOLE 200 MG TAB PO SCH (10:33)
[2020-12-17] MEDS: DARUNAVIR 800 MG TAB PO SCH (10:33)
[2020-12-17] MEDS: RITONAVIR 100 MG TAB PO SCH (10:34)
[2020-12-17] MEDS: EMTRICITABINE 200 MG CAP PO SCH (10:34)
[2020-12-17] MEDS: FAMOTIDINE 20 MG TAB PO SCH ×2 (10:35→22:07)
[2020-12-17] MEDS: ASCORBIC ACID 500 MG TAB PO SCH ×2 (10:36→22:07)
[2020-12-17] MEDS: predniSONE 20 MG TAB PO SCH (10:36)
[2020-12-17] MEDS: CHOLECALCIFEROL (VIT D3) 5,000 UNIT TAB PO SCH (10:37)
[2020-12-17] MEDS: ZINC SULFATE 220 MG CAP PO SCH (10:44)
--- NOTE | 2020-12-17 11:03 | Progress Note ---
Assessment and Plan Assessment and plan: 35-year-old female with history of HIV, type 2 diabetes and CHF comes in for 1 week of body aches cough and shortness of breath and low-grade fever. Cough is productive of mucoid sputum. Body aches are the most distressing symptom that she had. Patient is a poor historian.. Patient denies getting vaccination for coronavirus. Generalized abdominal pain. Shortness of breath present. Generalized malaise present. (1) Sepsis with acute hypoxic respiratory failure Current Visit: Yes Status: Acute Qualifiers: Severe sepsis shock status: unspecified Plan to address problem: Supplemental oxygen and keep the oxygen saturations above 92 Possible Covid pneumonia Treat for bilateral pneumonia and Covid pneumonia (2) Bilateral pneumonia Current Visit: Yes Status: Acute Plan to address problem: Treated as community-acquired pneumonia Coronavirus PCR requested IV Decadron initiated ID consult requested (3) CHF (congestive heart failure) Current Visit: No Status: Chronic Qualifiers: Heart failure type: combined systolic and diastolic Plan to address problem: Cardiogram for ejection fraction IV Lasix 40 mg every 24 (4) Person under investigation for COVID-19 Current Visit: Yes Status: Acute Plan to address problem: Coronavirus PCR requested IV Decadron initiated Zinc vitamin C and vitamin D initiated (5) HIV (human immunodeficiency virus infection) Current Visit: Yes Status: Chronic Qualifiers: HIV symptom status: asymptomatic, with no history of HIV-related illness Qualified Code(s): Z21 - Asymptomatic human immunodeficiency virus [HIV] infection status Plan to address problem: Patient on Zithromax (6) T2DM (type 2 diabetes mellitus) Current Visit: Yes Status: Chronic Qualifiers: Diabetes mellitus mcc insulin use: unspecified 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 Plan to address problem: Check hemoglobin A1c Accu-Cheks AC at bedtime Coverage as per moderate dose sliding scale Continue Metformin (7) DVT prophylaxis Current Visit: Yes Status: Acute Plan to address problem: On Lovenox and GI prophylaxis (8) Anemia Current Visit: Yes Status: Chronic Qualifiers: Anemia type: iron deficiency Plan to address problem: Probable iron deficiency anemia: Check iron levels B12 and folic acid (9) DVT prophylaxis Current Visit: No Status: Acute Plan to address problem: Lovenox and GI prophylaxis 12/07/2020 -COVID-19 test is pending -Continue with IV antibiotics for now, follow procalcitonin level -ID consulted. -Patient's hemoglobin A1c is 8.2 -HIV; patient will follow with ID 12/08/2020 -CTA showed worsening of her groundglass opacities -COVID-19 test was negative -ID consulted and recommend to continue with antibiotics for now -Patient is on her HIV medications -Patient will oxygen saturation dropped to 85% on ambulation and patient require oxygen at discharge -I put a consult for pulmonary 12/09/2020 -Patient's proBNP is normal, pulmonary ordered echo. Patient states she has history of CHF and told me she was diagnosed in this hospital but I check her records and there is no echo report. -Home oxygen arranged. 12/10/2020 -Echo showed no CHF. Patient was seen by ID and started the patient on Bactrim for suspected PCP, and fluconazole for oral candidiasis. We going to follow Fungitell and induced sputum for PCP. Patient has hyperglycemia and added 15 units of Lantus, change Solu-Medrol to prednisone 40 mg daily. Disposition is per pulmonary and ID recommendation 12/11/2020; patient is on Bactrim and fluconazole per ID recommendation. Patient is on steroid per pulmonary recommendation. Induced sputum for PCP was ordered but there was no collected, in detail was ordered. Patient's blood sugar is uncontrolled and I increase Lantus from 15 to 25 units, change sliding scale from moderate to high dose. Continue to monitor and adjust as needed. Disposition is per pulmonary and ID recommendation. Pulmonary evaluated and recommendations as follows: Patient has been scheduled for bronchoscopy with TBBx, cytology brushings, BAL tomorrow at 1pm. Patient is NPO from midnight. Enoxaparin has been stopped. Start D51/2Nsaline at midnight. 12/12: Still with generalized body pain, Bronch today, Will monitor, Pain control. lethargic, awaiting 12/13: Continue supportive care, ID input noted, patient is post Bronchosocpy 12/12- Awaiting microdata and serologies. CONTINUE PAIN CONTROL 12/14: Patient noted with worsening respiratory distress and hypoxia, chest x-ray otherwise shows improvement in symptoms. I encouraged the patient to prone herself during hours of sleep. To use pillows across her chest with deep breaths and practice incentive spirometer. We will continue to monitor wean oxygen as tolerated. Continue awaiting cultures from recent bronchoscopy 12/15/20 patient is seen and examined. shortness of breath is same. But patient is coughing. Chest x-ray shows improvement in the appearance in irrigation throughout the both lung as compared to previous exam. Continue Bactrim IV every 8 hours, prednisone 40 mg p.o. daily. Follow-up BAL culture for fungi, AFB. Follow-up HIV RNA PCR, CD4 count. ID consult. Continue current management. Recheck CBC in the morning. Out of bed to chair and PT evaluation. 12/16/20 patient seen and examined. Lab and medication reviewed.Patient is on high flow oxygen nasal cannula 18 L/min FiO2 70%. Patient feels better compared to yesterday. Decreased shortness of breath. Mild coughing. Continue Bactrim IV every 8 hours, prednisone 40 mg p.o. daily. Follow-up BAL culture for fungi, AFB. Follow-up HIV RNA PCR, CD4 count. ID consult. Continue current management. Recheck CBC in the morning. Out of bed to chair and PT evaluation. 12/17: Patient remains critically ill. Still on high flow oxygen FiO2 70% saturating 94%. Will transfer patient to [facility]. Continue to encourage prone positioning, also encourage incentive spirometer. Pulmonary following. She states that Bactrim was making her sick and she had refused but will defer to ID to see if any changes will be made. We will also obtain a GI evaluation as she states that she has not been able to tolerate diet. This will be to help evaluate for any esophageal disorder secondary to Immunocompromised condition. History Interval history: Patient seen and examined, this morning. She feels that she is not improving very emotional. She remains in bed and wants to get up out of bed. She wanted to be transferred and advised on the procedure of getting transferred. Hospitalist Physical - Physical exam Narrative exam: VITAL SIGNS: Reviewed. GENERAL: The patient appears normally developed but ill-appearing on high flow, lethargic vital signs as documented. HEAD: No signs of head trauma. EYES: Pupils are equal. Extraocular motions intact. EARS: Hearing grossly intact. MOUTH: Oropharynx is normal. NECK: No adenopathy, no JVD. CHEST: Chest with diminished breath sounds bilaterally with otherwise crackles. No wheezes. CARDIAC: Regular rate and rhythm. S1 and S2, without murmurs, gallops, or rubs. VASCULAR: No Edema. Peripheral pulses normal and equal in all extremities. ABDOMEN: Soft, non tender and non distended. No rebound or guarding, and no masses palpated. Bowel Sounds normal. MUSCULOSKELETAL: Good range of motion of all major joints. Extremities without clubbing, cyanosis or edema. NEUROLOGIC EXAM: Awake but lethargic oriented x 3 No focal sensory or strength deficits. Speech normal. Follows commands. PSYCHIATRIC: Mood normal. SKIN: detail exam as documented in skin assessment - Constitutional Vitals: Temp Pulse Resp BP Pulse Ox 99.3 F 124 H 18 128/85 94 12/17/20 04:03 12/17/20 08:00 12/17/20 08:00 12/17/20 04:03 12/17/20 08:00 General appearance: Present: mild distress, well-nourished HEART Score - HEART Score Troponin: Troponin T < 0.010 ng/mL (0.00-0.029) 12/06/20 14:04 Results - Labs CBC & Chem 7: 12/16/20 07:06 12/16/20 07:06 Labs: Laboratory Last Values WBC 14.7 K/mm3 (4.5-11.0) H 12/16/20 07:06 RBC 3.50 M/mm3 (3.65-5.03) L 12/16/20 07:06 Hgb 8.5 gm/dl (10.1-14.3) L 12/16/20 07:06 Hct 26.3 % (30.3-42.9) L 12/16/20 07:06 MCV 75 fl (79-97) L 12/16/20 07:06 MCH 24 pg (28-32) L 12/16/20 07:06 MCHC 32 % (30-34) 12/16/20 07:06 RDW 14.4 % (13.2-15.2) 12/16/20 07:06 Plt Count 540 K/mm3 (140-440) H 12/16/20 07:06 Lymph % (Auto) 10.3 % (13.4-35.0) L 12/16/20 07:06 [place] % (Auto) 7.3 % (0.0-7.3) 12/16/20 07:06 Eos % (Auto) 0.5 % (0.0-4.3) 12/16/20 07:06 Baso % (Auto) 0.1 % (0.0-1.8) 12/16/20 07:06 Lymph # (Auto) 1.5 K/mm3 (1.2-5.4) 12/16/20 07:06 [place] # (Auto) 1.1 K/mm3 (0.0-0.8) H 12/16/20 07:06 Eos # (Auto) 0.1 K/mm3 (0.0-0.4) 12/16/20 07:06 Baso # (Auto) 0.0 K/mm3 (0.0-0.1) 12/16/20 07:06 Seg Neutrophils % 81.8 % (40.0-70.0) H 12/16/20 07:06 Seg Neutrophils # 12.0 K/mm3 (1.8-7.7) H 12/16/20 07:06 Abs Lymphs (Manual) 1273 cells/uL (850-3900) 12/13/20 08:19 D-Dimer 185.58 ng/mlDDU (0-234) 12/06/20 15:24 ABG pH 7.441 (7.320-7.450) 12/13/20 15:33 POC ABG pCO2 33.7 mmHg (32.0-48.0) 12/13/20 15:33 POC ABG pO2 70.0 mmHg (83-108) L 12/13/20 15:33 POC ABG HCO3 22.4 12/13/20 15:33 ABG O2 Saturation 94.9 (0-100) 12/13/20 15:33 POC ABG Base Excess -1.2 12/13/20 15:33 ABG Hemoglobin 10.4 (12.0-17.5) L 12/13/20 15:33 ABG Oxyhemoglobin 93.9 (94-98) L 12/13/20 15:33 ABG Methemoglobin 0.3 (0.0-1.5) 12/13/20 15:33 ABG Sodium 131.5 mmol/L (136.0-145.0) L 12/13/20 15:33 ABG Potassium 4.0 mmol/L (3.40-4.50) 12/13/20 15:33 ABG Chloride 100.0 mmol/L (98-107) 12/13/20 15:33 ABG Glucose 239 mg/dL (65-95) H 12/13/20 15:33 Carboxyhemoglobin 0.8 (0.5-1.5) 12/13/20 15:33 FiO2 % 40.0 12/13/20 15:33 Sodium 135 mmol/L (137-145) L 12/16/20 07:06 Potassium 4.1 mmol/L (3.6-5.0) 12/16/20 07:06 Chloride 103.2 mmol/L (98-107) 12/16/20 07:06 Carbon Dioxide 21 mmol/L (22-30) L 12/16/20 07:06 Anion Gap 15 mmol/L 12/16/20 07:06 BUN 11 mg/dL (7-17) 12/16/20 07:06 Creatinine 0.8 mg/dL (0.6-1.2) 12/16/20 07:06 Estimated GFR > 60 ml/min 12/16/20 07:06 BUN/Creatinine Ratio 14 % 12/16/20 07:06 Glucose 80 mg/dL (65-100) 12/16/20 07:06 POC Glucose 105 mg/dL (70-105) 12/17/20 07:31 Hemoglobin A1c 8.2 % (4-6) H 12/07/20 02:12 Lactic Acid 1.10 mmol/L (0.7-2.0) 12/06/20 23:55 Calcium 9.1 mg/dL (8.4-10.2) 12/16/20 07:06 Iron 22 ug/dL (37-170) L 12/07/20 07:28 TIBC 341 mcg/dL (250-450) 12/07/20 07:28 % Saturation 6.45 % 12/07/20 07:28 Transferrin 292 mg/dl (192-382) 12/07/20 07:28 Ferritin 40.7 ng/mL (10.0-200.0) 12/06/20 15:24 Total Bilirubin 0.40 mg/dL (0.1-1.2) 12/07/20 02:12 AST 26 units/L (5-40) 12/07/20 02:12 ALT 9 units/L (7-56) 12/07/20 02:12 Alkaline Phosphatase 94 units/L (35-129) 12/07/20 02:12 Lactate Dehydrogenase 273 units/L (91-180) H 12/09/20 13:32 Troponin T < 0.010 ng/mL (0.00-0.029) 12/06/20 14:04 C-Reactive Protein 7.10 mg/dL (0.00-1.30) H 12/06/20 15:24 NT-Pro-B Natriuret Pep 150.7 pg/mL (0-450) 12/09/20 00:43 Total Protein 8.3 g/dL (6.3-8.2) H 12/07/20 02:12 Albumin 3.2 g/dL (3.9-5) L 12/07/20 02:12 Albumin/Globulin Ratio 0.6 % 12/07/20 02:12 Vitamin B12 304.1 pg/mL (211-911) 12/07/20 07:28 RBC Folic Acid 711 ng/mL (>280) 12/07/20 07:28 Procalcitonin < 0.05 ng/mL (<0.15) 12/06/20 15:24 HCG, Qual Negative (Negative) 12/06/20 14:04 Arterial Blood Glucose 239 mg/dL (65-95) H 12/13/20 15:33 Arterial Blood Ionized Calcium 4.7 mg/dL (4.6-5.3) 12/13/20 15:33 Urine Color Yellow (Yellow) 12/07/20 Unknown Urine Turbidity Clear (Clear) 12/07/20 Unknown Urine pH 7.0 (5.0-7.0) 12/07/20 Unknown Ur Specific [place] 1.017 (1.003-1.030) 12/07/20 Unknown Urine Protein <15 mg/dl mg/dL (Negative) 12/07/20 Unknown Urine Glucose (UA) 150 mg/dL (Negative) 12/07/20 Unknown Urine Ketones Neg mg/dL (Negative) 12/07/20 Unknown Urine Blood Neg (Negative) 12/07/20 Unknown Urine Nitrite Neg (Negative) 12/07/20 Unknown Urine Bilirubin Neg (Negative) 12/07/20 Unknown Urine Urobilinogen 2.0 mg/dL (<2.0) 12/07/20 Unknown Ur Leukocyte Esterase Neg (Negative) 12/07/20 Unknown Urine WBC (Auto) < 1.0 /HPF (0.0-6.0) 12/07/20 Unknown Urine RBC (Auto) 1.0 /HPF (0.0-6.0) 12/07/20 Unknown U Epithel Cells (Auto) 6.0 /HPF (0-13.0) 12/07/20 Unknown DELFINO Screen Negative (Negative) 12/09/20 00:43 Lymph Enumerat CD4/CD8 0.02 (0.86-5.00) L 12/13/20 08:19 % CD3 Cells 90 % (57-85) H 12/13/20 08:19 Absolute CD3 Count 1149 cells/uL (840-3060) 12/13/20 08:19 % CD4 Cells 2 % (30-61) L 12/13/20 08:19 Absolute CD4 Count 22 cells/uL (490-1740) L 12/13/20 08:19 % CD8 Cells 88 % (12-42) H 12/13/20 08:19 Absolute CD8 Count 1087 cells/uL (180-1170) 12/13/20 08:19 % CD19 Cells 6 % (6-29) 12/13/20 08:19 Absolute CD19 Count 72 cells/uL (110-660) L 12/13/20 08:19 Coronavirus (PCR) Negative (Negative) 12/06/20 08:46 HIV-1 RNA PCR copies/ml [id number] Copies/mL H 12/13/20 08:19 HIV-1 RNA (PCR) log 5.17 Log cps/mL H 12/13/20 08:19 AFB Identification 12/13/20 Unknown AFB Identification 12/13/20 Unknown Fungal Id Prelim 12/13/20 Unknown Microbiology: Microbiology 12/13/20 08:19 Peripheral/Venous Blood Culture - Preliminary NO GROWTH AFTER 4 DAYS 12/13/20 11:09 Peripheral/Venous Blood Culture - Preliminary NO GROWTH AFTER 72 HOURS 12/13/20 Unknown Bronchial Washings - Right Lower Lobe Respiratory Culture - Final 12/13/20 Unknown Bronchial Washings - Left Lower Lobe Respiratory Culture - Final [place]/IV: Voiding Method Toilet Active Medications - Current Medications Current Medications: Generic Name Dose Route Start Last Admin Trade Name Freq PRN Reason Stop Dose Admin Acetaminophen 650 mg 12/06/20 21:36 Acetaminophen 325 Mg Tab PO Q4H PRN Pain MILD(1-3)/Fever >100.5/RODRIGUES Albuterol/Ipratropium 1 ampul 12/07/20 08:00 12/17/20 08:53 Ipratropium/Albuterol Sulfate 3 Ml Ampul.Neb IH 1 ampul TIDRT DARYA Administration Ascorbic Acid 1,000 mg 12/06/20 22:00 12/17/20 10:36 Ascorbic Acid 500 Mg Tab PO 1,000 mg BID DARYA Administration Cholecalciferol 5,000 unit 12/06/20 22:00 12/17/20 10:37 Cholecalciferol (Vit D3) 5,000 Unit Tab PO 5,000 unit DAILY DARYA Administration Darunavir 800 mg 12/07/20 16:00 12/17/20 10:33 Darunavir 800 Mg Tab PO 800 mg QDAY DARYA Administration Emtricitabine 200 mg 12/07/20 16:00 12/17/20 10:34 Emtricitabine 200 Mg Cap PO 200 mg QDAY DARYA Administration Famotidine 20 mg 12/06/20 22:00 12/17/20 10:35 Famotidine 20 Mg Tab PO 20 mg BID DARYA Administration Fluconazole 200 mg 12/09/20 13:00 12/17/20 10:33 Fluconazole 200 Mg Tab PO 200 mg QDAY DARYA Administration Protocol Guaifenesin 200 mg 12/06/20 23:59 12/17/20 06:18 Guaifenesin 100 Mg/5 Ml Oral Liqd PO 200 mg Q8H PRN Administration Cough Sodium Chloride 1,000 mls @ 100 mls/hr 12/13/20 05:00 12/17/20 08:25 Nacl 0.9% 1000 Ml IV 100 mls/hr DIRECT DARYA Administration Trimethoprim/Sulfamethoxazole 528.125 mls @ 350 mls/hr 12/14/20 10:00 12/17/20 10:23 450 mg/ Dextrose IV Not Given Q8H [facility] Protocol Insulin Glargine 25 units 12/12/20 08:00 12/17/20 09:52 Insulin Glargine 100 Units/Ml SUB-Q Not Given QAMDIAB [facility] Insulin Human Lispro 0 unit 12/09/20 22:00 12/17/20 08:16 Insulin Lispro 100 Unit/Ml SUB-Q Not Given ACHS [facility] Protocol Metformin HCl 500 mg 12/06/20 21:30 12/17/20 08:25 Metformin Xr 500mg Tab PO 500 mg QAMDIAB DARYA Administration Metoclopramide HCl 10 mg 12/06/20 21:36 12/13/20 22:35 Metoclopramide 10 Mg/2 Ml Inj IV 10 mg Q6H PRN Administration Nausea And Vomiting Morphine Sulfate 2 mg 12/12/20 14:28 12/17/20 05:10 Morphine 2 Mg/1 Ml Inj IV 2 mg Q4H PRN Administration Pain, Moderate (4-6) Ondansetron HCl 4 mg 12/06/20 21:36 12/15/20 23:11 Ondansetron 4 Mg/2 Ml Inj IV 4 mg Q8H PRN Administration Nausea And Vomiting Oxycodone/Acetaminophen 2 tab 12/07/20 18:00 12/14/20 21:44 Oxycodone /Acetaminophen 5-325mg Tab PO 2 tab Q6H PRN Administration Pain, Moderate (4-6) Polyethylene Glycol 17 gm 12/11/20 18:05 12/11/20 18:24 Polyethylene Glycol 3350 17 Gm Powder PO 17 gm QDAY PRN Administration Constipation Prednisone 40 mg 12/16/20 10:00 12/17/20 10:36 Prednisone 20 Mg Tab PO 12/20/20 10:01 40 mg QDAY DARYA Administration Prednisone 20 mg 12/21/20 10:00 Prednisone 10 Mg Tab PO 12/31/20 10:01 QDAY DARYA Ritonavir 100 mg 12/07/20 16:00 12/17/20 10:34 Ritonavir 100 Mg Tab PO 100 mg QDAY DARYA Administration Sodium Chloride 10 ml 12/06/20 22:00 12/16/20 21:20 Sodium Chloride 0.9% 10 Ml Flush Syringe IV 10 ml BID DARYA Administration Sodium Chloride 10 ml 12/06/20 21:36 12/17/20 10:44 Sodium Chloride 0.9% 10 Ml Flush Syringe IV 10 ml PRN PRN Administration LINE FLUSH Tenofovir Disoproxil Fumarate 300 mg 12/07/20 16:00 12/17/20 10:33 Tenofovir 300 Mg Tab PO 300 mg QDAY DARYA Administration Tramadol HCl 50 mg 12/06/20 21:21 Tramadol 50 Mg Tab PO Q8H PRN PAIN (4-6) Zinc Sulfate 220 mg 12/17/20 10:00 12/17/20 10:44 Zinc Sulfate 220 Mg Cap PO 220 mg DAILY DARYA Administration Zolpidem Tartrate 5 mg 12/07/20 22:00 12/16/20 21:51 Zolpidem 5 Mg Tab PO 5 mg QHS PRN Administration Sleep Nutrition/Malnutrition Assess - Dietary Evaluation Nutrition/Malnutrition Findings: Nutrition Notes Start: 12/07/20 15:58 Freq: Status: Active Protocol: Document 12/15/20 11:46 LM (Rec: 12/15/20 12:00 LM [id number]) Nutrition Notes Initial or Follow up Reassessment Current Diagnosis Diabetes,Sepsis,Heart Failure, Respiratory Failure Other Pertinent Diagnosis pneu Current Diet Consistent CHO, vegetarian Labs/Tests POC 249 Pertinent Medications Metformin Humalog Lantus NS at 100ml/hr Height 5 ft 7 in Weight 87 kg [place] Body Weight (kg) 61.36 BMI 30.0 Weight Status Obese Subjective/Other Information Pt stated she ate 75% of breakfast and drank Glucerna. Pt stated she would like broth or soup due to having stomach ache. Percent of energy/protein needs met: 100%/100% (PO and ONS) Burn Absent Trauma Absent Current % PO Good (75-100%) Minimum of two criteria No physical signs of malnutrition #1 Nutrition Diagnosis Inadequate oral intake As Evidenced by Signs and Symptoms Pt eating 75% Diagnosis Progress(for reassessment Improved documentation) Is patient on ventilator? No Is Patient Ambulatory and/or Out of Bed No REE-([facility]-confined to bed) 1925.376 Kcal/Kg value to use for calculation 19 Approximate Energy Requirements Using 1653 kcal/Kg Additional Notes Protein: (0.8-1g/kg AdjBW: 75kg) 60-75g Fluid: 1ml/kcal or per MD Nutrition Intervention Change Diet Order: Continue Add Supplement/Snack (indicate name/kcal Glucerna BID /protein ) Provides kCal: 440 Provides Protein (gm) 20 Goal #1 Meet at least 75% of protein and energy needs Follow-Up By: 12/21/20 Additional Comments F/U for stable PO intakes, ONS
[2020-12-17] MEDS: NYSTATIN 500,000 UNIT/5 ML ORAL LIQD PO SCH ×2 (15:17→22:25)
--- NOTE | 2020-12-17 17:14 | Progress Note ---
Assessment and Plan Severe Sepsis Acute hypoxic respiratory failure Bilateral pneumonia (PJP Pneumonia) CHF PUI COVID-19 HIV DM II Anemia - continue to watch closely - transfer to step down unit - continue therapy for severe PJP pneumonia started (on IV bactrim) - follow other bronch results including special stains (5-7 days) - continue care as below otherwise; - continue to wean supplemental oxygen to keep O2 sats > 90% - prn NIV for increased work of breathing (will hold on scheduling re: risk of pneumothoraces with PJP pneumonia) - prn bronchodilators (HILDA) with pulm hygiene per RT - continue systemic steroids - continue to avoid nephrotoxins, renally dose all medications - continue accuchecks with glycemic control per SSI (While critically ill target blood glucose of 140-180 mg/dL; avoid hypoglycemia) - aspiration precautions - complete AB's per ID rec's - Maintenance of sleep-wake cycle, avoid delirium - mobility protocols to prevent pressure ulcers - PT/OT as tolerated - Wound care per RN/WCT - continue accuchecks with glycemic control per SSI for target blood glucose < 180 mg/dL - tobacco abstinence strongly counseled at the bedside - home oxygen evaluation at discharge - prn analgesia per pain score - GI & VTE prophylaxis - Flu & pneumovax per protocol - Pulmonary out patient follow up for PFTs and optimization of respiratory status - continue other care per attending / other consultants - discharge planning ongoing concurrently .... Re-evaluate in am & prn CONDITION: CRITICAL PROGNOSIS: GUARDED CODE STATUS: FULL CODE The high probability of a clinically significant, sudden or life-threatening deterioration of the [respiratory, cardiovascular & neurologic] system(s) required my full and direct attention, intervention and personal management. The aggregate critical care time was [34] minutes without overlap. Time includes spent on; [x] Data Review and interpretation [x] Patient assessment and monitoring of vital signs [x] Documentation [x] Medication orders and management Subjective Date of service: 12/17/20 Principal diagnosis: Sepsis; Ac hypoxemic resp failure; PJP Pneumonia; CHF; PUI COVID-19; HIV+ve Interval history: Patient is seen today for: Sepsis; Acute hypoxemic respiratory failure; Bilateral pneumonia (PJP Pneumonia); CHF; PUI COVID-19; HIV +ve; DM II Seen and examined at bedside; 24hour events reviewed; nursing and respiratory ca re staff consulted; no adverse overnight events reported to me; resting peacefully in bed; remains on supplemental oxygen at 70% FiO2 with some room to wean; work of breathing and dyspnea was increased today though Objective Vital Signs - 12hr 12/17/20 12/17/20 12/17/20 08:00 10:00 13:28 Pulse Rate [ 124 H Bilateral] Respiratory 18 Rate [Bilateral ] O2 Sat by Pulse 94 100 97 Oximetry 12/17/20 13:29 Pulse Rate [ 106 H Bilateral] Respiratory 19 Rate [Bilateral ] O2 Sat by Pulse Oximetry Constitutional: alert, appears uncomfortable, other (young female with mildly increased respiratory effort at rest ) Eyes: non-icteric ENT: oropharynx moist, other (oral candidiasis) Neck: supple, no lymphadenopathy, no JVD Effort: mildly labored Ascultation: Bilateral: rales Percussion: Bilateral: not dull Cardiovascular: regular rate and rhythm, other (S1,S2) Gastrointestinal: normoactive bowel sounds, soft, non-tender, non-distended Integumentary: normal Extremities: no cyanosis, no edema, pulses normal, no ischemia or petechiae Neurologic: normal mental status, non-focal exam, pupils equal and round, CN II- XII normal, motor strength normal and (but wekness) Psychiatric: mood appropriate, anxious CBC and BMP: 12/16/20 07:06 12/19/20 08:34 ABG, PT/INR, D-dimer: ABG ABG pH 7.441 (7.320-7.450) 12/13/20 15:33 POC ABG pCO2 33.7 mmHg (32.0-48.0) 12/13/20 15:33 POC ABG pO2 70.0 mmHg (83-108) L 12/13/20 15:33 POC ABG HCO3 22.4 12/13/20 15:33 ABG O2 Saturation 94.9 (0-100) 12/13/20 15:33 PT/INR, D-dimer D-Dimer 185.58 ng/mlDDU (0-234) 12/06/20 15:24 Abnormal lab findings: Abnormal Labs 12/06/20 12/06/20 12/06/20 14:04 14:04 15:24 WBC RBC 3.57 L Hgb 8.8 L Hct 27.3 L MCV 76 L MCH 25 L Plt Count Lymph % (Auto) [place] % (Auto) 8.5 H [place] # (Auto) Seg Neutrophils % Seg Neutrophils # POC ABG pO2 ABG Hemoglobin ABG Oxyhemoglobin ABG Sodium ABG Glucose Carboxyhemoglobin Sodium 136 L Carbon Dioxide Glucose 149 H POC Glucose Hemoglobin A1c Calcium Iron Lactate Dehydrogenase 418 H C-Reactive Protein 7.10 H Total Protein 8.6 H Albumin 2.9 L Arterial Blood Glucose Lymph Enumerat CD4/CD8 % CD3 Cells % CD4 Cells Absolute CD4 Count % CD8 Cells Absolute CD19 Count HIV-1 RNA PCR copies/ml HIV-1 RNA (PCR) log 12/07/20 12/07/20 12/07/20 02:12 02:12 02:12 WBC RBC 3.61 L Hgb 9.2 L Hct 27.8 L MCV 77 L MCH 26 L Plt Count Lymph % (Auto) [place] % (Auto) 9.4 H [place] # (Auto) Seg Neutrophils % Seg Neutrophils # POC ABG pO2 ABG Hemoglobin ABG Oxyhemoglobin ABG Sodium ABG Glucose Carboxyhemoglobin Sodium Carbon Dioxide Glucose 123 H POC Glucose Hemoglobin A1c 8.2 H Calcium 8.3 L Iron Lactate Dehydrogenase C-Reactive Protein Total Protein 8.3 H Albumin 3.2 L Arterial Blood Glucose Lymph Enumerat CD4/CD8 % CD3 Cells % CD4 Cells Absolute CD4 Count % CD8 Cells Absolute CD19 Count HIV-1 RNA PCR copies/ml HIV-1 RNA (PCR) log 12/07/20 12/07/20 12/07/20 07:28 07:48 11:48 WBC RBC Hgb Hct MCV MCH Plt Count Lymph % (Auto) [place] % (Auto) [place] # (Auto) Seg Neutrophils % Seg Neutrophils # POC ABG pO2 ABG Hemoglobin ABG Oxyhemoglobin ABG Sodium ABG Glucose Carboxyhemoglobin Sodium Carbon Dioxide Glucose POC Glucose 290 H 217 H Hemoglobin A1c Calcium Iron 22 L Lactate Dehydrogenase C-Reactive Protein Total Protein Albumin Arterial Blood Glucose Lymph Enumerat CD4/CD8 % CD3 Cells % CD4 Cells Absolute CD4 Count % CD8 Cells Absolute CD19 Count HIV-1 RNA PCR copies/ml HIV-1 RNA (PCR) log 12/07/20 12/07/20 12/08/20 16:46 22:36 08:50 WBC RBC Hgb Hct MCV MCH Plt Count Lymph % (Auto) [place] % (Auto) [place] # (Auto) Seg Neutrophils % Seg Neutrophils # POC ABG pO2 ABG Hemoglobin ABG Oxyhemoglobin ABG Sodium ABG Glucose Carboxyhemoglobin Sodium Carbon Dioxide Glucose POC Glucose 203 H 189 H 293 H Hemoglobin A1c Calcium Iron Lactate Dehydrogenase C-Reactive Protein Total Protein Albumin Arterial Blood Glucose Lymph Enumerat CD4/CD8 % CD3 Cells % CD4 Cells Absolute CD4 Count % CD8 Cells Absolute CD19 Count HIV-1 RNA PCR copies/ml HIV-1 RNA (PCR) log 12/08/20 12/08/20 12/08/20 11:35 16:18 16:39 WBC RBC Hgb Hct MCV MCH Plt Count Lymph % (Auto) [place] % (Auto) [place] # (Auto) Seg Neutrophils % Seg Neutrophils # POC ABG pO2 ABG Hemoglobin 9.4 L ABG Oxyhemoglobin ABG Sodium 132.7 L ABG Glucose 303 H Carboxyhemoglobin 0.4 L Sodium Carbon Dioxide Glucose POC Glucose 360 H 288 H Hemoglobin A1c Calcium Iron Lactate Dehydrogenase C-Reactive Protein Total Protein Albumin Arterial Blood Glucose 303 H Lymph Enumerat CD4/CD8 % CD3 Cells % CD4 Cells Absolute CD4 Count % CD8 Cells Absolute CD19 Count HIV-1 RNA PCR copies/ml HIV-1 RNA (PCR) log 12/08/20 12/09/20 12/09/20 21:08 13:32 21:43 WBC RBC Hgb Hct MCV MCH Plt Count Lymph % (Auto) [place] % (Auto) [place] # (Auto) Seg Neutrophils % Seg Neutrophils # POC ABG pO2 ABG Hemoglobin ABG Oxyhemoglobin ABG Sodium ABG Glucose Carboxyhemoglobin Sodium Carbon Dioxide Glucose POC Glucose 300 H 394 H Hemoglobin A1c Calcium Iron Lactate Dehydrogenase 273 H C-Reactive Protein Total Protein Albumin Arterial Blood Glucose Lymph Enumerat CD4/CD8 % CD3 Cells % CD4 Cells Absolute CD4 Count % CD8 Cells Absolute CD19 Count HIV-1 RNA PCR copies/ml HIV-1 RNA (PCR) log 12/10/20 12/10/20 12/10/20 07:37 11:04 15:37 WBC RBC Hgb Hct MCV MCH Plt Count Lymph % (Auto) [place] % (Auto) [place] # (Auto) Seg Neutrophils % Seg Neutrophils # POC ABG pO2 ABG Hemoglobin ABG Oxyhemoglobin ABG Sodium ABG Glucose Carboxyhemoglobin Sodium Carbon Dioxide Glucose POC Glucose 431 H 386 H 339 H Hemoglobin A1c Calcium Iron Lactate Dehydrogenase C-Reactive Protein Total Protein Albumin Arterial Blood Glucose Lymph Enumerat CD4/CD8 % CD3 Cells % CD4 Cells Absolute CD4 Count % CD8 Cells Absolute CD19 Count HIV-1 RNA PCR copies/ml HIV-1 RNA (PCR) log 12/10/20 12/11/20 12/11/20 21:09 07:24 10:56 WBC RBC Hgb Hct MCV MCH Plt Count Lymph % (Auto) [place] % (Auto) [place] # (Auto) Seg Neutrophils % Seg Neutrophils # POC ABG pO2 ABG Hemoglobin ABG Oxyhemoglobin ABG Sodium ABG Glucose Carboxyhemoglobin Sodium Carbon Dioxide Glucose POC Glucose 412 H 399 H 431 H Hemoglobin A1c Calcium Iron Lactate Dehydrogenase C-Reactive Protein Total Protein Albumin Arterial Blood Glucose Lymph Enumerat CD4/CD8 % CD3 Cells % CD4 Cells Absolute CD4 Count % CD8 Cells Absolute CD19 Count HIV-1 RNA PCR copies/ml HIV-1 RNA (PCR) log 12/11/20 12/11/20 12/12/20 16:26 22:31 00:53 WBC RBC Hgb Hct MCV MCH Plt Count Lymph % (Auto) [place] % (Auto) [place] # (Auto) Seg Neutrophils % Seg Neutrophils # POC ABG pO2 ABG Hemoglobin ABG Oxyhemoglobin ABG Sodium ABG Glucose Carboxyhemoglobin Sodium Carbon Dioxide Glucose POC Glucose 320 H 361 H 255 H Hemoglobin A1c Calcium Iron Lactate Dehydrogenase C-Reactive Protein Total Protein Albumin Arterial Blood Glucose Lymph Enumerat CD4/CD8 % CD3 Cells % CD4 Cells Absolute CD4 Count % CD8 Cells Absolute CD19 Count HIV-1 RNA PCR copies/ml HIV-1 RNA (PCR) log 12/12/20 12/12/20 12/12/20 07:16 10:47 16:40 WBC RBC Hgb Hct MCV MCH Plt Count Lymph % (Auto) [place] % (Auto) [place] # (Auto) Seg Neutrophils % Seg Neutrophils # POC ABG pO2 ABG Hemoglobin ABG Oxyhemoglobin ABG Sodium ABG Glucose Carboxyhemoglobin Sodium Carbon Dioxide Glucose POC Glucose 171 H 156 H 146 H Hemoglobin A1c Calcium Iron Lactate Dehydrogenase C-Reactive Protein Total Protein Albumin Arterial Blood Glucose Lymph Enumerat CD4/CD8 % CD3 Cells % CD4 Cells Absolute CD4 Count % CD8 Cells Absolute CD19 Count HIV-1 RNA PCR copies/ml HIV-1 RNA (PCR) log 12/12/20 12/13/20 12/13/20 22:04 07:29 08:19 WBC RBC Hgb Hct MCV MCH Plt Count Lymph % (Auto) [place] % (Auto) [place] # (Auto) Seg Neutrophils % Seg Neutrophils # POC ABG pO2 ABG Hemoglobin ABG Oxyhemoglobin ABG Sodium ABG Glucose Carboxyhemoglobin Sodium Carbon Dioxide Glucose POC Glucose 214 H 211 H Hemoglobin A1c Calcium Iron Lactate Dehydrogenase C-Reactive Protein Total Protein Albumin Arterial Blood Glucose Lymph Enumerat CD4/CD8 0.02 L % CD3 Cells 90 H % CD4 Cells 2 L Absolute CD4 Count 22 L % CD8 Cells 88 H Absolute CD19 Count 72 L HIV-1 RNA PCR copies/ml HIV-1 RNA (PCR) log 12/13/20 12/13/20 12/13/20 08:19 11:09 11:23 WBC 13.3 H RBC Hgb 9.3 L Hct 29.6 L MCV 76 L MCH 24 L Plt Count 653 H Lymph % (Auto) [place] % (Auto) [place] # (Auto) 0.9 H Seg Neutrophils % 74.8 H Seg Neutrophils # 9.9 H POC ABG pO2 ABG Hemoglobin ABG Oxyhemoglobin ABG Sodium ABG Glucose Carboxyhemoglobin Sodium Carbon Dioxide Glucose POC Glucose 255 H Hemoglobin A1c Calcium Iron Lactate Dehydrogenase C-Reactive Protein Total Protein Albumin Arterial Blood Glucose Lymph Enumerat CD4/CD8 % CD3 Cells % CD4 Cells Absolute CD4 Count % CD8 Cells Absolute CD19 Count HIV-1 RNA PCR copies/ml 260158 H HIV-1 RNA (PCR) log 5.17 H 12/13/20 12/13/20 12/13/20 15:33 16:00 20:59 WBC RBC Hgb Hct MCV MCH Plt Count Lymph % (Auto) [place] % (Auto) [place] # (Auto) Seg Neutrophils % Seg Neutrophils # POC ABG pO2 70.0 L ABG Hemoglobin 10.4 L ABG Oxyhemoglobin 93.9 L ABG Sodium 131.5 L ABG Glucose 239 H Carboxyhemoglobin Sodium Carbon Dioxide Glucose POC Glucose 225 H 267 H Hemoglobin A1c Calcium Iron Lactate Dehydrogenase C-Reactive Protein Total Protein Albumin Arterial Blood Glucose 239 H Lymph Enumerat CD4/CD8 % CD3 Cells % CD4 Cells Absolute CD4 Count % CD8 Cells Absolute CD19 Count HIV-1 RNA PCR copies/ml HIV-1 RNA (PCR) log 12/14/20 12/14/20 12/14/20 07:15 07:15 07:41 WBC 11.5 H RBC 3.54 L Hgb 8.5 L Hct 26.5 L MCV 75 L MCH 24 L Plt Count 513 H Lymph % (Auto) [place] % (Auto) [place] # (Auto) Seg Neutrophils % Seg Neutrophils # POC ABG pO2 ABG Hemoglobin ABG Oxyhemoglobin ABG Sodium ABG Glucose Carboxyhemoglobin Sodium 134 L Carbon Dioxide Glucose 154 H POC Glucose 162 H Hemoglobin A1c Calcium Iron Lactate Dehydrogenase C-Reactive Protein Total Protein Albumin Arterial Blood Glucose Lymph Enumerat CD4/CD8 % CD3 Cells % CD4 Cells Absolute CD4 Count % CD8 Cells Absolute CD19 Count HIV-1 RNA PCR copies/ml HIV-1 RNA (PCR) log 12/14/20 12/14/20 12/14/20 11:58 17:16 21:07 WBC RBC Hgb Hct MCV MCH Plt Count Lymph % (Auto) [place] % (Auto) [place] # (Auto) Seg Neutrophils % Seg Neutrophils # POC ABG pO2 ABG Hemoglobin ABG Oxyhemoglobin ABG Sodium ABG Glucose Carboxyhemoglobin Sodium Carbon Dioxide Glucose POC Glucose 260 H 314 H 402 H Hemoglobin A1c Calcium Iron Lactate Dehydrogenase C-Reactive Protein Total Protein Albumin Arterial Blood Glucose Lymph Enumerat CD4/CD8 % CD3 Cells % CD4 Cells Absolute CD4 Count % CD8 Cells Absolute CD19 Count HIV-1 RNA PCR copies/ml HIV-1 RNA (PCR) log 12/15/20 12/15/20 12/15/20 07:33 11:13 17:09 WBC RBC Hgb Hct MCV MCH Plt Count Lymph % (Auto) [place] % (Auto) [place] # (Auto) Seg Neutrophils % Seg Neutrophils # POC ABG pO2 ABG Hemoglobin ABG Oxyhemoglobin ABG Sodium ABG Glucose Carboxyhemoglobin Sodium Carbon Dioxide Glucose POC Glucose 249 H 344 H 251 H Hemoglobin A1c Calcium Iron Lactate Dehydrogenase C-Reactive Protein Total Protein Albumin Arterial Blood Glucose Lymph Enumerat CD4/CD8 % CD3 Cells % CD4 Cells Absolute CD4 Count % CD8 Cells Absolute CD19 Count HIV-1 RNA PCR copies/ml HIV-1 RNA (PCR) log 12/15/20 12/16/20 12/16/20 21:34 07:06 07:06 WBC 14.7 H RBC 3.50 L Hgb 8.5 L Hct 26.3 L MCV 75 L MCH 24 L Plt Count 540 H Lymph % (Auto) 10.3 L [place] % (Auto) [place] # (Auto) 1.1 H Seg Neutrophils % 81.8 H Seg Neutrophils # 12.0 H POC ABG pO2 ABG Hemoglobin ABG Oxyhemoglobin ABG Sodium ABG Glucose Carboxyhemoglobin Sodium 135 L Carbon Dioxide 21 L Glucose POC Glucose 294 H Hemoglobin A1c Calcium Iron Lactate Dehydrogenase C-Reactive Protein Total Protein Albumin Arterial Blood Glucose Lymph Enumerat CD4/CD8 % CD3 Cells % CD4 Cells Absolute CD4 Count % CD8 Cells Absolute CD19 Count HIV-1 RNA PCR copies/ml HIV-1 RNA (PCR) log 12/16/20 12/16/20 12/16/20 11:16 16:34 22:05 WBC RBC Hgb Hct MCV MCH Plt Count Lymph % (Auto) [place] % (Auto) [place] # (Auto) Seg Neutrophils % Seg Neutrophils # POC ABG pO2 ABG Hemoglobin ABG Oxyhemoglobin ABG Sodium ABG Glucose Carboxyhemoglobin Sodium Carbon Dioxide Glucose POC Glucose 138 H 354 H 414 H Hemoglobin A1c Calcium Iron Lactate Dehydrogenase C-Reactive Protein Total Protein Albumin Arterial Blood Glucose Lymph Enumerat CD4/CD8 % CD3 Cells % CD4 Cells Absolute CD4 Count % CD8 Cells Absolute CD19 Count HIV-1 RNA PCR copies/ml HIV-1 RNA (PCR) log 12/17/20 11:05 WBC RBC Hgb Hct MCV MCH Plt Count Lymph % (Auto) [place] % (Auto) [place] # (Auto) Seg Neutrophils % Seg Neutrophils # POC ABG pO2 ABG Hemoglobin ABG Oxyhemoglobin ABG Sodium ABG Glucose Carboxyhemoglobin Sodium Carbon Dioxide Glucose POC Glucose 149 H Hemoglobin A1c Calcium Iron Lactate Dehydrogenase C-Reactive Protein Total Protein Albumin Arterial Blood Glucose Lymph Enumerat CD4/CD8 % CD3 Cells % CD4 Cells Absolute CD4 Count % CD8 Cells Absolute CD19 Count HIV-1 RNA PCR copies/ml HIV-1 RNA (PCR) log Allied health notes reviewed: nursing
[2020-12-17] MEDS: METOCLOPRAMIDE 10 MG/2 ML INJ IV PRN (18:10)
[2020-12-17] MEDS: ONDANSETRON 4 MG/2 ML INJ IV PRN (18:10)
[2020-12-17] MEDS: oxyCODONE /ACETAMINOPHEN 5-325MG TAB PO PRN (19:56)
[2020-12-18] MEDS: METOCLOPRAMIDE 10 MG/2 ML INJ IV PRN ×3 (01:51→17:12)
[2020-12-18] MEDS: ONDANSETRON 4 MG/2 ML INJ IV PRN ×3 (01:51→17:12)
[2020-12-18] MEDS: SODIUM CHLORIDE 0.9% 1000 ML 1,000 ML IV SCH ×3 (01:53→23:04)
[2020-12-18] MEDS: WATER IV SCH ×3 (02:15→17:11)
[2020-12-18] MEDS: SMX IV SCH ×3 (02:15→17:11)
[2020-12-18] MEDS: TMP IV SCH ×3 (02:15→17:11)
[2020-12-18] MEDS: DEXTROSE 5% IV SCH ×3 (02:15→17:11)
[2020-12-18] MEDS: IPRATROPIUM/ALBUTEROL SULFATE 3 ML AMPUL.NEB IH SCH ×3 (07:37→20:17)
[2020-12-18] MEDS: INSULIN GLARGINE 100 UNITS/ML SUB-Q SCH (08:37)
[2020-12-18] MEDS: metFORMIN XR 500MG TAB PO SCH (08:37)
[2020-12-18] MEDS: MORPHINE 2 MG/1 ML INJ IV PRN (08:38)
[2020-12-18] MEDS: INSULIN LISPRO 100 UNIT/ML SUB-Q SCH ×4 (08:38→22:12)
[2020-12-18] MEDS: NYSTATIN 500,000 UNIT/5 ML ORAL LIQD PO SCH ×3 (09:30→20:23)
[2020-12-18] MEDS: FLUCONAZOLE 200 MG TAB PO SCH (10:22)
[2020-12-18] MEDS: ZINC SULFATE 220 MG CAP PO SCH (10:22)
[2020-12-18] MEDS: CHOLECALCIFEROL (VIT D3) 5,000 UNIT TAB PO SCH (10:22)
[2020-12-18] MEDS: predniSONE 20 MG TAB PO SCH (10:23)
[2020-12-18] MEDS: DARUNAVIR 800 MG TAB PO SCH (10:23)
[2020-12-18] MEDS: ASCORBIC ACID 500 MG TAB PO SCH ×2 (10:23→22:14)
[2020-12-18] MEDS: TENOFOVIR 300 MG TAB PO SCH (10:23)
[2020-12-18] MEDS: EMTRICITABINE 200 MG CAP PO SCH (10:23)
[2020-12-18] MEDS: RITONAVIR 100 MG TAB PO SCH (10:24)
[2020-12-18] MEDS: FAMOTIDINE 20 MG TAB PO SCH ×2 (10:25→22:13)
--- NOTE | 2020-12-18 12:07 | Progress Note ---
Assessment and Plan Cultures: Blood culture 12/06/2020 no growth 12/06/2020 urine culture: Usual skin korin 12/09/2020 1,3 [id number]: >500, strongly positive. 12/13/2020 blood culture: no growth 12/13/2020 BAL washings culture: Usual respiratory korin 12/13/2020 HIV RNA PCR: 148,000 12/13/2020 CD4: 22, (2%) A/P: 35 yo F PMHx HIV, Dm2, CHF admitted with SOB, myalgias. #Bilateral PNA: Status post bronchoscopy 12/12/2020, no gross endobronchial lesions were seen. Right lower lobe lung biopsy showed findings consistent with pneumocystis. BAL cytology also showed pneumocystis. As per discussion with patient, she reports good compliance with her HIV medications. She used to be undetectable. She also admits to vaping twice daily since August 2020. Vaping induced lung injury is another possibility. #Acute hypoxic respiratory failure: secondary to above. 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 Has outpatient ID doc. But evidence of thrush and PJP pneumonia, and CD4 is consistent with AIDS. Patient continues to state that she has been compliant with her meds but often she vomits the meds. HIV-1 genotype will help clarify whether she is resistant to the meds or noncompliant. #Oral candidiasis Recs: -continue IV Bactrim with adjunctive steroids, total treatment for 21 days -Continue fluconazole -While HIV genotype is pending, current ART held Ashly Lindsay MD, FACP [facility] ([facility] O: [phone] F: [phone] Subjective Date of service: 12/18/20 Principal diagnosis: Sepsis; Ac hypoxemic resp failure; PJP Pneumonia; CHF; PUI COVID-19; HIV+ve Interval history: Moved to [facility] due to respiratory failure, on high flow nasal cannula. Afebrile. Patient continues to state that she has been compliant with her meds but often she vomits the meds. I informed her the HIV viral load and CD4 count. Objective - Exam Narrative Exam: Physical Exam: Constitutional: Alert, cooperative. No acute distress Head, Ears, Nose: Normocephalic, atraumatic. External ears, nose normal Eyes: Conjunctivae/corneas clear. No icterus. No ptosis. Neck: Supple, no meningeal signs Oral: Thrush + Cardiovascular: S1, S2 normal. Respiratory: Bilateral crackles GI: Soft, non-tender; bowel sounds normal. No peritoneal signs Musculoskeletal: No pedal edema, no cyanosis. Skin: No rash or abscess Hem/Lymphatic: No palpable cervical or supraclavicular nodes. No lymphangitis Psych: Mood ok. Affect normal Neurological: Awake, alert, oriented. No gross abnormality - Constitutional Vitals: Vital Signs Temp Pulse Resp BP Pulse Ox 98.8 F 112 H 24 114/76 95 12/18/20 08:00 12/18/20 07:37 12/18/20 07:37 12/18/20 06:00 12/18/20 07:37 Temperature -Last 24 Hours Temperature 98.8 F Temperature 98.8 F Temperature 98.2 F Temperature 98.4 F - Labs CBC & Chem 7: 12/16/20 07:06 12/16/20 07:06 Labs: Abnormal lab results 12/17/20 12/17/20 12/18/20 Range/Units 17:36 21:41 07:10 POC Glucose 350 H 434 H 222 H (70-105) mg/dL 12/18/20 Range/Units 11:13 POC Glucose 247 H (70-105) mg/dL
--- NOTE | 2020-12-18 13:44 | Progress Note ---
Assessment and Plan Patient alert, awake. Sitting by the side of the bed.Patient is vapotherm, FIO2 50% and O2 saturation 96%. Says shortness of breath getting better. Patient afebrile. Has leukocytosis. Patient has CTA of chest 12/06/20 reported No PE. Worsening bilateral ground glass opacities. Paiient Undergone bronchoscopy . Bronchoscopy specimen results positive for Pneumocystis. Chest xray done 12/13/20 reported improvement in appearence of chest compare to previous chest xray. Patient is on Prednisone, bactrim,Fluconazole. albuterol/atrovent aerosol treatments, Famotidine. Patient was seen [facility]. I spent criritical care time of 35 minutes fir reviewing the chart, examine the patient, review lab results and xrays, talking to the nursing staff and respiratory therapy and work out plan of treatment in this critically ill patient. - Patient Problems (1) Bilateral pneumonia Current Visit: Yes Status: Acute Plan to address problem: Bronchoscopy specimen reported positive for pneumocystis. Patient is on bactrim DS and Fluconazole. on Vapotherm, FIO2 50%. (2) History of HIV or AIDS Current Visit: Yes Status: Acute Plan to address problem: Management as per infectious diseases. (3) Person under investigation for COVID-19 Current Visit: Yes Status: Acute Plan to address problem: Patient [place] virus PCR negative. 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 (5) Atrial fibrillation with RVR Current Visit: No Status: Acute Plan to address problem: Management as per cardiology. (6) CHF (congestive heart failure) Current Visit: No Status: Chronic Qualifiers: Heart failure type: combined systolic and diastolic Plan to address problem: Management as per cardiology. Subjective Date of service: 12/18/20 Principal diagnosis: Sepsis; Ac hypoxemic resp failure; PJP Pneumonia; CHF; PUI COVID-19; HIV+ve Interval history: Patient alert, awake. Sitting by the side of the bed.Patient is vapotherm, FIO2 50% and O2 saturation 96%. Says shortness of breath getting better. Patient afebrile. Has leukocytosis. Patient has CTA of chest 12/06/20 reported No PE. Worsening bilateral ground glass opacities. Paiient Undergone bronchoscopy . Bronchoscopy specimen results positive for Pneumocystis. Chest xray done 12/13/20 reported improvement in appearence of chest compare to previous chest xray. Patient is on Prednisone, bactrim,Fluconazole. albuterol/atrovent aerosol treatments, Famotidine. Objective Vital Signs - 12hr 12/18/20 12/18/20 12/18/20 02:00 03:00 03:56 Temperature 98.8 F Pulse Rate 87 86 Pulse Rate [ From Monitor] Pulse Rate [ Posterior Bilateral Throughout] Respiratory 32 H 24 Rate Respiratory Rate [Posterior Bilateral Throughout] Blood Pressure 102/67 110/66 O2 Sat by Pulse 92 Oximetry 12/18/20 12/18/20 12/18/20 04:00 05:00 05:28 Temperature Pulse Rate 77 81 Pulse Rate [ 81 From Monitor] Pulse Rate [ Posterior Bilateral Throughout] Respiratory 32 H 27 H Rate Respiratory Rate [Posterior Bilateral Throughout] Blood Pressure 110/76 109/64 O2 Sat by Pulse 96 94 94 Oximetry 12/18/20 12/18/20 12/18/20 06:00 07:00 07:37 Temperature Pulse Rate 80 92 H Pulse Rate [ From Monitor] Pulse Rate [ 112 H Posterior Bilateral Throughout] Respiratory 28 H 29 H Rate Respiratory 24 Rate [Posterior Bilateral Throughout] Blood Pressure 114/76 106/70 O2 Sat by Pulse 96 100 95 Oximetry 12/18/20 12/18/20 12/18/20 08:00 09:00 10:00 Temperature 98.8 F Pulse Rate 112 H 114 H 121 H Pulse Rate [ From Monitor] Pulse Rate [ Posterior Bilateral Throughout] Respiratory 42 H 21 34 H Rate Respiratory Rate [Posterior Bilateral Throughout] Blood Pressure 106/70 131/79 135/78 O2 Sat by Pulse 87 93 95 Oximetry 12/18/20 12/18/20 12/18/20 11:00 12:00 13:00 Temperature Pulse Rate 101 H 102 H 122 H Pulse Rate [ From Monitor] Pulse Rate [ Posterior Bilateral Throughout] Respiratory 32 H 28 H 22 Rate Respiratory Rate [Posterior Bilateral Throughout] Blood Pressure 135/78 118/73 118/73 O2 Sat by Pulse 95 95 80 L Oximetry Constitutional: no acute distress, alert, other (young female with mildly increased respiratory effort at rest ) Eyes: non-icteric ENT: oropharynx moist, other (oral candidiasis) Neck: supple, no lymphadenopathy, no JVD Effort: mildly labored Ascultation: Bilateral: diminished breath sounds, rales (faint in bases), rhonchi Percussion: Bilateral: not dull Cardiovascular: regular rate and rhythm, other (S1,S2) Gastrointestinal: normoactive bowel sounds, soft, non-tender, non-distended Integumentary: normal Extremities: no cyanosis, no edema, pulses normal, no ischemia or petechiae Neurologic: normal mental status, non-focal exam, pupils equal and round, CN II- XII normal, motor strength normal and (but wekness) Psychiatric: mood appropriate, affect normal CBC and BMP: 12/16/20 07:06 12/16/20 07:06 ABG, PT/INR, D-dimer: ABG ABG pH 7.441 (7.320-7.450) 12/13/20 15:33 POC ABG pCO2 33.7 mmHg (32.0-48.0) 12/13/20 15:33 POC ABG pO2 70.0 mmHg (83-108) L 12/13/20 15:33 POC ABG HCO3 22.4 12/13/20 15:33 ABG O2 Saturation 94.9 (0-100) 12/13/20 15:33 PT/INR, D-dimer D-Dimer 185.58 ng/mlDDU (0-234) 12/06/20 15:24 Abnormal lab findings: Abnormal Labs 12/06/20 12/06/20 12/06/20 14:04 14:04 15:24 WBC RBC 3.57 L Hgb 8.8 L Hct 27.3 L MCV 76 L MCH 25 L Plt Count Lymph % (Auto) [place] % (Auto) 8.5 H [place] # (Auto) Seg Neutrophils % Seg Neutrophils # POC ABG pO2 ABG Hemoglobin ABG Oxyhemoglobin ABG Sodium ABG Glucose Carboxyhemoglobin Sodium 136 L Carbon Dioxide Glucose 149 H POC Glucose Hemoglobin A1c Calcium Iron Lactate Dehydrogenase 418 H C-Reactive Protein 7.10 H Total Protein 8.6 H Albumin 2.9 L Arterial Blood Glucose Lymph Enumerat CD4/CD8 % CD3 Cells % CD4 Cells Absolute CD4 Count % CD8 Cells Absolute CD19 Count HIV-1 RNA PCR copies/ml HIV-1 RNA (PCR) log 12/07/20 12/07/20 12/07/20 02:12 02:12 02:12 WBC RBC 3.61 L Hgb 9.2 L Hct 27.8 L MCV 77 L MCH 26 L Plt Count Lymph % (Auto) [place] % (Auto) 9.4 H [place] # (Auto) Seg Neutrophils % Seg Neutrophils # POC ABG pO2 ABG Hemoglobin ABG Oxyhemoglobin ABG Sodium ABG Glucose Carboxyhemoglobin Sodium Carbon Dioxide Glucose 123 H POC Glucose Hemoglobin A1c 8.2 H Calcium 8.3 L Iron Lactate Dehydrogenase C-Reactive Protein Total Protein 8.3 H Albumin 3.2 L Arterial Blood Glucose Lymph Enumerat CD4/CD8 % CD3 Cells % CD4 Cells Absolute CD4 Count % CD8 Cells Absolute CD19 Count HIV-1 RNA PCR copies/ml HIV-1 RNA (PCR) log 12/07/20 12/07/20 12/07/20 07:28 07:48 11:48 WBC RBC Hgb Hct MCV MCH Plt Count Lymph % (Auto) [place] % (Auto) [place] # (Auto) Seg Neutrophils % Seg Neutrophils # POC ABG pO2 ABG Hemoglobin ABG Oxyhemoglobin ABG Sodium ABG Glucose Carboxyhemoglobin Sodium Carbon Dioxide Glucose POC Glucose 290 H 217 H Hemoglobin A1c Calcium Iron 22 L Lactate Dehydrogenase C-Reactive Protein Total Protein Albumin Arterial Blood Glucose Lymph Enumerat CD4/CD8 % CD3 Cells % CD4 Cells Absolute CD4 Count % CD8 Cells Absolute CD19 Count HIV-1 RNA PCR copies/ml HIV-1 RNA (PCR) log 12/07/20 12/07/20 12/08/20 16:46 22:36 08:50 WBC RBC Hgb Hct MCV MCH Plt Count Lymph % (Auto) [place] % (Auto) [place] # (Auto) Seg Neutrophils % Seg Neutrophils # POC ABG pO2 ABG Hemoglobin ABG Oxyhemoglobin ABG Sodium ABG Glucose Carboxyhemoglobin Sodium Carbon Dioxide Glucose POC Glucose 203 H 189 H 293 H Hemoglobin A1c Calcium Iron Lactate Dehydrogenase C-Reactive Protein Total Protein Albumin Arterial Blood Glucose Lymph Enumerat CD4/CD8 % CD3 Cells % CD4 Cells Absolute CD4 Count % CD8 Cells Absolute CD19 Count HIV-1 RNA PCR copies/ml HIV-1 RNA (PCR) log 12/08/20 12/08/20 12/08/20 11:35 16:18 16:39 WBC RBC Hgb Hct MCV MCH Plt Count Lymph % (Auto) [place] % (Auto) [place] # (Auto) Seg Neutrophils % Seg Neutrophils # POC ABG pO2 ABG Hemoglobin 9.4 L ABG Oxyhemoglobin ABG Sodium 132.7 L ABG Glucose 303 H Carboxyhemoglobin 0.4 L Sodium Carbon Dioxide Glucose POC Glucose 360 H 288 H Hemoglobin A1c Calcium Iron Lactate Dehydrogenase C-Reactive Protein Total Protein Albumin Arterial Blood Glucose 303 H Lymph Enumerat CD4/CD8 % CD3 Cells % CD4 Cells Absolute CD4 Count % CD8 Cells Absolute CD19 Count HIV-1 RNA PCR copies/ml HIV-1 RNA (PCR) log 12/08/20 12/09/20 12/09/20 21:08 13:32 21:43 WBC RBC Hgb Hct MCV MCH Plt Count Lymph % (Auto) [place] % (Auto) [place] # (Auto) Seg Neutrophils % Seg Neutrophils # POC ABG pO2 ABG Hemoglobin ABG Oxyhemoglobin ABG Sodium ABG Glucose Carboxyhemoglobin Sodium Carbon Dioxide Glucose POC Glucose 300 H 394 H Hemoglobin A1c Calcium Iron Lactate Dehydrogenase 273 H C-Reactive Protein Total Protein Albumin Arterial Blood Glucose Lymph Enumerat CD4/CD8 % CD3 Cells % CD4 Cells Absolute CD4 Count % CD8 Cells Absolute CD19 Count HIV-1 RNA PCR copies/ml HIV-1 RNA (PCR) log 12/10/20 12/10/20 12/10/20 07:37 11:04 15:37 WBC RBC Hgb Hct MCV MCH Plt Count Lymph % (Auto) [place] % (Auto) [place] # (Auto) Seg Neutrophils % Seg Neutrophils # POC ABG pO2 ABG Hemoglobin ABG Oxyhemoglobin ABG Sodium ABG Glucose Carboxyhemoglobin Sodium Carbon Dioxide Glucose POC Glucose 431 H 386 H 339 H Hemoglobin A1c Calcium Iron Lactate Dehydrogenase C-Reactive Protein Total Protein Albumin Arterial Blood Glucose Lymph Enumerat CD4/CD8 % CD3 Cells % CD4 Cells Absolute CD4 Count % CD8 Cells Absolute CD19 Count HIV-1 RNA PCR copies/ml HIV-1 RNA (PCR) log 12/10/20 12/11/20 12/11/20 21:09 07:24 10:56 WBC RBC Hgb Hct MCV MCH Plt Count Lymph % (Auto) [place] % (Auto) [place] # (Auto) Seg Neutrophils % Seg Neutrophils # POC ABG pO2 ABG Hemoglobin ABG Oxyhemoglobin ABG Sodium ABG Glucose Carboxyhemoglobin Sodium Carbon Dioxide Glucose POC Glucose 412 H 399 H 431 H Hemoglobin A1c Calcium Iron Lactate Dehydrogenase C-Reactive Protein Total Protein Albumin Arterial Blood Glucose Lymph Enumerat CD4/CD8 % CD3 Cells % CD4 Cells Absolute CD4 Count % CD8 Cells Absolute CD19 Count HIV-1 RNA PCR copies/ml HIV-1 RNA (PCR) log 12/11/20 12/11/20 12/12/20 16:26 22:31 00:53 WBC RBC Hgb Hct MCV MCH Plt Count Lymph % (Auto) [place] % (Auto) [place] # (Auto) Seg Neutrophils % Seg Neutrophils # POC ABG pO2 ABG Hemoglobin ABG Oxyhemoglobin ABG Sodium ABG Glucose Carboxyhemoglobin Sodium Carbon Dioxide Glucose POC Glucose 320 H 361 H 255 H Hemoglobin A1c Calcium Iron Lactate Dehydrogenase C-Reactive Protein Total Protein Albumin Arterial Blood Glucose Lymph Enumerat CD4/CD8 % CD3 Cells % CD4 Cells Absolute CD4 Count % CD8 Cells Absolute CD19 Count HIV-1 RNA PCR copies/ml HIV-1 RNA (PCR) log 12/12/20 12/12/20 12/12/20 07:16 10:47 16:40 WBC RBC Hgb Hct MCV MCH Plt Count Lymph % (Auto) [place] % (Auto) [place] # (Auto) Seg Neutrophils % Seg Neutrophils # POC ABG pO2 ABG Hemoglobin ABG Oxyhemoglobin ABG Sodium ABG Glucose Carboxyhemoglobin Sodium Carbon Dioxide Glucose POC Glucose 171 H 156 H 146 H Hemoglobin A1c Calcium Iron Lactate Dehydrogenase C-Reactive Protein Total Protein Albumin Arterial Blood Glucose Lymph Enumerat CD4/CD8 % CD3 Cells % CD4 Cells Absolute CD4 Count % CD8 Cells Absolute CD19 Count HIV-1 RNA PCR copies/ml HIV-1 RNA (PCR) log 12/12/20 12/13/20 12/13/20 22:04 07:29 08:19 WBC RBC Hgb Hct MCV MCH Plt Count Lymph % (Auto) [place] % (Auto) [place] # (Auto) Seg Neutrophils % Seg Neutrophils # POC ABG pO2 ABG Hemoglobin ABG Oxyhemoglobin ABG Sodium ABG Glucose Carboxyhemoglobin Sodium Carbon Dioxide Glucose POC Glucose 214 H 211 H Hemoglobin A1c Calcium Iron Lactate Dehydrogenase C-Reactive Protein Total Protein Albumin Arterial Blood Glucose Lymph Enumerat CD4/CD8 0.02 L % CD3 Cells 90 H % CD4 Cells 2 L Absolute CD4 Count 22 L % CD8 Cells 88 H Absolute CD19 Count 72 L HIV-1 RNA PCR copies/ml HIV-1 RNA (PCR) log 12/13/20 12/13/20 12/13/20 08:19 11:09 11:23 WBC 13.3 H RBC Hgb 9.3 L Hct 29.6 L MCV 76 L MCH 24 L Plt Count 653 H Lymph % (Auto) [place] % (Auto) [place] # (Auto) 0.9 H Seg Neutrophils % 74.8 H Seg Neutrophils # 9.9 H POC ABG pO2 ABG Hemoglobin ABG Oxyhemoglobin ABG Sodium ABG Glucose Carboxyhemoglobin Sodium Carbon Dioxide Glucose POC Glucose 255 H Hemoglobin A1c Calcium Iron Lactate Dehydrogenase C-Reactive Protein Total Protein Albumin Arterial Blood Glucose Lymph Enumerat CD4/CD8 % CD3 Cells % CD4 Cells Absolute CD4 Count % CD8 Cells Absolute CD19 Count HIV-1 RNA PCR copies/ml 112808 H HIV-1 RNA (PCR) log 5.17 H 12/13/20 12/13/20 12/13/20 15:33 16:00 20:59 WBC RBC Hgb Hct MCV MCH Plt Count Lymph % (Auto) [place] % (Auto) [place] # (Auto) Seg Neutrophils % Seg Neutrophils # POC ABG pO2 70.0 L ABG Hemoglobin 10.4 L ABG Oxyhemoglobin 93.9 L ABG Sodium 131.5 L ABG Glucose 239 H Carboxyhemoglobin Sodium Carbon Dioxide Glucose POC Glucose 225 H 267 H Hemoglobin A1c Calcium Iron Lactate Dehydrogenase C-Reactive Protein Total Protein Albumin Arterial Blood Glucose 239 H Lymph Enumerat CD4/CD8 % CD3 Cells % CD4 Cells Absolute CD4 Count % CD8 Cells Absolute CD19 Count HIV-1 RNA PCR copies/ml HIV-1 RNA (PCR) log 12/14/20 12/14/20 12/14/20 07:15 07:15 07:41 WBC 11.5 H RBC 3.54 L Hgb 8.5 L Hct 26.5 L MCV 75 L MCH 24 L Plt Count 513 H Lymph % (Auto) [place] % (Auto) [place] # (Auto) Seg Neutrophils % Seg Neutrophils # POC ABG pO2 ABG Hemoglobin ABG Oxyhemoglobin ABG Sodium ABG Glucose Carboxyhemoglobin Sodium 134 L Carbon Dioxide Glucose 154 H POC Glucose 162 H Hemoglobin A1c Calcium Iron Lactate Dehydrogenase C-Reactive Protein Total Protein Albumin Arterial Blood Glucose Lymph Enumerat CD4/CD8 % CD3 Cells % CD4 Cells Absolute CD4 Count % CD8 Cells Absolute CD19 Count HIV-1 RNA PCR copies/ml HIV-1 RNA (PCR) log 12/14/20 12/14/20 12/14/20 11:58 17:16 21:07 WBC RBC Hgb Hct MCV MCH Plt Count Lymph % (Auto) [place] % (Auto) [place] # (Auto) Seg Neutrophils % Seg Neutrophils # POC ABG pO2 ABG Hemoglobin ABG Oxyhemoglobin ABG Sodium ABG Glucose Carboxyhemoglobin Sodium Carbon Dioxide Glucose POC Glucose 260 H 314 H 402 H Hemoglobin A1c Calcium Iron Lactate Dehydrogenase C-Reactive Protein Total Protein Albumin Arterial Blood Glucose Lymph Enumerat CD4/CD8 % CD3 Cells % CD4 Cells Absolute CD4 Count % CD8 Cells Absolute CD19 Count HIV-1 RNA PCR copies/ml HIV-1 RNA (PCR) log 12/15/20 12/15/20 12/15/20 07:33 11:13 17:09 WBC RBC Hgb Hct MCV MCH Plt Count Lymph % (Auto) [place] % (Auto) [place] # (Auto) Seg Neutrophils % Seg Neutrophils # POC ABG pO2 ABG Hemoglobin ABG Oxyhemoglobin ABG Sodium ABG Glucose Carboxyhemoglobin Sodium Carbon Dioxide Glucose POC Glucose 249 H 344 H 251 H Hemoglobin A1c Calcium Iron Lactate Dehydrogenase C-Reactive Protein Total Protein Albumin Arterial Blood Glucose Lymph Enumerat CD4/CD8 % CD3 Cells % CD4 Cells Absolute CD4 Count % CD8 Cells Absolute CD19 Count HIV-1 RNA PCR copies/ml HIV-1 RNA (PCR) log 12/15/20 12/16/20 12/16/20 21:34 07:06 07:06 WBC 14.7 H RBC 3.50 L Hgb 8.5 L Hct 26.3 L MCV 75 L MCH 24 L Plt Count 540 H Lymph % (Auto) 10.3 L [place] % (Auto) [place] # (Auto) 1.1 H Seg Neutrophils % 81.8 H Seg Neutrophils # 12.0 H POC ABG pO2 ABG Hemoglobin ABG Oxyhemoglobin ABG Sodium ABG Glucose Carboxyhemoglobin Sodium 135 L Carbon Dioxide 21 L Glucose POC Glucose 294 H Hemoglobin A1c Calcium Iron Lactate Dehydrogenase C-Reactive Protein Total Protein Albumin Arterial Blood Glucose Lymph Enumerat CD4/CD8 % CD3 Cells % CD4 Cells Absolute CD4 Count % CD8 Cells Absolute CD19 Count HIV-1 RNA PCR copies/ml HIV-1 RNA (PCR) log 12/16/20 12/16/20 12/16/20 11:16 16:34 22:05 WBC RBC Hgb Hct MCV MCH Plt Count Lymph % (Auto) [place] % (Auto) [place] # (Auto) Seg Neutrophils % Seg Neutrophils # POC ABG pO2 ABG Hemoglobin ABG Oxyhemoglobin ABG Sodium ABG Glucose Carboxyhemoglobin Sodium Carbon Dioxide Glucose POC Glucose 138 H 354 H 414 H Hemoglobin A1c Calcium Iron Lactate Dehydrogenase C-Reactive Protein Total Protein Albumin Arterial Blood Glucose Lymph Enumerat CD4/CD8 % CD3 Cells % CD4 Cells Absolute CD4 Count % CD8 Cells Absolute CD19 Count HIV-1 RNA PCR copies/ml HIV-1 RNA (PCR) log 12/17/20 12/17/20 12/17/20 11:05 17:36 21:41 WBC RBC Hgb Hct MCV MCH Plt Count Lymph % (Auto) [place] % (Auto) [place] # (Auto) Seg Neutrophils % Seg Neutrophils # POC ABG pO2 ABG Hemoglobin ABG Oxyhemoglobin ABG Sodium ABG Glucose Carboxyhemoglobin Sodium Carbon Dioxide Glucose POC Glucose 149 H 350 H 434 H Hemoglobin A1c Calcium Iron Lactate Dehydrogenase C-Reactive Protein Total Protein Albumin Arterial Blood Glucose Lymph Enumerat CD4/CD8 % CD3 Cells % CD4 Cells Absolute CD4 Count % CD8 Cells Absolute CD19 Count HIV-1 RNA PCR copies/ml HIV-1 RNA (PCR) log 12/18/20 12/18/20 07:10 11:13 WBC RBC Hgb Hct MCV MCH Plt Count Lymph % (Auto) [place] % (Auto) [place] # (Auto) Seg Neutrophils % Seg Neutrophils # POC ABG pO2 ABG Hemoglobin ABG Oxyhemoglobin ABG Sodium ABG Glucose Carboxyhemoglobin Sodium Carbon Dioxide Glucose POC Glucose 222 H 247 H Hemoglobin A1c Calcium Iron Lactate Dehydrogenase C-Reactive Protein Total Protein Albumin Arterial Blood Glucose Lymph Enumerat CD4/CD8 % CD3 Cells % CD4 Cells Absolute CD4 Count % CD8 Cells Absolute CD19 Count HIV-1 RNA PCR copies/ml HIV-1 RNA (PCR) log Allied health notes reviewed: nursing
[2020-12-18] MEDS: oxyCODONE /ACETAMINOPHEN 5-325MG TAB PO PRN (20:22)
[2020-12-19] MEDS: DEXTROSE 5% IV SCH ×3 (01:43→17:45)
[2020-12-19] MEDS: TMP IV SCH ×3 (01:43→17:45)
[2020-12-19] MEDS: SMX IV SCH ×3 (01:43→17:45)
[2020-12-19] MEDS: WATER IV SCH ×3 (01:43→17:45)
[2020-12-19] MEDS: METOCLOPRAMIDE 10 MG/2 ML INJ IV PRN ×3 (01:44→17:45)
[2020-12-19] MEDS: ONDANSETRON 4 MG/2 ML INJ IV PRN ×3 (01:44→17:45)
[2020-12-19] MEDS: INSULIN LISPRO 100 UNIT/ML SUB-Q SCH ×4 (07:52→22:17)
--- NOTE | 2020-12-19 08:03 | Progress Note ---
Assessment and Plan Assessment and plan: 35-year-old female with history of HIV, type 2 diabetes and CHF comes in for 1 week of body aches cough and shortness of breath and low-grade fever. Cough is productive of mucoid sputum. Body aches are the most distressing symptom that she had. Patient is a poor historian.. Patient denies getting vaccination for coronavirus. Generalized abdominal pain. Shortness of breath present. Generalized malaise present. (1) Sepsis with acute hypoxic respiratory failure Current Visit: Yes Status: Acute Qualifiers: Severe sepsis shock status: unspecified Plan to address problem: Supplemental oxygen and keep the oxygen saturations above 92 Possible Covid pneumonia Treat for bilateral pneumonia and COVID pneumonia (2) Bilateral pneumonia Current Visit: Yes Status: Acute Plan to address problem: Treated as community-acquired pneumonia Coronavirus PCR requested IV Decadron initiated ID consult requested (3) CHF (congestive heart failure) Current Visit: No Status: Chronic Qualifiers: Heart failure type: combined systolic and diastolic Plan to address problem: Cardiogram for ejection fraction IV Lasix 40 mg every 24 (4) Person under investigation for COVID-19 Current Visit: Yes Status: Acute Plan to address problem: Coronavirus PCR requested IV Decadron initiated Zinc vitamin C and vitamin D initiated (5) HIV (human immunodeficiency virus infection) Current Visit: Yes Status: Chronic Qualifiers: HIV symptom status: asymptomatic, with no history of HIV-related illness Qualified Code(s): Z21 - Asymptomatic human immunodeficiency virus [HIV] infection status Plan to address problem: Patient on Zithromax (6) T2DM (type 2 diabetes mellitus) Current Visit: Yes Status: Chronic Qualifiers: 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 Plan to address problem: Check hemoglobin A1c Accu-Cheks AC at bedtime Coverage as per moderate dose sliding scale Continue Metformin (7) DVT prophylaxis Current Visit: Yes Status: Acute Plan to address problem: On Lovenox and GI prophylaxis (8) Anemia Current Visit: Yes Status: Chronic Qualifiers: Anemia type: iron deficiency Plan to address problem: Probable iron deficiency anemia: Check iron levels B12 and folic acid (9) DVT prophylaxis Current Visit: No Status: Acute Plan to address problem: Lovenox and GI prophylaxis 12/07/2020 -COVID-19 test is pending -Continue with IV antibiotics for now, follow procalcitonin level -ID consulted. -Patient's hemoglobin A1c is 8.2 -HIV; patient will follow with ID 12/08/2020 -CTA showed worsening of her groundglass opacities -COVID-19 test was negative -ID consulted and recommend to continue with antibiotics for now -Patient is on her HIV medications -Patient will oxygen saturation dropped to 85% on ambulation and patient require oxygen at discharge -I put a consult for pulmonary 12/09/2020 -Patient's proBNP is normal, pulmonary ordered echo. Patient states she has history of CHF and told me she was diagnosed in this hospital but I check her records and there is no echo report. -Home oxygen arranged. 12/10/2020 -Echo showed no CHF. Patient was seen by ID and started the patient on Bactrim for suspected PCP, and fluconazole for oral candidiasis. We going to follow Fungitell and induced sputum for PCP. Patient has hyperglycemia and added 15 units of Lantus, change Solu-Medrol to prednisone 40 mg daily. Disposition is per pulmonary and ID recommendation 12/11/2020; patient is on Bactrim and fluconazole per ID recommendation. Patient is on steroid per pulmonary recommendation. Induced sputum for PCP was ordered but there was no collected, in detail was ordered. Patient's blood sugar is uncontrolled and I increase Lantus from 15 to 25 units, change sliding scale from moderate to high dose. Continue to monitor and adjust as needed. Disposition is per pulmonary and ID recommendation. Pulmonary evaluated and recommendations as follows: Patient has been scheduled for bronchoscopy with TBBx, cytology brushings, BAL tomorrow at 1pm. Patient is NPO from midnight. Enoxaparin has been stopped. Start D51/2Nsaline at midnight. 12/12: Still with generalized body pain, Bronch today, Will monitor, Pain control. lethargic, awaiting 12/13: Continue supportive care, ID input noted, patient is post Bronchosocpy 12/12- Awaiting microdata and serologies. CONTINUE PAIN CONTROL 12/14: Patient noted with worsening respiratory distress and hypoxia, chest x-ray otherwise shows improvement in symptoms. I encouraged the patient to prone herself during hours of sleep. To use pillows across her chest with deep breaths and practice incentive spirometer. We will continue to monitor wean oxygen as tolerated. Continue awaiting cultures from recent bronchscopy 12/15/20 patient is seen and examined. shortness of breath is same. But patient is coughing. Chest x-ray shows improvement in the appearance in irrigation throughout the both lung as compared to previous exam. Continue Bactrim IV every 8 hours, prednisone 40 mg p.o. daily. Follow-up BAL culture for fungi, AFB. Follow-up HIV RNA PCR, CD4 count. ID consult. Continue current management. Recheck CBC in the morning. Out of bed to chair and PT evaluation. 12/16/20 patient seen and examined. Lab and medication reviewed.Patient is on high flow oxygen nasal cannula 18 L/min FiO2 70%. Patient feels better compared to yesterday. Decreased shortness of breath. Mild coughing. Continue Bactrim IV every 8 hours, prednisone 40 mg p.o. daily. Follow-up BAL culture for fungi, AFB. Follow-up HIV RNA PCR, CD4 count. ID consult. Continue current management. Recheck CBC in the morning. Out of bed to chair and PT evaluation. 12/17: Patient remains critically ill. Still on high flow oxygen FiO2 70% sat urating 94%. Will transfer patient to [facility]. Continue to encourage prone positioning, also encourage incentive spirometer. Pulmonary following. She states that Bactrim was making her sick and she had refused but will defer to ID to see if any changes will be made. We will also obtain a GI evaluation as she states that she has not been able to tolerate diet. This will be to help evaluate for any esophageal disorder secondary to Immunocompromised condition. 12/18: Patient down to 50% Fio2, with saturation of 96%, states she is feeling better some what. Will continue to encourage ambulation and PT. Monitor Oxygen levels. Continue supportive care. History Interval history: Patient seen and examined, this morning. feels better today. No new complaints. Hospitalist Physical - Physical exam Narrative exam: VITAL SIGNS: Reviewed. GENERAL: The patient appears normally developed but ill-appearing on high flow, more awake vital signs as documented. HEAD: No signs of head trauma. EYES: Pupils are equal. Extraocular motions intact. EARS: Hearing grossly intact. MOUTH: Oropharynx is normal. NECK: No adenopathy, no JVD. CHEST: Chest with diminished breath sounds bilaterally with otherwise crackles. No wheezes. CARDIAC: Regular rate and rhythm. S1 and S2, without murmurs, gallops, or rubs. VASCULAR: No Edema. Peripheral pulses normal and equal in all extremities. ABDOMEN: Soft, non tender and non distended. No rebound or guarding, and no masses palpated. Bowel Sounds normal. MUSCULOSKELETAL: Good range of motion of all major joints. Extremities without clubbing, cyanosis or edema. NEUROLOGIC EXAM: Awake but lethargic oriented x 3 No focal sensory or strength deficits. Speech normal. Follows commands. PSYCHIATRIC: Mood normal. SKIN: detail exam as documented in skin assessment - Constitutional Vitals: Temp Pulse Resp BP Pulse Ox 98.2 F 81 26 H 122/74 98 12/19/20 04:00 12/19/20 06:00 12/19/20 06:00 12/19/20 06:00 12/19/20 06:00 General appearance: Present: mild distress, well-nourished HEART Score - HEART Score Troponin: Troponin T < 0.010 ng/mL (0.00-0.029) 12/06/20 14:04 Results - Labs CBC & Chem 7: 12/16/20 07:06 12/16/20 07:06 Labs: Laboratory Last Values WBC 14.7 K/mm3 (4.5-11.0) H 12/16/20 07:06 RBC 3.50 M/mm3 (3.65-5.03) L 12/16/20 07:06 Hgb 8.5 gm/dl (10.1-14.3) L 12/16/20 07:06 Hct 26.3 % (30.3-42.9) L 12/16/20 07:06 MCV 75 fl (79-97) L 12/16/20 07:06 MCH 24 pg (28-32) L 12/16/20 07:06 MCHC 32 % (30-34) 12/16/20 07:06 RDW 14.4 % (13.2-15.2) 12/16/20 07:06 Plt Count 540 K/mm3 (140-440) H 12/16/20 07:06 Lymph % (Auto) 10.3 % (13.4-35.0) L 12/16/20 07:06 [place] % (Auto) 7.3 % (0.0-7.3) 12/16/20 07:06 Eos % (Auto) 0.5 % (0.0-4.3) 12/16/20 07:06 Baso % (Auto) 0.1 % (0.0-1.8) 12/16/20 07:06 Lymph # (Auto) 1.5 K/mm3 (1.2-5.4) 12/16/20 07:06 [place] # (Auto) 1.1 K/mm3 (0.0-0.8) H 12/16/20 07:06 Eos # (Auto) 0.1 K/mm3 (0.0-0.4) 12/16/20 07:06 Baso # (Auto) 0.0 K/mm3 (0.0-0.1) 12/16/20 07:06 Seg Neutrophils % 81.8 % (40.0-70.0) H 12/16/20 07:06 Seg Neutrophils # 12.0 K/mm3 (1.8-7.7) H 12/16/20 07:06 Abs Lymphs (Manual) 1273 cells/uL (850-3900) 12/13/20 08:19 D-Dimer 185.58 ng/mlDDU (0-234) 12/06/20 15:24 ABG pH 7.441 (7.320-7.450) 12/13/20 15:33 POC ABG pCO2 33.7 mmHg (32.0-48.0) 12/13/20 15:33 POC ABG pO2 70.0 mmHg (83-108) L 12/13/20 15:33 POC ABG HCO3 22.4 12/13/20 15:33 ABG O2 Saturation 94.9 (0-100) 12/13/20 15:33 POC ABG Base Excess -1.2 12/13/20 15:33 ABG Hemoglobin 10.4 (12.0-17.5) L 12/13/20 15:33 ABG Oxyhemoglobin 93.9 (94-98) L 12/13/20 15:33 ABG Methemoglobin 0.3 (0.0-1.5) 12/13/20 15:33 ABG Sodium 131.5 mmol/L (136.0-145.0) L 12/13/20 15:33 ABG Potassium 4.0 mmol/L (3.40-4.50) 12/13/20 15:33 ABG Chloride 100.0 mmol/L (98-107) 12/13/20 15:33 ABG Glucose 239 mg/dL (65-95) H 12/13/20 15:33 Carboxyhemoglobin 0.8 (0.5-1.5) 12/13/20 15:33 FiO2 % 40.0 12/13/20 15:33 Sodium 135 mmol/L (137-145) L 12/16/20 07:06 Potassium 4.1 mmol/L (3.6-5.0) 12/16/20 07:06 Chloride 103.2 mmol/L (98-107) 12/16/20 07:06 Carbon Dioxide 21 mmol/L (22-30) L 12/16/20 07:06 Anion Gap 15 mmol/L 12/16/20 07:06 BUN 11 mg/dL (7-17) 12/16/20 07:06 Creatinine 0.8 mg/dL (0.6-1.2) 12/16/20 07:06 Estimated GFR > 60 ml/min 12/16/20 07:06 BUN/Creatinine Ratio 14 % 12/16/20 07:06 Glucose 80 mg/dL (65-100) 12/16/20 07:06 POC Glucose 138 mg/dL (70-105) H 12/19/20 07:30 Hemoglobin A1c 8.2 % (4-6) H 12/07/20 02:12 Lactic Acid 1.10 mmol/L (0.7-2.0) 12/06/20 23:55 Calcium 9.1 mg/dL (8.4-10.2) 12/16/20 07:06 Iron 22 ug/dL (37-170) L 12/07/20 07:28 TIBC 341 mcg/dL (250-450) 12/07/20 07:28 % Saturation 6.45 % 12/07/20 07:28 Transferrin 292 mg/dl (192-382) 12/07/20 07:28 Ferritin 40.7 ng/mL (10.0-200.0) 12/06/20 15:24 Total Bilirubin 0.40 mg/dL (0.1-1.2) 12/07/20 02:12 AST 26 units/L (5-40) 12/07/20 02:12 ALT 9 units/L (7-56) 12/07/20 02:12 Alkaline Phosphatase 94 units/L (35-129) 12/07/20 02:12 Lactate Dehydrogenase 273 units/L (91-180) H 12/09/20 13:32 Troponin T < 0.010 ng/mL (0.00-0.029) 12/06/20 14:04 C-Reactive Protein 7.10 mg/dL (0.00-1.30) H 12/06/20 15:24 NT-Pro-B Natriuret Pep 150.7 pg/mL (0-450) 12/09/20 00:43 Total Protein 8.3 g/dL (6.3-8.2) H 12/07/20 02:12 Albumin 3.2 g/dL (3.9-5) L 12/07/20 02:12 Albumin/Globulin Ratio 0.6 % 12/07/20 02:12 Vitamin B12 304.1 pg/mL (211-911) 12/07/20 07:28 RBC Folic Acid 711 ng/mL (>280) 12/07/20 07:28 Procalcitonin < 0.05 ng/mL (<0.15) 12/06/20 15:24 HCG, Qual Negative (Negative) 12/06/20 14:04 Arterial Blood Glucose 239 mg/dL (65-95) H 12/13/20 15:33 Arterial Blood Ionized Calcium 4.7 mg/dL (4.6-5.3) 12/13/20 15:33 Urine Color Yellow (Yellow) 12/07/20 Unknown Urine Turbidity Clear (Clear) 12/07/20 Unknown Urine pH 7.0 (5.0-7.0) 12/07/20 Unknown Ur Specific [place] 1.017 (1.003-1.030) 12/07/20 Unknown Urine Protein <15 mg/dl mg/dL (Negative) 12/07/20 Unknown Urine Glucose (UA) 150 mg/dL (Negative) 12/07/20 Unknown Urine Ketones Neg mg/dL (Negative) 12/07/20 Unknown Urine Blood Neg (Negative) 12/07/20 Unknown Urine Nitrite Neg (Negative) 12/07/20 Unknown Urine Bilirubin Neg (Negative) 12/07/20 Unknown Urine Urobilinogen 2.0 mg/dL (<2.0) 12/07/20 Unknown Ur Leukocyte Esterase Neg (Negative) 12/07/20 Unknown Urine WBC (Auto) < 1.0 /HPF (0.0-6.0) 12/07/20 Unknown Urine RBC (Auto) 1.0 /HPF (0.0-6.0) 12/07/20 Unknown U Epithel Cells (Auto) 6.0 /HPF (0-13.0) 12/07/20 Unknown DELFINO Screen Negative (Negative) 12/09/20 00:43 Lymph Enumerat CD4/CD8 0.02 (0.86-5.00) L 12/13/20 08:19 % CD3 Cells 90 % (57-85) H 12/13/20 08:19 Absolute CD3 Count 1149 cells/uL (840-3060) 12/13/20 08:19 % CD4 Cells 2 % (30-61) L 12/13/20 08:19 Absolute CD4 Count 22 cells/uL (490-1740) L 12/13/20 08:19 % CD8 Cells 88 % (12-42) H 12/13/20 08:19 Absolute CD8 Count 1087 cells/uL (180-1170) 12/13/20 08:19 % CD19 Cells 6 % (6-29) 12/13/20 08:19 Absolute CD19 Count 72 cells/uL (110-660) L 12/13/20 08:19 Coronavirus (PCR) Negative (Negative) 12/06/20 08:46 HIV-1 RNA PCR copies/ml [id number] Copies/mL H 12/13/20 08:19 HIV-1 RNA (PCR) log 5.17 Log cps/mL H 12/13/20 08:19 AFB Identification 12/13/20 Unknown AFB Identification 12/13/20 Unknown Fungal Id Prelim 12/13/20 Unknown Microbiology: Microbiology 12/13/20 11:09 Peripheral/Venous Blood Culture - Final NO GROWTH AFTER 5 DAYS 12/13/20 08:19 Peripheral/Venous Blood Culture - Final NO GROWTH AFTER 5 DAYS Santiago/IV: Voiding Method Bedside Commode Active Medications - Current Medications Current Medications: Generic Name Dose Route Start Last Admin Trade Name Freq PRN Reason Stop Dose Admin Acetaminophen 650 mg 12/06/20 21:36 Acetaminophen 325 Mg Tab PO Q4H PRN Pain MILD(1-3)/Fever >100.5/RODRIGUES Albuterol/Ipratropium 1 ampul 12/07/20 08:00 12/18/20 20:17 Ipratropium/Albuterol Sulfate 3 Ml Ampul.Neb IH 1 ampul TIDRT DARYA Administration Ascorbic Acid 1,000 mg 12/06/20 22:00 12/18/20 22:14 Ascorbic Acid 500 Mg Tab PO 1,000 mg BID DARYA Administration Cholecalciferol 5,000 unit 12/06/20 22:00 12/18/20 10:22 Cholecalciferol (Vit D3) 5,000 Unit Tab PO 5,000 unit DAILY DARYA Administration Famotidine 20 mg 12/06/20 22:00 12/18/20 22:13 Famotidine 20 Mg Tab PO 20 mg BID DARYA Administration Fluconazole 200 mg 12/09/20 13:00 12/18/20 10:22 Fluconazole 200 Mg Tab PO 200 mg QDAY DARYA Administration Protocol Guaifenesin 200 mg 12/06/20 23:59 12/17/20 06:18 Guaifenesin 100 Mg/5 Ml Oral Liqd PO 200 mg Q8H PRN Administration Cough Trimethoprim/Sulfamethoxazole 528.125 mls @ 350 mls/hr 12/14/20 10:00 01:43 450 mg/ Dextrose IV 12/21/20 03:31 350 mls/hr Q8H DARYA Administration Protocol Insulin Glargine 25 units 12/12/20 08:00 12/18/20 08:37 Insulin Glargine 100 Units/Ml SUB-Q 25 units QAMDIAB [facility] Administration Insulin Human Lispro 0 unit 12/09/20 22:00 12/19/20 07:52 Insulin Lispro 100 Unit/Ml SUB-Q Not Given ACHS [facility] Protocol Metformin HCl 500 mg 12/06/20 21:30 12/18/20 08:37 Metformin Xr 500mg Tab PO 500 mg QAMDIAB DARYA Administration Metoclopramide HCl 10 mg 12/06/20 21:36 12/19/20 01:44 Metoclopramide 10 Mg/2 Ml Inj IV 10 mg Q6H PRN Administration Nausea And Vomiting Morphine Sulfate 2 mg 12/12/20 14:28 12/18/20 08:38 Morphine 2 Mg/1 Ml Inj IV 2 mg Q4H PRN Administration Pain, Moderate (4-6) Nystatin 100,000 unit 12/17/20 14:00 12/18/20 20:23 Nystatin 500,000 Unit/5 Ml Oral Liqd PO 100,000 unit TID DARYA Administration Ondansetron HCl 4 mg 12/17/20 11:03 12/19/20 01:44 Ondansetron 4 Mg/2 Ml Inj IV 4 mg Q4H PRN Administration Nausea And Vomiting Oxycodone/Acetaminophen 2 tab 12/07/20 18:00 12/18/20 20:22 Oxycodone /Acetaminophen 5-325mg Tab PO 2 tab Q6H PRN Administration Pain, Moderate (4-6) Polyethylene Glycol 17 gm 12/11/20 18:05 12/11/20 18:24 Polyethylene Glycol 3350 17 Gm Powder PO 17 gm QDAY PRN Administration Constipation Prednisone 40 mg 12/16/20 10:00 12/18/20 10:23 Prednisone 20 Mg Tab PO 12/20/20 10:01 40 mg QDAY DARYA Administration Prednisone 20 mg 12/21/20 10:00 Prednisone 10 Mg Tab PO 12/31/20 10:01 QDAY DARYA Sodium Chloride 10 ml 12/06/20 22:00 12/18/20 22:13 Sodium Chloride 0.9% 10 Ml Flush Syringe IV 10 ml BID DARYA Administration Sodium Chloride 10 ml 12/06/20 21:36 12/17/20 10:44 Sodium Chloride 0.9% 10 Ml Flush Syringe IV 10 ml PRN PRN Administration LINE FLUSH Tramadol HCl 50 mg 12/06/20 21:21 Tramadol 50 Mg Tab PO Q8H PRN PAIN (4-6) Zinc Sulfate 220 mg 12/17/20 10:00 12/18/20 10:22 Zinc Sulfate 220 Mg Cap PO 220 mg DAILY DARYA Administration Zolpidem Tartrate 5 mg 12/07/20 22:00 12/16/20 21:51 Zolpidem 5 Mg Tab PO 5 mg QHS PRN Administration Sleep Nutrition/Malnutrition Assess - Dietary Evaluation Nutrition/Malnutrition Findings: Nutrition Notes Start: 12/07/20 15:58 Freq: Status: Active Protocol: Document 12/15/20 11:46 LM (Rec: 12/15/20 12:00 LM [email or web address]) Nutrition Notes Initial or Follow up Reassessment Current Diagnosis Diabetes,Sepsis,Heart Failure, Respiratory Failure Other Pertinent Diagnosis pneu Current Diet Consistent CHO, vegetarian Labs/Tests POC 249 Pertinent Medications Metformin Humalog Lantus NS at 100ml/hr Height 5 ft 7 in Weight 87 kg Arp Body Weight (kg) 61.36 BMI 30.0 Weight Status Obese Subjective/Other Information Pt stated she ate 75% of breakfast and drank Glucerna. Pt stated she would like broth or soup due to having stomach ache. Percent of energy/protein needs met: 100%/100% (PO and ONS) Burn Absent Trauma Absent Current % PO Good (75-100%) Minimum of two criteria No physical signs of malnutrition #1 Nutrition Diagnosis Inadequate oral intake As Evidenced by Signs and Symptoms Pt eating 75% Diagnosis Progress(for reassessment Improved documentation) Is patient on ventilator? No Is Patient Ambulatory and/or Out of Bed No REE-([place]-confined to bed) 1925.376 Kcal/Kg value to use for calculation 19 Approximate Energy Requirements Using 1653 kcal/Kg Additional Notes Protein: (0.8-1g/kg AdjBW: 75kg) 60-75g Fluid: 1ml/kcal or per MD Nutrition Intervention Change Diet Order: Continue Add Supplement/Snack (indicate name/kcal Glucerna BID /protein ) Provides kCal: 440 Provides Protein (gm) 20 Goal #1 Meet at least 75% of protein and energy needs Follow-Up By: 12/21/20 Additional Comments F/U for stable PO intakes, ONS
[2020-12-19] MEDS: NYSTATIN 500,000 UNIT/5 ML ORAL LIQD PO SCH ×3 (08:39→20:13)
[2020-12-19] MEDS: metFORMIN XR 500MG TAB PO SCH (08:39)
[2020-12-19] MEDS: INSULIN GLARGINE 100 UNITS/ML SUB-Q SCH (08:39)
--- NOTE | 2020-12-19 09:31 | Progress Note ---
Assessment and Plan Assessment and plan: (1) Sepsis with acute hypoxic respiratory failure Current Visit: Yes Status: Acute Qualifiers: Severe sepsis shock status: unspecified Plan to address problem: Supplemental oxygen and keep the oxygen saturations above 92 Possible Covid pneumonia Treat for bilateral pneumonia and Covid pneumonia (2) Bilateral pneumonia Current Visit: Yes Status: Acute Plan to address problem: Treated as community-acquired pneumonia Coronavirus PCR requested IV Decadron initiated ID consult requested (3) CHF (congestive heart failure) Current Visit: No Status: Chronic Qualifiers: Heart failure type: combined systolic and diastolic Plan to address problem: Cardiogram for ejection fraction IV Lasix 40 mg every 24 (4) Person under investigation for COVID-19 Current Visit: Yes Status: Acute Plan to address problem: Coronavirus PCR requested IV Decadron initiated Zinc vitamin C and vitamin D initiated (5) HIV (human immunodeficiency virus infection) Current Visit: Yes Status: Chronic Qualifiers: HIV symptom status: asymptomatic, with no history of HIV-related illness Qualified Code(s): Z21 - Asymptomatic human immunodeficiency virus [HIV] inf ection status Plan to address problem: Patient on Zithromax (6) T2DM (type 2 diabetes mellitus) Current Visit: Yes Status: Chronic Qualifiers: 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: unspecified terminal 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 insulin use status Plan to address problem: Check hemoglobin A1c Accu-Cheks AC at bedtime Coverage as per moderate dose sliding scale Continue Metformin (7) DVT prophylaxis Current Visit: Yes Status: Acute Plan to address problem: On Lovenox and GI prophylaxis (8) Anemia Current Visit: Yes Status: Chronic Qualifiers: Anemia type: iron deficiency Plan to address problem: Probable iron deficiency anemia: Check iron levels B12 and folic acid (9) DVT prophylaxis Current Visit: No Status: Acute Plan to address problem: Lovenox and GI prophylaxis 12/07/2020 -COVID-19 test is pending -Continue with IV antibiotics for now, follow procalcitonin level -ID consulted. -Patient's hemoglobin A1c is 8.2 -HIV; patient will follow with ID 12/08/2020 -CTA showed worsening of her groundglass opacities -COVID-19 test was negative -ID consulted and recommend to continue with antibiotics for now -Patient is on her HIV medications -Patient will oxygen saturation dropped to 85% on ambulation and patient require oxygen at discharge -I put a consult for pulmonary 12/09/2020 -Patient's proBNP is normal, pulmonary ordered echo. Patient states she has history of CHF and told me she was diagnosed in this hospital but I check her r ecords and there is no echo report. -Home oxygen arranged. 12/10/2020 -Echo showed no CHF. Patient was seen by ID and started the patient on Bactrim for suspected PCP, and fluconazole for oral candidiasis. We going to follow Fungitell and induced sputum for PCP. Patient has hyperglycemia and added 15 units of Lantus, change Solu-Medrol to prednisone 40 mg daily. Disposition is per pulmonary and ID recommendation 12/11/2020; patient is on Bactrim and fluconazole per ID recommendation. Patient is on steroid per pulmonary recommendation. Induced sputum for PCP was ordered but there was no collected, in detail was ordered. Patient's blood sugar is uncontrolled and I increase Lantus from 15 to 25 units, change sliding scale from moderate to high dose. Continue to monitor and adjust as needed. Disposition is per pulmonary and ID recommendation. Pulmonary evaluated and recommendations as follows: Patient has been scheduled for bronchoscopy with TBBx, cytology brushings, BAL tomorrow at 1pm. Patient is NPO from midnight. Enoxaparin has been stopped. Start D51/2Nsaline at midnight. 12/12: Still with generalized body pain, Bronch today, Will monitor, Pain control. lethargic, awaiting 12/13: Continue supportive care, ID input noted, patient is post Bronchosocpy 12/12- Awaiting microdata and serologies. CONTINUE PAIN CONTROL 12/14: Patient noted with worsening respiratory distress and hypoxia, chest x-ray otherwise shows improvement in symptoms. I encouraged the patient to prone herself during hours of sleep. To use pillows across her chest with deep br eaths and practice incentive spirometer. We will continue to monitor wean oxygen as tolerated. Continue awaiting cultures from recent bronchscopy 12/15/20 patient is seen and examined. shortness of breath is same. But patient is coughing. Chest x-ray shows improvement in the appearance in ir rigation throughout the both lung as compared to previous exam. Continue Bactrim IV every 8 hours, prednisone 40 mg p.o. daily. Follow-up BAL culture for fungi, AFB. Follow-up HIV RNA PCR, CD4 count. ID consult. Continue current management. Recheck CBC in the morning. Out of bed to chair and PT evaluation. 12/16/20 patient seen and examined. Lab and medication reviewed.Patient is on high flow oxygen nasal cannula 18 L/min FiO2 70%. Patient feels better compared to yesterday. Decreased shortness of breath. Mild coughing. Continue Bactrim IV every 8 hours, prednisone 40 mg p.o. daily. Follow-up BAL culture for fungi, AFB. Follow-up HIV RNA PCR, CD4 count. ID consult. Continue current management. Recheck CBC in the morning. Out of bed to chair and PT evaluation. 12/17: Patient remains critically ill. Still on high flow oxygen FiO2 70% saturating 94%. Will transfer patient to [facility]. Continue to encourage prone positioning, also encourage incentive spirometer. Pulmonary following. She states that Bactrim was making her sick and she had refused but will defer to ID to see if any changes will be made. We will also obtain a GI evaluation as she states that she has not been able to tolerate diet. This will be to help evaluate for any esophageal disorder secondary to Immunocompromised condition. 12/18: Patient down to 50% Fio2, with saturation of 96%, states she is feeling better some what. Will continue to encourage ambulation and PT. Monitor Oxygen levels. Continue supportive care. 12/19; patient is on 18 L of high flow oxygen, with FiO2 of 50%. Continue with Bactrim and steroids for pneumocystis pneumonia. Imaging and bronchial wash is consistent with pneumocystis pneumonia ID and pulmonary consult appreciated. Patient can be discharged to the floor. Management plan was discussed with the patient and was in agreement with the plan of care. History Interval history: Patient was seen and evaluated this morning Patient states she is feeling better today Patient is on 18 L of high flow oxygen with FiO2 of 50% Hospitalist Physical - Physical exam Narrative exam: Not in cardiopulmonary distress. The patient appeared well nourished and normally developed. Vital signs as documented. Head exam is unremarkable. Patient has oral thrush No scleral icterus . Neck is without jugular venous distension, thyromegaly, or carotid bruits. Lungs scattered wheezing. Cardiac exam reveals regular rate and Rhythm. Abdominal exam reveals normal bowel sounds, nontender, no organomegaly. Extremities are nonedematous and both femoral and pedal pulses are normal. 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 No focal weakness. - Constitutional Vitals: Temp Pulse Resp BP Pulse Ox 98.6 F 83 29 H 109/66 97 12/19/20 08:00 12/19/20 08:00 12/19/20 08:00 12/19/20 08:00 12/19/20 08:00 General appearance: Present: mild distress, well-nourished HEART Score - HEART Score Troponin: Troponin T < 0.010 ng/mL (0.00-0.029) 12/06/20 14:04 Results - Labs CBC & Chem 7: 12/16/20 07:06 12/19/20 08:34 Labs: Laboratory Last Values WBC 14.7 K/mm3 (4.5-11.0) H 12/16/20 07:06 RBC 3.50 M/mm3 (3.65-5.03) L 12/16/20 07:06 Hgb 8.5 gm/dl (10.1-14.3) L 12/16/20 07:06 Hct 26.3 % (30.3-42.9) L 12/16/20 07:06 MCV 75 fl (79-97) L 12/16/20 07:06 MCH 24 pg (28-32) L 12/16/20 07:06 MCHC 32 % (30-34) 12/16/20 07:06 RDW 14.4 % (13.2-15.2) 12/16/20 07:06 Plt Count 540 K/mm3 (140-440) H 12/16/20 07:06 Lymph % (Auto) 10.3 % (13.4-35.0) L 12/16/20 07:06 [place] % (Auto) 7.3 % (0.0-7.3) 12/16/20 07:06 Eos % (Auto) 0.5 % (0.0-4.3) 12/16/20 07:06 Baso % (Auto) 0.1 % (0.0-1.8) 12/16/20 07:06 Lymph # (Auto) 1.5 K/mm3 (1.2-5.4) 12/16/20 07:06 [place] # (Auto) 1.1 K/mm3 (0.0-0.8) H 12/16/20 07:06 Eos # (Auto) 0.1 K/mm3 (0.0-0.4) 12/16/20 07:06 Baso # (Auto) 0.0 K/mm3 (0.0-0.1) 12/16/20 07:06 Seg Neutrophils % 81.8 % (40.0-70.0) H 12/16/20 07:06 Seg Neutrophils # 12.0 K/mm3 (1.8-7.7) H 12/16/20 07:06 Abs Lymphs (Manual) 1273 cells/uL (850-3900) 12/13/20 08:19 D-Dimer 185.58 ng/mlDDU (0-234) 12/06/20 15:24 ABG pH 7.441 (7.320-7.450) 12/13/20 15:33 POC ABG pCO2 33.7 mmHg (32.0-48.0) 12/13/20 15:33 POC ABG pO2 70.0 mmHg (83-108) L 12/13/20 15:33 POC ABG HCO3 22.4 12/13/20 15:33 ABG O2 Saturation 94.9 (0-100) 12/13/20 15:33 POC ABG Base Excess -1.2 12/13/20 15:33 ABG Hemoglobin 10.4 (12.0-17.5) L 12/13/20 15:33 ABG Oxyhemoglobin 93.9 (94-98) L 12/13/20 15:33 ABG Methemoglobin 0.3 (0.0-1.5) 12/13/20 15:33 ABG Sodium 131.5 mmol/L (136.0-145.0) L 12/13/20 15:33 ABG Potassium 4.0 mmol/L (3.40-4.50) 12/13/20 15:33 ABG Chloride 100.0 mmol/L (98-107) 12/13/20 15:33 ABG Glucose 239 mg/dL (65-95) H 12/13/20 15:33 Carboxyhemoglobin 0.8 (0.5-1.5) 12/13/20 15:33 FiO2 % 40.0 12/13/20 15:33 Sodium 135 mmol/L (137-145) L 12/16/20 07:06 Potassium 4.1 mmol/L (3.6-5.0) 12/16/20 07:06 Chloride 103.2 mmol/L (98-107) 12/16/20 07:06 Carbon Dioxide 21 mmol/L (22-30) L 12/16/20 07:06 Anion Gap 15 mmol/L 12/16/20 07:06 BUN 11 mg/dL (7-17) 12/16/20 07:06 Creatinine 0.8 mg/dL (0.6-1.2) 12/16/20 07:06 Estimated GFR > 60 ml/min 12/16/20 07:06 BUN/Creatinine Ratio 14 % 12/16/20 07:06 Glucose 80 mg/dL (65-100) 12/16/20 07:06 POC Glucose 138 mg/dL (70-105) H 12/19/20 07:30 Hemoglobin A1c 8.2 % (4-6) H 12/07/20 02:12 Lactic Acid 1.10 mmol/L (0.7-2.0) 12/06/20 23:55 Calcium 9.1 mg/dL (8.4-10.2) 12/16/20 07:06 Iron 22 ug/dL (37-170) L 12/07/20 07:28 TIBC 341 mcg/dL (250-450) 12/07/20 07:28 % Saturation 6.45 % 12/07/20 07:28 Transferrin 292 mg/dl (192-382) 12/07/20 07:28 Ferritin 40.7 ng/mL (10.0-200.0) 12/06/20 15:24 Total Bilirubin 0.40 mg/dL (0.1-1.2) 12/07/20 02:12 AST 26 units/L (5-40) 12/07/20 02:12 ALT 9 units/L (7-56) 12/07/20 02:12 Alkaline Phosphatase 94 units/L (35-129) 12/07/20 02:12 Lactate Dehydrogenase 273 units/L (91-180) H 12/09/20 13:32 Troponin T < 0.010 ng/mL (0.00-0.029) 12/06/20 14:04 C-Reactive Protein 7.10 mg/dL (0.00-1.30) H 12/06/20 15:24 NT-Pro-B Natriuret Pep 150.7 pg/mL (0-450) 12/09/20 00:43 Total Protein 8.3 g/dL (6.3-8.2) H 12/07/20 02:12 Albumin 3.2 g/dL (3.9-5) L 12/07/20 02:12 Albumin/Globulin Ratio 0.6 % 12/07/20 02:12 Vitamin B12 304.1 pg/mL (211-911) 12/07/20 07:28 RBC Folic Acid 711 ng/mL (>280) 12/07/20 07:28 Procalcitonin < 0.05 ng/mL (<0.15) 12/06/20 15:24 HCG, Qual Negative (Negative) 12/06/20 14:04 Arterial Blood Glucose 239 mg/dL (65-95) H 12/13/20 15:33 Arterial Blood Ionized Calcium 4.7 mg/dL (4.6-5.3) 12/13/20 15:33 Urine Color Yellow (Yellow) 12/07/20 Unknown Urine Turbidity Clear (Clear) 12/07/20 Unknown Urine pH 7.0 (5.0-7.0) 12/07/20 Unknown Ur Specific [place] 1.017 (1.003-1.030) 12/07/20 Unknown Urine Protein <15 mg/dl mg/dL (Negative) 12/07/20 Unknown Urine Glucose (UA) 150 mg/dL (Negative) 12/07/20 Unknown Urine Ketones Neg mg/dL (Negative) 12/07/20 Unknown Urine Blood Neg (Negative) 12/07/20 Unknown Urine Nitrite Neg (Negative) 12/07/20 Unknown Urine Bilirubin Neg (Negative) 12/07/20 Unknown Urine Urobilinogen 2.0 mg/dL (<2.0) 12/07/20 Unknown Ur Leukocyte Esterase Neg (Negative) 12/07/20 Unknown Urine WBC (Auto) < 1.0 /HPF (0.0-6.0) 12/07/20 Unknown Urine RBC (Auto) 1.0 /HPF (0.0-6.0) 12/07/20 Unknown U Epithel Cells (Auto) 6.0 /HPF (0-13.0) 12/07/20 Unknown DELFINO Screen Negative (Negative) 12/09/20 00:43 Lymph Enumerat CD4/CD8 0.02 (0.86-5.00) L 12/13/20 08:19 % CD3 Cells 90 % (57-85) H 12/13/20 08:19 Absolute CD3 Count 1149 cells/uL (840-3060) 12/13/20 08:19 % CD4 Cells 2 % (30-61) L 12/13/20 08:19 Absolute CD4 Count 22 cells/uL (490-1740) L 12/13/20 08:19 % CD8 Cells 88 % (12-42) H 12/13/20 08:19 Absolute CD8 Count 1087 cells/uL (180-1170) 12/13/20 08:19 % CD19 Cells 6 % (6-29) 12/13/20 08:19 Absolute CD19 Count 72 cells/uL (110-660) L 12/13/20 08:19 Coronavirus (PCR) Negative (Negative) 12/06/20 08:46 HIV-1 RNA PCR copies/ml [id number] Copies/mL H 12/13/20 08:19 HIV-1 RNA (PCR) log 5.17 Log cps/mL H 12/13/20 08:19 AFB Identification 12/13/20 Unknown AFB Identification 12/13/20 Unknown Fungal Id Prelim 12/13/20 Unknown Microbiology: Microbiology 12/13/20 11:09 Peripheral/Venous Blood Culture - Final NO GROWTH AFTER 5 DAYS 12/13/20 08:19 Peripheral/Venous Blood Culture - Final NO GROWTH AFTER 5 DAYS Santiago/IV: Voiding Method Bedside Commode Active Medications - Current Medications Current Medications: Generic Name Dose Route Start Last Admin Trade Name Freq PRN Reason Stop Dose Admin Acetaminophen 650 mg 12/06/20 21:36 Acetaminophen 325 Mg Tab PO Q4H PRN Pain MILD(1-3)/Fever >100.5/RODRIGUES Albuterol/Ipratropium 1 ampul 12/07/20 08:00 12/18/20 20:17 Ipratropium/Albuterol Sulfate 3 Ml Ampul.Neb IH 1 ampul TIDRT DARYA Administration Ascorbic Acid 1,000 mg 12/06/20 22:00 12/18/20 22:14 Ascorbic Acid 500 Mg Tab PO 1,000 mg BID DARYA Administration Cholecalciferol 5,000 unit 12/06/20 22:00 12/18/20 10:22 Cholecalciferol (Vit D3) 5,000 Unit Tab PO 5,000 unit DAILY [facility] Administration Famotidine 20 mg 12/06/20 22:00 12/18/20 22:13 Famotidine 20 Mg Tab PO 20 mg BID DARYA Administration Fluconazole 200 mg 12/09/20 13:00 12/18/20 10:22 Fluconazole 200 Mg Tab PO 200 mg QDAY [facility] Administration Protocol Guaifenesin 200 mg 12/06/20 23:59 12/17/20 06:18 Guaifenesin 100 Mg/5 Ml Oral Liqd PO 200 mg Q8H PRN Administration Cough Trimethoprim/Sulfamethoxazole 528.125 mls @ 350 mls/hr 12/14/20 10:00 12/19/20 01:43 450 mg/ Dextrose IV 12/21/20 03:31 350 mls/hr Q8H DARYA Administration Protocol Insulin Glargine 25 units 12/12/20 08:00 12/18/20 08:37 Insulin Glargine 100 Units/Ml SUB-Q 25 units QAMOIAB [facility] Administration Insulin Human Lispro 0 unit 12/09/20 22:00 12/19/20 07:52 Insulin Lispro 100 Unit/Ml SUB-Q Not Given ACHS [facility] Protocol Metformin HCl 500 mg 12/06/20 21:30 12/18/20 08:37 Metformin Xr 500mg Tab PO 500 mg QAMDIAB [facility] Administration Metoclopramide HCl 10 mg 12/06/20 21:36 12/19/20 01:44 Metoclopramide 10 Mg/2 Ml Inj IV 10 mg Q6H PRN Administration Nausea And Vomiting Morphine Sulfate 2 mg 12/12/20 14:28 12/18/20 08:38 Morphine 2 Mg/1 Ml Inj IV 2 mg Q4H PRN Administration Pain, Moderate (4-6) Nystatin 100,000 unit 12/17/20 14:00 12/18/20 20:23 Nystatin 500,000 Unit/5 Ml Oral Liqd PO 100,000 unit TID [facility] Administration Ondansetron HCl 4 mg 12/17/20 11:03 12/19/20 01:44 Ondansetron 4 Mg/2 Ml Inj IV 4 mg Q4H PRN Administration Nausea And Vomiting Oxycodone/Acetaminophen 2 tab 12/07/20 18:00 12/18/20 20:22 Oxycodone /Acetaminophen 5-325mg Tab PO 2 tab Q6H PRN Administration Pain, Moderate (4-6) Polyethylene Glycol 17 gm 12/11/20 18:05 12/11/20 18:24 Polyethylene Glycol 3350 17 Gm Powder PO 17 gm QDAY PRN Administration Constipation Prednisone 40 mg 12/16/20 10:00 12/18/20 10:23 Prednisone 20 Mg Tab PO 12/20/20 10:01 40 mg QDAY DARYA Administration Prednisone 20 mg 12/21/20 10:00 Prednisone 10 Mg Tab PO 12/31/20 10:01 QDAY DARYA Sodium Chloride 10 ml 12/06/20 22:00 12/18/20 22:13 Sodium Chloride 0.9% 10 Ml Flush Syringe IV 10 ml BID DARYA Administration Sodium Chloride 10 ml 12/06/20 21:36 12/17/20 10:44 Sodium Chloride 0.9% 10 Ml Flush Syringe IV 10 ml PRN PRN Administration LINE FLUSH Tramadol HCl 50 mg 12/06/20 21:21 Tramadol 50 Mg Tab PO Q8H PRN PAIN (4-6) Zinc Sulfate 220 mg 12/17/20 10:00 12/18/20 10:22 Zinc Sulfate 220 Mg Cap PO 220 mg DAILY DARYA Administration Zolpidem Tartrate 5 mg 12/07/20 22:00 12/16/20 21:51 Zolpidem 5 Mg Tab PO 5 mg QHS PRN Administration Sleep Nutrition/Malnutrition Assess - Dietary Evaluation Nutrition/Malnutrition Findings: Nutrition Notes Start: 12/07/20 15:58 Freq: Status: Active Protocol: Document 12/15/20 11:46 LM (Rec: 12/15/20 12:00 LM [id number]) Nutrition Notes Initial or Follow up Reassessment Current Diagnosis Diabetes,Sepsis,Heart Failure, Respiratory Failure Other Pertinent Diagnosis pneu Current Diet Consistent CHO, vegetarian Labs/Tests POC 249 Pertinent Medications Metformin Humalog Lantus NS at 100ml/hr Height 5 ft 7 in Weight 87 kg [place] Body Weight (kg) 61.36 BMI 30.0 Weight Status Obese Subjective/Other Information Pt stated she ate 75% of breakfast and drank Glucerna. Pt stated she would like broth or soup due to having stomach ache. Percent of energy/protein needs met: 100%/100% (PO and ONS) Burn Absent Trauma Absent Current % PO Good (75-100%) Minimum of two criteria No physical signs of malnutrition #1 Nutrition Diagnosis Inadequate oral intake As Evidenced by Signs and Symptoms Pt eating 75% Diagnosis Progress(for reassessment Improved documentation) Is patient on ventilator? No Is Patient Ambulatory and/or Out of Bed No REE-([place]-confined to bed) 1925.376 Kcal/Kg value to use for calculation 19 Approximate Energy Requirements Using 1653 kcal/Kg Additional Notes Protein: (0.8-1g/kg AdjBW: 75kg) 60-75g Fluid: 1ml/kcal or per MD Nutrition Intervention Change Diet Order: Continue Add Supplement/Snack (indicate name/kcal Glucerna BID /protein ) Provides kCal: 440 Provides Protein (gm) 20 Goal #1 Meet at least 75% of protein and energy needs Follow-Up By: 12/21/20 Additional Comments F/U for stable PO intakes, ONS
[2020-12-19 09:51] LABS: BUN/Creatinine Ratio 10; Blood Urea Nitrogen 7 mg/dL (7-17); Calcium 9.1 mg/dL (8.4-10.2); Hemolysis Index 0
--- NOTE | 2020-12-19 10:02 | Progress Note ---
Assessment and Plan Patient alert, awake. Resting in bed.Patient is on vapotherm, FIO2 50% and O2 saturation 90%. Says shortness of breath getting better. Patient afebrile. Has leukocytosis. Patient has CTA of chest 12/06/20 reported No PE. Worsening bilateral ground glass opacities. Paiient Undergone bronchoscopy . Bronchoscopy specimen results positive for Pneumocystis. Chest xray done 12/13/20 reported improvement in appearence of chest compare to previous chest xray. Patient is on Prednisone, bactrim,Fluconazole. albuterol/atrovent aerosol treat ments, Famotidine. Patient was seen [facility]. I spent criritical care time of 35 minutes fir reviewing the chart, examine the patient, review lab results and xrays, talking to the nursing staff and re spiratory therapy and work out plan of treatment in this critically ill patient. - Patient Problems (1) Bilateral pneumonia Current Visit: Yes Status: Acute Plan to address problem: Bronchoscopy specimen reported positive for pneumocystis. Patient is on bactrim DS and Fluconazole. on Vapotherm, FIO2 50%. (2) History of HIV or AIDS Current Visit: Yes Status: Acute Plan to address problem: Management as per infectious diseases. (3) Person under investigation for COVID-19 Current Visit: Yes Status: Acute Plan to address problem: Patient [place] virus PCR negative. (4) T2DM (type 2 diabetes mellitus) Current Visit: Yes Status: Chronic Qualifiers: Diabetes mellitus 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 insulin use: unspecified 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 insulin use status Plan to address problem: Management as per primary care. (5) Atrial fibrillation with RVR Current Visit: No Status: Acute Plan to address problem: Management as per cardiology. (6) CHF (congestive heart failure) Current Visit: No Status: Chronic Qualifiers: Heart failure type: combined systolic and diastolic Plan to address problem: Management as per cardiology. Subjective Date of service: 12/19/20 Principal diagnosis: Sepsis; Ac hypoxemic resp failure; PJP Pneumonia; CHF; PUI COVID-19; HIV+ve Interval history: Patient alert, awake. Resting in bed.Patient is on vapotherm, FIO2 50% and O2 saturation 90%. Says shortness of breath getting better. Patient afebrile. Has leukocytosis. Patient has CTA of chest 12/06/20 reported No PE. Worsening bilateral ground glass opacities. Paiient Undergone bronchoscopy . Bronchoscopy specimen results positive for Pneumocystis. Chest xray done 12/13/20 reported improvement in appearence of chest compare to previous chest xray. Patient is on Prednisone, bactrim,Fluconazole. albuterol/atrovent aerosol treatments, Famotidine. Objective Vital Signs - 12hr 12/18/20 12/18/20 12/19/20 23:00 23:13 00:00 Temperature 97.9 F Pulse Rate 91 H 91 H 86 Pulse Rate [ 99 H From Monitor] Respiratory 27 H 26 H 15 Rate Blood Pressure 120/63 120/63 123/73 O2 Sat by Pulse 97 98 97 Oximetry 12/19/20 12/19/20 12/19/20 01:00 02:00 02:50 Temperature Pulse Rate 76 80 Pulse Rate [ From Monitor] Respiratory 24 26 H Rate Blood Pressure 123/73 116/68 O2 Sat by Pulse 98 96 95 Oximetry 12/19/20 12/19/20 12/19/20 03:00 04:00 05:00 Temperature 98.2 F Pulse Rate 76 74 78 Pulse Rate [ 74 From Monitor] Respiratory 14 22 26 H Rate Blood Pressure 107/66 105/56 122/74 O2 Sat by Pulse 99 95 98 Oximetry 12/19/20 12/19/20 12/19/20 06:00 07:00 08:00 Temperature 98.6 F Pulse Rate 81 81 81 Pulse Rate [ From Monitor] Respiratory 26 H 21 29 H Rate Blood Pressure 122/74 120/70 109/66 O2 Sat by Pulse 98 96 97 Oximetry Constitutional: no acute distress, alert, other (young female with mildly increased respiratory effort at rest ) Eyes: non-icteric ENT: oropharynx moist, other (oral candidiasis) Neck: supple, no lymphadenopathy, no JVD Effort: mildly labored Ascultation: Bilateral: diminished breath sounds, rales (faint in bases), rhonchi Percussion: Bilateral: not dull Cardiovascular: regular rate and rhythm, other (S1,S2) Gastrointestinal: normoactive bowel sounds, soft, non-tender, non-distended Integumentary: normal Extremities: no cyanosis, no edema, pulses normal, no ischemia or petechiae Neurologic: normal mental status, non-focal exam, pupils equal and round, CN II- XII normal, motor strength normal and (but wekness) Psychiatric: mood appropriate, affect normal CBC and BMP: 12/16/20 07:06 12/19/20 08:34 ABG, PT/INR, D-dimer: ABG ABG pH 7.441 (7.320-7.450) 12/13/20 15:33 POC ABG pCO2 33.7 mmHg (32.0-48.0) 12/13/20 15:33 POC ABG pO2 70.0 mmHg (83-108) L 12/13/20 15:33 POC ABG HCO3 22.4 12/13/20 15:33 ABG O2 Saturation 94.9 (0-100) 12/13/20 15:33 PT/INR, D-dimer D-Dimer 185.58 ng/mlDDU (0-234) 12/06/20 15:24 Abnormal lab findings: Abnormal Labs 12/06/20 12/06/20 12/06/20 14:04 14:04 15:24 WBC RBC 3.57 L Hgb 8.8 L Hct 27.3 L MCV 76 L MCH 25 L Plt Count Lymph % (Auto) [place] % (Auto) 8.5 H [place] # (Auto) Seg Neutrophils % Seg Neutrophils # POC ABG pO2 ABG Hemoglobin ABG Oxyhemoglobin ABG Sodium ABG Glucose Carboxyhemoglobin Sodium 136 L Carbon Dioxide Glucose 149 H POC Glucose Hemoglobin A1c Calcium Iron Lactate Dehydrogenase 418 H C-Reactive Protein 7.10 H Total Protein 8.6 H Albumin 2.9 L Arterial Blood Glucose Lymph Enumerat CD4/CD8 % CD3 Cells % CD4 Cells Absolute CD4 Count % CD8 Cells Absolute CD19 Count HIV-1 RNA PCR copies/ml HIV-1 RNA (PCR) log 12/07/20 12/07/20 12/07/20 02:12 02:12 02:12 WBC RBC 3.61 L Hgb 9.2 L Hct 27.8 L MCV 77 L MCH 26 L Plt Count Lymph % (Auto) [place] % (Auto) 9.4 H [place] # (Auto) Seg Neutrophils % Seg Neutrophils # POC ABG pO2 ABG Hemoglobin ABG Oxyhemoglobin ABG Sodium ABG Glucose Carboxyhemoglobin Sodium Carbon Dioxide Glucose 123 H POC Glucose Hemoglobin A1c 8.2 H Calcium 8.3 L Iron Lactate Dehydrogenase C-Reactive Protein Total Protein 8.3 H Albumin 3.2 L Arterial Blood Glucose Lymph Enumerat CD4/CD8 % CD3 Cells % CD4 Cells Absolute CD4 Count % CD8 Cells Absolute CD19 Count HIV-1 RNA PCR copies/ml HIV-1 RNA (PCR) log 12/07/20 12/07/20 12/07/20 07:28 07:48 11:48 WBC RBC Hgb Hct MCV MCH Plt Count Lymph % (Auto) [place] % (Auto) [place] # (Auto) Seg Neutrophils % Seg Neutrophils # POC ABG pO2 ABG Hemoglobin ABG Oxyhemoglobin ABG Sodium ABG Glucose Carboxyhemoglobin Sodium Carbon Dioxide Glucose POC Glucose 290 H 217 H Hemoglobin A1c Calcium Iron 22 L Lactate Dehydrogenase C-Reactive Protein Total Protein Albumin Arterial Blood Glucose Lymph Enumerat CD4/CD8 % CD3 Cells % CD4 Cells Absolute CD4 Count % CD8 Cells Absolute CD19 Count HIV-1 RNA PCR copies/ml HIV-1 RNA (PCR) log 12/07/20 12/07/20 12/08/20 16:46 22:36 08:50 WBC RBC Hgb Hct MCV MCH Plt Count Lymph % (Auto) [place] % (Auto) [place] # (Auto) Seg Neutrophils % Seg Neutrophils # POC ABG pO2 ABG Hemoglobin ABG Oxyhemoglobin ABG Sodium ABG Glucose Carboxyhemoglobin Sodium Carbon Dioxide Glucose POC Glucose 203 H 189 H 293 H Hemoglobin A1c Calcium Iron Lactate Dehydrogenase C-Reactive Protein Total Protein Albumin Arterial Blood Glucose Lymph Enumerat CD4/CD8 % CD3 Cells % CD4 Cells Absolute CD4 Count % CD8 Cells Absolute CD19 Count HIV-1 RNA PCR copies/ml HIV-1 RNA (PCR) log 12/08/20 12/08/20 12/08/20 11:35 16:18 16:39 WBC RBC Hgb Hct MCV MCH Plt Count Lymph % (Auto) [place] % (Auto) [place] # (Auto) Seg Neutrophils % Seg Neutrophils # POC ABG pO2 ABG Hemoglobin 9.4 L ABG Oxyhemoglobin ABG Sodium 132.7 L ABG Glucose 303 H Carboxyhemoglobin 0.4 L Sodium Carbon Dioxide Glucose POC Glucose 360 H 288 H Hemoglobin A1c Calcium Iron Lactate Dehydrogenase C-Reactive Protein Total Protein Albumin Arterial Blood Glucose 303 H Lymph Enumerat CD4/CD8 % CD3 Cells % CD4 Cells Absolute CD4 Count % CD8 Cells Absolute CD19 Count HIV-1 RNA PCR copies/ml HIV-1 RNA (PCR) log 12/08/20 12/09/20 12/09/20 21:08 13:32 21:43 WBC RBC Hgb Hct MCV MCH Plt Count Lymph % (Auto) [place] % (Auto) [place] # (Auto) Seg Neutrophils % Seg Neutrophils # POC ABG pO2 ABG Hemoglobin ABG Oxyhemoglobin ABG Sodium ABG Glucose Carboxyhemoglobin Sodium Carbon Dioxide Glucose POC Glucose 300 H 394 H Hemoglobin A1c Calcium Iron Lactate Dehydrogenase 273 H C-Reactive Protein Total Protein Albumin Arterial Blood Glucose Lymph Enumerat CD4/CD8 % CD3 Cells % CD4 Cells Absolute CD4 Count % CD8 Cells Absolute CD19 Count HIV-1 RNA PCR copies/ml HIV-1 RNA (PCR) log 12/10/20 12/10/20 12/10/20 07:37 11:04 15:37 WBC RBC Hgb Hct MCV MCH Plt Count Lymph % (Auto) [place] % (Auto) [place] # (Auto) Seg Neutrophils % Seg Neutrophils # POC ABG pO2 ABG Hemoglobin ABG Oxyhemoglobin ABG Sodium ABG Glucose Carboxyhemoglobin Sodium Carbon Dioxide Glucose POC Glucose 431 H 386 H 339 H Hemoglobin A1c Calcium Iron Lactate Dehydrogenase C-Reactive Protein Total Protein Albumin Arterial Blood Glucose Lymph Enumerat CD4/CD8 % CD3 Cells % CD4 Cells Absolute CD4 Count % CD8 Cells Absolute CD19 Count HIV-1 RNA PCR copies/ml HIV-1 RNA (PCR) log 12/10/20 12/11/20 12/11/20 21:09 07:24 10:56 WBC RBC Hgb Hct MCV MCH Plt Count Lymph % (Auto) [place] % (Auto) [place] # (Auto) Seg Neutrophils % Seg Neutrophils # POC ABG pO2 ABG Hemoglobin ABG Oxyhemoglobin ABG Sodium ABG Glucose Carboxyhemoglobin Sodium Carbon Dioxide Glucose POC Glucose 412 H 399 H 431 H Hemoglobin A1c Calcium Iron Lactate Dehydrogenase C-Reactive Protein Total Protein Albumin Arterial Blood Glucose Lymph Enumerat CD4/CD8 % CD3 Cells % CD4 Cells Absolute CD4 Count % CD8 Cells Absolute CD19 Count HIV-1 RNA PCR copies/ml HIV-1 RNA (PCR) log 12/11/20 12/11/20 12/12/20 16:26 22:31 00:53 WBC RBC Hgb Hct MCV MCH Plt Count Lymph % (Auto) [place] % (Auto) [place] # (Auto) Seg Neutrophils % Seg Neutrophils # POC ABG pO2 ABG Hemoglobin ABG Oxyhemoglobin ABG Sodium ABG Glucose Carboxyhemoglobin Sodium Carbon Dioxide Glucose POC Glucose 320 H 361 H 255 H Hemoglobin A1c Calcium Iron Lactate Dehydrogenase C-Reactive Protein Total Protein Albumin Arterial Blood Glucose Lymph Enumerat CD4/CD8 % CD3 Cells % CD4 Cells Absolute CD4 Count % CD8 Cells Absolute CD19 Count HIV-1 RNA PCR copies/ml HIV-1 RNA (PCR) log 12/12/20 12/12/20 12/12/20 07:16 10:47 16:40 WBC RBC Hgb Hct MCV MCH Plt Count Lymph % (Auto) [place] % (Auto) [place] # (Auto) Seg Neutrophils % Seg Neutrophils # POC ABG pO2 ABG Hemoglobin ABG Oxyhemoglobin ABG Sodium ABG Glucose Carboxyhemoglobin Sodium Carbon Dioxide Glucose POC Glucose 171 H 156 H 146 H Hemoglobin A1c Calcium Iron Lactate Dehydrogenase C-Reactive Protein Total Protein Albumin Arterial Blood Glucose Lymph Enumerat CD4/CD8 % CD3 Cells % CD4 Cells Absolute CD4 Count % CD8 Cells Absolute CD19 Count HIV-1 RNA PCR copies/ml HIV-1 RNA (PCR) log 12/12/20 12/13/20 12/13/20 22:04 07:29 08:19 WBC RBC Hgb Hct MCV MCH Plt Count Lymph % (Auto) [place] % (Auto) [place] # (Auto) Seg Neutrophils % Seg Neutrophils # POC ABG pO2 ABG Hemoglobin ABG Oxyhemoglobin ABG Sodium ABG Glucose Carboxyhemoglobin Sodium Carbon Dioxide Glucose POC Glucose 214 H 211 H Hemoglobin A1c Calcium Iron Lactate Dehydrogenase C-Reactive Protein Total Protein Albumin Arterial Blood Glucose Lymph Enumerat CD4/CD8 0.02 L % CD3 Cells 90 H % CD4 Cells 2 L Absolute CD4 Count 22 L % CD8 Cells 88 H Absolute CD19 Count 72 L HIV-1 RNA PCR copies/ml HIV-1 RNA (PCR) log 12/13/20 12/13/20 12/13/20 08:19 11:09 11:23 WBC 13.3 H RBC Hgb 9.3 L Hct 29.6 L MCV 76 L MCH 24 L Plt Count 653 H Lymph % (Auto) [place] % (Auto) [place] # (Auto) 0.9 H Seg Neutrophils % 74.8 H Seg Neutrophils # 9.9 H POC ABG pO2 ABG Hemoglobin ABG Oxyhemoglobin ABG Sodium ABG Glucose Carboxyhemoglobin Sodium Carbon Dioxide Glucose POC Glucose 255 H Hemoglobin A1c Calcium Iron Lactate Dehydrogenase C-Reactive Protein Total Protein Albumin Arterial Blood Glucose Lymph Enumerat CD4/CD8 % CD3 Cells % CD4 Cells Absolute CD4 Count % CD8 Cells Absolute CD19 Count HIV-1 RNA PCR copies/ml 272282 H HIV-1 RNA (PCR) log 5.17 H 06/12/13/20 12/13/20 15:33 16:00 20:59 WBC RBC Hgb Hct MCV MCH Plt Count Lymph % (Auto) [place] % (Auto) [place] # (Auto) Seg Neutrophils % Seg Neutrophils # POC ABG pO2 70.0 L ABG Hemoglobin 10.4 L ABG Oxyhemoglobin 93.9 L ABG Sodium 131.5 L ABG Glucose 239 H Carboxyhemoglobin Sodium Carbon Dioxide Glucose POC Glucose 225 H 267 H Hemoglobin A1c Calcium Iron Lactate Dehydrogenase C-Reactive Protein Total Protein Albumin Arterial Blood Glucose 239 H Lymph Enumerat CD4/CD8 % CD3 Cells % CD4 Cells Absolute CD4 Count % CD8 Cells Absolute CD19 Count HIV-1 RNA PCR copies/ml HIV-1 RNA (PCR) log 12/14/20 12/14/20 12/14/20 07:15 07:15 07:41 WBC 11.5 H RBC 3.54 L Hgb 8.5 L Hct 26.5 L MCV 75 L MCH 24 L Plt Count 513 H Lymph % (Auto) [place] % (Auto) [place] # (Auto) Seg Neutrophils % Seg Neutrophils # POC ABG pO2 ABG Hemoglobin ABG Oxyhemoglobin ABG Sodium ABG Glucose Carboxyhemoglobin Sodium 134 L Carbon Dioxide Glucose 154 H POC Glucose 162 H Hemoglobin A1c Calcium Iron Lactate Dehydrogenase C-Reactive Protein Total Protein Albumin Arterial Blood Glucose Lymph Enumerat CD4/CD8 % CD3 Cells % CD4 Cells Absolute CD4 Count % CD8 Cells Absolute CD19 Count HIV-1 RNA PCR copies/ml HIV-1 RNA (PCR) log 12/14/20 12/14/20 12/14/20 11:58 17:16 21:07 WBC RBC Hgb Hct MCV MCH Plt Count Lymph % (Auto) [place] % (Auto) [place] # (Auto) Seg Neutrophils % Seg Neutrophils # POC ABG pO2 ABG Hemoglobin ABG Oxyhemoglobin ABG Sodium ABG Glucose Carboxyhemoglobin Sodium Carbon Dioxide Glucose POC Glucose 260 H 314 H 402 H Hemoglobin A1c Calcium Iron Lactate Dehydrogenase C-Reactive Protein Total Protein Albumin Arterial Blood Glucose Lymph Enumerat CD4/CD8 % CD3 Cells % CD4 Cells Absolute CD4 Count % CD8 Cells Absolute CD19 Count HIV-1 RNA PCR copies/ml HIV-1 RNA (PCR) log 12/15/20 12/15/20 12/15/20 07:33 11:13 17:09 WBC RBC Hgb Hct MCV MCH Plt Count Lymph % (Auto) [place] % (Auto) [place] # (Auto) Seg Neutrophils % Seg Neutrophils # POC ABG pO2 ABG Hemoglobin ABG Oxyhemoglobin ABG Sodium ABG Glucose Carboxyhemoglobin Sodium Carbon Dioxide Glucose POC Glucose 249 H 344 H 251 H Hemoglobin A1c Calcium Iron Lactate Dehydrogenase C-Reactive Protein Total Protein Albumin Arterial Blood Glucose Lymph Enumerat CD4/CD8 % CD3 Cells % CD4 Cells Absolute CD4 Count % CD8 Cells Absolute CD19 Count HIV-1 RNA PCR copies/ml HIV-1 RNA (PCR) log 12/15/20 12/16/20 12/16/20 21:34 07:06 07:06 WBC 14.7 H RBC 3.50 L Hgb 8.5 L Hct 26.3 L MCV 75 L MCH 24 L Plt Count 540 H Lymph % (Auto) 10.3 L [place] % (Auto) [place] # (Auto) 1.1 H Seg Neutrophils % 81.8 H Seg Neutrophils # 12.0 H POC ABG pO2 ABG Hemoglobin ABG Oxyhemoglobin ABG Sodium ABG Glucose Carboxyhemoglobin Sodium 135 L Carbon Dioxide 21 L Glucose POC Glucose 294 H Hemoglobin A1c Calcium Iron Lactate Dehydrogenase C-Reactive Protein Total Protein Albumin Arterial Blood Glucose Lymph Enumerat CD4/CD8 % CD3 Cells % CD4 Cells Absolute CD4 Count % CD8 Cells Absolute CD19 Count HIV-1 RNA PCR copies/ml HIV-1 RNA (PCR) log 12/16/20 12/16/20 12/16/20 11:16 16:34 22:05 WBC RBC Hgb Hct MCV MCH Plt Count Lymph % (Auto) [place] % (Auto) [place] # (Auto) Seg Neutrophils % Seg Neutrophils # POC ABG pO2 ABG Hemoglobin ABG Oxyhemoglobin ABG Sodium ABG Glucose Carboxyhemoglobin Sodium Carbon Dioxide Glucose POC Glucose 138 H 354 H 414 H Hemoglobin A1c Calcium Iron Lactate Dehydrogenase C-Reactive Protein Total Protein Albumin Arterial Blood Glucose Lymph Enumerat CD4/CD8 % CD3 Cells % CD4 Cells Absolute CD4 Count % CD8 Cells Absolute CD19 Count HIV-1 RNA PCR copies/ml HIV-1 RNA (PCR) log 12/17/20 12/17/20 12/17/20 11:05 17:36 21:41 WBC RBC Hgb Hct MCV MCH Plt Count Lymph % (Auto) [place] % (Auto) [place] # (Auto) Seg Neutrophils % Seg Neutrophils # POC ABG pO2 ABG Hemoglobin ABG Oxyhemoglobin ABG Sodium ABG Glucose Carboxyhemoglobin Sodium Carbon Dioxide Glucose POC Glucose 149 H 350 H 434 H Hemoglobin A1c Calcium Iron Lactate Dehydrogenase C-Reactive Protein Total Protein Albumin Arterial Blood Glucose Lymph Enumerat CD4/CD8 % CD3 Cells % CD4 Cells Absolute CD4 Count % CD8 Cells Absolute CD19 Count HIV-1 RNA PCR copies/ml HIV-1 RNA (PCR) log 12/18/20 12/18/20 12/18/20 07:10 11:13 16:09 WBC RBC Hgb Hct MCV MCH Plt Count Lymph % (Auto) [place] % (Auto) [place] # (Auto) Seg Neutrophils % Seg Neutrophils # POC ABG pO2 ABG Hemoglobin ABG Oxyhemoglobin ABG Sodium ABG Glucose Carboxyhemoglobin Sodium Carbon Dioxide Glucose POC Glucose 222 H 247 H 285 H Hemoglobin A1c Calcium Iron Lactate Dehydrogenase C-Reactive Protein Total Protein Albumin Arterial Blood Glucose Lymph Enumerat CD4/CD8 % CD3 Cells % CD4 Cells Absolute CD4 Count % CD8 Cells Absolute CD19 Count HIV-1 RNA PCR copies/ml HIV-1 RNA (PCR) log 12/18/20 12/19/20 12/19/20 21:44 07:30 08:34 WBC RBC Hgb Hct MCV MCH Plt Count Lymph % (Auto) [place] % (Auto) [place] # (Auto) Seg Neutrophils % Seg Neutrophils # POC ABG pO2 ABG Hemoglobin ABG Oxyhemoglobin ABG Sodium ABG Glucose Carboxyhemoglobin Sodium Carbon Dioxide Glucose 112 H POC Glucose 369 H 138 H Hemoglobin A1c Calcium Iron Lactate Dehydrogenase C-Reactive Protein Total Protein Albumin Arterial Blood Glucose Lymph Enumerat CD4/CD8 % CD3 Cells % CD4 Cells Absolute CD4 Count % CD8 Cells Absolute CD19 Count HIV-1 RNA PCR copies/ml HIV-1 RNA (PCR) log Allied health notes reviewed: nursing
[2020-12-19] MEDS: FLUCONAZOLE 200 MG TAB PO SCH (10:04)
[2020-12-19] MEDS: CHOLECALCIFEROL (VIT D3) 5,000 UNIT TAB PO SCH (10:05)
[2020-12-19] MEDS: FAMOTIDINE 20 MG TAB PO SCH ×2 (10:07→22:16)
[2020-12-19] MEDS: predniSONE 20 MG TAB PO SCH (10:07)
[2020-12-19] MEDS: ASCORBIC ACID 500 MG TAB PO SCH ×2 (10:07→22:16)
[2020-12-19] MEDS: ZINC SULFATE 220 MG CAP PO SCH (10:07)
[2020-12-19] MEDS: IPRATROPIUM/ALBUTEROL SULFATE 3 ML AMPUL.NEB IH SCH ×3 (10:10→21:06)
--- NOTE | 2020-12-19 12:07 | Progress Note ---
Assessment and Plan Cultures: Blood culture 12/06/2020 no growth 12/06/2020 urine culture: Usual skin korin 12/09/2020 1,3 [id number]: >500, strongly positive. 12/13/2020 blood culture: no growth 12/13/2020 BAL washings culture: Usual respiratory korin 12/13/2020 HIV RNA PCR: 148,000 12/13/2020 CD4: 22, (2%) A/P: 35 yo F PMHx HIV, Dm2, CHF admitted with SOB, myalgias. #Bilateral PNA: Status post bronchoscopy 12/12/2020, no gross endobronchial lesions were seen. Right lower lobe lung biopsy showed findings consistent with pneumocystis. BAL cytology also showed pneumocystis. As per discussion with patient, she reports good compliance with her HIV medications. She used to be undetectable. She also admits to vaping twice daily since August 2020. Vaping induced lung injury is another possibility. #Acute hypoxic respiratory failure: secondary to above. 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 Has outpatient ID doc. But evidence of thrush and PJP pneumonia, and CD4 is consistent with AIDS. Patient continues to state that she has been compliant with her meds but often she vomits the meds. HIV-1 genotype will help clarify whether she is resistant to the meds or noncompliant. #Oral candidiasis Recs: -continue IV Bactrim with adjunctive steroids, total treatment for 21 days -Continue fluconazole -While HIV genotype is pending, current ART is on hold Ashly Lindsay MD, FACP [facility] ([facility] O: [phone] F: [phone] Subjective Date of service: 12/19/20 Principal diagnosis: Sepsis; Ac hypoxemic resp failure; PJP Pneumonia; CHF; PUI COVID-19; HIV+ve Interval history: Afebrile. No new complaints. Remains on HFNC. Breathing slightly better. Objective - Exam Narrative Exam: Physical Exam: Constitutional: Alert, cooperative. No acute distress Head, Ears, Nose: Normocephalic, atraumatic. External ears, nose normal Eyes: Conjunctivae/corneas clear. No icterus. No ptosis. Neck: Supple, no meningeal signs Oral: Thrush + Cardiovascular: S1, S2 normal. Respiratory: Bilateral crackles GI: Soft, non-tender; bowel sounds normal. No peritoneal signs Musculoskeletal: No pedal edema, no cyanosis. Skin: No rash or abscess Hem/Lymphatic: No palpable cervical or supraclavicular nodes. No lymphangitis Psych: Mood ok. Affect normal Neurological: Awake, alert, oriented. No gross abnormality - Constitutional Vitals: Vital Signs Temp Pulse Resp BP Pulse Ox 98.6 F 100 H 20 109/66 94 12/19/20 08:00 12/19/20 10:13 12/19/20 10:13 12/19/20 08:00 12/19/20 08:00 Temperature -Last 24 Hours Temperature 98.6 F Temperature 98.2 F Temperature 97.9 F Temperature 98.2 F - Labs CBC & Chem 7: 12/16/20 07:06 12/19/20 08:34 Labs: Abnormal lab results 12/18/20 12/18/20 12/19/20 Range/Units 16:09 21:44 07:30 Glucose (65-100) mg/dL POC Glucose 285 H 369 H 138 H (70-105) mg/dL 12/19/20 12/19/20 Range/Units 08:34 11:49 Glucose 112 H (65-100) mg/dL POC Glucose 187 H (70-105) mg/dL
[2020-12-20] MEDS: oxyCODONE /ACETAMINOPHEN 5-325MG TAB PO PRN (02:13)
[2020-12-20] MEDS: WATER IV SCH ×3 (03:36→18:09)
[2020-12-20] MEDS: SMX IV SCH ×3 (03:36→18:09)
[2020-12-20] MEDS: DEXTROSE 5% IV SCH ×3 (03:36→18:09)
[2020-12-20] MEDS: TMP IV SCH ×3 (03:36→18:09)
[2020-12-20] MEDS: INSULIN LISPRO 100 UNIT/ML SUB-Q SCH ×4 (07:30→23:06)
[2020-12-20] MEDS: INSULIN GLARGINE 100 UNITS/ML SUB-Q SCH (08:00)
--- NOTE | 2020-12-20 08:09 | Progress Note ---
Assessment and Plan Assessment and plan: (1) Sepsis with acute hypoxic respiratory failure Current Visit: Yes Status: Acute Qualifiers: Severe sepsis shock status: unspecified Plan to address problem: Supplemental oxygen and keep the oxygen saturations above 92 Possible Covid pneumonia Treat for bilateral pneumonia and Covid pneumonia (2) Bilateral pneumonia Current Visit: Yes Status: Acute Plan to address problem: Treated as community-acquired pneumonia Coronavirus PCR requested IV Decadron initiated ID consult requested (3) CHF (congestive heart failure) Current Visit: No Status: Chronic Qualifiers: Heart failure type: combined systolic and diastolic Plan to address problem: Cardiogram for ejection fraction IV Lasix 40 mg every 24 (4) Person under investigation for COVID-19 Current Visit: Yes Status: Acute Plan to address problem: Coronavirus PCR requested IV Decadron initiated Zinc vitamin C and vitamin D initiated (5) HIV (human immunodeficiency virus infection) Current Visit: Yes Status: Chronic Qualifiers: HIV symptom status: asymptomatic, with no history of HIV-related illness Qualified Code(s): Z21 - Asymptomatic human immunodeficiency virus [HIV] inf ection status Plan to address problem: Patient on Zithromax (6) T2DM (type 2 diabetes mellitus) Current Visit: Yes Status: Chronic Qualifiers: 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 Plan to address problem: Check hemoglobin A1c Accu-Cheks AC at bedtime Coverage as per moderate dose sliding scale Continue Metformin (7) DVT prophylaxis Current Visit: Yes Status: Acute Plan to address problem: On Lovenox and GI prophylaxis (8) Anemia Current Visit: Yes Status: Chronic Qualifiers: Anemia type: iron deficiency Plan to address problem: Probable iron deficiency anemia: Check iron levels B12 and folic acid (9) DVT prophylaxis Current Visit: No Status: Acute Plan to address problem: Lovenox and GI prophylaxis 12/07/2020 -COVID-19 test is pending -Continue with IV antibiotics for now, follow procalcitonin level -ID consulted. -Patient's hemoglobin A1c is 8.2 -HIV; patient will follow with ID 12/08/2020 -CTA showed worsening of her groundglass opacities -COVID-19 test was negative -ID consulted and recommend to continue with antibiotics for now -Patient is on her HIV medications -Patient will oxygen saturation dropped to 85% on ambulation and patient require oxygen at discharge -I put a consult for pulmonary 12/09/2020 -Patient's proBNP is normal, pulmonary ordered echo. Patient states she has history of CHF and told me she was diagnosed in this hospital but I check her r ecords and there is no echo report. -Home oxygen arranged. 12/10/2020 -Echo showed no CHF. Patient was seen by ID and started the patient on Bactrim for suspected PCP, and fluconazole for oral candidiasis. We going to follow Fungitell and induced sputum for PCP. Patient has hyperglycemia and added 15 units of Lantus, change Solu-Medrol to prednisone 40 mg daily. Disposition is per pulmonary and ID recommendation 12/11/2020; patient is on Bactrim and fluconazole per ID recommendation. Patient is on steroid per pulmonary recommendation. Induced sputum for PCP was ordered but there was no collected, in detail was ordered. Patient's blood sugar is uncontrolled and I increase Lantus from 15 to 25 units, change sliding scale from moderate to high dose. Continue to monitor and adjust as needed. Disposition is per pulmonary and ID recommendation. Pulmonary evaluated and recommendations as follows: Patient has been scheduled for bronchoscopy with TBBx, cytology brushings, BAL tomorrow at 1pm. Patient is NPO from midnight. Enoxaparin has been stopped. Start D51/2Nsaline at midnight. 12/12: Still with generalized body pain, Bronch today, Will monitor, Pain control. lethargic, awaiting 12/13: Continue supportive care, ID input noted, patient is post Bronchosocpy 12/12- Awaiting microdata and serologies. CONTINUE PAIN CONTROL 12/14: Patient noted with worsening respiratory distress and hypoxia, chest x-ray otherwise shows improvement in symptoms. I encouraged the patient to prone herself during hours of sleep. To use pillows across her chest with deep br eaths and practice incentive spirometer. We will continue to monitor wean oxygen as tolerated. Continue awaiting cultures from recent bronchscopy 12/15/20 patient is seen and examined. shortness of breath is same. But patient is coughing. Chest x-ray shows improvement in the appearance in ir rigation throughout the both lung as compared to previous exam. Continue Bactrim IV every 8 hours, prednisone 40 mg p.o. daily. Follow-up BAL culture for fungi, AFB. Follow-up HIV RNA PCR, CD4 count. ID consult. Continue current management. Recheck CBC in the morning. Out of bed to chair and PT evaluation. 12/16/20 patient seen and examined. Lab and medication reviewed.Patient is on high flow oxygen nasal cannula 18 L/min FiO2 70%. Patient feels better compared to yesterday. Decreased shortness of breath. Mild coughing. Continue Bactrim IV every 8 hours, prednisone 40 mg p.o. daily. Follow-up BAL culture for fungi, AFB. Follow-up HIV RNA PCR, CD4 count. ID consult. Continue current management. Recheck CBC in the morning. Out of bed to chair and PT evaluation. 12/17: Patient remains critically ill. Still on high flow oxygen FiO2 70% saturating 94%. Will transfer patient to [facility]. Continue to encourage prone positioning, also encourage incentive spirometer. Pulmonary following. She states that Bactrim was making her sick and she had refused but will defer to ID to see if any changes will be made. We will also obtain a GI evaluation as she states that she has not been able to tolerate diet. This will be to help evaluate for any esophageal disorder secondary to Immunocompromised condition. 12/18: Patient down to 50% Fio2, with saturation of 96%, states she is feeling better some what. Will continue to encourage ambulation and PT. Monitor Oxygen levels. Continue supportive care. 12/19; patient is on 18 L of high flow oxygen, with FiO2 of 50%. Continue with Bactrim and steroids for pneumocystis pneumonia. Imaging and bronchial wash is consistent with pneumocystis pneumonia ID and pulmonary consult appreciated. Patient can be discharged to the floor. Management plan was discussed with the patient and was in agreement with the plan of care. 12/20/2020; patient states she is breathing better. Patient is on high flow oxygen at 15 L with FiO2 50%. I do recommend to continue with IV Bactrim for PJP. Continue fluconazole. History Interval history: Patient was seen and evaluated this morning Patient states she is feeling better today Patient is on 15 L of high flow oxygen with FiO2 of 50% Hospitalist Physical - Physical exam Narrative exam: Not in cardiopulmonary distress. The patient appeared well nourished and normally developed. Vital signs as documented. Head exam is unremarkable. Patient has oral thrush No scleral icterus . Neck is without jugular venous distension, thyromegaly, or carotid bruits. Lungs scattered wheezing. Cardiac exam reveals regular rate and Rhythm. Abdominal exam reveals normal bowel sounds, nontender, no organomegaly. Extremities are nonedematous and both femoral and pedal pulses are normal. 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 No focal weakness. - Constitutional Vitals: Temp Pulse Resp BP Pulse Ox 98.1 F 102 H 17 128/74 99 12/19/20 20:00 12/20/20 04:00 12/20/20 03:13 12/19/20 21:01 12/20/20 01:45 General appearance: Present: mild distress, well-nourished HEART Score - HEART Score Troponin: Troponin T < 0.010 ng/mL (0.00-0.029) 12/06/20 14:04 Results - Labs CBC & Chem 7: 12/16/20 07:06 12/19/20 08:34 Labs: Laboratory Last Values WBC 14.7 K/mm3 (4.5-11.0) H 12/16/20 07:06 RBC 3.50 M/mm3 (3.65-5.03) L 12/16/20 07:06 Hgb 8.5 gm/dl (10.1-14.3) L 12/16/20 07:06 Hct 26.3 % (30.3-42.9) L 12/16/20 07:06 MCV 75 fl (79-97) L 12/16/20 07:06 MCH 24 pg (28-32) L 12/16/20 07:06 MCHC 32 % (30-34) 12/16/20 07:06 RDW 14.4 % (13.2-15.2) 12/16/20 07:06 Plt Count 540 K/mm3 (140-440) H 12/16/20 07:06 Lymph % (Auto) 10.3 % (13.4-35.0) L 12/16/20 07:06 [place] % (Auto) 7.3 % (0.0-7.3) 12/16/20 07:06 Eos % (Auto) 0.5 % (0.0-4.3) 12/16/20 07:06 Baso % (Auto) 0.1 % (0.0-1.8) 12/16/20 07:06 Lymph # (Auto) 1.5 K/mm3 (1.2-5.4) 12/16/20 07:06 [place] # (Auto) 1.1 K/mm3 (0.0-0.8) H 12/16/20 07:06 Eos # (Auto) 0.1 K/mm3 (0.0-0.4) 12/16/20 07:06 Baso # (Auto) 0.0 K/mm3 (0.0-0.1) 12/16/20 07:06 Seg Neutrophils % 81.8 % (40.0-70.0) H 12/16/20 07:06 Seg Neutrophils # 12.0 K/mm3 (1.8-7.7) H 12/16/20 07:06 Abs Lymphs (Manual) 1273 cells/uL (850-3900) 12/13/20 08:19 D-Dimer 185.58 ng/mlDDU (0-234) 12/06/20 15:24 ABG pH 7.441 (7.320-7.450) 12/13/20 15:33 POC ABG pCO2 33.7 mmHg (32.0-48.0) 12/13/20 15:33 POC ABG pO2 70.0 mmHg (83-108) L 12/13/20 15:33 POC ABG HCO3 22.4 12/13/20 15:33 ABG O2 Saturation 94.9 (0-100) 12/13/20 15:33 POC ABG Base Excess -1.2 12/13/20 15:33 ABG Hemoglobin 10.4 (12.0-17.5) L 12/13/20 15:33 ABG Oxyhemoglobin 93.9 (94-98) L 12/13/20 15:33 ABG Methemoglobin 0.3 (0.0-1.5) 12/13/20 15:33 ABG Sodium 131.5 mmol/L (136.0-145.0) L 12/13/20 15:33 ABG Potassium 4.0 mmol/L (3.40-4.50) 12/13/20 15:33 ABG Chloride 100.0 mmol/L (98-107) 12/13/20 15:33 ABG Glucose 239 mg/dL (65-95) H 12/13/20 15:33 Carboxyhemoglobin 0.8 (0.5-1.5) 12/13/20 15:33 FiO2 % 40.0 12/13/20 15:33 Sodium 137 mmol/L (137-145) 12/19/20 08:34 Potassium 4.3 mmol/L (3.6-5.0) 12/19/20 08:34 Chloride 102.0 mmol/L (98-107) 12/19/20 08:34 Carbon Dioxide 24 mmol/L (22-30) 12/19/20 08:34 Anion Gap 15 mmol/L 12/19/20 08:34 BUN 7 mg/dL (7-17) 12/19/20 08:34 Creatinine 0.7 mg/dL (0.6-1.2) 12/19/20 08:34 Estimated GFR > 60 ml/min 12/19/20 08:34 BUN/Creatinine Ratio 10 % 12/19/20 08:34 Glucose 112 mg/dL (65-100) H 12/19/20 08:34 POC Glucose 381 mg/dL (70-105) H 12/19/20 21:15 Hemoglobin A1c 8.2 % (4-6) H 12/07/20 02:12 Lactic Acid 1.10 mmol/L (0.7-2.0) 12/06/20 23:55 Calcium 9.1 mg/dL (8.4-10.2) 12/19/20 08:34 Iron 22 ug/dL (37-170) L 12/07/20 07:28 TIBC 341 mcg/dL (250-450) 12/07/20 07:28 % Saturation 6.45 % 12/07/20 07:28 Transferrin 292 mg/dl (192-382) 12/07/20 07:28 Ferritin 40.7 ng/mL (10.0-200.0) 12/06/20 15:24 Total Bilirubin 0.40 mg/dL (0.1-1.2) 12/07/20 02:12 AST 26 units/L (5-40) 12/07/20 02:12 ALT 9 units/L (7-56) 12/07/20 02:12 Alkaline Phosphatase 94 units/L (35-129) 12/07/20 02:12 Lactate Dehydrogenase 273 units/L (91-180) H 12/09/20 13:32 Troponin T < 0.010 ng/mL (0.00-0.029) 12/06/20 14:04 C-Reactive Protein 7.10 mg/dL (0.00-1.30) H 12/06/20 15:24 NT-Pro-B Natriuret Pep 150.7 pg/mL (0-450) 12/09/20 00:43 Total Protein 8.3 g/dL (6.3-8.2) H 12/07/20 02:12 Albumin 3.2 g/dL (3.9-5) L 12/07/20 02:12 Albumin/Globulin Ratio 0.6 % 12/07/20 02:12 Vitamin B12 304.1 pg/mL (211-911) 12/07/20 07:28 RBC Folic Acid 711 ng/mL (>280) 12/07/20 07:28 Procalcitonin < 0.05 ng/mL (<0.15) 12/06/20 15:24 HCG, Qual Negative (Negative) 12/06/20 14:04 Arterial Blood Glucose 239 mg/dL (65-95) H 12/13/20 15:33 Arterial Blood Ionized Calcium 4.7 mg/dL (4.6-5.3) 12/13/20 15:33 Urine Color Yellow (Yellow) 12/07/20 Unknown Urine Turbidity Clear (Clear) 12/07/20 Unknown Urine pH 7.0 (5.0-7.0) 12/07/20 Unknown Ur Specific [place] 1.017 (1.003-1.030) 12/07/20 Unknown Urine Protein <15 mg/dl mg/dL (Negative) 12/07/20 Unknown Urine Glucose (UA) 150 mg/dL (Negative) 12/07/20 Unknown Urine Ketones Neg mg/dL (Negative) 12/07/20 Unknown Urine Blood Neg (Negative) 12/07/20 Unknown Urine Nitrite Neg (Negative) 12/07/20 Unknown Urine Bilirubin Neg (Negative) 12/07/20 Unknown Urine Urobilinogen 2.0 mg/dL (<2.0) 12/07/20 Unknown Ur Leukocyte Esterase Neg (Negative) 12/07/20 Unknown Urine WBC (Auto) < 1.0 /HPF (0.0-6.0) 12/07/20 Unknown Urine RBC (Auto) 1.0 /HPF (0.0-6.0) 12/07/20 Unknown U Epithel Cells (Auto) 6.0 /HPF (0-13.0) 12/07/20 Unknown DELFINO Screen Negative (Negative) 12/09/20 00:43 Lymph Enumerat CD4/CD8 0.02 (0.86-5.00) L 12/13/20 08:19 % CD3 Cells 90 % (57-85) H 12/13/20 08:19 Absolute CD3 Count 1149 cells/uL (840-3060) 12/13/20 08:19 % CD4 Cells 2 % (30-61) L 12/13/20 08:19 Absolute CD4 Count 22 cells/uL (490-1740) L 12/13/20 08:19 % CD8 Cells 88 % (12-42) H 12/13/20 08:19 Absolute CD8 Count 1087 cells/uL (180-1170) 12/13/20 08:19 % CD19 Cells 6 % (6-29) 12/13/20 08:19 Absolute CD19 Count 72 cells/uL (110-660) L 12/13/20 08:19 Coronavirus (PCR) Negative (Negative) 12/06/20 08:46 HIV-1 RNA PCR copies/ml [id number] Copies/mL H 12/13/20 08:19 HIV-1 RNA (PCR) log 5.17 Log cps/mL H 12/13/20 08:19 AFB Identification 12/13/20 Unknown AFB Identification 12/13/20 Unknown Fungal Id Prelim 12/13/20 Unknown Santiago/IV: Voiding Method Bedside Commode Active Medications - Current Medications Current Medications: Generic Name Dose Route Start Last Admin Trade Name Freq PRN Reason Stop Dose Admin Acetaminophen 650 mg 12/06/20 21:36 Acetaminophen 325 Mg Tab PO Q4H PRN Pain MILD(1-3)/Fever >100.5/RODRIGUES Albuterol/Ipratropium 1 ampul 12/07/20 08:00 12/19/20 21:06 Ipratropium/Albuterol Sulfate 3 Ml Ampul.Neb IH 1 ampul TIDRT DARYA Administration Ascorbic Acid 1,000 mg 12/06/20 22:00 12/19/20 22:16 Ascorbic Acid 500 Mg Tab PO 1,000 mg BID DARYA Administration Cholecalciferol 5,000 unit 12/06/20 22:00 12/19/20 10:05 Cholecalciferol (Vit D3) 5,000 Unit Tab PO 5,000 unit DAILY DARYA Administration Famotidine 20 mg 12/06/20 22:00 12/19/20 22:16 Famotidine 20 Mg Tab PO 20 mg BID DARYA Administration Fluconazole 200 mg 12/09/20 13:00 12/19/20 10:04 Fluconazole 200 Mg Tab PO 200 mg QDAY DARYA Administration Protocol Guaifenesin 200 mg 12/06/20 23:59 12/17/20 06:18 Guaifenesin 100 Mg/5 Ml Oral Liqd PO 200 mg Q8H PRN Administration Cough Trimethoprim/Sulfamethoxazole 528.125 mls @ 350 mls/hr 12/14/20 10:00 12/20/20 03:36 450 mg/ Dextrose IV 12/21/20 03:31 350 mls/hr Q8H DARYA Administration Protocol Insulin Glargine 25 units 12/12/20 08:00 12/19/20 08:39 Insulin Glargine 100 Units/Ml SUB-Q 25 units QAMDIAB DARYA Administration Insulin Human Lispro 0 unit 12/09/20 22:00 12/19/20 22:17 Insulin Lispro 100 Unit/Ml SUB-Q 10 unit ACHS DARYA Administration Protocol Metformin HCl 500 mg 12/06/20 21:30 12/19/20 08:39 Metformin Xr 500mg Tab PO 500 mg QAMDIAB DARYA Administration Metoclopramide HCl 10 mg 12/06/20 21:36 12/19/20 17:45 Metoclopramide 10 Mg/2 Ml Inj IV 10 mg Q6H PRN Administration Nausea And Vomiting Morphine Sulfate 2 mg 12/12/20 14:28 12/18/20 08:38 Morphine 2 Mg/1 Ml Inj IV 2 mg Q4H PRN Administration Pain, Moderate (4-6) Nystatin 100,000 unit 12/17/20 14:00 12/19/20 20:13 Nystatin 500,000 Unit/5 Ml Oral Liqd PO 100,000 unit TID DARYA Administration Ondansetron HCl 4 mg 12/17/20 11:03 12/19/20 17:45 Ondansetron 4 Mg/2 Ml Inj IV 4 mg Q4H PRN Administration Nausea And Vomiting Oxycodone/Acetaminophen 2 tab 12/07/20 18:00 12/20/20 02:13 Oxycodone /Acetaminophen 5-325mg Tab PO 2 tab Q6H PRN Administration Pain, Moderate (4-6) Polyethylene Glycol 17 gm 12/11/20 18:05 12/11/20 18:24 Polyethylene Glycol 3350 17 Gm Powder PO 17 gm QDAY PRN Administration Constipation Prednisone 40 mg 12/16/20 10:00 12/19/20 10:07 Prednisone 20 Mg Tab PO 12/20/20 10:01 40 mg QDAY DARYA Administration Prednisone 20 mg 12/21/20 10:00 Prednisone 10 Mg Tab PO 12/31/20 10:01 QDAY DARYA Sodium Chloride 10 ml 12/06/20 22:00 12/19/20 22:17 Sodium Chloride 0.9% 10 Ml Flush Syringe IV 10 ml BID DARYA Administration Sodium Chloride 10 ml 12/06/20 21:36 12/17/20 10:44 Sodium Chloride 0.9% 10 Ml Flush Syringe IV 10 ml PRN PRN Administration LINE FLUSH Tramadol HCl 50 mg 12/06/20 21:21 Tramadol 50 Mg Tab PO Q8H PRN PAIN (4-6) Zinc Sulfate 220 mg 12/17/20 10:00 12/19/20 10:07 Zinc Sulfate 220 Mg Cap PO 220 mg DAILY DARYA Administration Zolpidem Tartrate 5 mg 12/07/20 22:00 12/16/20 21:51 Zolpidem 5 Mg Tab PO 5 mg QHS PRN Administration Sleep Nutrition/Malnutrition Assess - Dietary Evaluation Nutrition/Malnutrition Findings: Nutrition Notes Start: 12/07/20 15:58 Freq: Status: Active Protocol: Document 12/15/20 11:46 LM (Rec: 12/15/20 12:00 LM [id number]) Nutrition Notes Initial or Follow up Reassessment Current Diagnosis Diabetes,Sepsis,Heart Failure, Respiratory Failure Other Pertinent Diagnosis pneu Current Diet Consistent CHO, vegetarian Labs/Tests POC 249 Pertinent Medications Metformin Humalog Lantus NS at 100ml/hr Height 5 ft 7 in Weight 87 kg [place] Body Weight (kg) 61.36 BMI 30.0 Weight Status Obese Subjective/Other Information Pt stated she ate 75% of breakfast and drank Glucerna. Pt stated she would like broth or soup due to having stomach ache. Percent of energy/protein needs met: 100%/100% (PO and ONS) Burn Absent Trauma Absent Current % PO Good (75-100%) Minimum of two criteria No physical signs of malnutrition #1 Nutrition Diagnosis Inadequate oral intake As Evidenced by Signs and Symptoms Pt eating 75% Diagnosis Progress(for reassessment Improved documentation) Is patient on ventilator? No Is Patient Ambulatory and/or Out of Bed No REE-([facility]-confined to bed) 1925.376 Kcal/Kg value to use for calculation 19 Approximate Energy Requirements Using 1653 kcal/Kg Additional Notes Protein: (0.8-1g/kg AdjBW: 75kg) 60-75g Fluid: 1ml/kcal or per MD Nutrition Intervention Change Diet Order: Continue Add Supplement/Snack (indicate name/kcal Glucerna BID /protein ) Provides kCal: 440 Provides Protein (gm) 20 Goal #1 Meet at least 75% of protein and energy needs Follow-Up By: 12/21/20 Additional Comments F/U for stable PO intakes, ONS
[2020-12-20] MEDS: IPRATROPIUM/ALBUTEROL SULFATE 3 ML AMPUL.NEB IH SCH ×3 (08:44→20:46)
[2020-12-20] MEDS: NYSTATIN 500,000 UNIT/5 ML ORAL LIQD PO SCH ×3 (09:29→21:37)
[2020-12-20] MEDS: CHOLECALCIFEROL (VIT D3) 5,000 UNIT TAB PO SCH (09:33)
[2020-12-20] MEDS: metFORMIN XR 500MG TAB PO SCH (09:33)
[2020-12-20] MEDS: FAMOTIDINE 20 MG TAB PO SCH ×2 (09:34→21:39)
[2020-12-20] MEDS: predniSONE 20 MG TAB PO SCH (09:34)
[2020-12-20] MEDS: ASCORBIC ACID 500 MG TAB PO SCH ×2 (09:35→21:39)
[2020-12-20] MEDS: ZINC SULFATE 220 MG CAP PO SCH (09:35)
[2020-12-20] MEDS: FLUCONAZOLE 200 MG TAB PO SCH (09:35)
--- NOTE | 2020-12-20 11:30 | Progress Note ---
Assessment and Plan Cultures: Blood culture 12/06/2020 no growth 12/06/2020 urine culture: Usual skin korin 12/09/2020 1,3 [id number]: >500, strongly positive. 12/13/2020 blood culture: no growth 12/13/2020 BAL washings culture: Usual respiratory korin 12/13/2020 HIV RNA PCR: 148,000 12/13/2020 CD4: 22, (2%) A/P: 35 yo F PMHx HIV, Dm2, CHF admitted with SOB, myalgias. #Bilateral PNA: Status post bronchoscopy 12/12/2020, no gross endobronchial lesions were seen. Right lower lobe lung biopsy showed findings consistent with pneumocystis. BAL cytology also showed pneumocystis. As per discussion with patient, she reports good compliance with her HIV medications. She used to be undetectable. She also admits to vaping twice daily since August 2020. Vaping induced lung injury is another possibility. #Acute hypoxic respiratory failure: secondary to above. 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 Has outpatient ID doc. But evidence of thrush and PJP pneumonia, and CD4 is consistent with AIDS. Patient continues to state that she has been compliant with her meds but often she vomits the meds. HIV-1 genotype will help clarify whether she is resistant to the meds or noncompliant. #Oral candidiasis Recs: -continue IV Bactrim with adjunctive steroids, total treatment for 21 days -Continue fluconazole for thrush -While HIV genotype is pending, current ART is on hold due to concerns for possible resistant HIV -patient wants to change her HIV provider, wishes to follow up with us, will set up follow up appointment post discharge Ashly Lindsay MD, FACP [facility] O: [phone] F: [phone] Subjective Date of service: 12/20/20 Principal diagnosis: Sepsis; Ac hypoxemic resp failure; PJP Pneumonia; CHF; PUI COVID-19; HIV+ve Interval history: Afebrile. No new complaints. Remains on HFNC. Breathing slightly better. Was moved to floor. Objective - Exam Narrative Exam: Physical Exam: Constitutional: Alert, cooperative. No acute distress Head, Ears, Nose: Normocephalic, atraumatic. External ears, nose normal Eyes: Conjunctivae/corneas clear. No icterus. No ptosis. Neck: Supple, no meningeal signs Oral: Thrush + Cardiovascular: S1, S2 normal. Respiratory: Bilateral crackles GI: Soft, non-tender; bowel sounds normal. No peritoneal signs Musculoskeletal: No pedal edema, no cyanosis. Skin: No rash or abscess Hem/Lymphatic: No palpable cervical or supraclavicular nodes. No lymphangitis Psych: Mood ok. Affect normal Neurological: Awake, alert, oriented. No gross abnormality - Constitutional Vitals: Vital Signs Temp Pulse Resp BP Pulse Ox 98.1 F 102 H 17 128/74 99 12/19/20 20:00 12/20/20 04:00 12/20/20 03:13 12/19/20 21:01 12/20/20 01:45 Temperature -Last 24 Hours Temperature 98.1 F Temperature 98 F Temperature 98.5 F Temperature 98.5 F - Labs CBC & Chem 7: 12/16/20 07:06 12/19/20 08:34 Labs: Abnormal lab results 12/19/20 12/19/20 12/19/20 Range/Units 11:49 17:14 21:15 POC Glucose 187 H 385 H 381 H (70-105) mg/dL 12/20/20 12/20/20 Range/Units 08:06 10:54 POC Glucose 267 H 241 H (70-105) mg/dL
[2020-12-20] MEDS: POLYETHYLENE GLYCOL 3350 17 GM POWDER PO PRN (14:12)
--- NOTE | 2020-12-20 14:30 | Progress Note ---
Assessment and Plan Patient alert, awake. Patient is still on vapotherm, FIO2 40% and O2 saturation 94%. Says shortness of breath is better. No complaint of chest pain. Patient afebrile. Has leukocytosis. Patient has CTA of chest 12/06/20 reported No PE. Worsening bilateral ground glass opacities. Paiient Undergone bronchoscopy . Bronchoscopy specimen results positive for Pneumocystis. Chest xray done 12/13/20 reported improvement in appearence of chest compare to previous chest xray. Patient is on Prednisone, bactrim,Fluconazole. albuterol/atrovent aerosol treatments, Famotidine. - Patient Problems (1) Bilateral pneumonia Current Visit: Yes Status: Acute Plan to address problem: Bronchoscopy specimen reported positive for pneumocystis. Patient is on bactrim DS and Fluconazole. on Vapotherm, FIO2 40%. (2) History of HIV or AIDS Current Visit: Yes Status: Acute Plan to address problem: Management as per infectious diseases. (3) Person under investigation for COVID-19 Current Visit: Yes Status: Acute Plan to address problem: Patient [place] virus PCR negative. (4) T2DM (type 2 diabetes mellitus) Current Visit: Yes Status: Chronic Qualifiers: Diabetes mellitus manager 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 insulin use: unspecified [facility] insulin use status Plan to address problem: Management as per primary care. (5) Atrial fibrillation with RVR Current Visit: No Status: Acute Plan to address problem: Management as per cardiology. (6) CHF (congestive heart failure) Current Visit: No Status: Chronic Qualifiers: Heart failure type: combined systolic and diastolic Plan to address problem: Management as per cardiology. Subjective Date of service: 12/20/20 Principal diagnosis: Sepsis; Ac hypoxemic resp failure; PJP Pneumonia; CHF; PUI COVID-19; HIV+ve Interval history: Patient alert, awake. Patient is still on vapotherm, FIO2 40% and O2 saturation 94%. Says shortness of breath is better. No complaint of chest pain. Patient afebrile. Has leukocytosis. Patient has CTA of chest 12/06/20 reported No PE. Worsening bilateral ground glass opacities. Paiient Undergone bronchoscopy . Bronchoscopy specimen results positive for Pneumocystis. Chest xray done 12/13/20 reported improvement in appearence of chest compare to previous chest xray. Patient is on Prednisone, bactrim,Fluconazole. albuterol/atrovent aerosol treatments, Famotidine. Objective Vital Signs - 12hr 12/20/20 12/20/20 12/20/20 03:13 04:00 10:56 Temperature 98.2 F Pulse Rate 102 H 100 H Respiratory 17 18 Rate Blood Pressure 139/87 O2 Sat by Pulse 93 Oximetry Constitutional: no acute distress, alert, other (young female with mildly increased respiratory effort at rest ) Eyes: non-icteric ENT: oropharynx moist, other (oral candidiasis) Neck: supple, no lymphadenopathy, no JVD Effort: mildly labored Ascultation: Bilateral: diminished breath sounds, rales (faint in bases), rhonchi Percussion: Bilateral: not dull Cardiovascular: regular rate and rhythm, other (S1,S2) Gastrointestinal: normoactive bowel sounds, soft, non-tender, non-distended Integumentary: normal Extremities: no cyanosis, no edema, pulses normal, no ischemia or petechiae Neurologic: normal mental status, non-focal exam, pupils equal and round, CN II- XII normal, motor strength normal and (but wekness) Psychiatric: mood appropriate, affect normal CBC and BMP: 12/16/20 07:06 12/19/20 08:34 ABG, PT/INR, D-dimer: ABG ABG pH 7.441 (7.320-7.450) 12/13/20 15:33 POC ABG pCO2 33.7 mmHg (32.0-48.0) 12/13/20 15:33 POC ABG pO2 70.0 mmHg (83-108) L 12/13/20 15:33 POC ABG HCO3 22.4 12/13/20 15:33 ABG O2 Saturation 94.9 (0-100) 12/13/20 15:33 PT/INR, D-dimer D-Dimer 185.58 ng/mlDDU (0-234) 12/06/20 15:24 Abnormal lab findings: Abnormal Labs 12/06/20 12/06/20 12/06/20 14:04 14:04 15:24 WBC RBC 3.57 L Hgb 8.8 L Hct 27.3 L MCV 76 L MCH 25 L Plt Count Lymph % (Auto) [place] % (Auto) 8.5 H [place] # (Auto) Seg Neutrophils % Seg Neutrophils # POC ABG pO2 ABG Hemoglobin ABG Oxyhemoglobin ABG Sodium ABG Glucose Carboxyhemoglobin Sodium 136 L Carbon Dioxide Glucose 149 H POC Glucose Hemoglobin A1c Calcium Iron Lactate Dehydrogenase 418 H C-Reactive Protein 7.10 H Total Protein 8.6 H Albumin 2.9 L Arterial Blood Glucose Lymph Enumerat CD4/CD8 % CD3 Cells % CD4 Cells Absolute CD4 Count % CD8 Cells Absolute CD19 Count HIV-1 RNA PCR copies/ml HIV-1 RNA (PCR) log 12/07/20 12/07/20 12/07/20 02:12 02:12 02:12 WBC RBC 3.61 L Hgb 9.2 L Hct 27.8 L MCV 77 L MCH 26 L Plt Count Lymph % (Auto) [place] % (Auto) 9.4 H [place] # (Auto) Seg Neutrophils % Seg Neutrophils # POC ABG pO2 ABG Hemoglobin ABG Oxyhemoglobin ABG Sodium ABG Glucose Carboxyhemoglobin Sodium Carbon Dioxide Glucose 123 H POC Glucose Hemoglobin A1c 8.2 H Calcium 8.3 L Iron Lactate Dehydrogenase C-Reactive Protein Total Protein 8.3 H Albumin 3.2 L Arterial Blood Glucose Lymph Enumerat CD4/CD8 % CD3 Cells % CD4 Cells Absolute CD4 Count % CD8 Cells Absolute CD19 Count HIV-1 RNA PCR copies/ml HIV-1 RNA (PCR) log 12/07/20 12/07/20 12/07/20 07:28 07:48 11:48 WBC RBC Hgb Hct MCV MCH Plt Count Lymph % (Auto) [place] % (Auto) [place] # (Auto) Seg Neutrophils % Seg Neutrophils # POC ABG pO2 ABG Hemoglobin ABG Oxyhemoglobin ABG Sodium ABG Glucose Carboxyhemoglobin Sodium Carbon Dioxide Glucose POC Glucose 290 H 217 H Hemoglobin A1c Calcium Iron 22 L Lactate Dehydrogenase C-Reactive Protein Total Protein Albumin Arterial Blood Glucose Lymph Enumerat CD4/CD8 % CD3 Cells % CD4 Cells Absolute CD4 Count % CD8 Cells Absolute CD19 Count HIV-1 RNA PCR copies/ml HIV-1 RNA (PCR) log 12/07/20 12/07/20 12/08/20 16:46 22:36 08:50 WBC RBC Hgb Hct MCV MCH Plt Count Lymph % (Auto) [place] % (Auto) [place] # (Auto) Seg Neutrophils % Seg Neutrophils # POC ABG pO2 ABG Hemoglobin ABG Oxyhemoglobin ABG Sodium ABG Glucose Carboxyhemoglobin Sodium Carbon Dioxide Glucose POC Glucose 203 H 189 H 293 H Hemoglobin A1c Calcium Iron Lactate Dehydrogenase C-Reactive Protein Total Protein Albumin Arterial Blood Glucose Lymph Enumerat CD4/CD8 % CD3 Cells % CD4 Cells Absolute CD4 Count % CD8 Cells Absolute CD19 Count HIV-1 RNA PCR copies/ml HIV-1 RNA (PCR) log 12/08/20 12/08/20 12/08/20 11:35 16:18 16:39 WBC RBC Hgb Hct MCV MCH Plt Count Lymph % (Auto) [place] % (Auto) [place] # (Auto) Seg Neutrophils % Seg Neutrophils # POC ABG pO2 ABG Hemoglobin 9.4 L ABG Oxyhemoglobin ABG Sodium 132.7 L ABG Glucose 303 H Carboxyhemoglobin 0.4 L Sodium Carbon Dioxide Glucose POC Glucose 360 H 288 H Hemoglobin A1c Calcium Iron Lactate Dehydrogenase C-Reactive Protein Total Protein Albumin Arterial Blood Glucose 303 H Lymph Enumerat CD4/CD8 % CD3 Cells % CD4 Cells Absolute CD4 Count % CD8 Cells Absolute CD19 Count HIV-1 RNA PCR copies/ml HIV-1 RNA (PCR) log 12/08/20 12/09/20 12/09/20 21:08 13:32 21:43 WBC RBC Hgb Hct MCV MCH Plt Count Lymph % (Auto) [place] % (Auto) [place] # (Auto) Seg Neutrophils % Seg Neutrophils # POC ABG pO2 ABG Hemoglobin ABG Oxyhemoglobin ABG Sodium ABG Glucose Carboxyhemoglobin Sodium Carbon Dioxide Glucose POC Glucose 300 H 394 H Hemoglobin A1c Calcium Iron Lactate Dehydrogenase 273 H C-Reactive Protein Total Protein Albumin Arterial Blood Glucose Lymph Enumerat CD4/CD8 % CD3 Cells % CD4 Cells Absolute CD4 Count % CD8 Cells Absolute CD19 Count HIV-1 RNA PCR copies/ml HIV-1 RNA (PCR) log 12/10/20 12/10/20 12/10/20 07:37 11:04 15:37 WBC RBC Hgb Hct MCV MCH Plt Count Lymph % (Auto) [place] % (Auto) [place] # (Auto) Seg Neutrophils % Seg Neutrophils # POC ABG pO2 ABG Hemoglobin ABG Oxyhemoglobin ABG Sodium ABG Glucose Carboxyhemoglobin Sodium Carbon Dioxide Glucose POC Glucose 431 H 386 H 339 H Hemoglobin A1c Calcium Iron Lactate Dehydrogenase C-Reactive Protein Total Protein Albumin Arterial Blood Glucose Lymph Enumerat CD4/CD8 % CD3 Cells % CD4 Cells Absolute CD4 Count % CD8 Cells Absolute CD19 Count HIV-1 RNA PCR copies/ml HIV-1 RNA (PCR) log 12/10/20 12/11/20 12/11/20 21:09 07:24 10:56 WBC RBC Hgb Hct MCV MCH Plt Count Lymph % (Auto) [place] % (Auto) [place] # (Auto) Seg Neutrophils % Seg Neutrophils # POC ABG pO2 ABG Hemoglobin ABG Oxyhemoglobin ABG Sodium ABG Glucose Carboxyhemoglobin Sodium Carbon Dioxide Glucose POC Glucose 412 H 399 H 431 H Hemoglobin A1c Calcium Iron Lactate Dehydrogenase C-Reactive Protein Total Protein Albumin Arterial Blood Glucose Lymph Enumerat CD4/CD8 % CD3 Cells % CD4 Cells Absolute CD4 Count % CD8 Cells Absolute CD19 Count HIV-1 RNA PCR copies/ml HIV-1 RNA (PCR) log 12/11/20 12/11/20 12/12/20 16:26 22:31 00:53 WBC RBC Hgb Hct MCV MCH Plt Count Lymph % (Auto) [place] % (Auto) [place] # (Auto) Seg Neutrophils % Seg Neutrophils # POC ABG pO2 ABG Hemoglobin ABG Oxyhemoglobin ABG Sodium ABG Glucose Carboxyhemoglobin Sodium Carbon Dioxide Glucose POC Glucose 320 H 361 H 255 H Hemoglobin A1c Calcium Iron Lactate Dehydrogenase C-Reactive Protein Total Protein Albumin Arterial Blood Glucose Lymph Enumerat CD4/CD8 % CD3 Cells % CD4 Cells Absolute CD4 Count % CD8 Cells Absolute CD19 Count HIV-1 RNA PCR copies/ml HIV-1 RNA (PCR) log 12/12/20 12/12/20 12/12/20 07:16 10:47 16:40 WBC RBC Hgb Hct MCV MCH Plt Count Lymph % (Auto) [place] % (Auto) [place] # (Auto) Seg Neutrophils % Seg Neutrophils # POC ABG pO2 ABG Hemoglobin ABG Oxyhemoglobin ABG Sodium ABG Glucose Carboxyhemoglobin Sodium Carbon Dioxide Glucose POC Glucose 171 H 156 H 146 H Hemoglobin A1c Calcium Iron Lactate Dehydrogenase C-Reactive Protein Total Protein Albumin Arterial Blood Glucose Lymph Enumerat CD4/CD8 % CD3 Cells % CD4 Cells Absolute CD4 Count % CD8 Cells Absolute CD19 Count HIV-1 RNA PCR copies/ml HIV-1 RNA (PCR) log 12/12/20 12/13/20 12/13/20 22:04 07:29 08:19 WBC RBC Hgb Hct MCV MCH Plt Count Lymph % (Auto) [place] % (Auto) [place] # (Auto) Seg Neutrophils % Seg Neutrophils # POC ABG pO2 ABG Hemoglobin ABG Oxyhemoglobin ABG Sodium ABG Glucose Carboxyhemoglobin Sodium Carbon Dioxide Glucose POC Glucose 214 H 211 H Hemoglobin A1c Calcium Iron Lactate Dehydrogenase C-Reactive Protein Total Protein Albumin Arterial Blood Glucose Lymph Enumerat CD4/CD8 0.02 L % CD3 Cells 90 H % CD4 Cells 2 L Absolute CD4 Count 22 L % CD8 Cells 88 H Absolute CD19 Count 72 L HIV-1 RNA PCR copies/ml HIV-1 RNA (PCR) log 12/13/20 12/13/20 12/13/20 08:19 11:09 11:23 WBC 13.3 H RBC Hgb 9.3 L Hct 29.6 L MCV 76 L MCH 24 L Plt Count 653 H Lymph % (Auto) [place] % (Auto) [place] # (Auto) 0.9 H Seg Neutrophils % 74.8 H Seg Neutrophils # 9.9 H POC ABG pO2 ABG Hemoglobin ABG Oxyhemoglobin ABG Sodium ABG Glucose Carboxyhemoglobin Sodium Carbon Dioxide Glucose POC Glucose 255 H Hemoglobin A1c Calcium Iron Lactate Dehydrogenase C-Reactive Protein Total Protein Albumin Arterial Blood Glucose Lymph Enumerat CD4/CD8 % CD3 Cells % CD4 Cells Absolute CD4 Count % CD8 Cells Absolute CD19 Count HIV-1 RNA PCR copies/ml 797535 H HIV-1 RNA (PCR) log 5.17 H 12/13/20 12/13/20 12/13/20 15:33 16:00 20:59 WBC RBC Hgb Hct MCV MCH Plt Count Lymph % (Auto) [place] % (Auto) [place] # (Auto) Seg Neutrophils % Seg Neutrophils # POC ABG pO2 70.0 L ABG Hemoglobin 10.4 L ABG Oxyhemoglobin 93.9 L ABG Sodium 131.5 L ABG Glucose 239 H Carboxyhemoglobin Sodium Carbon Dioxide Glucose POC Glucose 225 H 267 H Hemoglobin A1c Calcium Iron Lactate Dehydrogenase C-Reactive Protein Total Protein Albumin Arterial Blood Glucose 239 H Lymph Enumerat CD4/CD8 % CD3 Cells % CD4 Cells Absolute CD4 Count % CD8 Cells Absolute CD19 Count HIV-1 RNA PCR copies/ml HIV-1 RNA (PCR) log 12/14/20 12/14/20 12/14/20 07:15 07:15 07:41 WBC 11.5 H RBC 3.54 L Hgb 8.5 L Hct 26.5 L MCV 75 L MCH 24 L Plt Count 513 H Lymph % (Auto) [place] % (Auto) [place] # (Auto) Seg Neutrophils % Seg Neutrophils # POC ABG pO2 ABG Hemoglobin ABG Oxyhemoglobin ABG Sodium ABG Glucose Carboxyhemoglobin Sodium 134 L Carbon Dioxide Glucose 154 H POC Glucose 162 H Hemoglobin A1c Calcium Iron Lactate Dehydrogenase C-Reactive Protein Total Protein Albumin Arterial Blood Glucose Lymph Enumerat CD4/CD8 % CD3 Cells % CD4 Cells Absolute CD4 Count % CD8 Cells Absolute CD19 Count HIV-1 RNA PCR copies/ml HIV-1 RNA (PCR) log 12/14/20 12/14/20 12/14/20 11:58 17:16 21:07 WBC RBC Hgb Hct MCV MCH Plt Count Lymph % (Auto) [place] % (Auto) [place] # (Auto) Seg Neutrophils % Seg Neutrophils # POC ABG pO2 ABG Hemoglobin ABG Oxyhemoglobin ABG Sodium ABG Glucose Carboxyhemoglobin Sodium Carbon Dioxide Glucose POC Glucose 260 H 314 H 402 H Hemoglobin A1c Calcium Iron Lactate Dehydrogenase C-Reactive Protein Total Protein Albumin Arterial Blood Glucose Lymph Enumerat CD4/CD8 % CD3 Cells % CD4 Cells Absolute CD4 Count % CD8 Cells Absolute CD19 Count HIV-1 RNA PCR copies/ml HIV-1 RNA (PCR) log 12/15/20 12/15/20 12/15/20 07:33 11:13 17:09 WBC RBC Hgb Hct MCV MCH Plt Count Lymph % (Auto) [place] % (Auto) [place] # (Auto) Seg Neutrophils % Seg Neutrophils # POC ABG pO2 ABG Hemoglobin ABG Oxyhemoglobin ABG Sodium ABG Glucose Carboxyhemoglobin Sodium Carbon Dioxide Glucose POC Glucose 249 H 344 H 251 H Hemoglobin A1c Calcium Iron Lactate Dehydrogenase C-Reactive Protein Total Protein Albumin Arterial Blood Glucose Lymph Enumerat CD4/CD8 % CD3 Cells % CD4 Cells Absolute CD4 Count % CD8 Cells Absolute CD19 Count HIV-1 RNA PCR copies/ml HIV-1 RNA (PCR) log 12/15/20 12/16/20 12/16/20 21:34 07:06 07:06 WBC 14.7 H RBC 3.50 L Hgb 8.5 L Hct 26.3 L MCV 75 L MCH 24 L Plt Count 540 H Lymph % (Auto) 10.3 L [place] % (Auto) [place] # (Auto) 1.1 H Seg Neutrophils % 81.8 H Seg Neutrophils # 12.0 H POC ABG pO2 ABG Hemoglobin ABG Oxyhemoglobin ABG Sodium ABG Glucose Carboxyhemoglobin Sodium 135 L Carbon Dioxide 21 L Glucose POC Glucose 294 H Hemoglobin A1c Calcium Iron Lactate Dehydrogenase C-Reactive Protein Total Protein Albumin Arterial Blood Glucose Lymph Enumerat CD4/CD8 % CD3 Cells % CD4 Cells Absolute CD4 Count % CD8 Cells Absolute CD19 Count HIV-1 RNA PCR copies/ml HIV-1 RNA (PCR) log 12/16/20 12/16/20 12/16/20 11:16 16:34 22:05 WBC RBC Hgb Hct MCV MCH Plt Count Lymph % (Auto) [place] % (Auto) [place] # (Auto) Seg Neutrophils % Seg Neutrophils # POC ABG pO2 ABG Hemoglobin ABG Oxyhemoglobin ABG Sodium ABG Glucose Carboxyhemoglobin Sodium Carbon Dioxide Glucose POC Glucose 138 H 354 H 414 H Hemoglobin A1c Calcium Iron Lactate Dehydrogenase C-Reactive Protein Total Protein Albumin Arterial Blood Glucose Lymph Enumerat CD4/CD8 % CD3 Cells % CD4 Cells Absolute CD4 Count % CD8 Cells Absolute CD19 Count HIV-1 RNA PCR copies/ml HIV-1 RNA (PCR) log 12/17/20 12/17/20 12/17/20 11:05 17:36 21:41 WBC RBC Hgb Hct MCV MCH Plt Count Lymph % (Auto) [place] % (Auto) [place] # (Auto) Seg Neutrophils % Seg Neutrophils # POC ABG pO2 ABG Hemoglobin ABG Oxyhemoglobin ABG Sodium ABG Glucose Carboxyhemoglobin Sodium Carbon Dioxide Glucose POC Glucose 149 H 350 H 434 H Hemoglobin A1c Calcium Iron Lactate Dehydrogenase C-Reactive Protein Total Protein Albumin Arterial Blood Glucose Lymph Enumerat CD4/CD8 % CD3 Cells % CD4 Cells Absolute CD4 Count % CD8 Cells Absolute CD19 Count HIV-1 RNA PCR copies/ml HIV-1 RNA (PCR) log 12/18/20 12/18/20 12/18/20 07:10 11:13 16:09 WBC RBC Hgb Hct MCV MCH Plt Count Lymph % (Auto) [place] % (Auto) [place] # (Auto) Seg Neutrophils % Seg Neutrophils # POC ABG pO2 ABG Hemoglobin ABG Oxyhemoglobin ABG Sodium ABG Glucose Carboxyhemoglobin Sodium Carbon Dioxide Glucose POC Glucose 222 H 247 H 285 H Hemoglobin A1c Calcium Iron Lactate Dehydrogenase C-Reactive Protein Total Protein Albumin Arterial Blood Glucose Lymph Enumerat CD4/CD8 % CD3 Cells % CD4 Cells Absolute CD4 Count % CD8 Cells Absolute CD19 Count HIV-1 RNA PCR copies/ml HIV-1 RNA (PCR) log 12/18/20 12/19/20 12/19/20 21:44 07:30 08:34 WBC RBC Hgb Hct MCV MCH Plt Count Lymph % (Auto) [place] % (Auto) [place] # (Auto) Seg Neutrophils % Seg Neutrophils # POC ABG pO2 ABG Hemoglobin ABG Oxyhemoglobin ABG Sodium ABG Glucose Carboxyhemoglobin Sodium Carbon Dioxide Glucose 112 H POC Glucose 369 H 138 H Hemoglobin A1c Calcium Iron Lactate Dehydrogenase C-Reactive Protein Total Protein Albumin Arterial Blood Glucose Lymph Enumerat CD4/CD8 % CD3 Cells % CD4 Cells Absolute CD4 Count % CD8 Cells Absolute CD19 Count HIV-1 RNA PCR copies/ml HIV-1 RNA (PCR) log 12/19/20 12/19/20 12/19/20 11:49 17:14 21:15 WBC RBC Hgb Hct MCV MCH Plt Count Lymph % (Auto) [place] % (Auto) [place] # (Auto) Seg Neutrophils % Seg Neutrophils # POC ABG pO2 ABG Hemoglobin ABG Oxyhemoglobin ABG Sodium ABG Glucose Carboxyhemoglobin Sodium Carbon Dioxide Glucose POC Glucose 187 H 385 H 381 H Hemoglobin A1c Calcium Iron Lactate Dehydrogenase C-Reactive Protein Total Protein Albumin Arterial Blood Glucose Lymph Enumerat CD4/CD8 % CD3 Cells % CD4 Cells Absolute CD4 Count % CD8 Cells Absolute CD19 Count HIV-1 RNA PCR copies/ml HIV-1 RNA (PCR) log 12/20/20 12/20/20 08:06 10:54 WBC RBC Hgb Hct MCV MCH Plt Count Lymph % (Auto) [place] % (Auto) [place] # (Auto) Seg Neutrophils % Seg Neutrophils # POC ABG pO2 ABG Hemoglobin ABG Oxyhemoglobin ABG Sodium ABG Glucose Carboxyhemoglobin Sodium Carbon Dioxide Glucose POC Glucose 267 H 241 H Hemoglobin A1c Calcium Iron Lactate Dehydrogenase C-Reactive Protein Total Protein Albumin Arterial Blood Glucose Lymph Enumerat CD4/CD8 % CD3 Cells % CD4 Cells Absolute CD4 Count % CD8 Cells Absolute CD19 Count HIV-1 RNA PCR copies/ml HIV-1 RNA (PCR) log Allied health notes reviewed: nursing
[2020-12-20] MEDS: ZOLPIDEM 5 MG TAB PO PRN (23:06)
[2020-12-21] MEDS: TMP IV SCH ×3 (02:31→20:15)
[2020-12-21] MEDS: DEXTROSE 5% IV SCH ×3 (02:31→20:15)
[2020-12-21] MEDS: WATER IV SCH ×3 (02:31→20:15)
[2020-12-21] MEDS: SMX IV SCH ×3 (02:31→20:15)
[2020-12-21] MEDS: INSULIN LISPRO 100 UNIT/ML SUB-Q SCH ×4 (07:30→21:51)
[2020-12-21] MEDS: NYSTATIN 500,000 UNIT/5 ML ORAL LIQD PO SCH ×3 (08:17→20:43)
[2020-12-21] MEDS: metFORMIN XR 500MG TAB PO SCH (08:21)
[2020-12-21] MEDS: INSULIN GLARGINE 100 UNITS/ML SUB-Q SCH (08:22)
[2020-12-21] MEDS: IPRATROPIUM/ALBUTEROL SULFATE 3 ML AMPUL.NEB IH SCH ×3 (08:59→20:48)
[2020-12-21] MEDS: FLUCONAZOLE 200 MG TAB PO SCH (11:02)
[2020-12-21] MEDS: ASCORBIC ACID 500 MG TAB PO SCH ×2 (11:03→21:52)
[2020-12-21] MEDS: predniSONE 10 MG TAB PO SCH (11:03)
[2020-12-21] MEDS: CHOLECALCIFEROL (VIT D3) 5,000 UNIT TAB PO SCH (11:04)
[2020-12-21] MEDS: ZINC SULFATE 220 MG CAP PO SCH (11:04)
[2020-12-21] MEDS: FAMOTIDINE 20 MG TAB PO SCH ×2 (11:08→21:52)
[2020-12-21] MEDS: guaiFENesin 100 MG/5 ML ORAL LIQD PO PRN ×2 (11:09→23:10)
--- NOTE | 2020-12-21 12:00 | Progress Note ---
Assessment and Plan Cultures: Blood culture 12/06/2020 no growth 12/06/2020 urine culture: Usual skin korin 12/09/2020 1,3 [id number]: >500, strongly positive. 12/13/2020 blood culture: no growth 12/13/2020 BAL washings culture: Usual respiratory korin 12/13/2020 HIV RNA PCR: 148,000 12/13/2020 CD4: 22, (2%) A/P: 35 yo F PMHx HIV, Dm2, CHF admitted with SOB, myalgias. #Bilateral PNA: Status post bronchoscopy 12/12/2020, no gross endobronchial lesions were seen. Right lower lobe lung biopsy showed findings consistent with pneumocystis. BAL cytology also showed pneumocystis. As per discussion with patient, she reports good compliance with her HIV medications. She used to be undetectable. She also admits to vaping twice daily since August 2020. Vaping induced lung injury is another possibility. #Acute hypoxic respiratory failure: secondary to above. 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 Has outpatient ID doc. But evidence of thrush and PJP pneumonia, and CD4 is consistent with AIDS. Patient continues to state that she has been compliant with her meds but often she vomits the meds. HIV-1 genotype will help clarify whether she is resistant to the meds or noncompliant. #Oral candidiasis Recs: -continue IV Bactrim with adjunctive steroid taper, total treatment for 21 days, upon discharge convert to PO Bactrim DS 2 tabs TID, after 21 days, she will need to continue secondary prophylaxis with 1 tab daily -Continue fluconazole for thrush, complete 14 days -While HIV genotype is pending, current ART is on hold due to concerns for possible resistant HIV -patient wants to change her HIV provider, wishes to follow up with us, will set up follow up appointment post discharge Ashly Lindsay MD, [facility] ([facility] O: [phone] F: [phone] Subjective Date of service: 12/21/20 Principal diagnosis: Sepsis; Ac hypoxemic resp failure; PJP Pneumonia; CHF; PUI COVID-19; HIV+ve Interval history: Afebrile. No new complaints. Remains on oxygen, weaned to NC. Objective - Exam Narrative Exam: Physical Exam: Constitutional: Alert, cooperative. No acute distress Head, Ears, Nose: Normocephalic, atraumatic. External ears, nose normal Eyes: Conjunctivae/corneas clear. No icterus. No ptosis. Neck: Supple, no meningeal signs Cardiovascular: S1, S2 normal. Respiratory: Bilateral crackles GI: Soft, non-tender; bowel sounds normal. No peritoneal signs Musculoskeletal: No pedal edema, no cyanosis. Skin: No rash or abscess Hem/Lymphatic: No palpable cervical or supraclavicular nodes. No lymphangitis Psych: Mood ok. Affect normal Neurological: Awake, alert, oriented. No gross abnormality - Constitutional Vitals: Vital Signs Temp Pulse Resp BP Pulse Ox 97.9 F 113 H 17 105/63 90 12/21/20 04:20 12/21/20 08:00 12/21/20 08:00 12/21/20 04:20 12/21/20 08:00 Temperature -Last 24 Hours Temperature 97.9 F Temperature 98.9 F Temperature 98.3 F - Labs CBC & Chem 7: 12/16/20 07:06 12/19/20 08:34 Labs: Abnormal lab results 12/20/20 12/20/20 12/21/20 Range/Units 15:49 22:24 07:42 POC Glucose 333 H 326 H 158 H (70-105) mg/dL 12/21/20 Range/Units 10:42 POC Glucose 246 H (70-105) mg/dL
[2020-12-21] MEDS ORDERED: LACTULOSE 20 GM/30 ML ORAL LIQD PO PRN (13:15)
--- NOTE | 2020-12-21 14:00 | Progress Note ---
Assessment and Plan Severe Sepsis Acute hypoxic respiratory failure Bilateral pneumonia (PJP Pneumonia) CHF PUI COVID-19 HIV DM II Anemia - doing much better - transferred back to medical floor - continue therapy for severe PJP pneumonia - follow other bronch results including special stains - continue care as below otherwise; - continue to wean supplemental oxygen to keep O2 sats > 90% - prn NIV for increased work of breathing (will hold on scheduling re: risk of pneumothoraces with PJP pneumonia) - prn bronchodilators (HILDA) with pulm hygiene per RT - continue systemic steroids - continue to avoid nephrotoxins, renally dose all medications - continue accuchecks with glycemic control per SSI (While critically ill target blood glucose of 140-180 mg/dL; avoid hypoglycemia) - aspiration precautions - complete AB's per ID rec's - Maintenance of sleep-wake cycle, avoid delirium - mobility protocols to prevent pressure ulcers - PT/OT as tolerated - Wound care per RN/WCT - continue accuchecks with glycemic control per SSI for target blood glucose < 180 mg/dL - tobacco abstinence strongly counseled at the bedside - home oxygen evaluation at discharge - prn analgesia per pain score - GI & VTE prophylaxis - Flu & pneumovax per protocol - Pulmonary out patient follow up for PFTs and optimization of respiratory status - continue other care per attending / other consultants - discharge planning ongoing concurrently .... Re-evaluate in am & prn CONDITION: FAIR PROGNOSIS: GUARDED CODE STATUS: FULL CODE Subjective Date of service: 12/21/20 Principal diagnosis: Sepsis; Ac hypoxemic resp failure; PJP Pneumonia; CHF; PUI COVID-19; HIV+ve Interval history: Patient is seen today for: Sepsis; Acute hypoxemic respiratory failure; Bilateral pneumonia (PJP Pneumonia); CHF; PUI COVID-19; HIV +ve; DM II Seen and examined at bedside; 24hour events reviewed; nursing and respiratory care staff consulted; no adverse overnight events reported to me; resting peacefully in bed; remains on supplemental oxygen at about 45% FiO2; feels much better; denies cough or hemoptysis; No N/V/F/C Objective Vital Signs - 12hr 12/21/20 12/21/20 12/21/20 04:00 04:20 08:00 Temperature 97.9 F Pulse Rate 86 86 Pulse Rate [ 113 H Anterior Bilateral Throughout] Respiratory 20 Rate Respiratory 17 Rate [Anterior Bilateral Throughout] Blood Pressure 105/63 O2 Sat by Pulse 95 90 Oximetry 12/21/20 13:48 Temperature Pulse Rate Pulse Rate [ 120 H Anterior Bilateral Throughout] Respiratory Rate Respiratory 19 Rate [Anterior Bilateral Throughout] Blood Pressure O2 Sat by Pulse Oximetry Constitutional: no acute distress, alert, other (young female with mildly increased respiratory effort at rest ) Eyes: non-icteric ENT: oropharynx moist, other (oral candidiasis) Neck: supple, no lymphadenopathy, no JVD Effort: mildly labored Ascultation: Bilateral: rales (scant) Percussion: Bilateral: not dull Cardiovascular: regular rate and rhythm, other (S1,S2) Gastrointestinal: normoactive bowel sounds, soft, non-tender, non-distended Integumentary: normal Extremities: no cyanosis, no edema, pulses normal, no ischemia or petechiae Neurologic: normal mental status, non-focal exam, pupils equal and round, CN II- XII normal, motor strength normal and (but wekness) Psychiatric: mood appropriate, affect normal CBC and BMP: 12/16/20 07:06 12/22/20 09:10 ABG, PT/INR, D-dimer: ABG ABG pH 7.441 (7.320-7.450) 12/13/20 15:33 POC ABG pCO2 33.7 mmHg (32.0-48.0) 12/13/20 15:33 POC ABG pO2 70.0 mmHg (83-108) L 12/13/20 15:33 POC ABG HCO3 22.4 12/13/20 15:33 ABG O2 Saturation 94.9 (0-100) 12/13/20 15:33 PT/INR, D-dimer D-Dimer 185.58 ng/mlDDU (0-234) 12/06/20 15:24 Abnormal lab findings: Abnormal Labs 12/06/20 12/06/20 12/06/20 14:04 14:04 15:24 WBC RBC 3.57 L Hgb 8.8 L Hct 27.3 L MCV 76 L MCH 25 L Plt Count Lymph % (Auto) Cotton % (Auto) 8.5 H Cotton # (Auto) Seg Neutrophils % Seg Neutrophils # POC ABG pO2 ABG Hemoglobin ABG Oxyhemoglobin ABG Sodium ABG Glucose Carboxyhemoglobin Sodium 136 L Carbon Dioxide Glucose 149 H POC Glucose Hemoglobin A1c Calcium Iron Lactate Dehydrogenase 418 H C-Reactive Protein 7.10 H Total Protein 8.6 H Albumin 2.9 L Arterial Blood Glucose Lymph Enumerat CD4/CD8 % CD3 Cells % CD4 Cells Absolute CD4 Count % CD8 Cells Absolute CD19 Count HIV-1 RNA PCR copies/ml HIV-1 RNA (PCR) log 12/07/20 12/07/20 12/07/20 02:12 02:12 02:12 WBC RBC 3.61 L Hgb 9.2 L Hct 27.8 L MCV 77 L MCH 26 L Plt Count Lymph % (Auto) Cotton % (Auto) 9.4 H Cotton # (Auto) Seg Neutrophils % Seg Neutrophils # POC ABG pO2 ABG Hemoglobin ABG Oxyhemoglobin ABG Sodium ABG Glucose Carboxyhemoglobin Sodium Carbon Dioxide Glucose 123 H POC Glucose Hemoglobin A1c 8.2 H Calcium 8.3 L Iron Lactate Dehydrogenase C-Reactive Protein Total Protein 8.3 H Albumin 3.2 L Arterial Blood Glucose Lymph Enumerat CD4/CD8 % CD3 Cells % CD4 Cells Absolute CD4 Count % CD8 Cells Absolute CD19 Count HIV-1 RNA PCR copies/ml HIV-1 RNA (PCR) log 12/07/20 12/07/20 12/07/20 07:28 07:48 11:48 WBC RBC Hgb Hct MCV MCH Plt Count Lymph % (Auto) Cotton % (Auto) Cotton # (Auto) Seg Neutrophils % Seg Neutrophils # POC ABG pO2 ABG Hemoglobin ABG Oxyhemoglobin ABG Sodium ABG Glucose Carboxyhemoglobin Sodium Carbon Dioxide Glucose POC Glucose 290 H 217 H Hemoglobin A1c Calcium Iron 22 L Lactate Dehydrogenase C-Reactive Protein Total Protein Albumin Arterial Blood Glucose Lymph Enumerat CD4/CD8 % CD3 Cells % CD4 Cells Absolute CD4 Count % CD8 Cells Absolute CD19 Count HIV-1 RNA PCR copies/ml HIV-1 RNA (PCR) log 12/07/20 12/07/20 12/08/20 16:46 22:36 08:50 WBC RBC Hgb Hct MCV MCH Plt Count Lymph % (Auto) Cotton % (Auto) Cotton # (Auto) Seg Neutrophils % Seg Neutrophils # POC ABG pO2 ABG Hemoglobin ABG Oxyhemoglobin ABG Sodium ABG Glucose Carboxyhemoglobin Sodium Carbon Dioxide Glucose POC Glucose 203 H 189 H 293 H Hemoglobin A1c Calcium Iron Lactate Dehydrogenase C-Reactive Protein Total Protein Albumin Arterial Blood Glucose Lymph Enumerat CD4/CD8 % CD3 Cells % CD4 Cells Absolute CD4 Count % CD8 Cells Absolute CD19 Count HIV-1 RNA PCR copies/ml HIV-1 RNA (PCR) log 12/08/20 12/08/20 12/08/20 11:35 16:18 16:39 WBC RBC Hgb Hct MCV MCH Plt Count Lymph % (Auto) Cotton % (Auto) Cotton # (Auto) Seg Neutrophils % Seg Neutrophils # POC ABG pO2 ABG Hemoglobin 9.4 L ABG Oxyhemoglobin ABG Sodium 132.7 L ABG Glucose 303 H Carboxyhemoglobin 0.4 L Sodium Carbon Dioxide Glucose POC Glucose 360 H 288 H Hemoglobin A1c Calcium Iron Lactate Dehydrogenase C-Reactive Protein Total Protein Albumin Arterial Blood Glucose 303 H Lymph Enumerat CD4/CD8 % CD3 Cells % CD4 Cells Absolute CD4 Count % CD8 Cells Absolute CD19 Count HIV-1 RNA PCR copies/ml HIV-1 RNA (PCR) log 12/08/20 12/09/20 12/09/20 21:08 13:32 21:43 WBC RBC Hgb Hct MCV MCH Plt Count Lymph % (Auto) Cotton % (Auto) Cotton # (Auto) Seg Neutrophils % Seg Neutrophils # POC ABG pO2 ABG Hemoglobin ABG Oxyhemoglobin ABG Sodium ABG Glucose Carboxyhemoglobin Sodium Carbon Dioxide Glucose POC Glucose 300 H 394 H Hemoglobin A1c Calcium Iron Lactate Dehydrogenase 273 H C-Reactive Protein Total Protein Albumin Arterial Blood Glucose Lymph Enumerat CD4/CD8 % CD3 Cells % CD4 Cells Absolute CD4 Count % CD8 Cells Absolute CD19 Count HIV-1 RNA PCR copies/ml HIV-1 RNA (PCR) log 12/10/20 12/10/20 12/10/20 07:37 11:04 15:37 WBC RBC Hgb Hct MCV MCH Plt Count Lymph % (Auto) Cotton % (Auto) Cotton # (Auto) Seg Neutrophils % Seg Neutrophils # POC ABG pO2 ABG Hemoglobin ABG Oxyhemoglobin ABG Sodium ABG Glucose Carboxyhemoglobin Sodium Carbon Dioxide Glucose POC Glucose 431 H 386 H 339 H Hemoglobin A1c Calcium Iron Lactate Dehydrogenase C-Reactive Protein Total Protein Albumin Arterial Blood Glucose Lymph Enumerat CD4/CD8 % CD3 Cells % CD4 Cells Absolute CD4 Count % CD8 Cells Absolute CD19 Count HIV-1 RNA PCR copies/ml HIV-1 RNA (PCR) log 12/10/20 12/11/20 12/11/20 21:09 07:24 10:56 WBC RBC Hgb Hct MCV MCH Plt Count Lymph % (Auto) Cotton % (Auto) Cotton # (Auto) Seg Neutrophils % Seg Neutrophils # POC ABG pO2 ABG Hemoglobin ABG Oxyhemoglobin ABG Sodium ABG Glucose Carboxyhemoglobin Sodium Carbon Dioxide Glucose POC Glucose 412 H 399 H 431 H Hemoglobin A1c Calcium Iron Lactate Dehydrogenase C-Reactive Protein Total Protein Albumin Arterial Blood Glucose Lymph Enumerat CD4/CD8 % CD3 Cells % CD4 Cells Absolute CD4 Count % CD8 Cells Absolute CD19 Count HIV-1 RNA PCR copies/ml HIV-1 RNA (PCR) log 12/11/20 12/11/20 12/12/20 16:26 22:31 00:53 WBC RBC Hgb Hct MCV MCH Plt Count Lymph % (Auto) Cotton % (Auto) Cotton # (Auto) Seg Neutrophils % Seg Neutrophils # POC ABG pO2 ABG Hemoglobin ABG Oxyhemoglobin ABG Sodium ABG Glucose Carboxyhemoglobin Sodium Carbon Dioxide Glucose POC Glucose 320 H 361 H 255 H Hemoglobin A1c Calcium Iron Lactate Dehydrogenase C-Reactive Protein Total Protein Albumin Arterial Blood Glucose Lymph Enumerat CD4/CD8 % CD3 Cells % CD4 Cells Absolute CD4 Count % CD8 Cells Absolute CD19 Count HIV-1 RNA PCR copies/ml HIV-1 RNA (PCR) log 12/12/20 12/12/20 12/12/20 07:16 10:47 16:40 WBC RBC Hgb Hct MCV MCH Plt Count Lymph % (Auto) Cotton % (Auto) Cotton # (Auto) Seg Neutrophils % Seg Neutrophils # POC ABG pO2 ABG Hemoglobin ABG Oxyhemoglobin ABG Sodium ABG Glucose Carboxyhemoglobin Sodium Carbon Dioxide Glucose POC Glucose 171 H 156 H 146 H Hemoglobin A1c Calcium Iron Lactate Dehydrogenase C-Reactive Protein Total Protein Albumin Arterial Blood Glucose Lymph Enumerat CD4/CD8 % CD3 Cells % CD4 Cells Absolute CD4 Count % CD8 Cells Absolute CD19 Count HIV-1 RNA PCR copies/ml HIV-1 RNA (PCR) log 12/12/20 12/13/20 12/13/20 22:04 07:29 08:19 WBC RBC Hgb Hct MCV MCH Plt Count Lymph % (Auto) Cotton % (Auto) Cotton # (Auto) Seg Neutrophils % Seg Neutrophils # POC ABG pO2 ABG Hemoglobin ABG Oxyhemoglobin ABG Sodium ABG Glucose Carboxyhemoglobin Sodium Carbon Dioxide Glucose POC Glucose 214 H 211 H Hemoglobin A1c Calcium Iron Lactate Dehydrogenase C-Reactive Protein Total Protein Albumin Arterial Blood Glucose Lymph Enumerat CD4/CD8 0.02 L % CD3 Cells 90 H % CD4 Cells 2 L Absolute CD4 Count 22 L % CD8 Cells 88 H Absolute CD19 Count 72 L HIV-1 RNA PCR copies/ml HIV-1 RNA (PCR) log 12/13/20 12/13/20 12/13/20 08:19 11:09 11:23 WBC 13.3 H RBC Hgb 9.3 L Hct 29.6 L MCV 76 L MCH 24 L Plt Count 653 H Lymph % (Auto) Cotton % (Auto) Cotton # (Auto) 0.9 H Seg Neutrophils % 74.8 H Seg Neutrophils # 9.9 H POC ABG pO2 ABG Hemoglobin ABG Oxyhemoglobin ABG Sodium ABG Glucose Carboxyhemoglobin Sodium Carbon Dioxide Glucose POC Glucose 255 H Hemoglobin A1c Calcium Iron Lactate Dehydrogenase C-Reactive Protein Total Protein Albumin Arterial Blood Glucose Lymph Enumerat CD4/CD8 % CD3 Cells % CD4 Cells Absolute CD4 Count % CD8 Cells Absolute CD19 Count HIV-1 RNA PCR copies/ml 440869 H HIV-1 RNA (PCR) log 5.17 H 12/13/20 12/13/20 12/13/20 15:33 16:00 20:59 WBC RBC Hgb Hct MCV MCH Plt Count Lymph % (Auto) Cotton % (Auto) Cotton # (Auto) Seg Neutrophils % Seg Neutrophils # POC ABG pO2 70.0 L ABG Hemoglobin 10.4 L ABG Oxyhemoglobin 93.9 L ABG Sodium 131.5 L ABG Glucose 239 H Carboxyhemoglobin Sodium Carbon Dioxide Glucose POC Glucose 225 H 267 H Hemoglobin A1c Calcium Iron Lactate Dehydrogenase C-Reactive Protein Total Protein Albumin Arterial Blood Glucose 239 H Lymph Enumerat CD4/CD8 % CD3 Cells % CD4 Cells Absolute CD4 Count % CD8 Cells Absolute CD19 Count HIV-1 RNA PCR copies/ml HIV-1 RNA (PCR) log 12/14/20 12/14/20 12/14/20 07:15 07:15 07:41 WBC 11.5 H RBC 3.54 L Hgb 8.5 L Hct 26.5 L MCV 75 L MCH 24 L Plt Count 513 H Lymph % (Auto) Cotton % (Auto) Cotton # (Auto) Seg Neutrophils % Seg Neutrophils # POC ABG pO2 ABG Hemoglobin ABG Oxyhemoglobin ABG Sodium ABG Glucose Carboxyhemoglobin Sodium 134 L Carbon Dioxide Glucose 154 H POC Glucose 162 H Hemoglobin A1c Calcium Iron Lactate Dehydrogenase C-Reactive Protein Total Protein Albumin Arterial Blood Glucose Lymph Enumerat CD4/CD8 % CD3 Cells % CD4 Cells Absolute CD4 Count % CD8 Cells Absolute CD19 Count HIV-1 RNA PCR copies/ml HIV-1 RNA (PCR) log 12/14/20 12/14/20 12/14/20 11:58 17:16 21:07 WBC RBC Hgb Hct MCV MCH Plt Count Lymph % (Auto) Cotton % (Auto) Cotton # (Auto) Seg Neutrophils % Seg Neutrophils # POC ABG pO2 ABG Hemoglobin ABG Oxyhemoglobin ABG Sodium ABG Glucose Carboxyhemoglobin Sodium Carbon Dioxide Glucose POC Glucose 260 H 314 H 402 H Hemoglobin A1c Calcium Iron Lactate Dehydrogenase C-Reactive Protein Total Protein Albumin Arterial Blood Glucose Lymph Enumerat CD4/CD8 % CD3 Cells % CD4 Cells Absolute CD4 Count % CD8 Cells Absolute CD19 Count HIV-1 RNA PCR copies/ml HIV-1 RNA (PCR) log 12/15/20 12/15/20 12/15/20 07:33 11:13 17:09 WBC RBC Hgb Hct MCV MCH Plt Count Lymph % (Auto) Cotton % (Auto) Cotton # (Auto) Seg Neutrophils % Seg Neutrophils # POC ABG pO2 ABG Hemoglobin ABG Oxyhemoglobin ABG Sodium ABG Glucose Carboxyhemoglobin Sodium Carbon Dioxide Glucose POC Glucose 249 H 344 H 251 H Hemoglobin A1c Calcium Iron Lactate Dehydrogenase C-Reactive Protein Total Protein Albumin Arterial Blood Glucose Lymph Enumerat CD4/CD8 % CD3 Cells % CD4 Cells Absolute CD4 Count % CD8 Cells Absolute CD19 Count HIV-1 RNA PCR copies/ml HIV-1 RNA (PCR) log 12/15/20 12/16/20 12/16/20 21:34 07:06 07:06 WBC 14.7 H RBC 3.50 L Hgb 8.5 L Hct 26.3 L MCV 75 L MCH 24 L Plt Count 540 H Lymph % (Auto) 10.3 L Cotton % (Auto) Cotton # (Auto) 1.1 H Seg Neutrophils % 81.8 H Seg Neutrophils # 12.0 H POC ABG pO2 ABG Hemoglobin ABG Oxyhemoglobin ABG Sodium ABG Glucose Carboxyhemoglobin Sodium 135 L Carbon Dioxide 21 L Glucose POC Glucose 294 H Hemoglobin A1c Calcium Iron Lactate Dehydrogenase C-Reactive Protein Total Protein Albumin Arterial Blood Glucose Lymph Enumerat CD4/CD8 % CD3 Cells % CD4 Cells Absolute CD4 Count % CD8 Cells Absolute CD19 Count HIV-1 RNA PCR copies/ml HIV-1 RNA (PCR) log 12/16/20 12/16/20 12/16/20 11:16 16:34 22:05 WBC RBC Hgb Hct MCV MCH Plt Count Lymph % (Auto) Cotton % (Auto) Cotton # (Auto) Seg Neutrophils % Seg Neutrophils # POC ABG pO2 ABG Hemoglobin ABG Oxyhemoglobin ABG Sodium ABG Glucose Carboxyhemoglobin Sodium Carbon Dioxide Glucose POC Glucose 138 H 354 H 414 H Hemoglobin A1c Calcium Iron Lactate Dehydrogenase C-Reactive Protein Total Protein Albumin Arterial Blood Glucose Lymph Enumerat CD4/CD8 % CD3 Cells % CD4 Cells Absolute CD4 Count % CD8 Cells Absolute CD19 Count HIV-1 RNA PCR copies/ml HIV-1 RNA (PCR) log 12/17/20 12/17/20 12/17/20 11:05 17:36 21:41 WBC RBC Hgb Hct MCV MCH Plt Count Lymph % (Auto) Cotton % (Auto) Cotton # (Auto) Seg Neutrophils % Seg Neutrophils # POC ABG pO2 ABG Hemoglobin ABG Oxyhemoglobin ABG Sodium ABG Glucose Carboxyhemoglobin Sodium Carbon Dioxide Glucose POC Glucose 149 H 350 H 434 H Hemoglobin A1c Calcium Iron Lactate Dehydrogenase C-Reactive Protein Total Protein Albumin Arterial Blood Glucose Lymph Enumerat CD4/CD8 % CD3 Cells % CD4 Cells Absolute CD4 Count % CD8 Cells Absolute CD19 Count HIV-1 RNA PCR copies/ml HIV-1 RNA (PCR) log 12/18/20 12/18/20 12/18/20 07:10 11:13 16:09 WBC RBC Hgb Hct MCV MCH Plt Count Lymph % (Auto) Cotton % (Auto) Cotton # (Auto) Seg Neutrophils % Seg Neutrophils # POC ABG pO2 ABG Hemoglobin ABG Oxyhemoglobin ABG Sodium ABG Glucose Carboxyhemoglobin Sodium Carbon Dioxide Glucose POC Glucose 222 H 247 H 285 H Hemoglobin A1c Calcium Iron Lactate Dehydrogenase C-Reactive Protein Total Protein Albumin Arterial Blood Glucose Lymph Enumerat CD4/CD8 % CD3 Cells % CD4 Cells Absolute CD4 Count % CD8 Cells Absolute CD19 Count HIV-1 RNA PCR copies/ml HIV-1 RNA (PCR) log 12/18/20 12/19/20 12/19/20 21:44 07:30 08:34 WBC RBC Hgb Hct MCV MCH Plt Count Lymph % (Auto) Cotton % (Auto) Cotton # (Auto) Seg Neutrophils % Seg Neutrophils # POC ABG pO2 ABG Hemoglobin ABG Oxyhemoglobin ABG Sodium ABG Glucose Carboxyhemoglobin Sodium Carbon Dioxide Glucose 112 H POC Glucose 369 H 138 H Hemoglobin A1c Calcium Iron Lactate Dehydrogenase C-Reactive Protein Total Protein Albumin Arterial Blood Glucose Lymph Enumerat CD4/CD8 % CD3 Cells % CD4 Cells Absolute CD4 Count % CD8 Cells Absolute CD19 Count HIV-1 RNA PCR copies/ml HIV-1 RNA (PCR) log 12/19/20 12/19/20 12/19/20 11:49 17:14 21:15 WBC RBC Hgb Hct MCV MCH Plt Count Lymph % (Auto) Cotton % (Auto) Cotton # (Auto) Seg Neutrophils % Seg Neutrophils # POC ABG pO2 ABG Hemoglobin ABG Oxyhemoglobin ABG Sodium ABG Glucose Carboxyhemoglobin Sodium Carbon Dioxide Glucose POC Glucose 187 H 385 H 381 H Hemoglobin A1c Calcium Iron Lactate Dehydrogenase C-Reactive Protein Total Protein Albumin Arterial Blood Glucose Lymph Enumerat CD4/CD8 % CD3 Cells % CD4 Cells Absolute CD4 Count % CD8 Cells Absolute CD19 Count HIV-1 RNA PCR copies/ml HIV-1 RNA (PCR) log 12/20/20 12/20/20 12/20/20 08:06 10:54 15:49 WBC RBC Hgb Hct MCV MCH Plt Count Lymph % (Auto) Cotton % (Auto) Cotton # (Auto) Seg Neutrophils % Seg Neutrophils # POC ABG pO2 ABG Hemoglobin ABG Oxyhemoglobin ABG Sodium ABG Glucose Carboxyhemoglobin Sodium Carbon Dioxide Glucose POC Glucose 267 H 241 H 333 H Hemoglobin A1c Calcium Iron Lactate Dehydrogenase C-Reactive Protein Total Protein Albumin Arterial Blood Glucose Lymph Enumerat CD4/CD8 % CD3 Cells % CD4 Cells Absolute CD4 Count % CD8 Cells Absolute CD19 Count HIV-1 RNA PCR copies/ml HIV-1 RNA (PCR) log 12/20/20 12/21/20 12/21/20 22:24 07:42 10:42 WBC RBC Hgb Hct MCV MCH Plt Count Lymph % (Auto) Cotton % (Auto) Cotton # (Auto) Seg Neutrophils % Seg Neutrophils # POC ABG pO2 ABG Hemoglobin ABG Oxyhemoglobin ABG Sodium ABG Glucose Carboxyhemoglobin Sodium Carbon Dioxide Glucose POC Glucose 326 H 158 H 246 H Hemoglobin A1c Calcium Iron Lactate Dehydrogenase C-Reactive Protein Total Protein Albumin Arterial Blood Glucose Lymph Enumerat CD4/CD8 % CD3 Cells % CD4 Cells Absolute CD4 Count % CD8 Cells Absolute CD19 Count HIV-1 RNA PCR copies/ml HIV-1 RNA (PCR) log Allied health notes reviewed: nursing
--- NOTE | 2020-12-21 17:34 | Progress Note ---
Assessment and Plan (1) Sepsis with acute hypoxic respiratory failure Current Visit: Yes Status: Acute Qualifiers: Severe sepsis shock status: unspecified Plan to address problem: Supplemental oxygen and keep the oxygen saturations above 92 Possible Covid pneumonia Treat for bilateral pneumonia and Covid pneumonia Now much better. Patient is off high flow O2 and now down to 3 L. Patient did walking eval today and saturations went down into the low 80s. Not stable for discharge. (2) Bilateral pneumonia Current Visit: Yes Status: Acute Plan to address problem: Treated as community-acquired pneumonia Coronavirus PCR requested IV Decadron initiated ID consult requested (3) CHF (congestive heart failure) Current Visit: No Status: Chronic Qualifiers: Heart failure type: combined systolic and diastolic Plan to address problem: Echocardiogram normal ejection fraction 55 to 60%. IV Lasix 40 mg every 24 Now resolved p.o. diuretics. (4) Person under investigation for COVID-19 Current Visit: Yes Status: Acute Plan to address problem: Coronavirus PCR requested IV Decadron initiated Zinc vitamin C and vitamin D initiated (5) HIV (human immunodeficiency virus infection) Current Visit: Yes Status: Chronic Qualifiers: HIV symptom status: asymptomatic, with no history of HIV-related illness Qualified Code(s): Z21 - Asymptomatic human immunodeficiency virus [HIV] infection status Plan to address problem: Patient on Zithromax Also on Bactrim. 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 Will increase long-acting insulin to 33 units nightly Accu-Cheks AC at bedtime Coverage increase to high-dose sliding scale dose sliding scale Continue Metformin (7) DVT prophylaxis Current Visit: Yes Status: Acute Plan to address problem: On Lovenox and GI prophylaxis (8) Anemia Current Visit: Yes Status: Chronic Qualifiers: Anemia type: iron deficiency Plan to address problem: Subjective Date of service: 12/21/20 Principal diagnosis: Sepsis; Ac hypoxemic resp failure; PJP Pneumonia; CHF; PUI COVID-19; HIV+ve Interval history: 12/07/2020 -COVID-19 test is pending -Continue with IV antibiotics for now, follow procalcitonin level -ID consulted. -Patient's hemoglobin A1c is 8.2 -HIV; patient will follow with ID 12/08/2020 -CTA showed worsening of her groundglass opacities -COVID-19 test was negative -ID consulted and recommend to continue with antibiotics for now -Patient is on her HIV medications -Patient will oxygen saturation dropped to 85% on ambulation and patient require oxygen at discharge -I put a consult for pulmonary 12/09/2020 -Patient's proBNP is normal, pulmonary ordered echo. Patient states she has history of CHF and told me she was diagnosed in this hospital but I check her records and there is no echo report. -Home oxygen arranged. 12/10/2020 -Echo showed no CHF. Patient was seen by ID and started the patient on Bactrim for suspected PCP, and fluconazole for oral candidiasis. We going to follow Fungitell and induced sputum for PCP. Patient has hyperglycemia and added 15 units of Lantus, change Solu-Medrol to prednisone 40 mg daily. Disposition is per pulmonary and ID recommendation 12/11/2020; patient is on Bactrim and fluconazole per ID recommendation. Patient is on steroid per pulmonary recommendation. Induced sputum for PCP was ordered but there was no collected, in detail was ordered. Patient's blood sugar is uncontrolled and I increase Lantus from 15 to 25 units, change sliding scale from moderate to high dose. Continue to monitor and adjust as needed. Disposition is per pulmonary and ID recommendation. Pulmonary evaluated and recommendations as follows: Patient has been scheduled for bronchoscopy with TBBx, cytology brushings, BAL tomorrow at 1pm. Patient is NPO from midnight. Enoxaparin has been stopped. Start D51/2Nsaline at midnight. 12/12: Still with generalized body pain, Bronch today, Will monitor, Pain control. lethargic, awaiting 12/13: Continue supportive care, ID input noted, patient is post Bronchosocpy 12/12- Awaiting microdata and serologies. CONTINUE PAIN CONTROL 12/14: Patient noted with worsening respiratory distress and hypoxia, chest x-ray otherwise shows improvement in symptoms. I encouraged the patient to prone herself during hours of sleep. To use pillows across her chest with deep breaths and practice incentive spirometer. We will continue to monitor wean oxygen as tolerated. Continue awaiting cultures from recent bronchscopy 12/15/20 patient is seen and examined. shortness of breath is same. But patient is coughing. Chest x-ray shows improvement in the appearance in irrigation throughout the both lung as compared to previous exam. Continue Bactrim IV every 8 hours, prednisone 40 mg p.o. daily. Follow-up BAL culture for fungi, AFB. Follow-up HIV RNA PCR, CD4 count. ID consult. Continue current management. Recheck CBC in the morning. Out of bed to chair and PT evaluation. 12/16/20 patient seen and examined. Lab and medication reviewed.Patient is on high flow oxygen nasal cannula 18 L/min FiO2 70%. Patient feels better compared to yesterday. Decreased shortness of breath. Mild coughing. Continue Bactrim IV every 8 hours, prednisone 40 mg p.o. daily. Follow-up BAL culture for fungi, AFB. Follow-up HIV RNA PCR, CD4 count. ID consult. Continue current management. Recheck CBC in the morning. Out of bed to chair and PT evaluation. 12/17: Patient remains critically ill. Still on high flow oxygen FiO2 70% saturating 94%. Will transfer patient to [facility]. Continue to encourage prone positioning, also encourage incentive spirometer. Pulmonary following. She states that Bactrim was making her sick and she had refused but will defer to ID to see if any changes will be made. We will also obtain a GI evaluation as she states that she has not been able to tolerate diet. This will be to help joyce luate for any esophageal disorder secondary to Immunocompromised condition. 12/18: Patient down to 50% Fio2, with saturation of 96%, states she is feeling better some what. Will continue to encourage ambulation and PT. Monitor Oxygen levels. Continue supportive care. 12/19; patient is on 18 L of high flow oxygen, with FiO2 of 50%. Continue with Bactrim and steroids for pneumocystis pneumonia. Imaging and bronchial wash is consistent with pneumocystis pneumonia ID and pulmonary consult appreciated. Patient can be discharged to the floor. Management plan was discussed with the patient and was in agreement with the plan of care. 12/20/2020; patient states she is breathing better. Patient is on high flow oxygen at 15 L with FiO2 50%. I do recommend to continue with IV Bactrim for PJP. Continue fluconazole. 12/21/20. Patient is breathing much better. Was able to discontinue high flow O2 and place patient on flow liters. Patient however failed walking eval patient sats went down to 80s. And when was placed back on oxygen still remain low. It was not till patient got back into bed and became comfortable that saturations returned to normal. Not stable for discharge. Objective - Constitutional Vitals: Vital Signs - 12hr 12/21/20 12/21/20 08:00 13:48 Pulse Rate [ 113 H 120 H Anterior Bilateral Throughout] Respiratory 17 19 Rate [Anterior Bilateral Throughout] O2 Sat by Pulse 90 Oximetry General appearance: Present: no acute distress, well-nourished - EENT Eyes: PERRL, EOM intact ENT: hearing intact, clear oral mucosa Ears: bilateral: normal - Neck Neck: supple, normal ROM - Respiratory Respiratory effort: normal, other (Mildly labored breathing) Respiratory: bilateral: rales, wheezing - Breasts Breasts: normal - Cardiovascular Rhythm: regular Heart Sounds: Present: S1 & S2. Absent: gallop, rub Extremities: pulses intact, No edema, normal color, Full ROM - Gastrointestinal General gastrointestinal: Present: soft, non-tender, non-distended, normal bowel sounds - Genitourinary Female genitourinary: normal - Integumentary Integumentary: clear, warm, dry - Musculoskeletal Musculoskeletal: 1, strength equal bilaterally - Neurologic Neurologic: moves all extremities - Psychiatric Psychiatric: memory intact, appropriate mood/affect, intact judgment & insight - Labs CBC & Chem 7: 12/16/20 07:06 12/19/20 08:34 Labs: Abnormal lab results 12/20/20 12/21/20 12/21/20 Range/Units 22:24 07:42 10:42 POC Glucose 326 H 158 H 246 H (70-105) mg/dL 12/21/20 Range/Units 16:45 POC Glucose 302 H (70-105) mg/dL HEART Score - HEART Score Troponin: Troponin T < 0.010 ng/mL (0.00-0.029) 12/06/20 14:04
[2020-12-21] MEDS: ZOLPIDEM 5 MG TAB PO PRN (22:00)
[2020-12-22] MEDS: TMP IV SCH ×3 (01:34→18:58)
[2020-12-22] MEDS: WATER IV SCH ×3 (01:34→18:58)
[2020-12-22] MEDS: SMX IV SCH ×3 (01:34→18:58)
[2020-12-22] MEDS: DEXTROSE 5% IV SCH ×3 (01:34→18:58)
[2020-12-22] MEDS: oxyCODONE /ACETAMINOPHEN 5-325MG TAB PO PRN ×2 (05:06→22:21)
[2020-12-22] MEDS: IPRATROPIUM/ALBUTEROL SULFATE 3 ML AMPUL.NEB IH SCH ×3 (07:56→20:01)
[2020-12-22] MEDS: INSULIN LISPRO 100 UNIT/ML SUB-Q SCH ×4 (10:00→22:22)
[2020-12-22] MEDS: metFORMIN XR 500MG TAB PO SCH (10:17)
[2020-12-22] MEDS: INSULIN GLARGINE 100 UNITS/ML SUB-Q SCH (10:17)
[2020-12-22] MEDS: FLUCONAZOLE 200 MG TAB PO SCH (10:17)
[2020-12-22] MEDS: ASCORBIC ACID 500 MG TAB PO SCH ×2 (10:19→22:24)
[2020-12-22] MEDS: CHOLECALCIFEROL (VIT D3) 5,000 UNIT TAB PO SCH (10:19)
[2020-12-22] MEDS: predniSONE 10 MG TAB PO SCH (10:19)
[2020-12-22] MEDS: NYSTATIN 500,000 UNIT/5 ML ORAL LIQD PO SCH ×3 (10:19→22:23)
[2020-12-22] MEDS: FAMOTIDINE 20 MG TAB PO SCH ×2 (10:20→22:24)
[2020-12-22] MEDS: ZINC SULFATE 220 MG CAP PO SCH (10:20)
[2020-12-22 10:25] LABS: BUN/Creatinine Ratio 14; Blood Urea Nitrogen 11 mg/dL (7-17); Calcium 9.5 mg/dL (8.4-10.2); Hemolysis Index 1
--- NOTE | 2020-12-22 12:11 | Progress Note ---
Assessment and Plan Cultures: Blood culture 12/06/2020 no growth 12/06/2020 urine culture: Usual skin korin 12/09/2020 1,3 [id number]: >500, strongly positive. 12/13/2020 blood culture: no growth 12/13/2020 BAL washings culture: Usual respiratory korin 12/13/2020 HIV RNA PCR: 148,000 12/13/2020 CD4: 22, (2%) A/P: 35 yo F PMHx HIV, Dm2, CHF admitted with SOB, myalgias. #Bilateral PNA: Status post bronchoscopy 12/12/2020, no gross endobronchial lesions were seen. Right lower lobe lung biopsy showed findings consistent with pneumocystis. BAL cytology also showed pneumocystis. As per discussion with patient, she reports good compliance with her HIV medications. She used to be undetectable. She also admits to vaping twice daily since August 2020. Vaping induced lung injury is another possibility. #Acute hypoxic respiratory failure: secondary to above. 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 Has outpatient ID doc. But evidence of thrush and PJP pneumonia, and CD4 is consistent with AIDS. Patient continues to state that she has been compliant with her meds but often she vomits the meds. HIV-1 genotype will help clarify whether she is resistant to the meds or noncompliant. #Oral candidiasis Recs: -upon discharge convert to PO Bactrim DS 2 tabs TID x 14 days, after that, she will need to continue secondary prophylaxis with Bactrim DS 1 tab daily -PO prednisone taper over the next 14 days -Continue fluconazole PO 200 mg daily x 7 more days -prescriptions for PO Symtuza 1 tab daily + PO Dolutegravir 50 mg daily x 30 tabs. Will follow up with me in ID clinic to follow up on pending HIV Genotype and establish HIV care -ID clinic follow up (double end tenon operator notified and patient also has our contact info) Above explained to patient in detail. Ashly Lindsay MD, FACP [facility] ([facility]) O: [phone] F: [phone] Subjective Date of service: 12/22/20 Principal diagnosis: Sepsis; Ac hypoxemic resp failure; PJP Pneumonia; CHF; PUI COVID-19; HIV+ve Interval history: Afebrile. No new complaints. Remains on oxygen, on NC. Hoping to get discharged. Objective - Exam Narrative Exam: Physical Exam: Constitutional: Alert, cooperative. No acute distress Head, Ears, Nose: Normocephalic, atraumatic. External ears, nose normal Eyes: Conjunctivae/corneas clear. No icterus. No ptosis. Neck: Supple, no meningeal signs Cardiovascular: S1, S2 normal. Respiratory: Bilateral crackles GI: Soft, non-tender; bowel sounds normal. No peritoneal signs Musculoskeletal: No pedal edema, no cyanosis. Skin: No rash or abscess Hem/Lymphatic: No palpable cervical or supraclavicular nodes. No lymphangitis Psych: Mood ok. Affect normal Neurological: Awake, alert, oriented. No gross abnormality - Constitutional Vitals: Vital Signs Temp Pulse Resp BP Pulse Ox 98.4 F 93 H 18 104/55 97 12/22/20 04:08 12/22/20 04:08 12/22/20 06:06 12/22/20 04:08 12/22/20 04:08 Temperature -Last 24 Hours Temperature 98.4 F Temperature 98.0 F Temperature 98.3 F - Labs CBC & Chem 7: 12/16/20 07:06 12/22/20 09:10 Labs: Abnormal lab results 12/21/20 12/21/20 12/22/20 Range/Units 16:45 21:27 07:22 Sodium (137-145) mmol/L Chloride (98-107) mmol/L Glucose (65-100) mg/dL POC Glucose 302 H 333 H 113 H (70-105) mg/dL 12/22/20 12/22/20 Range/Units 09:10 11:00 Sodium 134 L (137-145) mmol/L Chloride 95.6 L (98-107) mmol/L Glucose 212 H (65-100) mg/dL POC Glucose 302 H (70-105) mg/dL
[2020-12-22] MEDS: MORPHINE 2 MG/1 ML INJ IV PRN (12:41)
--- NOTE | 2020-12-22 12:55 | Discharge Summary ---
Providers - Providers Date of Admission: 12/06/20 15:31 Date of discharge: 12/22/20 Attending physician: ROBIN UMANA 12/06/20 21:36 Consult to Physician [CONS] Routine Comment: Consulting Provider: ANDREY CHAIREZ Physician Instructions: Reason For Exam: Bilateral pneumonia, rule out Covid 12/08/20 13:19 Consult to Physician [CONS] Routine Comment: Consulting Provider: ALEK DUARTE Physician Instructions: Reason For Exam: hypoxia 12/17/20 10:59 Occupational Therapy Evaluate and Treat [CONS] Routine Comment: Reason For Exam: debility Physical Therapy Evaluation and Treat [CONS] Routine Comment: Reason For Exam: debility- OUT OF BED TO CHAIR Primary care physician: RESEARCH TECHNICIAN Hospitalization Reason for admission: acute resp failure Condition: Stable Pertinent studies: Chest x-ray Persistent bibasilar airspace disease slightly increased on the right CT abdomen Worsened groundglass opacities throughout the visualized portion of the bilateral lower lobes. This likely represents worsened atypical versus viral infectious process. Persistent cholelithiasis without acute cholecystitis Mural thickening of the gastric wall may be secondary to incomplete distention versus mild gastritis 5.2 cm simple left ovarian cyst is likely physiologic. However given its size 3-month pelvic ultrasound follow-up to document resolution is recommended. Chest CTA No CT evidence for pulmonary embolism Interval worsening of diffuse groundglass opacities throughout bilateral lung fi elds when compared to 11-14-2020. Concerning for worsened atypical versus viral infectious process. Status post bronchoscopy 12/12/2020, no gross endobronchial lesions were seen. Right lower lobe lung biopsy showed findings consistent with pneumocystis. BAL cytology also showed pneumocystis. Cultures: Blood culture 12/06/2020 no growth 12/06/2020 urine culture: Usual skin korin 12/09/2020 1,3 [id number]: >500, strongly positive. 12/13/2020 blood culture: no growth 12/13/2020 BAL washings culture: Usual respiratory korin 12/13/2020 HIV RNA PCR: 148,000 12/13/2020 CD4: 22, (2%) Echocardiogram ejection fraction 55 to 60%. Hospital course: Patient 35-year-old with a history of HIV, diabetes congestive heart failure originally presented with 1 week shortness of breath, dyspnea on exertion low- grade fever. Work-up patient found to have acute respiratory failure secondary to bilateral pneumonia. Patient was admitted required high flow O2 secondary to acute respiratory failure. Patient had prolonged hospital course with difficulty in weaning patient from high flow O2 to her current oxygen of 3 L of O2. Patient satting at 98% on 3 days O2. Stable for discharge today. Patient has follow-up with her own infectious disease doctor. Disposition: DC-01 TO HOME OR SELFCARE Final Discharge Diagnosis (Prints w/discharge instructions): Acute hypoxic respiratory failure - Discharge Diagnoses (1) Bilateral pneumonia Status: Acute Comment: Patient treated for bilateral pneumonia.PJP. Originally treated with Bactrim and now converted to p.o. Bactrim to take 2 double strength tabs 3 times daily for to complete 21 days. Then will transfer to prophylactic doses. Is to follow-up with ID in 7 to 10 days. Now being discharged home on 3 L O2 home O2. (2) History of HIV or AIDS Status: Acute Comment: Place back on Truvada/Norvir/DarUNAVIR (3) Person under investigation for COVID-19 Status: Acute Comment: neg (4) Sepsis with acute hypoxic respiratory failure Status: Resolved Qualifiers: Severe sepsis shock status: unspecified (5) T2DM (type 2 diabetes mellitus) Status: Chronic Qualifiers: Diabetes mellitus alf insulin use: unspecified alf insulin use status Comment: Uncontrolled diabetes most likely exacerbated by prednisone use. We did titrate patient up to 33 L Lantus long-acting and had fair control. (6) DVT prophylaxis Status: Acute (7) CHF (congestive heart failure) Status: Chronic Qualifiers: Heart failure type: combined systolic and diastolic Comment: Patient history of congestive heart failure. Chest x-ray and clinical exam findings including physical exam findings was not consistent with acute CHF exacerbation. No edema no JVD no lower extremity edema. Patient ejection fraction also 55 to 60% via echo. (8) Hypertension Status: Acute Comment: Well-controlled with metoprolol tinea present management. (9) Debility Status: Acute Comment: Secondary to prolonged hospital stay. Patient will require PT at home. Also home nursing is been ordered as well. Core Measure Documentation - Palliative Care Palliative Care/ Comfort Measures: Not Applicable - Core Measures Any of the following diagnoses?: none Exam - Constitutional Vitals: Temp Pulse Resp BP Pulse Ox 98.4 F 105 H 20 104/55 93 12/22/20 04:08 07/02/21 07:56 12/22/20 07:56 12/22/20 04:08 12/22/20 10:00 General appearance: Present: no acute distress, well-nourished - EENT Eyes: Present: PERRL ENT: hearing intact, clear oral mucosa - Neck Neck: Present: supple, normal ROM - Respiratory Respiratory effort: normal Respiratory: bilateral: diminished, rhonchi - Cardiovascular Heart Sounds: Present: S1 & S2. Absent: rub, click - Extremities Extremities: pulses symmetrical, No edema Peripheral Pulses: within normal limits - Abdominal General gastrointestinal: Present: soft, non-tender, non-distended, normal bowel sounds Female genitourinary: Present: normal - Integumentary Integumentary: Present: clear, warm, dry - Musculoskeletal Musculoskeletal: strength equal bilaterally, generalized weakness, other (Debility) - Psychiatric Psychiatric: appropriate mood/affect, intact judgment & insight - Neurologic Neurologic: CNII-XII intact, moves all extremities Plan Activity: up only with assistance, fall precautions Weight Bearing Status: Full Weight Bearing Diet: diabetic Special Instructions: record blood sugar diary, smoking cessation, physical therapy, home oxygen via, home health RN Follow up with: PRIMARY CARE, [Primary Care Provider] - 3-5 Days Prescriptions: Zolpidem [Ambien] 5 mg PO QHS PRN #10 tablet PRN Reason: Sleep Sulfamethoxazole/Trimethoprim [Bactrim DS TAB] 1 each PO TID #126 tablet Insulin Glargine [Lantus VIAL] 33 units SUB-Q QAMDIAB #20 units Metformin HCl [metFORMIN ER Osmotic] 500 mg PO DAILY #30 tab.er.24 polyethylene glycoL 3350 [Miralax 3350] 17 gm PO QDAY PRN #10 powd.pack PRN Reason: Constipation Nystatin [Nystatin SUSP] 100,000 unit PO TID #20 udc Famotidine [Pepcid] 20 mg PO BID #60 tablet oxyCODONE /ACETAMINOPHEN [Percocet 5/325 mg] 2 tab PO Q6H PRN #14 tablet PRN Reason: Pain, Moderate (4-6) predniSONE 20 mg PO QDAY #30 tablet Darunavir/Cob/Emtri/Tenof Alaf [Symtuza [id number] mg Tab] 1 each PO DAILY #30 tablet Dolutegravir [Tivicay] 50 mg PO DAILY #30 tablet traMADoL [Ultram 50 MG tab] 50 mg PO Q8HR PRN #15 tablet PRN Reason: Pain Ascorbic Acid [Vitamin C] 1,000 mg PO BID #30 tablet Cholecalciferol (Vitamin D3) [Vitamin D3] 5,000 unit PO DAILY #30 tablet Zinc Sulfate 220 mg PO DAILY #10 capsule Azithromycin [Zithromax TAB] 500 mg PO QDAY #2 tablet Ondansetron [Zofran ODT TAB] 4 mg PO Q8HR PRN #14 tab.rapdis PRN Reason: Nausea And Vomiting
--- NOTE | 2020-12-22 15:07 | Progress Note ---
Assessment and Plan Severe Sepsis Acute hypoxic respiratory failure Bilateral pneumonia (PJP Pneumonia) CHF PUI COVID-19 HIV DM II Anemia - complete therapy for severe PJP pneumonia - outpatient ID f/up re: ART & HIV prophylaxis - Pulmonary out patient follow up for PFTs and optimization of respiratory status - discharge planning ok respiratory-l[place]en - continue care as below otherwise; - continue to wean supplemental oxygen to keep O2 sats > 90% - prn NIV for increased work of breathing (will hold on scheduling re: risk of pneumothoraces with PJP pneumonia) - prn bronchodilators (HILDA) with pulm hygiene per RT - continue systemic steroids - continue to avoid nephrotoxins, renally dose all medications - continue accuchecks with glycemic control per SSI (While critically ill target blood glucose of 140-180 mg/dL; avoid hypoglycemia) - aspiration precautions - complete AB's per ID rec's - Maintenance of sleep-wake cycle, avoid delirium - mobility protocols to prevent pressure ulcers - PT/OT as tolerated - Wound care per RN/WCT - continue accuchecks with glycemic control per SSI for target blood glucose < 180 mg/dL - tobacco abstinence strongly counseled at the bedside - home oxygen evaluation at discharge - prn analgesia per pain score - GI & VTE prophylaxis - Flu & pneumovax per protocol - continue other care per attending / other consultants - discharge planning ongoing concurrently .... Re-evaluate in am & prn CONDITION: STABLE PROGNOSIS: GOOD CODE STATUS: FULL CODE Subjective Date of service: 12/22/20 Principal diagnosis: Sepsis; Ac hypoxemic resp failure; PJP Pneumonia; CHF; PUI COVID-19; HIV+ve Interval history: Patient is seen today for: Sepsis; Acute hypoxemic respiratory failure; Bilateral pneumonia (PJP Pneumonia); CHF; PUI COVID-19; HIV +ve; DM II Seen and examined at bedside; 24hour events reviewed; nursing and respiratory care staff consulted; no adverse overnight events reported to me; resting peacefully in bed; remains on supplemental oxygen but down to 3L NC; in good spirits; no cough or hemoptysis; wants to go home Objective Vital Signs - 12hr 12/22/20 12/22/20 12/22/20 04:08 05:06 06:06 Temperature 98.4 F Pulse Rate 93 H Pulse Rate [ Anterior Bilateral Throughout] Respiratory 16 18 18 Rate Respiratory Rate [Anterior Bilateral Throughout] Blood Pressure 104/55 O2 Sat by Pulse 97 Oximetry 12/22/20 12/22/20 12/22/20 07:56 10:00 10:58 Temperature Pulse Rate 114 H Pulse Rate [ 105 H Anterior Bilateral Throughout] Respiratory Rate Respiratory 20 Rate [Anterior Bilateral Throughout] Blood Pressure 137/80 O2 Sat by Pulse 97 93 86 Oximetry 12/22/20 10:59 Temperature Pulse Rate 122 H Pulse Rate [ Anterior Bilateral Throughout] Respiratory Rate Respiratory Rate [Anterior Bilateral Throughout] Blood Pressure O2 Sat by Pulse 86 Oximetry Constitutional: no acute distress, alert, other (young female with normal respiratory effort at rest ) Eyes: non-icteric ENT: oropharynx moist Neck: supple, no lymphadenopathy, no JVD Effort: mildly labored Ascultation: Bilateral: clear Percussion: Bilateral: not dull Cardiovascular: regular rate and rhythm, other (S1,S2) Gastrointestinal: normoactive bowel sounds, soft, non-tender, non-distended Integumentary: normal Extremities: no cyanosis, no edema, pulses normal, no ischemia or petechiae Neurologic: normal mental status, non-focal exam, pupils equal and round, CN II- XII normal, motor strength normal and Psychiatric: mood appropriate, affect normal CBC and BMP: 12/16/20 07:06 12/22/20 09:10 ABG, PT/INR, D-dimer: ABG ABG pH 7.441 (7.320-7.450) 12/13/20 15:33 POC ABG pCO2 33.7 mmHg (32.0-48.0) 12/13/20 15:33 POC ABG pO2 70.0 mmHg (83-108) L 12/13/20 15:33 POC ABG HCO3 22.4 12/13/20 15:33 ABG O2 Saturation 94.9 (0-100) 12/13/20 15:33 PT/INR, D-dimer D-Dimer 185.58 ng/mlDDU (0-234) 12/06/20 15:24 Abnormal lab findings: Abnormal Labs 12/06/20 12/06/20 12/06/20 14:04 14:04 15:24 WBC RBC 3.57 L Hgb 8.8 L Hct 27.3 L MCV 76 L MCH 25 L Plt Count Lymph % (Auto) [place] % (Auto) 8.5 H [place] # (Auto) Seg Neutrophils % Seg Neutrophils # POC ABG pO2 ABG Hemoglobin ABG Oxyhemoglobin ABG Sodium ABG Glucose Carboxyhemoglobin Sodium 136 L Chloride Carbon Dioxide Glucose 149 H POC Glucose Hemoglobin A1c Calcium Iron Lactate Dehydrogenase 418 H C-Reactive Protein 7.10 H Total Protein 8.6 H Albumin 2.9 L Arterial Blood Glucose Lymph Enumerat CD4/CD8 % CD3 Cells % CD4 Cells Absolute CD4 Count % CD8 Cells Absolute CD19 Count HIV-1 RNA PCR copies/ml HIV-1 RNA (PCR) log HIV-1 Genotyping 12/07/20 12/07/20 12/07/20 02:12 02:12 02:12 WBC RBC 3.61 L Hgb 9.2 L Hct 27.8 L MCV 77 L MCH 26 L Plt Count Lymph % (Auto) [place] % (Auto) 9.4 H [place] # (Auto) Seg Neutrophils % Seg Neutrophils # POC ABG pO2 ABG Hemoglobin ABG Oxyhemoglobin ABG Sodium ABG Glucose Carboxyhemoglobin Sodium Chloride Carbon Dioxide Glucose 123 H POC Glucose Hemoglobin A1c 8.2 H Calcium 8.3 L Iron Lactate Dehydrogenase C-Reactive Protein Total Protein 8.3 H Albumin 3.2 L Arterial Blood Glucose Lymph Enumerat CD4/CD8 % CD3 Cells % CD4 Cells Absolute CD4 Count % CD8 Cells Absolute CD19 Count HIV-1 RNA PCR copies/ml HIV-1 RNA (PCR) log HIV-1 Genotyping 12/07/20 12/07/20 12/07/20 07:28 07:48 11:48 WBC RBC Hgb Hct MCV MCH Plt Count Lymph % (Auto) [place] % (Auto) [place] # (Auto) Seg Neutrophils % Seg Neutrophils # POC ABG pO2 ABG Hemoglobin ABG Oxyhemoglobin ABG Sodium ABG Glucose Carboxyhemoglobin Sodium Chloride Carbon Dioxide Glucose POC Glucose 290 H 217 H Hemoglobin A1c Calcium Iron 22 L Lactate Dehydrogenase C-Reactive Protein Total Protein Albumin Arterial Blood Glucose Lymph Enumerat CD4/CD8 % CD3 Cells % CD4 Cells Absolute CD4 Count % CD8 Cells Absolute CD19 Count HIV-1 RNA PCR copies/ml HIV-1 RNA (PCR) log HIV-1 Genotyping 12/07/20 12/07/20 12/08/20 16:46 22:36 08:50 WBC RBC Hgb Hct MCV MCH Plt Count Lymph % (Auto) [place] % (Auto) [place] # (Auto) Seg Neutrophils % Seg Neutrophils # POC ABG pO2 ABG Hemoglobin ABG Oxyhemoglobin ABG Sodium ABG Glucose Carboxyhemoglobin Sodium Chloride Carbon Dioxide Glucose POC Glucose 203 H 189 H 293 H Hemoglobin A1c Calcium Iron Lactate Dehydrogenase C-Reactive Protein Total Protein Albumin Arterial Blood Glucose Lymph Enumerat CD4/CD8 % CD3 Cells % CD4 Cells Absolute CD4 Count % CD8 Cells Absolute CD19 Count HIV-1 RNA PCR copies/ml HIV-1 RNA (PCR) log HIV-1 Genotyping 12/08/20 12/08/20 12/08/20 11:35 16:18 16:39 WBC RBC Hgb Hct MCV MCH Plt Count Lymph % (Auto) [place] % (Auto) [place] # (Auto) Seg Neutrophils % Seg Neutrophils # POC ABG pO2 ABG Hemoglobin 9.4 L ABG Oxyhemoglobin ABG Sodium 132.7 L ABG Glucose 303 H Carboxyhemoglobin 0.4 L Sodium Chloride Carbon Dioxide Glucose POC Glucose 360 H 288 H Hemoglobin A1c Calcium Iron Lactate Dehydrogenase C-Reactive Protein Total Protein Albumin Arterial Blood Glucose 303 H Lymph Enumerat CD4/CD8 % CD3 Cells % CD4 Cells Absolute CD4 Count % CD8 Cells Absolute CD19 Count HIV-1 RNA PCR copies/ml HIV-1 RNA (PCR) log HIV-1 Genotyping 12/08/20 12/09/20 12/09/20 21:08 13:32 21:43 WBC RBC Hgb Hct MCV MCH Plt Count Lymph % (Auto) [place] % (Auto) [place] # (Auto) Seg Neutrophils % Seg Neutrophils # POC ABG pO2 ABG Hemoglobin ABG Oxyhemoglobin ABG Sodium ABG Glucose Carboxyhemoglobin Sodium Chloride Carbon Dioxide Glucose POC Glucose 300 H 394 H Hemoglobin A1c Calcium Iron Lactate Dehydrogenase 273 H C-Reactive Protein Total Protein Albumin Arterial Blood Glucose Lymph Enumerat CD4/CD8 % CD3 Cells % CD4 Cells Absolute CD4 Count % CD8 Cells Absolute CD19 Count HIV-1 RNA PCR copies/ml HIV-1 RNA (PCR) log HIV-1 Genotyping 12/10/20 12/10/20 12/10/20 07:37 11:04 15:37 WBC RBC Hgb Hct MCV MCH Plt Count Lymph % (Auto) [place] % (Auto) [place] # (Auto) Seg Neutrophils % Seg Neutrophils # POC ABG pO2 ABG Hemoglobin ABG Oxyhemoglobin ABG Sodium ABG Glucose Carboxyhemoglobin Sodium Chloride Carbon Dioxide Glucose POC Glucose 431 H 386 H 339 H Hemoglobin A1c Calcium Iron Lactate Dehydrogenase C-Reactive Protein Total Protein Albumin Arterial Blood Glucose Lymph Enumerat CD4/CD8 % CD3 Cells % CD4 Cells Absolute CD4 Count % CD8 Cells Absolute CD19 Count HIV-1 RNA PCR copies/ml HIV-1 RNA (PCR) log HIV-1 Genotyping 12/10/20 12/11/20 12/11/20 21:09 07:24 10:56 WBC RBC Hgb Hct MCV MCH Plt Count Lymph % (Auto) [place] % (Auto) [place] # (Auto) Seg Neutrophils % Seg Neutrophils # POC ABG pO2 ABG Hemoglobin ABG Oxyhemoglobin ABG Sodium ABG Glucose Carboxyhemoglobin Sodium Chloride Carbon Dioxide Glucose POC Glucose 412 H 399 H 431 H Hemoglobin A1c Calcium Iron Lactate Dehydrogenase C-Reactive Protein Total Protein Albumin Arterial Blood Glucose Lymph Enumerat CD4/CD8 % CD3 Cells % CD4 Cells Absolute CD4 Count % CD8 Cells Absolute CD19 Count HIV-1 RNA PCR copies/ml HIV-1 RNA (PCR) log HIV-1 Genotyping 12/11/20 12/11/20 12/12/20 16:26 22:31 00:53 WBC RBC Hgb Hct MCV MCH Plt Count Lymph % (Auto) [place] % (Auto) [place] # (Auto) Seg Neutrophils % Seg Neutrophils # POC ABG pO2 ABG Hemoglobin ABG Oxyhemoglobin ABG Sodium ABG Glucose Carboxyhemoglobin Sodium Chloride Carbon Dioxide Glucose POC Glucose 320 H 361 H 255 H Hemoglobin A1c Calcium Iron Lactate Dehydrogenase C-Reactive Protein Total Protein Albumin Arterial Blood Glucose Lymph Enumerat CD4/CD8 % CD3 Cells % CD4 Cells Absolute CD4 Count % CD8 Cells Absolute CD19 Count HIV-1 RNA PCR copies/ml HIV-1 RNA (PCR) log HIV-1 Genotyping 12/12/20 12/12/20 12/12/20 07:16 10:47 16:40 WBC RBC Hgb Hct MCV MCH Plt Count Lymph % (Auto) [place] % (Auto) [place] # (Auto) Seg Neutrophils % Seg Neutrophils # POC ABG pO2 ABG Hemoglobin ABG Oxyhemoglobin ABG Sodium ABG Glucose Carboxyhemoglobin Sodium Chloride Carbon Dioxide Glucose POC Glucose 171 H 156 H 146 H Hemoglobin A1c Calcium Iron Lactate Dehydrogenase C-Reactive Protein Total Protein Albumin Arterial Blood Glucose Lymph Enumerat CD4/CD8 % CD3 Cells % CD4 Cells Absolute CD4 Count % CD8 Cells Absolute CD19 Count HIV-1 RNA PCR copies/ml HIV-1 RNA (PCR) log HIV-1 Genotyping 12/12/20 12/13/20 12/13/20 22:04 07:29 08:19 WBC RBC Hgb Hct MCV MCH Plt Count Lymph % (Auto) [place] % (Auto) [place] # (Auto) Seg Neutrophils % Seg Neutrophils # POC ABG pO2 ABG Hemoglobin ABG Oxyhemoglobin ABG Sodium ABG Glucose Carboxyhemoglobin Sodium Chloride Carbon Dioxide Glucose POC Glucose 214 H 211 H Hemoglobin A1c Calcium Iron Lactate Dehydrogenase C-Reactive Protein Total Protein Albumin Arterial Blood Glucose Lymph Enumerat CD4/CD8 0.02 L % CD3 Cells 90 H % CD4 Cells 2 L Absolute CD4 Count 22 L % CD8 Cells 88 H Absolute CD19 Count 72 L HIV-1 RNA PCR copies/ml HIV-1 RNA (PCR) log HIV-1 Genotyping 12/13/20 12/13/20 12/13/20 08:19 11:09 11:23 WBC 13.3 H RBC Hgb 9.3 L Hct 29.6 L MCV 76 L MCH 24 L Plt Count 653 H Lymph % (Auto) [place] % (Auto) [place] # (Auto) 0.9 H Seg Neutrophils % 74.8 H Seg Neutrophils # 9.9 H POC ABG pO2 ABG Hemoglobin ABG Oxyhemoglobin ABG Sodium ABG Glucose Carboxyhemoglobin Sodium Chloride Carbon Dioxide Glucose POC Glucose 255 H Hemoglobin A1c Calcium Iron Lactate Dehydrogenase C-Reactive Protein Total Protein Albumin Arterial Blood Glucose Lymph Enumerat CD4/CD8 % CD3 Cells % CD4 Cells Absolute CD4 Count % CD8 Cells Absolute CD19 Count HIV-1 RNA PCR copies/ml 469778 H HIV-1 RNA (PCR) log 5.17 H HIV-1 Genotyping 12/13/20 12/13/20 12/13/20 15:33 16:00 20:59 WBC RBC Hgb Hct MCV MCH Plt Count Lymph % (Auto) [place] % (Auto) [place] # (Auto) Seg Neutrophils % Seg Neutrophils # POC ABG pO2 70.0 L ABG Hemoglobin 10.4 L ABG Oxyhemoglobin 93.9 L ABG Sodium 131.5 L ABG Glucose 239 H Carboxyhemoglobin Sodium Chloride Carbon Dioxide Glucose POC Glucose 225 H 267 H Hemoglobin A1c Calcium Iron Lactate Dehydrogenase C-Reactive Protein Total Protein Albumin Arterial Blood Glucose 239 H Lymph Enumerat CD4/CD8 % CD3 Cells % CD4 Cells Absolute CD4 Count % CD8 Cells Absolute CD19 Count HIV-1 RNA PCR copies/ml HIV-1 RNA (PCR) log HIV-1 Genotyping 12/14/20 12/14/20 12/14/20 07:15 07:15 07:41 WBC 11.5 H RBC 3.54 L Hgb 8.5 L Hct 26.5 L MCV 75 L MCH 24 L Plt Count 513 H Lymph % (Auto) [place] % (Auto) [place] # (Auto) Seg Neutrophils % Seg Neutrophils # POC ABG pO2 ABG Hemoglobin ABG Oxyhemoglobin ABG Sodium ABG Glucose Carboxyhemoglobin Sodium 134 L Chloride Carbon Dioxide Glucose 154 H POC Glucose 162 H Hemoglobin A1c Calcium Iron Lactate Dehydrogenase C-Reactive Protein Total Protein Albumin Arterial Blood Glucose Lymph Enumerat CD4/CD8 % CD3 Cells % CD4 Cells Absolute CD4 Count % CD8 Cells Absolute CD19 Count HIV-1 RNA PCR copies/ml HIV-1 RNA (PCR) log HIV-1 Genotyping 12/14/20 12/14/20 12/14/20 11:58 15:06 17:16 WBC RBC Hgb Hct MCV MCH Plt Count Lymph % (Auto) [place] % (Auto) [place] # (Auto) Seg Neutrophils % Seg Neutrophils # POC ABG pO2 ABG Hemoglobin ABG Oxyhemoglobin ABG Sodium ABG Glucose Carboxyhemoglobin Sodium Chloride Carbon Dioxide Glucose POC Glucose 260 H 314 H Hemoglobin A1c Calcium Iron Lactate Dehydrogenase C-Reactive Protein Total Protein Albumin Arterial Blood Glucose Lymph Enumerat CD4/CD8 % CD3 Cells % CD4 Cells Absolute CD4 Count % CD8 Cells Absolute CD19 Count HIV-1 RNA PCR copies/ml HIV-1 RNA (PCR) log HIV-1 Genotyping Detected H 12/14/20 12/15/20 12/15/20 21:07 07:33 11:13 WBC RBC Hgb Hct MCV MCH Plt Count Lymph % (Auto) [place] % (Auto) [place] # (Auto) Seg Neutrophils % Seg Neutrophils # POC ABG pO2 ABG Hemoglobin ABG Oxyhemoglobin ABG Sodium ABG Glucose Carboxyhemoglobin Sodium Chloride Carbon Dioxide Glucose POC Glucose 402 H 249 H 344 H Hemoglobin A1c Calcium Iron Lactate Dehydrogenase C-Reactive Protein Total Protein Albumin Arterial Blood Glucose Lymph Enumerat CD4/CD8 % CD3 Cells % CD4 Cells Absolute CD4 Count % CD8 Cells Absolute CD19 Count HIV-1 RNA PCR copies/ml HIV-1 RNA (PCR) log HIV-1 Genotyping 12/15/20 12/15/20 12/16/20 17:09 21:34 07:06 WBC 14.7 H RBC 3.50 L Hgb 8.5 L Hct 26.3 L MCV 75 L MCH 24 L Plt Count 540 H Lymph % (Auto) 10.3 L [place] % (Auto) [place] # (Auto) 1.1 H Seg Neutrophils % 81.8 H Seg Neutrophils # 12.0 H POC ABG pO2 ABG Hemoglobin ABG Oxyhemoglobin ABG Sodium ABG Glucose Carboxyhemoglobin Sodium Chloride Carbon Dioxide Glucose POC Glucose 251 H 294 H Hemoglobin A1c Calcium Iron Lactate Dehydrogenase C-Reactive Protein Total Protein Albumin Arterial Blood Glucose Lymph Enumerat CD4/CD8 % CD3 Cells % CD4 Cells Absolute CD4 Count % CD8 Cells Absolute CD19 Count HIV-1 RNA PCR copies/ml HIV-1 RNA (PCR) log HIV-1 Genotyping 12/16/20 12/16/20 12/16/20 07:06 11:16 16:34 WBC RBC Hgb Hct MCV MCH Plt Count Lymph % (Auto) [place] % (Auto) [place] # (Auto) Seg Neutrophils % Seg Neutrophils # POC ABG pO2 ABG Hemoglobin ABG Oxyhemoglobin ABG Sodium ABG Glucose Carboxyhemoglobin Sodium 135 L Chloride Carbon Dioxide 21 L Glucose POC Glucose 138 H 354 H Hemoglobin A1c Calcium Iron Lactate Dehydrogenase C-Reactive Protein Total Protein Albumin Arterial Blood Glucose Lymph Enumerat CD4/CD8 % CD3 Cells % CD4 Cells Absolute CD4 Count % CD8 Cells Absolute CD19 Count HIV-1 RNA PCR copies/ml HIV-1 RNA (PCR) log HIV-1 Genotyping 12/16/20 12/17/20 12/17/20 22:05 11:05 17:36 WBC RBC Hgb Hct MCV MCH Plt Count Lymph % (Auto) [place] % (Auto) [place] # (Auto) Seg Neutrophils % Seg Neutrophils # POC ABG pO2 ABG Hemoglobin ABG Oxyhemoglobin ABG Sodium ABG Glucose Carboxyhemoglobin Sodium Chloride Carbon Dioxide Glucose POC Glucose 414 H 149 H 350 H Hemoglobin A1c Calcium Iron Lactate Dehydrogenase C-Reactive Protein Total Protein Albumin Arterial Blood Glucose Lymph Enumerat CD4/CD8 % CD3 Cells % CD4 Cells Absolute CD4 Count % CD8 Cells Absolute CD19 Count HIV-1 RNA PCR copies/ml HIV-1 RNA (PCR) log HIV-1 Genotyping 12/17/20 12/18/20 12/18/20 21:41 07:10 11:13 WBC RBC Hgb Hct MCV MCH Plt Count Lymph % (Auto) [place] % (Auto) [place] # (Auto) Seg Neutrophils % Seg Neutrophils # POC ABG pO2 ABG Hemoglobin ABG Oxyhemoglobin ABG Sodium ABG Glucose Carboxyhemoglobin Sodium Chloride Carbon Dioxide Glucose POC Glucose 434 H 222 H 247 H Hemoglobin A1c Calcium Iron Lactate Dehydrogenase C-Reactive Protein Total Protein Albumin Arterial Blood Glucose Lymph Enumerat CD4/CD8 % CD3 Cells % CD4 Cells Absolute CD4 Count % CD8 Cells Absolute CD19 Count HIV-1 RNA PCR copies/ml HIV-1 RNA (PCR) log HIV-1 Genotyping 12/18/20 12/18/20 12/19/20 16:09 21:44 07:30 WBC RBC Hgb Hct MCV MCH Plt Count Lymph % (Auto) [place] % (Auto) [place] # (Auto) Seg Neutrophils % Seg Neutrophils # POC ABG pO2 ABG Hemoglobin ABG Oxyhemoglobin ABG Sodium ABG Glucose Carboxyhemoglobin Sodium Chloride Carbon Dioxide Glucose POC Glucose 285 H 369 H 138 H Hemoglobin A1c Calcium Iron Lactate Dehydrogenase C-Reactive Protein Total Protein Albumin Arterial Blood Glucose Lymph Enumerat CD4/CD8 % CD3 Cells % CD4 Cells Absolute CD4 Count % CD8 Cells Absolute CD19 Count HIV-1 RNA PCR copies/ml HIV-1 RNA (PCR) log HIV-1 Genotyping 12/19/20 12/19/20 12/19/20 08:34 11:49 17:14 WBC RBC Hgb Hct MCV MCH Plt Count Lymph % (Auto) [place] % (Auto) [place] # (Auto) Seg Neutrophils % Seg Neutrophils # POC ABG pO2 ABG Hemoglobin ABG Oxyhemoglobin ABG Sodium ABG Glucose Carboxyhemoglobin Sodium Chloride Carbon Dioxide Glucose 112 H POC Glucose 187 H 385 H Hemoglobin A1c Calcium Iron Lactate Dehydrogenase C-Reactive Protein Total Protein Albumin Arterial Blood Glucose Lymph Enumerat CD4/CD8 % CD3 Cells % CD4 Cells Absolute CD4 Count % CD8 Cells Absolute CD19 Count HIV-1 RNA PCR copies/ml HIV-1 RNA (PCR) log HIV-1 Genotyping 12/19/20 12/20/20 12/20/20 21:15 08:06 10:54 WBC RBC Hgb Hct MCV MCH Plt Count Lymph % (Auto) [place] % (Auto) [place] # (Auto) Seg Neutrophils % Seg Neutrophils # POC ABG pO2 ABG Hemoglobin ABG Oxyhemoglobin ABG Sodium ABG Glucose Carboxyhemoglobin Sodium Chloride Carbon Dioxide Glucose POC Glucose 381 H 267 H 241 H Hemoglobin A1c Calcium Iron Lactate Dehydrogenase C-Reactive Protein Total Protein Albumin Arterial Blood Glucose Lymph Enumerat CD4/CD8 % CD3 Cells % CD4 Cells Absolute CD4 Count % CD8 Cells Absolute CD19 Count HIV-1 RNA PCR copies/ml HIV-1 RNA (PCR) log HIV-1 Genotyping 12/20/20 12/20/20 12/21/20 15:49 22:24 07:42 WBC RBC Hgb Hct MCV MCH Plt Count Lymph % (Auto) [place] % (Auto) [place] # (Auto) Seg Neutrophils % Seg Neutrophils # POC ABG pO2 ABG Hemoglobin ABG Oxyhemoglobin ABG Sodium ABG Glucose Carboxyhemoglobin Sodium Chloride Carbon Dioxide Glucose POC Glucose 333 H 326 H 158 H Hemoglobin A1c Calcium Iron Lactate Dehydrogenase C-Reactive Protein Total Protein Albumin Arterial Blood Glucose Lymph Enumerat CD4/CD8 % CD3 Cells % CD4 Cells Absolute CD4 Count % CD8 Cells Absolute CD19 Count HIV-1 RNA PCR copies/ml HIV-1 RNA (PCR) log HIV-1 Genotyping 12/21/20 12/21/20 12/21/20 10:42 16:45 21:27 WBC RBC Hgb Hct MCV MCH Plt Count Lymph % (Auto) [place] % (Auto) [place] # (Auto) Seg Neutrophils % Seg Neutrophils # POC ABG pO2 ABG Hemoglobin ABG Oxyhemoglobin ABG Sodium ABG Glucose Carboxyhemoglobin Sodium Chloride Carbon Dioxide Glucose POC Glucose 246 H 302 H 333 H Hemoglobin A1c Calcium Iron Lactate Dehydrogenase C-Reactive Protein Total Protein Albumin Arterial Blood Glucose Lymph Enumerat CD4/CD8 % CD3 Cells % CD4 Cells Absolute CD4 Count % CD8 Cells Absolute CD19 Count HIV-1 RNA PCR copies/ml HIV-1 RNA (PCR) log HIV-1 Genotyping 12/22/20 12/22/20 12/22/20 07:22 09:10 11:00 WBC RBC Hgb Hct MCV MCH Plt Count Lymph % (Auto) [place] % (Auto) [place] # (Auto) Seg Neutrophils % Seg Neutrophils # POC ABG pO2 ABG Hemoglobin ABG Oxyhemoglobin ABG Sodium ABG Glucose Carboxyhemoglobin Sodium 134 L Chloride 95.6 L Carbon Dioxide Glucose 212 H POC Glucose 113 H 302 H Hemoglobin A1c Calcium Iron Lactate Dehydrogenase C-Reactive Protein Total Protein Albumin Arterial Blood Glucose Lymph Enumerat CD4/CD8 % CD3 Cells % CD4 Cells Absolute CD4 Count % CD8 Cells Absolute CD19 Count HIV-1 RNA PCR copies/ml HIV-1 RNA (PCR) log HIV-1 Genotyping Allied health notes reviewed: nursing
[2020-12-23] MEDS: DEXTROSE 5% IV SCH ×2 (02:16→09:33)
[2020-12-23] MEDS: WATER IV SCH ×2 (02:16→09:33)
[2020-12-23] MEDS: SMX IV SCH ×2 (02:16→09:33)
[2020-12-23] MEDS: TMP IV SCH ×2 (02:16→09:33)
[2020-12-23] MEDS ORDERED: ALBUTEROL 2.5 MG/3 ML NEBU IH PRN (04:36)
[2020-12-23] MEDS: INSULIN GLARGINE 100 UNITS/ML SUB-Q SCH (09:03)
[2020-12-23] MEDS: INSULIN LISPRO 100 UNIT/ML SUB-Q SCH ×2 (09:03→13:20)
[2020-12-23] MEDS: ZINC SULFATE 220 MG CAP PO SCH (09:04)
[2020-12-23] MEDS: CHOLECALCIFEROL (VIT D3) 5,000 UNIT TAB PO SCH (09:04)
[2020-12-23] MEDS: NYSTATIN 500,000 UNIT/5 ML ORAL LIQD PO SCH (09:04)
[2020-12-23] MEDS: ASCORBIC ACID 500 MG TAB PO SCH (09:04)
[2020-12-23] MEDS: metFORMIN XR 500MG TAB PO SCH (09:04)
[2020-12-23] MEDS: predniSONE 10 MG TAB PO SCH (09:06)
[2020-12-23] MEDS: FAMOTIDINE 20 MG TAB PO SCH (09:07)
[2020-12-23] MEDS: MORPHINE 2 MG/1 ML INJ IV PRN (09:08)
[2020-12-23 12:57] VITALS: BP 119/71
--- NOTE | 2020-12-23 13:29 | Progress Note ---
Assessment and Plan Patient alert, awake. Patient is still on vapotherm, FIO2 40% and O2 saturation 94%. Says shortness of breath is better. No complaint of chest pain. Patient afebrile. Has leukocytosis. Patient has CTA of chest 12/06/20 reported No PE. Worsening bilateral ground glass opacities. Paiient Undergone bronchoscopy . Bronchoscopy specimen results positive for Pneumocystis. Chest xray done 12/13/20 reported improvement in appearence of chest compare to previous chest xray. Patient is on Prednisone, bactrim,Fluconazole. albuterol/atrovent aerosol treatments, Famotidine. - Patient Problems (1) Bilateral pneumonia Current Visit: Yes Status: Acute Plan to address problem: Bronchoscopy specimen reported positive for pneumocystis. Patient is on bactrim DS and Fluconazole. on Vapotherm, FIO2 40%. (2) History of HIV or AIDS Current Visit: Yes Status: Acute Plan to address problem: Management as per infectious diseases. (3) Person under investigation for COVID-19 Current Visit: Yes Status: Acute Plan to address problem: Patient [place] virus PCR negative. (4) T2DM (type 2 diabetes mellitus) Current Visit: Yes Status: Chronic Qualifiers: Diabetes mellitus roaster[place] insulin use: unspecified senior living insulin use status Plan to address problem: Management as per primary care. (5) Atrial fibrillation with RVR Current Visit: No Status: Acute Plan to address problem: Management as per cardiology. (6) CHF (congestive heart failure) Current Visit: No Status: Chronic Qualifiers: Heart failure type: combined systolic and diastolic Plan to address problem: Management as per cardiology. Subjective Date of service: 12/23/20 Principal diagnosis: Sepsis; Ac hypoxemic resp failure; PJP Pneumonia; CHF; PUI COVID-19; HIV+ve Interval history: Patient alert, awake. Patient is still on vapotherm, FIO2 40% and O2 saturation 94%. Says shortness of breath is better. No complaint of chest pain. Patient afebrile. Has leukocytosis. Patient has CTA of chest 12/06/20 reported No PE. Worsening bilateral ground glass opacities. Paiient Undergone bronchoscopy . Bronchoscopy specimen results positive for Pneumocystis. Chest xray done 12/13/20 reported improvement in appearence of chest compare to previous chest xray. Patient is on Prednisone, bactrim,Fluconazole. albuterol/atrovent aerosol treatments, Famotidine. Objective Vital Signs - 12hr 12/23/20 12/23/20 12/23/20 04:08 06:04 11:22 Temperature 98.1 F 99.2 F Pulse Rate 102 H 116 H Respiratory 18 19 Rate Blood Pressure 132/71 119/71 O2 Sat by Pulse 98 93 90 Oximetry Constitutional: no acute distress, alert, other (young female with normal resp iratory effort at rest ) Eyes: non-icteric ENT: oropharynx moist Neck: supple, no lymphadenopathy, no JVD Effort: mildly labored Ascultation: Bilateral: diminished breath sounds, rales (scant), rhonchi Percussion: Bilateral: not dull Cardiovascular: regular rate and rhythm, other (S1,S2) Gastrointestinal: normoactive bowel sounds, soft, non-tender, non-distended Integumentary: normal Extremities: no cyanosis, no edema, pulses normal, no ischemia or petechiae Neurologic: normal mental status, non-focal exam, pupils equal and round, CN II- XII normal, motor strength normal and Psychiatric: mood appropriate, affect normal CBC and BMP: 12/16/20 07:06 12/22/20 09:10 ABG, PT/INR, D-dimer: ABG ABG pH 7.441 (7.320-7.450) 12/13/20 15:33 POC ABG pCO2 33.7 mmHg (32.0-48.0) 12/13/20 15:33 POC ABG pO2 70.0 mmHg (83-108) L 12/13/20 15:33 POC ABG HCO3 22.4 12/13/20 15:33 ABG O2 Saturation 94.9 (0-100) 12/13/20 15:33 PT/INR, D-dimer D-Dimer 185.58 ng/mlDDU (0-234) 12/06/20 15:24 Abnormal lab findings: Abnormal Labs 12/06/20 12/06/20 12/06/20 14:04 14:04 15:24 WBC RBC 3.57 L Hgb 8.8 L Hct 27.3 L MCV 76 L MCH 25 L Plt Count Lymph % (Auto) Gates % (Auto) 8.5 H Gates # (Auto) Seg Neutrophils % Seg Neutrophils # POC ABG pO2 ABG Hemoglobin ABG Oxyhemoglobin ABG Sodium ABG Glucose Carboxyhemoglobin Sodium 136 L Chloride Carbon Dioxide Glucose 149 H POC Glucose Hemoglobin A1c Calcium Iron Lactate Dehydrogenase 418 H C-Reactive Protein 7.10 H Total Protein 8.6 H Albumin 2.9 L Arterial Blood Glucose Lymph Enumerat CD4/CD8 % CD3 Cells % CD4 Cells Absolute CD4 Count % CD8 Cells Absolute CD19 Count HIV-1 RNA PCR copies/ml HIV-1 RNA (PCR) log HIV-1 Genotyping 12/07/20 12/07/20 12/07/20 02:12 02:12 02:12 WBC RBC 3.61 L Hgb 9.2 L Hct 27.8 L MCV 77 L MCH 26 L Plt Count Lymph % (Auto) Gates % (Auto) 9.4 H Gates # (Auto) Seg Neutrophils % Seg Neutrophils # POC ABG pO2 ABG Hemoglobin ABG Oxyhemoglobin ABG Sodium ABG Glucose Carboxyhemoglobin Sodium Chloride Carbon Dioxide Glucose 123 H POC Glucose Hemoglobin A1c 8.2 H Calcium 8.3 L Iron Lactate Dehydrogenase C-Reactive Protein Total Protein 8.3 H Albumin 3.2 L Arterial Blood Glucose Lymph Enumerat CD4/CD8 % CD3 Cells % CD4 Cells Absolute CD4 Count % CD8 Cells Absolute CD19 Count HIV-1 RNA PCR copies/ml HIV-1 RNA (PCR) log HIV-1 Genotyping 12/07/20 12/07/20 12/07/20 07:28 07:48 11:48 WBC RBC Hgb Hct MCV MCH Plt Count Lymph % (Auto) Gates % (Auto) Gates # (Auto) Seg Neutrophils % Seg Neutrophils # POC ABG pO2 ABG Hemoglobin ABG Oxyhemoglobin ABG Sodium ABG Glucose Carboxyhemoglobin Sodium Chloride Carbon Dioxide Glucose POC Glucose 290 H 217 H Hemoglobin A1c Calcium Iron 22 L Lactate Dehydrogenase C-Reactive Protein Total Protein Albumin Arterial Blood Glucose Lymph Enumerat CD4/CD8 % CD3 Cells % CD4 Cells Absolute CD4 Count % CD8 Cells Absolute CD19 Count HIV-1 RNA PCR copies/ml HIV-1 RNA (PCR) log HIV-1 Genotyping 12/07/20 12/07/20 12/08/20 16:46 22:36 08:50 WBC RBC Hgb Hct MCV MCH Plt Count Lymph % (Auto) Gates % (Auto) Gates # (Auto) Seg Neutrophils % Seg Neutrophils # POC ABG pO2 ABG Hemoglobin ABG Oxyhemoglobin ABG Sodium ABG Glucose Carboxyhemoglobin Sodium Chloride Carbon Dioxide Glucose POC Glucose 203 H 189 H 293 H Hemoglobin A1c Calcium Iron Lactate Dehydrogenase C-Reactive Protein Total Protein Albumin Arterial Blood Glucose Lymph Enumerat CD4/CD8 % CD3 Cells % CD4 Cells Absolute CD4 Count % CD8 Cells Absolute CD19 Count HIV-1 RNA PCR copies/ml HIV-1 RNA (PCR) log HIV-1 Genotyping 12/08/20 12/08/20 12/08/20 11:35 16:18 16:39 WBC RBC Hgb Hct MCV MCH Plt Count Lymph % (Auto) Gates % (Auto) Gates # (Auto) Seg Neutrophils % Seg Neutrophils # POC ABG pO2 ABG Hemoglobin 9.4 L ABG Oxyhemoglobin ABG Sodium 132.7 L ABG Glucose 303 H Carboxyhemoglobin 0.4 L Sodium Chloride Carbon Dioxide Glucose POC Glucose 360 H 288 H Hemoglobin A1c Calcium Iron Lactate Dehydrogenase C-Reactive Protein Total Protein Albumin Arterial Blood Glucose 303 H Lymph Enumerat CD4/CD8 % CD3 Cells % CD4 Cells Absolute CD4 Count % CD8 Cells Absolute CD19 Count HIV-1 RNA PCR copies/ml HIV-1 RNA (PCR) log HIV-1 Genotyping 12/08/20 12/09/20 12/09/20 21:08 13:32 21:43 WBC RBC Hgb Hct MCV MCH Plt Count Lymph % (Auto) Gates % (Auto) Gates # (Auto) Seg Neutrophils % Seg Neutrophils # POC ABG pO2 ABG Hemoglobin ABG Oxyhemoglobin ABG Sodium ABG Glucose Carboxyhemoglobin Sodium Chloride Carbon Dioxide Glucose POC Glucose 300 H 394 H Hemoglobin A1c Calcium Iron Lactate Dehydrogenase 273 H C-Reactive Protein Total Protein Albumin Arterial Blood Glucose Lymph Enumerat CD4/CD8 % CD3 Cells % CD4 Cells Absolute CD4 Count % CD8 Cells Absolute CD19 Count HIV-1 RNA PCR copies/ml HIV-1 RNA (PCR) log HIV-1 Genotyping 12/10/20 12/10/20 12/10/20 07:37 11:04 15:37 WBC RBC Hgb Hct MCV MCH Plt Count Lymph % (Auto) Gates % (Auto) Gates # (Auto) Seg Neutrophils % Seg Neutrophils # POC ABG pO2 ABG Hemoglobin ABG Oxyhemoglobin ABG Sodium ABG Glucose Carboxyhemoglobin Sodium Chloride Carbon Dioxide Glucose POC Glucose 431 H 386 H 339 H Hemoglobin A1c Calcium Iron Lactate Dehydrogenase C-Reactive Protein Total Protein Albumin Arterial Blood Glucose Lymph Enumerat CD4/CD8 % CD3 Cells % CD4 Cells Absolute CD4 Count % CD8 Cells Absolute CD19 Count HIV-1 RNA PCR copies/ml HIV-1 RNA (PCR) log HIV-1 Genotyping 12/10/20 12/11/20 12/11/20 21:09 07:24 10:56 WBC RBC Hgb Hct MCV MCH Plt Count Lymph % (Auto) Gates % (Auto) Gates # (Auto) Seg Neutrophils % Seg Neutrophils # POC ABG pO2 ABG Hemoglobin ABG Oxyhemoglobin ABG Sodium ABG Glucose Carboxyhemoglobin Sodium Chloride Carbon Dioxide Glucose POC Glucose 412 H 399 H 431 H Hemoglobin A1c Calcium Iron Lactate Dehydrogenase C-Reactive Protein Total Protein Albumin Arterial Blood Glucose Lymph Enumerat CD4/CD8 % CD3 Cells % CD4 Cells Absolute CD4 Count % CD8 Cells Absolute CD19 Count HIV-1 RNA PCR copies/ml HIV-1 RNA (PCR) log HIV-1 Genotyping 12/11/20 12/11/20 12/12/20 16:26 22:31 00:53 WBC RBC Hgb Hct MCV MCH Plt Count Lymph % (Auto) Gates % (Auto) Gates # (Auto) Seg Neutrophils % Seg Neutrophils # POC ABG pO2 ABG Hemoglobin ABG Oxyhemoglobin ABG Sodium ABG Glucose Carboxyhemoglobin Sodium Chloride Carbon Dioxide Glucose POC Glucose 320 H 361 H 255 H Hemoglobin A1c Calcium Iron Lactate Dehydrogenase C-Reactive Protein Total Protein Albumin Arterial Blood Glucose Lymph Enumerat CD4/CD8 % CD3 Cells % CD4 Cells Absolute CD4 Count % CD8 Cells Absolute CD19 Count HIV-1 RNA PCR copies/ml HIV-1 RNA (PCR) log HIV-1 Genotyping 12/12/20 12/12/20 12/12/20 07:16 10:47 16:40 WBC RBC Hgb Hct MCV MCH Plt Count Lymph % (Auto) Gates % (Auto) Gates # (Auto) Seg Neutrophils % Seg Neutrophils # POC ABG pO2 ABG Hemoglobin ABG Oxyhemoglobin ABG Sodium ABG Glucose Carboxyhemoglobin Sodium Chloride Carbon Dioxide Glucose POC Glucose 171 H 156 H 146 H Hemoglobin A1c Calcium Iron Lactate Dehydrogenase C-Reactive Protein Total Protein Albumin Arterial Blood Glucose Lymph Enumerat CD4/CD8 % CD3 Cells % CD4 Cells Absolute CD4 Count % CD8 Cells Absolute CD19 Count HIV-1 RNA PCR copies/ml HIV-1 RNA (PCR) log HIV-1 Genotyping 12/12/20 12/13/20 12/13/20 22:04 07:29 08:19 WBC RBC Hgb Hct MCV MCH Plt Count Lymph % (Auto) Gates % (Auto) Gates # (Auto) Seg Neutrophils % Seg Neutrophils # POC ABG pO2 ABG Hemoglobin ABG Oxyhemoglobin ABG Sodium ABG Glucose Carboxyhemoglobin Sodium Chloride Carbon Dioxide Glucose POC Glucose 214 H 211 H Hemoglobin A1c Calcium Iron Lactate Dehydrogenase C-Reactive Protein Total Protein Albumin Arterial Blood Glucose Lymph Enumerat CD4/CD8 0.02 L % CD3 Cells 90 H % CD4 Cells 2 L Absolute CD4 Count 22 L % CD8 Cells 88 H Absolute CD19 Count 72 L HIV-1 RNA PCR copies/ml HIV-1 RNA (PCR) log HIV-1 Genotyping 12/13/20 12/13/20 12/13/20 08:19 11:09 11:23 WBC 13.3 H RBC Hgb 9.3 L Hct 29.6 L MCV 76 L MCH 24 L Plt Count 653 H Lymph % (Auto) Gates % (Auto) Gates # (Auto) 0.9 H Seg Neutrophils % 74.8 H Seg Neutrophils # 9.9 H POC ABG pO2 ABG Hemoglobin ABG Oxyhemoglobin ABG Sodium ABG Glucose Carboxyhemoglobin Sodium Chloride Carbon Dioxide Glucose POC Glucose 255 H Hemoglobin A1c Calcium Iron Lactate Dehydrogenase C-Reactive Protein Total Protein Albumin Arterial Blood Glucose Lymph Enumerat CD4/CD8 % CD3 Cells % CD4 Cells Absolute CD4 Count % CD8 Cells Absolute CD19 Count HIV-1 RNA PCR copies/ml 857230 H HIV-1 RNA (PCR) log 5.17 H HIV-1 Genotyping 12/13/20 12/13/20 12/13/20 15:33 16:00 20:59 WBC RBC Hgb Hct MCV MCH Plt Count Lymph % (Auto) Gates % (Auto) Gates # (Auto) Seg Neutrophils % Seg Neutrophils # POC ABG pO2 70.0 L ABG Hemoglobin 10.4 L ABG Oxyhemoglobin 93.9 L ABG Sodium 131.5 L ABG Glucose 239 H Carboxyhemoglobin Sodium Chloride Carbon Dioxide Glucose POC Glucose 225 H 267 H Hemoglobin A1c Calcium Iron Lactate Dehydrogenase C-Reactive Protein Total Protein Albumin Arterial Blood Glucose 239 H Lymph Enumerat CD4/CD8 % CD3 Cells % CD4 Cells Absolute CD4 Count % CD8 Cells Absolute CD19 Count HIV-1 RNA PCR copies/ml HIV-1 RNA (PCR) log HIV-1 Genotyping 12/14/20 12/14/20 12/14/20 07:15 07:15 07:41 WBC 11.5 H RBC 3.54 L Hgb 8.5 L Hct 26.5 L MCV 75 L MCH 24 L Plt Count 513 H Lymph % (Auto) Gates % (Auto) Gates # (Auto) Seg Neutrophils % Seg Neutrophils # POC ABG pO2 ABG Hemoglobin ABG Oxyhemoglobin ABG Sodium ABG Glucose Carboxyhemoglobin Sodium 134 L Chloride Carbon Dioxide Glucose 154 H POC Glucose 162 H Hemoglobin A1c Calcium Iron Lactate Dehydrogenase C-Reactive Protein Total Protein Albumin Arterial Blood Glucose Lymph Enumerat CD4/CD8 % CD3 Cells % CD4 Cells Absolute CD4 Count % CD8 Cells Absolute CD19 Count HIV-1 RNA PCR copies/ml HIV-1 RNA (PCR) log HIV-1 Genotyping 12/14/20 12/14/20 12/14/20 11:58 15:06 17:16 WBC RBC Hgb Hct MCV MCH Plt Count Lymph % (Auto) Gates % (Auto) Gates # (Auto) Seg Neutrophils % Seg Neutrophils # POC ABG pO2 ABG Hemoglobin ABG Oxyhemoglobin ABG Sodium ABG Glucose Carboxyhemoglobin Sodium Chloride Carbon Dioxide Glucose POC Glucose 260 H 314 H Hemoglobin A1c Calcium Iron Lactate Dehydrogenase C-Reactive Protein Total Protein Albumin Arterial Blood Glucose Lymph Enumerat CD4/CD8 % CD3 Cells % CD4 Cells Absolute CD4 Count % CD8 Cells Absolute CD19 Count HIV-1 RNA PCR copies/ml HIV-1 RNA (PCR) log HIV-1 Genotyping Detected H 12/14/20 12/15/20 12/15/20 21:07 07:33 11:13 WBC RBC Hgb Hct MCV MCH Plt Count Lymph % (Auto) Gates % (Auto) Gates # (Auto) Seg Neutrophils % Seg Neutrophils # POC ABG pO2 ABG Hemoglobin ABG Oxyhemoglobin ABG Sodium ABG Glucose Carboxyhemoglobin Sodium Chloride Carbon Dioxide Glucose POC Glucose 402 H 249 H 344 H Hemoglobin A1c Calcium Iron Lactate Dehydrogenase C-Reactive Protein Total Protein Albumin Arterial Blood Glucose Lymph Enumerat CD4/CD8 % CD3 Cells % CD4 Cells Absolute CD4 Count % CD8 Cells Absolute CD19 Count HIV-1 RNA PCR copies/ml HIV-1 RNA (PCR) log HIV-1 Genotyping 12/15/20 12/15/20 12/16/20 17:09 21:34 07:06 WBC 14.7 H RBC 3.50 L Hgb 8.5 L Hct 26.3 L MCV 75 L MCH 24 L Plt Count 540 H Lymph % (Auto) 10.3 L Gates % (Auto) Gates # (Auto) 1.1 H Seg Neutrophils % 81.8 H Seg Neutrophils # 12.0 H POC ABG pO2 ABG Hemoglobin ABG Oxyhemoglobin ABG Sodium ABG Glucose Carboxyhemoglobin Sodium Chloride Carbon Dioxide Glucose POC Glucose 251 H 294 H Hemoglobin A1c Calcium Iron Lactate Dehydrogenase C-Reactive Protein Total Protein Albumin Arterial Blood Glucose Lymph Enumerat CD4/CD8 % CD3 Cells % CD4 Cells Absolute CD4 Count % CD8 Cells Absolute CD19 Count HIV-1 RNA PCR copies/ml HIV-1 RNA (PCR) log HIV-1 Genotyping 12/16/20 12/16/20 12/16/20 07:06 11:16 16:34 WBC RBC Hgb Hct MCV MCH Plt Count Lymph % (Auto) Gates % (Auto) Gates # (Auto) Seg Neutrophils % Seg Neutrophils # POC ABG pO2 ABG Hemoglobin ABG Oxyhemoglobin ABG Sodium ABG Glucose Carboxyhemoglobin Sodium 135 L Chloride Carbon Dioxide 21 L Glucose POC Glucose 138 H 354 H Hemoglobin A1c Calcium Iron Lactate Dehydrogenase C-Reactive Protein Total Protein Albumin Arterial Blood Glucose Lymph Enumerat CD4/CD8 % CD3 Cells % CD4 Cells Absolute CD4 Count % CD8 Cells Absolute CD19 Count HIV-1 RNA PCR copies/ml HIV-1 RNA (PCR) log HIV-1 Genotyping 12/16/20 12/17/20 12/17/20 22:05 11:05 17:36 WBC RBC Hgb Hct MCV MCH Plt Count Lymph % (Auto) Gates % (Auto) Gates # (Auto) Seg Neutrophils % Seg Neutrophils # POC ABG pO2 ABG Hemoglobin ABG Oxyhemoglobin ABG Sodium ABG Glucose Carboxyhemoglobin Sodium Chloride Carbon Dioxide Glucose POC Glucose 414 H 149 H 350 H Hemoglobin A1c Calcium Iron Lactate Dehydrogenase C-Reactive Protein Total Protein Albumin Arterial Blood Glucose Lymph Enumerat CD4/CD8 % CD3 Cells % CD4 Cells Absolute CD4 Count % CD8 Cells Absolute CD19 Count HIV-1 RNA PCR copies/ml HIV-1 RNA (PCR) log HIV-1 Genotyping 12/17/20 12/18/20 12/18/20 21:41 07:10 11:13 WBC RBC Hgb Hct MCV MCH Plt Count Lymph % (Auto) Gates % (Auto) Gates # (Auto) Seg Neutrophils % Seg Neutrophils # POC ABG pO2 ABG Hemoglobin ABG Oxyhemoglobin ABG Sodium ABG Glucose Carboxyhemoglobin Sodium Chloride Carbon Dioxide Glucose POC Glucose 434 H 222 H 247 H Hemoglobin A1c Calcium Iron Lactate Dehydrogenase C-Reactive Protein Total Protein Albumin Arterial Blood Glucose Lymph Enumerat CD4/CD8 % CD3 Cells % CD4 Cells Absolute CD4 Count % CD8 Cells Absolute CD19 Count HIV-1 RNA PCR copies/ml HIV-1 RNA (PCR) log HIV-1 Genotyping 12/18/20 12/18/20 12/19/20 16:09 21:44 07:30 WBC RBC Hgb Hct MCV MCH Plt Count Lymph % (Auto) Gates % (Auto) Gates # (Auto) Seg Neutrophils % Seg Neutrophils # POC ABG pO2 ABG Hemoglobin ABG Oxyhemoglobin ABG Sodium ABG Glucose Carboxyhemoglobin Sodium Chloride Carbon Dioxide Glucose POC Glucose 285 H 369 H 138 H Hemoglobin A1c Calcium Iron Lactate Dehydrogenase C-Reactive Protein Total Protein Albumin Arterial Blood Glucose Lymph Enumerat CD4/CD8 % CD3 Cells % CD4 Cells Absolute CD4 Count % CD8 Cells Absolute CD19 Count HIV-1 RNA PCR copies/ml HIV-1 RNA (PCR) log HIV-1 Genotyping 12/19/20 12/19/20 12/19/20 08:34 11:49 17:14 WBC RBC Hgb Hct MCV MCH Plt Count Lymph % (Auto) Gates % (Auto) Gates # (Auto) Seg Neutrophils % Seg Neutrophils # POC ABG pO2 ABG Hemoglobin ABG Oxyhemoglobin ABG Sodium ABG Glucose Carboxyhemoglobin Sodium Chloride Carbon Dioxide Glucose 112 H POC Glucose 187 H 385 H Hemoglobin A1c Calcium Iron Lactate Dehydrogenase C-Reactive Protein Total Protein Albumin Arterial Blood Glucose Lymph Enumerat CD4/CD8 % CD3 Cells % CD4 Cells Absolute CD4 Count % CD8 Cells Absolute CD19 Count HIV-1 RNA PCR copies/ml HIV-1 RNA (PCR) log HIV-1 Genotyping 12/19/20 12/20/20 12/20/20 21:15 08:06 10:54 WBC RBC Hgb Hct MCV MCH Plt Count Lymph % (Auto) Gates % (Auto) Gates # (Auto) Seg Neutrophils % Seg Neutrophils # POC ABG pO2 ABG Hemoglobin ABG Oxyhemoglobin ABG Sodium ABG Glucose Carboxyhemoglobin Sodium Chloride Carbon Dioxide Glucose POC Glucose 381 H 267 H 241 H Hemoglobin A1c Calcium Iron Lactate Dehydrogenase C-Reactive Protein Total Protein Albumin Arterial Blood Glucose Lymph Enumerat CD4/CD8 % CD3 Cells % CD4 Cells Absolute CD4 Count % CD8 Cells Absolute CD19 Count HIV-1 RNA PCR copies/ml HIV-1 RNA (PCR) log HIV-1 Genotyping 12/20/20 12/20/20 12/21/20 15:49 22:24 07:42 WBC RBC Hgb Hct MCV MCH Plt Count Lymph % (Auto) Gates % (Auto) Gates # (Auto) Seg Neutrophils % Seg Neutrophils # POC ABG pO2 ABG Hemoglobin ABG Oxyhemoglobin ABG Sodium ABG Glucose Carboxyhemoglobin Sodium Chloride Carbon Dioxide Glucose POC Glucose 333 H 326 H 158 H Hemoglobin A1c Calcium Iron Lactate Dehydrogenase C-Reactive Protein Total Protein Albumin Arterial Blood Glucose Lymph Enumerat CD4/CD8 % CD3 Cells % CD4 Cells Absolute CD4 Count % CD8 Cells Absolute CD19 Count HIV-1 RNA PCR copies/ml HIV-1 RNA (PCR) log HIV-1 Genotyping 12/21/20 12/21/20 12/21/20 10:42 16:45 21:27 WBC RBC Hgb Hct MCV MCH Plt Count Lymph % (Auto) Gates % (Auto) Gates # (Auto) Seg Neutrophils % Seg Neutrophils # POC ABG pO2 ABG Hemoglobin ABG Oxyhemoglobin ABG Sodium ABG Glucose Carboxyhemoglobin Sodium Chloride Carbon Dioxide Glucose POC Glucose 246 H 302 H 333 H Hemoglobin A1c Calcium Iron Lactate Dehydrogenase C-Reactive Protein Total Protein Albumin Arterial Blood Glucose Lymph Enumerat CD4/CD8 % CD3 Cells % CD4 Cells Absolute CD4 Count % CD8 Cells Absolute CD19 Count HIV-1 RNA PCR copies/ml HIV-1 RNA (PCR) log HIV-1 Genotyping 12/22/20 12/22/20 12/22/20 07:22 09:10 11:00 WBC RBC Hgb Hct MCV MCH Plt Count Lymph % (Auto) Gates % (Auto) Gates # (Auto) Seg Neutrophils % Seg Neutrophils # POC ABG pO2 ABG Hemoglobin ABG Oxyhemoglobin ABG Sodium ABG Glucose Carboxyhemoglobin Sodium 134 L Chloride 95.6 L Carbon Dioxide Glucose 212 H POC Glucose 113 H 302 H Hemoglobin A1c Calcium Iron Lactate Dehydrogenase C-Reactive Protein Total Protein Albumin Arterial Blood Glucose Lymph Enumerat CD4/CD8 % CD3 Cells % CD4 Cells Absolute CD4 Count % CD8 Cells Absolute CD19 Count HIV-1 RNA PCR copies/ml HIV-1 RNA (PCR) log HIV-1 Genotyping 12/22/20 12/22/20 12/23/20 17:02 21:21 07:43 WBC RBC Hgb Hct MCV MCH Plt Count Lymph % (Auto) Gates % (Auto) Gates # (Auto) Seg Neutrophils % Seg Neutrophils # POC ABG pO2 ABG Hemoglobin ABG Oxyhemoglobin ABG Sodium ABG Glucose Carboxyhemoglobin Sodium Chloride Carbon Dioxide Glucose POC Glucose 380 H 276 H 253 H Hemoglobin A1c Calcium Iron Lactate Dehydrogenase C-Reactive Protein Total Protein Albumin Arterial Blood Glucose Lymph Enumerat CD4/CD8 % CD3 Cells % CD4 Cells Absolute CD4 Count % CD8 Cells Absolute CD19 Count HIV-1 RNA PCR copies/ml HIV-1 RNA (PCR) log HIV-1 Genotyping 12/23/20 11:20 WBC RBC Hgb Hct MCV MCH Plt Count Lymph % (Auto) Gates % (Auto) Gates # (Auto) Seg Neutrophils % Seg Neutrophils # POC ABG pO2 ABG Hemoglobin ABG Oxyhemoglobin ABG Sodium ABG Glucose Carboxyhemoglobin Sodium Chloride Carbon Dioxide Glucose POC Glucose 315 H Hemoglobin A1c Calcium Iron Lactate Dehydrogenase C-Reactive Protein Total Protein Albumin Arterial Blood Glucose Lymph Enumerat CD4/CD8 % CD3 Cells % CD4 Cells Absolute CD4 Count % CD8 Cells Absolute CD19 Count HIV-1 RNA PCR copies/ml HIV-1 RNA (PCR) log HIV-1 Genotyping Allied health notes reviewed: nursing
== END 2020-12-23 14:20 | disposition home or self-care (01) | DRG 974 ==
LOC: ED 13:01 → 3A 15:31 → IMCU 12-17 16:31 → 3A 12-19 22:05
PROVIDERS: ADMIT Internal Medicine; ATTEND Internal Medicine
PROC: 4A033R1 Measurement of Arterial Saturation, Peripheral, Percutaneous Approach (ICD-10-PCS; principal; 2020-12-08)
PROC: 0B9F8ZX Drainage of Right Lower Lung Lobe, Via Natural or Artificial Opening Endoscopic, Diagnostic (ICD-10-PCS; 2020-12-12)
PROC: 0BBF8ZX Excision of Right Lower Lung Lobe, Via Natural or Artificial Opening Endoscopic, Diagnostic (ICD-10-PCS; 2020-12-12)
PROC: 0B9J8ZX Drainage of Left Lower Lung Lobe, Via Natural or Artificial Opening Endoscopic, Diagnostic (ICD-10-PCS; 2020-12-12)
PROC: 0B9G8ZX Drainage of Left Upper Lung Lobe, Via Natural or Artificial Opening Endoscopic, Diagnostic (ICD-10-PCS; 2020-12-12)
DX: A41.9 Sepsis, unspecified organism (principal); B20 Human immunodeficiency virus [HIV] disease; J96.01 Acute respiratory failure with hypoxia; J18.9 Pneumonia, unspecified organism; R65.20 Severe sepsis without septic shock; I50.42 Chronic combined systolic (congestive) and diastolic (congestive) heart failure; Z20.822 Contact with and (suspected) exposure to COVID-19; E11.8 Type 2 diabetes mellitus with unspecified complications; I48.91 Unspecified atrial fibrillation; B37.0 Candidal stomatitis; K80.20 Calculus of gallbladder without cholecystitis without obstruction; I11.0 Hypertensive heart disease with heart failure; R53.81 Other malaise; D50.8 Other iron deficiency anemias; Z90.710 Acquired absence of both cervix and uterus; Z88.0 Allergy status to penicillin; Z79.899 Other long term (current) drug therapy
CPT/HCPCS: 36415; 36600; 71045; 71275; 74177; 80048; 80053; 81001; 82024; 82140; 82607; 82728; 82747; 82805; 82962; 83036; 83550; 83615; 83880; 84145; 84484; 84703; 85025; 85027; 85379; 86038; 86140; 87040; 87086; 87102; 87116; 87220; 87536; 87901; 88104; 88112; 88305; 88312; 88341; 88342; 93306; 94640; 96374; 96375; G0378; J0171; J0456; J0692; J0696; J1100; J1650; J1815; J2270; J2405; J2704; J2765; J2930; J3010; J3490; J7030; J7040; J7060; J7512; Q9967; U0003

== ENCOUNTER 2021-04-24 14:34 | Emergency (ER) | payer MEDICAID ==
[2021-04-24 16:06] LABS: Basophils % (Auto) 1.1 % (0.0-1.8); Eosinophils % (Auto) 0.5 % (0.0-4.3); Hematocrit 28.2 % (30.3-42.9); Hemoglobin 8.7 gm/dl (10.1-14.3); Lymphocytes # (Auto) 1.2 K/mm3 (1.2-5.4); Mean Corpuscular HGB Conc 31 % (30-34); Mean Corpuscular Volume 71 fl (79-97); Monocytes # (Auto) 0.5 K/mm3 (0.0-0.8); Monocytes % (Auto) 12.5 % (0.0-7.3); Platelet Count 269 K/mm3 (140-440); Red Blood Count 3.99 M/mm3 (3.65-5.03); Red Cell Distribution Width 16.6 % (13.2-15.2)
[2021-04-24 16:14] LABS: Blood Urea Nitrogen 6 mg/dL (7-17); Calcium 8.2 mg/dL (8.4-10.2); Hemolysis Index 1
[2021-04-24 16:22] LABS: BUN/Creatinine Ratio 10
--- NOTE | 2021-04-24 16:56 | Emergency Department Report ---
ED General Adult HPI - General Chief complaint: Dizziness Stated complaint: HYPERGLYCEMIA Time Seen by Provider: 04/24/21 15:03 Source: EMS Mode of arrival: Stretcher Limitations: No Limitations - History of Present Illness Initial comments: 36-year-old female, history of HIV, presents to ED for evaluation. Patient was seen at an urgent care and sent to the ED for further evaluation. Patient states she went to the urgent care because she has been having headaches, dizziness, blurred vision in her right eye, and numbness in her right hand x2 weeks. Patient reports history of type 2 diabetes. States she has not been taking her Metformin. Patient states while at the urgent care, the provider told her that she was stuttering during the evaluation and proceeded to tell the patient that she had 2 strokes while being evaluated. Glucose is also elevated while at urgent care. Patient was sent to the ED for this reason. Patient denies any slurred speech, facial droop, extremity weakness. -: week(s) (2) Quality: aching Consistency: intermittent Improves with: none Worsens with: none Associated Symptoms: headaches. denies: fever/chills, nausea/vomiting, shortness of breath, weakness - Related Data Previous Rx's Medication Instructions Recorded Last Taken Type Acetaminophen [Acetaminophen TAB] 650 mg PO Q4H PRN tablet 12/22/20 Unknown Rx Ascorbic Acid [Vitamin C] 1,000 mg PO BID #30 tablet 12/22/20 Unknown Rx Azithromycin [Zithromax TAB] 500 mg PO QDAY #2 tablet 12/22/20 Unknown Rx Cholecalciferol (Vitamin D3) 5,000 unit PO DAILY #30 tablet 12/22/20 Unknown Rx [Vitamin D3] Darunavir/Cob/Emtri/Tenof Alaf 1 each PO DAILY #30 tablet 12/22/20 Unknown Rx [Symtuza 519-181-546-10 mg Tab] Dolutegravir [Tivicay] 50 mg PO DAILY #30 tablet 12/22/20 Unknown Rx Famotidine [Pepcid] 20 mg PO BID #60 tablet 12/22/20 Unknown Rx Insulin Glargine [Lantus VIAL] 33 units SUB-Q QAMDIAB #20 units 12/22/20 Unknown Rx Metformin HCl [metFORMIN ER 500 mg PO DAILY #30 tab.er.24 12/22/20 Unknown Rx Osmotic] Nystatin [Nystatin SUSP] 100,000 unit PO TID #20 udc 12/22/20 Unknown Rx Ondansetron [Zofran ODT TAB] 4 mg PO Q8HR PRN #14 tab.rapdis 12/22/20 Unknown Rx Sulfamethoxazole/Trimethoprim 1 each PO TID #126 tablet 12/22/20 Unknown Rx [Bactrim DS TAB] Zinc Sulfate 220 mg PO DAILY #10 capsule 12/22/20 Unknown Rx Zolpidem [Ambien] 5 mg PO QHS PRN #10 tablet 12/22/20 Unknown Rx oxyCODONE /ACETAMINOPHEN [Percocet 2 tab PO Q6H PRN #14 tablet 12/22/20 Unknown Rx 5/325 mg] polyethylene glycoL 3350 [Miralax 17 gm PO QDAY PRN #10 powd.pack 12/22/20 Unknown Rx 3350] predniSONE 20 mg PO QDAY #30 tablet 12/22/20 Unknown Rx traMADoL [Ultram 50 MG tab] 50 mg PO Q8HR PRN #15 tablet 12/22/20 Unknown Rx Allergies Allergy/AdvReac Type Severity Reaction Status Date / Time Penicillins Allergy Swelling Verified 11/13/20 16:58 ED Review of Systems ROS: Stated complaint: HYPERGLYCEMIA Other details as noted in HPI Comment: All other systems reviewed and negative Constitutional: denies: fever Eyes: vision change Respiratory: denies: shortness of breath Cardiovascular: denies: chest pain Neurological: headache, paresthesias. denies: weakness ED Past Medical Hx - Past Medical History Previous Medical History?: Yes Hx Hypertension: No Hx Heart Attack/AMI: No Hx Congestive Heart Failure: Yes Hx Diabetes: No Hx Liver Disease: No Hx Renal Disease: No Hx Asthma: No Hx COPD: No Hx HIV: Yes Additional medical history: HIV positive - Surgical History Past Surgical History?: Yes Hx Breast Surgery: Yes (reduction) Additional Surgical History: Mirena, HYSTEROSCOPY. c-sectin x3 - Social History Smoking Status: Never Smoker Substance Use Type: None - Medications Home Medications: Home Medications Medication Instructions Recorded Confirmed Last Taken Type Acetaminophen [Acetaminophen TAB] 650 mg PO Q4H PRN tablet 12/22/20 Unknown Rx Ascorbic Acid [Vitamin C] 1,000 mg PO BID #30 tablet 12/22/20 Unknown Rx Azithromycin [Zithromax TAB] 500 mg PO QDAY #2 tablet 12/22/20 Unknown Rx Cholecalciferol (Vitamin D3) 5,000 unit PO DAILY #30 tablet 12/22/20 Unknown Rx [Vitamin D3] Darunavir/Cob/Emtri/Tenof Alaf 1 each PO DAILY #30 tablet 12/22/20 Unknown Rx [Symtuza [id number] mg Tab] Dolutegravir [Tivicay] 50 mg PO DAILY #30 tablet 12/22/20 Unknown Rx Famotidine [Pepcid] 20 mg PO BID #60 tablet 12/22/20 Unknown Rx Insulin Glargine [Lantus VIAL] 33 units SUB-Q QAMDIAB #20 units 12/22/20 Unknown Rx Metformin HCl [metFORMIN ER 500 mg PO DAILY #30 tab.er.24 12/22/20 Unknown Rx Osmotic] Nystatin [Nystatin SUSP] 100,000 unit PO TID #20 udc 12/22/20 Unknown Rx Ondansetron [Zofran ODT TAB] 4 mg PO Q8HR PRN #14 tab.rapdis 12/22/20 Unknown Rx Sulfamethoxazole/Trimethoprim 1 each PO TID #126 tablet 12/22/20 Unknown Rx [Bactrim DS TAB] Zinc Sulfate 220 mg PO DAILY #10 capsule 12/22/20 Unknown Rx Zolpidem [Ambien] 5 mg PO QHS PRN #10 tablet 12/22/20 Unknown Rx oxyCODONE /ACETAMINOPHEN [Percocet 2 tab PO Q6H PRN #14 tablet 12/22/20 Unknown Rx 5/325 mg] polyethylene glycoL 3350 [Miralax 17 gm PO QDAY PRN #10 powd.pack 12/22/20 Unknown Rx 3350] predniSONE 20 mg PO QDAY #30 tablet 12/22/20 Unknown Rx traMADoL [Ultram 50 MG tab] 50 mg PO Q8HR PRN #15 tablet 12/22/20 Unknown Rx ED Physical Exam - General Limitations: No Limitations General appearance: alert, in no apparent distress - Head Head exam: Present: atraumatic, normocephalic - Eye Eye exam: Present: normal appearance, EOMI, other (decreased visual acuity in right eye) - ENT ENT exam: Present: mucous membranes moist - Neck Neck exam: Present: normal inspection - Respiratory Respiratory exam: Present: normal lung sounds bilaterally. Absent: respiratory distress - Cardiovascular Cardiovascular Exam: Present: normal rhythm, tachycardia - GI/Abdominal GI/Abdominal exam: Present: soft. Absent: distended, tenderness - Extremities Exam Extremities exam: Present: normal inspection - Neurological Exam Neurological exam: Present: alert, oriented X3. Absent: motor sensory deficit - Psychiatric Psychiatric exam: Present: normal affect, normal mood - Skin Skin exam: Present: warm, dry, intact, normal color ED Course Vital Signs 04/24/21 04/24/21 04/24/21 14:45 15:36 15:42 Temperature 99.0 F Pulse Rate 113 H Respiratory 16 Rate Blood Pressure Blood Pressure 122/65 [Right] O2 Sat by Pulse 100 96 100 Oximetry 04/24/21 04/24/21 04/24/21 15:46 16:00 16:16 Temperature Pulse Rate 94 H 96 H 88 Respiratory 11 L 17 14 Rate Blood Pressure 132/85 145/91 125/75 Blood Pressure [Right] O2 Sat by Pulse 99 100 100 Oximetry 04/24/21 04/24/21 04/24/21 16:30 16:46 17:00 Temperature Pulse Rate 89 87 87 Respiratory 16 18 14 Rate Blood Pressure 133/85 122/66 129/73 Blood Pressure [Right] O2 Sat by Pulse 100 100 99 Oximetry 04/24/21 04/24/21 04/24/21 17:16 18:41 18:45 Temperature Pulse Rate 90 Respiratory 28 H Rate Blood Pressure 117/84 108/74 Blood Pressure [Right] O2 Sat by Pulse 99 95 93 Oximetry ED Medical Decision Making - Lab Data Result diagrams: 04/24/21 15:45 04/24/21 15:45 - Radiology Data Radiology results: report reviewed, image reviewed - Medical Decision Making 36-year-old female sent to ED from urgent care for evaluation of 2-week history of dizziness, blurry vision, noticed in the right hand. Patient with no neuro deficits on exam, however patient does have blurred vision in the right eye. Glucose is slightly elevated, however patient states in DKA at this time. Patient has been advised to take her Metformin scheduled and follow-up with her PCP. Critical care attestation.: If time is entered above; I have spent that time in minutes in the direct care of this critically ill patient, excluding procedure time. ED Disposition Clinical Impression: Hyperglycemia, Vision blurred Disposition: 01 HOME / SELF CARE / HOMELESS Is pt being admited?: No Condition: Stable Instructions: Blurred Vision, Adult, Hyperglycemia, [id number] Referrals: PRIMARY CARE, [Primary Care Provider] - 3-5 Days ELIANA WOOD MD [Staff Physician] - 3-5 Days Time of Disposition: 18:47
--- NOTE | 2021-04-24 18:30 | Cat Scan Report ---
CT head/brain wo con INDICATION / CLINICAL INFORMATION: 36 years Female; RODRIGUES, R vision blurred, right numbness x 2 weeks. TECHNIQUE: Routine CT head without contrast. All CT scans at this location are performed using CT dos e reduction for ALARA by means of automated exposure control. COMPARISON: The study is compared to previous CT of 02/15/2019. FINDINGS: BRAIN / INTRACRANIAL CONTENTS: The brain appears to demonstrate appropriate attenuation. The ventricu lar system remains within normal limits in size and configuration. There is no CT evidence of acute i ntracranial hemorrhage or significant mass effect ORBITS: No significant abnormality of visualized orbits. SINUSES / MASTOIDS: No significant abnormality in the visualized paranasal sinuses or mastoid air esau ls. CRANIOCERVICAL JUNCTION: No significant abnormality. ADDITIONAL FINDINGS: There is relative prominence of the visualized nasopharyngeal soft tissues which may reflect lymphoid hypertrophy. The findings appear to correlate with the prior study. IMPRESSION: 1. There is no CT evidence of acute intracranial process. Signer Name: [email or web address] Sexton MD Signed: 04/24/2021 6:26 PM Workstation Name: [id number]
[2021-04-24 18:46] VITALS: BP 108/74
== END 2021-04-24 19:03 | disposition home or self-care (01) ==
LOC: ED 14:34
DX: R73.9 Hyperglycemia, unspecified (principal); H53.8 Other visual disturbances; Z86.79 Personal history of other diseases of the circulatory system
CPT/HCPCS: 36415; 70450; 80048; 82010; 82805; 85025; 99284

== ENCOUNTER 2021-05-10 15:12 | Emergency (ER) | payer MEDICAID ==
[2021-05-10 15:25] VITALS: BP 116/71
== END 2021-05-10 15:30 | disposition left against medical advice (07) ==
LOC: ED 15:12
DX: R73.9 Hyperglycemia, unspecified (principal); Z53.21 Procedure and treatment not carried out due to patient leaving prior to being seen by health care provider
CPT/HCPCS: 82962

== ENCOUNTER 2021-05-27 02:00 | Emergency (ER) | payer MEDICAID ==
[2021-05-27 02:34] VITALS: BP 124/80
--- NOTE | 2021-05-27 02:55 | Emergency Department Report ---
ED General Adult HPI - General Chief complaint: Hyperglycemia Stated complaint: OUT OF INSULIN X 1 WEEK Source: patient Mode of arrival: Ambulatory Limitations: No Limitations - History of Present Illness Initial comments: Patient is a 36-year-old -[place] female with a history of type 2 diabetes and CHF as well as HIV who presents to the ED with complaint of persistent elevated blood sugar. Patient states that she takes Metformin 500 mg daily and occasionally uses insulin to supplement the Metformin but states that she ran out of her insulin about 1 week ago. Patient states that prior to arrival in the ED, her blood sugar was over 500 mg/dL. Patient states that she decided come to the ED for evaluation. Patient denies fever, chills, diarrhea, dizziness, syncope, headache, chest pain, shortness of breath, abdominal pain, nausea and vomiting, MD Complaint: Elevated blood sugar; medication refil -: Sudden, week(s) (1) Radiation: non-radiation Severity scale (0 -10): 0 Consistency: intermittent Improves with: none Worsens with: none Associated Symptoms: malaise. denies: denies other symptoms, confusion, chest pain, cough, fever/chills, headaches, loss of appetite, nausea/vomiting, rash, seizure, shortness of breath, syncope, weakness Treatments Prior to Arrival: none - Related Data Previous Rx's Medication Instructions Recorded Last Taken Type Acetaminophen [Acetaminophen TAB] 650 mg PO Q4H PRN tablet 12/22/20 Unknown Rx Ascorbic Acid [Vitamin C] 1,000 mg PO BID #30 tablet 12/22/20 Unknown Rx Azithromycin [Zithromax TAB] 500 mg PO QDAY #2 tablet 12/22/20 Unknown Rx Cholecalciferol (Vitamin D3) 5,000 unit PO DAILY #30 tablet 12/22/20 Unknown Rx [Vitamin D3] Darunavir/Cob/Emtri/Tenof Alaf 1 each PO DAILY #30 tablet 12/22/20 Unknown Rx [Symtuza 094-884-306-10 mg Tab] Dolutegravir [Tivicay] 50 mg PO DAILY #30 tablet 12/22/20 Unknown Rx Famotidine [Pepcid] 20 mg PO BID #60 tablet 12/22/20 Unknown Rx Metformin HCl [metFORMIN ER 500 mg PO DAILY #30 tab.er.24 12/22/20 Unknown Rx Osmotic] Nystatin [Nystatin SUSP] 100,000 unit PO TID #20 udc 12/22/20 Unknown Rx Ondansetron [Zofran ODT TAB] 4 mg PO Q8HR PRN #14 tab.rapdis 12/22/20 Unknown Rx Sulfamethoxazole/Trimethoprim 1 each PO TID #126 tablet 12/22/20 Unknown Rx [Bactrim DS TAB] Zinc Sulfate 220 mg PO DAILY #10 capsule 12/22/20 Unknown Rx Zolpidem [Ambien] 5 mg PO QHS PRN #10 tablet 12/22/20 Unknown Rx oxyCODONE /ACETAMINOPHEN [Percocet 2 tab PO Q6H PRN #14 tablet 12/22/20 Unknown Rx 5/325 mg] polyethylene glycoL 3350 [Miralax 17 gm PO QDAY PRN #10 powd.pack 12/22/20 Unknown Rx 3350] predniSONE 20 mg PO QDAY #30 tablet 12/22/20 Unknown Rx traMADoL [Ultram 50 MG tab] 50 mg PO Q8HR PRN #15 tablet 12/22/20 Unknown Rx Insulin Glargine [Lantus VIAL] 33 units SUB-Q QAMDIAB #20 units 05/27/21 Unknown Rx Allergies Allergy/AdvReac Type Severity Reaction Status Date / Time Penicillins Allergy Swelling Verified 05/10/21 15:16 ED Review of Systems ROS: Stated complaint: OUT OF INSULIN X 1 WEEK Other details as noted in HPI Constitutional: malaise, other (hyperglycemia, out of medication). denies: chills, fever Eyes: denies: eye pain, eye discharge, vision change ENT: denies: ear pain, throat pain Respiratory: denies: cough, shortness of breath, wheezing Cardiovascular: denies: chest pain, palpitations Endocrine: no symptoms reported Gastrointestinal: denies: abdominal pain, nausea, vomiting, diarrhea Genitourinary: denies: urgency, dysuria, discharge Musculoskeletal: denies: back pain, joint swelling, arthralgia Skin: denies: rash, lesions Neurological: denies: headache, weakness, paresthesias Psychiatric: denies: anxiety, depression Hematological/Lymphatic: denies: easy bleeding, easy bruising ED Past Medical Hx - Past Medical History Previous Medical History?: Yes Hx Hypertension: No Hx Heart Attack/AMI: No Hx Congestive Heart Failure: Yes Hx Diabetes: Yes Hx Liver Disease: No Hx Renal Disease: No Hx Asthma: No Hx COPD: No Hx HIV: Yes Additional medical history: HIV positive - Surgical History Past Surgical History?: Yes Hx Breast Surgery: Yes (reduction) Additional Surgical History: Mirena, HYSTEROSCOPY. c-sectin x3 - Social History Smoking Status: Never Smoker Substance Use Type: None - Medications Home Medications: Home Medications Medication Instructions Recorded Confirmed Last Taken Type Acetaminophen [Acetaminophen TAB] 650 mg PO Q4H PRN tablet 12/22/20 Unknown Rx Ascorbic Acid [Vitamin C] 1,000 mg PO BID #30 tablet 12/22/20 Unknown Rx Azithromycin [Zithromax TAB] 500 mg PO QDAY #2 tablet 12/22/20 Unknown Rx Cholecalciferol (Vitamin D3) 5,000 unit PO DAILY #30 tablet 12/22/20 Unknown Rx [Vitamin D3] Darunavir/Cob/Emtri/Tenof Alaf 1 each PO DAILY #30 tablet 12/22/20 Unknown Rx [Symtuza [id number] mg Tab] Dolutegravir [Tivicay] 50 mg PO DAILY #30 tablet 12/22/20 Unknown Rx Famotidine [Pepcid] 20 mg PO BID #60 tablet 12/22/20 Unknown Rx Metformin HCl [metFORMIN ER 500 mg PO DAILY #30 tab.er.24 12/22/20 Unknown Rx Osmotic] Nystatin [Nystatin SUSP] 100,000 unit PO TID #20 udc 12/22/20 Unknown Rx Ondansetron [Zofran ODT TAB] 4 mg PO Q8HR PRN #14 tab.rapdis 12/22/20 Unknown Rx Sulfamethoxazole/Trimethoprim 1 each PO TID #126 tablet 12/22/20 Unknown Rx [Bactrim DS TAB] Zinc Sulfate 220 mg PO DAILY #10 capsule 12/22/20 Unknown Rx Zolpidem [Ambien] 5 mg PO QHS PRN #10 tablet 12/22/20 Unknown Rx oxyCODONE /ACETAMINOPHEN [Percocet 2 tab PO Q6H PRN #14 tablet 12/22/20 Unknown Rx 5/325 mg] polyethylene glycoL 3350 [Miralax 17 gm PO QDAY PRN #10 powd.pack 12/22/20 Unknown Rx 3350] predniSONE 20 mg PO QDAY #30 tablet 12/22/20 Unknown Rx traMADoL [Ultram 50 MG tab] 50 mg PO Q8HR PRN #15 tablet 12/22/20 Unknown Rx Insulin Glargine [Lantus VIAL] 33 units SUB-Q QAMDIAB #20 units 05/27/21 Unknown Rx ED Physical Exam - General Limitations: No Limitations General appearance: alert, in no apparent distress - Head Head exam: Present: atraumatic, normocephalic, normal inspection - Eye Eye exam: Present: normal appearance, PERRL, EOMI Pupils: Present: normal accommodation - ENT ENT exam: Present: normal exam, normal orophraynx, mucous membranes moist, TM's normal bilaterally, normal external ear exam - Neck Neck exam: Present: normal inspection, full ROM - Respiratory Respiratory exam: Present: normal lung sounds bilaterally. Absent: respiratory distress, wheezes, rales, rhonchi, chest wall tenderness, accessory muscle use, prolonged expiratory, other - Cardiovascular Cardiovascular Exam: Present: regular rate, normal rhythm, normal heart sounds. Absent: systolic murmur, diastolic murmur, rubs, gallop - GI/Abdominal GI/Abdominal exam: Present: soft, normal bowel sounds. Absent: tenderness, guarding, rebound, hyperactive bowel sounds, hypoactive bowel sounds, organomegaly, mass - Extremities Exam Extremities exam: Present: normal inspection, full ROM, normal capillary refill - Back Exam Back exam: Present: normal inspection, full ROM. Absent: tenderness, CVA tenderness (R), CVA tenderness (L), muscle spasm, paraspinal tenderness, vertebral tenderness, rash noted - Neurological Exam Neurological exam: Present: alert, oriented X3, CN II-XII intact, normal gait, reflexes normal - Psychiatric Psychiatric exam: Present: normal affect, normal mood - Skin Skin exam: Present: warm, dry, intact, normal color. Absent: rash ED Course Vital Signs 05/27/21 02:25 Temperature 98.1 F Pulse Rate 91 H Respiratory 18 Rate Blood Pressure 124/80 O2 Sat by Pulse 99 Oximetry ED Medical Decision Making - Medical Decision Making This is a 36-year-old -[place] female with a history of type 2 diabetes and CHF as well as HIV who presents to the ED with complaint of persistent elevated blood sugar. Patient states that she takes Metformin 500 mg daily and occasionally uses insulin to supplement the Metformin but states that she ran out of her insulin about 1 week ago. Patient states that prior to arrival in the ED, her blood sugar was over 500 mg/dL. Patient states that she decided come to the ED for evaluation. In the ED, patient is alert and oriented x3 and is not in distress. Patient's [id number] blood glucose was 248 mg/dL. Sonal cazares has no other symptoms at this time but requests for refill on her medications. Patient was counseled on importance of blood sugar control and the management of type 2 diabetes. Patient was advised to take Metformin 5 mg twice a day instead of once daily for optimal blood sugar control. Patient was also advised to follow-up with her primary care physician in 3 to 5 days for reevaluation. Patient was advised return to the ED immediately if her symptoms get worse. - Differential Diagnosis Hyperglycemia; anxiety Critical care attestation.: If time is entered above; I have spent that time in minutes in the direct care of this critically ill patient, excluding procedure time. 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 Follow-up with your primary care physician in 3 to 5 days for reevaluation. Return to the ED immediately if symptoms get worse Prescriptions: Insulin Glargine [Lantus VIAL] 33 units SUB-Q QAMDIAB #20 units Referrals: KAYCE YEN MD [Staff Physician] - 3-5 Days Time of Disposition: 02:56 Print Language: QATARI
== END 2021-05-27 03:07 | disposition home or self-care (01) ==
LOC: ED 02:00
DX: E11.65 Type 2 diabetes mellitus with hyperglycemia (principal); I50.9 Heart failure, unspecified; Z21 Asymptomatic human immunodeficiency virus [HIV] infection status; Z90.710 Acquired absence of both cervix and uterus; Z98.890 Other specified postprocedural states; Z88.0 Allergy status to penicillin
CPT/HCPCS: 82962; 99283

== ENCOUNTER → 2021-07-10 | Emergency (ER) | payer MEDICAID ==
[~2021-07-10] MED LIST changes: -LACTATED RINGERS 1,000 ML IV SCH; +SODIUM CHLORIDE 0.9% 1000 ML 1,000 ML IV ONE; -VERSED IV NR
--- NOTE | 2021-07-10 02:14 | Emergency Department Report ---
ED General Adult HPI - General Stated complaint: AMS/HYPERGLYCEMIA Time Seen by Provider: 07/10/21 02:06 Source: EMS - History of Present Illness Initial comments: Patient is 36 years old female with history of insulin-dependent diabetes and HIV. Patient brought to the emergency room via EMS from home for evaluation of altered mental status. EMS stated that patient walked into her family living room and found to be confused. Upon arrival to the ER patient is obtunded but responding to voice stimuli and answering questions. Patient denied any chest pain or shortness of breath. No abdominal pain, nausea or vomiting. EMS stated that patient blood glucose was 250. - Related Data Previous Rx's Medication Instructions Recorded Last Taken Type Acetaminophen [Acetaminophen TAB] 650 mg PO Q4H PRN tablet 12/22/20 Unknown Rx Ascorbic Acid [Vitamin C] 1,000 mg PO BID #30 tablet 12/22/20 Unknown Rx Azithromycin [Zithromax TAB] 500 mg PO QDAY #2 tablet 12/22/20 Unknown Rx Cholecalciferol (Vitamin D3) 5,000 unit PO DAILY #30 tablet 12/22/20 Unknown Rx [Vitamin D3] Darunavir/Cob/Emtri/Tenof Alaf 1 each PO DAILY #30 tablet 12/22/20 Unknown Rx [Symtuza [id number] mg Tab] Dolutegravir [Tivicay] 50 mg PO DAILY #30 tablet 12/22/20 Unknown Rx Famotidine [Pepcid] 20 mg PO BID #60 tablet 12/22/20 Unknown Rx Metformin HCl [metFORMIN ER 500 mg PO DAILY #30 tab.er.24 12/22/20 Unknown Rx Osmotic] Nystatin [Nystatin SUSP] 100,000 unit PO TID #20 udc 12/22/20 Unknown Rx Ondansetron [Zofran ODT TAB] 4 mg PO Q8HR PRN #14 tab.rapdis 12/22/20 Unknown Rx Sulfamethoxazole/Trimethoprim 1 each PO TID #126 tablet 12/22/20 Unknown Rx [Bactrim DS TAB] Zinc Sulfate 220 mg PO DAILY #10 capsule 12/22/20 Unknown Rx Zolpidem [Ambien] 5 mg PO QHS PRN #10 tablet 12/22/20 Unknown Rx oxyCODONE /ACETAMINOPHEN [Percocet 2 tab PO Q6H PRN #14 tablet 12/22/20 Unknown Rx 5/325 mg] polyethylene glycoL 3350 [Miralax 17 gm PO QDAY PRN #10 powd.pack 12/22/20 Unknown Rx 3350] predniSONE 20 mg PO QDAY #30 tablet 12/22/20 Unknown Rx traMADoL [Ultram 50 MG tab] 50 mg PO Q8HR PRN #15 tablet 12/22/20 Unknown Rx Insulin Glargine [Lantus VIAL] 33 units SUB-Q QAMDIAB #20 units 05/27/21 Unknown Rx Allergies Allergy/AdvReac Type Severity Reaction Status Date / Time Penicillins Allergy Swelling Verified 05/10/21 15:16 ED Review of Systems ROS: Stated complaint: AMS/HYPERGLYCEMIA Other details as noted in HPI Comment: All other systems reviewed and negative Constitutional: denies: chills, fever Respiratory: denies: cough, shortness of breath, SOB with exertion Cardiovascular: denies: chest pain, palpitations Gastrointestinal: denies: abdominal pain, nausea, vomiting, diarrhea, constipation, hematemesis Musculoskeletal: denies: back pain Neurological: denies: headache, weakness, numbness, paresthesias, confusion ED Past Medical Hx - Past Medical History Hx Hypertension: No Hx Heart Attack/AMI: No Hx Congestive Heart Failure: Yes Hx Diabetes: Yes Hx Liver Disease: No Hx Renal Disease: No Hx Asthma: No Hx COPD: No Hx HIV: Yes Additional medical history: HIV positive - Surgical History Hx Breast Surgery: Yes (reduction) Additional Surgical History: Mirena, HYSTEROSCOPY. c-sectin x3 - Social History Smoking Status: Never Smoker Substance Use Type: None - Medications Home Medications: Home Medications Medication Instructions Recorded Confirmed Last Taken Type Acetaminophen [Acetaminophen TAB] 650 mg PO Q4H PRN tablet 12/22/20 Unknown Rx Ascorbic Acid [Vitamin C] 1,000 mg PO BID #30 tablet 12/22/20 Unknown Rx Azithromycin [Zithromax TAB] 500 mg PO QDAY #2 tablet 12/22/20 Unknown Rx Cholecalciferol (Vitamin D3) 5,000 unit PO DAILY #30 tablet 12/22/20 Unknown Rx [Vitamin D3] Darunavir/Cob/Emtri/Tenof Alaf 1 each PO DAILY #30 tablet 12/22/20 Unknown Rx [Symtuza [id number] mg Tab] Dolutegravir [Tivicay] 50 mg PO DAILY #30 tablet 12/22/20 Unknown Rx Famotidine [Pepcid] 20 mg PO BID #60 tablet 12/22/20 Unknown Rx Metformin HCl [metFORMIN ER 500 mg PO DAILY #30 tab.er.24 12/22/20 Unknown Rx Osmotic] Nystatin [Nystatin SUSP] 100,000 unit PO TID #20 udc 12/22/20 Unknown Rx Ondansetron [Zofran ODT TAB] 4 mg PO Q8HR PRN #14 tab.rapdis 12/22/20 Unknown Rx Sulfamethoxazole/Trimethoprim 1 each PO TID #126 tablet 12/22/20 Unknown Rx [Bactrim DS TAB] Zinc Sulfate 220 mg PO DAILY #10 capsule 12/22/20 Unknown Rx Zolpidem [Ambien] 5 mg PO QHS PRN #10 tablet 12/22/20 Unknown Rx oxyCODONE /ACETAMINOPHEN [Percocet 2 tab PO Q6H PRN #14 tablet 12/22/20 Unknown Rx 5/325 mg] polyethylene glycoL 3350 [Miralax 17 gm PO QDAY PRN #10 powd.pack 12/22/20 Unknown Rx 3350] predniSONE 20 mg PO QDAY #30 tablet 12/22/20 Unknown Rx traMADoL [Ultram 50 MG tab] 50 mg PO Q8HR PRN #15 tablet 12/22/20 Unknown Rx Insulin Glargine [Lantus VIAL] 33 units SUB-Q QAMDIAB #20 units 05/27/21 Unknown Rx ED Physical Exam - General General appearance: alert, in no apparent distress - Head Head exam: Present: atraumatic, normocephalic, normal inspection - Eye Eye exam: Present: normal appearance - ENT ENT exam: Present: mucous membranes dry - Neck Neck exam: Present: normal inspection, full ROM. Absent: tenderness, meningismus - Respiratory Respiratory exam: Present: normal lung sounds bilaterally - Cardiovascular Cardiovascular Exam: Present: regular rate, normal rhythm, normal heart sounds - GI/Abdominal GI/Abdominal exam: Present: soft, normal bowel sounds. Absent: distended, tenderness, guarding, rebound, rigid, organomegaly, mass, bruit, pulsatile mass, hernia - Extremities Exam Extremities exam: Present: normal inspection, full ROM, normal capillary refill. Absent: tenderness, pedal edema, calf tenderness - Back Exam Back exam: Present: normal inspection, full ROM. Absent: CVA tenderness (R), CVA tenderness (L) - Neurological Exam Neurological exam: Present: alert, CN II-XII intact. Absent: motor sensory deficit - Psychiatric Psychiatric exam: Present: normal mood - Skin Skin exam: Present: warm, intact, normal color ED Course Vital Signs 07/10/21 02:18 Temperature 98.7 F Pulse Rate 89 Respiratory 16 Rate Blood Pressure 131/86 [Left] O2 Sat by Pulse 100 Oximetry ED Medical Decision Making - Lab Data Result diagrams: 07/10/21 02:59 07/10/21 02:59 - Radiology Data Radiology results: report reviewed - Medical Decision Making Patient is 36 years old female with history of insulin-dependent diabetes and HIV. Patient brought to the emergency room via EMS from home for evaluation of altered mental status. EMS stated that patient walked into her family living room and found to be confused. Upon arrival to the ER patient is obtunded but responding to voice stimuli and answering questions. Patient denied any chest pain or shortness of breath. No abdominal pain, nausea or vomiting. EMS stated that patient blood glucose was 250. Patient remained stable in the ER with a stable vital sign. Labs reviewed and is unremarkable slightly elevated glucose however anion gap is 13 no evidence of DKA. Patient is alert, oriented x3 no acute distress. Patient advised to follow-up with her primary care physician in the next 2 to 3 days and to return to the ER if you develop any new symptoms. Critical care attestation.: If time is entered above; I have spent that time in minutes in the direct care of this critically ill patient, excluding procedure time. ED Disposition Clinical Impression: Acute hyperglycemia Disposition: HOME / SELF CARE / HOMELESS Is pt being admited?: No Condition: Stable Instructions: Hyperglycemia, [id number] Referrals: PRIMARY CARE, [Referring] - 3-5 Days
[2021-07-10 02:36] VITALS: BP 131/86
[2021-07-10 03:14] LABS: Hematocrit 25.8 % (30.3-42.9); Hemoglobin 8.2 gm/dl (10.1-14.3); Mean Corpuscular HGB Conc 32 % (30-34); Mean Corpuscular Volume 73 fl (79-97); Platelet Count 296 K/mm3 (140-440); Red Blood Count 3.52 M/mm3 (3.65-5.03); Red Cell Distribution Width 16.9 % (13.2-15.2)
[2021-07-10 03:57] LABS: Blood Urea Nitrogen 9 mg/dL (7-17); Calcium 8.8 mg/dL (8.4-10.2); Hemolysis Index 2
[2021-07-10 03:59] LABS: Alanine Aminotransferase 17 units/L (7-56); Albumin 3.7 g/dL (3.9-5)
[2021-07-10 04:05] LABS: BUN/Creatinine Ratio 13; Bilirubin,Direct < 0.2 mg/dL (0-0.2)
[2021-07-10 04:19] LABS: Basophils % (Manual) 0 % (0.0-1.8); Hypochromasia 1+; Total Cells Counted 100
[2021-07-10 04:20] LABS: Ovalocytes 1+; Platelet Estimate Consistent w Auto
--- NOTE | 2021-07-10 04:25 | XRay Report ---
CHEST 1 VIEW 07/10/2021 3:11 AM INDICATION / CLINICAL INFORMATION: Altered Mental Status. COMPARISON: 12/13/20 FINDINGS: SUPPORT DEVICES: None. HEART / MEDIASTINUM: No significant abnormality. LUNGS / PLEURA: No significant pulmonary or pleural abnormality. No pneumothorax. ADDITIONAL FINDINGS: No significant additional findings. IMPRESSION: 1. No acute findings. Signer Name: Giuseppe Barnhart MD Signed: 07/10/2021 4:21 AM Workstation Name: [id number]
== END | disposition home or self-care (01) ==
LOC: ED 01:56
DX: E11.65 Type 2 diabetes mellitus with hyperglycemia (principal); Z88.0 Allergy status to penicillin
CPT/HCPCS: 36415; 71045; 80048; 80076; 80320; 82140; 82962; 84703; 85007; 85025; 99284; G0480

== ENCOUNTER 2021-09-27 00:57 | Emergency (ER) | payer MEDICAID ==
[2021-09-27 01:22] VITALS: BP 142/89
--- NOTE | 2021-09-27 01:42 | Emergency Department Report ---
HPI - General Chief Complaint: Hyperglycemia Time Seen by Provider: 09/27/21 01:23 - HPI HPI: The patient was seen earlier today for generalized dizziness and malaise. She has a history of anemia and she has been transfused in the past. She was then to be admitted to the hospital but she left AGAINST MEDICAL ADVICE earlier today. She did not want to be admitted and she still does not want to be admitted. She returned because she got scared because she had a uncle that after leaving the hospital AGAINST MEDICAL ADVICE. She reports that she is been experiencing for the last several weeks some issues with her extremities where she is getting these tingling sensations and sometimes has burning pain. She is a longtime diabetic. She has been rationing her insulin. Today she had a blood sugar a little above 500 and gave herself 35 units of insulin. By the time she got to the hospital she was in the 250s. She has had mild polydipsia polyuria. She is here because she would like to get a prescription for some iron pills to address her chronic anemia. She currently denies nausea vomiting fever chills focal weakness headache chest pain shortness of breath or any other associated symptoms. The patient has a history of chronic anemia, HIV with good antiretroviral compliance and undetectable levels and insulin-dependent diabetes since she was 17. ED Past Medical Hx - Past Medical History Hx Hypertension: No Hx Heart Attack/AMI: No Hx Congestive Heart Failure: Yes Hx Diabetes: Yes Hx Liver Disease: No Hx Renal Disease: No Hx Asthma: No Hx COPD: No Hx HIV: Yes Additional medical history: HIV positive - Surgical History Hx Breast Surgery: Yes (reduction) Additional Surgical History: Mirena, HYSTEROSCOPY. c-sectin x3 - Social History Smoking Status: Never Smoker Substance Use Type: None - Medications Home Medications: Home Medications Medication Instructions Recorded Confirmed Last Taken Type Acetaminophen [Acetaminophen TAB] 650 mg PO Q4H PRN tablet 12/22/20 Unknown Rx Ascorbic Acid [Vitamin C] 1,000 mg PO BID #30 tablet 12/22/20 Unknown Rx Azithromycin [Zithromax TAB] 500 mg PO QDAY #2 tablet 12/22/20 Unknown Rx Cholecalciferol (Vitamin D3) 5,000 unit PO DAILY #30 tablet 12/22/20 Unknown Rx [Vitamin D3] Darunavir/Cob/Emtri/Tenof Alaf 1 each PO DAILY #30 tablet 12/22/20 Unknown Rx [Symtuza [id number] mg Tab] Dolutegravir [Tivicay] 50 mg PO DAILY #30 tablet 12/22/20 Unknown Rx Famotidine [Pepcid] 20 mg PO BID #60 tablet 12/22/20 Unknown Rx Metformin HCl [metFORMIN ER 500 mg PO DAILY #30 tab.er.24 12/22/20 Unknown Rx Osmotic] Nystatin [Nystatin SUSP] 100,000 unit PO TID #20 udc 12/22/20 Unknown Rx Ondansetron [Zofran ODT TAB] 4 mg PO Q8HR PRN #14 tab.rapdis 12/22/20 Unknown Rx Sulfamethoxazole/Trimethoprim 1 each PO TID #126 tablet 12/22/20 Unknown Rx [Bactrim DS TAB] Zinc Sulfate 220 mg PO DAILY #10 capsule 12/22/20 Unknown Rx Zolpidem [Ambien] 5 mg PO QHS PRN #10 tablet 12/22/20 Unknown Rx oxyCODONE /ACETAMINOPHEN [Percocet 2 tab PO Q6H PRN #14 tablet 12/22/20 Unknown Rx 5/325 mg] polyethylene glycoL 3350 [Miralax 17 gm PO QDAY PRN #10 powd.pack 12/22/20 Unknown Rx 3350] predniSONE 20 mg PO QDAY #30 tablet 12/22/20 Unknown Rx traMADoL [Ultram 50 MG tab] 50 mg PO Q8HR PRN #15 tablet 12/22/20 Unknown Rx Insulin Glargine [Lantus VIAL] 33 units SUB-Q QAMDIAB #20 units 05/27/21 Unknown Rx Ferrous Sulfate [Ferrous Sulfate 324 mg PO DAILY 90 Days #90 09/27/21 Unknown Rx 324 MG] ED Review of Systems ROS: Stated complaint: CHEST PAIN Other details as noted in HPI Comment: All other systems reviewed and negative Physical Exam - Physical Exam Vital Signs: Vital Signs 09/27/21 01:14 Temperature 98.6 F Pulse Rate 96 H Respiratory 20 Rate Blood Pressure 142/89 [Left] O2 Sat by Pulse 100 Oximetry Physical Exam: Physical Exam Constitutional: General: She is not in acute distress. Appearance: She is not diaphoretic. HENT: Head: Normocephalic. Eyes: Pupils: Pupils are equal, round, and reactive to light. Neck: Musculoskeletal: Normal range of motion. Cardiovascular: Rate and Rhythm: Normal rate and regular rhythm. Pulses: Intact distal pulses. Heart sounds: Normal heart sounds. No murmur. Pulmonary: Effort: No respiratory distress. Breath sounds: No wheezing or rales. Chest: Chest wall: No tenderness. Abdominal: General: There is no distension. Palpations: There is no mass. Tenderness: There is no abdominal tenderness. There is no guarding or rebound. Musculoskeletal: Normal range of motion. Skin: General: Skin is warm and dry. Neurological: Mental Status: She is alert and oriented to person, place, and time. Psychiatric: Mood and Affect: Mood and affect normal. Cognition and Memory: Memory normal. Judgment: Judgment normal. ED Course Vital Signs 09/27/21 01:14 Temperature 98.6 F Pulse Rate 96 H Respiratory 20 Rate Blood Pressure 142/89 [Left] O2 Sat by Pulse 100 Oximetry - Reevaluation(s) Reevaluation #1: 09/27/21 01:41 I looked at the patient's laboratories from her last day in the emergency department. She had a blood sugar around 250. Her hemoglobin was above 8. At this time she does not warrant transfusion. I spoke to her that maybe some of the symptoms that she is experiencing could be from diabetic neuropathy. She requested I give her another physician to follow-up with and I gave her the 1 t hat we have for discharges. She will follow up with them or return if any other issues arise. Critical care attestation.: If time is entered above; I have spent that time in minutes in the direct care of this critically ill patient, excluding procedure time. ED Disposition Clinical Impression: Anemia Disposition: 01 HOME / SELF CARE / HOMELESS Is pt being admited?: No Does the pt Need Aspirin: No Condition: Stable Prescriptions: Ferrous Sulfate [Ferrous Sulfate 324 MG] 324 mg PO DAILY 90 Days #90
== END 2021-09-27 01:53 | disposition home or self-care (01) ==
LOC: ED 00:57
DX: D64.9 Anemia, unspecified (principal); E11.9 Type 2 diabetes mellitus without complications
CPT/HCPCS: 99283

== ENCOUNTER 2021-09-28 12:36 | Outpatient (CLI) | payer MEDICAID ==
[2021-09-28 13:23] LABS: Basophils % (Auto) 0.4 % (0.0-1.8); Eosinophils # (Auto) 0.1 K/mm3 (0.0-0.4); Eosinophils % (Auto) 1.9 % (0.0-4.3); Hematocrit 26.2 % (30.3-42.9); Hemoglobin 8.2 gm/dl (10.1-14.3); Lymphocytes # (Auto) 2.3 K/mm3 (1.2-5.4); Lymphocytes % (Auto) 34.1 % (13.4-35.0); Mean Corpuscular HGB Conc 31 % (30-34); Mean Corpuscular Volume 71 fl (79-97); Monocytes # (Auto) 0.7 K/mm3 (0.0-0.8); Monocytes % (Auto) 9.6 % (0.0-7.3); Platelet Count 433 K/mm3 (140-440); Red Blood Count 3.67 M/mm3 (3.65-5.03); Red Cell Distribution Width 15.6 % (13.2-15.2)
[2021-09-28 13:26] LABS: Bilirubin,Urine NEG (Negative); Blood,Urine NEG (Negative); Color,Urine Straw (Yellow); Protein,Urine <15 mg/dL mg/dL (Negative); Urobilinogen,Urine < 2.0 mg/dL (<2.0); WBC,Urine < 1.0 /HPF (0.0-6.0)
[2021-09-28 14:03] LABS: Albumin 3.5 g/dL (3.9-5); BUN/Creatinine Ratio 11; Blood Urea Nitrogen 9 mg/dL (7-17); Calcium 9.2 mg/dL (8.4-10.2); Hemolysis Index 2
== END 2021-09-28 12:37 | disposition home or self-care (01) ==
LOC: LAB 12:36
PROVIDERS: ATTEND Internal Medicine Nephrology
DX: R94.4 Abnormal results of kidney function studies (principal)
CPT/HCPCS: 36415; 80048; 81001; 82040; 84100; 85025

== ENCOUNTER 2021-10-04 02:48 | Emergency (ER) | payer MEDICAID ==
--- NOTE | 2021-10-08 13:46 | Electrocardiograph Report ---
[facility] Test Date: 2021-10-04 Test Time: 03:03:17 Pat Name: ROGELIO DE LA VEGA Department: Room: Gender: F Beck Tender: SHAHZAD Roa : 1985 Requested By: SUZANNA ORDAZ Order Number: [id number] Reading MD: Ronal Franco Measurements Intervals [place] Rate: 90 P: 55 AK: 143 QRS: 36 QRSD: 81 T: 33 QT: 393 QTc: 481 Interpretive Statements Sinus rhythm Probable left atrial enlargement Compared to ECG 09/26/2021 19:50:02 No significant changes Electronically Signed On 10-08-2021 13:46:06 EDT by Ronal Franco
== END 2021-10-04 07:52 | disposition left against medical advice (07) ==
LOC: ED 02:48
DX: R07.9 Chest pain, unspecified (principal); R51.9 Headache, unspecified; Z53.21 Procedure and treatment not carried out due to patient leaving prior to being seen by health care provider
CPT/HCPCS: 93005

== ENCOUNTER 2021-10-17 10:01 | Emergency (ER) | payer MEDICAID ==
[2021-10-17 10:11] VITALS: BP 140/94
[2021-10-17 11:05] LABS: Basophils % (Auto) 0.5 % (0.0-1.8); Eosinophils % (Auto) 0.3 % (0.0-4.3); Hemoglobin 8.3 gm/dl (10.1-14.3); Lymphocytes # (Auto) 1.2 K/mm3 (1.2-5.4); Lymphocytes % (Auto) 37.6 % (13.4-35.0); Mean Corpuscular HGB Conc 31 % (30-34); Mean Corpuscular Volume 70 fl (79-97); Monocytes # (Auto) 0.4 K/mm3 (0.0-0.8); Monocytes % (Auto) 13.4 % (0.0-7.3); Platelet Count 376 K/mm3 (140-440); Red Blood Count 3.85 M/mm3 (3.65-5.03)
[2021-10-17 11:08] LABS: Blood Urea Nitrogen 8 mg/dL (7-17); Calcium 9.1 mg/dL (8.4-10.2); Hemolysis Index 0
[2021-10-17 11:09] LABS: BUN/Creatinine Ratio 11
--- NOTE | 2021-10-17 18:13 | Electrocardiograph Report ---
[facility] Test Date: 2021-10-17 Test Time: 10:26:01 Pat Name: ROGELIO DE LA VEGA Department: Room: Gender: F Renal Medicine Physician: YOUSIF : 1985 Requested By: ED DOC Order Number: [id number] Reading MD: Ronal Franco Measurements Intervals [place] Rate: 93 P: 47 RI: 131 QRS: 24 QRSD: 90 T: 22 QT: 370 QTc: 461 Interpretive Statements Sinus rhythm Compared to ECG 10/04/2021 03:03:17 No significant changes Electronically Signed On 10-17-2021 18:13:26 EDT by Ronal Franco
== END 2021-10-17 18:24 | disposition left against medical advice (07) ==
LOC: ED 10:01
DX: R07.9 Chest pain, unspecified (principal); Z53.21 Procedure and treatment not carried out due to patient leaving prior to being seen by health care provider
CPT/HCPCS: 36415; 80048; 82805; 82962; 85025; 93005

== ENCOUNTER 2021-11-26 13:26 | Outpatient (CLI) | payer MEDICAID ==
--- NOTE | 2021-11-26 15:35 | Cat Scan Report ---
CTA CHEST WITH CONTRAST INDICATION / CLINICAL INFORMATION: R79.89 ELEVATED D-DIMER. TECHNIQUE: Axial CT images were obtained through the chest after injection of 85 cc Omnipaque 350 IV contrast. 3 plane MIP and/or 3D reconstructions were produced. All CT scans at this location are perf ormed using CT dose reduction for ALARA by means of automated exposure control. COMPARISON: 12/06/20. FINDINGS: PULMONARY EMBOLUS: Excellent opacification of the pulmonary arterial system bilaterally without intra luminal filling defect to suggest acute PTE. THORACIC AORTA: No significant abnormality. HEART: No significant abnormality. CORONARY ARTERY CALCIFICATION: Absent -- None. MEDIASTINUM / PRINCE: No significant abnormality. PLEURA: No pleural effusion. No pneumothorax. LUNGS: There are mild patchy areas of tree-in-bud parenchymal disease and groundglass opacity in the right upper lobe, right middle lobe and right lower lobe. The left lung is clear. ADDITIONAL FINDINGS: None. UPPER ABDOMEN: Small calcified stones in the gallbladder. SKELETAL STRUCTURES: No significant osseous abnormality. IMPRESSION: 1. No CT evidence for pulmonary embolism. 2. Mild patchy areas of parenchymal disease scattered throughout the right lung. Bronchopneumonia is suspected. Atypical causes of pneumonia should be considered. 3. Cholelithiasis. Signer Name: Duane Lundberg MD Signed: 11/26/2021 3:31 PM Workstation Name: [id number]
== END 2021-11-26 13:27 | disposition home or self-care (01) ==
LOC: CT 13:26
PROVIDERS: ATTEND Internal Medicine Cardiovascular Disease
DX: R91.8 Other nonspecific abnormal finding of lung field (principal); R06.02 Shortness of breath; R79.89 Other specified abnormal findings of blood chemistry; I26.99 Other pulmonary embolism without acute cor pulmonale; K80.20 Calculus of gallbladder without cholecystitis without obstruction
CPT/HCPCS: 71275; Q9967